=== PATIENT | female | born 1950 | race Caucasian/White ===

== ENCOUNTER → 2016-11-26 | Outpatient (CLI) | payer MEDICAID ==
[~2016-11-26] MED LIST: AC325T PO; ACHD5005 PO; ALAVERT PO; ALBU17AE3 IH; ALBU8.5H2 IH; ALBU8.5H4 IH; ALBUTEROL; ALPR.5T PO; ALPR1T PO; ASP325TEC PO; ASP81CT PO; ASP81TEC PO; ASPI-587 PO; ASPI-875 PO; ASPI325T32 PO; ATEN-155 PO; ATEN25TA PO; ATOR40TA70 PO; ATOR80TA PO; ATOR80TA75 PO; CETI10CA PO; CETI10TA17 PO; CIPR500T78 PO; CITA10TA PO; CITA10TA70 PO; CITA20TA4 PO; CITA40TA19 PO; CPR500T PO; CTLP20T PO; CYCL10TA9 PO; CYCL7.5T27 PO; DCS100C PO; DEXL60CA PO; DEXT1DRO7 OP; DOXY100C2 PO; FESO4TAB PO; FESO8TAB PO; FLUT1DIS26 IH; FLUT1DIS27 IH; FLUTICASONE; HYDR-2890 PO; HYDR-3714 PO; HYDR-3720 PO; HYDROCODONE PO; IPRA3AMP11 NEB; IPRA3AMP19 IH; IPRATROPIUM; ISM30TCR PO; LEVO125T66 PO; LEVO175T2 PO; LEVO175T3 PO; LEVO200T6 PO; LEVO500T69 PO; LORA10TA7 PO; LOSA50TA6 PO; LRT10T PO; LVT.15T PO; MECL25TA56 PO; METO25TA2 PO; MIRA50TA PO; MNTL10T PO; MTF500T PO; NAPR500T PO; NF-ROPIN4T PO; NITR100C3 PO; OMEP-10 PO; ONDAN4ODT PO; OXB5T PO; OXYC-12 PO; OXYC1TAB87 PO; PHEN100T17 PO; PHEN200T27 PO; PIRO-9 PO; PIRO20CA2 PO; PRCD5U PO; PRD10T PO; PRD20T PO; RANI-10 PO; RANI75TA30 PO; RLX60T PO; RNT150T PO; ROPI2TAB3 PO; ROPI2TAB4 PO; ROPI4TAB21 PO; ROPI4TAB3 PO; ROSU40TA PO; RT-COMBINH IH; SALMETEROL; SCOP1PAT TD; SIMV40TA2 PO; SULF1TAB35 PO; TELM40T PO; TELM80TA3 PO; TOLTA4 PO; TR1C15 TOP; TRAM50TA2 PO; TRIA16.5 NS; TRM50T PO; [UNRECOGNIZED DRUG - CODE] PO; [UNRECOGNIZED DRUG - CODE] PO; [UNRECOGNIZED DRUG - OTHER] VG; singular
--- OUTSIDE RECORDS SUMMARY | 2016-11-26 13:09 | XMS REPORT | Continuity of Care Document ---
Author Author [facility] Organization [facility] Address Unknown Phone Unavailable Care Team Providers Care Client Application Support Specialist Name Role Phone Dp, [facility] PCP [phone] Source Comments Some departments are not documenting in the electronic medical record. If you do not see the information that you expected, contact Release of Information in the Health Information Management department at [phone] for further assistance in locating additional records.[facility] Active Allergies and Adverse Reactions Allergen Noted Date Severity Reactions Comments Pcn 03/07/2015 High ANAPHYLAXIS Rocephin 03/07/2015 High ANAPHYLAXIS Current Medications Prescription Sig. Disp. Refills Start End Date Status Date HYDROCODONE BIT/HOMATROP Take by mouth. Active ME-BR (HYDROCODONE COMPOUND PO) rOPINIRole (REQUIP) 2 mg Take 2 mg by mouth at Active tablet bedtime daily. metFORMIN-XR(+) Take 500 mg by mouth Active (GLUCOPHAGE XR) 500 mg daily with dinner. tablet ranitidine (ZANTAC) 15 Take 75 mg by mouth twice Active mg/mL oral syrup daily. levothyroxine (SYNTHROID) Take 200 mcg by mouth Active 200 mcg tablet daily. citalopram (CELEXA) 10 mg Take 10 mg by mouth Active tablet daily. fluticasone-salmeterol Inhale 1 Puff by mouth Active (ADVAIR DISKUS) 500-50 every 12 hours. mcg inhalation disk fesoterodine ER(+) Take by mouth. Active (TOVIAZ) 8 mg tablet montelukast (SINGULAIR) Take 10 mg by mouth at Active 10 mg tablet bedtime daily. losartan (COZAAR) 50 mg Take 50 mg by mouth Active tablet daily. rosuvastatin (CRESTOR) 40 Take 40 mg by mouth Active mg tablet daily. Active Problems Problem Noted Date Incontinence 03/07/2015 Overview: 10y hx of JOSUE (UUI > ROSA) s/p: 02/2009 (Nory): Anterior repair with PVS - Miniarc 03/2013 (Nory): Macroplastique 02/2014 (Nory): PVS Still with UUI and irritative sxs refractory to mirabegron and multiple anticholinergics UDS (06/03/15): normal capacity, complete emptying; +DO with large leak; +LPP 06/11/15 100u botox-> significant improvement in urgency L ast Assessment & Plan: - patient to call when symptoms begin to appear and will reschedule, possibly at 150u Social History Tobacco Use Types Packs/Day Years Used Date Former Smoker Cigarettes 1 47 Smokeless Tobacco: Never Used Alcohol Use Drinks/Week oz/Week Comments Yes quitt a gr 21 Last Filed Vital Signs Vital Sign Reading Time Taken Blood Pressure 155/79 06/11/2015 9:30 AM CDT Pulse 78 06/11/2015 9:30 AM CDT Temperature 36.4 C (97.5 F) 06/11/2015 9:14 AM CDT Respiratory Rate - - Height 1.626 m (5' 4.02") 06/11/2015 6:40 AM CDT Weight 94.6 kg (208 lb 8.9 oz) 06/11/2015 6:40 AM CDT Body Mass Index 35.78 06/11/2015 6:40 AM CDT Oxygen Saturation 94% 06/11/2015 9:30 AM CDT Plan of Care Health Maintenance Due Date Last Done Comments Physical (Comprehensive) 1955 Exam Pertussis Vaccine 1959 Tetanus Vaccine 1965 Breast Cancer Screening 1988 Colorectal Cancer 1998 Screening Shingles Vaccine 2008 Osteoporosis Screening 2013 Prevnar/Pneumovax (#1) 2013 Influenza Vaccine 07/23/2016 Results from Last 3 Months Not on file
--- NOTE | 2016-11-29 16:29 | ECHOCARDIOGRAPHY REPORT ---
PROCEDURE PHYSICIAN: LELIA PINEDA DATE OF PROCEDURE: 11/26/2016 TWO DIMENSIONAL ECHOCARDIOGRAM REPORT PRIMARY PHYSICIAN: OTHER PHYSICIAN: REFERRING PHYSICIAN: Dr. Daniel Roberson ORDERING PHYSICIAN: INDICATION FOR THE PROCEDURE: 1. Coronary artery disease. 2. Hypertension. MEASUREMENTS DERIVED VALUES LV DIAMETER (LAX) NORMALS NORMALS Diastolic 4.9 (3.6-5.2) Eject. Fract. 45% (60%+/-6%) Systolic (2.3-3.9) Diastolic Vol. % Shortening (0.22-0.42) Systolic Vol. Aortic Root IVS THICKNESS Diastolic 1.1 (0.6-1.1) LVPW THICKNESS Diastolic 1 (0.6-1.1) LA DIAMETER Systolic 3.7 (2.1-3.7) FINDINGS: 1. Technical quality is good. 2. The left ventricle is normal in size with mild left ventricular hypertrophy noted diffusely. 3. Moderate hypokinesia was noted involving the mid to apical anterior wall and anterior septum. Systolic function is reduced. Estimated ejection fraction 45%. 4. The left atrium is normal in size. No clot or thrombus were seen within the left atrium. 5. The right atrium and right ventricle are normal in size. No clot or thrombus were seen within the right side. 6. Mitral valve is normal in morphology with mild mitral regurgitation noted by color Doppler flow. No mitral valve prolapse. No mitral valve stenosis. 7. Aortic valve is trileaflet with normal opening and closing pattern. No significant aortic valve stenosis was noted. Moderate aortic regurgitation noted by color Doppler flow. 8. Tricuspid valve is normal in morphology with mild tricuspid regurgitation noted by color Doppler flow. Doppler across tricuspid valve estimated pulmonary artery pressure of 23+ right atrial pressure. 9. Pulmonic valve is functioning normally. 10. No pericardial effusion. IN CONCLUSION: 1. Mild left ventricular hypertrophy noted diffusely. Moderate hypokinesia involving the mid to apical anterior wall and anterior septum. Systolic function is reduced. Estimated ejection fraction 45%. Some improvement compared to the study of 2013. 2. Moderate aortic regurgitation. 3. Mild mitral regurgitation, mild tricuspid regurgitation. 4. Estimated pulmonary artery pressure of 30 mmHg. Job ID: [id number] Dictated Date: 11/28/2016 08:58:36 Senior Quality Assurance Specialist Date: 11/29/2016 16:26:04 / mirtha
== END ==
LOC: CARD 13:05
PROVIDERS: ATTEND Internal Medicine Cardiovascular Disease
DX: I25.10 Atherosclerotic heart disease of native coronary artery without angina pectoris (principal); R07.9 Chest pain, unspecified; I10 Essential (primary) hypertension; E78.2 Mixed hyperlipidemia; K27.9 Peptic ulcer, site unspecified, unspecified as acute or chronic, without hemorrhage or perforation
CPT/HCPCS: 93306

== ENCOUNTER → 2016-11-30 | Outpatient (CLI) | payer MEDICAID ==
[~2016-11-30] VITALS: Ht 162.6 cm; Wt 93.0 kg
[~2016-11-30] MED LIST changes: +CATHETER FLUSH 10 ML SYR IV PRN; +REGADENOSON 0.4 MG/5 ML SYR (LEXISCAN) IV ONE
--- OUTSIDE RECORDS SUMMARY | 2016-11-30 07:54 | XMS REPORT | Continuity of Care Document ---
Author Author [facility] Organization [facility] Address Unknown Phone Unavailable Care Team Providers Care Automatic Brine Mixer Operator Name Role Phone Dp, [facility] PCP [phone] Source Comments Some departments are not documenting in the electronic medical record. If you do not see the information that you expected, contact Release of Information in the Health Information Management department at [phone] for further assistance in locating additional records.[facility] Active Allergies and Adverse Reactions Allergen Noted [...]
[2016-11-30 09:45] VITALS: BP 127/71
[2016-11-30 09:47] VITALS: BP 112/72
[2016-11-30 09:49] VITALS: BP 116/75
--- NOTE | 2016-12-02 07:19 | STRESS TEST ---
PROCEDURE PHYSICIAN: LELIA PINEDA LEXISCAN MYOVIEW STRESS TEST REPORT DATE OF PROCEDURE: 11/30/2016 REFERRING PHYSICIAN: Dr. Roberson, [facility] INDICATION: Coronary artery disease. Baseline heart rate is 59, baseline blood pressure: 119/70. Baseline EKG: Sinus rhythm with no ischemic changes. SUMMARY: The patient was injected with 10.99 mCi of technetium 99 Myoview and the resting images were obtained. Then the patient received 0.4 mg of Lexiscan followed by 32 mCi of technetium 99 Myoview. Throughout the test, there were no EKG changes. The resting and stress images were reviewed and compared in the short axis, horizontal long axis, and vertical long axis views. Review of the images showed breast attenuation affecting the quality of the study. There is mild decreased uptake at the mid to apical anterior wall, with mild reversibility. SSS is 2, SDS 2, probably secondary to the breast attenuation. On the gated images, the left ventricle appeared to be normal size with normal contractility. Calculated ejection fraction 60%. CONCLUSION: 1. The patient tolerated Lexiscan well. 2. Breast attenuation with decreased uptake at the mid to apical anterior wall, with subtle reversibility, probably secondary to breast attenuation, typical female pattern. No significant ischemia or infarction was noted. 3. Normal left ventricular size with normal contractility. Calculated ejection fraction 60%. Job ID: [id number] Dictated Date: 12/01/2016 08:36:25 Upholstery Auto Trimmer Date: 12/01/2016 10:56:02 / carlos
== END ==
LOC: CARD 07:51
PROVIDERS: ATTEND Internal Medicine Cardiovascular Disease
DX: I25.10 Atherosclerotic heart disease of native coronary artery without angina pectoris (principal); R07.9 Chest pain, unspecified; I10 Essential (primary) hypertension; E78.2 Mixed hyperlipidemia; K27.9 Peptic ulcer, site unspecified, unspecified as acute or chronic, without hemorrhage or perforation
CPT/HCPCS: 78452; 93017

== ENCOUNTER 2017-04-05 15:49 | Emergency (ER) | payer MEDICAID ==
[~2017-04-05] VITALS: Ht 162.6 cm; Wt 95.7 kg
[~2017-04-05 15:49] MED LIST changes: -CATHETER FLUSH 10 ML SYR IV PRN; -REGADENOSON 0.4 MG/5 ML SYR (LEXISCAN) IV ONE
[2017-04-05 16:11] VITALS: BP 134/76
--- NOTE | 2017-04-05 16:16 | ED Back Pain ---
General Chief Complaint: Back Problems Stated Complaint: L HIP/THIGH PAIN Source of Information: Patient Exam Limitations: No Limitations History of Present Illness Time Seen by Provider: 16:15 Initial Comments To ER with left flank pain that radiates to the left hip. This is been going on for about the past 3 days. She denies any known injury and she's never had this before. She denies any dysuria or changes in bowel habits. Timing/Duration: 1-2 Days Severity: Moderate Associated Symptoms: denies symptoms Allergies and Home Medications Allergies Coded Allergies: Penicillins (Unverified Allergy, Unknown, ANAPHALYTIC SHOCK, 03/20/14) ceftriaxone (Unverified Allergy, Unknown, 02/03/13) ceftriaxone sodium (Verified Allergy, Unknown, 03/20/14) Home Medications Albuterol 8.5 Gm Hfa.aer.ad, 1-2 PUFF IH Q4H PRN for SHORTNESS OF BREATH, ( Reported) Albuterol/Ipratropium 3 Ml Nebu, 3 ML NEB Q4H PRN for SHORTNESS OF BREATH, ( Reported) Aspirin 81 Mg Tablet.dr, 81 MG PO DAILY, (Reported) Cetirizine Hcl 10 Mg Capsule, 10 MG PO DAILY, (Reported) Ciprofloxacin 500 Mg Tab, 500 MG PO BID, #14 Ref 0 Prescribed by: LELIA PINEDA on 05/16/15 0730 Citalopram Hydrobromide 10 Mg Tablet, 10 MG PO DAILY, (Reported) Fesoterodine Fumarate 8 Mg Tab.sr.24h, 8 MG PO DAILY, (Reported) Fluticasone/Salmeterol 1 Disk Inhp, 1 PUFF IH BID, (Reported) 1 PUFF Hydrocodone Bit/Acetaminophen 1 Each Tablet, 1 TAB PO EVERY 4-6 HOURS PRN for PAIN, #90 (Reported) Levothyroxine Sodium 200 Mcg Tablet, 200 MCG PO DAILY, (Reported) Losartan Potassium 50 Mg Tablet, 50 MG PO DAILY, (Reported) Mirabegron 50 Mg Tab.er.24h, 50 MG PO DAILY, (Reported) Montelukast Sodium 10 Mg Tablet, 10 MG PO HS, (Reported) Naproxen 500 Mg Tablet, 500 MG PO BID, #20 Ref 0 Prescribed by: PANCHO CRUZ on 04/05/163 Ranitidine Hcl 150 Mg Tablet, 150 MG PO BID, (Reported) Ropinirole Hcl 4 Mg Tablet, 4 MG PO DAILY, (Reported) Rosuvastatin Calcium 40 Mg Tablet, 40 MG PO DAILY, (Reported) Sulfamethoxazole/Trimethoprim 1 Each Tablet, 1 EACH PO BID, #10 Ref 0 Prescribed by: PANCHO CRUZ on 04/05/16 2223 Sulfamethoxazole/Trimethoprim 1 Each Tablet, 1 EACH PO BID, #10 Prescribed by: DEEJAY FELIPE on 04/05/17 1759 Triamcinolone Acet 15 Gm Cr, 0 TOP BID, (Reported) APPLY SPRARINGLY TO AFFECTED AREA(S) Constitutional: see HPI EENTM: see HPI Respiratory: no symptoms reported Cardiovascular: no symptoms reported Genitourinary: no symptoms reported Musculoskeletal: see HPI Skin: no symptoms reported Psychiatric/Neurological: No Symptoms Reported Past Uyfxhfy-Jqzewi-Byhzzc Hx Patient Social History Alcohol Use: Denies Use Recreational Drug Use: No Smoking Status: Never a Smoker Former Smoker/When Quit: Aug 23, 1970 2nd Hand Smoke Exposure: No Recent Foreign Travel: No Contact w/Someone Who Travel: No Recent Hopitalizations: Yes (HYST,ANTONIA,CABG,APPY,BIAT.TKR,BREAST BX,FOOT SURG. 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 Genitourinary Hx Genitourinary Disorders: No Gastrointestinal Hx Gastrointestinal Disorders: Yes Gastrointestinal Disorders: Ulcer Musculoskeletal Hx Musculoskeletal Disorders: Yes (BILAT KNEE REPLACEMENT, BONE SPUR RIGHT HEEL ) Musculoskeletal Disorders: Osteoporosis, Arthritis, Chronic Back Pain Endocrine Hx Endocrine Disorders: Yes Endocrine Disorders: Hypothyroidsim, Diabetes, Non-Insulin dep HEENT HX ENT Disorders: Yes HEENT Disorders: Cataract, Eye Injury Loss of Vision: Left Cancer Hx Cancer: No Psychosocial Hx Psychiatric Problems: Yes Behavioral Health Disorders: Anxiety, Depression Integumentary HX Skin/Integumentary Disorder: No Blood Transfusions Hx Blood Disorders: No Family Medical History Significant Family History: No Pertinent Family Hx Family Medial History: Cancer G8 SISTER Cataract 19 MOTHER Family history: Arthritis 19 MOTHER G8 SISTER Family history: Diabetes mellitus 19 FATHER 19 MOTHER G8 BROTHER G8 SISTER Family history: Hypertension 19 FATHER 19 MOTHER Family history: Thyroid disorder 19 MOTHER Hearing loss G8 BROTHER Myocardial infarction 19 FATHER 19 MOTHER Parkinson's disease 19 MOTHER No Family History of: Abdominal aortic aneurysm Alcoholism Family history: Alzheimer's disease Family history: Asthma Family history: Gastrointestinal disease Hereditary disease History of - anemia History of - respiratory disease Kidney disease Prostate cancer Psychotic disorder Seizure disorder Stroke Physical Exam Vital Signs Vital Sign - Last 12Hours 04/05/17 16:11 Temp 98.1 Pulse 73 Resp 16 B/P (MAP) 134/76 Pulse Ox 98 O2 Delivery Room Air Capillary Refill : General Appearance: No Apparent Distress, WD/WN HEENT: PERRL/EOMI, TMs Normal Neck: Full Range of Motion, Normal Inspection Respiratory: No Accessory Muscle Use, No Respiratory Distress Gastrointestinal: Non Tender, Soft, Tenderness (left lower quadrant) Neurologic/Psychiatric: Alert, Oriented x3, No Motor/Sensory Deficits Skin: Normal Color, Warm/Dry Progress/Results/Core Measures Results/Orders Lab Results Laboratory Tests Test 04/05/17 16:29 04/05/17 17:14 Range/Units White Blood Count 7.0 4.3-11.0 10^3/uL Red Blood Count 5.10 4.35-5.85 10^6/uL Hemoglobin 14.4 11.5-16.0 G/DL Hematocrit 45 35-52 % Mean Corpuscular Volume 88 80-99 FL Mean Corpuscular Hemoglobin 28 25-34 PG Mean Corpuscular Hemoglobin Concent 32 32-36 G/DL Red Cell Distribution Width 15.1 H 10.0-14.5 % Platelet Count 254 130-400 10^3/uL Mean Platelet Volume 8.8 7.4-10.4 FL Neutrophils (%) (Auto) 57 42-75 % Lymphocytes (%) (Auto) 33 12-44 % Monocytes (%) (Auto) 7 0-12 % Eosinophils (%) (Auto) 2 0-10 % Basophils (%) (Auto) 0 0-10 % Neutrophils # (Auto) 4.0 1.8-7.8 X 10^3 Lymphocytes # (Auto) 2.3 1.0-4.0 X 10^3 Monocytes # (Auto) 0.5 0.0-1.0 X 10^3 Eosinophils # (Auto) 0.2 0.0-0.3 10^3/uL Basophils # (Auto) 0.0 0.0-0.1 10^3/uL Sodium Level 143 135-145 MMOL/L Potassium Level 4.2 3.6-5.0 MMOL/L Chloride Level 108 H 98-107 MMOL/L Carbon Dioxide Level 30 21-32 MMOL/L Anion Gap 5 5-14 MMOL/L Blood Urea Nitrogen 13 7-18 MG/DL Creatinine 1.02 0.60-1.30 MG/DL Estimat Glomerular Filtration Rate 54 BUN/Creatinine Ratio 13 Glucose Level 101 70-105 MG/DL Calcium Level 9.2 8.5-10.1 MG/DL Total Bilirubin 0.6 0.1-1.0 MG/DL Aspartate Amino Transf (AST/SGOT) 23 5-34 U/L Alanine Aminotransferase (ALT/SGPT) 25 0-55 U/L Alkaline Phosphatase 77 40-136 U/L Total Protein 7.3 6.4-8.2 G/DL Albumin 4.3 3.2-4.5 G/DL Urine Color YELLOW Urine Clarity SLIGHTLY CLOUDY Urine pH 5 5-9 Urine Specific [place] 1.020 1.016-1.022 Urine Protein 1+ H NEGATIVE Urine Glucose (UA) NEGATIVE NEGATIVE Urine Ketones NEGATIVE NEGATIVE Urine Nitrite POSITIVE H NEGATIVE Urine Bilirubin NEGATIVE NEGATIVE Urine Urobilinogen NORMAL NORMAL MG/DL Urine Leukocyte Esterase 3+ H NEGATIVE Urine RBC (Auto) 2+ H NEGATIVE Urine RBC NONE /HPF Urine WBC >100 H /HPF Urine Squamous Epithelial Cells 10-25 H /HPF Urine Crystals NONE /LPF Urine Bacteria MODERATE H /HPF Urine Casts NONE /LPF Urine Mucus NEGATIVE /LPF Urine Culture Indicated YES My Orders Orders - DEEJAY FELIPE THEATER TEACHER Cbc With Automated Diff (04/05/17 16:13) Comprehensive Metabolic Panel (04/05/17 16:13) Ua Culture If Indicated (04/05/17 16:13) Saline Lock/Iv-Start (04/05/17 16:13) Ct Abd/Pelvis Wo(Kidney Stone) (04/05/17 16:13) Ketorolac Injection (Toradol Injection) (04/05/17 17:15) Orphenadrine Injection (Norflex Injectio (04/05/17 17:15) Urine Culture (04/05/17 17:14) Levofloxacin Tablet (Levaquin Tablet) (04/05/17 18:00) Medications Given in ED Current Medications Medications Dose Ordered Sig/Rigo Route Start Time Stop Time Status Last Admin Dose Admin Ketorolac Tromethamine 30 mg ONCE ONCE IVP 04/05/17 17:15 04/05/17 17:16 DC 04/05/17 17:24 30 MG Orphenadrine Citrate 30 mg ONCE ONCE IVP 04/05/17 17:15 04/05/17 17:16 DC 04/05/17 17:24 30 MG Vital Signs/I&O Vital Sign - Last 12Hours 04/05/17 16:11 Temp 98.1 Pulse 73 Resp 16 B/P (MAP) 134/76 Pulse Ox 98 O2 Delivery Room Air Departure Impression Impression: Primary Impression: Urinary tract infectious disease Disposition: HOME, SELF-CARE Condition: Stable Departure-Patient Inst. Decision time for Depature: 17:58 Referrals: BUFFY PALOMINO MD (PCP) Primary Care Physician NALINI GOMEZ (Family) Primary Care Physician Patient Instructions: Urinary Tract Infection, Adult (DC) Add. Discharge Instructions: 1. Antibiotics as directed 2. Follow-up with your doctor later this week 3. Return to ER for any worsening All discharge instructions reviewed with patient and/or family. Voiced understanding. Scripts Sulfamethoxazole/Trimethoprim (Bactrim Ds Tablet) 1 Each Tablet 1 EACH PO BID, #14 TAB Prov: DEEJAY FELIPE APRN 04/05/17 DEEJAY FELIPE APRN April 05, 2017 16:16
[2017-04-05 16:34] LABS: BASOPHILS % (AUTO) 0 % (0-10); EOSINOPHILS # (AUTO) 0.2 10^3/uL (0.0-0.3); EOSINOPHILS % (AUTO) 2 % (0-10); LYMPHOCYTES # (AUTO) 2.3 X 10^3 (1.0-4.0); LYMPHOCYTES % (AUTO) 33 % (12-44); MEAN CORPUSCULAR HEMOGLOBIN 28 PG (25-34); MEAN CORPUSCULAR HGB CONC 32 G/DL (32-36); MEAN CORPUSCULAR VOLUME 88 FL (80-99); MEAN PLATELET VOLUME 8.8 FL (7.4-10.4); MONOCYTES # (AUTO) 0.5 X 10^3 (0.0-1.0); MONOCYTES % (AUTO) 7 % (0-12); NEUTROPHILS % (AUTO) 57 % (42-75); PLATELET COUNT 254 10^3/uL (130-400); RED CELL DISTRIBUTION WIDTH 15.1 % (10.0-14.5)
--- NOTE | 2017-04-05 16:51 | Diagnostic Imaging Report ---
PROCEDURE: CT urinary tract, rule out kidney stone. TECHNIQUE: Multiple contiguous axial images were obtained through the abdomen and pelvis without the use of intravenous contrast. INDICATION: Left flank pain. FINDINGS: Lung bases are clear. Liver appears normal. Gallbladder is surgically absent. Spleen is not enlarged. Pancreas appears normal. Adrenals are normal. There is a 5 cm cyst in the upper pole of the right kidney. There is a 13 mm cyst in the inferomedial aspect of the left kidney. There are no calculi. There is no hydronephrosis. There are no solid masses. Small bowel is not dilated. Colon is unremarkable. There is no intraperitoneal free air or free fluid. Uterus is surgically absent. IMPRESSION: Negative CT abdomen and pelvis. Dictated by: Dictated on workstation # [id number]
[2017-04-05 16:52] LABS: ALBUMIN 4.3 G/DL (3.2-4.5); BILIRUBIN,TOTAL 0.6 MG/DL (0.1-1.0); CALCIUM 9.2 MG/DL (8.5-10.1); CREATININE SERUM 1.02 MG/DL (0.60-1.30); POTASSIUM 4.2 MMOL/L (3.6-5.0); TOTAL PROTEIN 7.3 G/DL (6.4-8.2)
[2017-04-05] MEDS ORDERED: ORPHENADRINE 60 MG/2 ML (NORFLEX) AMP IVP ONE (17:15)
[2017-04-05] MEDS ORDERED: KETOROLAC 30 MG/ML VIAL IVP ONE (17:15)
[2017-04-05 17:38] LABS: BILIRUBIN,URINE NEGATIVE (NEGATIVE); KETONES,URINE NEGATIVE (NEGATIVE); LEUKOCYTE ESTERASE ,URINE 3+ (NEGATIVE); NITRITE,URINE POSITIVE (NEGATIVE); PH,URINE 5 (5-9); PROTEIN,URINE 1+ (NEGATIVE); UROBILINOGEN,URINE NORMAL (NORMAL)
[2017-04-05 17:53] LABS: WBC,URINE >100 /HPF
[2017-04-05] MEDS ORDERED: SULF1TAB35 PO ×2 (17:59→18:01)
[2017-04-05] MEDS ORDERED: LEVOFLOXACIN 500 MG TAB (LEVAQUIN) PO ONE (18:00)
== END 2017-04-05 18:24 | disposition home or self-care (01) ==
LOC: EDUNIT# 15:49 → ER 15:51
DX: N39.0 Urinary tract infection, site not specified (principal); Z79.82 Long term (current) use of aspirin; Z79.899 Other long term (current) drug therapy
CPT/HCPCS: 36415; 74176; 80053; 81000; 85025; 87077; 87088; 96374; 96375

== ENCOUNTER 2017-05-05 15:56 | Emergency (ER) | payer MEDICAID ==
[~2017-05-05] VITALS: Ht 162.6 cm; Wt 97.5 kg
[2017-05-05 16:40] LABS: BILIRUBIN,URINE NEGATIVE (NEGATIVE); KETONES,URINE NEGATIVE (NEGATIVE); LEUKOCYTE ESTERASE ,URINE 1+ (NEGATIVE); NITRITE,URINE NEGATIVE (NEGATIVE); PH,URINE 7 (5-9); PROTEIN,URINE NEGATIVE (NEGATIVE); UROBILINOGEN,URINE 1 MG/DL (NORMAL)
--- NOTE | 2017-05-05 17:04 | ED Back Pain ---
General Chief Complaint: Back Problems Stated Complaint: BACK PAIN Nursing Triage Note: AMB TO ED P C/O LOW BACK PAIN THAT HYDROCODONE NOT HELPING. Nursing Sepsis Screen: No Definite Risk Source of Information: Patient History of Present Illness Time Seen by Provider: 16:10 Initial Comments PT ARRIVES VIA POV-DROVE SELF HERE C/O CHRONIC LOWER BACK PAIN STATES IS WORSE THE LAST 2-3 DAYS--YET CLAIMS SHE HAS NOT TAKEN HER HYDROCODONE FOR 2-3 DAYS, "BECAUSE SHE IS JUST ABOUT OUT OF THEM"--"ONLY HAVE A COUPLE OF PILLS LEFT" "DIDN'T WANT TO USE THEM ALL UP" PT GOT RX FOR HYDROCODONE #112 FILLED ON 04/29/17--STATES SHE CANNOT REFILL UNTIL MAY 29 NO RADIATION OF PAIN NO PARESTHESIAS OR MOTOR DEFICITS NO BOWEL OR BLADDER FUNCTION PROBLEMS NO URINARY SYMPTOMS NO INJURY PT HAS AN APPOINTMENT TOMORROW WITH JAVIER GOMEZ AT [facility] FOR THIS PROBLEM Allergies and Home Medications Allergies Coded Allergies: Penicillins (Unverified Allergy, Unknown, ANAPHALYTIC SHOCK, 03/20/14) ceftriaxone (Unverified Allergy, Unknown, 02/03/13) ceftriaxone sodium (Verified Allergy, Unknown, 03/20/14) Home Medications Albuterol 8.5 Gm Hfa.aer.ad, 1-2 PUFF IH Q4H PRN for SHORTNESS OF BREATH, ( Reported) Albuterol/Ipratropium 3 Ml Nebu, 3 ML NEB Q4H PRN for SHORTNESS OF BREATH, ( Reported) Aspirin 81 Mg Tablet.dr, 81 MG PO DAILY, (Reported) Cetirizine Hcl 10 Mg Capsule, 10 MG PO DAILY, (Reported) Ciprofloxacin 500 Mg Tab, 500 MG PO BID, #14 Ref 0 Prescribed by: LELIA PINEDA on 05/16/15 0730 Citalopram Hydrobromide 10 Mg Tablet, 10 MG PO DAILY, (Reported) Fesoterodine Fumarate 8 Mg Tab.sr.24h, 8 MG PO DAILY, (Reported) Fluticasone/Salmeterol 1 Disk Inhp, 1 PUFF IH BID, (Reported) 1 PUFF Hydrocodone Bit/Acetaminophen 1 Each Tablet, 1 TAB PO EVERY 4-6 HOURS PRN for PAIN, #90 (Reported) Levothyroxine Sodium 200 Mcg Tablet, 200 MCG PO DAILY, (Reported) Losartan Potassium 50 Mg Tablet, 50 MG PO DAILY, (Reported) Mirabegron 50 Mg Tab.er.24h, 50 MG PO DAILY, (Reported) Montelukast Sodium 10 Mg Tablet, 10 MG PO HS, (Reported) Naproxen 500 Mg Tablet, 500 MG PO BID, #20 Ref 0 Prescribed by: PANCHO CRUZ on 04/05/162222 Ranitidine Hcl 150 Mg Tablet, 150 MG PO BID, (Reported) Ropinirole Hcl 4 Mg Tablet, 4 MG PO DAILY, (Reported) Rosuvastatin Calcium 40 Mg Tablet, 40 MG PO DAILY, (Reported) Sulfamethoxazole/Trimethoprim 1 Each Tablet, 1 EACH PO BID, #10 Ref 0 Prescribed by: PANCHO CRUZ on 04/05/162222 Sulfamethoxazole/Trimethoprim 1 Each Tablet, 1 EACH PO BID, #14 Prescribed by: DEEJAY FELIPE on 04/05/17 180 Triamcinolone Acet 15 Gm Cr, 0 TOP BID, (Reported) APPLY SPRARINGLY TO AFFECTED AREA(S) Constitutional: see HPI Respiratory: no symptoms reported Cardiovascular: no symptoms reported Gastrointestinal: no symptoms reported Genitourinary: no symptoms reported Musculoskeletal: see HPI, back pain Skin: no symptoms reported Psychiatric/Neurological: No Symptoms Reported Past Uwofgxo-Xxnpqj-Lsoyot Hx Patient Social History Alcohol Use: Denies Use Recreational Drug Use: No Smoking Status: Former Smoker Former Smoker/When Quit: Aug 23, 1970 2nd Hand Smoke Exposure: No Recent Foreign Travel: No Contact w/Someone Who Travel: No Recent Infectious Disease Expo: No Recent Hopitalizations: Yes (HYST,ANTONIA,CABG,APPY,BIAT.TKR,BREAST BX,FOOT SURG. 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 Genitourinary Hx Genitourinary Disorders: No Gastrointestinal Hx Gastrointestinal Disorders: Yes Gastrointestinal Disorders: Ulcer Musculoskeletal Hx Musculoskeletal Disorders: Yes (BILAT KNEE REPLACEMENT, BONE SPUR RIGHT HEEL ) Musculoskeletal Disorders: Osteoporosis, Arthritis, Chronic Back Pain Endocrine Hx Endocrine Disorders: Yes Endocrine Disorders: Hypothyroidsim, Diabetes, Non-Insulin dep HEENT HX ENT Disorders: Yes HEENT Disorders: Cataract, Eye Injury Loss of Vision: Left Cancer Hx Cancer: No Psychosocial Hx Psychiatric Problems: Yes Behavioral Health Disorders: Anxiety, Depression Integumentary HX Skin/Integumentary Disorder: No Blood Transfusions Hx Blood Disorders: No Family Medical History Family Medial History: Cancer G8 SISTER Cataract 19 MOTHER Family history: Arthritis 19 MOTHER G8 SISTER Family history: Diabetes mellitus 19 FATHER 19 MOTHER G8 BROTHER G8 SISTER Family history: Hypertension 19 FATHER 19 MOTHER Family history: Thyroid disorder 19 MOTHER Hearing loss G8 BROTHER Myocardial infarction 19 FATHER 19 MOTHER Parkinson's disease 19 MOTHER No Family History of: Abdominal aortic aneurysm Alcoholism Family history: Alzheimer's disease Family history: Asthma Family history: Gastrointestinal disease Hereditary disease History of - anemia History of - respiratory disease Kidney disease Prostate cancer Psychotic disorder Seizure disorder Stroke Physical Exam Vital Signs Vital Sign - Last 12Hours 05/05/17 16:06 Temp 98.4 Pulse 111 Resp 18 B/P (MAP) 100/56 Pulse Ox 95 O2 Delivery Room Air Capillary Refill : Less Than 3 Seconds General Appearance: No Apparent Distress, WD/WN, Other (DIRTY, MALODOROUS, CONSTANT MOUTH MOVEMENTS; WALKS UPRIGHT AND MOVES QUICKLY WITHOUT DIFFICULTY. ) Cardiovascular: Regular Rate, Rhythm, No Edema, No Murmur Respiratory: Normal Breath Sounds Gastrointestinal: Non Tender, Soft Back: Decreased Range of Motion, Other (MILD DIFFUSE LOWER BACK TENDERNESS. ) Extremity: Normal Range of Motion, No Pedal Edema, Other (DISTAL MOTOR/SENSORY/ VASCULAR INTACT) Neurologic/Psychiatric: Alert, Oriented x3, No Motor/Sensory Deficits, Normal Mood/Affect, drive away driver II-XII Norm as Tested, Other Skin: Normal Color, Warm/Dry Progress/Results/Core Measures Results/Orders Lab Results Laboratory Tests Test 05/05/17 16:25 Range/Units Urine Color YELLOW Urine pH 7 5-9 Urine Specific [place] 1.010 L 1.016-1.022 Urine Protein NEGATIVE NEGATIVE Urine Glucose (UA) NEGATIVE NEGATIVE Urine Ketones NEGATIVE NEGATIVE Urine Nitrite NEGATIVE NEGATIVE Urine Bilirubin NEGATIVE NEGATIVE Urine Urobilinogen 1 NORMAL MG/DL Urine Leukocyte Esterase 1+ H NEGATIVE Urine RBC (Auto) NEGATIVE NEGATIVE Urine RBC NONE /HPF Urine WBC 0-2 /HPF Urine Squamous Epithelial Cells 2-5 /HPF Urine Crystals NONE /LPF Urine Bacteria NONE /HPF Urine Casts NONE /LPF Urine Mucus NEGATIVE /LPF Urine Culture Indicated NO Urine Opiates Screen NEGATIVE NEGATIVE Urine Oxycodone Screen NEGATIVE NEGATIVE Urine Methadone Screen NEGATIVE NEGATIVE Urine Propoxyphene Screen NEGATIVE NEGATIVE Urine Barbiturates Screen NEGATIVE NEGATIVE Ur Tricyclic Antidepressants Screen NEGATIVE NEGATIVE Urine Phencyclidine Screen NEGATIVE NEGATIVE Urine Amphetamines Screen NEGATIVE NEGATIVE Urine Methamphetamines Screen NEGATIVE NEGATIVE Urine Benzodiazepines Screen NEGATIVE NEGATIVE Urine Cocaine Screen NEGATIVE NEGATIVE Urine Cannabinoids Screen NEGATIVE NEGATIVE My Orders Orders - VU CASTELLON DO Drug Screen Stat (Urine) (05/05/17 16:23) Ua Culture If Indicated (05/05/17 16:23) Ketorolac Injection (Toradol Injection) (05/05/17 17:30) Vital Signs/I&O Vital Sign - Last 12Hours 05/05/17 16:06 Temp 98.4 Pulse 111 Resp 18 B/P (MAP) 100/56 Pulse Ox 95 O2 Delivery Room Air Blood Pressure Mean: 71 Departure Impression Impression: Primary Impression: Chronic back pain Disposition: 01 HOME, SELF-CARE Condition: Stable Departure-Patient Inst. Referrals: BUFFY PALOMINO MD (PCP) Primary Care Physician NALINI GOMEZ (Family) Primary Care Physician Patient Instructions: MANAGING YOUR CHRONIC PAIN, Low Back Pain (DC) Add. Discharge Instructions: MOIST HEAT TO AREA AT 20 MINUTE INTERVALS FOLLOW UP WITH CHC TOMORROW SCHEDULED TAKE YOUR HOME MEDICATIONS PRESCRIBED All discharge instructions reviewed with patient and/or family. Voiced understanding. VU CASTELLON DO May 05, 2017 17:04
[2017-05-05 17:17] LABS: WBC,URINE 0-2 /HPF
[2017-05-05] MEDS ORDERED: KETOROLAC 60 MG/2 ML VIAL IM ONE (17:30)
[2017-05-05 17:51] VITALS: BP 100/56
== END 2017-05-05 17:51 | disposition home or self-care (01) ==
LOC: EDUNIT# 15:56 → ER 15:57
DX: G89.29 Other chronic pain (principal); M54.5 Low back pain; E11.9 Type 2 diabetes mellitus without complications; M17.0 Bilateral primary osteoarthritis of knee; I25.10 Atherosclerotic heart disease of native coronary artery without angina pectoris; Z96.653 Presence of artificial knee joint, bilateral; Z87.891 Personal history of nicotine dependence; Z79.82 Long term (current) use of aspirin; Z95.1 Presence of aortocoronary bypass graft
CPT/HCPCS: 80306; 81000; 96372; 99282

== ENCOUNTER → 2017-07-29 | Outpatient (CLI) | payer MEDICAID ==
[2017-07-29 14:03] LABS: ALBUMIN 4.2 GM/DL (3.2-4.5); BILIRUBIN,TOTAL 0.9 MG/DL (0.1-1.0); CALCIUM 9.6 MG/DL (8.5-10.1); CREATININE SERUM 0.97 MG/DL (0.60-1.30); POTASSIUM 4.5 MMOL/L (3.6-5.0); TOTAL PROTEIN 7.4 GM/DL (6.4-8.2)
== END ==
LOC: LAB 13:24
PROVIDERS: ATTEND Internal Medicine Cardiovascular Disease
DX: I25.10 Atherosclerotic heart disease of native coronary artery without angina pectoris (principal); I50.9 Heart failure, unspecified; R07.89 Other chest pain; I10 Essential (primary) hypertension; E78.2 Mixed hyperlipidemia; E11.9 Type 2 diabetes mellitus without complications
CPT/HCPCS: 36415; 80053; 80061

== ENCOUNTER 2017-08-10 15:27 | Emergency (ER) | payer MEDICAID ==
[~2017-08-10] VITALS: Ht 162.6 cm; Wt 97.5 kg
--- OUTSIDE RECORDS SUMMARY | 2017-08-10 15:33 | XMS REPORT | Clinical Summary ---
Author Author [facility] Organization [facility] Address Unknown Phone Unavailable Care Team Providers Care Fire Equipment Inspector Name Role Phone PCP Unavailable Source Comments Some departments are not documenting in the electronic medical record. If you do not see the information that you expected, contact Release of Information in the Health Information Management department at [phone] for further assistance in locating additional records.[facility] Allergies Active Allergy Reactions Severity Noted Date Comments Penicillins ANAPHYLAXIS High 03/07/2015 Ceftriaxone ANAPHYLAXIS High 03/07/2015 Current Medications Prescription Sig. Disp. Refills Start [...] appear and will reschedule, possibly at 150u Family History Medical History Relation Name Comments Heart Disease Father Diabetes Mother Hypertension Mother Kidney Disease Mother Relation Name Status Comments Father Mother Social History Tobacco Use Types Packs/Day Years Used Date Former Smoker Cigarettes 1 47 Smokeless Tobacco: Never Used Alcohol Use Drinks/Week oz/Week Comments Yes quitt a gr 19 Sex Assigned at Date Recorded Not on file Last Filed Vital Signs Vital Sign Reading Time Taken Blood Pressure 155/79 06/11/2015 9:30 AM CDT Pulse 78 06/11/2015 9:30 AM CDT Temperature 36.4 C (97.5 F) 06/11/2015 9:14 AM CDT Respiratory Rate - - Oxygen Saturation 94% 06/11/2015 9:30 AM CDT Inhaled Oxygen - - Concentration Weight 94.6 kg (208 lb 8.9 oz) 06/11/2015 6:40 AM CDT Height 162.6 cm (5' 4.02") 06/11/2015 6:40 AM CDT Body Mass Index 35.78 06/11/2015 6:40 AM CDT Plan of Treatment Health Maintenance Due Date Last Done Comments HEPATITIS C SCREENING 1948 PHYSICAL (COMPREHENSIVE) 1955 EXAM PERTUSSIS VACCINE 1959 TETANUS VACCINE 1965 BREAST CANCER SCREENING 1988 COLORECTAL CANCER 1998 SCREENING SHINGLES VACCINE 2008 OSTEOPOROSIS SCREENING 2013 PREVNAR/PNEUMOVAX (#1) 2013 INFLUENZA VACCINE 08/22/2017 Results Not on filefrom Last 3 Months
--- OUTSIDE RECORDS SUMMARY | 2017-08-10 15:37 | XMS REPORT ---
Author Author NALINI GOMEZ [facility] Address [address] [place] [address] Care Team Providers Care Bottom Stop Attacher Name Role Phone NALINI GOMEZ Unavailable PROBLEMS Type Condition ICD9-CM Code [id number] Code Onset Dates Condition Status SNOMED Code Problem Hypothyroidism, unspecified E03.9 Active 16201974 Problem Other chronic pain G89.29 Active 32389340 Problem Hypercholesterolemia 272.0 Active 98193998 Problem Controlled type 2 diabetes mellitus without complication, without long -term current use of insulin E11.9 Active 974490923 Problem Type 2 diabetes mellitus without complications E11.9 Active [id number] ALLERGIES Unknown Allergies SOCIAL HISTORY No smoking Hx information available PLAN OF CARE VITAL SIGNS MEDICATIONS Medication Instructions Dosage Frequency Start Date End Date Duration Status OneTouch Ultra Test TEST BLOOD SUGAR 12h 30 days Active RESULTS No Results PROCEDURES No Known procedures IMMUNIZATIONS No Known Immunizations
--- OUTSIDE RECORDS SUMMARY | 2017-08-10 15:38 | XMS REPORT ---
Author Author NALINI GOMEZ [facility] Address [address] [place] [address] Care Team Providers Care Mutual Fund Analyst Name Role Phone NALINI GOMEZ Unavailable PROBLEMS Type Condition ICD9-CM Code EPD33-LS Code Onset Dates Condition Status SNOMED Code Problem Hypothyroidism, unspecified E03.9 Active 66740138 Problem Other chronic pain G89.29 Active 15319648 Problem Hypercholesterolemia 272.0 Active 96662054 Problem Controlled type 2 diabetes mellitus without complication, without long -term current use of insulin E11.9 Active 109804485 Problem Type 2 diabetes mellitus without complications E11.9 Active 875526172 ALLERGIES Unknown Allergies SOCIAL HISTORY No smoking Hx information available PLAN OF CARE VITAL SIGNS MEDICATIONS Medication Instructions Dosage Frequency Start Date End Date Duration Status [place] 10-325 MG Orally 3 times a day 1 tablet as needed 8h Nov, 28 days Active RESULTS No Results PROCEDURES No Known procedures IMMUNIZATIONS No Known Immunizations
--- OUTSIDE RECORDS SUMMARY | 2017-08-10 15:39 | XMS REPORT ---
Author Author NALINI GOMEZ Organization [facility] Address [address] [place] [address] Care Team Providers Care Hospital Attendant Name Role Phone NALINI GOMEZ Unavailable PROBLEMS Type Condition ICD9-CM Code [id number] Code Onset Dates Condition Status SNOMED Code Problem Hypothyroidism, unspecified E03.9 Active 40276514 Problem Other chronic pain G89.29 Active 05965190 Problem Hypercholesterolemia 272.0 Active 57996526 Problem Controlled type 2 diabetes mellitus without complication, without long -term current use of insulin E11.9 Active 717662908 Problem Type 2 diabetes mellitus without complications E11.9 Active 241432945 ALLERGIES No Known Allergies SOCIAL HISTORY No smoking Hx information available PLAN OF CARE VITAL SIGNS MEDICATIONS Medication Instructions Dosage Frequency Start Date End Date Duration Status [place] 10-325 MG Orally 3 times a day 1 tablet as needed 8h Dec, 28 days Active RESULTS No Results PROCEDURES No Known procedures IMMUNIZATIONS No Known Immunizations
--- NOTE | 2017-08-10 16:44 | ED Lower Extremity ---
General Chief Complaint: Trauma-Non Activation Stated Complaint: LEFT FOOT INJ;FALL Nursing Triage Note: Patient reports falling last night, patient reports L ankle and foot pain. denies hitting head or LOC Nursing Sepsis Screen: No Definite Risk Source: patient Exam Limitations: no limitations History of Present Illness Time seen by provider: 16:41 Initial Comments To ER with left lateral foot pain and swelling after a fall that occurred last night. She states that she was in the bathroom when she was standing there and suddenly became dizzy. She grabbed onto the wall trying to hold herself but she was still dizzy which caused her to fall. She does have some intermittent shortness of breath. No palpitations. None currently. She does report a mild headache. Onset: just prior to arrival Severity: moderate Pain/Injury Location: left foot, left ankle Method of Injury: fell Modifying Factors: Worse With Movement Allergies and Home Medications Allergies Coded Allergies: Penicillins (Unverified Allergy, Unknown, ANAPHALYTIC SHOCK, 03/20/14) ceftriaxone (Unverified Allergy, Unknown, 02/03/13) ceftriaxone sodium (Verified Allergy, Unknown, 03/20/14) Home Medications Albuterol 8.5 Gm Hfa.aer.ad, 1-2 PUFF IH Q4H PRN for SHORTNESS OF BREATH, ( Reported) Albuterol/Ipratropium 3 Ml Nebu, 3 ML NEB Q4H PRN for SHORTNESS OF BREATH, ( Reported) Aspirin 81 Mg Tablet.dr, 81 MG PO DAILY, (Reported) Cetirizine Hcl 10 Mg Capsule, 10 MG PO DAILY, (Reported) Citalopram Hydrobromide 10 Mg Tablet, 10 MG PO DAILY, (Reported) Fesoterodine Fumarate 8 Mg Tab.sr.24h, 8 MG PO DAILY, (Reported) Fluticasone/Salmeterol 1 Disk Inhp, 1 PUFF IH BID, (Reported) 1 PUFF Hydrocodone Bit/Acetaminophen 1 Each Tablet, 1 TAB PO EVERY 4-6 HOURS PRN for PAIN, #90 (Reported) Levothyroxine Sodium 200 Mcg Tablet, 200 MCG PO DAILY, (Reported) Losartan Potassium 50 Mg Tablet, 50 MG PO DAILY, (Reported) Meclizine HCl 25 Mg Tablet, 25 MG PO TID PRN for DIZZINESS, #10 Prescribed by: DEEJAY FELIPE on 08/10/17 2035 Mirabegron 50 Mg Tab.er.24h, 50 MG PO DAILY, (Reported) Montelukast Sodium 10 Mg Tablet, 10 MG PO HS, (Reported) Ranitidine Hcl 150 Mg Tablet, 150 MG PO BID, (Reported) Ropinirole Hcl 4 Mg Tablet, 4 MG PO DAILY, (Reported) Rosuvastatin Calcium 40 Mg Tablet, 40 MG PO DAILY, (Reported) Triamcinolone Acet 15 Gm Cr, 0 TOP BID, (Reported) APPLY SPRARINGLY TO AFFECTED AREA(S) Constitutional: see HPI EENTM: see HPI Respiratory: no symptoms reported Cardiovascular: no symptoms reported Genitourinary: no symptoms reported Musculoskeletal: see HPI Skin: no symptoms reported Psychiatric/Neurological: See HPI, Headache Past Txmsnmm-Ueoarz-Bctemt Hx Patient Social History Alcohol Use: Denies Use Recreational Drug Use: No Smoking Status: Never a Smoker Type Used: Cigarettes 2nd Hand Smoke Exposure: No Recent Foreign Travel: No Contact w/Someone Who Travel: No Recent Infectious Disease Expo: No Recent Hopitalizations: Yes (HYST,ANTONAI,CABG,APPY,BIAT.TKR,BREAST BX,FOOT SURG. 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 Genitourinary History of Genitourinary Disor: No Gastrointestinal History of Gastrointestinal Di: Yes Gastrointestinal Disorders: Ulcer Musculoskeletal History of Musculoskeletal Dis: Yes (BILAT KNEE REPLACEMENT, BONE SPUR RIGHT HEEL) Musculoskeletal Disorders: Osteoporosis, Arthritis, Chronic Back Pain Endocrine History of Endocrine Disorders: Yes Endocrine Disorders: Hypothyroidsim, Diabetes, Non-Insulin dep HEENT HEENT Disorders: Cataract, Eye Injury Loss of Vision: Left Cancer History of Cancer: No Psychosocial History of Psychiatric Problem: Yes Behavioral Health Disorders: Anxiety, Depression Suicide Risk Score: 0 Integumentary History of Skin or Integumenta: No Blood Transfusions History of Blood Disorders: No Family Medical History Family Medial History: Cancer G8 SISTER Cataract 19 MOTHER Family history: Arthritis 19 MOTHER G8 SISTER Family history: Diabetes mellitus 19 FATHER 19 MOTHER G8 BROTHER G8 SISTER Family history: Hypertension 19 FATHER 19 MOTHER Family history: Thyroid disorder 19 MOTHER Hearing loss G8 BROTHER Myocardial infarction 19 FATHER 19 MOTHER Parkinson's disease 19 MOTHER No Family History of: Abdominal aortic aneurysm Alcoholism Family history: Alzheimer's disease Family history: Asthma Family history: Gastrointestinal disease Hereditary disease History of - anemia History of - respiratory disease Kidney disease Prostate cancer Psychotic disorder Seizure disorder Stroke Physical Exam Vital Signs Vital Sign - Last 12Hours 08/10/17 16:00 Temp 98.7 Pulse 93 Resp 18 B/P (MAP) 100/60 Pulse Ox 94 Capillary Refill : Less Than 3 Seconds General Appearance: WD/WN, no apparent distress HEENT: PERRL/EOMI, normal ENT inspection Neck: non-tender, full range of motion (10) Respiratory: no respiratory distress, no accessory muscle use Gastrointestinal: normal bowel sounds, non tender, soft Hips: bilateral hip non-tender, bilateral hip normal inspection, bilateral hip normal range of motion Legs: bilateral leg non-tender, bilateral leg normal inspection, bilateral leg normal range of motion Knees: bilateral knee non-tender, bilateral knee normal inspection, bilateral knee normal range of motion Ankles: bilateral ankle non-tender, bilateral ankle normal inspection, bilateral ankle normal range of motion Feet: left foot ecchymosis, left foot pain, left foot soft tissue tenderness, left foot swelling Neurologic/Psychiatric: alert, normal mood/affect, oriented x 3 Skin: normal color, warm/dry Progress/Results/Core Measures Results/Orders Lab Results Laboratory Tests Test 08/10/17 17:10 Range/Units White Blood Count 6.2 4.3-11.0 10^3/uL Red Blood Count 4.80 4.35-5.85 10^6/uL Hemoglobin 13.5 11.5-16.0 G/DL Hematocrit 42 35-52 % Mean Corpuscular Volume 88 80-99 FL Mean Corpuscular Hemoglobin 28 25-34 PG Mean Corpuscular Hemoglobin Concent 32 32-36 G/DL Red Cell Distribution Width 14.5 10.0-14.5 % Platelet Count 301 130-400 10^3/uL Mean Platelet Volume 8.7 7.4-10.4 FL Neutrophils (%) (Auto) 61 42-75 % Lymphocytes (%) (Auto) 29 12-44 % Monocytes (%) (Auto) 8 0-12 % Eosinophils (%) (Auto) 2 0-10 % Basophils (%) (Auto) 0 0-10 % Neutrophils # (Auto) 3.7 1.8-7.8 X 10^3 Lymphocytes # (Auto) 1.8 1.0-4.0 X 10^3 Monocytes # (Auto) 0.5 0.0-1.0 X 10^3 Eosinophils # (Auto) 0.1 0.0-0.3 10^3/uL Basophils # (Auto) 0.0 0.0-0.1 10^3/uL Sodium Level 142 135-145 MMOL/L Potassium Level 4.6 3.6-5.0 MMOL/L Chloride Level 105 98-107 MMOL/L Carbon Dioxide Level 25 21-32 MMOL/L Anion Gap 12 5-14 MMOL/L Blood Urea Nitrogen 21 H 7-18 MG/DL Creatinine 1.87 H 0.60-1.30 MG/DL Estimat Glomerular Filtration Rate 27 BUN/Creatinine Ratio 11 Glucose Level 93 70-105 MG/DL Calcium Level 9.4 8.5-10.1 MG/DL Total Bilirubin 0.8 0.1-1.0 MG/DL Aspartate Amino Transf (AST/SGOT) 25 5-34 U/L Alanine Aminotransferase (ALT/SGPT) 24 0-55 U/L Alkaline Phosphatase 74 40-136 U/L Total Protein 7.8 6.4-8.2 GM/DL Albumin 4.2 3.2-4.5 GM/DL My Orders Orders - DEEJAY FELIPE APRN Cbc With Automated Diff (08/10/17 16:40) Comprehensive Metabolic Panel (08/10/17 16:40) Ct Head Wo (08/10/17 16:40) Foot, Left, 3 Views (08/10/17 16:40) Ankle, Left, 3 Views (08/10/17 16:40) Saline Lock/Iv-Start (08/10/17 17:37) Normal Saline Bolus 1,000ml (08/10/17 17:45) Vital Signs/I&O Vital Sign - Last 12Hours 08/10/17 16:00 Temp 98.7 Pulse 93 Resp 18 B/P (MAP) 100/60 Pulse Ox 94 Blood Pressure Mean: 73 Departure Impression Impression: Primary Impression: Foot sprain Additional Impression: Acute renal insufficiency Disposition: HOME, SELF-CARE Condition: Stable Departure-Patient Inst. Decision time for Depature: 17:24 Referrals: [facility] (PCP) Primary Care Physician NALINI GOMEZ (Family) Primary Care Physician Patient Instructions: NO INSTRUCTIONS GIVEN Add. Discharge Instructions: 1. Follow-up with your regular doctor later this week 2. Return to ER for any concerns. Scripts Meclizine HCl (Meclizine HCl) 25 Mg Tablet 25 MG PO TID Y for DIZZINESS, #10 TAB Prov: DEEJAY FELIPE APRN 08/10/17 DEEJAY FELIPE APRN Aug 10, 2017 16:43
--- NOTE | 2017-08-10 17:13 | Diagnostic Imaging Report ---
EXAM: CT head. TECHNIQUE: Noncontrast axial images of the brain were obtained. INDICATION: Fall. A comparison 09/04/15 FINDINGS: There is no intracranial hemorrhage, edema or mass effect. The brain parenchyma appears unremarkable. No hydrocephalus. The visualized portions of the orbits and paranasal sinuses appear unremarkable. IMPRESSION: Unremarkable study. Dictated by: Dictated on workstation # [id number]
[2017-08-10 17:17] LABS: BASOPHILS % (AUTO) 0 % (0-10); EOSINOPHILS # (AUTO) 0.1 10^3/uL (0.0-0.3); EOSINOPHILS % (AUTO) 2 % (0-10); LYMPHOCYTES # (AUTO) 1.8 X 10^3 (1.0-4.0); LYMPHOCYTES % (AUTO) 29 % (12-44); MEAN CORPUSCULAR HEMOGLOBIN 28 PG (25-34); MEAN CORPUSCULAR HGB CONC 32 G/DL (32-36); MEAN CORPUSCULAR VOLUME 88 FL (80-99); MEAN PLATELET VOLUME 8.7 FL (7.4-10.4); MONOCYTES # (AUTO) 0.5 X 10^3 (0.0-1.0); MONOCYTES % (AUTO) 8 % (0-12); NEUTROPHILS # (AUTO) 3.7 X 10^3 (1.8-7.8); NEUTROPHILS % (AUTO) 61 % (42-75); PLATELET COUNT 301 10^3/uL (130-400); RED CELL DISTRIBUTION WIDTH 14.5 % (10.0-14.5); WHITE BLOOD COUNT 6.2 10^3/uL (4.3-11.0)
--- NOTE | 2017-08-10 17:17 | Diagnostic Imaging Report ---
Three views of the left ankle. INDICATION: Fall. FINDINGS: No fracture, dislocation or radiopaque foreign body. The ankle mortise is normal in configuration. There are prominent calcaneal spurs seen. IMPRESSION: No acute process. Dictated by: Dictated on workstation # [id number]
--- NOTE | 2017-08-10 17:18 | Diagnostic Imaging Report ---
Three views of the left foot. INDICATION: Fall. FINDINGS: No fracture, dislocation or radiopaque foreign body is seen. There is hallux valgus deformity and degenerative change about the first metatarsophalangeal joint. Prominent calcaneal spurs seen. IMPRESSION: Hallux valgus. Degenerative changes. Dictated by: Dictated on workstation # [id number]
[2017-08-10] MEDS ORDERED: MECL-106 PO (17:25)
[2017-08-10 17:35] LABS: ALBUMIN 4.2 GM/DL (3.2-4.5); BILIRUBIN,TOTAL 0.8 MG/DL (0.1-1.0); CALCIUM 9.4 MG/DL (8.5-10.1); CREATININE SERUM 1.87 MG/DL (0.60-1.30); POTASSIUM 4.6 MMOL/L (3.6-5.0); TOTAL PROTEIN 7.8 GM/DL (6.4-8.2)
[2017-08-10] MEDS ORDERED: NS IV 1000 ML 1,000 ML IV SCH (17:45)
[2017-08-10 18:48] VITALS: BP 112/62
== END 2017-08-10 18:48 | disposition home or self-care (01) ==
LOC: EDUNIT# 15:27 → ER 15:29
DX: S93.602A Unspecified sprain of left foot, initial encounter (principal); N28.9 Disorder of kidney and ureter, unspecified; J45.909 Unspecified asthma, uncomplicated; M81.0 Age-related osteoporosis without current pathological fracture; M19.90 Unspecified osteoarthritis, unspecified site; E03.9 Hypothyroidism, unspecified; E11.9 Type 2 diabetes mellitus without complications; F41.9 Anxiety disorder, unspecified; F32.9 Major depressive disorder, single episode, unspecified; Z96.653 Presence of artificial knee joint, bilateral; Z79.82 Long term (current) use of aspirin; Z82.49 Family history of ischemic heart disease and other diseases of the circulatory system; Z90.710 Acquired absence of both cervix and uterus; Z90.49 Acquired absence of other specified parts of digestive tract; Z95.1 Presence of aortocoronary bypass graft; W18.39XA Other fall on same level, initial encounter; Y92.002 Bathroom of unspecified non-institutional (private) residence as the place of occurrence of the external cause
CPT/HCPCS: 36415; 70450; 73610; 73630; 80053; 85025

== ENCOUNTER → 2017-12-23 | Outpatient (CLI) | payer MEDICARE, MEDICAID ==
[~2017-12-23] MED LIST changes: +MECL-106 PO; +NAPR-1071 PO; -NAPR500T PO
== END ==
LOC: CARD 12:32
PROVIDERS: ATTEND Internal Medicine Cardiovascular Disease
DX: I25.10 Atherosclerotic heart disease of native coronary artery without angina pectoris (principal); I11.0 Hypertensive heart disease with heart failure; I50.9 Heart failure, unspecified; R07.89 Other chest pain; E78.2 Mixed hyperlipidemia; E11.9 Type 2 diabetes mellitus without complications
CPT/HCPCS: 93306

== ENCOUNTER 2019-01-07 21:34 | Inpatient (IN) | payer MEDICARE, MEDICAID ==
[~2019-01-07] VITALS: Ht 162.6 cm; Wt 102.2 kg
[2019-01-07 22:02] LABS: BASOPHILS % (AUTO) 0 % (0-10); EOSINOPHILS % (AUTO) 0 % (0-10); HEMATOCRIT 44 % (35-52); HEMOGLOBIN 14.9 G/DL (11.5-16.0); LYMPHOCYTES # (AUTO) 0.5 X 10^3 (1.0-4.0); LYMPHOCYTES % (AUTO) 6 % (12-44); MEAN CORPUSCULAR HEMOGLOBIN 30 PG (25-34); MEAN CORPUSCULAR HGB CONC 34 G/DL (32-36); MEAN CORPUSCULAR VOLUME 88 FL (80-99); MEAN PLATELET VOLUME 9.5 FL (7.4-10.4); MONOCYTES # (AUTO) 0.4 X 10^3 (0.0-1.0); MONOCYTES % (AUTO) 5 % (0-12); NEUTROPHILS # (AUTO) 7.5 X 10^3 (1.8-7.8); NEUTROPHILS % (AUTO) 89 % (42-75); PLATELET COUNT 239 10^3/uL (130-400); RED CELL DISTRIBUTION WIDTH 14.2 % (10.0-14.5); WHITE BLOOD COUNT 8.4 10^3/uL (4.3-11.0)
[2019-01-07 22:23] LABS: ALBUMIN 4.3 GM/DL (3.2-4.5); BILIRUBIN,TOTAL 0.6 MG/DL (0.1-1.0); CALCIUM 9.4 MG/DL (8.5-10.1); CREATININE SERUM 1.23 MG/DL (0.60-1.30); POTASSIUM 4.8 MMOL/L (3.6-5.0); TOTAL PROTEIN 7.3 GM/DL (6.4-8.2)
[2019-01-07 22:24] LABS: BAND NEUTROPHILS 1 %; BASOPHILS % (MANUAL) 2 %; EOSINOPHILS % (MANUAL) 2 %; LYMPHOCYTES % (MANUAL) 3 %; METAMYELOCYTES % 1 %; MONOCYTES % (MANUAL) 1 %; NEUTROPHILS % (MANUAL) 88 %; REACTIVE LYMPHOCYTES 2 %
[2019-01-07 22:25] LABS: RBC MORPH NORMAL
[2019-01-07] MEDS ORDERED: NS IV 1000 ML 1,000 ML IV ONE (22:33)
[2019-01-07 22:43] LABS: BILIRUBIN,URINE NEGATIVE (NEGATIVE); CLARITY,URINE VERY CLOUDY; COLOR,URINE YELLOW; GLUCOSE, URINE (UA) 4+ (NEGATIVE); KETONES,URINE NEGATIVE (NEGATIVE); LEUKOCYTE ESTERASE ,URINE 1+ (NEGATIVE); NITRITE,URINE NEGATIVE (NEGATIVE); PH,URINE 5 (5-9); PROTEIN,URINE 2+ (NEGATIVE); UROBILINOGEN,URINE NORMAL (NORMAL)
[2019-01-07] MEDS ORDERED: inSUlin (REGULAR) HUMAN 1 UNIT/0.01 ML (CHARGE PER UNIT) IV ONE (22:45)
[2019-01-07] MEDS ORDERED: DEXAMETHASONE 4 MG/ML SDV (DECADRON) IH ONE (22:45)
[2019-01-07] MEDS ORDERED: ONDANSETRON 4 MG/2 ML (SDV) Z0FRAN IVP ONE (22:45)
[2019-01-07] MEDS ORDERED: RT-ALBUTEROL/IPRATROPIUM 3 ML (DUONEB) VIAL INH ONE (22:45)
[2019-01-07 22:54] LABS: BACTERIA,URINE LARGE /HPF; CALCIUM OXALATE CRYSTALS,UR RARE /LPF; SQUAMOUS EPITHELIAL CELL,UR 0-2 /HPF; WBC,URINE 0-2 /HPF; YEAST,URINE FEW /HPF
[2019-01-07] MEDS ORDERED: LEVOFLOXACIN 500 MG/100 ML IV 100 ML IV ONE (23:00)
[2019-01-07] MEDS ORDERED: NS IV 1000 ML 1,000 ML ONE (23:07)
[2019-01-07] MEDS ORDERED: inSUlin (REGULAR) HUMAN 1 UNIT/0.01 ML (CHARGE PER UNIT) ONE (23:12)
--- NOTE | 2019-01-07 23:17 | NUR ---
Report given to Luan DILL.
[2019-01-07] MEDS ORDERED: LEVOFLOXACIN 750 MG/150 ML IV 150 ML IV ONE (23:30)
--- OUTSIDE RECORDS SUMMARY | 2019-01-07 23:44 | XMS REPORT | Clinical Summary ---
Author Author [facility] Organization [facility] Address Unknown Phone Unavailable Care Team Providers Care Vending Supervisor Name Role Phone Gely Landin MD Unavailable Mary Maynard RN Unavailable Unavailable Latha, [facility] PCP Source Comments Some departments are not documenting in the electronic medical record. If you do not see the information that you expected, contact Release of Information in the Health Information Management department at [phone] for further assistance in locating additional records.[facility] Allergies Comments Active Allergy Reactions Severity Noted Date Penicillins ANAPHYLAXIS High 03/07/2015 Ceftriaxone ANAPHYLAXIS High 03/07/2015 Medications End Date Status Medication Sig Dispensed Refills Start Date Active HYDROCODONE BIT/HOMATROP Take by 0 ME-BR (HYDROCODONE mouth. COMPOUND PO) Active rOPINIRole (REQUIP) 2 mg Take 2 mg by 0 tablet mouth at bedtime daily. Active metFORMIN-XR(+) Take 500 mg 0 (GLUCOPHAGE XR) 500 mg by mouth tablet daily with dinner. Active ranitidine (ZANTAC) 15 Take 75 mg by 0 mg/mL oral syrup mouth twice daily. Active levothyroxine (SYNTHROID) Take 200 mcg 0 200 mcg tablet by mouth daily. Active citalopram (CELEXA) 10 mg Take 10 mg by 0 tablet mouth daily. Active fluticasone-salmeterol Inhale 1 Puff 0 (ADVAIR DISKUS) 500-50 by mouth mcg inhalation disk every 12 hours. Active fesoterodine ER(+) Take by 0 (TOVIAZ) 8 mg tablet mouth. Active montelukast (SINGULAIR) Take 10 mg by 0 10 mg tablet mouth at bedtime daily. Active losartan (COZAAR) 50 mg Take 50 mg by 0 tablet mouth daily. Active rosuvastatin (CRESTOR) 40 Take 40 mg by 0 mg tablet mouth daily. Active Problems Problem Noted Date Incontinence [...] Name Status Comments Father Mother Social History Date Tobacco Use Types Packs/Day Years Used Former Smoker Cigarettes 1 47 Smokeless Tobacco: Never Used Alcohol Use Drinks/Week oz/Week Comments Yes quitt a gr 19 Sex Assigned at Date Recorded Not on file Industry Job Start Date Occupation Not on file Not on file Not on file Travel End Travel History Travel Start No recent travel history available. Last Filed Vital Signs Time Taken Vital Sign Reading 06/11/2015 9:30 AM CDT Blood Pressure 155/79 06/11/2015 9:30 AM CDT Pulse 78 06/11/2015 9:14 AM CDT Temperature 36.4 C (97.5 F) - Respiratory Rate - 06/11/2015 9:30 AM CDT Oxygen Saturation 94% - Inhaled Oxygen - Concentration 06/11/2015 6:40 AM CDT Weight 94.6 kg (208 lb 8.9 oz) 06/11/2015 6:40 AM CDT Height 162.6 cm (5' 4.02") 06/11/2015 6:40 AM CDT Body Mass Index 35.78 Plan of Treatment Health Maintenance Due Date Last Done Comments HEPATITIS C SCREENING 1948 PHYSICAL (COMPREHENSIVE) 1955 EXAM DTAP/TDAP VACCINES (1 - 1966 Tdap) BREAST CANCER SCREENING 1988 COLORECTAL CANCER 1998 SCREENING SHINGLES RECOMBINANT 1998 VACCINE (1 of 2) OSTEOPOROSIS 2013 SCREENING/MONITORING PNEUMONIA (PCV13/PPSV23) 2013 VACCINES (1 of 2 - PCV13) INFLUENZA VACCINE 06/22/2018 Results Not on filefrom Last 3 Months Insurance Payer Benefit Subscriber ID Type Phone Address Plan / Group [employer] [place]ICAID [place] U[employer] xxxxxxxxxxx Medicaid [employer] [place] Advance Directives Patient has advance care planning documents on file. For more information, please contact: [facility] [address] [place] [address]
--- OUTSIDE RECORDS SUMMARY | 2019-01-07 23:45 | XMS REPORT ---
Author Author CAROLE ROJAS [facility] Address [address] [place] [address] Care Team Providers Care Reducing Salon Attendant Name Role Phone CAROLE ROJAS Unavailable PROBLEMS Type Condition ICD9-CM Code CUC01-FH Code Onset Dates Condition Status SNOMED Code Problem Hypothyroidism, unspecified E03.9 Active 04970328 Problem Hypothyroidism (acquired) E03.9 Active 06832341 Problem Acquired hypothyroidism E03.9 Active 081869233 Problem Other chronic pain G89.29 Active 03452196 Problem Hypertension, benign I10 Active 72180938 Problem Episode of recurrent major depressive disorder, unspecified depression episode severity F33.9 Active 287895892 Problem Mixed hyperlipidemia E78.2 Active 917855687 Problem Stress incontinence of urine N39.3 Active 42298175 Problem Urinary, incontinence, stress female N39.3 Active 65210397 Problem Hypercholesterolemia 272.0 Active 22476340 Problem Type 2 diabetes mellitus without complications E11.9 Active 869233736 Problem Other chronic pain G89.29 Active 24503390 Problem Panlobular emphysema J43.1 Active 6435472 Problem Controlled type 2 diabetes mellitus without complication, without long -term current use of insulin E11.9 Active 107495406 ALLERGIES Substance Reaction Event Type Date Status Rocephin Unknown Drug Allergy Oct, Active Penicillin V Potassium Unknown Drug Allergy Oct, Active Nsaids (non-steroidal Anti-inflammatory Drug) renal insuffiency Non Drug Allergy Oct, Active ENCOUNTERS Encounter Location Date Diagnosis [facility] [address], [place] [address] Oct, Stress incontinence of urine N39.3 [facility] [id number], [place] [address] Oct, Acute nasopharyngitis J00 [facility] [id number] [place] [address] 45396- 4990 Sep, Stress incontinence of urine N39.3 [facility] [address] [address]- 7699 Aug, Stress incontinence of urine N39.3 [place] [address] 26062- 1506 Jul, Stress incontinence of urine N39.3 [place] [address] 82557- 8489 Jun, [place] [address] 60713- 1605 Jun, Other chronic pain G89.29 [place] [address] 59819- 3740 Jun, Other chronic pain G89.29 [place] [address] 99057- 4226 Jun, Stress incontinence of urine N39.3 ; Controlled type 2 diabetes mellitus without complication, without long-term current use of insulin E11.9 and Hypertension, benign I10 [place] [address] [address]- 7913 Jun, [place] [address] 12783- 8392 Jun, [place] [address] 30120- 1771 May, [place] [address] 44915- 8968 May, Viral gastroenteritis A08.4 [place] [address] 52379- 5569 May, Acute diffuse otitis externa of left ear H60.312 and Acquired hypothyroidism E03.9 [place] [address] 21802- 0187 May, Episode of recurrent major depressive disorder, unspecified depression episode severity F33.9 ; Urinary, incontinence, stress female N39.3 ; Mixed hyperlipidemia E78.2 and Hypothyroidism (acquired) E03.9 [place] [address] 01447- 4882 May, [place] [address] 42915- 4861 May, Viral gastroenteritis A08.4 [place] [address] 84685- 2885 Apr, Acute diffuse otitis externa of left ear H60.312 and Hypothyroidism (acquired) E03.9 [place] [address] 80865- 5869 Apr, Viral gastroenteritis A08.4 and Acquired hypothyroidism E03.9 [place] [address] 63484- 8959 Apr, Type 2 diabetes mellitus without complications E11.9 and Panlobular emphysema J43.1 [place] [address] 52901- 5222 Apr, Viral gastroenteritis A08.4 [place] [id number] [place] [address] 33371- 3476 March, [place] [address] 42377- 5780 March, Viral gastroenteritis A08.4 [place] [address] 9[address] 2540 Feb, Panlobular emphysema J43.1 [place] [address] 65685- 2546 Feb, Panlobular emphysema J43.1 [place] [address] 73247- 9776 Feb, [place] [address] [place] [address]- 1221 Feb, [facility] [id number] [place] [address] 47651- 1556 Feb, Viral gastroenteritis A08.4 [place] [id number] [place] [address] 14221- 9097 Feb, Head lice B85.0 [place] [address] 92942- 9313 Feb, Medicare annual wellness visit, initial Z00.00 ; Head lice B85.0 ; Tinea corporis B35.4 and Enlarged lymph node R59.9 [place] [id number] [place] [address] 50792- 0302 Jan, Viral gastroenteritis A08.4 [place] [id number] [place] [address] 99079- 9215 Jan, [place] [id number] [place] [address] 52983- 6110 Dec, Controlled type 2 diabetes mellitus without complication, without long-term current use of insulin E11.9 [place] [id number] [place] [address] 59851- 4657 Dec, [place] [id number] [place] [address] 41264- 0050 Dec, Viral gastroenteritis A08.4 [place] [id number] [place] [address] 01920- 9048 Nov, Viral gastroenteritis A08.4 [place] [id number] [place] [address] 26437- 9878 Oct, Acute upper respiratory infection, unspecified J06.9 and Other viral agents as the cause of diseases classified elsewhere B97.89 [place] [address] [place] [address] 61550- 3848 Oct, Viral gastroenteritis A08.4 [place] [id number] [place] [address] 71037- 4566 Oct, Controlled type 2 diabetes mellitus without complication, without long-term current use of insulin E11.9 ; Encounter for immunization Z23 and Acute pain of left foot M79.672 [facility] [id number] [place] [address] 73377- 1180 Sep, Viral gastroenteritis A08.4 [facility] [address] 78116- 7563 Aug, Viral gastroenteritis A08.4 [place] [address] 01808- 9837 Jul, Viral gastroenteritis A08.4 [facility] [id number] [place] [address] 31971 -2357 Jul, Acute nasopharyngitis (common cold) J00 [place] [address] 14774- 0767 Jun, Viral gastroenteritis A08.4 [place] [id number] [place] [address] 36481- 4303 Jun, [place] [address] 85036- 7694 Jun, Viral gastroenteritis A08.4 [place] [id number] [place] [address] 71946- 9089 May, Patellar tendinitis, left knee M76.52 [facility] [id number] [place] [address] 42534- 4898 May, Viral gastroenteritis A08.4 [place] [address] 27271- 1637 Apr, Viral gastroenteritis A08.4 and Hypothyroidism, unspecified E03.9 [place] [id number] [place] [address] 83733- 9192 Apr, Pain in left knee M25.562 ; Acute left-sided low back pain without sciatica M54.5 and Type 2 diabetes mellitus without complications E11.9 [facility] [address], [place] [address]- 5707 07 Apr, 2017 Viral gastroenteritis A08.4 [facility] [id number], [place] [address] 5007 March, Viral gastroenteritis A08.4 [facility] [id number] [place] [address] 23874 -9056 27 Feb, 2017 Acute pain of left knee M25.562 [facility] [id number] [place] [address] 37926- 1185 13 Feb, 2017 Viral gastroenteritis A08.4 [facility] [id number] [place] [address] 61306- 8022 16 Jan, 2017 Viral gastroenteritis A08.4 and Controlled type 2 diabetes mellitus without complication, without long-term current use of insulin E11.9 [place] [id number] [place] [address] 80977- 8713 14 Jan, 2017 [place] [id number] [place] [address] 60077- 9086 16 Dec, 2016 Other chronic pain G89.29 ; Pain in left knee M25.562 ; Controlled type 2 diabetes mellitus without complication, without long-term current use of insulin E11.9 and Acute cystitis with hematuria N30.01 [place] [id number], [place] [address]- 9835 Dec, [place] [id number] [place] [address] 88932- 1196 Nov, Type 2 diabetes mellitus without complications E11.9 [place] [id number] [place] [address] 88791- 3655 Nov, [place] [id number] [place] [address] 67594- 2877 Oct, [place] [id number] [place] [address] 31997- 4191 Sep, [facility] [id number] [place] [address] 77418- 0729 Aug, [facility] [id number] [place] [address] 97996- 9951 Aug, [facility] [id number] [place] [address] 89530- 8283 Jul, Controlled type 2 diabetes mellitus without complication, without long-term current use of insulin E11.9 ; Callus of foot L84 and URI, acute J06.9 [place] [id number] [place] [address] 11043- 3487 Jul, [place] [id number] [place] [address] 61491- 5853 Jun, Onychomycosis B35.1 and Nail ingrowing L60.0 [place] [id number] [place] [address] 79122- 7249 Jun, [facility] [id number] [place] [address] 03090- 9843 Jun, Lumbar back pain with radiculopathy affecting left lower extremity M54.17 [place] [id number] [place] [address] 64742- 9773 Jun, [facility] [id number] [place] [address] 05709- 9947 Jun, Other chronic pain G89.29 [facility] [id number] [place] [address] 49368- 6325 Jun, Other chronic pain G89.29 [facility] [id number] [place] [address] 78526- 7241 Jun, Type 2 diabetes mellitus without complications E11.9 [facility] [address] [place] [address] 87787- 8765 Jun, [facility] [address], [place] [address]- 0442 Jun, Onychomycosis B35.1 ; Callus L84 and Rash R21 [facility] [address], [place] [address]- 0531 May, [facility] [id number] [place] [address] 08509- 9172 May, [facility] [id number] [place] [address] 77121- 5843 May, Type 2 diabetes mellitus without complications E11.9 [facility] [id number] [place] [address] 59710- 8984 May, [facility] [id number] [place] [address] 91294- 3776 Apr, [facility] [id number] [place] [address] 57736- 4946 Apr, Type 2 diabetes mellitus without complications E11.9 ; Acquired hypothyroidism E03.9 ; Callus of foot L84 and Upper respiratory tract infection, unspecified type J06.9 [facility] [address] [place] [address] 18680- 8208 March, [facility] [address], [place] [address]- 4394 Feb, [facility] [address], [place] [address]- 1881 Jan, Diabetes mellitus without mention of complication, type II or unspecified type, not stated as uncontrolled 250.00 [facility] [address], [place] [address]- 8251 Jan, [facility] [id number] [place] [address] 46676- 1199 Jan, Diabetes E11.9 and Hypothyroidism E03.9 [facility] [address], [place] [address]- 8530 Dec, Diarrhea R19.7 [facility] [place] [facility] [address] [facility] [id number] [place] [address] 2546 15 Dec, 2015 [facility] [address] [place] [address] 2546 Dec, Hypothyroidism, unspecified E03.9 [facility] [address] [place] [address]- 3626 Dec, [facility] [id number] [place] [address] 71226- 0870 Dec, Hypothyroidism, unspecified E03.9 [facility] [id number] [place] [address], [place] [address]- 2269 Dec, Diarrhea R19.7 [facility] [address] [place] [address]- 8766 Dec, Diarrhea R19.7 [facility] [address], [place] [address]- 2960 Nov, [facility] [address], [place] [address]- 4572 Nov, [facility] [address], [place] [address]- 6233 Oct, [facility] [address], [place] [address]- 5975 Sep, Postnasal drip R09.82 [facility] [address], [place] [address]- 6268 Sep, [facility] [address], [place] [address]- 3634 Sep, [facility] [address], [place] [address]- 3184 14 Aug, 2015 [facility] [address], [place] [address]- 9263 08 Aug, 2015 [facility] [address], [place] [address]- 0559 Jul, Hypothyroidism 244.9 [facility] [id number] [place] [address] 83608- 1798 Jul, Diabetes mellitus without mention of complication, type II or unspecified type, not stated as uncontrolled 250.00 [facility] [id number] [address]- 6538 14 Jul, 2015 [facility] [id number] [place] [address] 31425- 9840 Jul, [facility] [id number] [place] [address] 33854- 5697 Jun, [facility] [id number] [place] [address] 39424- 0699 May, Other chronic pain 338.29 [facility] [id number] [place] [address] 09274- 5663 May, Other chronic pain 338.29 [facility] [id number] [place] [address] 55339- 2871 May, [facility] [id number] [place] [address] 18467- 8221 May, [facility] [address] [place] [address] 99956- 1777 Apr, Rash 782.1 ; Hypercholesterolemia 272.0 and Hypothyroidism 244.9 [facility] [address], [place] [address]- 4586 Apr, [facility] [id number] [place] [address] 16103- 9538 Apr, [facility] [address], [place] [address]- 3706 March, [facility] [address], [place] [address]- 0660 Feb, [facility] [id number] [place] [address]- 8308 13 Feb, 2015 [facility] [address] [id number] [place] [address]- 4156 Jan, [facility] [place] [facility] [address] [id number] [place] [address]- 1797 Jan, [facility] [place] [facility] [address] [id number] [place] [address]- 5455 Jan, [facility] [place] [facility] [address] [id number] [place] [address]- 8792 Jan, [facility] [place] [facility] [address] [id number] [place] [address]- 3874 Jan, [facility] [place] [facility] [address] [id number] [place] [address]- 5164 Jan, [facility] [place] [facility] [address] [id number] [place] [address]- 5979 Jan, [facility] [place] [facility] [address] [id number] [place] [address]- 6834 Dec, [facility] [place] [facility] [address] [id number] [place] [address]- 4002 Dec, [facility] [place] [facility] [address] [id number] [place] [address]- 2368 Nov, [facility] [place] [facility] [address] [id number] [place] [address]- 5805 Nov, [facility] [place] [facility] [address] [id number] [place] [address]- 3679 Nov, [facility] [place] [facility] [address] [id number] [place] [address]- 2473 Nov, [facility] [place] [facility] [address] [id number] [place] [address]- 0756 Nov, [facility] [place] [facility] [address] [id number] [place] [address]- 1158 Nov, [facility] [place] [facility] [address] [id number] [place] [address]- 8731 Oct, [facility] [place] [facility] [address] [id number] [place] [address]- 1842 Oct, [facility] [place] [facility] [address] [id number] [place] [address]- 2043 Sep, [facility] [place] [facility] [address] [id number] [place] [address]- 6104 Sep, [facility] [place] [facility] [address] [id number] [place] [address]- 7098 Sep, [facility] [place] [facility] [address] [id number] [place] [address]- 9464 Sep, [facility] [place] [facility] [address] [id number] [place] [address]- 9064 Aug, [facility] [place] [facility] [address] [id number] [place] [address]- 8344 Aug, [facility] [place] [facility] [address] [id number] [place] [address]- 0725 Jul, [facility] [place] [facility] [address] [id number] [place] [address]- 0368 Jul, [facility] [place] [facility] [address] [id number] [place] [address]- 4360 Jun, [facility] [place] [facility] [address] [id number], [place] [address]- 5886 Jun, [facility] [place] [facility] [address] [id number] [place] [address]- 8053 Jun, [facility] [place] [facility] [address] [id number] [place] [address]- 0238 Jun, [facility] [place] [facility] [address] [id number] [place] [address]- 1770 May, [facility] [place] [facility] [address] [id number] [place] [address]- 9131 May, [facility] [place] [facility] [address] [id number] [place] [address]- 6897 May, [facility] [place] [facility] [address] [id number] [place] 4925 May, [facility] [place] [facility] [address] [id number] [place] [address]- 8410 Apr, [facility] [place] [facility] [address] [id number] [place] [address]- 3917 Apr, [facility] [place] [facility] [address] [id number] [place] [address]- 8099 March, [facility] [place] [facility] [address] [id number] [place] [address]- 7638 March, [facility] [place] [facility] [address] [id number] [place] [address]- 3354 March, [facility] [place] [facility] [address] [id number] [place] [address]- 2027 March, [facility] [place] [facility] [address] [id number] [place] [address]- 7523 March, [facility] [place] [facility] [address] [id number] [place] [address]- 8418 March, [facility] [place] [facility] [address] [id number] [place] [address]- 0116 Feb, [facility] [place] [facility] [address] [id number] [place] [address]- 9555 Feb, [facility] [place] [facility] [address] [id number] [place] [address]- 0514 Feb, [facility] [place] [facility] [address] [id number] [place] [address]- 7249 Feb, [facility] [place] [facility] [address] [id number] [place] [address]- 4301 Feb, [facility] [place] [facility] [address] [id number] [place] [address]- 9468 Feb, [facility] [place] [facility] [address] [id number] [place] [address]- 1337 Feb, [facility] [place] [facility] [address] [id number] [place] [address] Feb, [facility] [place] [facility] [address] [id number] [place] [address] Jan, [facility] [place] [facility] [address] [id number] [place] [address] Jan, [facility] [place] [facility] [address] [id number] [place] [address] Jan, [facility] [place] [facility] [address] [id number] [place] [address] Jan, [facility] [place] [facility] [address] [id number] [place] [address] Jan, [facility] [place] [facility] [address] [id number] [place] [address] Jan, [facility] [place] [facility] [address] [id number] [place] [address] Jan, [facility] [place] [facility] [address] [id number] [place] [address] Jan, [facility] [place] [facility] [address] [id number] [place] [address] 31[address] Jan, [facility] [place] [facility] [address] [id number] [place] [address] Dec, [facility] [place] [facility] [address] [id number] [place] [address] Dec, [facility] [place] [facility] [address] [id number] [place] [address] Nov, [facility] [place] [facility] [address] [id number], [place] [address] Nov, [facility] [place] [facility] [address] [id number] [place] [address] Nov, [facility] [place] [facility] [address] [id number] [place] [address]- [address]147 Nov, [facility] [place] [facility] [address] [id number] [place] [address] Nov, [facility] [place] [facility] [address] [id number] [place] [address] Nov, [facility] [place] [facility] [address] [id number] [place] [address] Oct, [facility] [place] [facility] [address] [id number] [place] [address] Oct, [facility] [place] [facility] [address] [id number] [place] [address] Sep, [facility] [place] [facility] [address] [id number] [place] [address] Sep, [facility] [place] [facility] [address] [id number], [place] [address] Sep, [facility] [place] [facility] [address] [id number] [place] [address] Sep, [facility] [place] [facility] [address] [id number], [place] [address] Sep, [facility] [place] [facility] [address] [id number], [place] [address] Sep, [facility] [place] [facility] [address] [id number], [place] [address] Sep, [facility] [place] [facility] [address] [id number], [place] [address] Sep, [facility] [place] [facility] [address] [id number] [place] [address] Aug, [facility] [place] [facility] [address] [id number] [place] [address] Aug, [facility] [address] [id number] [place] [address]76 Aug, [facility] [place] [facility] [address] [id number] [place] [address] Jul, [facility] [address] [id number] [place] [address] Jul, [facility] [address] [id number] [place] [address] Jul, [facility] [address] [id number] [place] [address] Jun, [facility] [address] [id number] [place] [address] Jun, [facility] [address] [id number] [place] [address] Jun, [facility] [address] [id number] [place] [address] Jun, [facility] [address] [id number] [place] [address] Jun, [facility] [address] [id number] [place] [address] Jun, [facility] [place] [facility] [address] [id number] [place] [address] May, [facility] [address] [address] [id number] [place] [address] May, [facility] [place] [facility] [address] [id number] [place] [address] Apr, [facility] [place] [facility] [address] [id number] [place] [address] Apr, [facility] [place] [facility] [address] [id number] [place] [address] March, [facility] [address] [id number] [place] [address] Feb, [facility] [address] [id number] [place] [address] Feb, [facility] [address] [id number] [place] [address] 16 Feb, 2013 [facility] [address] [id number] [place] [address] Feb, [facility] [address] [id number] [place] [address] Jan, [facility] [address] [id number] [place] [address] Jan, [facility] [address] [id number] [place] [address] Jan, [facility] [address] [id number] [place] [address] Jan, [facility] [address] [id number] [place] [address] Jan, [facility] [address] [id number] [place] [address] Dec, [facility] [address] [id number] [place] [address] Nov, [facility] [place] [facility] [address] [id number] [place] [address] Nov, [facility] [place] [facility] [address] [id number] [place] [address] Oct, [facility] [place] [facility] [address] [id number] [place] [address] Oct, [facility] [place] [facility] [address] [id number] [place] [address] Oct, [facility] [place] [facility] [address] [id number] [place] [address] Oct, [facility] [place] [facility] [address] [id number] [place] [address] Oct, [facility] [place] [facility] [address] [id number] [place] [address] Oct, [facility] [place] [facility] [address] [id number] [place] [address] Oct, [facility] [place] [facility] [address] [id number] [place] [address] Oct, [facility] [place] [facility] [address] [id number] [place] [address] Aug, [facility] [place] [facility] [address] [id number] [place] [address] 30 Aug, 2012 [facility] [place] [facility] [address] [facility] [id number] [place] [address] Aug, [facility] [place] [facility] [address] [id number] [place] [address] Aug, [facility] [place] [facility] [address] [id number] [place] [address] Aug, [facility] [place] [facility] [address] [facility] [id number] [place] [address] 19 Aug, 2012 [facility] [place] [facility] [address] [facility] [id number] [place] [address] 15 Aug, 2012 [facility] [place] [facility] [address] [id number], [place] [address] 27 Jul, 2012 [facility] [place] [facility] [address] [id number] [place] [address] 27 Jul, 2012 [facility] [place] [facility] [address] [facility] [id number] [place] [address] 27 Jul, 2012 [facility] [place] [facility] [address] [facility] [id number], [place] [address] 27 Jul, 2012 [facility] [place] [facility] [address] [id number] [place] [address] 1680 Jul, [facility] [place] [facility] [address] [id number] [place] [address] Jun, [facility] [place] [facility] [address] [id number] [place] [address] Jun, [facility] [place] [facility] [address] [id number] [place] [address] Jun, [facility] [place] [facility] [address] [id number] [place] [address] May, [facility] [place] [facility] [address] [id number] [place] [address] May, [facility] [place] [facility] [address] [id number] [place] [address] May, [facility] [place] [facility] [address] [id number] [place] [address] May, [facility] [place] [facility] [address] [id number] [place] [address] May, [facility] [place] [facility] [address] [id number] [place] [address] May, [facility] [place] [facility] [address] [id number] [place] [address] May, [facility] [place] [facility] [address] [id number] [place] [address] 1496 Apr, [facility] [place] [facility] [address] [id number] [place] [address] Apr, [facility] [place] [facility] [address] [id number] [place] [address] March, [facility] [place] [facility] [address] [id number] [place] [address] Feb, [facility] [place] [facility] [address] [id number] [place] [address]- 6265 30 Jan, 2012 [facility] [place] [facility] [address] [id number] [place] [address]- [address] 28 Jan, 2012 [facility] [place] [facility] [address] [id number] [place] [address] 0326 28 Jan, 2012 [facility] [place] [facility] [address] [id number] [place] [address]- 5526 28 Jan, 2012 [facility] [place] [facility] [address] [id number] [place] [address] 9959 Jan, [facility] [place] [facility] [address] [id number] [place] [address] 69[address] Jan, [facility] [place] [facility] [address] [id number] [place] [address]- 8765 Jan, [facility] [place] [facility] [address] [id number] [place] [address] Jan, [facility] [place] [facility] [address] [id number] [place] [address]- 6581 Jan, [facility] [place] [facility] [address] [id number] [place] [address] 4318 Jan, [facility] [place] [facility] [address] [id number] [place] [address] 3414 Dec, [facility] [place] [facility] [address] [id number] [place] [address] 4855 Dec, [facility] [place] [facility] [address] [id number] [place] [address] Dec, [facility] [place] [facility] [address] [id number] [place] [address] 8358 Dec, [facility] [place] [facility] [address] [id number] [place] [address]- 7003 27 Dec, 2011 [facility] [place] [facility] [address] [facility] [id number] [place] [address]- 0[address] 17 Dec, 2011 [facility] [place] [facility] [address] [id number], [place] [address] Dec, [facility] [id number], [place] [address] Dec, [facility] [id number], [place] [address] 25[address] Nov, [facility] [id number] [place] [address] Nov, [facility] [id number], [place] [address] 25[address] Nov, [facility] [id number] [place] [address] Oct, [facility] [id number] [place] [address]- [address]99 Oct, [facility] [id number], [place] [address] Oct, [facility] [id number], [place] [address] 9[address] Oct, [facility] [address] [id number], [place] [address] Sep, IMMUNIZATIONS No Known Immunizations SOCIAL HISTORY Never Assessed REASON FOR VISIT Coughing x 1 week. Pt states her coughs are forceful enough to cause her chest to hurt. OTC cough medicine has not provided relief. No self-treatment as of today. [facility] PLAN OF CARE Activity Details Follow Up prn Reason: VITAL SIGNS Height 64 in 2018-11-02 Weight 220 lbs 2018-11-02 Temperature 97.6 degrees Fahrenheit 2018-11-02 Heart Rate 76 bpm 2018-11-02 Respiratory Rate 20 2018-11-02 BMI 37.76 kg/m2 2018-11-02 Blood pressure systolic 120 mmHg 2018-11-02 Blood pressure diastolic 80 mmHg 2018-11-02 MEDICATIONS Medication Instructions Dosage Frequency Start Date End Date Duration Status Blood Pressure Monitor 1 as directed Jun, Active Blood Glucose Test - In Vitro 2 times a day, one touch ultra test blood sugar Active Gabapentin 100 MG TAKE ONE CAPSULE BY MOUTH ONCE DAILY 90 Active OneTouch Delica Lancets 33G 33 test blood sugar 12h Active Cetirizine HCl 10 MG TAKE ONE TABLET BY MOUTH ONCE DAILY 30 Active Ventolin HFA 108 (90 Base) MCG/ACT Inhalation every 6 hrs 2 puffs as needed 6h 30 Feb, 2018 Active Triamcinolone Acetonide 0.1 % Externally Twice a day 1 application to affected area 12h Apr, Active Zofran 4 mg Orally 3 times a day 1 tablet 8h 10 Active Obgsdjtf-Gxegxbwrt-PD 1 % Otic Three times a day 4 drops into affected ear 8h Apr, Active Terbinafine HCl 1 % Externally Twice a day 1 application to affected area 12h Feb, Active Imipramine HCl 25 MG Orally Once a day 1 tablet at bedtime 24h May, 30 day(s) Active Tessalon Perles 100 MG Orally Three times a day 1 capsule as needed 8h Oct, 5 days Active Natroba 0.9 % Externally one time, may repeat if needed apply contents of bottle to cover scalp and hair Feb, Active Blood Glucose Monitor System w/Device subcutaneously 2 times a day test blood sugar 12h Active Advair Diskus 500-50 MCG/DOSE 1 puff 12h Active Metformin HCl 500 mg 2 tablets 12h Active Incontinence Brief Large - as directed 8h Jun, Active Ondansetron HCl 4 MG TAKE ONE TABLET BY MOUTH THREE TIMES DAILY FOR 10 DAYS 10 Active Atorvastatin Calcium 40 mg Orally Once a day 1 tablet 24h 30 Active Levothyroxine Sodium 175 MCG Orally Once a day 1 tablet on an empty stomach in the morning 24h Active Ropinirole HCl 4 MG TAKE ONE TABLET BY MOUTH ONCE DAILY 90 Active [place] 10-325 MG Orally every 6 hrs 1 tablet as needed 6h Sep, 28 days Active Citalopram Hydrobromide 10 MG TAKE ONE TABLET BY MOUTH ONCE DAILY 90 Active Cozaar 50 MG TAKE ONE TABLET BY MOUTH ONCE DAILY 30 Active Trospium Chloride 20 MG Orally Once a day 1 tablet at bedtime on an empty stomach 24h 30 Active Ranitidine HCl 150 MG TAKE ONE TABLET BY MOUTH TWICE DAILY NEEDED 90 Active Montelukast Sodium 10 MG TAKE ONE TABLET BY MOUTH ONCE DAILY 90 Active RESULTS No Results PROCEDURES Procedure Date Ordered Result Body Site [facility] VISIT ESTABLISHED PATIENT Nov 02, 2018 INSTRUCTIONS MEDICATIONS ADMINISTERED No Known Medications MEDICAL (GENERAL) HISTORY Type Description Date Medical History cardiovascular disorder-CAD s/p CABG x 2 (Sherri) Medical History hypertension Medical History hyperlipidemia Medical History thyroid disorder-hypothyroidism Medical History type II diabetes Medical History Arthritis Medical History chronic pain Medical History depression Medical History anxiety Medical History gastric ulcers Surgical History cholecystectomy 1997 Surgical History heart cath-patent grafts 04/2011 Surgical History angioplasty 08/2013 Surgical History orthopedic surgery-total knee replacement (left), also had right done, and right heel spur removed (Reveal) 2004, 2010, 2011 Surgical History thyroidectomy Surgical History hysterectomy Surgical History bladder surgery Surgical History intracapsular cataract extraction with insertion of intraocular lens prosthesis Hospitalization History admitted to [facility] for bronchitis then went into cardiac arrest and was resuscitated. She was in the hospital for 7 days. 2012 Hospitalization History surgeries
--- OUTSIDE RECORDS SUMMARY | 2019-01-07 23:45 | XMS REPORT ---
Author Author NALINI GOMEZ Organization [facility] Address [address] [place] [address] Care Team Providers Care Roguer Name Role Phone NALINI GOMEZ Unavailable PROBLEMS Type Condition ICD9-CM Code FBD46-BC Code Onset Dates Condition Status SNOMED Code Problem Hypothyroidism, unspecified E03.9 Active 81780406 Problem Hypothyroidism (acquired) E03.9 Active 42331615 Problem Acquired hypothyroidism E03.9 Active 720408589 Problem Other chronic pain G89.29 Active 97256899 Problem Hypertension, benign I10 Active 43161686 Problem Episode of recurrent major depressive disorder, unspecified depression episode severity F33.9 Active 979101658 Problem Mixed hyperlipidemia E78.2 Active 824500053 Problem Stress incontinence of urine N39.3 Active 06089486 Problem Urinary, incontinence, stress female N39.3 Active 57738970 Problem Hypercholesterolemia 272.0 Active 82517321 Problem Type 2 diabetes mellitus without complications E11.9 Active 711632610 Problem Other chronic pain G89.29 Active 66231234 Problem Panlobular emphysema J43.1 Active 1297141 Problem Controlled type 2 diabetes mellitus without complication, without long -term current use of insulin E11.9 Active 308547161 ALLERGIES No Information ENCOUNTERS Encounter Location Date Diagnosis [facility] [id number] [place] [address] 81533- 8515 Oct, Stress incontinence of urine N39.3 [facility] [id number] [place] [address] 69390 -9716 Oct, Acute nasopharyngitis J00 [facility] [id number] [place] [address] 27529- 8210 Sep, Stress incontinence of urine N39.3 [facility] [id number] [place] [address] 24850- 8037 Aug, Stress incontinence of urine N39.3 [place] [id number] [place] [address] 67316- 3327 Jul, Stress incontinence of urine N39.3 [place] [id number] [place] [address] 16437- 0132 Jun, [place] [address] 89610- 9418 Jun, Other chronic pain G89.29 [place] [address] 71666- 5113 Jun, Other chronic pain G89.29 [place] [address] 41267- 9612 Jun, Stress incontinence of urine N39.3 ; Controlled type 2 diabetes mellitus without complication, without long-term current use of insulin E11.9 and Hypertension, benign I10 [place] [address] 78285- 1216 Jun, [place] [address] 90571- 8124 Jun, [place] [address] 02744- 9380 May, [place] [address] 21158- 0311 May, Viral gastroenteritis A08.4 [place] [address] 28036- 4037 May, Acute diffuse otitis externa of left ear H60.312 and Acquired hypothyroidism E03.9 [place] [address] 04099- 0443 May, Episode of recurrent major depressive disorder, unspecified depression episode severity F33.9 ; Urinary, incontinence, stress female N39.3 ; Mixed hyperlipidemia E78.2 and Hypothyroidism (acquired) E03.9 [place] [address] 16527- 9869 May, [facility] [id number] [place] [address] 29524- 9937 May, Viral gastroenteritis A08.4 [facility] [id number] [place] [address] 81872- 0873 Apr, Acute diffuse otitis externa of left ear H60.312 and Hypothyroidism (acquired) E03.9 [facility] [id number] [place] [address] 60158- 6603 Apr, Viral gastroenteritis A08.4 and Acquired hypothyroidism E03.9 [facility] [id number] [place] [address] 38101- 9151 Apr, Type 2 diabetes mellitus without complications E11.9 and Panlobular emphysema J43.1 [facility] [id number] [place] [address] 14093- 0877 Apr, Viral gastroenteritis A08.4 [facility] [id number] [place] [address] 60724- 4838 March, [facility] [id number] [place] [address] 11258- 5212 March, Viral gastroenteritis A08.4 [facility] [id number] [place] [address] 77515- 1571 Feb, Panlobular emphysema J43.1 [facility] [id number] [place] [address] 09313- 0218 Feb, Panlobular emphysema J43.1 [facility] [id number] [place] [address] 04539- 1658 Feb, [facility] [id number] [place] [address] 75715- 9287 Feb, [facility] [id number] [place] [address] 13588- 7727 Feb, Viral gastroenteritis A08.4 [place] [id number] [place] [address] 83891- 8898 Feb, Head lice B85.0 [place] [id number] [place] [address] 08455- 6119 Feb, Medicare annual wellness visit, initial Z00.00 ; Head lice B85.0 ; Tinea corporis B35.4 and Enlarged lymph node R59.9 [place] [address] 43136- 0159 Jan, Viral gastroenteritis A08.4 [place] [id number] [place] [address] 51667- 0603 Jan, [place] [address] 87166- 4424 Dec, Controlled type 2 diabetes mellitus without complication, without long-term current use of insulin E11.9 [place] [id number] [place] [address] 97434- 1724 Dec, [place] [id number] [place] [address] 66154- 2743 Dec, Viral gastroenteritis A08.4 [place] [id number] [place] [address] 25113- 5041 Nov, Viral gastroenteritis A08.4 [place] [id number] [place] [address] 34537- 7158 Oct, Acute upper respiratory infection, unspecified J06.9 and Other viral agents as the cause of diseases classified elsewhere B97.89 [place] [id number] [place] [address] 51005- 6960 Oct, Viral gastroenteritis A08.4 [place] [id number] [place] [address] 78721- 2090 Oct, Controlled type 2 diabetes mellitus without complication, without long-term current use of insulin E11.9 ; Encounter for immunization Z23 and Acute pain of left foot M79.672 [place] [id number] [place] [address] 03446- 4449 Sep, Viral gastroenteritis A08.4 [facility] [id number] [place] [address] 00944- 2562 Aug, Viral gastroenteritis A08.4 [facility] [id number] [place] [address] 76056- 2452 Jul, Viral gastroenteritis A08.4 [facility] [id number] [place] [address] 61215 -3669 Jul, Acute nasopharyngitis (common cold) J00 [place] [id number] [place] [address] 31888- 6214 Jun, Viral gastroenteritis A08.4 [place] [id number] [place] [address] 88559- 7576 Jun, [place] [id number] [place] [address] 09427- 6098 Jun, Viral gastroenteritis A08.4 [facility] [id number] [place] [address] 29215- 4826 May, Patellar tendinitis, left knee M76.52 [place] [id number] [place] [address] 06815- 0734 May, Viral gastroenteritis A08.4 [place] [id number] [place] [address] 41457- 5581 Apr, Viral gastroenteritis A08.4 and Hypothyroidism, unspecified E03.9 [facility] [id number] [place] [address] 91835- 7042 15 Apr, 2017 Pain in left knee M25.562 ; Acute left-sided low back pain without sciatica M54.5 and Type 2 diabetes mellitus without complications E11.9 [place] [id number] [place] [address] 17081- 4571 Apr, Viral gastroenteritis A08.4 [place] [id number] [place] [address] 40589- 8321 March, Viral gastroenteritis A08.4 [facility] [id number] [place] [address] 30626 -2855 27 Feb, 2017 Acute pain of left knee M25.562 [facility] [id number] [place] [address] 62844- 1183 13 Feb, 2017 Viral gastroenteritis A08.4 [facility] [id number] [place] [address] 03956- 6871 16 Jan, 2017 Viral gastroenteritis A08.4 and Controlled type 2 diabetes mellitus without complication, without long-term current use of insulin E11.9 [place] [id number] [place] [address] 00829- 6784 14 Jan, 2017 [facility] [id number] [place] [address] 72679- 6022 16 Dec, 2016 Other chronic pain G89.29 ; Pain in left knee M25.562 ; Controlled type 2 diabetes mellitus without complication, without long-term current use of insulin E11.9 and Acute cystitis with hematuria N30.01 [place] [id number] [place] [address] 42232- 3737 01 Dec, 2016 [facility] [id number] [place] [address] 45694- 0133 Nov, Type 2 diabetes mellitus without complications E11.9 [facility] [id number] [place] [address] 80719- 3477 04 Nov, 2016 [place] [id number] [place] [address] 10815- 3743 Oct, [place] [id number] [place] [address] 90735- 8121 Sep, [facility] [id number] [place] [address] 68471- 0085 Aug, [facility] [address] 96859- 8841 10 Aug, 2016 [place] [address] 72874- 8059 Jul, Controlled type 2 diabetes mellitus without complication, without long-term current use of insulin E11.9 ; Callus of foot L84 and URI, acute J06.9 [place] [address] 59964- 2672 Jul, [place] [address] 27414- 1300 Jun, Onychomycosis B35.1 and Nail ingrowing L60.0 [place] [address] 22503- 0400 Jun, [place] [address] 82741- 5974 Jun, Lumbar back pain with radiculopathy affecting left lower extremity M54.17 [place] [address] 40201- 7715 Jun, [place] [address] 87296- 4899 Jun, Other chronic pain G89.29 [place] [address] 90840- 1886 Jun, Other chronic pain G89.29 [place] [address] 87186- 2732 Jun, Type 2 diabetes mellitus without complications E11.9 [place] [address] 91970- 2270 Jun, [place] [address] 94856- 4756 Jun, Onychomycosis B35.1 ; Callus L84 and Rash R21 [place] [address] 95078- 0663 May, [facility] [address] [address]- 1672 May, [facility] [id number] [place] [address] 28924- 1285 May, Type 2 diabetes mellitus without complications E11.9 [facility] [id number] [place] [address] 57014- 4188 May, [facility] [id number] [place] [address] 85878- 2774 Apr, [facility] [id number] [place] [address] 33593- 6607 Apr, Type 2 diabetes mellitus without complications E11.9 ; Acquired hypothyroidism E03.9 ; Callus of foot L84 and Upper respiratory tract infection, unspecified type J06.9 [facility] [id number] [place] [address] 35013- 3132 March, [facility] [id number] [place] [address] 37100- 3550 Feb, [facility] [id number] [place] [address] 44254- 1463 Jan, Diabetes mellitus without mention of complication, type II or unspecified type, not stated as uncontrolled 250.00 [facility] [address] [address]- 1053 Jan, [facility] [id number] [place] [address] 10997- 0863 Jan, Diabetes E11.9 and Hypothyroidism E03.9 [facility] [id number] [place] [address] 05195- 2171 Dec, Diarrhea R19.7 [facility] [address] [address]- 9220 Dec, [facility] [id number] [place] [address] 89198- 2280 Dec, Hypothyroidism, unspecified E03.9 [facility] [id number] [place] [address] 89373- 7169 Dec, [facility] [id number] [place] [address] 20357- 7926 Dec, Hypothyroidism, unspecified E03.9 [facility] [id number] [place] [address] 71285- 6207 04 Dec, 2015 Diarrhea R19.7 [facility] [id number] [place] [address] 610134- 5841 Dec, Diarrhea R19.7 [facility] [id number] [place] [address] 98192- 0778 Nov, [facility] [id number] [place] [address] 85556- 4664 Nov, [facility] [id number] [place] [address] 02188- 7304 Oct, [facility] [id number] [place] [address] 74110- 3773 Sep, Postnasal drip R09.82 [facility] [id number] [place] [address] 96296- 8210 Sep, [facility] [id number] [place] [address] 02292- 9028 Sep, [facility] [id number] [place] [address] 16388- 1682 Aug, [facility] [id number] [place] [address] 01174- 4154 Aug, [facility] [id number] [place] [address] 98148- 3466 Jul, Hypothyroidism 244.9 [facility] [id number] [place] [address] 55950- 2022 Jul, Diabetes mellitus without mention of complication, type II or unspecified type, not stated as uncontrolled 250.00 [facility] [address] [address]- 1442 14 Jul, 2015 [facility] [id number] [place] [address] 79840- 3239 14 Jul, 2015 [facility] [id number] [place] [address] 93261- 2720 Jun, [facility] [id number] [place] [address] 67389- 3539 May, Other chronic pain 338.29 [facility] [id number] [place] [address] 682136- 4760 10 May, 2015 Other chronic pain 338.29 [facility] [id number] [place] [address] 58188- 2773 09 May, 2015 [facility] [id number] [place] [address] 10878- 3494 May, [facility] [id number] [place] [address] 08765- 7330 Apr, Rash 782.1 ; Hypercholesterolemia 272.0 and Hypothyroidism 244.9 [facility] [id number] [address]- 6952 Apr, [facility] [id number] [place] [address] 57041- 5337 Apr, [facility] [id number] [address]- 5080 March, [facility] [id number] [place] [address] 34972- 2469 Feb, [facility] [id number] [place] [address] 70805- 8963 Feb, [facility] [address] [address]- 7017 Jan, [facility] [place] [facility] [address] [id number] [place] [address]- 5210 Jan, [facility] [place] [facility] [address] [id number] [place] [address]- 9065 Jan, [facility] [place] [facility] [address] [id number] [place] [address]- 1656 Jan, [facility] [place] [facility] [address] [id number] [place] [address]- 6779 Jan, [facility] [place] [facility] [address] [id number] [place] [address]- 5221 Jan, [facility] [place] [facility] [address] [id number] [place] [address]- 0340 Jan, [facility] [place] [facility] [address] [id number] [place] [address]- 6612 16 Dec, 2014 [facility] [place] [facility] [address] [id number] [place] [address]- 5536 Dec, [facility] [place] [facility] [address] [id number] [place] [address]- 9816 Nov, [facility] [place] [facility] [address] [id number] [place] [address]- 3670 Nov, [facility] [place] [facility] [address] [id number] [place] [address]- 5034 Nov, [facility] [place] [facility] [address] [id number] [place] [address]- 8217 Nov, [facility] [place] [facility] [address] [id number] [place] [address]- 7977 Nov, [facility] [place] [facility] [address] [id number] [place] [address]- 9247 Nov, [facility] [place] [facility] [address] [id number] [place] [address]- 4448 15 Oct, 2014 [facility] [place] [facility] [address] [id number] [place] [address]- 3208 Oct, [facility] [place] [facility] [address] [id number] [place] 6567 Sep, [facility] [place] [facility] [address] [id number] [place] [address]- 9348 Sep, [facility] [place] [facility] [address] [id number] [place] [address]- 2308 Sep, [facility] [place] [facility] [address] [id number] [place] [address]- 0822 Sep, [facility] [place] [facility] [address] [id number] [place] [address]- 1179 Aug, [facility] [place] [facility] [address] [id number] [place] [address]- 0309 Aug, [facility] [place] [facility] [address] [id number] [place] [address]- 9691 Jul, [facility] [place] [facility] [address] [id number] [place] [address]- 4349 Jul, [facility] [place] [facility] [address] [id number] [place] [address]- 9286 Jun, [facility] [place] [facility] [address] [id number] [place] [address]- 5724 Jun, [facility] [place] [facility] [address] [id number] [place] [address]- 5735 Jun, [facility] [place] [facility] [address] [id number] [address]- 4222 Jun, [facility] [place] [facility] [address] [id number] [place] [address]- 2915 May, [facility] [place] [facility] [address] [id number] [place] [address]- 5368 May, [facility] [place] [facility] [address] [id number] [place] [address]- 3978 May, [facility] [place] [facility] [address] [id number] [place] [address]- 0185 May, [facility] [place] [facility] [address] [id number] [place] [address]- 2093 Apr, [facility] [place] [facility] [address] [id number] [place] [address]- 5120 Apr, [facility] [place] [facility] [address] [id number] [place] [address]- 4843 March, [facility] [place] [facility] [address] [id number] [place] [address]- 5638 March, [facility] [place] [facility] [address] [id number] [place] [address]- 5621 March, [facility] [place] [facility] [address] [id number] [place] [address]- 0758 March, [facility] [place] [facility] [address] [id number] [place] [address]- 3860 March, [facility] [place] [facility] [address] [id number] [place] [address]- 5239 March, [facility] [place] [facility] [address] [id number] [place] [address]- 1012 Feb, [facility] [place] [facility] [address] [id number] [place] [address]- 5407 Feb, [facility] [place] [facility] [address] [id number] [place] [address]- 8849 Feb, [facility] [place] [facility] [address] [id number] [place] [address]- 3621 Feb, [facility] [place] [facility] [address] [id number] [place] [address]- 9093 Feb, [facility] [place] [facility] [address] [id number] [place] [address]- 2592 Feb, [facility] [place] [facility] [address] [id number] [place] [address]- 9307 Feb, [facility] [place] [facility] [address] [id number] [place] [address]- 0949 Feb, [facility] [place] [facility] [address] [id number] [place] [address]- 0433 Jan, [facility] [place] [facility] [address] [id number] [place] [address]- 2526 Jan, [facility] [place] [facility] [address] [id number] [place] [address]- 6162 Jan, [facility] [place] [facility] [address] [id number] [place] [address]- 1263 Jan, [facility] [place] [facility] [address] [id number] [place] [address] Jan, [facility] [place] [facility] [address] [id number] [place] [address] Jan, [facility] [place] [facility] [address] [id number] [place] [address] Jan, [facility] [place] [facility] [address] [id number] [place] [address] Jan, [facility] [place] [facility] [address] [id number] [place] [address] Jan, [facility] [place] [facility] [address] [id number] [place] [address] Dec, [facility] [place] [facility] [address] [id number] [place] [address] Dec, [facility] [place] [facility] [address] [id number] [place] [address] Nov, [facility] [place] [facility] [address] [id number] [place] [address] Nov, [facility] [place] [facility] [address] [id number] [place] [address] Nov, [facility] [place] [facility] [address] [id number] [address] Nov, [facility] [address] [id number] [place] [address] Nov, [facility] [place] [facility] [address] [id number] [place] [address] Nov, [facility] [place] [facility] [address] [facility] [id number] [place] [address] Oct, [facility] [place] [facility] [address] [id number] [place] [address] Oct, [facility] [place] [facility] [address] [id number] [place] [address] Sep, [facility] [place] [facility] [address] [id number] [place] [address] Sep, [facility] [place] [facility] [address] [facility] [id number], [place] [address] Sep, [facility] [place] [facility] [address] [id number] [place] [address] Sep, [facility] [place] [facility] [address] [facility] [id number], [place] [address] Sep, [facility] [place] [facility] [address] [facility] [id number], [place] [address] Sep, [facility] [place] [facility] [address] [facility] [id number], [place] [address] Sep, [facility] [place] [facility] [address] [id number], [place] [address] Sep, [facility] [place] [facility] [address] [id number], [place] [address] Aug, [facility] [place] [facility] [address] [id number] [place] [address] Aug, [facility] [place] [facility] [address] [facility] [id number], [place] [address] Aug, [facility] [place] [facility] [address] [id number] [place] [address] 17 Jul, 2013 [facility] [place] [facility] [address] [id number] [place] [address] Jul, [facility] [place] [facility] [address] [id number] [place] [address] Jul, [facility] [place] [facility] [address] [id number] [place] [address] Jun, [facility] [place] [facility] [address] [id number] [place] [address] Jun, [facility] [place] [facility] [address] [id number] [place] [address] Jun[facility] [place] [facility] [address] [id number] [place] [address] Jun, [facility] [place] [facility] [address] [id number] [place] [address] Jun, [facility] [place] [facility] [address] [id number] [place] [address] Jun, [facility] [place] [facility] [address] [id number] [place] [address] May, [facility] [place] [facility] [address] [id number] [place] [address] May, [facility] [place] [facility] [address] [id number] [place] [address] Apr, [facility] [place] [facility] [address] [id number] [place] [address] Apr, [facility] [place] [facility] [address] [id number] [place] [address] March, [facility] [place] [facility] [address] [id number] [place] [address] Feb, [facility] [place] [facility] [address] [id number] [place] [address] 17 Feb, 2013 [facility] [address] [id number] [place] [address] 16 Feb, 2013 [facility] [place] [facility] [address] [id number] [place] [address] Feb, [facility] [address] [id number] [place] [address] Jan, [facility] [place] [facility] [address] [id number] [place] [address] 1993 Jan, [facility] [address] [id number] [place] [address] Jan, [facility] [address] [id number] [place] [address] Jan, [facility] [address] [id number] [place] [address] Jan, [facility] [place] [facility] [address] [id number] [place] [address] Dec, [facility] [address] [id number] [place] [address] Nov, [facility] [address] [id number] [place] [address] Nov, [facility] [address] [id number] [place] [address] Oct, [facility] [place] [facility] [address] [id number] [place] [address] Oct, [facility] [place] [facility] [address] [id number] [place] [address] Oct, [facility] [place] [facility] [address] [id number] [place] [address] 1987 Oct, [facility] [place] [facility] [address] [id number] [place] [address] Oct, [facility] [place] [facility] [address] [id number] [place] [address]- 48[address] Oct, [facility] [place] [facility] [address] [id number] [place] [address] Oct, [facility] [place] [facility] [address] [id number] [place] [address] Oct, [facility] [place] [facility] [address] [id number] [place] [address] 30 Aug, 2012 [facility] [place] [facility] [address] [id number] [place] [address] 30 Aug, 2012 [facility] [place] [facility] [address] [id number] [place] [address] Aug, [facility] [place] [facility] [address] [id number] [place] [address]85 Aug, [facility] [place] [facility] [address] [facility] [id number] [place] [address] Aug, [facility] [place] [facility] [address] [id number] [place] [address] Aug, [facility] [place] [facility] [address] [id number] [place] [address]- [address] 15 Aug, 2012 [facility] [place] [facility] [address] [facility] [id number] [place] [address] 27 Jul, 2012 [facility] [place] [facility] [address] [id number] [place] [address]46 27 Jul, 2012 [facility] [place] [facility] [address] [id number] [place] [address]45 27 Jul, 2011 [facility] [place] [facility] [address] [id number] [place] [address]686 27 Jul, 2012 [facility] [place] [facility] [address] [facility] [id number] [place] [address] 03 Jul, 2011 [facility] [place] [facility] [address] [id number] [place] [address] 120[address] Jun, [facility] [place] [facility] [address] [id number] [place] [address]26 Jun, [facility] [place] [facility] [address] [id number] [place] [address] 37[address] Jun, [facility] [place] [facility] [address] [id number] [place] [address] 15[address] May, [facility] [place] [facility] [address] [id number] [place] [address]16 May, [facility] [address] [id number] [place] [address] May, [facility] [place] [facility] [address] [id number] [place] [address] May, [facility] [address] [id number] [place] [address]- 7063 May, [facility] [place] [facility] [address] [id number] [place] [address] 45[address] May, [facility] [place] [facility] [address] [id number] [place] [address] May, [facility] [place] [facility] [address] [id number] [place] [address]- 1027 Apr, [facility] [place] [facility] [address] [id number] [place] [address]99 Apr, [facility] [place] [facility] [address] [id number] [place] [address] March, [facility] [place] [facility] [address] [id number] [place] [address] 355[address] Feb, [facility] [place] [facility] [address] [id number] [place] [address] 8648 Jan, [facility] [place] [facility] [address] [id number] [place] [address]- 6676 Jan, [facility] [place] [facility] [address] [id number] [place] [address]- [address]36 28 Jan, 2012 [facility] [place] [facility] [address] [id number] [place] [address]- 6356 Jan, [facility] [place] [facility] [address] [id number] [place] [address]- 1006 Jan, [facility] [place] [facility] [address] [id number] [place] [address]- 5686 Jan, [facility] [place] [facility] [address] [id number] [place] [address]- 0224 Jan, [facility] [place] [facility] [address] [id number] [place] [address]- 2942 Jan, [facility] [place] [facility] [address] [id number] [place] [address] 6037 Jan, [facility] [place] [facility] [address] [facility] [id number] [place] [address]- 6565 Jan, [facility] [place] [facility] [address] [id number] [place] [address]- 5648 Dec, [facility] [place] [facility] [address] [id number] [place] [address]- 9706 Dec, [facility] [place] [facility] [address] [facility] [id number] [place] [address]- 8926 Dec, [facility] [place] [facility] [address] [id number] [place] [address]- 9796 Dec, [facility] [place] [facility] [address] [id number] [place] [address]- 2546 Dec, [facility] [place] [facility] [address] [id number] [place] [address]- 1506 17 Dec, 2011 [facility] [place] [facility] [address] [id number] [place] [address] Dec, [facility] [place] [facility] [address] [facility] [id number] [place] [address]- 3768 Dec, [facility] [address] [id number] [address] Nov, [facility] [id number] [address] Nov, [facility] [id number] [address] Nov, [facility] [id number] [place] [address]- [address]46 Oct, [facility] [id number] [place] [address]- [address] Oct, [facility] [id number] [place] [address]- 2546 Oct, [facility] [id number] [address] Oct, [facility] [id number] [address] Sep, IMMUNIZATIONS No Known Immunizations SOCIAL HISTORY Never Assessed REASON FOR VISIT Controlled Med Refill 11/03/18 PLAN OF CARE VITAL SIGNS MEDICATIONS Medication Instructions Dosage Frequency Start Date End Date Duration Status Hewitt 10-325 MG Orally every 6 hrs 1 tablet as needed 6h Oct, 28 days Active RESULTS No Results PROCEDURES No Known procedures INSTRUCTIONS MEDICATIONS ADMINISTERED No Known Medications MEDICAL [...] intraocular lens prosthesis Hospitalization History admitted to [facility] for bronchitis then went into cardiac arrest and was resuscitated. She was in the hospital for 7 days. 2012 Hospitalization History surgeries
--- OUTSIDE RECORDS SUMMARY | 2019-01-07 23:46 | XMS REPORT ---
Author Author NALINI GOMEZ Organization [facility] Address [address] [place] [address] Care Team Providers Care Park Aide Name Role Phone NALINI GOMEZ Unavailable PROBLEMS Type Condition ICD9-CM Code CFC46-JK Code Onset Dates Condition Status SNOMED Code Problem Hypothyroidism, unspecified E03.9 Active 95626011 Problem Hypothyroidism (acquired) E03.9 Active 72998551 Problem Acquired hypothyroidism E03.9 Active 424156845 Problem Other chronic pain G89.29 Active 50763977 Problem Hypertension, benign I10 Active 10462393 Problem Episode of recurrent major depressive disorder, unspecified depression episode severity F33.9 Active 019518536 Problem Mixed hyperlipidemia E78.2 Active 260294202 Problem Stress incontinence of urine N39.3 Active 75498218 Problem Urinary, incontinence, stress female N39.3 Active 55642201 Problem Hypercholesterolemia 272.0 Active 22100920 Problem Type 2 diabetes mellitus without complications E11.9 Active 490803174 Problem Other chronic pain G89.29 Active 45394522 Problem Panlobular emphysema J43.1 Active 4176494 Problem Controlled type 2 diabetes mellitus without complication, without long -term current use of insulin E11.9 Active 360441552 ALLERGIES No Information ENCOUNTERS Encounter Location Date Diagnosis [place] [id number] [address] Sep, Stress incontinence of urine N39.3 [facility] [id number] [address] 3573 Aug, Stress incontinence of urine N39.3 [facility] [id number] [place] [address] 84108- 1932 Jul, Stress incontinence of urine N39.3 [facility] [id number] [address] Jun, [place] [id number] [place] [address] 97299- 0913 Jun, Other chronic pain G89.29 [place] [address] 80249- 2188 Jun, Other chronic pain G89.29 [place] [address] 39277- 5336 Jun, Stress incontinence of urine N39.3 ; Controlled type 2 diabetes mellitus without complication, without long-term current use of insulin E11.9 and Hypertension, benign I10 [place] [address] 45544- 6311 Jun, [place] [address] 14679- 9227 Jun, [place] [address] 22210- 1261 May, [place] [address] 75827- 5572 May, Viral gastroenteritis A08.4 [place] [address] 62862- 8655 May, Acute diffuse otitis externa of left ear H60.312 and Acquired hypothyroidism E03.9 [place] [id number] [place] [address] 21780- 2032 May, Episode of recurrent major depressive disorder, unspecified depression episode severity F33.9 ; Urinary, incontinence, stress female N39.3 ; Mixed hyperlipidemia E78.2 and Hypothyroidism (acquired) E03.9 [place] [id number] [place] [address] 37112- 9705 May, [place] [address] 56393- 2512 May, Viral gastroenteritis A08.4 [place] [address] 63320- 8398 Apr, Acute diffuse otitis externa of left ear H60.312 and Hypothyroidism (acquired) E03.9 [facility] [address] 26605- 8432 11 Apr, 2018 Viral gastroenteritis A08.4 and Acquired hypothyroidism E03.9 [facility] [address] 92063- 3081 Apr, Type 2 diabetes mellitus without complications E11.9 and Panlobular emphysema J43.1 [facility] [address] 38997- 4314 Apr, Viral gastroenteritis A08.4 [place] [address] 95201- 1968 March, [facility] [address] 12519- 4350 March, Viral gastroenteritis A08.4 [facility] [address] 98017- 6066 Feb, Panlobular emphysema J43.1 [facility] [address] 83701- 1489 Feb, Panlobular emphysema J43.1 [facility] [address] 38276- 4900 Feb, [facility] [address] 69938- 0684 Feb, [facility] [id number] [place] [address] 14634- 4150 Feb, Viral gastroenteritis A08.4 [facility] [address] 54472- 3332 Feb, Head lice B85.0 [place] [address] 58524- 7877 Feb, Medicare annual wellness visit, initial Z00.00 ; Head lice B85.0 ; Tinea corporis B35.4 and Enlarged lymph node R59.9 [place] [id number] [place] [address] 89705- 5330 Jan, Viral gastroenteritis A08.4 [place] [id number] [place] [address] 56385- 4041 Jan, [place] [address] 76514- 7758 Dec, Controlled type 2 diabetes mellitus without complication, without long-term current use of insulin E11.9 [place] [address] 27021- 9221 Dec, [place] [address] 66021- 2326 Dec, Viral gastroenteritis A08.4 [place] [address] 16616- 7618 Nov, Viral gastroenteritis A08.4 [place] [id number] [place] [address] 15621- 5817 Oct, Acute upper respiratory infection, unspecified J06.9 and Other viral agents as the cause of diseases classified elsewhere B97.89 [place] [id number] [place] [address] 41392- 8991 Oct, Viral gastroenteritis A08.4 [place] [id number] [place] [address] 49948- 5652 Oct, Controlled type 2 diabetes mellitus without complication, without long-term current use of insulin E11.9 ; Encounter for immunization Z23 and Acute pain of left foot M79.672 [place] [address] 61796- 1022 Sep, Viral gastroenteritis A08.4 [place] [id number] [place] [address] 70693- 1745 Aug, Viral gastroenteritis A08.4 [place] [id number] [place] [address] 29901- 3892 Jul, Viral gastroenteritis A08.4 [facility] [id number] [place] [address] 97965 -6019 Jul, Acute nasopharyngitis (common cold) J00 [facility] [id number] [place] [address] 17061- 8532 Jun, Viral gastroenteritis A08.4 [facility] [id number] [place] [address] 12020- 3972 Jun, [place] [id number] [place] [address] 29610- 6794 Jun, Viral gastroenteritis A08.4 [place] [id number] [place] [address] 28349- 5007 May, Patellar tendinitis, left knee M76.52 [place] [id number] [place] [address] 22840- 0522 May, Viral gastroenteritis A08.4 [place] [id number] [place] [address] 61797- 5401 Apr, Viral gastroenteritis A08.4 and Hypothyroidism, unspecified E03.9 [place] [id number] [place] [address] 01652- 9710 15 Apr, 2017 Pain in left knee M25.562 ; Acute left-sided low back pain without sciatica M54.5 and Type 2 diabetes mellitus without complications E11.9 [facility] [id number] [place] [address] 73718- 0656 Apr, Viral gastroenteritis A08.4 [place] [id number] [place] [address] 30822- 9558 March, Viral gastroenteritis A08.4 [facility] [id number] [place] [address] 17066 -3361 Feb, Acute pain of left knee M25.562 [place] [id number] [place] [address] 28884- 4891 13 Feb, 2017 Viral gastroenteritis A08.4 [place] [address] 86423- 9366 16 Jan, 2017 Viral gastroenteritis A08.4 and Controlled type 2 diabetes mellitus without complication, without long-term current use of insulin E11.9 [place] [address] 36818- 8021 14 Jan, 2017 [place] [id number] [place] [address] 27830- 7961 16 Dec, 2016 Other chronic pain G89.29 ; Pain in left knee M25.562 ; Controlled type 2 diabetes mellitus without complication, without long-term current use of insulin E11.9 and Acute cystitis with hematuria N30.01 [place] [id number] [place] [address] 90076- 2816 01 Dec, 2016 [place] [id number] [place] [address] 73691- 5130 06 Nov, 2016 Type 2 diabetes mellitus without complications E11.9 [place] [id number] [place] [address] 48597- 3135 04 Nov, 2016 [place] [id number] [place] [address] 68599- 4727 07 Oct, 2016 [place] [id number] [place] [address] 05649- 0556 Sep, [place] [id number] [place] [address] 26663- 2540 11 Aug, 2016 [place] [address] 85335- 9592 Aug, [place] [id number] [place] [address] 48499- 8719 20 Jul, 2016 Controlled type 2 diabetes mellitus without complication, without long-term current use of insulin E11.9 ; Callus of foot L84 and URI, acute J06.9 [facility] [id number] [place] [address] 54951- 8715 Jul, [facility] [id number] [place] [address] 50317- 6025 Jun, Onychomycosis B35.1 and Nail ingrowing L60.0 [place] [address] 90349- 5736 Jun, [facility] [address] 39059 2549 Jun, Lumbar back pain with radiculopathy affecting left lower extremity M54.17 [place] [address] 64058- 0262 Jun, [place] [address] 78860- 1432 Jun, Other chronic pain G89.29 [place] [address] 71332 2549 Jun, Other chronic pain G89.29 [place] [id number] [place] [address] 31472- 8533 Jun, Type 2 diabetes mellitus without complications E11.9 [place] [id number] [place] [address] 05684 2546 Jun, [facility] [id number] [place] [address] 22596 2548 Jun, Onychomycosis B35.1 ; Callus L84 and Rash R21 [facility] [id number] [place] [address] 32204 2546 May, [facility] [id number] [place] [address] 04144 2542 May, [facility] [id number] [place] [address] 63172- 9947 May, Type 2 diabetes mellitus without complications E11.9 [facility] [address] [address]- 8410 14 May, 2016 [facility] [id number] [place] [address] 77940- 9413 Apr, [facility] [id number] [address]- 1439 Apr, Type 2 diabetes mellitus without complications E11.9 ; Acquired hypothyroidism E03.9 ; Callus of foot L84 and Upper respiratory tract infection, unspecified type J06.9 [facility] [id number] [place] [address] 13326- 2287 March, [facility] [id number] [place] [address] 94790- 6880 Feb, [facility] [id number] [place] [address] 35824- 4839 Jan, Diabetes mellitus without mention of complication, type II or unspecified type, not stated as uncontrolled 250.00 [facility] [id number] [place] [address] 66349- 9313 Jan, [facility] [id number] [place] [address] 14044- 2657 Jan, Diabetes E11.9 and Hypothyroidism E03.9 [facility] [address] [address]- 4238 Dec, Diarrhea R19.7 [facility] [address] [address]- 4108 Dec, [facility] [address] [address]- 5549 Dec, Hypothyroidism, unspecified E03.9 [facility] [address] [address]- 7147 Dec, [facility] [address] [place] [address] 63943- 0503 Dec, Hypothyroidism, unspecified E03.9 [facility] [id number] [place] [address] 33087- 4474 04 Dec, 2015 Diarrhea R19.7 [facility] [id number] [place] [address] 59091- 0676 Dec, Diarrhea R19.7 [facility] [id number] [place] [address] 54459- 2674 Nov, [facility] [id number] [place] [address] 37726- 0024 Nov, [facility] [address] 80958- 0657 Oct, [facility] [id number] [place] [address] 42171- 0927 Sep, Postnasal drip R09.82 [facility] [id number] [place] [address] 74482- 2436 Sep, [facility] [id number] [place] [address] 54249- 3771 Sep, [facility] [id number] [place] [address] 89187- 7921 Aug, [facility] [id number] [place] [address] 46687- 3185 Aug, [facility] [id number] [place] [address] 35985- 3472 Jul, Hypothyroidism 244.9 [facility] [id number] [place] [address] 27834- 6804 Jul, Diabetes mellitus without mention of complication, type II or unspecified type, not stated as uncontrolled 250.00 [facility] [id number] [place] [address] 69791- 5059 14 Jul, 2015 [facility] [id number] [place] [address] 33009- 5072 Jul, [facility] [address] [address]- 30[address] Jun, [facility] [id number] [place] [address] 68902- 0176 May, Other chronic pain 338.29 [facility] [id number] [place] [address] 81195- 5068 10 May, 2015 Other chronic pain 338.29 [facility] [id number] [place] [address] 27542- 6218 09 May, 2015 [facility] [id number] [place] [address] 84539- 3333 May, [facility] [id number] [place] [address] 08835- 0628 Apr, Rash 782.1 ; Hypercholesterolemia 272.0 and Hypothyroidism 244.9 [facility] [id number] [place] [address] 47815- 3379 Apr, [facility] [id number] [place] [address] 31220- 3039 Apr, [facility] [id number] [place] [address] 41483- 1802 March, [facility] [address] [place] [address] 77486- 7508 Feb, [facility] [address] [place] [address] 22124- 3502 Feb, [facility] [address] [address]- 0885 Jan, [facility] [id number] [place] [address] 29890- 3718 Jan, [facility] [address] [address]- 5319 Jan, [facility] [id number] [place] [address] 48005- 8826 13 Jan, 2015 [facility] [place] [facility] [address] [id number] [place] [address]- 6725 13 Jan, 2015 [facility] [place] [facility] [address] [id number] [place] [address]- 8365 11 Jan, 2015 [facility] [place] [facility] [address] [id number] [place] [address]- 2491 Jan, [facility] [place] [facility] [address] [id number] [place] [address]- 7618 Dec, [facility] [place] [facility] [address] [id number] [place] [address]- 9816 Dec, [facility] [place] [facility] [address] [id number] [place] [address]- 9479 Nov, [facility] [place] [facility] [address] [id number] [place] [address]- 2355 Nov, [facility] [place] [facility] [address] [id number] [place] [address]- 1652 Nov, [facility] [place] [facility] [address] [id number] [place] [address]- 3781 Nov, [facility] [place] [facility] [address] [id number] [place] [address]- 4488 Nov, [facility] [place] [facility] [address] [id number] [address]- 6319 Nov, [facility] [place] [facility] [address] [id number] [place] [address]- 8709 Oct, [facility] [place] [facility] [address] [id number] [place] [address]- 6538 Oct, [facility] [place] [facility] [address] [id number] [place] [address]- 6218 Sep, [facility] [place] [facility] [address] [id number] [place] [address]- 5455 Sep, [facility] [place] [facility] [address] [id number] [place] [address]- 4018 Sep, [facility] [place] [facility] [address] [id number] [place] [address]- 7484 Sep, [facility] [place] [facility] [address] [id number] [place] [address]- 1282 Aug, [facility] [place] [facility] [address] [id number] [place] [address]- 3811 Aug, [facility] [place] [facility] [address] [id number] [place] [address]- 5327 Jul, [facility] [place] [facility] [address] [id number] [place] 1739 Jul, [facility] [place] [facility] [address] [id number] [place] [address]- 3832 Jun, [facility] [place] [facility] [address] [id number] [place] [address]- 0265 Jun, [facility] [place] [facility] [address] [id number] [place] [address]- 5472 Jun, [facility] [place] [facility] [address] [id number] [place] [address]- 0277 Jun, [facility] [place] [facility] [address] [id number] [place] [address]- 1517 May, [facility] [place] [facility] [address] [id number] [place] [address]- 1662 May, [facility] [place] [facility] [address] [id number] [place] [address]- 5077 May, [facility] [place] [facility] [address] [id number] [place] [address]- 6467 May, [facility] [place] [facility] [address] [id number] [place] [address]- 7922 Apr, [facility] [place] [facility] [address] [id number] [place] 9046 Apr, [facility] [place] [facility] [address] [id number] [place] [address]- 9359 March, [facility] [place] [facility] [address] [id number] [place] [address]- 7422 March, [facility] [place] [facility] [address] [id number] [place] [address]- 5934 March, [facility] [place] [facility] [address] [id number] [place] [address]- 6056 March, [facility] [place] [facility] [address] [id number] [place] [address]- 2179 March, [facility] [place] [facility] [address] [id number] [place] [address]- 2327 March, [facility] [place] [facility] [address] [id number] [place] [address]- 3009 Feb, [facility] [place] [facility] [address] [id number] [place] [address]- 5455 Feb, [facility] [place] [facility] [address] [id number] [place] [address]- 6820 Feb, [facility] [place] [facility] [address] [id number] [place] [address]- 3414 Feb, [facility] [place] [facility] [address] [id number] [place] [address]- 5457 Feb, [facility] [place] [facility] [address] [id number] [place] [address]- 5279 Feb, [facility] [place] [facility] [address] [id number] [place] [address]- 8456 Feb, [facility] [place] [facility] [address] [id number] [place] [address]- 9963 Feb, [facility] [place] [facility] [address] [id number] [place] [address]- 8192 Jan, [facility] [place] [facility] [address] [id number] [place] [address]- 0386 Jan, [facility] [place] [facility] [address] [id number] [place] [address]- 7682 Jan, [facility] [place] [facility] [address] [id number] [place] [address]- 3555 Jan, [facility] [place] [facility] [address] [id number] [place] [address]- 6376 Jan, [facility] [place] [facility] [address] [id number] [place] [address]- 0235 Jan, [facility] [place] [facility] [address] [id number] [place] [address]- 3580 Jan, [facility] [place] [facility] [address] [id number] [place] [address]- 0914 Jan, [facility] [place] [facility] [address] [id number] [place] [address]- 8140 Jan, [facility] [place] [facility] [address] [id number] [place] [address]- 2553 Dec, [facility] [place] [facility] [address] [id number] [place] [address]- 9336 Dec, [facility] [place] [facility] [address] [id number] [place] [address]- 6015 Nov, [facility] [place] [facility] [address] [id number] [place] [address] Nov, [facility] [place] [facility] [address] [id number] [place] [address] Nov, [facility] [place] [facility] [address] [id number] [place] [address] Nov, [facility] [place] [facility] [address] [id number] [place] [address] Nov, [facility] [place] [facility] [address] [id number] [place] [address] Nov, [facility] [place] [facility] [address] [id number] [place] [address] Oct, [facility] [place] [facility] [address] [id number] [place] [address] Oct, [facility] [place] [facility] [address] [id number] [place] [address] Sep, [facility] [place] [facility] [address] [id number] [place] [address] Sep, [facility] [place] [facility] [address] [id number] [place] [address] Sep, [facility] [place] [facility] [address] [id number] [place] [address] Sep, [facility] [place] [facility] [address] [id number] [place] [address] Sep, [facility] [place] [facility] [address] [id number] [place] [address] Sep, [facility] [place] [facility] [address] [id number] [place] [address] Sep, [facility] [place] [facility] [address] [id number] [place] [address] Sep, [facility] [place] [facility] [address] [id number] [place] [address] Aug, [facility] [place] [facility] [address] [id number] [place] [address] Aug, [facility] [place] [facility] [address] [id number] [place] [address] Aug, [facility] [place] [facility] [address] [id number] [place] [address] Jul, [facility] [place] [facility] [address] [id number] [place] [address] Jul, [facility] [place] [facility] [address] [id number] [place] [address] Jul, [facility] [address] [id number] [place] [address] Jun, [facility] [place] [facility] [address] [id number] [place] [address] Jun, [facility] [place] [facility] [address] [id number] [place] [address] 1989 Jun, [facility] [place] [facility] [address] [id number] [place] [address] Jun, [facility] [place] [facility] [address] [id number] [place] [address] Jun, [facility] [place] [facility] [address] [id number] [place] [address] Jun, [facility] [place] [facility] [address] [id number] [place] [address] May, [facility] [place] [facility] [address] [id number] [place] [address] May, [facility] [place] [facility] [address] [id number] [place] [address] Apr, [facility] [place] [facility] [address] [id number] [place] [address] Apr, [facility] [place] [facility] [address] [id number] [place] [address] March, [facility] [place] [facility] [address] [id number] [place] [address] Feb, [facility] [place] [facility] [address] [id number] [place] [address] Feb, [facility] [place] [facility] [address] [id number] [place] [address] 16 Feb, 2013 [facility] [place] [facility] [address] [id number] [place] [address] Feb, [facility] [place] [facility] [address] [id number] [place] [address] 26 Jan, 2013 [facility] [address] [id number] [place] [address] 26 Jan, 2013 [facility] [address] [id number] [place] [address] 22 Jan, 2013 [facility] [address] [id number] [place] [address] 19 Jan, 2013 [facility] [address] [id number] [place] [address] 05 Jan, 2013 [facility] [address] [id number] [place] [address] 04 Dec, 2012 [facility] [address] [id number] [place] [address] Nov, [facility] [address] [id number] [place] [address] Nov, [facility] [address] [id number] [place] [address] Oct, [facility] [address] [id number] [place] [address] Oct, [facility] [address] [id number] [place] [address] Oct, [facility] [address] [id number] [place] [address] Oct, [facility] [address] [id number] [place] [address] Oct, [facility] [address] [id number] [place] [address] Oct, [facility] [address] [id number] [place] [address] Oct, [facility] [address] [id number] [place] [address] 74[address] Oct, [facility] [place] [facility] [address] [id number] [place] [address] 30 Aug, 2012 [facility] [place] [facility] [address] [id number] [place] [address] 30 Aug, 2012 [facility] [place] [facility] [address] [id number] [place] [address] Aug, [facility] [place] [facility] [address] [id number] [place] [address] Aug, [facility] [place] [facility] [address] [id number] [place] [address] 39[address] Aug, [facility] [place] [facility] [address] [id number] [place] [address] 3695 Aug, [facility] [place] [facility] [address] [id number] [place] [address]177 15 Aug, 2012 [facility] [place] [facility] [address] [id number] [address] 27 Jul, 2012 [facility] [place] [facility] [address] [id number] [place] [address] 287[address] 27 Jul, 2012 [facility] [place] [facility] [address] [id number] [address] 27 Jul, 2012 [facility] [place] [facility] [address] [id number] [place] [address] 27 Jul, 2012 [facility] [place] [facility] [address] [id number] [place] [address] 03 Jul, 2012 [facility] [place] [facility] [address] [id number] [place] [address] 28 Jun, 2012 [facility] [place] [facility] [address] [id number] [place] [address] Jun, [facility] [place] [facility] [address] [facility] [id number] [place] [address] 17 Jun, 2012 [facility] [place] [facility] [address] [id number] [place] [address] May, [facility] [place] [facility] [address] [id number] [place] [address] 17[address] May, [facility] [place] [facility] [address] [id number] [place] [address] 9066 May, [facility] [place] [facility] [address] [id number] [place] [address] 76[address] May, [facility] [place] [facility] [address] [id number] [place] [address] May, [facility] [place] [facility] [address] [id number] [place] [address] 4038 May, [facility] [place] [facility] [address] [id number] [place] [address] 7151 May, [facility] [address] [id number] [place] [address] Apr, [facility] [place] [facility] [address] [id number] [place] [address] 8893 Apr, [facility] [place] [facility] [address] [id number] [place] [address] March, [facility] [place] [facility] [address] [id number] [place] [address] 9[address] Feb, [facility] [place] [facility] [address] [id number] [place] [address] 5918 30 Jan, 2012 [facility] [place] [facility] [address] [id number] [place] [address] 4636 Jan, [facility] [place] [facility] [address] [id number] [place] [address] 3643 Jan, [facility] [place] [facility] [address] [id number] [place] [address] 0028 Jan, [facility] [place] [facility] [address] [id number] [place] [address]- 2560 Jan, [facility] [place] [facility] [address] [id number] [place] [address] 98[address] 28 Jan, 2012 [facility] [place] [facility] [address] [id number] [place] [address] 8366 Jan, [facility] [place] [facility] [address] [id number] [place] [address] 2546 Jan, [facility] [place] [facility] [address] [id number] [place] [address] 2546 Jan, [facility] [place] [facility] [address] [id number] [place] [address]- 9564 Jan, [facility] [place] [facility] [address] [id number] [place] [address] 6206 Dec, [facility] [place] [facility] [address] [id number] [place] [address] 8718 Dec, [facility] [place] [facility] [address] [id number] [place] [address] 1784 Dec, [facility] [place] [facility] [address] [id number] [place] [address]- 8304 Dec, [facility] [place] [facility] [address] [id number] [place] [address]- 1496 Dec, [facility] [place] [facility] [address] [id number] [place] [address] 17 Dec, 2011 [facility] [place] [facility] [address] [id number] [place] [address] 5260 Dec, [facility] [place] [facility] [address] [id number] [place] [address] 2540 Dec, [facility] [place] [facility] [address] [id number] [place] [address] 2546 Nov, [facility] [place] [facility] [address] [id number] [place] [address] 2543 Nov, [facility] [place] [facility] [address] [id number] [place] [address] Nov, [facility] [address] [facility] [id number] [place] [address]7 Oct, [facility] [address] [facility] [id number] [place] [address] Oct, [facility] [address] [facility] [id number] [place] [address] 2948 Oct, [facility] [address] [facility] [id number] [place] [address]347 Oct, [facility] [address] [facility] [id number] [place] [address] Sep, IMMUNIZATIONS No Known Immunizations SOCIAL HISTORY Never Assessed REASON FOR VISIT Controlled Med Refill PLAN OF CARE VITAL SIGNS MEDICATIONS Medication Instructions Dosage Frequency Start Date End Date Duration Status Hinkley 10-325 MG Orally every 6 hrs 1 tablet as needed 6h Sep, 28 days Active RESULTS No Results PROCEDURES No Known procedures INSTRUCTIONS MEDICATIONS ADMINISTERED No Known Medications MEDICAL (GENERAL) HISTORY Type Description Date Medical History cardiovascular disorder-CAD s/p CABG x 2 ([facility]) Medical History hypertension Medical History hyperlipidemia Medical History thyroid disorder-hypothyroidism Medical History type II diabetes Medical History Arthritis Medical History chronic pain Medical History depression Medical History anxiety Medical History gastric ulcers Surgical History cholecystectomy 1998 Surgical History heart cath-patent grafts 04/2011 Surgical History angioplasty 08/2013 Surgical History orthopedic surgery-total knee replacement (left), also had right done, and right heel spur removed (Reveal) 2004, 2010, 2011 Surgical History thyroidectomy Surgical History hysterectomy Surgical History bladder surgery Surgical History intracapsular cataract extraction with insertion of intraocular lens prosthesis Hospitalization History admitted to [facility] for bronchitis then went into cardiac arrest and was resuscitated. She was in the hospital for 7 days. 2012 Hospitalization History surgeries
--- OUTSIDE RECORDS SUMMARY | 2019-01-07 23:47 | XMS REPORT ---
Author Author NALINI GOMEZ Organization [facility] Address [address] [place] [address] Care Team Providers Care Power Nut Runner Operator Name Role Phone NALINI GOMEZ Unavailable PROBLEMS Type Condition ICD9-CM Code TQW66-ZS Code Onset Dates Condition Status SNOMED Code Problem Hypothyroidism, unspecified E03.9 Active 50681975 Problem Hypothyroidism (acquired) E03.9 Active 39216662 Problem Acquired hypothyroidism E03.9 Active 868517557 Problem Other chronic pain G89.29 Active 59611292 Problem Hypertension, benign I10 Active 07197791 Problem Episode of recurrent major depressive disorder, unspecified depression episode severity F33.9 Active 191194516 Problem Mixed hyperlipidemia E78.2 Active 772643027 Problem Stress incontinence of urine N39.3 Active 24223697 Problem Urinary, incontinence, stress female N39.3 Active 26793394 Problem Hypercholesterolemia 272.0 Active 53981856 Problem Type 2 diabetes mellitus without complications E11.9 Active 293897262 Problem Other chronic pain G89.29 Active 10052756 Problem Panlobular emphysema J43.1 Active 0682231 Problem Controlled type 2 diabetes mellitus without complication, without long -term current use of insulin E11.9 Active 884476074 ALLERGIES No Information ENCOUNTERS Encounter Location Date Diagnosis [facility] [id number] [place] [address] 04529- 2288 Jul, Stress incontinence of urine N39.3 [facility] [address] [address] Jun, [facility] [id number] [place] [address] 16060- 3866 Jun, Other chronic pain G89.29 [facility] [address] [address] 6962 Jun, Other chronic pain G89.29 [place] [id number] [place] [address] 59862- 7618 Jun, Stress incontinence of urine N39.3 ; Controlled type 2 diabetes mellitus without complication, without long-term current use of insulin E11.9 and Hypertension, benign I10 [place] [id number] [place] [address] 10195- 3286 Jun, [place] [address] 92466- 4797 Jun, [place] [address] 45157- 0338 May, [place] [address] 05873- 6741 May, Viral gastroenteritis A08.4 [place] [id number] [place] [address] 35847- 7196 May, Acute diffuse otitis externa of left ear H60.312 and Acquired hypothyroidism E03.9 [facility] [id number] [place] [address] 25392- 6148 May, Episode of recurrent major depressive disorder, unspecified depression episode severity F33.9 ; Urinary, incontinence, stress female N39.3 ; Mixed hyperlipidemia E78.2 and Hypothyroidism (acquired) E03.9 [place] [id number] [place] [address] 89579- 1691 May, [facility] [facility] [id number] [place] [address] 55368- 2948 May, Viral gastroenteritis A08.4 [place] [id number] [place] [address] 53863- 8219 Apr, Acute diffuse otitis externa of left ear H60.312 and Hypothyroidism (acquired) E03.9 [place] [id number] [place] [address] 19990- 6177 Apr, Viral gastroenteritis A08.4 and Acquired hypothyroidism E03.9 [place] [address] [id number] [place] [address] 32352- 0208 Apr, Type 2 diabetes mellitus without complications E11.9 and Panlobular emphysema J43.1 [place] [id number] [place] [address] 36710- 6609 Apr, Viral gastroenteritis A08.4 [place] [id number] [place] [address] 61934- 8549 March, [place] [address] 16348- 1288 March, Viral gastroenteritis A08.4 [place] [address] 65545- 0404 Feb, Panlobular emphysema J43.1 [place] [id number] [place] [address] 30988- 5223 Feb, Panlobular emphysema J43.1 [place] [id number] [place] [address] 86312- 8125 Feb, [place] [id number] [place] [address] 08525- 8918 Feb, [place] [id number] [place] [address] 62166- 9919 Feb, Viral gastroenteritis A08.4 [place] [id number] [place] [address] 45985- 7229 Feb, Head lice B85.0 [place] [id number] [place] [address] 14317- 0519 Feb, Medicare annual wellness visit, initial Z00.00 ; Head lice B85.0 ; Tinea corporis B35.4 and Enlarged lymph node R59.9 [place] [id number] [place] [address] 26061- 5601 Jan, Viral gastroenteritis A08.4 [place] [id number] [place] [address] 11413- 1415 Jan, [place] [id number] [place] [address] 73971- 3277 Dec, Controlled type 2 diabetes mellitus without complication, without long-term current use of insulin E11.9 [place] [id number] [place] [address] 70804- 9810 Dec, [place] [address] 25815- 2710 Dec, Viral gastroenteritis A08.4 [place] [address] 47616- 3570 Nov, Viral gastroenteritis A08.4 [place] [id number] [place] [address] 81811- 0797 Oct, Acute upper respiratory infection, unspecified J06.9 and Other viral agents as the cause of diseases classified elsewhere B97.89 [place] [id number] [place] [address] 96862- 5134 Oct, Viral gastroenteritis A08.4 [facility] [facility] [id number] [place] [address] 11107- 9088 Oct, Controlled type 2 diabetes mellitus without complication, without long-term current use of insulin E11.9 ; Encounter for immunization Z23 and Acute pain of left foot M79.672 [place] [id number] [place] [address] 71657- 7820 Sep, Viral gastroenteritis A08.4 [place] [id number] [place] [address] 81712- 5029 Aug, Viral gastroenteritis A08.4 [place] [address] 11206- 2581 Jul, Viral gastroenteritis A08.4 [facility] [id number] [place] [address] 29870 -3062 Jul, Acute nasopharyngitis (common cold) J00 [place] [id number] [place] [address] 55002- 6331 Jun, Viral gastroenteritis A08.4 [place] [id number] [place] [address] 74137- 4632 Jun, [place] [id number] [place] [address] 81935- 7700 Jun, Viral gastroenteritis A08.4 [place] [id number] [place] [address] 67666- 5329 May, Patellar tendinitis, left knee M76.52 [place] [id number] [place] [address] 09227- 2491 May, Viral gastroenteritis A08.4 [place] [id number] [place] [address] 22112- 2751 Apr, Viral gastroenteritis A08.4 and Hypothyroidism, unspecified E03.9 [place] [id number] [place] [address] 26162- 6743 Apr, Pain in left knee M25.562 ; Acute left-sided low back pain without sciatica M54.5 and Type 2 diabetes mellitus without complications E11.9 [place] [id number] [place] [address] 09869- 6435 Apr, Viral gastroenteritis A08.4 [place] [id number] [place] [address] 50565- 9416 March, Viral gastroenteritis A08.4 [facility] [address] [place] [address] 95689 -8593 Feb, Acute pain of left knee M25.562 [place] [id number] [place] [address] 89172- 1338 Feb, Viral gastroenteritis A08.4 [facility] [id number] [place] [address] 04306- 7847 Jan, Viral gastroenteritis A08.4 and Controlled type 2 diabetes mellitus without complication, without long-term current use of insulin E11.9 [place] [address] [address]- 6183 14 Jan, 2017 [place] [id number] [place] [address] 01951- 6906 16 Dec, 2016 Other chronic pain G89.29 ; Pain in left knee M25.562 ; Controlled type 2 diabetes mellitus without complication, without long-term current use of insulin E11.9 and Acute cystitis with hematuria N30.01 [place] [id number] [place] [address] 40907- 8984 Dec, [place] [address] 32484- 5428 Nov, Type 2 diabetes mellitus without complications E11.9 [place] [id number] [place] [address] 43375- 8106 Nov, [place] [id number] [place] [address] 24679- 7317 Oct, [place] [id number] [place] [address] 72380- 8399 Sep, [place] [id number] [place] [address] 54423- 3176 Aug, [place] [id number] [place] [address] 09739- 5130 Aug, [place] [id number] [place] [address] 72843- 7274 Jul, Controlled type 2 diabetes mellitus without complication, without long-term current use of insulin E11.9 ; Callus of foot L84 and URI, acute J06.9 [place] [id number] [place] [address] 81837- 6351 13 Jul, 2016 [place] [id number] [place] [address] 83766- 6995 Jun, Onychomycosis B35.1 and Nail ingrowing L60.0 [facility] [id number] [place] [address] 75723- 9898 Jun, [facility] [id number] [place] [address] 20330- 9497 Jun, Lumbar back pain with radiculopathy affecting left lower extremity M54.17 [facility] [id number] [place] [address] 63293- 2544 Jun, [facility] [id number] [place] [address] 47824- 3347 Jun, Other chronic pain G89.29 [facility] [address] 00878- 3017 Jun, Other chronic pain G89.29 [facility] [id number] [place] [address] 94851- 3136 Jun, Type 2 diabetes mellitus without complications E11.9 [facility] [id number] [place] [address] 06577- 2534 Jun, [facility] [id number] [place] [address] 17057- 9053 Jun, Onychomycosis B35.1 ; Callus L84 and Rash R21 [facility] [id number] [place] [address] 80237- 7719 May, [facility] [id number] [place] [address] 73586 2540 May, [facility] [id number] [place] [address] 37136- 8921 May, Type 2 diabetes mellitus without complications E11.9 [facility] [id number] [place] [address] 79707 2547 May, [facility] [id number] [place] [address] 88692- 1648 Apr, [facility] [address] [place] [address]- 1620 Apr, Type 2 diabetes mellitus without complications E11.9 ; Acquired hypothyroidism E03.9 ; Callus of foot L84 and Upper respiratory tract infection, unspecified type J06.9 [facility] [id number] [place] [address] 44720- 1256 March, [facility] [address] 85964- 0028 Feb, [facility] [address] 58168- 7268 Jan, Diabetes mellitus without mention of complication, type II or unspecified type, not stated as uncontrolled 250.00 [place] [id number] [place] [address] 36049- 4576 Jan, [place] [id number] [place] [address] 65026- 4260 Jan, Diabetes E11.9 and Hypothyroidism E03.9 [place] [id number] [place] [address] 42249- 3158 Dec, Diarrhea R19.7 [facility] [id number] [place] [address] 58931- 4048 Dec, [facility] [id number] [place] [address] 62396- 2372 Dec, Hypothyroidism, unspecified E03.9 [facility] [id number] [place] [address] 55018- 2394 Dec, [facility] [id number] [place] [address] 41865- 7196 Dec, Hypothyroidism, unspecified E03.9 [facility] [id number] [place] [address] 86049- 3798 Dec, Diarrhea R19.7 [facility] [id number] [place] [address] 36757- 2546 Dec, Diarrhea R19.7 [facility] [address] [address]- 2400 Nov, [facility] [address] [place] [address] 60141- 2614 Nov, [facility] [address] [address]- 4724 Oct, [facility] [id number] [place] [address] 74279- 7821 Sep, Postnasal drip R09.82 [facility] [id number] [place] [address] 98113- 6556 Sep, [facility] [id number] [place] [address] 03859- 0403 Sep, [facility] [id number] [place] [address] 96122- 3636 Aug, [facility] [id number] [address]- 4921 Aug, [facility] [id number] [place] [address] 67749- 4129 Jul, Hypothyroidism 244.9 [facility] [address] [address]- 0603 Jul, Diabetes mellitus without mention of complication, type II or unspecified type, not stated as uncontrolled 250.00 [facility] [address], [place] [address]- 4824 Jul, [facility] [address] [address]- 8265 Jul, [facility] [address] [place] [address] 95342- 9648 Jun, [facility] [address] [address]- 8125 May, Other chronic pain 338.29 [facility] [address] [address]- 8614 10 May, 2015 Other chronic pain 338.29 [facility] [id number] [place] [address], [place] [address]- 0722 09 May, 2015 [facility] [id number] [address]- 5011 08 May, 2015 [facility] [id number] [place] [address] 94138- 0818 Apr, Rash 782.1 ; Hypercholesterolemia 272.0 and Hypothyroidism 244.9 [facility] [id number] [place] [address] 29377- 1539 Apr, [facility] [id number] [place] [address] 97124- 4162 Apr, [facility] [id number] [place] [address] 73257- 1565 March, [facility] [id number] [place] [address] 64552- 5759 Feb, [facility] [id number] [place] [address] 64013- 9114 Feb, [facility] [id number] [address]- 1312 26 Jan, 2015 [facility] [address], [place] [address]- 6291 Jan, [facility] [address], [place] [address]- 9363 25 Jan, 2015 [facility] [id number] [place] [address] 27418- 2303 13 Jan, 2015 [facility] [id number] [address]- 9655 13 Jan, 2015 [facility] [address] [address]- 2772 11 Jan, 2015 [facility] [place] [facility] [address] [id number] [place] [address]- 7058 Jan, [facility] [place] [facility] [address] [id number] [place] [address]- 3341 Dec, [facility] [place] [facility] [address] [id number] [place] [address]- 1966 Dec, [facility] [place] [facility] [address] [id number] [place] [address]- 3548 Nov, [facility] [place] [facility] [address] [id number] [place] [address]- 4160 Nov, [facility] [place] [facility] [address] [id number] [place] [address]- 8701 Nov, [facility] [place] [facility] [address] [id number] [place] [address]- 6780 Nov, [facility] [place] [facility] [address] [id number] [place] [address]- 0690 Nov, [facility] [place] [facility] [address] [id number] [place] [address]- 9052 Nov, [facility] [place] [facility] [address] [id number] [place] [address]- 1122 Oct, [facility] [place] [facility] [address] [id number] [place] [address]- 6954 Oct, [facility] [place] [facility] [address] [id number] [place] [address]- 1426 Sep, [facility] [place] [facility] [address] [id number] [place] [address]- 1304 Sep, [facility] [place] [facility] [address] [id number] [place] [address]- 8886 Sep, [facility] [place] [facility] [address] [id number] [place] [address]- 0728 Sep, [facility] [place] [facility] [address] [id number] [place] [address]- 0107 Aug, [facility] [place] [facility] [address] [id number] [place]- 3572 Aug, [facility] [place] [facility] [address] [id number] [place] [address]- 3630 Jul, [facility] [place] [facility] [address] [id number] [place] [address]- 6222 Jul, [facility] [place] [facility] [address] [id number] [place] [address]- 4521 Jun, [facility] [place] [facility] [address] [id number] [place] [address]- 7580 Jun, [facility] [place] [facility] [address] [id number] [place] [address]- 6642 Jun, [facility] [place] [facility] [address] [id number] [place] [address]- 3963 Jun, [facility] [place] [facility] [address] [id number] [place] [address]- 7934 May, [facility] [place] [facility] [address] [id number] [place] [address]- 1521 May, [facility] [place] [facility] [address] [id number] [place] [address] May, [facility] [place] [facility] [address] [id number] [address] May, [facility] [place] [facility] [address] [id number], [place] [address] Apr, [facility] [place] [facility] [address] [id number] [place] [address] Apr, [facility] [place] [facility] [address] [id number] [place] [address] March, [facility] [place] [facility] [address] [id number] [place] [address] March, [facility] [place] [facility] [address] [id number] [place] [address] March, [facility] [place] [facility] [address] [id number] [place] [address] March, [facility] [place] [facility] [address] [id number] [place] [address] March, [facility] [place] [facility] [address] [id number] [place] [address] March, [facility] [place] [facility] [address] [id number] [place] [address] Feb, [facility] [place] [facility] [address] [id number] [place] [address] Feb, [facility] [place] [facility] [address] [id number] [place] [address] Feb, [facility] [place] [facility] [address] [id number] [place] [address] Feb, [facility] [place] [facility] [address] [id number] [place] [address] Feb, [facility] [place] [facility] [address] [id number] [place] [address] Feb, [facility] [place] [facility] [address] [id number] [place] [address] Feb, [facility] [place] [facility] [address] [id number] [place] [address] Feb, [facility] [place] [facility] [address] [id number] [place] [address] Jan, [facility] [place] [facility] [address] [id number] [place] [address] Jan, [facility] [place] [facility] [address] [id number] [place] [address] Jan, [facility] [place] [facility] [address] [id number] [place] [address] Jan, [facility] [place] [facility] [address] [id number] [place] [address] Jan, [facility] [place] [facility] [address] [id number] [place] [address] Jan, [facility] [place] [facility] [address] [id number] [place] [address] Jan, [facility] [place] [facility] [address] [id number] [place] [address] Jan, [facility] [place] [facility] [address] [id number] [place] [address] Jan, [facility] [place] [facility] [address] [id number] [place] [address] Dec, [facility] [place] [facility] [address] [id number] [place] [address] Dec, [facility] [place] [facility] [address] [id number] [place] [address] Nov, [facility] [place] [facility] [address] [id number] [place] [address] Nov, [facility] [place] [facility] [address] [id number] [place] [address] Nov, [facility] [place] [facility] [address] [id number] [place] [address] Nov, [facility] [place] [facility] [address] [id number] [place] [address] Nov, [facility] [place] [facility] [address] [id number] [place] [address] Nov, [facility] [place] [facility] [address] [id number] [place] [address] Oct, [facility] [place] [facility] [address] [id number] [place] [address] Oct, [facility] [place] [facility] [address] [id number], [place] [address] Sep, [facility] [place] [facility] [address] [id number] [place] [address] Sep, [facility] [place] [facility] [address] [id number] [place] [address] Sep, [facility] [place] [facility] [address] [id number] [place] [address] Sep, [facility] [place] [facility] [address] [id number] [place] [address] Sep, [facility] [place] [facility] [address] [id number] [place] [address] Sep, [facility] [place] [facility] [address] [id number] [place] [address] Sep, [facility] [place] [facility] [address] [facility] [id number] [place] [address] Sep, [facility] [place] [facility] [address] [id number] [place] [address] Aug, [facility] [place] [facility] [address] [id number] [place] [address] Aug, [facility] [place] [facility] [address] [facility] [id number] [place] [address] Aug, [facility] [place] [facility] [address] [id number] [address] Jul, [facility] [place] [facility] [address] [id number] [place] [address] Jul, [facility] [place] [facility] [address] [id number] [place] [address] Jul, [facility] [place] [facility] [address] [id number] [place] [address] Jun, [facility] [place] [facility] [address] [facility] [id number] [place] [address] Jun, [facility] [place] [facility] [address] [id number] [place] [address] Jun, [facility] [address] [id number] [place] [address] Jun, [facility] [place] [facility] [address] [id number] [place] [address] Jun, [facility] [place] [facility] [address] [id number] [place] [address] Jun, [facility] [place] [facility] [address] [id number] [place] [address] May, [facility] [place] [facility] [address] [id number] [place] [address]- [address] May, [facility] [place] [facility] [address] [id number] [place] [address] Apr, [facility] [place] [facility] [address] [id number] [place] [address] Apr, [facility] [address] [id number] [place] [address] March, [facility] [place] [facility] [address] [id number] [place] [address] Feb, [facility] [place] [facility] [address] [id number] [place] [address]- 9568 Feb, [facility] [place] [facility] [address] [id number] [place] [address]- [address] 16 Feb, 2013 [facility] [place] [facility] [address] [id number] [place] [address] Feb, [facility] [place] [facility] [address] [id number] [place] [address]- 9577 Jan, [facility] [place] [facility] [address] [id number] [place] [address] 56[address] Jan, [facility] [place] [facility] [address] [id number] [place] [address]- 1670 Jan, [facility] [place] [facility] [address] [id number] [place] [address]- 386[address] Jan, [facility] [place] [facility] [address] [id number] [place] [address]- 1548 Jan, [facility] [place] [facility] [address] [id number] [place] [address] Dec, [facility] [place] [facility] [address] [id number] [place] [address]798 Nov, [facility] [place] [facility] [address] [id number] [place] [address]- 67[address] Nov, [facility] [place] [facility] [address] [id number] [place] [address]- [address]16 Oct, [facility] [place] [facility] [address] [id number] [place] [address]- [address]281 Oct, [facility] [place] [facility] [address] [id number] [place] [address]- 1793 Oct, [facility] [place] [facility] [address] [id number] [place] [address]- 2443 Oct, [facility] [place] [facility] [address] [id number] [place] [address]- 1142 Oct, [facility] [place] [facility] [address] [id number], [place] [address] Oct, [facility] [place] [facility] [address] [id number], [place] [address] Oct, [facility] [place] [facility] [address] [id number] [place] [address] 5765 Oct, [facility] [place] [facility] [address] [id number] [place] [address]- 0735 Aug, [facility] [place] [facility] [address] [id number] [place] [address]- 4869 Aug, [facility] [place] [facility] [address] [id number] [place] [address]- [address] 26 Aug, 2012 [facility] [place] [facility] [address] [id number] [place] [address]- 7799 26 Aug, 2012 [facility] [place] [facility] [address] [id number] [place] [address]- 8446 19 Aug, 2012 [facility] [place] [facility] [address] [id number] [place] [address]- [address]106 19 Aug, 2012 [facility] [place] [facility] [address] [id number] [place] [address]- 7726 15 Aug, 2012 [facility] [place] [facility] [address] [id number] [place] [address]- 1396 27 Jul, 2012 [facility] [place] [facility] [address] [id number] [place] [address]- 2621 27 Jul, 2012 [facility] [place] [facility] [address] [id number] [place] [address]- [address] 27 Jul, 2012 [facility] [place] [facility] [address] [id number] [place] [address]- 2475 27 Jul, 2012 [facility] [place] [facility] [address] [id number] [place] [address]- 0186 03 Jul, 2012 [facility] [place] [facility] [address] [id number] [place] [address]- 2214 28 Jun, 2012 [facility] [place] [facility] [address] [id number] [place] [address]- 5936 Jun, [facility] [place] [facility] [address] [id number] [place] [address]- 2541 Jun, [facility] [place] [facility] [address] [id number] [place] [address]- 8060 May, [facility] [place] [facility] [address] [id number] [place] [address]- 3776 May, [facility] [place] [facility] [address] [id number] [place] [address]- 5229 May, [facility] [place] [facility] [address] [id number] [place] [address]- 1136 May, [facility] [place] [facility] [address] [id number] [place] [address]- 5006 May, [facility] [place] [facility] [address] [id number] [place] [address]- 0166 May, [facility] [place] [facility] [address] [id number] [place] [address]- 9753 May, [facility] [address] [id number] [place] [address] 4080 Apr, [facility] [place] [facility] [address] [id number] [place] [address]- [address] Apr, [facility] [place] [facility] [address] [id number] [place] [address]- 9986 March, [facility] [place] [facility] [address] [id number] [place] [address]- 4455 Feb, [facility] [place] [facility] [address] [id number] [place] [address]- 7761 Jan, [facility] [place] [facility] [address] [id number] [place] [address]- 6118 Jan, [facility] [place] [facility] [address] [id number] [place] [address]- 4[address] Jan, [facility] [place] [facility] [address] [id number] [place] [address]- 2320 Jan, [facility] [place] [facility] [address] [id number] [place] [address]- 235[address] Jan, [facility] [place] [facility] [address] [id number] [place] [address]- 6537 Jan, [facility] [place] [facility] [address] [id number] [place] [address]- 6302 Jan, [facility] [place] [facility] [address] [id number] [place] [address]- 7490 Jan, [facility] [place] [facility] [address] [id number] [place] [address]- 4416 Jan, [facility] [place] [facility] [address] [id number] [place] [address]- 9186 Jan, [facility] [place] [facility] [address] [id number] [place] [address]- 3006 Dec, [facility] [place] [facility] [address] [id number] [place] [address]- 6805 Dec, [facility] [place] [facility] [address] [id number] [place] [address]- 9489 Dec, [facility] [place] [facility] [address] [id number] [place] [address]- 2106 Dec, [facility] [address] [facility] [id number] [place] [address]- 6672 Dec, [facility] [place] [facility] [address] [id number] [place] [address]- 0530 Dec, [facility] [place] [facility] [address] [id number] [place] [address]- 5367 Dec, [facility] [place] [facility] [address] [facility] [id number] [place] [address]- 9891 Dec, [facility] [place] [facility] [address] [facility] [id number] [place] [address]- 7796 Nov, [facility] [place] [facility] [address] [id number] [place] [address] 2548 29 Nov, 2011 [facility] [place] [facility] [address] [id number] [place] [address]- 3236 Nov, [facility] [place] [facility] [address] [facility] [id number] [place] [address]- 3926 Oct, [facility] [place] [facility] [address] [facility] [id number] [place] [address] Oct, [facility] [address] [facility] [id number] [place] [address]- 8218 Oct, [facility] [address] [facility] [id number] [place] [address] Oct, [facility] [address] [facility] [id number] [place] [address]- [address] Sep, IMMUNIZATIONS No Known Immunizations SOCIAL HISTORY Never Assessed REASON FOR VISIT PDM PLAN OF CARE VITAL SIGNS MEDICATIONS Unknown Medications RESULTS No Results PROCEDURES No Known procedures INSTRUCTIONS MEDICATIONS ADMINISTERED No Known Medications MEDICAL (GENERAL) HISTORY Type Description Date Medical History cardiovascular disorder-CAD s/p CABG x 2 () Medical History hypertension Medical History hyperlipidemia Medical [...] intraocular lens prosthesis Hospitalization History admitted to [facility] for bronchitis then went into cardiac arrest and was resuscitated. She was in the hospital for 7 days. 2012 Hospitalization History surgeries
--- OUTSIDE RECORDS SUMMARY | 2019-01-07 23:47 | XMS REPORT ---
Author Author NALINI GOMEZ Organization [facility] Address [address] [place] [address] Care Team Providers Care Store Detective Name Role Phone NALINI GOMEZ Unavailable PROBLEMS Type Condition ICD9-CM Code [id number] Code Onset Dates Condition Status SNOMED Code Problem Hypothyroidism, unspecified E03.9 Active 09941869 Problem Hypothyroidism (acquired) E03.9 Active 91730710 Problem Acquired hypothyroidism E03.9 Active 431104718 Problem Other chronic pain G89.29 Active 49093221 Problem Hypertension, benign I10 Active 37991438 Problem Episode of recurrent major depressive disorder, unspecified depression episode severity F33.9 Active 149895328 Problem Mixed hyperlipidemia E78.2 Active 111469264 Problem Stress incontinence of urine N39.3 Active 17878336 Problem Urinary, incontinence, stress female N39.3 Active 52083837 Problem Hypercholesterolemia 272.0 Active 14006886 Problem Type 2 diabetes mellitus without complications E11.9 Active 826549387 Problem Other chronic pain G89.29 Active 99436115 Problem Panlobular emphysema J43.1 Active 8021966 Problem Controlled type 2 diabetes mellitus without complication, without long -term current use of insulin E11.9 Active [id number] ALLERGIES No Information ENCOUNTERS Encounter Location Date Diagnosis [facility] [id number] [place] [address] 97750- 8844 Jul, Stress incontinence of urine N39.3 [facility] [address], [place] [address] 5048 Jun, [facility] [id number] [place] [address] 05959- 1594 Jun, Other chronic pain G89.29 [facility] [address], [place] [address] 2108 Jun, Other chronic pain G89.29 [facility] [id number] [place] [address] 27326- 3303 Jun, Stress incontinence of urine N39.3 ; Controlled type 2 diabetes mellitus without complication, without long-term current use of insulin E11.9 and Hypertension, benign I10 [facility] [id number] [place] [address] 81657- 1084 Jun, [facility] [address] 09978- 8497 Jun, [facility] [address] 77211- 9497 May, [facility] [address] 88014- 7351 May, Viral gastroenteritis A08.4 [facility] [id number] [place] [address] 57337- 4877 May, Acute diffuse otitis externa of left ear H60.312 and Acquired hypothyroidism E03.9 [facility] [id number] [place] [address] 39447- 0857 May, Episode of recurrent major depressive disorder, unspecified depression episode severity F33.9 ; Urinary, incontinence, stress female N39.3 ; Mixed hyperlipidemia E78.2 and Hypothyroidism (acquired) E03.9 [facility] [id number] [place] [address] 85208- 3570 May, [facility] [id number] [place] [address] 50031- 3423 May, Viral gastroenteritis A08.4 [facility] [id number] [place] [address] 82860- 0887 Apr, Acute diffuse otitis externa of left ear H60.312 and Hypothyroidism (acquired) E03.9 [facility] [id number] [place] [address] 33689- 4070 Apr, Viral gastroenteritis A08.4 and Acquired hypothyroidism E03.9 [facility] [id number] [place] [address] 13081- 6649 Apr, Type 2 diabetes mellitus without complications E11.9 and Panlobular emphysema J43.1 [facility] [id number] [place] [address] 48497- 7254 Apr, Viral gastroenteritis A08.4 [facility] [id number] [place] [address] 31841- 5756 March, [facility] [address] 76656- 7251 March, Viral gastroenteritis A08.4 [facility] [address] 72802- 8400 Feb, Panlobular emphysema J43.1 [facility] [id number] [place] [address] 90062- 4063 Feb, Panlobular emphysema J43.1 [facility] [id number] [place] [address] 74182- 8542 Feb, [facility] [id number] [place] [address] 58544- 2388 Feb, [facility] [id number] [place] [address] 14504- 1990 Feb, Viral gastroenteritis A08.4 [facility] [id number] [place] [address] 86391- 2820 Feb, Head lice B85.0 [facility] [id number] [place] [address] 42123- 1104 Feb, Medicare annual wellness visit, initial Z00.00 ; Head lice B85.0 ; Tinea corporis B35.4 and Enlarged lymph node R59.9 [facility] [id number] [place] [address] 88639- 3248 Jan, Viral gastroenteritis A08.4 [facility] [id number] [place] [address] 50762- 3723 Jan, [facility] [id number] [place] [address] 88895- 7379 Dec, Controlled type 2 diabetes mellitus without complication, without long-term current use of insulin E11.9 [facility] [id number] [place] [address] 02345- 9376 Dec, [facility] [address] 59262- 2275 Dec, Viral gastroenteritis A08.4 [facility] [address] 32622- 4395 Nov, Viral gastroenteritis A08.4 [facility] [id number] [place] [address] 00238- 4288 Oct, Acute upper respiratory infection, unspecified J06.9 and Other viral agents as the cause of diseases classified elsewhere B97.89 [facility] [id number] [place] [address] 22553- 0190 Oct, Viral gastroenteritis A08.4 [facility] [id number] [place] [address] 95656- 3833 Oct, Controlled type 2 diabetes mellitus without complication, without long-term current use of insulin E11.9 ; Encounter for immunization Z23 and Acute pain of left foot M79.672 [facility] [id number] [place] [address] 99978- 5493 Sep, Viral gastroenteritis A08.4 [facility] [id number] [place] [address] 34340- 9143 Aug, Viral gastroenteritis A08.4 [facility] [address] 54755- 4611 Jul, Viral gastroenteritis A08.4 [facility] [id number] [place] [address] 62155 -1891 Jul, Acute nasopharyngitis (common cold) J00 [facility] [id number] [place] [address] 29633- 1491 Jun, Viral gastroenteritis A08.4 [facility] [id number] [place] [address] 26403- 8025 Jun, [facility] [id number] [place] [address] 40549- 5586 Jun, Viral gastroenteritis A08.4 [facility] [id number] [place] [address] 57232- 7583 May, Patellar tendinitis, left knee M76.52 [facility] [id number] [place] [address] 64607- 5246 May, Viral gastroenteritis A08.4 [facility] [id number] [place] [address] 95797- 2988 Apr, Viral gastroenteritis A08.4 and Hypothyroidism, unspecified E03.9 [facility] [id number] [place] [address] 92106- 6996 Apr, Pain in left knee M25.562 ; Acute left-sided low back pain without sciatica M54.5 and Type 2 diabetes mellitus without complications E11.9 [facility] [id number] [place] [address] 61713- 0116 Apr, Viral gastroenteritis A08.4 [facility] [id number] [place] [address] 38020- 6842 March, Viral gastroenteritis A08.4 [facility] [address] [place] [address] 63067 -9789 Feb, Acute pain of left knee M25.562 [facility] [id number] [place] [address] 64632- 3863 Feb, Viral gastroenteritis A08.4 [facility] [id number] [place] [address] 93900- 5560 Jan, Viral gastroenteritis A08.4 and Controlled type 2 diabetes mellitus without complication, without long-term current use of insulin E11.9 [facility] [address], [place] [address]- 8869 14 Jan, 2017 [facility] [id number] [place] [address] 22024- 2987 16 Dec, 2016 Other chronic pain G89.29 ; Pain in left knee M25.562 ; Controlled type 2 diabetes mellitus without complication, without long-term current use of insulin E11.9 and Acute cystitis with hematuria N30.01 [facility] [id number] [place] [address] 64469- 6516 Dec, [facility] [address] 69972- 5243 Nov, Type 2 diabetes mellitus without complications E11.9 [facility] [id number] [place] [address] 85698- 5782 Nov, [facility] [id number] [place] [address] 24966- 0250 Oct, [facility] [id number] [place] [address] 36436- 7075 Sep, [facility] [id number] [place] [address] 96615- 5003 Aug, [facility] [id number] [place] [address] 03606- 3529 Aug, [facility] [id number] [place] [address] 83681- 7441 Jul, Controlled type 2 diabetes mellitus without complication, without long-term current use of insulin E11.9 ; Callus of foot L84 and URI, acute J06.9 [facility] [id number] [place] [address] 62843- 1331 13 Jul, 2016 [facility] [id number] [place] [address] 65844- 6969 Jun, Onychomycosis B35.1 and Nail ingrowing L60.0 [facility] [id number] [place] [address] 16263- 9115 Jun, [facility] [id number] [place] [address] 66447- 2465 Jun, Lumbar back pain with radiculopathy affecting left lower extremity M54.17 [facility] [id number] [place] [address] 52742- 4124 Jun, [facility] [id number] [place] [address] 06603- 8797 Jun, Other chronic pain G89.29 [facility] [address] 05787- 4315 Jun, Other chronic pain G89.29 [facility] [id number] [place] [address] 40933- 8386 Jun, Type 2 diabetes mellitus without complications E11.9 [facility] [id number] [place] [address] 55672- 0608 Jun, [facility] [id number] [place] [address] 18949- 9294 Jun, Onychomycosis B35.1 ; Callus L84 and Rash R21 [facility] [id number] [place] [address] 28603- 8851 May, [facility] [id number] [place] [address] 11619 2549 May, [facility] [id number] [place] [address] 27444- 5887 May, Type 2 diabetes mellitus without complications E11.9 [facility] [id number] [place] [address] 22120 2542 May, [facility] [id number] [place] [address] 87218- 7972 Apr, [facility] [address] [place] [address]- 5430 Apr, Type 2 diabetes mellitus without complications E11.9 ; Acquired hypothyroidism E03.9 ; Callus of foot L84 and Upper respiratory tract infection, unspecified type J06.9 [facility] [id number] [place] [address] 56642- 7564 March, [facility] [address] 18672- 1979 Feb, [facility] [address] 12260- 3772 Jan, Diabetes mellitus without mention of complication, type II or unspecified type, not stated as uncontrolled 250.00 [facility] [id number] [place] [address] 49707- 3219 Jan, [facility] [id number] [place] [address] 81671- 3944 Jan, Diabetes E11.9 and Hypothyroidism E03.9 [facility] [id number] [place] [address] 15920- 7581 Dec, Diarrhea R19.7 [facility] [id number] [place] [address] 72295- 2226 Dec, [facility] [id number] [place] [address] 31127- 4612 Dec, Hypothyroidism, unspecified E03.9 [facility] [id number] [place] [address] 23143- 1059 Dec, [facility] [id number] [place] [address] 14987- 6195 Dec, Hypothyroidism, unspecified E03.9 [facility] [id number] [place] [address] 29027- 0190 Dec, Diarrhea R19.7 [facility] [id number] [place] [address] 80723- 2546 Dec, Diarrhea R19.7 [facility] [address], [place] [address]- 7431 Nov, [facility] [address] [place] [address] 31764- 5456 Nov, [facility] [address], [place] [address]- 8985 Oct, [facility] [id number] [place] [address] 76738- 4909 Sep, Postnasal drip R09.82 [facility] [id number] [place] [address] 78170- 8710 Sep, [facility] [id number] [place] [address] 48447- 6728 Sep, [facility] [id number] [place] [address] 09969- 1808 Aug, [facility] [address] [address]- 2409 Aug, [facility] [id number] [place] [address] 02901- 6444 Jul, Hypothyroidism 244.9 [facility] [address], [place] [address]- 8336 Jul, Diabetes mellitus without mention of complication, type II or unspecified type, not stated as uncontrolled 250.00 [facility] [address], [place] [address]- 1558 Jul, [facility] [address], [place] [address]- 1512 Jul, [facility] [address] [place] [address] 24985- 0431 Jun, [facility] [address], [place] [address]- 9866 May, Other chronic pain 338.29 [facility] [address], [place] [address]- 1321 10 May, 2015 Other chronic pain 338.29 [facility] [id number] [place] [address], [place] [address]- 3945 09 May, 2015 [facility] [address] [address]- 9249 08 May, 2015 [facility] [id number] [place] [address] 02371- 8001 Apr, Rash 782.1 ; Hypercholesterolemia 272.0 and Hypothyroidism 244.9 [facility] [id number] [place] [address] 55763- 7755 Apr, [facility] [id number] [place] [address] 81243- 6632 Apr, [facility] [id number] [place] [address] 09792- 4889 March, [facility] [id number] [place] [address] 58428- 0058 Feb, [facility] [id number] [place] [address] 84159- 9229 Feb, [facility] [address] [address]- 4116 26 Jan, 2015 [facility] [address], [place] [address]- 9647 Jan, [facility] [address], [place] [address]- 0694 25 Jan, 2015 [facility] [address] [place] [address] 49271- 3174 13 Jan, 2015 [facility] [address] [address]- 9243 13 Jan, 2015 [facility] [address], [place] [address]- 7598 11 Jan, 2015 [facility] [place] [facility] [address] [id number] [place] [address]- 0922 Jan, [facility] [place] [facility] [address] [id number] [place] [address]- 4510 Dec, [facility] [place] [facility] [address] [id number] [place] [address]- 7556 Dec, [facility] [place] [facility] [address] [id number] [place] [address]- 9738 Nov, [facility] [place] [facility] [address] [id number] [place] [address]- 3037 Nov, [facility] [place] [facility] [address] [id number] [place] [address]- 4455 Nov, [facility] [place] [facility] [address] [id number] [place] [address]- 9756 Nov, [facility] [place] [facility] [address] [id number] [place] [address]- 2958 Nov, [facility] [place] [facility] [address] [id number] [place] [address]- 1606 Nov, [facility] [place] [facility] [address] [id number] [place] [address]- 4786 Oct, [facility] [place] [facility] [address] [id number] [place] [address]- 0145 Oct, [facility] [place] [facility] [address] [id number] [place] [address]- 9075 Sep, [facility] [place] [facility] [address] [id number] [place] [address]- 7312 Sep, [facility] [place] [facility] [address] [id number] [place] [address]- 6307 Sep, [facility] [place] [facility] [address] [id number] [place] [address]- 8012 Sep, [facility] [place] [facility] [address] [id number] [place] [address]- 8086 Aug, [facility] [place] [facility] [address] [id number] [place] 2128 Aug, [facility] [place] [facility] [address] [id number] [place] [address]- 9747 Jul, [facility] [place] [facility] [address] [id number] [place] [address]- 0731 Jul, [facility] [place] [facility] [address] [id number] [place] [address]- 1649 Jun, [facility] [place] [facility] [address] [id number] [place] [address]- 3207 Jun, [facility] [place] [facility] [address] [id number] [place] [address]- 0218 Jun, [facility] [place] [facility] [address] [id number] [place] [address]- 4345 Jun, [facility] [place] [facility] [address] [id number] [place] [address]- 9704 May, [facility] [place] [facility] [address] [id number] [place] [address]- 9531 May, [facility] [place] [facility] [address] [id number] [place] [address]- 5689 May, [facility] [place] [facility] [address] [id number], [place] [address]- 9586 May, [facility] [place] [facility] [address] [id number], [place] [address]- 5001 Apr, [facility] [place] [facility] [address] [id number] [place] [address]- 7367 Apr, [facility] [place] [facility] [address] [id number] [place] [address]- 5086 March, [facility] [place] [facility] [address] [id number] [place] [address]- 7074 March, [facility] [place] [facility] [address] [id number] [place] [address]- 5015 March, [facility] [place] [facility] [address] [id number] [place] [address]- 1956 March, [facility] [place] [facility] [address] [id number] [place] [address]- 6398 March, [facility] [place] [facility] [address] [id number] [place] [address]- 7252 March, [facility] [place] [facility] [address] [id number] [place] [address]- 5797 Feb, [facility] [place] [facility] [address] [id number] [place] [address]- 7851 Feb, [facility] [place] [facility] [address] [id number] [place] [address]- 3437 Feb, [facility] [place] [facility] [address] [id number] [place] [address]- 4151 Feb, [facility] [place] [facility] [address] [id number] [place] [address]- 6068 Feb, [facility] [place] [facility] [address] [id number] [place] [address]- 8070 Feb, [facility] [place] [facility] [address] [id number] [place] [address]- 7959 Feb, [facility] [place] [facility] [address] [id number] [place] [address]- 0512 Feb, [facility] [place] [facility] [address] [id number] [place] [address]- 3181 Jan, [facility] [place] [facility] [address] [id number] [place] [address]- 3165 Jan, [facility] [place] [facility] [address] [id number] [place] [address]- 9081 Jan, [facility] [place] [facility] [address] [id number] [place] [address]- 5791 Jan, [facility] [place] [facility] [address] [id number] [place] [address] Jan, [facility] [place] [facility] [address] [id number] [place] [address] Jan, [facility] [place] [facility] [address] [id number] [place] [address] Jan, [facility] [place] [facility] [address] [id number] [place] [address] Jan, [facility] [place] [facility] [address] [id number] [place] [address] Jan, [facility] [place] [facility] [address] [id number] [place] [address] Dec, [facility] [place] [facility] [address] [id number] [place] [address] Dec, [facility] [place] [facility] [address] [id number] [place] [address] Nov, [facility] [place] [facility] [address] [id number] [place] [address] Nov, [facility] [place] [facility] [address] [id number] [place] [address] Nov, [facility] [place] [facility] [address] [id number] [place] [address] Nov, [facility] [place] [facility] [address] [id number] [place] [address] Nov, [facility] [place] [facility] [address] [id number] [place] [address] Nov, [facility] [place] [facility] [address] [id number] [place] [address] Oct, [facility] [place] [facility] [address] [id number] [place] [address] Oct, [facility] [place] [facility] [address] [id number], [place] [address] Sep, [facility] [place] [facility] [address] [id number] [place] [address] Sep, [facility] [place] [facility] [address] [id number] [place] [address] Sep, [facility] [place] [facility] [address] [id number] [place] [address] Sep, [facility] [place] [facility] [address] [id number] [place] [address] Sep, [facility] [place] [facility] [address] [id number] [place] [address] Sep, [facility] [place] [facility] [address] [id number] [place] [address] Sep, [facility] [place] [facility] [address] [facility] [id number] [place] [address] Sep, [facility] [place] [facility] [address] [id number] [place] [address] Aug, [facility] [place] [facility] [address] [id number] [place] [address] Aug, [facility] [place] [facility] [address] [facility] [id number] [place] [address] Aug, [facility] [place] [facility] [address] [id number], [place] [address] Jul, [facility] [place] [facility] [address] [id number] [place] [address] Jul, [facility] [place] [facility] [address] [id number] [place] [address] Jul, [facility] [place] [facility] [address] [id number] [place] [address] Jun, [facility] [place] [facility] [address] [facility] [id number] [place] [address] Jun, [facility] [place] [facility] [address] [id number] [place] [address] Jun, [facility] [address] [id number] [place] [address] Jun, [facility] [place] [facility] [address] [id number] [place] [address] Jun, [facility] [place] [facility] [address] [id number] [place] [address] Jun, [facility] [place] [facility] [address] [id number] [place] [address] May, [facility] [place] [facility] [address] [id number] [place] [address] May, [facility] [place] [facility] [address] [id number] [place] [address] Apr[facility] [place] [facility] [address] [id number] [place] [address] Apr, [facility] [address] [id number] [place] [address] March, [facility] [place] [facility] [address] [id number] [place] [address] Feb, [facility] [place] [facility] [address] [id number] [place] [address] Feb, [facility] [place] [facility] [address] [id number] [place] [address] 16 Feb, 2013 [facility] [place] [facility] [address] [id number] [place] [address] Feb, [facility] [place] [facility] [address] [id number] [place] [address] Jan, [facility] [place] [facility] [address] [id number] [place] [address] Jan, [facility] [place] [facility] [address] [id number] [place] [address] Jan, [facility] [place] [facility] [address] [id number] [place] [address] Jan, [facility] [place] [facility] [address] [id number] [place] [address]- 2356 Jan, [facility] [place] [facility] [address] [id number] [place] [address] Dec, [facility] [place] [facility] [address] [id number] [place] [address] Nov, [facility] [place] [facility] [address] [id number] [place] [address]- [address] Nov, [facility] [place] [facility] [address] [id number] [place] [address] Oct, [facility] [place] [facility] [address] [id number] [place] [address] Oct, [facility] [place] [facility] [address] [id number] [place] [address] 28[address] Oct, [facility] [place] [facility] [address] [id number] [place] [address]369 Oct, [facility] [place] [facility] [address] [id number] [place] [address] Oct, [facility] [place] [facility] [address] [id number], [place] [address] Oct, [facility] [place] [facility] [address] [id number], [place] [address] Oct, [facility] [place] [facility] [address] [id number] [place] [address] Oct, [facility] [place] [facility] [address] [id number] [place] [address]- 46[address] Aug, [facility] [place] [facility] [address] [id number] [place] [address] 27[address] Aug, [facility] [place] [facility] [address] [id number] [place] [address]- [address] 26 Aug, 2012 [facility] [place] [facility] [address] [id number] [place] [address] 26 Aug, 2012 [facility] [place] [facility] [address] [id number] [place] [address]- [address] 19 Aug, 2012 [facility] [place] [facility] [address] [id number] [place] [address]96 19 Aug, 2012 [facility] [place] [facility] [address] [id number] [place] [address] 15 Aug, 2012 [facility] [place] [facility] [address] [id number] [place] [address]- [address] 27 Jul, 2012 [facility] [place] [facility] [address] [id number] [place] [address] 27 Jul, 2012 [facility] [place] [facility] [address] [id number] [place] [address]- [address] 27 Jul, 2012 [facility] [place] [facility] [address] [id number] [place] [address]- 4445 27 Jul, 2012 [facility] [place] [facility] [address] [id number] [place] [address]- [address] 03 Jul, 2012 [facility] [place] [facility] [address] [id number] [place] [address]- 6312 28 Jun, 2012 [facility] [place] [facility] [address] [id number] [place] [address]- 8656 Jun, [facility] [place] [facility] [address] [id number] [place] [address]- 2548 Jun, [facility] [place] [facility] [address] [id number] [place] [address]- 1104 May, [facility] [place] [facility] [address] [id number] [place] [address]- [address] May, [facility] [place] [facility] [address] [id number] [place] [address]- [address]993 May, [facility] [place] [facility] [address] [id number] [place] [address]- [address]121 May, [facility] [place] [facility] [address] [id number] [place] [address]- 4936 May, [facility] [place] [facility] [address] [id number] [place] [address]- 8736 May, [facility] [place] [facility] [address] [id number] [place] [address]- 3433 May, [facility] [address] [id number] [place] [address] Apr, [facility] [place] [facility] [address] [id number] [place] [address]- 1559 Apr, [facility] [place] [facility] [address] [id number] [place] [address]- 1628 March, [facility] [place] [facility] [address] [id number] [place] [address]- 4861 Feb, [facility] [place] [facility] [address] [id number] [place] [address]- 8597 Jan, [facility] [place] [facility] [address] [id number] [place] [address]- 9543 Jan, [facility] [place] [facility] [address] [id number] [place] [address]- 9519 Jan, [facility] [place] [facility] [address] [id number] [place] [address]- 6705 Jan, [facility] [place] [facility] [address] [id number] [place] [address]- 1998 Jan, [facility] [place] [facility] [address] [id number] [place] [address]- 1189 Jan, [facility] [place] [facility] [address] [id number] [place] [address]- 4217 Jan, [facility] [place] [facility] [address] [id number] [place] [address]- 5537 Jan, [facility] [place] [facility] [address] [id number] [place] [address]- 0146 Jan, [facility] [place] [facility] [address] [id number] [place] [address]- 6356 Jan, [facility] [place] [facility] [address] [id number] [place] [address]- 6806 Dec, [facility] [place] [facility] [address] [id number] [place] [address]- 6396 Dec, [facility] [place] [facility] [address] [id number] [place] [address]- 4655 Dec, [facility] [place] [facility] [address] [id number] [place] [address]- 1476 Dec, [facility] [address] [facility] [id number] [place] [address]- 3521 Dec, [facility] [place] [facility] [address] [id number] [place] [address]- 0154 Dec, [facility] [place] [facility] [address] [id number] [place] [address]- 1508 Dec, [facility] [place] [facility] [address] [facility] [id number] [place] [address]- 8904 Dec, [facility] [place] [facility] [address] [facility] [id number] [place] [address]- 1807 Nov, [facility] [place] [facility] [address] [id number] [place] [address] 2545 29 Nov, 2011 [facility] [place] [facility] [address] [id number] [place] [address]- 5176 Nov, [facility] [place] [facility] [address] [facility] [id number] [place] [address]- 8386 Oct, [facility] [place] [facility] [address] [facility] [id number] [place] [address] 14 Oct, 2011 [facility] [address] [facility] [id number] [place] [address] [address] Oct, [facility] [address] [facility] [id number] [place] [address]- 5536 Oct, [facility] [address] [facility] [id number], [place] [address]- 1002 Sep, IMMUNIZATIONS No Known Immunizations SOCIAL HISTORY Never Assessed REASON FOR VISIT Controlled Med Refill PLAN OF CARE VITAL SIGNS MEDICATIONS Medication Instructions Dosage Frequency Start Date End Date Duration Status [place] 10-325 MG Orally every 6 hrs 1 tablet as needed 6h Jul, 28 days Active Atorvastatin Calcium 40 mg Orally Once a day 1 tablet 24h 30 Active Gabapentin 100 MG TAKE ONE CAPSULE BY MOUTH ONCE DAILY 90 Active Cetirizine HCl 10 MG TAKE ONE TABLET BY MOUTH ONCE DAILY 30 Active Citalopram Hydrobromide 10 MG TAKE ONE TABLET BY MOUTH ONCE DAILY 90 Active Zofran 4 mg Orally 3 times a day 1 tablet 8h 10 Active Montelukast Sodium 10 MG 1 tablet 24h 30 Active Ropinirole HCl 4 MG TAKE ONE TABLET BY MOUTH ONCE DAILY 90 Active RESULTS No Results PROCEDURES No Known [...] intraocular lens prosthesis Hospitalization History admitted to [facility] for bronchitis then went into cardiac arrest and was resuscitated. She was in the hospital for 7 days. 2012 Hospitalization History surgeries
--- OUTSIDE RECORDS SUMMARY | 2019-01-07 23:48 | XMS REPORT ---
Author Author NALINI GOMEZ Organization [facility] Address [address] [place] [address] Care Team Providers Care Reception Specialist Name Role Phone NALINI GOMEZ Unavailable PROBLEMS Type Condition ICD9-CM Code PHP18-VS Code Onset Dates Condition Status SNOMED Code Problem Hypothyroidism, unspecified E03.9 Active 74930439 Problem Hypothyroidism (acquired) E03.9 Active 77450137 Problem Acquired hypothyroidism E03.9 Active 782477594 Problem Other chronic pain G89.29 Active 38338384 Problem Hypertension, benign I10 Active 96652872 Problem Episode of recurrent major depressive disorder, unspecified depression episode severity F33.9 Active 829320954 Problem Mixed hyperlipidemia E78.2 Active 900464967 Problem Stress incontinence of urine N39.3 Active 35246320 Problem Urinary, incontinence, stress female N39.3 Active 38911311 Problem Hypercholesterolemia 272.0 Active 02142848 Problem Type 2 diabetes mellitus without complications E11.9 Active 415451118 Problem Other chronic pain G89.29 Active 27905724 Problem Panlobular emphysema J43.1 Active 6490283 Problem Controlled type 2 diabetes mellitus without complication, without long -term current use of insulin E11.9 Active 517277334 ALLERGIES No Information ENCOUNTERS Encounter Location Date Diagnosis [facility] [id number] [place] [address] 80752- 4600 Jul, Stress incontinence of urine N39.3 [facility] [address] [address] 3[address] Jun, [facility] [id number] [place] [address] 13617- 8875 Jun, Other chronic pain G89.29 [facility] [address] [address] 9708 Jun, Other chronic pain G89.29 [facility] [id number] [place] [address] 83151- 1557 Jun, Stress incontinence of urine N39.3 ; Controlled type 2 diabetes mellitus without complication, without long-term current use of insulin E11.9 and Hypertension, benign I10 [facility] [id number] [place] [address] 57232- 9421 Jun, [facility] [address] 45851- 5390 Jun, [facility] [address] 99629- 5268 May, [facility] [address] 05989- 2515 May, Viral gastroenteritis A08.4 [facility] [id number] [place] [address] 08611- 8567 May, Acute diffuse otitis externa of left ear H60.312 and Acquired hypothyroidism E03.9 [facility] [id number] [place] [address] 17749- 0280 May, Episode of recurrent major depressive disorder, unspecified depression episode severity F33.9 ; Urinary, incontinence, stress female N39.3 ; Mixed hyperlipidemia E78.2 and Hypothyroidism (acquired) E03.9 [facility] [id number] [place] [address] 79823- 3955 May, [facility] [id number] [place] [address] 02984- 0039 May, Viral gastroenteritis A08.4 [facility] [id number] [place] [address] 57266- 8045 Apr, Acute diffuse otitis externa of left ear H60.312 and Hypothyroidism (acquired) E03.9 [facility] [id number] [place] [address] 71477- 6951 Apr, Viral gastroenteritis A08.4 and Acquired hypothyroidism E03.9 [facility] [id number] [place] [address] 63132- 5464 Apr, Type 2 diabetes mellitus without complications E11.9 and Panlobular emphysema J43.1 [facility] [id number] [place] [address] 20243- 8532 Apr, Viral gastroenteritis A08.4 [facility] [id number] [place] [address] 98180- 5811 March, [facility] [address] 87314- 4267 March, Viral gastroenteritis A08.4 [facility] [address] 27442- 3387 Feb, Panlobular emphysema J43.1 [facility] [id number] [place] [address] 91291- 2504 Feb, Panlobular emphysema J43.1 [facility] [id number] [place] [address] 90090- 0861 Feb, [facility] [id number] [place] [address] 13510- 7371 Feb, [facility] [id number] [place] [address] 42913- 6185 Feb, Viral gastroenteritis A08.4 [facility] [id number] [place] [address] 67202- 4421 Feb, Head lice B85.0 [facility] [id number] [place] [address] 57752- 3902 Feb, Medicare annual wellness visit, initial Z00.00 ; Head lice B85.0 ; Tinea corporis B35.4 and Enlarged lymph node R59.9 [facility] [id number] [place] [address] 80667- 9487 Jan, Viral gastroenteritis A08.4 [facility] [id number] [place] [address] 43357- 7426 Jan, [facility] [id number] [place] [address] 33118- 1287 Dec, Controlled type 2 diabetes mellitus without complication, without long-term current use of insulin E11.9 [facility] [id number] [place] [address] 82774- 2117 Dec, [facility] [address] 83601- 3217 Dec, Viral gastroenteritis A08.4 [facility] [address] 86029- 3669 Nov, Viral gastroenteritis A08.4 [facility] [id number] [place] [address] 70645- 0123 Oct, Acute upper respiratory infection, unspecified J06.9 and Other viral agents as the cause of diseases classified elsewhere B97.89 [facility] [id number] [place] [address] 28051- 6020 Oct, Viral gastroenteritis A08.4 [facility] [id number] [place] [address] 70992- 0929 Oct, Controlled type 2 diabetes mellitus without complication, without long-term current use of insulin E11.9 ; Encounter for immunization Z23 and Acute pain of left foot M79.672 [facility] [id number] [place] [address] 43530- 2512 Sep, Viral gastroenteritis A08.4 [facility] [id number] [place] [address] 28415- 6196 Aug, Viral gastroenteritis A08.4 [facility] [address] 97524- 2082 Jul, Viral gastroenteritis A08.4 [facility] [id number] [place] [address] 00084 -4198 Jul, Acute nasopharyngitis (common cold) J00 [facility] [id number] [place] [address] 04046- 9570 Jun, Viral gastroenteritis A08.4 [facility] [id number] [place] [address] 51094- 8564 Jun, [facility] [id number] [place] [address] 74822- 2158 Jun, Viral gastroenteritis A08.4 [facility] [id number] [place] [address] 90314- 6881 May, Patellar tendinitis, left knee M76.52 [facility] [id number] [place] [address] 36159- 2201 May, Viral gastroenteritis A08.4 [facility] [id number] [place] [address] 05890- 2883 Apr, Viral gastroenteritis A08.4 and Hypothyroidism, unspecified E03.9 [facility] [id number] [place] [address] 76002- 3370 Apr, Pain in left knee M25.562 ; Acute left-sided low back pain without sciatica M54.5 and Type 2 diabetes mellitus without complications E11.9 [facility] [id number] [place] [address] 83746- 5158 Apr, Viral gastroenteritis A08.4 [facility] [id number] [place] [address] 25817- 5500 March, Viral gastroenteritis A08.4 [facility] [id number] [place] [address] 24533 -4190 Feb, Acute pain of left knee M25.562 [facility] [id number] [place] [address] 49222- 7317 Feb, Viral gastroenteritis A08.4 [facility] [id number] [place] [address] 77608- 9140 Jan, Viral gastroenteritis A08.4 and Controlled type 2 diabetes mellitus without complication, without long-term current use of insulin E11.9 [facility] [address], [place] [address]- 5771 14 Jan, 2017 [facility] [id number] [place] [address] 96825- 0684 16 Dec, 2016 Other chronic pain G89.29 ; Pain in left knee M25.562 ; Controlled type 2 diabetes mellitus without complication, without long-term current use of insulin E11.9 and Acute cystitis with hematuria N30.01 [facility] [id number] [place] [address] 81967- 0998 Dec, [facility] [address] 85266- 3555 Nov, Type 2 diabetes mellitus without complications E11.9 [facility] [id number] [place] [address] 35009- 8769 Nov, [facility] [id number] [place] [address] 30676- 4084 Oct, [facility] [id number] [place] [address] 66912- 5513 Sep, [facility] [id number] [place] [address] 04398- 3701 Aug, [facility] [id number] [place] [address] 65744- 9962 Aug, [facility] [id number] [place] [address] 88722- 5308 Jul, Controlled type 2 diabetes mellitus without complication, without long-term current use of insulin E11.9 ; Callus of foot L84 and URI, acute J06.9 [facility] [id number] [place] [address] 63269- 0987 13 Jul, 2016 [facility] [id number] [place] [address] 29038- 2994 Jun, Onychomycosis B35.1 and Nail ingrowing L60.0 [facility] [id number] [place] [address] 10844- 6661 Jun, [facility] [id number] [place] [address] 70691- 8954 Jun, Lumbar back pain with radiculopathy affecting left lower extremity M54.17 [facility] [id number] [place] [address] 34668- 6340 Jun, [facility] [id number] [place] [address] 99067- 2227 Jun, Other chronic pain G89.29 [facility] [address] 92961- 5970 Jun, Other chronic pain G89.29 [facility] [id number] [place] [address] 35101- 3487 Jun, Type 2 diabetes mellitus without complications E11.9 [facility] [id number] [place] [address] 97198- 7958 Jun, [facility] [id number] [place] [address] 15981- 4235 Jun, Onychomycosis B35.1 ; Callus L84 and Rash R21 [facility] [id number] [place] [address] 27467- 3733 May, [facility] [id number] [place] [address] 71337 2544 May, [facility] [id number] [place] [address] 57698- 2480 May, Type 2 diabetes mellitus without complications E11.9 [facility] [id number] [place] [address] 40188 2544 May, [facility] [id number] [place] [address] 70461- 3723 Apr, [facility] [address] [place] [address]- 4624 Apr, Type 2 diabetes mellitus without complications E11.9 ; Acquired hypothyroidism E03.9 ; Callus of foot L84 and Upper respiratory tract infection, unspecified type J06.9 [facility] [id number] [place] [address] 37107- 3188 March, [facility] [address] 66832- 3056 Feb, [facility] [address] 18329- 7604 Jan, Diabetes mellitus without mention of complication, type II or unspecified type, not stated as uncontrolled 250.00 [facility] [id number] [place] [address] 75566- 8901 Jan, [facility] [id number] [place] [address] 32962- 8062 Jan, Diabetes E11.9 and Hypothyroidism E03.9 [facility] [id number] [place] [address] 71461- 6926 Dec, Diarrhea R19.7 [facility] [id number] [place] [address] 36554- 4175 Dec, [facility] [id number] [place] [address] 28226- 0778 Dec, Hypothyroidism, unspecified E03.9 [facility] [id number] [place] [address] 13389- 2622 Dec, [facility] [id number] [place] [address] 66567- 1411 Dec, Hypothyroidism, unspecified E03.9 [facility] [id number] [place] [address] 92233- 9150 Dec, Diarrhea R19.7 [facility] [id number] [place] [address] 77997- 2546 Dec, Diarrhea R19.7 [facility] [address], [place] [address]- 4644 Nov, [facility] [address] [place] [address] 42737- 2870 Nov, [facility] [address], [place] [address]- 1060 Oct, [facility] [id number] [place] [address] 28578- 6285 Sep, Postnasal drip R09.82 [facility] [id number] [place] [address] 47885- 7538 Sep, [facility] [id number] [place] [address] 20404- 3807 Sep, [facility] [id number] [place] [address] 96906- 6388 Aug, [facility] [id number] [address]- 7869 Aug, [facility] [id number] [place] [address] 60333- 9982 Jul, Hypothyroidism 244.9 [facility] [address], [place] [address]- 1031 Jul, Diabetes mellitus without mention of complication, type II or unspecified type, not stated as uncontrolled 250.00 [facility] [address], [place] [address]- 0892 Jul, [facility] [address] [address]- 3127 Jul, [facility] [address] [place] [address] 50755- 2248 Jun, [facility] [address] [address]- 7992 May, Other chronic pain 338.29 [facility] [address] [address]- 1299 10 May, 2015 Other chronic pain 338.29 [facility] [id number] [place] [address], [place] [address]- 8611 09 May, 2015 [facility] [id number] [address]- 0991 08 May, 2015 [facility] [id number] [place] [address] 36088- 0651 Apr, Rash 782.1 ; Hypercholesterolemia 272.0 and Hypothyroidism 244.9 [facility] [id number] [place] [address] 54644- 3693 Apr, [facility] [id number] [place] [address] 11153- 2667 Apr, [facility] [id number] [place] [address] 98362- 7965 March, [facility] [id number] [place] [address] 69672- 6256 Feb, [facility] [id number] [place] [address] 83746- 8675 Feb, [facility] [id number] [address]- 4630 26 Jan, 2015 [facility] [address], [place] [address]- 4314 Jan, [facility] [address] [address]- 9240 25 Jan, 2015 [facility] [id number] [place] [address] 94497- 2381 13 Jan, 2015 [facility] [id number] [address]- 2080 13 Jan, 2015 [facility] [address], [place] [address]- 1549 11 Jan, 2015 [facility] [place] [facility] [address] [id number] [place] [address]- 4803 Jan, [facility] [place] [facility] [address] [id number] [place] [address]- 0819 Dec, [facility] [place] [facility] [address] [id number] [place] [address]- 4076 Dec, [facility] [place] [facility] [address] [id number] [place] [address]- 5070 Nov, [facility] [place] [facility] [address] [id number] [place] [address]- 5688 Nov, [facility] [place] [facility] [address] [id number] [place] [address]- 6666 Nov, [facility] [place] [facility] [address] [id number] [place] [address]- 9194 Nov, [facility] [place] [facility] [address] [id number] [place] [address]- 3758 Nov, [facility] [place] [facility] [address] [id number] [place] [address]- 2635 Nov, [facility] [place] [facility] [address] [id number] [place] [address]- 9645 Oct, [facility] [place] [facility] [address] [id number] [place] [address]- 0673 Oct, [facility] [place] [facility] [address] [id number] [place] [address]- 6752 Sep, [facility] [place] [facility] [address] [id number] [place] [address]- 9681 Sep, [facility] [place] [facility] [address] [id number] [place] [address]- 8676 Sep, [facility] [place] [facility] [address] [id number] [place] [address]- 6960 Sep, [facility] [place] [facility] [address] [id number] [place] [address]- 3953 Aug, [facility] [place] [facility] [address] [id number] [place] 9934 Aug, [facility] [place] [facility] [address] [id number] [place] [address]- 6856 Jul, [facility] [place] [facility] [address] [id number] [place] [address]- 2177 Jul, [facility] [place] [facility] [address] [id number] [place] [address]- 6685 Jun, [facility] [place] [facility] [address] [id number] [place] [address]- 3035 Jun, [facility] [place] [facility] [address] [id number] [place] [address]- 4468 Jun, [facility] [place] [facility] [address] [id number] [place] [address]- 5206 Jun, [facility] [place] [facility] [address] [id number] [place] [address]- 0862 May, [facility] [place] [facility] [address] [id number] [place] [address]- 6245 May, [facility] [place] [facility] [address] [id number] [place] [address]- 6061 May, [facility] [place] [facility] [address] [id number], [place] [address]- 7709 May, [facility] [place] [facility] [address] [id number], [place] [address]- 1646 Apr, [facility] [place] [facility] [address] [id number] [place] [address]- 5241 Apr, [facility] [place] [facility] [address] [id number] [place] [address]- 4435 March, [facility] [place] [facility] [address] [id number] [place] [address]- 6282 March, [facility] [place] [facility] [address] [id number] [place] [address]- 4708 March, [facility] [place] [facility] [address] [id number] [place] [address]- 3745 March, [facility] [place] [facility] [address] [id number] [place] [address]- 8443 March, [facility] [place] [facility] [address] [id number] [place] [address]- 8554 March, [facility] [place] [facility] [address] [id number] [place] [address]- 2725 Feb, [facility] [place] [facility] [address] [id number] [place] [address]- 1543 Feb, [facility] [place] [facility] [address] [id number] [place] [address]- 7945 Feb, [facility] [place] [facility] [address] [id number] [place] [address]- 5519 Feb, [facility] [place] [facility] [address] [id number] [place] [address]- 0202 Feb, [facility] [place] [facility] [address] [id number] [place] [address]- 8268 Feb, [facility] [place] [facility] [address] [id number] [place] [address]- 1204 Feb, [facility] [place] [facility] [address] [id number] [place] [address]- 3257 Feb, [facility] [place] [facility] [address] [id number] [place] [address]- 7750 Jan, [facility] [place] [facility] [address] [id number] [place] [address]- 5344 Jan, [facility] [place] [facility] [address] [id number] [place] [address]- 2937 Jan, [facility] [place] [facility] [address] [id number] [place] [address]- 8958 Jan, [facility] [place] [facility] [address] [id number] [place] [address]- 1507 Jan, [facility] [place] [facility] [address] [id number] [place] [address]- 2194 Jan, [facility] [place] [facility] [address] [id number] [place] [address] Jan, [facility] [place] [facility] [address] [id number] [place] [address] Jan, [facility] [place] [facility] [address] [id number] [place] [address] Jan, [facility] [place] [facility] [address] [id number] [place] [address] Dec, [facility] [place] [facility] [address] [id number] [place] [address] Dec, [facility] [place] [facility] [address] [id number] [place] [address] Nov, [facility] [place] [facility] [address] [id number] [place] [address] Nov, [facility] [place] [facility] [address] [id number] [place] [address] Nov, [facility] [place] [facility] [address] [id number] [place] [address] Nov, [facility] [place] [facility] [address] [id number] [place] [address] Nov, [facility] [place] [facility] [address] [id number] [place] [address] Nov, [facility] [place] [facility] [address] [id number] [place] [address] Oct, [facility] [place] [facility] [address] [id number] [place] [address] Oct, [facility] [place] [facility] [address] [id number], [place] [address] Sep, [facility] [place] [facility] [address] [id number] [place] [address] Sep, [facility] [place] [facility] [address] [id number] [place] [address] Sep, [facility] [place] [facility] [address] [id number] [place] [address] Sep, [facility] [place] [facility] [address] [id number] [place] [address] Sep, [facility] [place] [facility] [address] [id number] [place] [address] Sep, [facility] [place] [facility] [address] [id number] [place] [address] Sep, [facility] [place] [facility] [address] [facility] [id number] [place] [address] Sep, [facility] [place] [facility] [address] [id number] [place] [address] Aug, [facility] [place] [facility] [address] [id number] [place] [address] Aug, [facility] [place] [facility] [address] [facility] [id number] [place] [address] Aug, [facility] [place] [facility] [address] [id number], [place] [address] Jul, [facility] [place] [facility] [address] [id number] [place] [address] Jul, [facility] [place] [facility] [address] [id number] [place] [address] Jul, [facility] [place] [facility] [address] [id number] [place] [address] Jun, [facility] [place] [facility] [address] [facility] [id number] [place] [address] Jun, [facility] [place] [facility] [address] [id number] [place] [address] Jun, [facility] [address] [id number] [place] [address] Jun, [facility] [place] [facility] [address] [id number] [place] [address] Jun, [facility] [place] [facility] [address] [id number] [place] [address] Jun, [facility] [place] [facility] [address] [address] [id number] [place] [address] May, [facility] [place] [facility] [address] [id number] [place] [address] May, [facility] [place] [facility] [address] [id number] [place] [address] Apr, [facility] [place] [facility] [address] [id number] [place] [address] Apr, [facility] [address] [id number] [place] [address] March, [facility] [place] [facility] [address] [id number] [place] [address] Feb, [facility] [place] [facility] [address] [id number] [place] [address] Feb, [facility] [place] [facility] [address] [id number] [place] [address] 16 Feb, 2013 [facility] [place] [facility] [address] [id number] [place] [address] Feb, [facility] [place] [facility] [address] [id number] [place] [address] Jan, [facility] [place] [facility] [address] [id number] [place] [address] Jan, [facility] [place] [facility] [address] [id number] [place] [address] Jan, [facility] [place] [facility] [address] [id number] [place] [address] Jan, [facility] [place] [facility] [address] [id number] [place] [address] Jan, [facility] [place] [facility] [address] [id number] [place] [address] Dec, [facility] [place] [facility] [address] [id number] [place] [address] Nov, [facility] [place] [facility] [address] [id number] [place] [address] Nov, [facility] [place] [facility] [address] [id number] [place] [address] Oct, [facility] [place] [facility] [address] [id number] [place] [address] Oct, [facility] [place] [facility] [address] [id number] [place] [address] Oct, [facility] [place] [facility] [address] [id number] [place] [address] Oct, [facility] [place] [facility] [address] [id number] [place] [address] Oct, [facility] [place] [facility] [address] [id number], [place] [address] Oct, [facility] [place] [facility] [address] [id number], [place] [address] Oct, [facility] [place] [facility] [address] [id number] [place] [address] Oct, [facility] [place] [facility] [address] [id number] [place] [address] Aug, [facility] [place] [facility] [address] [id number] [place] [address] Aug, [facility] [place] [facility] [address] [id number] [place] [address] 26 Aug, 2012 [facility] [place] [facility] [address] [id number] [place] [address] 26 Aug, 2012 [facility] [place] [facility] [address] [id number] [place] [address]- 9766 19 Aug, 2012 [facility] [place] [facility] [address] [id number] [place] [address] 39[address] 19 Aug, 2012 [facility] [place] [facility] [address] [id number] [place] [address] 15 Aug, 2012 [facility] [place] [facility] [address] [id number] [place] [address] 27 Jul, 2012 [facility] [place] [facility] [address] [id number] [place] [address] 27 Jul, 2012 [facility] [place] [facility] [address] [id number] [place] [address] 27 Jul, 2012 [facility] [place] [facility] [address] [id number] [place] [address] 27 Jul, 2012 [facility] [place] [facility] [address] [id number] [place] [address] 03 Jul, 2012 [facility] [place] [facility] [address] [id number] [place] [address] 28 Jun, 2012 [facility] [place] [facility] [address] [id number] [place] [address] Jun, [facility] [place] [facility] [address] [id number] [place] [address] Jun, [facility] [place] [facility] [address] [id number] [place] [address] May, [facility] [place] [facility] [address] [id number] [place] [address] May, [facility] [place] [facility] [address] [id number] [place] [address] May, [facility] [place] [facility] [address] [id number] [place] [address] May, [facility] [place] [facility] [address] [id number] [place] [address]686 May, [facility] [place] [facility] [address] [id number] [place] [address] May, [facility] [place] [facility] [address] [id number] [place] [address] May, [facility] [address] [id number] [place] [address] Apr, [facility] [place] [facility] [address] [id number] [place] [address] 9034 Apr, [facility] [place] [facility] [address] [id number] [place] [address] March, [facility] [place] [facility] [address] [id number] [place] [address] 4[address] Feb, [facility] [place] [facility] [address] [id number] [place] [address] 49[address] Jan, [facility] [place] [facility] [address] [id number] [place] [address]- 4780 Jan, [facility] [place] [facility] [address] [id number] [place] [address]- 6695 Jan, [facility] [place] [facility] [address] [id number] [place] [address]- [address]35 Jan, [facility] [place] [facility] [address] [id number] [place] [address] 1769 Jan, [facility] [place] [facility] [address] [id number] [place] [address] Jan, [facility] [place] [facility] [address] [id number] [place] [address] 3468 Jan, [facility] [place] [facility] [address] [id number] [place] [address]- 386[address] Jan, [facility] [place] [facility] [address] [id number] [place] [address] Jan, [facility] [place] [facility] [address] [id number] [place] [address]6 Jan, [facility] [place] [facility] [address] [id number] [place] [address]- 68[address] Dec, [facility] [place] [facility] [address] [id number] [place] [address]- [address]383 Dec, [facility] [place] [facility] [address] [id number] [place] [address]- 7869 Dec, [facility] [place] [facility] [address] [id number] [place] [address]- 4986 Dec, [facility] [address] [facility] [id number] [place] [address]- 7835 Dec, [facility] [place] [facility] [address] [id number] [place] [address]- [address]393 Dec, [facility] [place] [facility] [address] [id number] [place] [address]- 4283 Dec, [facility] [place] [facility] [address] [facility] [id number] [place] [address]- 8718 Dec, [facility] [place] [facility] [address] [facility] [id number] [place] [address]- 4719 Nov, [facility] [place] [facility] [address] [id number] [place] [address] 2547 29 Nov, 2011 [facility] [place] [facility] [address] [id number] [place] [address]- 0456 Nov, [facility] [place] [facility] [address] [facility] [id number] [place] [address]- 6236 Oct, [facility] [place] [facility] [address] [facility] [id number] [place] [address] 14 Oct, 2011 [facility] [address] [facility] [id number] [place] [address] Oct, [facility] [address] [facility] [id number], [place] [address] Oct, [facility] [address] [facility] [id number][place] [address] Sep, IMMUNIZATIONS No Known Immunizations SOCIAL HISTORY Never Assessed REASON FOR VISIT Lab (walk-in) PLAN OF CARE VITAL SIGNS MEDICATIONS Unknown Medications RESULTS No Results PROCEDURES Procedure Date Ordered Result Body Site LAB NOT BILLED BY [facility] Jul 19, 2018 INSTRUCTIONS MEDICATIONS ADMINISTERED No Known Medications [...] intraocular lens prosthesis Hospitalization History [facility]itis then went into cardiac arrest and was resuscitated. She was in the hospital for 7 days. 2012 Hospitalization History surgeries
--- OUTSIDE RECORDS SUMMARY | 2019-01-07 23:48 | XMS REPORT ---
Author Author NALINI GOMEZ Organization [facility] Address [address] [place] [address] Care Team Providers Care Ball Holder Name Role Phone NALINI GOMEZ Unavailable PROBLEMS Type Condition ICD9-CM Code RTV87-ME Code Onset Dates Condition Status SNOMED Code Problem Hypothyroidism, unspecified E03.9 Active 64324215 Problem Hypothyroidism (acquired) E03.9 Active 08057179 Problem Acquired hypothyroidism E03.9 Active 204342885 Problem Other chronic pain G89.29 Active 18750208 Problem Hypertension, benign I10 Active 60014646 Problem Episode of recurrent major depressive disorder, unspecified depression episode severity F33.9 Active 323789345 Problem Mixed hyperlipidemia E78.2 Active 088383428 Problem Stress incontinence of urine N39.3 Active 35393502 Problem Urinary, incontinence, stress female N39.3 Active 65518944 Problem Hypercholesterolemia 272.0 Active 46500247 Problem Type 2 diabetes mellitus without complications E11.9 Active 404697211 Problem Other chronic pain G89.29 Active 76280644 Problem Panlobular emphysema J43.1 Active 8730922 Problem Controlled type 2 diabetes mellitus without complication, without long -term current use of insulin E11.9 Active 132830642 ALLERGIES No Information ENCOUNTERS Encounter Location Date Diagnosis [facility] [id number] [place] [address] 79421- 5840 Jul, Stress incontinence of urine N39.3 [facility] [address], [place] [address] 7275 Jun, [facility] [id number] [place] [address] 28405- 1914 Jun, Other chronic pain G89.29 [facility] [address] [address] 4614 Jun, Other chronic pain G89.29 [facility] [id number] [place] [address] 39876- 1450 Jun, Stress incontinence of urine N39.3 ; Controlled type 2 diabetes mellitus without complication, without long-term current use of insulin E11.9 and Hypertension, benign I10 [facility] [id number] [place] [address] 87194- 4068 Jun, [facility] [address] 29998- 4333 Jun, [facility] [address] 05326- 7803 May, [facility] [address] 29915- 7192 May, Viral gastroenteritis A08.4 [facility] [id number] [place] [address] 80619- 8818 May, Acute diffuse otitis externa of left ear H60.312 and Acquired hypothyroidism E03.9 [facility] [id number] [place] [address] 22208- 0673 May, Episode of recurrent major depressive disorder, unspecified depression episode severity F33.9 ; Urinary, incontinence, stress female N39.3 ; Mixed hyperlipidemia E78.2 and Hypothyroidism (acquired) E03.9 [facility] [id number] [place] [address] 25030- 9621 May, [facility] [id number] [place] [address] 27105- 7750 May, Viral gastroenteritis A08.4 [facility] [id number] [place] [address] 27370- 6306 Apr, Acute diffuse otitis externa of left ear H60.312 and Hypothyroidism (acquired) E03.9 [facility] [id number] [place] [address] 22508- 9158 Apr, Viral gastroenteritis A08.4 and Acquired hypothyroidism E03.9 [facility] [id number] [place] [address] 52358- 9811 Apr, Type 2 diabetes mellitus without complications E11.9 and Panlobular emphysema J43.1 [facility] [id number] [place] [address] 45617- 2397 Apr, Viral gastroenteritis A08.4 [facility] [id number] [place] [address] 41169- 1337 March, [facility] [address] 85202- 2374 March, Viral gastroenteritis A08.4 [facility] [address] 28250- 1218 Feb, Panlobular emphysema J43.1 [facility] [id number] [place] [address] 18288- 9478 Feb, Panlobular emphysema J43.1 [facility] [id number] [place] [address] 34436- 2833 Feb, [facility] [id number] [place] [address] 94671- 0508 Feb, [facility] [id number] [place] [address] 46068- 3403 Feb, Viral gastroenteritis A08.4 [facility] [id number] [place] [address] 74806- 3165 Feb, Head lice B85.0 [facility] [id number] [place] [address] 94447- 6700 Feb, Medicare annual wellness visit, initial Z00.00 ; Head lice B85.0 ; Tinea corporis B35.4 and Enlarged lymph node R59.9 [facility] [address] [place] [address] 24945- 6337 Jan, Viral gastroenteritis A08.4 [facility] [id number] [place] [address] 64396- 9907 Jan, [facility] [id number] [place] [address] 26440- 5336 Dec, Controlled type 2 diabetes mellitus without complication, without long-term current use of insulin E11.9 [facility] [id number] [place] [address] 61163- 8009 Dec, [facility] [address] 62850- 9928 Dec, Viral gastroenteritis A08.4 [facility] [address] 47870- 3409 Nov, Viral gastroenteritis A08.4 [facility] [id number] [place] [address] 97989- 3483 Oct, Acute upper respiratory infection, unspecified J06.9 and Other viral agents as the cause of diseases classified elsewhere B97.89 [facility] [id number] [place] [address] 45965- 1994 Oct, Viral gastroenteritis A08.4 [facility] [id number] [place] [address] 87707- 6141 Oct, Controlled type 2 diabetes mellitus without complication, without long-term current use of insulin E11.9 ; Encounter for immunization Z23 and Acute pain of left foot M79.672 [facility] [id number] [place] [address] 93330- 6047 Sep, Viral gastroenteritis A08.4 [facility] [id number] [place] [address] 11695- 3528 Aug, Viral gastroenteritis A08.4 [facility] [address] 67961- 2939 Jul, Viral gastroenteritis A08.4 [facility] [id number] [place] [address] 18257 -2083 Jul, Acute nasopharyngitis (common cold) J00 [facility] [id number] [place] [address] 88620- 1094 Jun, Viral gastroenteritis A08.4 [facility] [id number] [place] [address] 20582- 0169 Jun, [facility] [id number] [place] [address] 58501- 6889 Jun, Viral gastroenteritis A08.4 [facility] [id number] [place] [address] 34323- 8429 May, Patellar tendinitis, left knee M76.52 [facility] [id number] [place] [address] 80324- 4965 May, Viral gastroenteritis A08.4 [facility] [id number] [place] [address] 88553- 9484 Apr, Viral gastroenteritis A08.4 and Hypothyroidism, unspecified E03.9 [facility] [id number] [place] [address] 02300- 9497 Apr, Pain in left knee M25.562 ; Acute left-sided low back pain without sciatica M54.5 and Type 2 diabetes mellitus without complications E11.9 [facility] [id number] [place] [address] 02776- 2769 Apr, Viral gastroenteritis A08.4 [facility] [id number] [place] [address] 98649- 6245 March, Viral gastroenteritis A08.4 [facility] [address] [place] [address] 21290 -6813 Feb, Acute pain of left knee M25.562 [facility] [id number] [place] [address] 00184- 6416 Feb, Viral gastroenteritis A08.4 [facility] [id number] [place] [address] 97313- 9242 Jan, Viral gastroenteritis A08.4 and Controlled type 2 diabetes mellitus without complication, without long-term current use of insulin E11.9 [facility] [address], [place] [address]- 0601 14 Jan, 2017 [facility] [id number] [place] [address] 43572- 8616 16 Dec, 2016 Other chronic pain G89.29 ; Pain in left knee M25.562 ; Controlled type 2 diabetes mellitus without complication, without long-term current use of insulin E11.9 and Acute cystitis with hematuria N30.01 [facility] [id number] [place] [address] 59997- 8535 Dec, [facility] [address] 06130- 2819 Nov, Type 2 diabetes mellitus without complications E11.9 [facility] [id number] [place] [address] 70180- 9662 Nov, [facility] [id number] [place] [address] 65303- 7529 Oct, [facility] [id number] [place] [address] 64912- 5133 Sep, [facility] [id number] [place] [address] 99677- 5696 Aug, [facility] [id number] [place] [address] 52804- 6820 Aug, [facility] [id number] [place] [address] 91894- 6536 Jul, Controlled type 2 diabetes mellitus without complication, without long-term current use of insulin E11.9 ; Callus of foot L84 and URI, acute J06.9 [facility] [id number] [place] [address] 94646- 6401 13 Jul, 2016 [facility] [id number] [place] [address] 09253- 4885 Jun, Onychomycosis B35.1 and Nail ingrowing L60.0 [facility] [id number] [place] [address] 35070- 5428 Jun, [facility] [id number] [place] [address] 59498- 3593 Jun, Lumbar back pain with radiculopathy affecting left lower extremity M54.17 [facility] [id number] [place] [address] 74773- 9967 Jun, [facility] [id number] [place] [address] 44429- 9005 Jun, Other chronic pain G89.29 [facility] [address] 87328- 1481 Jun, Other chronic pain G89.29 [facility] [id number] [place] [address] 41039- 0499 Jun, Type 2 diabetes mellitus without complications E11.9 [facility] [id number] [place] [address] 12214- 2451 Jun, [facility] [id number] [place] [address] 92786- 7814 Jun, Onychomycosis B35.1 ; Callus L84 and Rash R21 [facility] [id number] [place] [address] 95751- 0940 May, [facility] [id number] [place] [address] 19357 2549 May, [facility] [id number] [place] [address] 28163- 8777 May, Type 2 diabetes mellitus without complications E11.9 [facility] [id number] [place] [address] 96078 2543 May, [facility] [id number] [place] [address] 20057- 5043 Apr, [facility] [address] [place] [address]- 1589 Apr, Type 2 diabetes mellitus without complications E11.9 ; Acquired hypothyroidism E03.9 ; Callus of foot L84 and Upper respiratory tract infection, unspecified type J06.9 [facility] [id number] [place] [address] 16618- 9654 March, [facility] [address] 49614- 9242 Feb, [facility] [address] 70815- 6899 Jan, Diabetes mellitus without mention of complication, type II or unspecified type, not stated as uncontrolled 250.00 [facility] [id number] [place] [address] 43670- 8259 Jan, [facility] [id number] [place] [address] 49713- 4343 Jan, Diabetes E11.9 and Hypothyroidism E03.9 [facility] [id number] [place] [address] 37668- 8305 Dec, Diarrhea R19.7 [facility] [id number] [place] [address] 26856- 9970 Dec, [facility] [id number] [place] [address] 93802- 5353 Dec, Hypothyroidism, unspecified E03.9 [facility] [id number] [place] [address] 61755- 7729 Dec, [facility] [id number] [place] [address] 22101- 5513 Dec, Hypothyroidism, unspecified E03.9 [facility] [id number] [place] [address] 08693- 9849 Dec, Diarrhea R19.7 [facility] [id number] [place] [address] 81009- 2546 Dec, Diarrhea R19.7 [facility] [address], [place] [address]- 9630 Nov, [facility] [address] [place] [address] 02069- 5638 Nov, [facility] [address], [place] [address]- 4502 Oct, [facility] [id number] [place] [address] 81288- 9682 Sep, Postnasal drip R09.82 [facility] [id number] [place] [address] 34085- 5938 Sep, [facility] [id number] [place] [address] 41257- 7583 Sep, [facility] [id number] [place] [address] 50013- 9196 Aug, [facility] [address] [address]- 9594 Aug, [facility] [id number] [place] [address] 54072- 4254 Jul, Hypothyroidism 244.9 [facility] [address], [place] [address]- 4785 Jul, Diabetes mellitus without mention of complication, type II or unspecified type, not stated as uncontrolled 250.00 [facility] [address], [place] [address]- 2718 Jul, [facility] [address], [place] [address]- 1420 Jul, [facility] [address] [place] [address] 63183- 9138 Jun, [facility] [address], [place] [address]- 5521 May, Other chronic pain 338.29 [facility] [address], [place] [address]- 2683 10 May, 2015 Other chronic pain 338.29 [facility] [id number] [place] [address], [place] [address]- 7152 09 May, 2015 [facility] [address] [address]- 1091 08 May, 2015 [facility] [id number] [place] [address] 53288- 1195 Apr, Rash 782.1 ; Hypercholesterolemia 272.0 and Hypothyroidism 244.9 [facility] [id number] [place] [address] 04433- 8139 Apr, [facility] [id number] [place] [address] 23124- 6161 Apr, [facility] [id number] [place] [address] 14089- 7443 March, [facility] [id number] [place] [address] 58266- 9022 Feb, [facility] [id number] [place] [address] 55624- 9070 Feb, [facility] [address] [address]- 7830 26 Jan, 2015 [facility] [address], [place] [address]- 6061 Jan, [facility] [address], [place] [address]- 5587 25 Jan, 2015 [facility] [address] [place] [address] 01012- 4289 13 Jan, 2015 [facility] [address] [address]- 0357 13 Jan, 2015 [facility] [address], [place] [address]- 2648 11 Jan, 2015 [facility] [place] [facility] [address] [id number] [place] [address]- 9227 Jan, [facility] [place] [facility] [address] [id number] [place] [address]- 3612 Dec, [facility] [place] [facility] [address] [id number] [place] [address]- 2826 Dec, [facility] [place] [facility] [address] [id number] [place] [address]- 2928 Nov, [facility] [place] [facility] [address] [id number] [place] [address]- 5879 Nov, [facility] [place] [facility] [address] [id number] [place] [address]- 6941 Nov, [facility] [place] [facility] [address] [id number] [place] [address]- 9003 Nov, [facility] [place] [facility] [address] [id number] [place] [address]- 7020 Nov, [facility] [place] [facility] [address] [id number] [place] [address]- 2148 Nov, [facility] [place] [facility] [address] [id number] [place] [address]- 6086 Oct, [facility] [place] [facility] [address] [id number] [place] [address]- 1553 Oct, [facility] [place] [facility] [address] [id number] [place] [address]- 9607 Sep, [facility] [place] [facility] [address] [id number] [place] [address]- 9480 Sep, [facility] [place] [facility] [address] [id number] [place] [address]- 8047 Sep, [facility] [place] [facility] [address] [id number] [place] [address]- 4251 Sep, [facility] [place] [facility] [address] [id number] [place] [address]- 8811 Aug, [facility] [place] [facility] [address] [id number] [place] 9206 Aug, [facility] [place] [facility] [address] [id number] [place] [address]- 1543 Jul, [facility] [place] [facility] [address] [id number] [place] [address]- 6432 Jul, [facility] [place] [facility] [address] [id number] [place] [address]- 5541 Jun, [facility] [place] [facility] [address] [id number] [place] [address]- 1444 Jun, [facility] [place] [facility] [address] [id number] [place] [address]- 6414 Jun, [facility] [place] [facility] [address] [id number] [place] [address]- 5310 Jun, [facility] [place] [facility] [address] [id number] [place] [address]- 9883 May, [facility] [place] [facility] [address] [id number] [place] [address]- 4344 May, [facility] [place] [facility] [address] [id number] [place] [address]- 8640 May, [facility] [place] [facility] [address] [id number] [address]- 7304 May, [facility] [place] [facility] [address] [id number], [place] [address]- 4642 Apr, [facility] [place] [facility] [address] [id number] [place] [address]- 1073 Apr, [facility] [place] [facility] [address] [id number] [place] [address]- 3019 March, [facility] [place] [facility] [address] [id number] [place] [address] March, [facility] [place] [facility] [address] [id number] [place] [address]- 8385 March, [facility] [place] [facility] [address] [id number] [place] [address]- 2364 March, [facility] [place] [facility] [address] [id number] [place] [address]- 2088 March, [facility] [place] [facility] [address] [id number] [place] [address]- 0134 March, [facility] [place] [facility] [address] [id number] [place] [address]- 0005 Feb, [facility] [place] [facility] [address] [id number] [place] [address]- 3163 Feb, [facility] [place] [facility] [address] [id number] [place] [address]- 2385 Feb, [facility] [place] [facility] [address] [id number] [place] [address]- 3447 Feb, [facility] [place] [facility] [address] [id number] [place] [address]- 8202 Feb, [facility] [place] [facility] [address] [id number] [place] [address]- 2038 Feb, [facility] [place] [facility] [address] [id number] [place] [address]- 3948 Feb, [facility] [place] [facility] [address] [id number] [place] [address]- 5337 Feb, [facility] [place] [facility] [address] [id number] [place] [address]- 0101 Jan, [facility] [place] [facility] [address] [id number] [place] [address]- 6547 Jan, [facility] [place] [facility] [address] [id number] [place] [address] Jan, [facility] [place] [facility] [address] [id number] [place] [address] Jan, [facility] [place] [facility] [address] [id number] [place] [address] Jan, [facility] [place] [facility] [address] [id number] [place] [address] Jan, [facility] [place] [facility] [address] [id number] [place] [address] Jan, [facility] [place] [facility] [address] [id number] [place] [address] Jan, [facility] [place] [facility] [address] [id number] [place] [address] Jan, [facility] [place] [facility] [address] [id number] [place] [address] Dec, [facility] [place] [facility] [address] [id number] [place] [address] Dec, [facility] [place] [facility] [address] [id number] [place] [address] Nov, [facility] [place] [facility] [address] [id number] [place] [address] Nov, [facility] [place] [facility] [address] [id number] [place] [address] Nov, [facility] [place] [facility] [address] [id number] [place] [address] Nov, [facility] [place] [facility] [address] [id number] [place] [address] Nov, [facility] [place] [facility] [address] [id number] [place] [address] Nov, [facility] [place] [facility] [address] [id number] [place] [address] Oct, [facility] [place] [facility] [address] [id number] [place] [address] Oct, [facility] [place] [facility] [address] [id number], [place] [address] Sep, [facility] [place] [facility] [address] [id number] [place] [address] Sep, [facility] [place] [facility] [address] [id number] [place] [address] Sep, [facility] [place] [facility] [address] [id number] [place] [address] Sep, [facility] [place] [facility] [address] [id number] [place] [address] Sep, [facility] [place] [facility] [address] [id number] [place] [address] Sep, [facility] [place] [facility] [address] [id number] [place] [address] Sep, [facility] [place] [facility] [address] [facility] [id number] [place] [address] Sep, [facility] [place] [facility] [address] [id number] [place] [address] Aug, [facility] [place] [facility] [address] [id number] [place] [address] Aug, [facility] [place] [facility] [address] [facility] [id number] [place] [address] Aug, [facility] [place] [facility] [address] [id number], [place] [address] Jul, [facility] [place] [facility] [address] [id number] [place] [address] Jul, [facility] [place] [facility] [address] [id number] [place] [address] Jul, [facility] [place] [facility] [address] [id number] [place] [address] Jun, [facility] [place] [facility] [address] [facility] [id number] [place] [address] Jun, [facility] [place] [facility] [address] [id number] [place] [address] Jun, [facility] [address] [id number] [place] [address] Jun, [facility] [place] [facility] [address] [id number] [place] [address] Jun, [facility] [place] [facility] [address] [id number] [place] [address] Jun, [facility] [place] [facility] [address] [id number] [place] [address] May, [facility] [place] [facility] [address] [id number] [place] [address] 2010 May[facility] [place] [facility] [address] [address] [id number] [place] [address] Apr, [facility] [place] [facility] [address] [id number] [place] [address] Apr, [facility] [address] [id number] [place] [address] March, [facility] [place] [facility] [address] [id number] [place] [address] Feb, [facility] [place] [facility] [address] [id number] [place] [address] Feb, [facility] [place] [facility] [address] [id number] [place] [address] 16 Feb, 2013 [facility] [place] [facility] [address] [id number] [place] [address] Feb, [facility] [place] [facility] [address] [id number] [place] [address] Jan, [facility] [place] [facility] [address] [id number] [place] [address] Jan, [facility] [place] [facility] [address] [id number] [place] [address] Jan, [facility] [place] [facility] [address] [id number] [place] [address] Jan, [facility] [place] [facility] [address] [id number] [place] [address] Jan, [facility] [place] [facility] [address] [id number] [place] [address] Dec, [facility] [place] [facility] [address] [id number] [place] [address] Nov, [facility] [place] [facility] [address] [id number] [place] [address] Nov, [facility] [place] [facility] [address] [id number] [place] [address] Oct, [facility] [place] [facility] [address] [id number] [place] [address] Oct, [facility] [place] [facility] [address] [id number] [place] [address] Oct, [facility] [place] [facility] [address] [id number] [place] [address]24 Oct, [facility] [place] [facility] [address] [id number] [place] [address] Oct, [facility] [place] [facility] [address] [id number], [place] [address] Oct, [facility] [place] [facility] [address] [id number], [place] [address] Oct, [facility] [place] [facility] [address] [id number] [place] [address] Oct, [facility] [place] [facility] [address] [id number] [place] [address] Aug, [facility] [place] [facility] [address] [id number] [place] [address] Aug, [facility] [place] [facility] [address] [id number] [place] [address] 26 Aug, 2012 [facility] [place] [facility] [address] [id number] [place] [address] 26 Aug, 2012 [facility] [place] [facility] [address] [id number] [place] [address] 19 Aug, 2012 [facility] [place] [facility] [address] [id number] [place] [address] 19 Aug, 2012 [facility] [place] [facility] [address] [id number] [place] [address]- [address] 15 Aug, 2012 [facility] [place] [facility] [address] [id number] [place] [address] 27 Jul, 2012 [facility] [place] [facility] [address] [id number] [place] [address] 27 Jul, 2012 [facility] [place] [facility] [address] [id number] [place] [address] 27 Jul, 2012 [facility] [place] [facility] [address] [id number] [place] [address]758 27 Jul, 2012 [facility] [place] [facility] [address] [id number] [place] [address] 03 Jul, 2012 [facility] [place] [facility] [address] [id number] [place] [address]37 28 Jun, 2012 [facility] [place] [facility] [address] [id number] [place] [address] Jun, [facility] [place] [facility] [address] [id number] [place] [address] Jun, [facility] [place] [facility] [address] [id number] [place] [address] May, [facility] [place] [facility] [address] [id number] [place] [address] 28[address] May, [facility] [place] [facility] [address] [id number] [place] [address]39 May, [facility] [place] [facility] [address] [id number] [place] [address] May, [facility] [place] [facility] [address] [id number] [place] [address]- 87[address] May, [facility] [place] [facility] [address] [id number] [place] [address] May, [facility] [place] [facility] [address] [id number] [place] [address]- [address] May, [facility] [address] [id number] [place] [address]68 Apr, [facility] [place] [facility] [address] [id number] [place] [address] Apr, [facility] [place] [facility] [address] [id number] [place] [address]160 March, [facility] [place] [facility] [address] [id number] [place] [address] 48[address] Feb, [facility] [place] [facility] [address] [id number] [place] [address] Jan, [facility] [place] [facility] [address] [id number] [place] [address]- 77[address] Jan, [facility] [place] [facility] [address] [id number] [place] [address] Jan, [facility] [place] [facility] [address] [id number] [place] [address]- [address] Jan, [facility] [place] [facility] [address] [id number] [place] [address]- 2860 Jan, [facility] [place] [facility] [address] [id number] [place] [address]39 Jan, [facility] [place] [facility] [address] [id number] [place] [address]- [address]706 Jan, [facility] [place] [facility] [address] [id number] [place] [address]- [address]144 Jan, [facility] [place] [facility] [address] [id number] [place] [address]- [address] Jan, [facility] [place] [facility] [address] [id number] [place] [address]- [address]706 Jan, [facility] [place] [facility] [address] [id number] [place] [address]- 0266 Dec, [facility] [place] [facility] [address] [id number] [place] [address]- 3464 Dec, [facility] [place] [facility] [address] [id number] [place] [address]- 3721 Dec, [facility] [place] [facility] [address] [id number] [place] [address]- [address]606 Dec, [facility] [address] [facility] [id number] [place] [address]- [address] Dec, [facility] [place] [facility] [address] [id number] [place] [address]- 9746 Dec, [facility] [place] [facility] [address] [id number] [place] [address]- 0383 Dec, [facility] [place] [facility] [address] [facility] [id number] [place] [address]- 7697 Dec, [facility] [place] [facility] [address] [facility] [id number] [place] [address]- 3964 Nov, [facility] [place] [facility] [address] [id number] [place] [address] 2543 29 Nov, 2011 [facility] [place] [facility] [address] [id number] [place] [address]- 4726 Nov, [facility] [place] [facility] [address] [facility] [id number] [place] [address]- 8886 Oct, [facility] [place] [facility] [address] [facility] [id number] [place] Oct, [facility] [address] [facility] [id number] [place] [address] 2763 Oct, [facility] [address] [facility] [id number] [place] [address] Oct, [facility] [address] [facility] [id number] [place] [address] Sep, IMMUNIZATIONS No Known Immunizations SOCIAL HISTORY Never Assessed REASON FOR VISIT Requests return call PLAN OF CARE VITAL SIGNS MEDICATIONS Unknown [...] intraocular lens prosthesis Hospitalization History admitted to [facility] for bronchitis then went into cardiac arrest and was resuscitated. She was in the hospital for 7 days. 2012 Hospitalization History surgeries
--- OUTSIDE RECORDS SUMMARY | 2019-01-07 23:49 | XMS REPORT ---
Author Author NALINI GOMEZ Organization [facility] Address [address] [place] [address] Care Team Providers Care Transportation Inspector Name Role Phone NALINI GOMEZ Unavailable PROBLEMS Type Condition ICD9-CM Code RJP31-LQ Code Onset Dates Condition Status SNOMED Code Problem Hypothyroidism, unspecified E03.9 Active 23944312 Problem Hypothyroidism (acquired) E03.9 Active 65546170 Problem Acquired hypothyroidism E03.9 Active 375248435 Problem Other chronic pain G89.29 Active 47364192 Problem Hypertension, benign I10 Active 11870225 Problem Episode of recurrent major depressive disorder, unspecified depression episode severity F33.9 Active 408090391 Problem Mixed hyperlipidemia E78.2 Active 614870669 Problem Stress incontinence of urine N39.3 Active 40740887 Problem Urinary, incontinence, stress female N39.3 Active 23721856 Problem Hypercholesterolemia 272.0 Active 17735205 Problem Type 2 diabetes mellitus without complications E11.9 Active 542380023 Problem Other chronic pain G89.29 Active 82914161 Problem Panlobular emphysema J43.1 Active 2567307 Problem Controlled type 2 diabetes mellitus without complication, without long -term current use of insulin E11.9 Active 903988209 ALLERGIES No Information ENCOUNTERS Encounter Location Date Diagnosis [facility] [id number] [address] Jun, [facility] [address], [place] [address] Jun, Other chronic pain G89.29 [facility] [id number] [place] [address] 09603- 8641 Jun, Other chronic pain G89.29 [facility] [id number] [address] Jun, Stress incontinence of urine N39.3 ; Controlled type 2 diabetes mellitus without complication, without long-term current use of insulin E11.9 and Hypertension, benign I10 [place] [id number] [place] [address] 43835- 4380 Jun, [place] [address] 89689- 0264 Jun, [place] [address] 49326- 0201 May, [place] [address] 09090- 2918 May, Viral gastroenteritis A08.4 [place] [address] 71428- 1362 May, Acute diffuse otitis externa of left ear H60.312 and Acquired hypothyroidism E03.9 [place] [place] [address] 11819- 0191 May, Episode of recurrent major depressive disorder, unspecified depression episode severity F33.9 ; Urinary, incontinence, stress female N39.3 ; Mixed hyperlipidemia E78.2 and Hypothyroidism (acquired) E03.9 [place] [id number] [place] [address] 69052- 5216 May, [place] [address] 85508- 0735 May, Viral gastroenteritis A08.4 [place] [address] 90425- 7273 Apr, Acute diffuse otitis externa of left ear H60.312 and Hypothyroidism (acquired) E03.9 [place] [address] 77210- 3215 Apr, Viral gastroenteritis A08.4 and Acquired hypothyroidism E03.9 [facility] [place] [id number] [place] [address] 54282- 0933 Apr, Type 2 diabetes mellitus without complications E11.9 and Panlobular emphysema J43.1 [facility] [id number] [place] [address] 61872- 9104 Apr, Viral gastroenteritis A08.4 [facility] [address] 59391- 1338 March, [facility] [address] 26182- 8244 March, Viral gastroenteritis A08.4 [facility] [address] 29226- 2368 Feb, Panlobular emphysema J43.1 [facility] [address] 31602- 0343 Feb, Panlobular emphysema J43.1 [place] [address] 48507- 9377 Feb, [facility] [address] 08156- 0488 Feb, [facility] [id number] [place] [address] 46110- 0536 Feb, Viral gastroenteritis A08.4 [place] [id number] [place] [address] 38041- 9922 Feb, Head lice B85.0 [place] [id number] [place] [address] 33598- 5467 Feb, Medicare annual wellness visit, initial Z00.00 ; Head lice B85.0 ; Tinea corporis B35.4 and Enlarged lymph node R59.9 [place] [id number] [place] [address] 36864- 5587 Jan, Viral gastroenteritis A08.4 [facility] [id number] [place] [address] 30369- 1208 Jan, [facility] [address] 53406- 3719 Dec, Controlled type 2 diabetes mellitus without complication, without long-term current use of insulin E11.9 [place] [address] 82359- 9235 Dec, [place] [address] 34641- 4605 Dec, Viral gastroenteritis A08.4 [place] [address] 23434- 0080 Nov, Viral gastroenteritis A08.4 [place] [address] 26577- 7397 Oct, Acute upper respiratory infection, unspecified J06.9 and Other viral agents as the cause of diseases classified elsewhere B97.89 [place] [address] 04561- 3456 Oct, Viral gastroenteritis A08.4 [place] [address] 36241- 9272 Oct, Controlled type 2 diabetes mellitus without complication, without long-term current use of insulin E11.9 ; Encounter for immunization Z23 and Acute pain of left foot M79.672 [place] [address] 63999- 9526 Sep, Viral gastroenteritis A08.4 [place] [address] 65480- 4842 Aug, Viral gastroenteritis A08.4 [place] [id number] [place] [address] 77137- 1349 Jul, Viral gastroenteritis A08.4 [facility] [address] 86165 -2442 Jul, Acute nasopharyngitis (common cold) J00 [place] [address] 03907- 9191 Jun, Viral gastroenteritis A08.4 [place] [address], [place] [address]- 4205 Jun, [place] [id number] [place] [address] 01132- 5220 Jun, Viral gastroenteritis A08.4 [place] [id number] [place] [address] 08697- 8661 May, Patellar tendinitis, left knee M76.52 [place] [id number] [place] [address] 39911- 6119 May, Viral gastroenteritis A08.4 [place] [id number] [place] [address] 02423- 1680 Apr, Viral gastroenteritis A08.4 and Hypothyroidism, unspecified E03.9 [place] [id number] [place] [address] 51640- 4708 15 Apr, 2017 Pain in left knee M25.562 ; Acute left-sided low back pain without sciatica M54.5 and Type 2 diabetes mellitus without complications E11.9 [place] [id number] [place] [address] 87810- 3539 Apr, Viral gastroenteritis A08.4 [place] [id number] [place] [address] 21059- 8832 March, Viral gastroenteritis A08.4 [facility] [id number] [place] [address] 44248 -3382 Feb, Acute pain of left knee M25.562 [place] [id number] [place] [address] 51401- 8723 Feb, Viral gastroenteritis A08.4 [place] [id number] [place] [address] 11753- 4764 16 Jan, 2017 Viral gastroenteritis A08.4 and Controlled type 2 diabetes mellitus without complication, without long-term current use of insulin E11.9 [place] [id number] [place] [address] 93825- 3711 Jan, [facility] [address], [place] [address]- 3949 16 Dec, 2016 Other chronic pain G89.29 ; Pain in left knee M25.562 ; Controlled type 2 diabetes mellitus without complication, without long-term current use of insulin E11.9 and Acute cystitis with hematuria N30.01 [facility] [id number] [place] [address] 21998- 0566 Dec, [facility] [id number] [place] [address] 00513- 9514 Nov, Type 2 diabetes mellitus without complications E11.9 [facility] [id number] [place] [address] 60846- 7017 Nov, [facility] [id number] [place] [address] 82466- 9108 Oct, [facility] [id number] [place] [address] 54153- 4509 Sep, [facility] [id number] [place] [address] 95104- 4294 Aug, [facility] [id number] [place] [address] 20959- 1339 Aug, [facility] [id number] [place] [address] 05075- 8961 Jul, Controlled type 2 diabetes mellitus without complication, without long-term current use of insulin E11.9 ; Callus of foot L84 and URI, acute J06.9 [facility] [id number] [place] [address] 46898- 9392 Jul, [facility] [id number] [place] [address] 27539- 7076 Jun, Onychomycosis B35.1 and Nail ingrowing L60.0 [place] [id number] [place] [address] 79882- 8278 Jun, [place] [address], [place] [address]- 5263 Jun, Lumbar back pain with radiculopathy affecting left lower extremity M54.17 [facility] [id number] [place] [address] 84484- 5448 Jun, [facility] [id number] [place] [address] 14962- 2107 Jun, Other chronic pain G89.29 [facility] [id number] [place] [address] 44510- 3407 Jun, Other chronic pain G89.29 [facility] [id number] [place] [address] 61550- 4862 Jun, Type 2 diabetes mellitus without complications E11.9 [place] [id number] [place] [address] 90050- 3920 Jun, [facility] [id number] [place] [address] 69452- 0117 Jun, Onychomycosis B35.1 ; Callus L84 and Rash R21 [place] [id number] [place] [address] 57286- 9849 May, [facility] [id number] [place] [address] 33563- 6086 May, [facility] [id number] [place] [address] 20068- 8110 May, Type 2 diabetes mellitus without complications E11.9 [facility] [address], [place] [address]- 9757 May, [facility] [id number] [place] [address] 92341- 8532 Apr, [place] [id number] [place] [address] 31028- 9371 Apr, Type 2 diabetes mellitus without complications E11.9 ; Acquired hypothyroidism E03.9 ; Callus of foot L84 and Upper respiratory tract infection, unspecified type J06.9 [facility] [address], [place] [address]- 4209 March, [facility] [id number] [place] [address] 21725- 5064 Feb, [facility] [id number] [address]- 1875 Jan, Diabetes mellitus without mention of complication, type II or unspecified type, not stated as uncontrolled 250.00 [facility] [address], [place] [address]- 2794 28 Jan, 2016 [facility] [id number] [place] [address] 17036- 1868 16 Jan, 2016 Diabetes E11.9 and Hypothyroidism E03.9 [facility] [id number] [place] [address] 33232- 2807 Dec, Diarrhea R19.7 [facility] [id number], [place] [address]- 1044 Dec, [facility] [id number] [place] [address] 90394- 0162 Dec, Hypothyroidism, unspecified E03.9 [facility] [address], [place] [address]- 6622 Dec, [facility] [address], [place] [address]- 1539 Dec, Hypothyroidism, unspecified E03.9 [facility] [address], [place] [address]- 1132 04 Dec, 2015 Diarrhea R19.7 [facility] [address], [place] [address]- 3832 Dec, Diarrhea R19.7 [facility] [address], [place] [address]- 6914 Nov, [facility] [address], [place] [address]- 0655 Nov, [facility] [address], [place] [address]- 5250 Oct, [facility] [id number] 3347 Sep, Postnasal drip R09.82 [facility] [id number] [place] [address] 98129- 7260 Sep, [facility] [id number] [place] [address] 47064- 4648 Sep, [facility] [id number] [place] [address] 34624- 2130 Aug, [facility] [id number] [place] [address] 40129- 5692 Aug, [facility] [id number] [place] [address] 80630- 7523 Jul, Hypothyroidism 244.9 [facility] [id number] [place] [address] 40834- 9519 Jul, Diabetes mellitus without mention of complication, type II or unspecified type, not stated as uncontrolled 250.00 [facility] [address], [place] [address]- 2840 Jul, [facility] [id number], [place] [address]- 3785 Jul, [facility] [address], [place] [address]- 4616 Jun, [facility] [id number] [place] [address] 21833- 6846 May, Other chronic pain 338.29 [facility] [address], [place] [address]- 1958 May, Other chronic pain 338.29 [facility] [address], [place] [address]- 2528 May, [facility] [address], [place] [address]- 8717 May, [facility] [id number], [place] [address]- 1319 Apr, Rash 782.1 ; Hypercholesterolemia 272.0 and Hypothyroidism 244.9 [facility] [id number] [place] [address] 34794- 9298 Apr, [facility] [id number] [place] [address], [place] [address]- 1549 Apr, [facility] [id number] [place] [address] 71754- 7024 March, [facility] [id number], [place] [address]- 0711 Feb, [facility] [address], [place] [address]- 3653 Feb, [facility] [address], [place] [address]- 5766 Jan, [facility] [address], [place] [address]- 3419 Jan, [facility] [address], [place] [address]- 1515 Jan, [facility] [address], [place] [address]- 9092 Jan, [facility] [id number], [place] [address]- 6551 Jan, [facility] [address], [place] [address]- 9299 Jan, [facility] [place] [facility] [address], [place] [address]- 7703 Jan, [facility] [id number] [place] [address]- 5738 16 Dec, 2014 [facility] [place] [facility] [address] [id number] [place] 0822 Dec, [facility] [place] [facility] [address] [id number] [place] [address]- 5805 Nov, [facility] [place] [facility] [address] [id number] [place] [address]- 6220 Nov, [facility] [place] [facility] [address] [id number] [place] [address]- 3219 Nov, [facility] [place] [facility] [address] [id number] [place] [address]- 5807 Nov, [facility] [place] [facility] [address] [id number] [place] [address]- 8469 Nov, [facility] [place] [facility] [address] [id number] [place] [address]- 5441 Nov, [facility] [place] [facility] [address] [id number] [place] [address]- 1115 Oct, [facility] [place] [facility] [address] [id number] [place] [address]- 7056 Oct, [facility] [place] [facility] [address] [id number] [place] [address]- 1768 Sep, [facility] [place] [facility] [address] [id number] [place] [address]- 5005 Sep, [facility] [place] [facility] [address] [id number] [place] [address]- 1397 Sep, [facility] [place] [facility] [address] [id number] [place]- 2807 Sep, [facility] [place] [facility] [address] [id number] [place] [address]- 7065 Aug, [facility] [place] [facility] [address] [id number] [place] [address]- 9534 Aug, [facility] [place] [facility] [address] [id number] [place] [address]- 1585 Jul, [facility] [place] [facility] [address] [id number] [place] [address]- 8706 Jul, [facility] [place] [facility] [address] [id number] [place] [address]- 9418 Jun, [facility] [place] [facility] [address] [id number] [place] [address]- 6525 Jun, [facility] [place] [facility] [address] [id number] [place] [address]- 8262 Jun, [facility] [place] [facility] [address] [id number] [place] [address]- 7608 Jun, [facility] [place] [facility] [address] [id number] [place] [address]- 7181 May, [facility] [place] [facility] [address] [id number] [place] [address]- 8317 May, [facility] [place] [facility] [address] [id number] [place] [address]- 3654 May, [facility] [place] [facility] [address] [id number] [place] [address]- 0089 May, [facility] [place] [facility] [address] [id number] [place] [address]- 2182 Apr, [facility] [place] [facility] [address] [id number] [place] [address]- 2023 Apr, [facility] [place] [facility] [address] [id number] [place] [address]- 9379 March, [facility] [place] [facility] [address] [id number] [place] [address]- 7637 March, [facility] [place] [facility] [address] [id number] [place] [address]- 3587 March, [facility] [place] [facility] [address] [id number] [place] [address]- 0736 March, [facility] [place] [facility] [address] [id number] [place] [address]- 1432 March, [facility] [place] [facility] [address] [id number] [place] 3920 March, [facility] [place] [facility] [address] [id number] [place] [address]- 3177 Feb, [facility] [place] [facility] [address] [id number] [place] [address]- 2211 Feb, [facility] [place] [facility] [address] [id number] [place] [address]- 9789 Feb, [facility] [place] [facility] [address] [id number] [place] [address]- 6941 Feb, [facility] [place] [facility] [address] [id number] [place] [address]- 9886 Feb, [facility] [place] [facility] [address] [id number] [place] [address]- 4513 Feb, [facility] [place] [facility] [address] [id number] [place] [address]- 8549 Feb, [facility] [place] [facility] [address] [id number] [place] [address]- 6792 Feb, [facility] [place] [facility] [address] [id number] [place] [address]- 7824 Jan, [facility] [place] [facility] [address] [id number] [place] [address]- 8960 Jan, [facility] [place] [facility] [address] [id number] [place] [address]- 8538 Jan, [facility] [place] [facility] [address] [id number] [place] [address]- 6627 Jan, [facility] [place] [facility] [address] [id number] [place] [address]- 1745 Jan, [facility] [place] [facility] [address] [id number] [place] [address]- 5864 13 Jan, 2014 [facility] [place] [facility] [address] [id number] [place] [address]- 1743 Jan, [facility] [place] [facility] [address] [id number] [place] [address]- 1722 Jan, [facility] [place] [facility] [address] [id number] [place] [address] Jan, [facility] [place] [facility] [address] [id number] [place] [address] Dec, [facility] [place] [facility] [address] [id number] [place] [address] Dec, [facility] [place] [facility] [address] [id number] [place] [address] Nov, [facility] [place] [facility] [address] [id number] [place] [address] Nov, [facility] [place] [facility] [address] [id number] [place] [address] Nov, [facility] [place] [facility] [address] [id number] [place] [address] Nov, [facility] [place] [facility] [address] [id number] [place] [address] Nov, [facility] [place] [facility] [address] [id number] [place] [address] Nov, [facility] [place] [facility] [address] [id number] [place] [address] Oct, [facility] [place] [facility] [address] [id number] [place] [address] Oct, [facility] [place] [facility] [address] [id number] [place] [address] Sep, [facility] [place] [facility] [address] [id number] [place] [address] Sep, [facility] [place] [facility] [address] [id number] [place] [address] Sep, [facility] [place] [facility] [address] [id number] [place] [address] Sep, [facility] [place] [facility] [address] [id number] [place] [address] Sep, [facility] [place] [facility] [address] [id number] [place] [address] Sep, [facility] [place] [facility] [address] [id number] [place] [address] Sep, [facility] [place] [facility] [address] [id number] [place] [address] Sep, [facility] [place] [facility] [address] [id number] [place] [address] Aug, [facility] [place] [facility] [address] [id number] [place] [address] Aug, [facility] [place] [facility] [address] [id number] [place] [address] Aug, [facility] [place] [facility] [address] [id number], [place] [address] Jul, [facility] [place] [facility] [address] [id number], [place] [address] Jul, [facility] [place] [facility] [address] [id number], [place] [address] Jul, [facility] [place] [facility] [address] [id number] [place] [address] Jun, [facility] [place] [facility] [address] [id number] [place] [address] Jun, [facility] [place] [facility] [address] [id number] [place] [address] Jun, [facility] [place] [facility] [address] [id number] [place] [address] Jun, [facility] [address] [id number] [place] [address] Jun, [facility] [address] [id number] [place] [address] Jun, [facility] [address] [id number] [place] [address] May, [facility] [address] [id number] [place] [address] May, [facility] [address] [id number] [place] [address] Apr, [facility] [address] [id number] [place] [address] Apr, [facility] [address] [id number] [place] [address] March, [facility] [address] [id number] [place] [address] Feb, [facility] [address] [id number] [place] [address] Feb, [facility] [address] [id number] [place] [address] Feb, [facility] [address] [id number] [place] [address] Feb, [facility] [address] [id number] [place] [address] Jan, [facility] [place] [facility] [address] [id number] [place] [address] Jan, [facility] [place] [facility] [address] [id number] [place] [address] Jan, [facility] [address] [id number] [place] [address] Jan, [facility] [address] [id number] [place] [address] Jan, [facility] [place] [facility] [address] [id number] [place] [address] Dec, [facility] [place] [facility] [address] [id number] [place] [address] Nov, [facility] [place] [facility] [address] [id number] [place] [address] Nov, [facility] [place] [facility] [address] [id number] [place] [address] Oct, [facility] [place] [facility] [address] [id number] [place] [address] Oct, [facility] [address] [id number] [place] [address] Oct, [facility] [place] [facility] [address] [id number] [place] [address] Oct, [facility] [place] [facility] [address] [id number] [place] [address] Oct, [facility] [place] [facility] [address] [id number] [place] [address] Oct, [facility] [place] [facility] [address] [id number] [place] [address] Oct, [facility] [place] [facility] [address] [id number] [place] [address] Oct, [facility] [place] [facility] [address] [id number] [place] [address] Aug, [facility] [place] [facility] [address] [id number] [place] [address] Aug, [facility] [place] [facility] [address] [id number] [place] [address] Aug, [facility] [place] [facility] [address] [id number] [place] [address]- [address] Aug, [facility] [place] [facility] [address] [id number] [place] [address]- 7316 Aug, [facility] [place] [facility] [address] [id number] [place] [address] 19 Aug, 2012 [facility] [place] [facility] [address] [id number] [place] [address]- [address] 15 Aug, 2012 [facility] [place] [facility] [address] [id number] [place] [address] 27 Jul, 2012 [facility] [place] [facility] [address] [id number] [place] [address]- [address]66 27 Jul, 2012 [facility] [place] [facility] [address] [id number] [place] [address]697 27 Jul, 2012 [facility] [place] [facility] [address] [id number] [place] [address]- [address]181 27 Jul, 2012 [facility] [place] [facility] [address] [id number] [place] [address] 03 Jul, 2012 [facility] [place] [facility] [address] [id number] [place] [address] 79[address] Jun, [facility] [place] [facility] [address] [id number] [place] [address] Jun, [facility] [place] [facility] [address] [id number] [place] [address] Jun, [facility] [place] [facility] [address] [id number] [place] [address] May, [facility] [place] [facility] [address] [id number] [place] [address]40 May, [facility] [place] [facility] [address] [id number] [place] [address] May, [facility] [place] [facility] [address] [id number] [place] [address] May, [facility] [place] [facility] [address] [id number] [place] [address]- [address] 23 May, 2012 [facility] [address] [id number] [place] [address] 17 May, 2012 [facility] [place] [facility] [address] [id number] [place] [address]- [address] May, [facility] [address] [id number] [place] [address] Apr, [facility] [place] [facility] [address] [id number] [place] [address] 1992 Apr, [facility] [address] [id number] [place] [address] March, [facility] [address] [id number] [place] [address]- 2406 Feb, [facility] [address] [id number] [place] [address] 30 Jan, 2012 [facility] [address] [id number] [place] [address] Jan, [facility] [place] [facility] [address] [id number] [place] [address] Jan, [facility] [address] [id number] [place] [address] Jan, [facility] [place] [facility] [address] [id number] [place] [address] Jan, [facility] [place] [facility] [address] [id number] [place] [address] 2546 Jan, [facility] [place] [facility] [address] [id number] [place] [address]- [address] Jan, [facility] [place] [facility] [address] [id number] [place] [address]- 1366 Jan, [facility] [place] [facility] [address] [id number] [place] [address]- [address] Jan, [facility] [address] [id number] [place] [address]- 76[address] Jan, [facility] [place] [facility] [address] [id number] [place] [address]- 8866 Dec, [facility] [place] [facility] [address] [id number] [place] [address]- 1770 Dec, [facility] [place] [facility] [address] [id number] [place] [address]- 9136 Dec, [facility] [place] [facility] [address] [id number] [place] [address] Dec, [facility] [place] [facility] [address] [id number] [place] [address]- 4448 Dec, [facility] [place] [facility] [address] [id number] [place] [address]- 7161 Dec, [facility] [place] [facility] [address] [id number] [place] [address]- [address] Dec, [facility] [place] [facility] [address] [id number] [place] [address] Dec, [facility] [place] [facility] [address] [id number] [place] [address]- 6255 Nov, [facility] [place] [facility] [address] [id number] [place] [address]- 0893 Nov, [facility] [place] [facility] [address] [id number] [place] [address]- 2999 Nov, [facility] [place] [facility] [address] [id number] [place] [address] Oct, [facility] [place] [facility] [address] [id number] [place] [address] Oct, [facility] [place] [facility] [address] [id number] [place] [address]- 7[address] Oct, [facility] [place] [facility] [address] [facility] [id number] [place] [address] Oct, [facility] [address] [facility] [id number] [place] [address] Sep, IMMUNIZATIONS No Known Immunizations SOCIAL HISTORY Never Assessed REASON FOR VISIT DME PLAN OF CARE VITAL SIGNS MEDICATIONS Unknown [...] intraocular lens prosthesis Hospitalization History admitted to [facility] for bronchitis then went into cardiac arrest and was resuscitated. She was in the hospital for 7 days. 2012 Hospitalization History surgeries
--- OUTSIDE RECORDS SUMMARY | 2019-01-07 23:49 | XMS REPORT ---
Author Author NALINI GOMEZ Organization [facility] Address [address] [place] [address] Care Team Providers [facility] [employer] Name Role Phone NALINI GOMEZ Unavailable PROBLEMS Type Condition ICD9-CM Code NVG59-DE Code Onset Dates Condition Status SNOMED Code Problem Hypothyroidism, unspecified E03.9 Active 27308215 Problem Hypothyroidism (acquired) E03.9 Active 67866357 Problem Acquired hypothyroidism E03.9 Active 981375467 Problem Other chronic pain G89.29 Active 22277332 Problem Hypertension, benign I10 Active 95936660 Problem Episode of recurrent major depressive disorder, unspecified depression episode severity F33.9 Active 884198605 Problem Mixed hyperlipidemia E78.2 Active 428919344 Problem Stress incontinence of urine N39.3 Active 71722282 Problem Urinary, incontinence, stress female N39.3 Active 18705020 Problem Hypercholesterolemia 272.0 Active 80050658 Problem Type 2 diabetes mellitus without complications E11.9 Active 653689529 Problem Other chronic pain G89.29 Active 68521066 Problem Panlobular emphysema J43.1 Active 6737630 Problem Controlled type 2 diabetes mellitus without complication, without long -term current use of insulin E11.9 Active 154657626 ALLERGIES Substance Reaction Event Type Date Status Rocephin Unknown Drug Allergy Jun, Active Penicillin V Potassium Unknown Drug Allergy Jun, Active Nsaids (non-steroidal Anti-inflammatory Drug) renal insuffiency Non Drug Allergy Jun, Active ENCOUNTERS Encounter Location Date Diagnosis [facility] [address] [facility] [id number] [address] Jul, Stress incontinence of urine N39.3 [facility] [address] [facility] [id number], [place] [address] Jun, [facility] [address] [facility] [id number], [place] [address] Jun, Other chronic pain G89.29 [facility] [id number] [place] [address] 05737- 3136 Jun, Other chronic pain G89.29 [place] [id number] [place] [address] 28093- 6247 Jun, Stress incontinence of urine N39.3 ; Controlled type 2 diabetes mellitus without complication, without long-term current use of insulin E11.9 and Hypertension, benign I10 [place] [address] 88912- 4675 Jun, [place] [address] 28326- 9815 Jun, [place] [address] 64043- 5297 May, [place] [address] 75061- 1196 May, Viral gastroenteritis A08.4 [place] [id number] [place] [address] 50513- 1060 May, Acute diffuse otitis externa of left ear H60.312 and Acquired hypothyroidism E03.9 [place] [id number] [place] [address] 43959- 7551 May, Episode of recurrent major depressive disorder, unspecified depression episode severity F33.9 ; Urinary, incontinence, stress female N39.3 ; Mixed hyperlipidemia E78.2 and Hypothyroidism (acquired) E03.9 [place] [id number] [place] [address] 43844- 5700 May, [place] [address] 63451- 8480 May, Viral gastroenteritis A08.4 [place] [id number] [place] [address] 62933- 2919 Apr, Acute diffuse otitis externa of left ear H60.312 and Hypothyroidism (acquired) E03.9 [place] [id number] [place] [address] 25042- 0259 Apr, Viral gastroenteritis A08.4 and Acquired hypothyroidism E03.9 [place] [id number] [place] [address] 44896- 8993 Apr, Type 2 diabetes mellitus without complications E11.9 and Panlobular emphysema J43.1 [place] [id number] [place] [address] 20349- 8051 Apr, Viral gastroenteritis A08.4 [place] [id number] [place] [address] 79331- 3314 March, [place] [id number] [place] [address] 93205- 7946 March, Viral gastroenteritis A08.4 [place] [id number] [place] [address] 27672- 0470 Feb, Panlobular emphysema J43.1 [place] [id number] [place] [address] 12749- 6124 Feb, Panlobular emphysema J43.1 [place] [id number] [place] [address] 58977- 3720 Feb, [place] [id number] [place] [address] 14281- 5423 Feb, [place] [id number] [place] [address] 76795- 0449 Feb, Viral gastroenteritis A08.4 [place] [id number] [place] [address] 59827- 4556 Feb, Head lice B85.0 [place] [id number] [place] [address] 36041- 5434 Feb, Medicare annual wellness visit, initial Z00.00 ; Head lice B85.0 ; Tinea corporis B35.4 and Enlarged lymph node R59.9 [place] [id number] [place] [address] 80873- 5811 Jan, Viral gastroenteritis A08.4 [place] [address] 75129- 6150 Jan, [place] [id number] [place] [address] 01340- 8157 Dec, Controlled type 2 diabetes mellitus without complication, without long-term current use of insulin E11.9 [place] [id number] [place] [address] 60362- 0934 Dec, [place] [address] 17220- 0053 Dec, Viral gastroenteritis A08.4 [place] [id number] [place] [address] 05420- 5228 Nov, Viral gastroenteritis A08.4 [place] [id number] [place] [address] 07111- 2291 Oct, Acute upper respiratory infection, unspecified J06.9 and Other viral agents as the cause of diseases classified elsewhere B97.89 [place] [id number] [place] [address] 21535- 3096 Oct, Viral gastroenteritis A08.4 [place] [id number] [place] [address] 27952- 1896 Oct, Controlled type 2 diabetes mellitus without complication, without long-term current use of insulin E11.9 ; Encounter for immunization Z23 and Acute pain of left foot M79.672 [place] [id number] [place] [address] 83915- 5442 Sep, Viral gastroenteritis A08.4 [place] [address] 04387- 5332 Aug, Viral gastroenteritis A08.4 [place] [id number] [place] [address] 83187- 3777 Jul, Viral gastroenteritis A08.4 [facility] [id number] [place] [address] 62767 -8595 Jul, Acute nasopharyngitis (common cold) J00 [place] [id number] [place] [address] 10508- 9947 Jun, Viral gastroenteritis A08.4 [place] [id number] [place] [address] 34251- 0726 Jun, [place] [id number] [place] [address] 94399- 2581 Jun, Viral gastroenteritis A08.4 [place] [address] 97387- 7176 May, Patellar tendinitis, left knee M76.52 [place] [address] 19867- 9701 May, Viral gastroenteritis A08.4 [place] [id number] [place] [address] 54970- 4078 Apr, Viral gastroenteritis A08.4 and Hypothyroidism, unspecified E03.9 [place] [id number] [place] [address] 06013- 9210 Apr, Pain in left knee M25.562 ; Acute left-sided low back pain without sciatica M54.5 and Type 2 diabetes mellitus without complications E11.9 [place] [id number] [place] [address] 49600- 2764 Apr, Viral gastroenteritis A08.4 [place] [id number] [place] [address] 64388- 9086 March, Viral gastroenteritis A08.4 [facility] [id number] [place] [address] 53282 -9531 Feb, Acute pain of left knee M25.562 [place] [id number] [place] [address] 93610- 9404 Feb, Viral gastroenteritis A08.4 [place] [id number] [place] [address] 77668- 2210 16 Jan, 2017 Viral gastroenteritis A08.4 and Controlled type 2 diabetes mellitus without complication, without long-term current use of insulin E11.9 [place] [id number] [place] [address] 49930- 0434 14 Jan, 2017 [place] [address] 73665- 6934 16 Dec, 2016 Other chronic pain G89.29 ; Pain in left knee M25.562 ; Controlled type 2 diabetes mellitus without complication, without long-term current use of insulin E11.9 and Acute cystitis with hematuria N30.01 [place] [id number] [place] [address] 96105- 1679 01 Dec, 2016 [place] [address] 68641- 6594 06 Nov, 2016 Type 2 diabetes mellitus without complications E11.9 [place] [id number] [place] [address] 51058- 3378 04 Nov, 2016 [place] [address] 97160- 9364 Oct, [place] [id number] [place] [address] 22774- 8844 Sep, [place] [id number] [place] [address] 42488 2546 Aug, [place] [id number] [place] [address] 61223- 2549 Aug, [place] [address] 06373- 0711 20 Jul, 2016 Controlled type 2 diabetes mellitus without complication, without long-term current use of insulin E11.9 ; Callus of foot L84 and URI, acute J06.9 [place] [address] 52369- 1966 Jul, [facility] [address] [place] [address] 96239- 3553 Jun, Onychomycosis B35.1 and Nail ingrowing L60.0 [facility] [id number] [place] [address] 56511- 8486 Jun, [facility] [id number] [place] [address] 96420- 4774 Jun, Lumbar back pain with radiculopathy affecting left lower extremity M54.17 [facility] [id number] [place] [address] 56762- 7407 Jun, [facility] [id number] [place] [address] 47682- 5552 Jun, Other chronic pain G89.29 [facility] [id number] [place] [address] 52795- 3401 Jun, Other chronic pain G89.29 [facility] [id number] [place] [address] 65930- 7580 Jun, Type 2 diabetes mellitus without complications E11.9 [place] [id number] [place] [address] 52164- 9911 Jun, [facility] [id number] [place] [address] 14528- 5547 Jun, Onychomycosis B35.1 ; Callus L84 and Rash R21 [facility] [address] [place] [address] 88207 2548 May, [facility] [id number] [place] [address] 40311- 9408 May, [facility] [id number] [place] [address] 02749- 8464 May, Type 2 diabetes mellitus without complications E11.9 [facility] [id number] [place] [address] 91568- 7532 May, [facility] [address] [place] [address] 83989- 1681 Apr, [facility] [id number] [place] [address] 33351- 6869 Apr, Type 2 diabetes mellitus without complications E11.9 ; Acquired hypothyroidism E03.9 ; Callus of foot L84 and Upper respiratory tract infection, unspecified type J06.9 [facility] [id number] [place] [address] 46271- 9355 March, [facility] [id number] [place] [address] 27043- 0089 Feb, [facility] [id number] [place] [address] 60131- 5987 Jan, Diabetes mellitus without mention of complication, type II or unspecified type, not stated as uncontrolled 250.00 [facility] [id number] [place] [address] 76533- 0255 Jan, [facility] [id number] [place] [address] 71147- 1119 Jan, Diabetes E11.9 and Hypothyroidism E03.9 [facility] [id number] [place] [address] 28976- 5104 Dec, Diarrhea R19.7 [facility] [id number] [place] [address] 66735- 3536 Dec, [facility] [id number] [place] [address] 28049- 2149 Dec, Hypothyroidism, unspecified E03.9 [facility] [id number] [place] [address] 16225- 7924 Dec, [facility] [id number] [place] [address] 17681- 4501 Dec, Hypothyroidism, unspecified E03.9 [facility] [id number] [place] [address] 16335- 2760 04 Dec, 2015 Diarrhea R19.7 [facility] [address] [place] [address] 51269- 1626 Dec, Diarrhea R19.7 [facility] [id number] [place] [address] 37869- 3086 Nov, [facility] [id number] [place] [address] 11208- 4066 Nov, [facility] [id number] [place] [address] 49235- 2111 Oct, [facility] [id number] [place] [address] 95486- 5692 Sep, Postnasal drip R09.82 [facility] [id number] [place] [address] 602767- 4817 Sep, [facility] [id number] [place] [address] 26857- 3213 Sep, [facility] [address] [place] [address] 64341- 3961 Aug, [facility] [id number] [place] [address] 750712- 6666 Aug, [facility] [address] [place] [address] 20125- 5009 Jul, Hypothyroidism 244.9 [facility] [address] [place] [address] 029527- 5873 Jul, Diabetes mellitus without mention of complication, type II or unspecified type, not stated as uncontrolled 250.00 [facility] [id number] [place] [address] 835482- 1401 Jul, [facility] [address] 1725 Jul, [facility] [address] [place] [address] 561178- 3330 Jun, [facility] [address] [address]- 0991 May, Other chronic pain 338.29 [facility] [address] [address]- 1082 10 May, 2015 Other chronic pain 338.29 [facility] [address] [address]- 9600 09 May, 2015 [facility] [id number] [place] [address] 80744- 5168 08 May, 2015 [facility] [id number] [place] [address] 23176- 9268 Apr, Rash 782.1 ; Hypercholesterolemia 272.0 and Hypothyroidism 244.9 [facility] [id number] [place] [address] 91191- 6553 Apr, [facility] [id number] [place] [address] 03273- 0548 Apr, [facility] [address] [address]- 1560 March, [facility] [id number] [place] [address] 28511- 3340 Feb, [facility] [address] [address]- 6548 Feb, [facility] [address] [address]- 0052 Jan, [facility] [address] [address]- 2001 Jan, [facility] [id number] [place] [address] 107175- 4886 Jan, [facility] [address] [address]- 9539 Jan, [facility] [id number] [place] [address] 30777- 2990 Jan, [facility] [place] [facility] [address] [id number] [place] [address]- 7681 Jan, [facility] [place] [facility] [address] [id number] [place] [address]- 2124 Jan, [facility] [place] [facility] [address] [id number] [place] [address]- 4469 Dec, [facility] [place] [facility] [address] [id number] [place] [address]- 5200 Dec, [facility] [place] [facility] [address] [id number] [place] [address]- 5078 Nov, [facility] [place] [facility] [address] [id number] [place] [address]- 1665 Nov, [facility] [place] [facility] [address] [id number] [place] [address]- 0130 Nov, [facility] [place] [facility] [address] [id number] [place] [address]- 1540 Nov, [facility] [place] [facility] [address] [id number] [place] [address]- 7443 Nov, [facility] [place] [facility] [address] [facility] [id number] [place] [address]- 8854 Nov, [facility] [place] [facility] [address] [id number] [address]- 5458 Oct, [facility] [place] [facility] [address] [id number] [place] [address]- 7776 Oct, [facility] [place] [facility] [address] [id number] [place] [address]- 0708 Sep, [facility] [place] [facility] [address] [id number] [place] [address]- 9988 Sep, [facility] [place] [facility] [address] [facility] [id number] [place] [address]- 9916 Sep, [facility] [place] [facility] [address] [id number] [place] [address]- 8731 Sep, [facility] [place] [facility] [address] [id number] [place] [address]- 0780 Aug, [facility] [place] [facility] [address] [id number] [place] [address]- 3513 Aug, [facility] [place] [facility] [address] [id number] [place] [address]- 3465 Jul, [facility] [place] [facility] [address] [id number] [place] [address]- 6027 Jul, [facility] [place] [facility] [address] [id number] [place] [address]- 0671 Jun, [facility] [place] [facility] [address] [id number] [place] [address]- 5883 Jun, [facility] [place] [facility] [address] [id number] [place] [address]- 5369 Jun, [facility] [place] [facility] [address] [id number] [place] [address]- 4328 Jun, [facility] [place] [facility] [address] [id number] [place] [address]- 7033 May, [facility] [place] [facility] [address] [id number] [place] 5779 May, [facility] [place] [facility] [address] [id number] [place] [address]- 7515 May, [facility] [place] [facility] [address] [id number] [place] [address]- 9029 May, [facility] [place] [facility] [address] [id number] [place] [address]- 4688 Apr, [facility] [place] [facility] [address] [id number] [place] [address]- 7166 Apr, [facility] [place] [facility] [address] [id number] [place] [address]- 2499 March, [facility] [place] [facility] [address] [id number] [place] [address]- 1266 March, [facility] [place] [facility] [address] [id number] [place] [address]- 0280 March, [facility] [place] [facility] [address] [id number] [place] [address]- 9772 March, [facility] [place] [facility] [address] [id number] [place] [address]- 4169 March, [facility] [place] [facility] [address] [id number] [place] [address]- 5786 March, [facility] [place] [facility] [address] [id number] [place] [address]- 9035 Feb, [facility] [place] [facility] [address] [id number] [place] [address]- 1844 Feb, [facility] [place] [facility] [address] [id number] [place] [address]- 5393 Feb, [facility] [place] [facility] [address] [id number] [place] [address]- 0125 Feb, [facility] [place] [facility] [address] [id number] [place] [address] Feb, [facility] [place] [facility] [address] [id number] [place] [address] Feb, [facility] [place] [facility] [address] [id number] [place] [address] Feb, [facility] [place] [facility] [address] [id number] [place] [address] Feb, [facility] [place] [facility] [address] [id number] [place] [address] Jan, [facility] [place] [facility] [address] [id number] [place] [address] Jan, [facility] [place] [facility] [address] [id number] [place] [address] Jan, [facility] [place] [facility] [address] [id number] [place] [address] Jan, [facility] [place] [facility] [address] [id number] [place] [address] Jan, [facility] [place] [facility] [address] [id number] [place] [address] Jan, [facility] [place] [facility] [address] [id number] [place] [address] Jan, [facility] [place] [facility] [address] [id number] [place] [address] Jan, [facility] [place] [facility] [address] [id number] [place] [address] Jan, [facility] [place] [facility] [address] [id number] [place] [address] Dec, [facility] [place] [facility] [address] [id number] [place] [address] Dec, [facility] [place] [facility] [address] [id number] [place] [address] Nov, [facility] [place] [facility] [address] [id number] [place] [address] Nov, [facility] [place] [facility] [address] [id number] [place] [address] Nov, [facility] [place] [facility] [address] [id number] [place] [address] Nov, [facility] [place] [facility] [address] [id number] [place] [address] Nov, [facility] [place] [facility] [address] [id number] [place] [address] Nov, [facility] [place] [facility] [address] [id number] [place] [address] Oct, [facility] [place] [facility] [address] [id number] [place] [address] Oct, [facility] [place] [facility] [address] [id number] [place] [address] Sep, [facility] [place] [facility] [address] [id number] [place] [address] Sep, [facility] [place] [facility] [address] [id number] [place] [address] Sep, [facility] [address] [id number] [place] [address] Sep, [facility] [place] [facility] [address] [id number] [place] [address] Sep, [facility] [address] [id number] [place] [address] Sep, [facility] [address] [id number] [place] [address] Sep, [facility] [place] [facility] [address] [id number] [place] [address] Sep, [facility] [place] [facility] [address] [id number] [place] [address] Aug, [facility] [place] [facility] [address] [id number] [place] [address] Aug, [facility] [place] [facility] [address] [id number], [place] [address] Aug, [facility] [place] [facility] [address] [id number] [place] [address] Jul, [facility] [place] [facility] [address] [id number] [place] [address] Jul, [facility] [place] [facility] [address] [id number] [place] [address] Jul, [facility] [place] [facility] [address] [id number], [place] [address] Jun, [facility] [address] [id number] [place] [address] Jun, [facility] [place] [facility] [address] [id number] [place] [address] Jun, [facility] [place] [facility] [address] [id number] [place] [address] Jun, [facility] [place] [facility] [address] [id number] [place] [address] Jun, [facility] [place] [facility] [address] [id number] [place] [address] Jun, [facility] [place] [facility] [address] [id number] [place] [address] May, [facility] [place] [facility] [address] [id number] [place] [address] May, [facility] [place] [facility] [address] [id number] [place] [address] Apr, [facility] [place] [facility] [address] [id number] [place] [address] 93[address] Apr, [facility] [place] [facility] [address] [id number] [place] [address] March, [facility] [place] [facility] [address] [id number] [place] [address] Feb, [facility] [place] [facility] [address] [id number] [place] [address] 9[address] Feb, [facility] [place] [facility] [address] [id number] [place] [address] 16 Feb, 2013 [facility] [place] [facility] [address] [id number] [place] [address] 3560 Feb, [facility] [place] [facility] [address] [id number] [place] [address] Jan, [facility] [place] [facility] [address] [id number] [place] [address] 2546 26 Jan, 2013 [facility] [address] [id number] [place] [address] 22 Jan, 2013 [facility] [address] [id number] [place] [address] 2546 19 Jan, 2013 [facility] [address] [id number] [place] [address] 05 Jan, 2013 [facility] [address] [id number] [place] [address] Dec, [facility] [address] [id number] [place] [address] Nov, [facility] [address] [id number] [place] [address] Nov, [facility] [address] [id number] [place] [address] Oct, [facility] [address] [id number] [place] [address] 64[address] Oct, [facility] [address] [id number] [place] [address] 12[address] Oct, [facility] [address] [id number] [place] [address] Oct, [facility] [address] [id number] [place] [address] Oct, [facility] [address] [id number] [place] [address] 1331 Oct, [facility] [place] [facility] [address] [id number] [place] [address]676 Oct, [facility] [address] [id number] [place] [address] 2546 Oct, [facility] [address] [id number] [place] [address] 1196 Aug, [facility] [place] [facility] [address] [id number] [place] [address] 8435 30 Aug, 2012 [facility] [place] [facility] [address] [id number] [place] [address] 1148 Aug, [facility] [place] [facility] [address] [id number] [place] [address] 4769 Aug, [facility] [place] [facility] [address] [id number] [place] [address]67 Aug, [facility] [place] [facility] [address] [id number] [place] [address]- [address]874 19 Aug, 2012 [facility] [place] [facility] [address] [id number] [place] [address] 15 Aug, 2012 [facility] [place] [facility] [address] [id number] [place] [address]- 9942 27 Jul, 2012 [facility] [place] [facility] [address] [id number] [place] [address] 1759 27 Jul, 2012 [facility] [place] [facility] [address] [id number] [place] [address] 27 Jul, 2012 [facility] [place] [facility] [address] [id number] [place] [address]- 2632 27 Jul, 2012 [facility] [place] [facility] [address] [id number], [place] [address] 03 Jul, 2012 [facility] [place] [facility] [address] [id number], [place] [address] 28 Jun, 2012 [facility] [place] [facility] [address] [id number] [place] [address]- 2912 Jun, [facility] [place] [facility] [address] [id number], [place] [address]- [address] 17 Jun, 2012 [facility] [place] [facility] [address] [id number] [place] [address] 5859 May, [facility] [place] [facility] [address] [id number] [place] [address]- 5525 May, [facility] [place] [facility] [address] [id number] [place] [address]- 5076 May, [facility] [place] [facility] [address] [id number] [place] [address]- 2026 May, [facility] [place] [facility] [address] [id number] [place] [address] 1376 May, [facility] [place] [facility] [address] [id number] [place] [address] 3316 May, [facility] [place] [facility] [address] [id number] [place] [address]- 8620 May, [facility] [place] [facility] [address] [id number] [place] [address] 7716 Apr, [facility] [place] [facility] [address] [id number] [place] [address] 9701 Apr, [facility] [place] [facility] [address] [id number] [place] [address] 9[address] March, [facility] [place] [facility] [address] [id number] [place] [address] 54[address] Feb, [facility] [place] [facility] [address] [id number] [place] [address]- 3124 Jan, [facility] [place] [facility] [address] [id number] [place] [address]- 0677 Jan, [facility] [place] [facility] [address] [id number] [place] [address] 254 Jan, [facility] [place] [facility] [address] [id number] [place] [address]- 3841 Jan, [facility] [place] [facility] [address] [id number] [place] [address] Jan, [facility] [place] [facility] [address] [id number] [place] [address]- 0565 Jan, [facility] [place] [facility] [address] [id number] [place] [address]- 4174 Jan, [facility] [place] [facility] [address] [id number] [place] [address] 2546 Jan, [facility] [place] [facility] [address] [id number] [place] [address]- 8126 Jan, [facility] [place] [facility] [address] [id number] [place] [address]- 9856 Jan, [facility] [place] [facility] [address] [id number] [place] [address]- 1383 Dec, [facility] [place] [facility] [address] [id number] [place] [address] 1876 Dec, [facility] [place] [facility] [address] [id number] [place] [address]- 1240 Dec, [facility] [place] [facility] [address] [id number] [place] [address]- 3672 Dec, [facility] [place] [facility] [address] [id number] [place] [address]- 9781 Dec, [facility] [place] [facility] [address] [id number] [place] [address]- 4308 Dec, [facility] [place] [facility] [address] [id number] [place] [address]- 5418 Dec, [facility] [place] [facility] [address] [id number] [place] [address]- 7690 Dec, [facility] [place] [facility] [address] [id number] [place] [address]- 7424 Nov, [facility] [place] [facility] [address] [id number] [place] [address] 2546 Nov, [facility] [place] [facility] [address] [id number] [place] [address]- 3006 Nov, [facility] [place] [facility] [address] [facility] [id number] [place] [address] Oct, [facility] [address] [facility] [id number], [place] [address]- [address] Oct, [facility] [address] [facility] [id number], [place] [address] Oct, [facility] [address] [facility] [id number], [place] [address]- [address] Oct, [facility] [address] [facility] [id number], [place] [address]- [address] Sep, IMMUNIZATIONS No Known Immunizations SOCIAL HISTORY Never Assessed REASON FOR VISIT DM f/u, -Bandar BURGOS , PT reports she has still been experincing her bladder issues, and the medication has not fully been helping. PT is interested in pull ups -Bandar Bernard A PLAN OF CARE Activity Details Follow Up 4 Months Reason:dm2 3 mo. kup VITAL SIGNS Height 64 in 2018-07-14 Weight 217.1 lbs 2018-07-14 Temperature 97.9 degrees Fahrenheit 2018-07-14 Heart Rate 74 bpm 2018-07-14 Respiratory Rate 20 2018-07-14 Oximetry 97 % 2018-07-14 BMI 37.26 kg/m2 2018-07-14 Blood pressure systolic 118 mmHg 2018-07-14 Blood pressure diastolic 72 mmHg 2018-07-14 MEDICATIONS Medication Instructions Dosage Frequency Start Date End Date Duration Status Fish Oil 1000 MG Orally Twice a day 2 capsules 12h May, Nov, 30 day(s) Not-Taking Blood Glucose Test - In Vitro 2 times a day, one touch ultra test blood sugar Active Ropinirole HCl 4 MG TAKE ONE TABLET BY MOUTH ONCE DAILY 90 Active Terbinafine HCl 1 % Externally Twice a day 1 application to affected area 12h Feb, Active Blood Glucose Monitor System w/Device subcutaneously 2 times a day test blood sugar 12h Active Incontinence Brief Large - as directed 8h Jun, Active [place] 10-325 MG Orally every 6 hrs 1 tablet as needed 6h Jun, 28 days Active Levothyroxine Sodium 175 MCG Orally Once a day 1 tablet on an empty stomach in the morning 24h Active Ranitidine HCl 150 MG TAKE ONE TABLET BY MOUTH TWICE DAILY NEEDED 90 Active Trospium Chloride 20 MG Orally Once a day 1 tablet at bedtime on an empty stomach 24h Jun, Jul, 30 day(s) Active Ondansetron HCl 4 MG TAKE ONE TABLET BY MOUTH THREE TIMES DAILY FOR 10 DAYS 10 Active Natroba 0.9 % Externally one time, may repeat if needed apply contents of bottle to cover scalp and hair Feb, Active Montelukast Sodium 10 MG 1 tablet 24h 30 Active Metformin HCl 500 mg 2 tablets 12h Active Triamcinolone Acetonide 0.1 % Externally Twice a day 1 application to affected area 12h Apr, Active Blood Pressure Monitor 1 as directed Jun, Active Cozaar 50 MG TAKE ONE TABLET BY MOUTH ONCE DAILY 30 Active OneTouch Delica Lancets 33G 33 test blood sugar 12h Active Ventolin HFA 108 (90 Base) MCG/ACT Inhalation every 6 hrs 2 puffs as needed 6h Feb, Active Imipramine HCl 25 MG Orally Once a day 1 tablet at bedtime 24h May, 30 day(s) Active Zofran 4 MG Orally 3 times a day 1 tablet 8h 10 Active Atorvastatin Calcium 40 mg Orally Once a day 1 tablet 24h 30 Active Gabapentin 100 MG TAKE ONE CAPSULE BY MOUTH ONCE DAILY 90 Active Wfgzbnsr-Gjtkxykeo-FO 1 % Otic Three times a day 4 drops into affected ear 8h Apr, Active Citalopram Hydrobromide 10 MG TAKE ONE TABLET BY MOUTH ONCE DAILY 90 Active Advair Diskus 500-50 MCG/DOSE 1 puff 12h Active Fish Oil 1000 MG Orally Twice a day 2 capsules 12h Apr, Not- Taking Cetirizine HCl 10 MG TAKE ONE TABLET BY MOUTH ONCE DAILY 30 Active RESULTS No Results PROCEDURES Procedure Date Ordered Result Body Site [facility] VISIT ESTABLISHED PATIENT Jul 14, 2018 INSTRUCTIONS MEDICATIONS ADMINISTERED No Known Medications [...] lens prosthesis Hospitalization History admitted to [facility]itis then went into cardiac arrest and was resuscitated. She was in the hospital for 7 days. 2012 Hospitalization History surgeries
--- OUTSIDE RECORDS SUMMARY | 2019-01-07 23:50 | XMS REPORT ---
Author Author NALINI GOMEZ Organization [facility] Address [address] [place] [address] Care Team Providers Care Machine Adjuster Leader Case Trim Name Role Phone NALINI GOMEZ Unavailable PROBLEMS Type Condition ICD9-CM Code BLX72-LM Code Onset Dates Condition Status SNOMED Code Problem Hypothyroidism, unspecified E03.9 Active 72932429 Problem Hypothyroidism (acquired) E03.9 Active 80990355 Problem Acquired hypothyroidism E03.9 Active 872837761 Problem Other chronic pain G89.29 Active 87814611 Problem Hypertension, benign I10 Active 73110763 Problem Episode of recurrent major depressive disorder, unspecified depression episode severity F33.9 Active 750000125 Problem Mixed hyperlipidemia E78.2 Active 936244502 Problem Stress incontinence of urine N39.3 Active 36745702 Problem Urinary, incontinence, stress female N39.3 Active 50718605 Problem Hypercholesterolemia 272.0 Active 50746796 Problem Type 2 diabetes mellitus without complications E11.9 Active 268637833 Problem Other chronic pain G89.29 Active 84557599 Problem Panlobular emphysema J43.1 Active 4456681 Problem Controlled type 2 diabetes mellitus without complication, without long -term current use of insulin E11.9 Active 281052861 ALLERGIES No Information ENCOUNTERS Encounter Location Date Diagnosis [facility] [id number], [place] [address] Jun, [facility] [address], [place] [address] Jun, Other chronic pain G89.29 [facility] [id number] [place] [address] 78484- 5161 Jun, Other chronic pain G89.29 [facility] [id number] [address] Jun, Stress incontinence of urine N39.3 ; Controlled type 2 diabetes mellitus without complication, without long-term current use of insulin E11.9 and Hypertension, benign I10 [place] [id number] [place] [address] 28904- 4201 Jun, [place] [address] 23749- 5591 Jun, [place] [address] 49761- 3782 May, [place] [address] 47811- 0504 May, Viral gastroenteritis A08.4 [place] [address] 38368- 6205 May, Acute diffuse otitis externa of left ear H60.312 and Acquired hypothyroidism E03.9 [place] [address] 99590- 4761 May, Episode of recurrent major depressive disorder, unspecified depression episode severity F33.9 ; Urinary, incontinence, stress female N39.3 ; Mixed hyperlipidemia E78.2 and Hypothyroidism (acquired) E03.9 [place] [id number] [place] [address] 65814- 5380 May, [place] [address] 94825- 6642 May, Viral gastroenteritis A08.4 [place] [address] 95819- 3208 Apr, Acute diffuse otitis externa of left ear H60.312 and Hypothyroidism (acquired) E03.9 [place] [address] 24910- 8670 Apr, Viral gastroenteritis A08.4 and Acquired hypothyroidism E03.9 [place] [id number] [place] [address] 79314- 8908 Apr, Type 2 diabetes mellitus without complications E11.9 and Panlobular emphysema J43.1 [facility] [id number] [place] [address] 70699- 2363 Apr, Viral gastroenteritis A08.4 [facility] [address] 89333- 7315 March, [facility] [address] 43460- 8645 March, Viral gastroenteritis A08.4 [facility] [address] 68061- 0544 Feb, Panlobular emphysema J43.1 [facility] [address] 29815- 3492 Feb, Panlobular emphysema J43.1 [place] [address] 95791- 8263 Feb, [facility] [address] 21224- 2085 Feb, [facility] [id number] [place] [address] 03847- 8252 Feb, Viral gastroenteritis A08.4 [place] [id number] [place] [address] 17612- 1535 Feb, Head lice B85.0 [place] [id number] [place] [address] 16419- 7277 Feb, Medicare annual wellness visit, initial Z00.00 ; Head lice B85.0 ; Tinea corporis B35.4 and Enlarged lymph node R59.9 [place] [id number] [place] [address] 32266- 5836 Jan, Viral gastroenteritis A08.4 [facility] [id number] [place] [address] 24504- 9000 Jan, [facility] [address] 23046- 7623 Dec, Controlled type 2 diabetes mellitus without complication, without long-term current use of insulin E11.9 [place] [address] 82392- 7006 Dec, [place] [address] 57822- 3249 Dec, Viral gastroenteritis A08.4 [place] [address] 24398- 0462 Nov, Viral gastroenteritis A08.4 [place] [address] 63965- 4410 Oct, Acute upper respiratory infection, unspecified J06.9 and Other viral agents as the cause of diseases classified elsewhere B97.89 [place] [address] 08683- 2113 Oct, Viral gastroenteritis A08.4 [place] [address] 64121- 6615 Oct, Controlled type 2 diabetes mellitus without complication, without long-term current use of insulin E11.9 ; Encounter for immunization Z23 and Acute pain of left foot M79.672 [place] [address] 75560- 3299 Sep, Viral gastroenteritis A08.4 [place] [address] 46690- 7472 Aug, Viral gastroenteritis A08.4 [place] [id number] [place] [address] 98395- 9314 Jul, Viral gastroenteritis A08.4 [facility] [address] 01592 -6096 Jul, Acute nasopharyngitis (common cold) J00 [place] [address] 09235- 8833 Jun, Viral gastroenteritis A08.4 [place] [address], [place] [address] 0592 Jun, [place] [id number] [place] [address] 75470- 0475 Jun, Viral gastroenteritis A08.4 [place] [id number] [place] [address] 94181- 7418 May, Patellar tendinitis, left knee M76.52 [place] [id number] [place] [address] 90859- 9820 May, Viral gastroenteritis A08.4 [place] [id number] [place] [address] 23787- 3112 Apr, Viral gastroenteritis A08.4 and Hypothyroidism, unspecified E03.9 [place] [id number] [place] [address] 79429- 5597 15 Apr, 2017 Pain in left knee M25.562 ; Acute left-sided low back pain without sciatica M54.5 and Type 2 diabetes mellitus without complications E11.9 [place] [id number] [place] [address] 66739- 8156 Apr, Viral gastroenteritis A08.4 [place] [id number] [place] [address] 27423- 7015 March, Viral gastroenteritis A08.4 [facility] [id number] [place] [address] 66821 -5502 Feb, Acute pain of left knee M25.562 [place] [address] [place] [address] 21992- 9372 Feb, Viral gastroenteritis A08.4 [place] [id number] [place] [address] 95120- 6109 16 Jan, 2017 Viral gastroenteritis A08.4 and Controlled type 2 diabetes mellitus without complication, without long-term current use of insulin E11.9 [place] [id number] [place] [address] 25607- 2599 Jan, [facility] [address], [place] [address]- 5945 16 Dec, 2016 Other chronic pain G89.29 ; Pain in left knee M25.562 ; Controlled type 2 diabetes mellitus without complication, without long-term current use of insulin E11.9 and Acute cystitis with hematuria N30.01 [facility] [id number] [place] [address] 83309- 2615 Dec, [facility] [id number] [place] [address] 15587- 0351 Nov, Type 2 diabetes mellitus without complications E11.9 [facility] [id number] [place] [address] 17060- 7613 Nov, [facility] [id number] [place] [address] 84070- 8590 Oct, [facility] [id number] [place] [address] 67851- 8380 Sep, [facility] [id number] [place] [address] 60930- 8443 Aug, [facility] [id number] [place] [address] 06722- 3120 Aug, [facility] [id number] [place] [address] 28925- 8437 Jul, Controlled type 2 diabetes mellitus without complication, without long-term current use of insulin E11.9 ; Callus of foot L84 and URI, acute J06.9 [facility] [address] [place] [address] 08191- 7994 Jul, [facility] [id number] [place] [address] 55260- 3084 Jun, Onychomycosis B35.1 and Nail ingrowing L60.0 [place] [id number] [place] [address] 81124- 0331 Jun, [place] [address], [place] [address]- 3776 Jun, Lumbar back pain with radiculopathy affecting left lower extremity M54.17 [facility] [address] [place] [address] 31707- 5813 Jun, [facility] [id number] [place] [address] 32452- 4785 Jun, Other chronic pain G89.29 [facility] [id number] [place] [address] 93743- 0251 Jun, Other chronic pain G89.29 [facility] [id number] [place] [address] 52530- 1936 Jun, Type 2 diabetes mellitus without complications E11.9 [place] [id number] [place] [address] 02606- 5941 Jun, [facility] [id number] [place] [address] 65291- 0504 Jun, Onychomycosis B35.1 ; Callus L84 and Rash R21 [place] [id number] [place] [address] 95310- 1244 May, [facility] [address] [place] [address] 05411- 6140 May, [facility] [address] [place] [address] 30001- 8008 May, Type 2 diabetes mellitus without complications E11.9 [facility] [address], [place] [address]- 1432 May, [facility] [id number] [place] [address] 90765- 4657 Apr, [place] [address] [place] [address] 79978- 6800 Apr, Type 2 diabetes mellitus without complications E11.9 ; Acquired hypothyroidism E03.9 ; Callus of foot L84 and Upper respiratory tract infection, unspecified type J06.9 [facility] [address], [place] [address]- 0226 March, [facility] [address] [place] [address] 71153- 1758 Feb, [facility] [id number], [place] [address]- 4693 Jan, Diabetes mellitus without mention of complication, type II or unspecified type, not stated as uncontrolled 250.00 [facility] [address], [place] [address]- 6588 28 Jan, 2016 [facility] [id number] [place] [address] 10062- 0698 16 Jan, 2016 Diabetes E11.9 and Hypothyroidism E03.9 [facility] [id number] [place] [address] 39778- 9925 Dec, Diarrhea R19.7 [facility] [address], [place] [address]- 8046 Dec, [facility] [address] [place] [address] 25110- 9658 Dec, Hypothyroidism, unspecified E03.9 [facility] [address], [place] [address]- 3602 Dec, [facility] [address], [place] [address]- 7388 Dec, Hypothyroidism, unspecified E03.9 [facility] [address], [place] [address]- 9573 04 Dec, 2015 Diarrhea R19.7 [facility] [address], [place] [address]- 9843 Dec, Diarrhea R19.7 [facility] [address], [place] [address]- 9972 Nov, [facility] [address], [place] [address]- 5995 Nov, [facility] [address], [place] [address]- 6829 Oct, [facility] [address] 8126 Sep, Postnasal drip R09.82 [facility] [id number] [place] [address] 36918- 0082 Sep, [facility] [address] [place] [address] 37197- 4061 Sep, [facility] [id number] [place] [address] 19354- 7445 Aug, [facility] [address] [place] [address] 96747- 8854 Aug, [facility] [id number] [place] [address] 15222- 0446 Jul, Hypothyroidism 244.9 [facility] [address] [place] [address] 49328- 3407 Jul, Diabetes mellitus without mention of complication, type II or unspecified type, not stated as uncontrolled 250.00 [facility] [address], [place] [address]- 3954 Jul, [facility] [address], [place] [address]- 5671 Jul, [facility] [address], [place] [address]- 2818 Jun, [facility] [id number] [place] [address] 35358- 8694 May, Other chronic pain 338.29 [facility] [address], [place] [address]- 6596 May, Other chronic pain 338.29 [facility] [address], [place] [address]- 3101 May, [facility] [address], [place] [address]- 7712 May, [facility] [id number], [place] [address]- 3365 Apr, Rash 782.1 ; Hypercholesterolemia 272.0 and Hypothyroidism 244.9 [facility] [id number] [place] [address] 03072- 6703 Apr, [facility] [address] [place] [address], [place] [address]- 0639 Apr, [facility] [id number] [place] [address] 57920- 7930 March, [facility] [id number] [address]- 0307 Feb, [facility] [address], [place] [address]- 5051 Feb, [facility] [address], [place] [address]- 1669 Jan, [facility] [address], [place] [address]- 7252 Jan, [facility] [address], [place] [address]- 3031 Jan, [facility] [address], [place] [address]- 1910 Jan, [facility] [id number], [place] [address]- 0373 Jan, [facility] [address], [place] [address]- 3505 Jan, [facility] [place] [facility] [address], [place] [address]- 2847 Jan, [facility] [id number] [place] [address]- 4853 16 Dec, 2014 [facility] [place] [facility] [address] [id number] [place] 8981 Dec, [facility] [place] [facility] [address] [id number] [place] [address]- 7305 Nov, [facility] [place] [facility] [address] [id number] [place] [address]- 3208 Nov, [facility] [place] [facility] [address] [id number] [place] [address]- 2087 Nov, [facility] [place] [facility] [address] [id number] [place] [address]- 9557 Nov, [facility] [place] [facility] [address] [id number] [place] [address]- 6693 Nov, [facility] [place] [facility] [address] [id number] [place] [address]- 0267 Nov, [facility] [place] [facility] [address] [id number] [place] [address]- 8722 Oct, [facility] [place] [facility] [address] [id number] [place] [address]- 5500 Oct, [facility] [place] [facility] [address] [id number] [place] [address]- 5443 Sep, [facility] [place] [facility] [address] [id number] [place] [address]- 1253 Sep, [facility] [place] [facility] [address] [id number] [place] [address]- 9928 Sep, [facility] [place] [facility] [address] [id number] [place]- 2138 Sep, [facility] [place] [facility] [address] [id number] [place] [address]- 4904 Aug, [facility] [place] [facility] [address] [id number] [place] [address]- 1816 Aug, [facility] [place] [facility] [address] [id number] [place] [address]- 0373 Jul, [facility] [place] [facility] [address] [id number] [place] [address]- 0155 Jul, [facility] [place] [facility] [address] [id number] [place] [address]- 5861 Jun, [facility] [place] [facility] [address] [id number] [place] [address]- 1345 Jun, [facility] [place] [facility] [address] [id number] [place] [address]- 7867 Jun, [facility] [place] [facility] [address] [id number] [place] [address]- 2535 Jun, [facility] [place] [facility] [address] [id number] [place] [address]- 9669 May, [facility] [place] [facility] [address] [id number] [place] [address]- 9458 May, [facility] [place] [facility] [address] [id number] [place] [address]- 2364 May, [facility] [place] [facility] [address] [id number] [place] [address]- 2138 May, [facility] [place] [facility] [address] [id number] [place] [address]- 2063 Apr, [facility] [place] [facility] [address] [id number] [place] [address]- 8529 Apr, [facility] [place] [facility] [address] [id number] [place] [address]- 9397 March, [facility] [place] [facility] [address] [id number] [place] [address]- 3197 March, [facility] [place] [facility] [address] [id number] [place] [address]- 9568 March, [facility] [place] [facility] [address] [id number] [place] [address]- 4870 March, [facility] [place] [facility] [address] [id number] [place] [address]- 6550 March, [facility] [place] [facility] [address] [id number] [place] 2709 March, [facility] [place] [facility] [address] [id number] [place] [address]- 6195 Feb, [facility] [place] [facility] [address] [id number] [place] [address]- 5435 Feb, [facility] [place] [facility] [address] [id number] [place] [address]- 9498 Feb, [facility] [place] [facility] [address] [id number] [place] [address]- 6076 Feb, [facility] [place] [facility] [address] [id number] [place] [address]- 2529 Feb, [facility] [place] [facility] [address] [id number] [place] [address]- 4475 Feb, [facility] [place] [facility] [address] [id number] [place] [address]- 2377 Feb, [facility] [place] [facility] [address] [id number] [place] [address]- 4834 Feb, [facility] [place] [facility] [address] [id number] [place] [address]- 1023 Jan, [facility] [place] [facility] [address] [id number] [place] [address]- 5671 Jan, [facility] [place] [facility] [address] [id number] [place] [address]- 0235 Jan, [facility] [place] [facility] [address] [id number] [place] [address]- 6672 Jan, [facility] [place] [facility] [address] [id number] [place] [address]- 1771 Jan, [facility] [place] [facility] [address] [id number] [place] [address]- 2200 13 Jan, 2014 [facility] [place] [facility] [address] [id number] [place] [address]- 1344 Jan, [facility] [place] [facility] [address] [id number] [place] [address]- 5668 Jan, [facility] [place] [facility] [address] [id number] [place] [address]- 2130 Jan, [facility] [place] [facility] [address] [id number] [place] [address]- 7038 Dec, [facility] [place] [facility] [address] [id number] [place] [address]- 3934 Dec, [facility] [place] [facility] [address] [id number] [place] [address]- 5602 Nov, [facility] [place] [facility] [address] [id number] [place] [address]- 0693 Nov, [facility] [place] [facility] [address] [id number] [place] [address]- 7388 Nov, [facility] [place] [facility] [address] [id number] [place] [address]- [address] Nov, [facility] [place] [facility] [address] [id number] [place] [address] Nov, [facility] [place] [facility] [address] [id number] [place] [address] Nov, [facility] [place] [facility] [address] [id number] [place] [address] Oct, [facility] [place] [facility] [address] [id number] [place] [address] Oct, [facility] [place] [facility] [address] [id number] [place] [address] Sep, [facility] [place] [facility] [address] [id number] [place] [address] Sep, [facility] [place] [facility] [address] [id number] [place] [address] Sep, [facility] [place] [facility] [address] [id number] [place] [address] Sep, [facility] [place] [facility] [address] [id number] [place] [address] Sep, [facility] [place] [facility] [address] [id number] [place] [address] Sep, [facility] [place] [facility] [address] [id number] [place] [address] Sep, [facility] [place] [facility] [address] [id number] [place] [address] Sep, [facility] [place] [facility] [address] [id number] [place] [address] Aug, [facility] [place] [facility] [address] [id number] [place] [address] Aug, [facility] [place] [facility] [address] [id number] [place] [address] Aug, [facility] [place] [facility] [address] [id number], [place] [address] Jul, [facility] [place] [facility] [address] [id number], [place] [address] Jul, [facility] [place] [facility] [address] [id number], [place] [address] Jul, [facility] [place] [facility] [address] [id number] [place] [address] Jun, [facility] [place] [facility] [address] [id number] [place] [address] Jun, [facility] [place] [facility] [address] [id number] [place] [address] Jun, [facility] [place] [facility] [address] [id number] [place] [address] Jun, [facility] [address] [id number] [place] [address] Jun, [facility] [address] [id number] [place] [address] Jun, [facility] [address] [id number] [place] [address] May, [facility] [address] [id number] [place] [address] May, [facility] [address] [id number] [place] [address] Apr, [facility] [address] [id number] [place] [address] Apr, [facility] [address] [id number] [place] [address] March, [facility] [address] [id number] [place] [address] Feb, [facility] [address] [id number] [place] [address] Feb, [facility] [address] [id number] [place] [address] Feb, [facility] [address] [id number] [place] [address] Feb, [facility] [facility] [address] [id number] [place] [address] Jan, [facility] [place] [facility] [address] [id number] [place] [address] Jan, [facility] [place] [facility] [address] [id number] [place] [address] Jan, [facility] [address] [id number] [place] [address] Jan, [facility] [address] [id number] [place] [address] Jan, [facility] [place] [facility] [address] [id number] [place] [address] Dec, [facility] [place] [facility] [address] [id number] [place] [address] Nov, [facility] [place] [facility] [address] [id number] [place] [address] Nov, [facility] [place] [facility] [address] [id number] [place] [address] Oct, [facility] [place] [facility] [address] [id number] [place] [address] Oct, [facility] [address] [id number] [place] [address] Oct, [facility] [place] [facility] [address] [id number] [place] [address] Oct, [facility] [place] [facility] [address] [id number] [place] [address] Oct, [facility] [place] [facility] [address] [id number] [place] [address] Oct, [facility] [place] [facility] [address] [id number] [place] [address] Oct, [facility] [place] [facility] [address] [id number] [place] [address] Oct, [facility] [place] [facility] [address] [id number] [place] [address] Aug, [facility] [place] [facility] [address] [id number] [place] [address] Aug, [facility] [place] [facility] [address] [id number] [place] [address] Aug, [facility] [place] [facility] [address] [id number] [place] [address] Aug, [facility] [place] [facility] [address] [id number] [place] [address] Aug, [facility] [place] [facility] [address] [id number] [place] [address]- [address] 19 Aug, 2012 [facility] [place] [facility] [address] [id number] [place] [address]- [address] 15 Aug, 2012 [facility] [place] [facility] [address] [id number] [place] [address]- [address] 27 Jul, 2012 [facility] [place] [facility] [address] [id number] [place] [address]- [address]26 27 Jul, 2012 [facility] [place] [facility] [address] [id number] [place] [address]- [address]66 27 Jul, 2012 [facility] [place] [facility] [address] [id number] [place] [address]- [address] 27 Jul, 2012 [facility] [place] [facility] [address] [id number] [place] [address] 03 Jul, 2012 [facility] [place] [facility] [address] [id number] [place] [address]- [address] Jun, [facility] [place] [facility] [address] [id number] [place] [address] Jun, [facility] [place] [facility] [address] [id number] [place] [address] Jun, [facility] [place] [facility] [address] [id number] [place] [address] May, [facility] [place] [facility] [address] [id number] [place] [address] May, [facility] [place] [facility] [address] [id number] [place] [address] May, [facility] [place] [facility] [address] [id number] [place] [address] 9429 May, [facility] [place] [facility] [address] [id number] [place] [address]- [address] 23 May, 2012 [facility] [address] [id number] [place] [address] 17 May, 2012 [facility] [place] [facility] [address] [id number] [place] [address] May, [facility] [address] [id number] [place] [address] Apr, [facility] [place] [facility] [address] [id number] [place] [address]- [address] Apr, [facility] [address] [id number] [place] [address] March, [facility] [address] [id number] [place] [address]- [address] Feb, [facility] [address] [id number] [place] [address] 30 Jan, 2012 [facility] [address] [id number] [place] [address] Jan, [facility] [place] [facility] [address] [id number] [place] [address] 133[address] Jan, [facility] [address] [id number] [place] [address]- 1410 Jan, [facility] [place] [facility] [address] [id number] [place] [address] 2546 Jan, [facility] [place] [facility] [address] [id number] [place] [address] 25[address] Jan, [facility] [place] [facility] [address] [id number] [place] [address]- [address] Jan, [facility] [place] [facility] [address] [id number] [place] [address]- [address] Jan, [facility] [place] [facility] [address] [id number] [place] [address]- [address]99 Jan, [facility] [address] [id number] [place] [address]- 89[address] Jan, [facility] [place] [facility] [address] [id number] [place] [address]- 2636 Dec, [facility] [place] [facility] [address] [id number] [place] [address]- [address]842 Dec, [facility] [place] [facility] [address] [id number] [place] [address]- [address] Dec, [facility] [place] [facility] [address] [id number] [place] [address]- 1145 Dec, [facility] [place] [facility] [address] [id number] [place] [address] 1933 Dec, [facility] [place] [facility] [address] [id number] [place] [address] Dec, [facility] [place] [facility] [address] [id number] [place] [address] Dec, [facility] [place] [facility] [address] [id number] [place] [address] Dec, [facility] [place] [facility] [address] [id number] [place] [address]- 8023 Nov, [facility] [place] [facility] [address] [id number] [place] [address]- 6450 Nov, [facility] [place] [facility] [address] [id number] [place] [address]- 4078 Nov, [facility] [place] [facility] [address] [id number] [place] [address] Oct, [facility] [place] [facility] [address] [id number] [place] [address] Oct, [facility] [place] [facility] [address] [id number] [place] [address]- 4290 Oct, [facility] [place] [facility] [address] [facility] [id number] [place] [address] Oct, [facility] [address] [facility] [id number] [place] [address] Sep, IMMUNIZATIONS No Known Immunizations SOCIAL HISTORY Never Assessed REASON FOR VISIT Controlled Med Refill 06/21/18 PLAN OF CARE VITAL SIGNS MEDICATIONS Medication Instructions Dosage Frequency Start Date End Date Duration Status [place] 10-325 MG Orally every 6 hrs 1 tablet as needed 6h May, 28 days Active RESULTS No Results PROCEDURES [...]
--- OUTSIDE RECORDS SUMMARY | 2019-01-07 23:50 | XMS REPORT ---
Author Author NALINI GOMEZ Organization [facility] Address [address] [place] [address] Care Team Providers Care J2Ee Engineer Name Role Phone NALINI GOMEZ Unavailable PROBLEMS Type Condition ICD9-CM Code CCC59-HZ Code Onset Dates Condition Status SNOMED Code Problem Hypothyroidism, unspecified E03.9 Active 75823182 Problem Hypothyroidism (acquired) E03.9 Active 51847750 Problem Acquired hypothyroidism E03.9 Active 201369903 Problem Other chronic pain G89.29 Active 85334366 Problem Hypertension, benign I10 Active 27518317 Problem Episode of recurrent major depressive disorder, unspecified depression episode severity F33.9 Active 579528142 Problem Mixed hyperlipidemia E78.2 Active 126194461 Problem Stress incontinence of urine N39.3 Active 17235930 Problem Urinary, incontinence, stress female N39.3 Active 63994558 Problem Hypercholesterolemia 272.0 Active 62851586 Problem Type 2 diabetes mellitus without complications E11.9 Active 821961986 Problem Other chronic pain G89.29 Active 76582216 Problem Panlobular emphysema J43.1 Active 3658832 Problem Controlled type 2 diabetes mellitus without complication, without long -term current use of insulin E11.9 Active 521370919 ALLERGIES No Information ENCOUNTERS Encounter Location Date Diagnosis [facility] [address] [address] Jun, [facility] [address] [address] 9276 Jun, Other chronic pain G89.29 [facility] [id number] [place] [address] 92143- 4432 Jun, Other chronic pain G89.29 [facility] [id number] [address]69 Jun, Stress incontinence of urine N39.3 ; Controlled type 2 diabetes mellitus without complication, without long-term current use of insulin E11.9 and Hypertension, benign I10 [place] [id number] [place] [address] 11293- 8664 Jun, [place] [address] 45709- 3447 Jun, [place] [address] 01291- 3132 May, [place] [address] 76973- 6884 May, Viral gastroenteritis A08.4 [place] [address] 48001- 8091 May, Acute diffuse otitis externa of left ear H60.312 and Acquired hypothyroidism E03.9 [place] [address] 64999- 5423 May, Episode of recurrent major depressive disorder, unspecified depression episode severity F33.9 ; Urinary, incontinence, stress female N39.3 ; Mixed hyperlipidemia E78.2 and Hypothyroidism (acquired) E03.9 [place] [id number] [place] [address] 24982- 8936 May, [place] [address] 33673- 9995 May, Viral gastroenteritis A08.4 [place] [address] 82451- 0561 Apr, Acute diffuse otitis externa of left ear H60.312 and Hypothyroidism (acquired) E03.9 [place] [address] 30310- 4032 Apr, Viral gastroenteritis A08.4 and Acquired hypothyroidism E03.9 [place] [id number] [place] [address] 98034- 2525 Apr, Type 2 diabetes mellitus without complications E11.9 and Panlobular emphysema J43.1 [facility] [id number] [place] [address] 77151- 1890 Apr, Viral gastroenteritis A08.4 [facility] [address] 48340- 6168 March, [facility] [address] 82249- 5659 March, Viral gastroenteritis A08.4 [facility] [address] 01026- 5967 Feb, Panlobular emphysema J43.1 [facility] [address] 28956- 0534 Feb, Panlobular emphysema J43.1 [place] [address] 35730- 2074 Feb, [facility] [address] 47946- 2342 Feb, [facility] [id number] [place] [address] 93600- 9070 Feb, Viral gastroenteritis A08.4 [place] [id number] [place] [address] 65081- 4841 Feb, Head lice B85.0 [place] [id number] [place] [address] 59160- 9102 Feb, Medicare annual wellness visit, initial Z00.00 ; Head lice B85.0 ; Tinea corporis B35.4 and Enlarged lymph node R59.9 [place] [id number] [place] [address] 52902- 3807 Jan, Viral gastroenteritis A08.4 [facility] [id number] [place] [address] 81322- 6815 Jan, [facility] [address] 47997- 4974 Dec, Controlled type 2 diabetes mellitus without complication, without long-term current use of insulin E11.9 [place] [address] 84839- 6589 Dec, [place] [address] 68812- 3377 Dec, Viral gastroenteritis A08.4 [place] [address] 31428- 8557 Nov, Viral gastroenteritis A08.4 [place] [address] 62494- 9456 Oct, Acute upper respiratory infection, unspecified J06.9 and Other viral agents as the cause of diseases classified elsewhere B97.89 [place] [address] 33342- 8415 Oct, Viral gastroenteritis A08.4 [place] [address] 09858- 5595 Oct, Controlled type 2 diabetes mellitus without complication, without long-term current use of insulin E11.9 ; Encounter for immunization Z23 and Acute pain of left foot M79.672 [place] [address] 90207- 5184 Sep, Viral gastroenteritis A08.4 [place] [address] 68743- 0863 Aug, Viral gastroenteritis A08.4 [place] [id number] [place] [address] 84908- 4839 Jul, Viral gastroenteritis A08.4 [facility] [address] 07575 -7204 Jul, Acute nasopharyngitis (common cold) J00 [place] [address] 69959- 7578 Jun, Viral gastroenteritis A08.4 [place] [address] [address]- 1313 Jun, [place] [id number] [place] [address] 31004- 2916 Jun, Viral gastroenteritis A08.4 [place] [id number] [place] [address] 79248- 6295 May, Patellar tendinitis, left knee M76.52 [place] [id number] [place] [address] 15832- 3831 May, Viral gastroenteritis A08.4 [place] [id number] [place] [address] 57409- 7501 Apr, Viral gastroenteritis A08.4 and Hypothyroidism, unspecified E03.9 [place] [id number] [place] [address] 34167- 0202 15 Apr, 2017 Pain in left knee M25.562 ; Acute left-sided low back pain without sciatica M54.5 and Type 2 diabetes mellitus without complications E11.9 [place] [id number] [place] [address] 38236- 5091 Apr, Viral gastroenteritis A08.4 [place] [id number] [place] [address] 93717- 6959 March, Viral gastroenteritis A08.4 [facility] [address] [place] [address] 51107 -4631 Feb, Acute pain of left knee M25.562 [place] [id number] [place] [address] 19098- 3801 Feb, Viral gastroenteritis A08.4 [place] [id number] [place] [address] 16646- 4852 16 Jan, 2017 Viral gastroenteritis A08.4 and Controlled type 2 diabetes mellitus without complication, without long-term current use of insulin E11.9 [place] [id number] [place] [address] 75891- 4083 Jan, [facility] [address] [address]- 3502 16 Dec, 2016 Other chronic pain G89.29 ; Pain in left knee M25.562 ; Controlled type 2 diabetes mellitus without complication, without long-term current use of insulin E11.9 and Acute cystitis with hematuria N30.01 [facility] [id number] [place] [address] 22643- 7678 Dec, [facility] [id number] [place] [address] 27458- 9288 Nov, Type 2 diabetes mellitus without complications E11.9 [facility] [id number] [place] [address] 63431- 7421 Nov, [facility] [id number] [place] [address] 11673- 2482 Oct, [facility] [id number] [place] [address] 15089- 7771 Sep, [facility] [id number] [place] [address] 53741- 2923 Aug, [facility] [id number] [place] [address] 59077- 2548 Aug, [facility] [id number] [place] [address] 58732- 6981 Jul, Controlled type 2 diabetes mellitus without complication, without long-term current use of insulin E11.9 ; Callus of foot L84 and URI, acute J06.9 [facility] [address] [place] [address] 03418- 5314 Jul, [facility] [id number] [place] [address] 79339- 9652 Jun, Onychomycosis B35.1 and Nail ingrowing L60.0 [place] [id number] [place] [address] 40337- 2672 Jun, [place] [address] [address]- 4961 Jun, Lumbar back pain with radiculopathy affecting left lower extremity M54.17 [facility] [address] [place] [address] 73928- 1031 Jun, [facility] [id number] [place] [address] 11127- 9870 Jun, Other chronic pain G89.29 [facility] [id number] [place] [address] 04995- 7714 Jun, Other chronic pain G89.29 [facility] [id number] [place] [address] 94120- 1789 Jun, Type 2 diabetes mellitus without complications E11.9 [place] [id number] [place] [address] 65333- 2752 Jun, [facility] [id number] [place] [address] 22755- 2378 Jun, Onychomycosis B35.1 ; Callus L84 and Rash R21 [place] [id number] [place] [address] 96459- 4109 May, [facility] [address] [place] [address] 16187- 6807 May, [facility] [id number] [place] [address] 66191- 9573 May, Type 2 diabetes mellitus without complications E11.9 [facility] [address] [address]- 0735 May, [facility] [id number] [place] [address] 86798- 1205 Apr, [place] [address] [place] [address] 72690- 7112 Apr, Type 2 diabetes mellitus without complications E11.9 ; Acquired hypothyroidism E03.9 ; Callus of foot L84 and Upper respiratory tract infection, unspecified type J06.9 [facility] [address] [address]- 4293 March, [facility] [id number] [place] [address] 06687- 2064 Feb, [facility] [id number] [address]- 3797 Jan, Diabetes mellitus without mention of complication, type II or unspecified type, not stated as uncontrolled 250.00 [facility] [address] [address]- 0298 28 Jan, 2016 [facility] [id number] [place] [address] 24367- 1447 16 Jan, 2016 Diabetes E11.9 and Hypothyroidism E03.9 [facility] [id number] [place] [address] 85446- 9417 Dec, Diarrhea R19.7 [facility] [address] [address]- 4087 Dec, [facility] [id number] [place] [address] 20865- 6862 Dec, Hypothyroidism, unspecified E03.9 [facility] [address] [address]- 8816 Dec, [facility] [address] [address]- 2675 Dec, Hypothyroidism, unspecified E03.9 [facility] [address] [address]- 0996 04 Dec, 2015 Diarrhea R19.7 [facility] [address] [address]- 3853 Dec, Diarrhea R19.7 [facility] [address] [address]- 3932 Nov, [facility] [address] [address]- 2946 Nov, [facility] [address] [address]- 7432 Oct, [facility] [address] 9946 Sep, Postnasal drip R09.82 [facility] [id number] [place] [address] 14298- 6706 Sep, [facility] [address] [place] [address] 53598- 5150 Sep, [facility] [id number] [place] [address] 39778- 4871 Aug, [facility] [address] [place] [address] 57650- 1473 Aug, [facility] [id number] [place] [address] 30509- 1319 Jul, Hypothyroidism 244.9 [facility] [address] [place] [address] 13962- 5924 Jul, Diabetes mellitus without mention of complication, type II or unspecified type, not stated as uncontrolled 250.00 [facility] [address] [address]- 4108 Jul, [facility] [address] [address]- 9513 Jul, [facility] [address] [address]- 7876 Jun, [facility] [id number] [place] [address] 17888- 7567 May, Other chronic pain 338.29 [facility] [address] [address]- 4799 May, Other chronic pain 338.29 [facility] [address] [address]- 6459 May, [facility] [address] [address]- 5666 May, [facility] [id number] [address]- 6904 Apr, Rash 782.1 ; Hypercholesterolemia 272.0 and Hypothyroidism 244.9 [facility] [id number] [place] [address] 27103- 7535 Apr, [facility] [id number] [place] [address], [place] [address]- 6269 Apr, [facility] [id number] [place] [address] 25264- 3734 March, [facility] [id number] [address]- 2736 Feb, [facility] [address] [address]- 9738 Feb, [facility] [address] [address]- 5564 Jan, [facility] [address] [address]- 8829 Jan, [facility] [address] [address]- 7253 Jan, [facility] [address] [address]- 7926 Jan, [facility] [id number] [address]- 3241 Jan, [facility] [address] [address]- 9838 Jan, [facility] [place] [facility] [address] [address]- 8701 Jan, [facility] [id number] [address]- 8814 16 Dec, 2014 [facility] [place] [facility] [address] [id number] [place] 2983 Dec, [facility] [place] [facility] [address] [id number] [place] [address]- 2234 Nov, [facility] [place] [facility] [address] [id number] [place] [address]- 1079 Nov, [facility] [place] [facility] [address] [id number] [place] [address]- 7311 Nov, [facility] [place] [facility] [address] [id number] [place] [address]- 3967 Nov, [facility] [place] [facility] [address] [id number] [place] [address]- 0265 Nov, [facility] [place] [facility] [address] [id number] [place] [address]- 9344 Nov, [facility] [place] [facility] [address] [id number] [place] [address]- 7259 Oct, [facility] [place] [facility] [address] [id number] [place] [address]- 2280 Oct, [facility] [place] [facility] [address] [id number] [place] [address]- 8324 Sep, [facility] [place] [facility] [address] [id number] [place] [address]- 9076 Sep, [facility] [place] [facility] [address] [id number] [place] [address]- 3259 Sep, [facility] [place] [facility] [address] [id number] [place] 0047 Sep, [facility] [place] [facility] [address] [id number] [place] [address]- 0834 Aug, [facility] [place] [facility] [address] [id number] [place] [address]- 3722 Aug, [facility] [place] [facility] [address] [id number] [place] [address]- 7079 Jul, [facility] [place] [facility] [address] [id number] [place] [address]- 8168 Jul, [facility] [place] [facility] [address] [id number] [place] [address]- 0006 Jun, [facility] [place] [facility] [address] [id number] [place] [address]- 2683 Jun, [facility] [place] [facility] [address] [id number] [place] [address]- 7097 Jun, [facility] [place] [facility] [address] [id number] [place] [address]- 6842 Jun, [facility] [place] [facility] [address] [id number] [place] [address]- 0174 May, [facility] [place] [facility] [address] [id number] [place] [address]- 3018 May, [facility] [place] [facility] [address] [id number] [place] [address]- 6261 May, [facility] [place] [facility] [address] [id number] [place] [address]- 7976 May, [facility] [place] [facility] [address] [id number] [place] [address]- 3434 Apr, [facility] [place] [facility] [address] [id number] [place] [address]- 6058 Apr, [facility] [place] [facility] [address] [id number] [place] [address]- 6137 March, [facility] [place] [facility] [address] [id number] [place] [address]- 3281 March, [facility] [place] [facility] [address] [id number] [place] [address]- 5196 March, [facility] [place] [facility] [address] [id number] [place] [address]- 1633 March, [facility] [place] [facility] [address] [id number] [place] [address]- 1496 March, [facility] [place] [facility] [address] [id number] [place] 1337 March, [facility] [place] [facility] [address] [id number] [place] [address]- 7568 Feb, [facility] [place] [facility] [address] [id number] [place] [address]- 6005 Feb, [facility] [place] [facility] [address] [id number] [place] [address]- 4333 Feb, [facility] [place] [facility] [address] [id number] [place] [address]- 0150 Feb, [facility] [place] [facility] [address] [id number] [place] [address]- 2446 Feb, [facility] [place] [facility] [address] [id number] [place] [address]- 2627 Feb, [facility] [place] [facility] [address] [id number] [place] [address]- 4613 Feb, [facility] [place] [facility] [address] [id number] [place] [address]- 4218 Feb, [facility] [place] [facility] [address] [id number] [place] [address]- 9416 Jan, [facility] [place] [facility] [address] [id number] [place] [address]- 3045 Jan, [facility] [place] [facility] [address] [id number] [place] [address]- 5827 Jan, [facility] [place] [facility] [address] [id number] [place] [address]- 5131 Jan, [facility] [place] [facility] [address] [id number] [place] [address]- 6607 Jan, [facility] [place] [facility] [address] [id number] [place] [address]- 6885 13 Jan, 2014 [facility] [place] [facility] [address] [id number] [place] [address]- 8686 Jan, [facility] [place] [facility] [address] [id number] [place] [address]- 7627 Jan, [facility] [place] [facility] [address] [id number] [place] [address]- 4784 Jan, [facility] [place] [facility] [address] [id number] [place] [address]- 0591 Dec, [facility] [place] [facility] [address] [id number] [place] [address]- 3813 Dec, [facility] [place] [facility] [address] [id number] [place] [address]- 1733 Nov, [facility] [place] [facility] [address] [id number] [place] [address]- 8132 Nov, [facility] [place] [facility] [address] [id number] [place] [address] Nov, [facility] [place] [facility] [address] [id number] [place] [address] Nov, [facility] [place] [facility] [address] [id number] [place] [address] Nov, [facility] [facility] [address] [id number] [place] [address] Nov, [facility] [facility] [address] [id number] [place] [address] Oct, [facility] [place] [facility] [address] [id number] [place] [address] Oct, [facility] [place] [facility] [address] [id number] [place] [address] Sep, [facility] [place] [facility] [address] [id number] [place] [address] Sep, [facility] [place] [facility] [address] [id number] [place] [address] Sep, [facility] [place] [facility] [address] [id number] [place] [address] Sep, [facility] [place] [facility] [address] [id number] [place] [address] Sep, [facility] [place] [facility] [address] [id number] [place] [address] Sep, [facility] [place] [facility] [address] [id number] [place] [address] Sep, [facility] [place] [facility] [address] [id number] [place] [address] Sep, [facility] [place] [facility] [address] [id number] [place] [address] Aug, [facility] [place] [facility] [address] [id number] [place] [address] Aug, [facility] [place] [facility] [address] [id number] [place] [address] Aug, [facility] [place] [facility] [address] [id number] [address] Jul, [facility] [place] [facility] [address] [id number] [address] Jul, [facility] [place] [facility] [address] [id number] [address] Jul, [facility] [place] [facility] [address] [id number] [place] [address] Jun, [facility] [place] [facility] [address] [id number] [place] [address] Jun, [facility] [place] [facility] [address] [id number] [place] [address] Jun, [facility] [place] [facility] [address] [id number] [place] [address] Jun, [facility] [address] [id number] [place] [address] Jun, [facility] [address] [id number] [place] [address] Jun, [facility] [address] [id number] [place] [address] May, [facility] [address] [id number] [place] [address] May, [facility] [address] [id number] [place] [address] Apr, [facility] [address] [id number] [place] [address] Apr, [facility] [address] [id number] [place] [address] March, [facility] [address] [id number] [place] [address] Feb, [facility] [address] [id number] [place] [address] Feb, [facility] [address] [id number] [place] [address] Feb, [facility] [address] [id number] [place] [address] Feb, [facility] [address] [id number] [place] [address] Jan, [facility] [place] [facility] [address] [id number] [place] [address] Jan, [facility] [place] [facility] [address] [id number] [place] [address] Jan, [facility] [address] [id number] [place] [address] Jan, [facility] [address] [id number] [place] [address] Jan, [facility] [place] [facility] [address] [id number] [place] [address] Dec, [facility] [place] [facility] [address] [id number] [place] [address] Nov, [facility] [place] [facility] [address] [id number] [place] [address] Nov, [facility] [place] [facility] [address] [id number] [place] [address] Oct, [facility] [place] [facility] [address] [id number] [place] [address] Oct, [facility] [address] [id number] [place] [address] Oct, [facility] [place] [facility] [address] [id number] [place] [address] Oct, [facility] [place] [facility] [address] [id number] [place] [address] 1993 Oct, [facility] [place] [facility] [address] [id number] [place] [address] Oct, [facility] [place] [facility] [address] [id number] [place] [address] Oct, [facility] [place] [facility] [address] [id number] [place] [address] Oct, [facility] [place] [facility] [address] [id number] [place] [address] Aug, [facility] [place] [facility] [address] [id number] [place] [address] Aug, [facility] [place] [facility] [address] [id number] [place] [address] Aug, [facility] [place] [facility] [address] [id number] [place] [address] Aug, [facility] [place] [facility] [address] [id number] [place] [address] Aug, [facility] [place] [facility] [address] [id number] [place] [address] 19 Aug, 2012 [facility] [place] [facility] [address] [id number] [place] [address] 15 Aug, 2012 [facility] [place] [facility] [address] [id number] [place] [address]66 27 Jul, 2012 [facility] [place] [facility] [address] [id number] [place] [address] 27 Jul, 2012 [facility] [place] [facility] [address] [id number] [place] [address] 27 Jul, 2012 [facility] [place] [facility] [address] [id number] [place] [address] 27 Jul, 2012 [facility] [place] [facility] [address] [id number] [place] [address] 03 Jul, 2012 [facility] [place] [facility] [address] [id number] [place] [address] Jun, [facility] [place] [facility] [address] [id number] [place] [address] 49[address] Jun, [facility] [place] [facility] [address] [id number] [place] [address] Jun, [facility] [place] [facility] [address] [id number] [place] [address] May, [facility] [place] [facility] [address] [id number] [place] [address] May, [facility] [place] [facility] [address] [id number] [place] [address] 74[address] May, [facility] [place] [facility] [address] [id number] [place] [address] May, [facility] [place] [facility] [address] [id number] [place] [address] 23 May, 2012 [facility] [address] [id number] [place] [address] 17 May, 2012 [facility] [place] [facility] [address] [id number] [place] [address] May, [facility] [address] [id number] [place] [address] Apr, [facility] [place] [facility] [address] [id number] [place] [address] Apr, [facility] [address] [id number] [place] [address] March, [facility] [address] [id number] [place] [address] Feb, [facility] [address] [id number] [place] [address] 30 Jan, 2012 [facility] [address] [id number] [place] [address] Jan, [facility] [place] [facility] [address] [id number] [place] [address] Jan, [facility] [address] [id number] [place] [address] Jan, [facility] [place] [facility] [address] [id number] [place] [address] 25[address] Jan, [facility] [place] [facility] [address] [id number] [place] [address] 25[address] Jan, [facility] [place] [facility] [address] [id number] [place] [address] 33[address] Jan, [facility] [place] [facility] [address] [id number] [place] [address] Jan, [facility] [place] [facility] [address] [id number] [place] [address] Jan, [facility] [address] [id number] [place] [address]- [address] Jan, [facility] [place] [facility] [address] [id number] [place] [address] Dec, [facility] [place] [facility] [address] [id number] [place] [address] Dec, [facility] [place] [facility] [address] [id number] [place] [address] Dec, [facility] [place] [facility] [address] [id number] [place] [address] 359[address] Dec, [facility] [place] [facility] [address] [id number] [place] [address] 0068 Dec, [facility] [place] [facility] [address] [id number] [place] [address] Dec, [facility] [place] [facility] [address] [id number] [place] [address] Dec, [facility] [place] [facility] [address] [id number] [place] [address] Dec, [facility] [place] [facility] [address] [id number] [place] [address] 8805 Nov, [facility] [place] [facility] [address] [id number] [place] [address]- 1088 Nov, [facility] [place] [facility] [address] [id number] [place] [address]- [address] Nov, [facility] [place] [facility] [address] [id number] [place] [address] Oct, [facility] [place] [facility] [address] [id number] [place] [address] Oct, [facility] [place] [facility] [address] [id number] [place] [address] 75[address] Oct, [facility] [place] [facility] [address] [facility] [id number] [place] [address] Oct, [facility] [address] [facility] [id number] [place] [address] [address] Sep, IMMUNIZATIONS No Known Immunizations SOCIAL HISTORY Never Assessed REASON FOR VISIT PLAN OF CARE VITAL SIGNS MEDICATIONS Medication Instructions Dosage Frequency Start Date End Date Duration Status Incontinence Brief Large - as directed 8h Jun, Active RESULTS No Results PROCEDURES No Known [...]
--- OUTSIDE RECORDS SUMMARY | 2019-01-07 23:51 | XMS REPORT ---
Author Author NALINI GOMEZ Organization [facility] Address [address] [place] [address] Care Team Providers Care It Technical Support Specialist Name Role Phone NALINI GOMEZ Unavailable PROBLEMS Type Condition ICD9-CM Code HNB65-SA Code Onset Dates Condition Status SNOMED Code Problem Hypothyroidism, unspecified E03.9 Active 98421227 Problem Hypothyroidism (acquired) E03.9 Active 37699171 Problem Acquired hypothyroidism E03.9 Active 361870951 Problem Other chronic pain G89.29 Active 55010279 Problem Hypertension, benign I10 Active 41251238 Problem Episode of recurrent major depressive disorder, unspecified depression episode severity F33.9 Active 339909766 Problem Mixed hyperlipidemia E78.2 Active 651520845 Problem Stress incontinence of urine N39.3 Active 37466852 Problem Urinary, incontinence, stress female N39.3 Active 53758505 Problem Hypercholesterolemia 272.0 Active 25265393 Problem Type 2 diabetes mellitus without complications E11.9 Active 110667090 Problem Other chronic pain G89.29 Active 95266871 Problem Panlobular emphysema J43.1 Active 5161229 Problem Controlled type 2 diabetes mellitus without complication, without long -term current use of insulin E11.9 Active 176201332 ALLERGIES No Information ENCOUNTERS Encounter Location Date Diagnosis [facility] [address] [address] Jun, [facility] [address] [address] 4[address] Jun, Other chronic pain G89.29 [facility] [address] [place] [address] 84912- 5479 Jun, Other chronic pain G89.29 [facility] [id number] [address] Jun, Stress incontinence of urine N39.3 ; Controlled type 2 diabetes mellitus without complication, without long-term current use of insulin E11.9 and Hypertension, benign I10 [place] [id number] [place] [address] 43209- 4856 Jun, [place] [address] 51652- 4055 Jun, [place] [address] 99273- 5336 May, [place] [address] 98234- 6816 May, Viral gastroenteritis A08.4 [place] [address] 51732- 2556 May, Acute diffuse otitis externa of left ear H60.312 and Acquired hypothyroidism E03.9 [place] [address] 33885- 4195 May, Episode of recurrent major depressive disorder, unspecified depression episode severity F33.9 ; Urinary, incontinence, stress female N39.3 ; Mixed hyperlipidemia E78.2 and Hypothyroidism (acquired) E03.9 [place] [id number] [place] [address] 11994- 8736 May, [place] [address] 55211- 7262 May, Viral gastroenteritis A08.4 [place] [address] 21310- 5069 Apr, Acute diffuse otitis externa of left ear H60.312 and Hypothyroidism (acquired) E03.9 [place] [address] 33159- 3328 Apr, Viral gastroenteritis A08.4 and Acquired hypothyroidism E03.9 [place] [id number] [place] [address] 61188- 4833 Apr, Type 2 diabetes mellitus without complications E11.9 and Panlobular emphysema J43.1 [facility] [id number] [place] [address] 35955- 3505 Apr, Viral gastroenteritis A08.4 [facility] [address] 03014- 9778 March, [facility] [address] 98987- 5962 March, Viral gastroenteritis A08.4 [facility] [address] 27932- 5885 Feb, Panlobular emphysema J43.1 [facility] [address] 35064- 3671 Feb, Panlobular emphysema J43.1 [place] [address] 30308- 8694 Feb, [facility] [address] 41386- 5456 Feb, [facility] [id number] [place] [address] 02257- 7961 Feb, Viral gastroenteritis A08.4 [place] [id number] [place] [address] 38712- 2336 Feb, Head lice B85.0 [place] [id number] [place] [address] 32939- 5342 Feb, Medicare annual wellness visit, initial Z00.00 ; Head lice B85.0 ; Tinea corporis B35.4 and Enlarged lymph node R59.9 [place] [id number] [place] [address] 77839- 4377 Jan, Viral gastroenteritis A08.4 [facility] [id number] [place] [address] 84632- 8067 Jan, [facility] [address] 18358- 1278 Dec, Controlled type 2 diabetes mellitus without complication, without long-term current use of insulin E11.9 [place] [address] 97869- 0964 Dec, [place] [address] 77855- 2176 Dec, Viral gastroenteritis A08.4 [place] [address] 22924- 5093 Nov, Viral gastroenteritis A08.4 [place] [address] 24749- 3260 Oct, Acute upper respiratory infection, unspecified J06.9 and Other viral agents as the cause of diseases classified elsewhere B97.89 [place] [address] 94797- 7586 Oct, Viral gastroenteritis A08.4 [place] [address] 05261- 9692 Oct, Controlled type 2 diabetes mellitus without complication, without long-term current use of insulin E11.9 ; Encounter for immunization Z23 and Acute pain of left foot M79.672 [place] [address] 71134- 2648 Sep, Viral gastroenteritis A08.4 [place] [address] 34992- 3992 Aug, Viral gastroenteritis A08.4 [place] [id number] [place] [address] 59328- 8588 Jul, Viral gastroenteritis A08.4 [facility] [address] 00058 -0417 Jul, Acute nasopharyngitis (common cold) J00 [place] [address] 50364- 2832 Jun, Viral gastroenteritis A08.4 [place] [address] [address]- 1671 Jun, [place] [id number] [place] [address] 74038- 4121 Jun, Viral gastroenteritis A08.4 [place] [id number] [place] [address] 01988- 1175 May, Patellar tendinitis, left knee M76.52 [place] [id number] [place] [address] 43005- 8430 May, Viral gastroenteritis A08.4 [place] [id number] [place] [address] 24578- 2340 Apr, Viral gastroenteritis A08.4 and Hypothyroidism, unspecified E03.9 [place] [id number] [place] [address] 96304- 6989 15 Apr, 2017 Pain in left knee M25.562 ; Acute left-sided low back pain without sciatica M54.5 and Type 2 diabetes mellitus without complications E11.9 [place] [id number] [place] [address] 23495- 4078 Apr, Viral gastroenteritis A08.4 [place] [id number] [place] [address] 54155- 3173 March, Viral gastroenteritis A08.4 [facility] [address] [place] [address] 50485 -5877 Feb, Acute pain of left knee M25.562 [place] [address] [place] [address] 29206- 1935 Feb, Viral gastroenteritis A08.4 [place] [id number] [place] [address] 56962- 2581 16 Jan, 2017 Viral gastroenteritis A08.4 and Controlled type 2 diabetes mellitus without complication, without long-term current use of insulin E11.9 [place] [id number] [place] [address] 10235- 2161 Jan, [facility] [address] [address]- 3692 16 Dec, 2016 Other chronic pain G89.29 ; Pain in left knee M25.562 ; Controlled type 2 diabetes mellitus without complication, without long-term current use of insulin E11.9 and Acute cystitis with hematuria N30.01 [facility] [id number] [place] [address] 84163- 6156 Dec, [facility] [id number] [place] [address] 66595- 7893 Nov, Type 2 diabetes mellitus without complications E11.9 [facility] [id number] [place] [address] 45707- 6348 Nov, [facility] [id number] [place] [address] 77628- 9384 Oct, [facility] [id number] [place] [address] 76865- 5987 Sep, [facility] [id number] [place] [address] 09413- 8854 Aug, [facility] [id number] [place] [address] 03028- 8577 Aug, [facility] [id number] [place] [address] 09341- 7078 Jul, Controlled type 2 diabetes mellitus without complication, without long-term current use of insulin E11.9 ; Callus of foot L84 and URI, acute J06.9 [facility] [address] [place] [address] 51661- 3350 Jul, [facility] [id number] [place] [address] 89146- 4422 Jun, Onychomycosis B35.1 and Nail ingrowing L60.0 [place] [address] [place] [address] 61876- 1747 Jun, [place] [address] [address]- 0764 Jun, Lumbar back pain with radiculopathy affecting left lower extremity M54.17 [facility] [address] [place] [address] 21132- 2022 Jun, [facility] [id number] [place] [address] 54325- 7790 Jun, Other chronic pain G89.29 [facility] [id number] [place] [address] 21602- 9549 Jun, Other chronic pain G89.29 [facility] [id number] [place] [address] 34251- 7138 Jun, Type 2 diabetes mellitus without complications E11.9 [place] [id number] [place] [address] 91234- 3709 Jun, [facility] [id number] [place] [address] 47467- 9323 Jun, Onychomycosis B35.1 ; Callus L84 and Rash R21 [place] [id number] [place] [address] 03024- 6304 May, [facility] [address] [place] [address] 17253- 4420 May, [facility] [address] [place] [address] 42464- 4509 May, Type 2 diabetes mellitus without complications E11.9 [facility] [address] [address]- 0010 May, [facility] [id number] [place] [address] 72223- 3715 Apr, [place] [address] [place] [address] 31333- 7124 Apr, Type 2 diabetes mellitus without complications E11.9 ; Acquired hypothyroidism E03.9 ; Callus of foot L84 and Upper respiratory tract infection, unspecified type J06.9 [facility] [address] [address]- 5313 March, [facility] [address] [place] [address] 11800- 0081 Feb, [facility] [address] [address]- 6192 Jan, Diabetes mellitus without mention of complication, type II or unspecified type, not stated as uncontrolled 250.00 [facility] [address] [address]- 8527 28 Jan, 2016 [facility] [id number] [place] [address] 99953- 1198 16 Jan, 2016 Diabetes E11.9 and Hypothyroidism E03.9 [facility] [id number] [place] [address] 32377- 3943 Dec, Diarrhea R19.7 [facility] [address] [address]- 7431 Dec, [facility] [id number] [place] [address] 64527- 2765 Dec, Hypothyroidism, unspecified E03.9 [facility] [address] [address]- 6334 Dec, [facility] [address] [address]- 9567 Dec, Hypothyroidism, unspecified E03.9 [facility] [address] [address]- 9368 04 Dec, 2015 Diarrhea R19.7 [facility] [address] [address]- 0454 Dec, Diarrhea R19.7 [facility] [address] [address]- 7416 Nov, [facility] [address] [address]- 3653 Nov, [facility] [address] [address]- 9886 Oct, [facility] [address]- 3984 Sep, Postnasal drip R09.82 [facility] [id number] [place] [address] 65589- 5076 Sep, [facility] [address] [place] [address] 70751- 8452 Sep, [facility] [id number] [place] [address] 89916- 8897 Aug, [facility] [address] [place] [address] 62982- 0018 Aug, [facility] [id number] [place] [address] 57723- 4059 Jul, Hypothyroidism 244.9 [facility] [address] [place] [address] 19380- 5613 Jul, Diabetes mellitus without mention of complication, type II or unspecified type, not stated as uncontrolled 250.00 [facility] [address] [address]- 1341 Jul, [facility] [address] [address]- 7399 Jul, [facility] [address] [address]- 7621 Jun, [facility] [id number] [place] [address] 33110- 4020 May, Other chronic pain 338.29 [facility] [address] [address]- 6521 May, Other chronic pain 338.29 [facility] [address] [address]- 1552 May, [facility] [address] [address]- 1091 May, [facility] [id number] [address]- 7297 Apr, Rash 782.1 ; Hypercholesterolemia 272.0 and Hypothyroidism 244.9 [facility] [id number] [place] [address] 99083- 6844 Apr, [facility] [address] [place] [address], [place] [address]- 4605 Apr, [facility] [id number] [place] [address] 13006- 2753 March, [facility] [address] [address]- 3234 Feb, [facility] [address] [address]- 2028 Feb, [facility] [address] [address]- 8742 Jan, [facility] [address] [address]- 7673 Jan, [facility] [address] [address]- 3061 Jan, [facility] [address] [address]- 4886 Jan, [facility] [id number] [address]- 0144 Jan, [facility] [address] [address]- 0987 Jan, [facility] [place] [facility] [address] [address]- 3839 Jan, [facility] [id number] [place] [address]- 2941 16 Dec, 2014 [facility] [place] [facility] [address] [id number] [place] 1631 Dec, [facility] [place] [facility] [address] [id number] [place] [address]- 8298 Nov, [facility] [place] [facility] [address] [id number] [place] [address]- 6633 Nov, [facility] [place] [facility] [address] [id number] [place] [address]- 8293 Nov, [facility] [place] [facility] [address] [id number] [place] [address]- 9877 Nov, [facility] [place] [facility] [address] [id number] [place] [address]- 6114 Nov, [facility] [place] [facility] [address] [id number] [place] [address]- 0957 Nov, [facility] [place] [facility] [address] [id number] [place] [address]- 0520 Oct, [facility] [place] [facility] [address] [id number] [place] [address]- 7661 Oct, [facility] [place] [facility] [address] [id number] [place] [address]- 7263 Sep, [facility] [place] [facility] [address] [id number] [place] [address]- 1584 Sep, [facility] [place] [facility] [address] [id number] [place] [address]- 2387 Sep, [facility] [place] [facility] [address] [id number] [place] 0304 Sep, [facility] [place] [facility] [address] [id number] [place] [address]- 6057 Aug, [facility] [place] [facility] [address] [id number] [place] [address]- 2458 Aug, [facility] [place] [facility] [address] [id number] [place] [address]- 8811 Jul, [facility] [place] [facility] [address] [id number] [place] [address]- 8188 Jul, [facility] [place] [facility] [address] [id number] [place] [address]- 8267 Jun, [facility] [place] [facility] [address] [id number] [place] [address]- 6428 Jun, [facility] [place] [facility] [address] [id number] [place] [address]- 2709 Jun, [facility] [place] [facility] [address] [id number] [place] [address]- 1121 Jun, [facility] [place] [facility] [address] [id number] [place] [address]- 6111 May, [facility] [place] [facility] [address] [id number] [place] [address]- 0064 May, [facility] [place] [facility] [address] [id number] [place] [address]- 7139 May, [facility] [place] [facility] [address] [id number] [place] [address]- 6334 May, [facility] [place] [facility] [address] [id number] [place] [address]- 9648 Apr, [facility] [place] [facility] [address] [id number] [place] [address]- 3447 Apr, [facility] [place] [facility] [address] [id number] [place] [address]- 0066 March, [facility] [place] [facility] [address] [id number] [place] [address]- 3567 March, [facility] [place] [facility] [address] [id number] [place] [address]- 7811 March, [facility] [place] [facility] [address] [id number] [place] [address]- 4407 March, [facility] [place] [facility] [address] [id number] [place] [address]- 0242 March, [facility] [place] [facility] [address] [id number] [place] 7074 March, [facility] [place] [facility] [address] [id number] [place] [address]- 5686 Feb, [facility] [place] [facility] [address] [id number] [place] [address]- 9372 Feb, [facility] [place] [facility] [address] [id number] [place] [address]- 8653 Feb, [facility] [place] [facility] [address] [id number] [place] [address]- 0779 Feb, [facility] [place] [facility] [address] [id number] [place] [address]- 3700 Feb, [facility] [place] [facility] [address] [id number] [place] [address]- 2310 Feb, [facility] [place] [facility] [address] [id number] [place] [address]- 4777 Feb, [facility] [place] [facility] [address] [id number] [place] [address]- 0584 Feb, [facility] [place] [facility] [address] [id number] [place] [address]- 7775 Jan, [facility] [place] [facility] [address] [id number] [place] [address]- 5978 Jan, [facility] [place] [facility] [address] [id number] [place] [address]- 0998 Jan, [facility] [place] [facility] [address] [id number] [place] [address]- 5113 Jan, [facility] [place] [facility] [address] [id number] [place] [address]- 9278 Jan, [facility] [place] [facility] [address] [id number] [place] [address]- 9706 13 Jan, 2014 [facility] [place] [facility] [address] [id number] [place] [address]- 4676 Jan, [facility] [place] [facility] [address] [id number] [place] [address]- 4623 Jan, [facility] [place] [facility] [address] [id number] [place] [address]- 2170 Jan, [facility] [place] [facility] [address] [id number] [place] [address]- 8715 Dec, [facility] [place] [facility] [address] [id number] [place] [address]- 2198 Dec, [facility] [place] [facility] [address] [id number] [place] [address]- 5813 Nov, [facility] [place] [facility] [address] [id number] [place] [address]- 5393 Nov, [facility] [place] [facility] [address] [id number] [place] [address] Nov, [facility] [place] [facility] [address] [id number] [place] [address] Nov, [facility] [place] [facility] [address] [id number] [place] [address] Nov, [facility] [place] [facility] [address] [id number] [place] [address] Nov, [facility] [place] [facility] [address] [id number] [place] [address] Oct, [facility] [place] [facility] [address] [id number] [place] [address] Oct, [facility] [place] [facility] [address] [id number] [place] [address] Sep, [facility] [place] [facility] [address] [id number] [place] [address] Sep, [facility] [place] [facility] [address] [id number] [place] [address] Sep, [facility] [place] [facility] [address] [id number] [place] [address] Sep, [facility] [place] [facility] [address] [id number] [place] [address] Sep, [facility] [place] [facility] [address] [id number] [place] [address] Sep, [facility] [place] [facility] [address] [id number] [place] [address] Sep, [facility] [place] [facility] [address] [id number] [place] [address] Sep, [facility] [place] [facility] [address] [id number] [place] [address] Aug, [facility] [place] [facility] [address] [id number] [place] [address] Aug, [facility] [place] [facility] [address] [id number] [place] [address] Aug, [facility] [place] [facility] [address] [id number] [address] Jul, [facility] [place] [facility] [address] [id number] [address] Jul, [facility] [place] [facility] [address] [id number] [address] Jul, [facility] [place] [facility] [address] [id number] [place] [address] Jun, [facility] [place] [facility] [address] [id number] [place] [address] Jun, [facility] [place] [facility] [address] [id number] [place] [address] Jun, [facility] [place] [facility] [address] [id number] [place] [address] Jun, [facility] [address] [id number] [place] [address] Jun, [facility] [address] [id number] [place] [address] Jun, [facility] [address] [id number] [place] [address] May, [facility] [address] [id number] [place] [address] May, [facility] [address] [id number] [place] [address] Apr, [facility] [address] [id number] [place] [address] Apr, [facility] [address] [id number] [place] [address] March, [facility] [address] [id number] [place] [place] [address] Feb, [facility] [address] [id number] [place] [address] Feb, [facility] [address] [id number] [place] [address] Feb, [facility] [address] [id number] [place] [address] Feb, [facility] [address] [id number] [place] [address] Jan, [facility] [place] [facility] [address] [id number] [place] [address] Jan, [facility] [place] [facility] [address] [id number] [place] [address] Jan, [facility] [address] [id number] [place] [address] Jan, [facility] [address] [id number] [place] [address] Jan, [facility] [place] [facility] [address] [id number] [place] [address] Dec, [facility] [place] [facility] [address] [id number] [place] [address] Nov, [facility] [place] [facility] [address] [id number] [place] [address] Nov, [facility] [place] [facility] [address] [id number] [place] [address] Oct, [facility] [place] [facility] [address] [id number] [place] [address] Oct, [facility] [address] [id number] [place] [address] Oct, [facility] [place] [facility] [address] [id number] [place] [address] Oct, [facility] [place] [facility] [address] [id number] [place] [address] Oct, [facility] [place] [facility] [address] [id number] [place] [address]- [address] Oct, [facility] [place] [facility] [address] [id number] [place] [address]- [address] Oct, [facility] [place] [facility] [address] [id number] [place] [address] Oct, [facility] [place] [facility] [address] [id number] [place] [address]697 Aug, [facility] [place] [facility] [address] [id number] [place] [address] Aug, [facility] [place] [facility] [address] [id number] [place] [address] Aug, [facility] [place] [facility] [address] [id number] [place] [address] 9337 Aug, [facility] [place] [facility] [address] [id number] [place] [address] Aug, [facility] [place] [facility] [address] [id number] [place] [address] 19 Aug, 2012 [facility] [place] [facility] [address] [id number] [place] [address] 15 Aug, 2012 [facility] [place] [facility] [address] [id number] [place] [address] 27 Jul, 2012 [facility] [place] [facility] [address] [id number] [place] [address]796 27 Jul, 2012 [facility] [place] [facility] [address] [id number] [place] [address]- [address] 27 Jul, 2012 [facility] [place] [facility] [address] [id number] [place] [address] 1396 27 Jul, 2012 [facility] [place] [facility] [address] [id number] [place] [address] 03 Jul, 2012 [facility] [place] [facility] [address] [id number] [place] [address] Jun, [facility] [place] [facility] [address] [id number] [place] [address] 280[address] Jun, [facility] [place] [facility] [address] [id number] [place] [address] 305[address] Jun, [facility] [place] [facility] [address] [id number] [place] [address] May, [facility] [place] [facility] [address] [id number] [place] [address] May, [facility] [place] [facility] [address] [id number] [place] [address]- 24[address] May, [facility] [place] [facility] [address] [id number] [place] [address] May, [facility] [place] [facility] [address] [id number] [place] [address] 23 May, 2012 [facility] [address] [id number] [place] [address] 17 May, 2012 [facility] [place] [facility] [address] [id number] [place] [address] May, [facility] [address] [id number] [place] [address] Apr, [facility] [place] [facility] [address] [id number] [place] [address]- 82[address] Apr, [facility] [address] [id number] [place] [address] March, [facility] [address] [id number] [place] [address] Feb, [facility] [address] [id number] [place] [address]68 30 Jan, 2012 [facility] [address] [id number] [place] [address]27 Jan, [facility] [place] [facility] [address] [id number] [place] [address]7 Jan, [facility] [address] [id number] [place] [address] 77[address] Jan, [facility] [place] [facility] [address] [id number] [place] [address] 2546 Jan, [facility] [place] [facility] [address] [id number] [place] [address] 2546 Jan, [facility] [place] [facility] [address] [id number] [place] [address] Jan, [facility] [place] [facility] [address] [id number] [place] [address]- 8066 Jan, [facility] [place] [facility] [address] [id number] [place] [address]- 1231 Jan, [facility] [address] [id number] [place] [address]- 8324 Jan, [facility] [place] [facility] [address] [id number] [place] [address]- 2316 Dec, [facility] [place] [facility] [address] [id number] [place] [address]- 2575 Dec, [facility] [place] [facility] [address] [id number] [place] [address]- 2082 Dec, [facility] [place] [facility] [address] [id number] [place] [address]- 1575 Dec, [facility] [place] [facility] [address] [id number] [place] [address]- 8313 Dec, [facility] [place] [facility] [address] [id number] [place] [address]- 7324 Dec, [facility] [place] [facility] [address] [id number] [place] [address]- 1787 Dec, [facility] [place] [facility] [address] [id number] [place] [address] Dec, [facility] [place] [facility] [address] [id number] [place] [address]- 6942 Nov, [facility] [place] [facility] [address] [id number] [place] [address]- 2688 Nov, [facility] [place] [facility] [address] [id number] [place] [address] 3043 Nov, [facility] [place] [facility] [address] [id number] [place] [address] Oct, [facility] [place] [facility] [address] [id number] [place] [address] Oct, [facility] [place] [facility] [address] [id number] [place] [address]- 5189 Oct, [facility] [place] [facility] [address] [facility] [id number] [place] [address] Oct, [facility] [address] [facility] [id number] [place] [address]- [address] Sep, IMMUNIZATIONS No Known Immunizations SOCIAL HISTORY Never Assessed REASON FOR VISIT Lab results PLAN OF CARE VITAL SIGNS MEDICATIONS Medication Instructions Dosage Frequency Start Date End Date Duration Status Levothyroxine Sodium 175 MCG Orally Once a day 1 tablet on an empty stomach in the morning 24h Active RESULTS No Results PROCEDURES No Known [...]
--- OUTSIDE RECORDS SUMMARY | 2019-01-07 23:51 | XMS REPORT ---
Author Author NALINI GOMEZ Organization [facility] Address [address] [place] [address] Care Team Providers Care Deputy Prosecuting Attorney Name Role Phone NALINI GOMEZ Unavailable PROBLEMS Type Condition ICD9-CM Code HYT97-UR Code Onset Dates Condition Status SNOMED Code Problem Hypothyroidism, unspecified E03.9 Active 35305369 Problem Hypothyroidism (acquired) E03.9 Active 62555019 Problem Acquired hypothyroidism E03.9 Active 288980627 Problem Other chronic pain G89.29 Active 90831872 Problem Hypertension, benign I10 Active 02313277 Problem Episode of recurrent major depressive disorder, unspecified depression episode severity F33.9 Active 062788240 Problem Mixed hyperlipidemia E78.2 Active 326698047 Problem Stress incontinence of urine N39.3 Active 95271009 Problem Urinary, incontinence, stress female N39.3 Active 03711792 Problem Hypercholesterolemia 272.0 Active 59254906 Problem Type 2 diabetes mellitus without complications E11.9 Active 113238187 Problem Other chronic pain G89.29 Active 90980020 Problem Panlobular emphysema J43.1 Active 3017440 Problem Controlled type 2 diabetes mellitus without complication, without long -term current use of insulin E11.9 Active 188360817 ALLERGIES Substance Reaction Event Type Date Status Rocephin Unknown Drug Allergy May, Active Penicillin V Potassium Unknown Drug Allergy May, Active Nsaids (non-steroidal Anti-inflammatory Drug) renal insuffiency Non Drug Allergy May, Active ENCOUNTERS Encounter Location Date Diagnosis [facility] [address] [facility] [id number] [address] Jun, [facility] [address] [id number] [address] Jun, Other chronic pain G89.29 [facility] [address] [facility] [id number] [place] [address] 2[address] Jun, Other chronic pain G89.29 [facility] [id number] [place] [address] 60569- 6392 Jun, Stress incontinence of urine N39.3 ; Controlled type 2 diabetes mellitus without complication, without long-term current use of insulin E11.9 and Hypertension, benign I10 [place] [address] [address]- [address]37 Jun, [place] [address] [address]116- 6835 Jun, [place] [address] 16989- 8649 May, [place] [address] 02039- 3278 May, Viral gastroenteritis A08.4 [place] [address] 66854- 0427 May, Acute diffuse otitis externa of left ear H60.312 and Acquired hypothyroidism E03.9 [place] [address] 29696- 4024 May, Episode of recurrent major depressive disorder, unspecified depression episode severity F33.9 ; Urinary, incontinence, stress female N39.3 ; Mixed hyperlipidemia E78.2 and Hypothyroidism (acquired) E03.9 [place] [id number] [place] [address] 89175- 2782 May, [place] [address] 67127- 8710 May, Viral gastroenteritis A08.4 [facility] [id number] [place] [address] 60849- 2423 Apr, Acute diffuse otitis externa of left ear H60.312 and Hypothyroidism (acquired) E03.9 [facility] [place] [id number] [place] [address] 23788- 9767 Apr, Viral gastroenteritis A08.4 and Acquired hypothyroidism E03.9 [place] [id number] [place] [address] 78694- 9079 Apr, Type 2 diabetes mellitus without complications E11.9 and Panlobular emphysema J43.1 [facility] [id number] [place] [address] 02528- 3372 Apr, Viral gastroenteritis A08.4 [facility] [id number] [place] [address] 37961- 9731 March, [facility] [id number] [place] [address] 92039- 0156 March, Viral gastroenteritis A08.4 [facility] [id number] [place] [address] 51037- 4106 Feb, Panlobular emphysema J43.1 [facility] [place] [id number] [place] [address] 83496- 9979 Feb, Panlobular emphysema J43.1 [facility] [place] [id number] [place] [address] 20362- 6580 Feb, [facility] [place] [id number] [place] [address] 10817- 4084 Feb, [place] [id number] [place] [address] 60611- 8498 Feb, Viral gastroenteritis A08.4 [facility] [id number] [place] [address] 30226- 3082 Feb, Head lice B85.0 [place] [id number] [place] [address] 16849- 4388 Feb, Medicare annual wellness visit, initial Z00.00 ; Head lice B85.0 ; Tinea corporis B35.4 and Enlarged lymph node R59.9 [place] [id number] [place] [address] 30166- 1593 Jan, Viral gastroenteritis A08.4 [facility] [id number] [place] [address] 26921- 3911 Jan, [place] [id number] [place] [address] 05330- 9277 Dec, Controlled type 2 diabetes mellitus without complication, without long-term current use of insulin E11.9 [facility] [place] [id number] [place] [address] 97156- 5465 Dec, [place] [id number] [place] [address] 15744- 8141 Dec, Viral gastroenteritis A08.4 [facility] [place] [id number] [place] [address] 80184- 7776 Nov, Viral gastroenteritis A08.4 [facility] [place] [id number] [place] [address] 51968- 5296 Oct, Acute upper respiratory infection, unspecified J06.9 and Other viral agents as the cause of diseases classified elsewhere B97.89 [facility] [place] [id number] [place] [address] 63107- 3288 Oct, Viral gastroenteritis A08.4 [facility] [place] [id number] [place] [address] 60508- 5633 Oct, Controlled type 2 diabetes mellitus without complication, without long-term current use of insulin E11.9 ; Encounter for immunization Z23 and Acute pain of left foot M79.672 [facility] [place] [id number] [place] [address] 01453- 1314 Sep, Viral gastroenteritis A08.4 [facility] [place] [id number] [place] [address] 37095- 8968 Aug, Viral gastroenteritis A08.4 [facility] [place] [id number] [place] [address] 19714- 0520 Jul, Viral gastroenteritis A08.4 [facility] [address] [place] [address] 58213 -3547 Jul, Acute nasopharyngitis (common cold) J00 [place] [address] [place] [address] 05370- 8287 Jun, Viral gastroenteritis A08.4 [place] [id number] [place] [address] 81657- 1733 Jun, [place] [id number] [place] [address] 99957- 1170 Jun, Viral gastroenteritis A08.4 [place] [id number] [place] [address] 92002- 0441 May, Patellar tendinitis, left knee M76.52 [place] [address] 59744- 7906 May, Viral gastroenteritis A08.4 [place] [id number] [place] [address] 35703- 4332 16 Apr, 2017 Viral gastroenteritis A08.4 and Hypothyroidism, unspecified E03.9 [place] [id number] [place] [address] 50890- 4010 15 Apr, 2017 Pain in left knee M25.562 ; Acute left-sided low back pain without sciatica M54.5 and Type 2 diabetes mellitus without complications E11.9 [place] [id number] [place] [address] 83142- 3084 07 Apr, 2017 Viral gastroenteritis A08.4 [place] [id number] [place] [address] 89612- 1757 March, Viral gastroenteritis A08.4 [facility] [address] [place] [address] 29378 -8940 Feb, Acute pain of left knee M25.562 [place] [id number] [place] [address] 55547- 8930 Feb, Viral gastroenteritis A08.4 [place] [id number] [place] [address] 66998- 2138 16 Mar, 2017 Viral gastroenteritis A08.4 and Controlled type 2 diabetes mellitus without complication, without long-term current use of insulin E11.9 [place] [id number] [place] [address] 04417- 1143 14 Jan, 2017 [place] [id number] [place] [address] 78365- 1637 16 Dec, 2016 Other chronic pain G89.29 ; Pain in left knee M25.562 ; Controlled type 2 diabetes mellitus without complication, without long-term current use of insulin E11.9 and Acute cystitis with hematuria N30.01 [place] [id number] [place] [address] 89382- 4309 Dec, [place] [id number] [place] [address] 45651- 4232 06 Nov, 2016 Type 2 diabetes mellitus without complications E11.9 [place] [id number] [place] [address] 95707- 9393 Nov, [place] [id number] [place] [address] 34373- 1786 Oct, [place] [id number] [place] [address] 42978- 5892 Sep, [place] [id number] [place] [address] 82871- 4699 Aug, [place] [id number] [place] [address] 34163- 7931 Aug, [place] [id number] [place] [address] 21865- 5898 Jul, Controlled type 2 diabetes mellitus without complication, without long-term current use of insulin E11.9 ; Callus of foot L84 and URI, acute J06.9 [place] [id number] [place] [address] 37976- 9861 13 Jul, 2016 [place] [id number] [place] [address] 17092- 8694 Jun, Onychomycosis B35.1 and Nail ingrowing L60.0 [facility] [address] [place] [address] 95542- 8453 Jun, [facility] [id number] [place] [address] 56220- 6961 Jun, Lumbar back pain with radiculopathy affecting left lower extremity M54.17 [facility] [id number] [place] [address] 88840- 7531 Jun, [facility] [id number] [place] [address] 34778- 9862 Jun, Other chronic pain G89.29 [facility] [id number] [place] [address] 75178- 4648 Jun, Other chronic pain G89.29 [facility] [id number] [place] [address] 10708- 0788 Jun, Type 2 diabetes mellitus without complications E11.9 [facility] [id number] [place] [address] 51215- 4601 Jun, [facility] [id number] [place] [address] 22107- 4505 Jun, Onychomycosis B35.1 ; Callus L84 and Rash R21 [facility] [id number] [place] [address] 75216- 1695 May, [facility] [id number] [place] [address] 36681 2540 May, [facility] [address] [place] [address] 20886- 8035 May, Type 2 diabetes mellitus without complications E11.9 [facility] [id number] [place] [address] 63400- 254 May, [facility] [id number] [place] [address] 08042- 1678 Apr, [facility] [address] [address]- 5733 Apr, Type 2 diabetes mellitus without complications E11.9 ; Acquired hypothyroidism E03.9 ; Callus of foot L84 and Upper respiratory tract infection, unspecified type J06.9 [facility] [address] [place] [address]- 9829 March, [facility] [address] 55502- 3000 Feb, [facility] [id number] [place] [address] 73214- 5960 Jan, Diabetes mellitus without mention of complication, type II or unspecified type, not stated as uncontrolled 250.00 [facility] [id number] [place] [address] 97519- 5841 Jan, [place] [id number] [place] [address] 93491- 3304 Jan, Diabetes E11.9 and Hypothyroidism E03.9 [facility] [id number] [place] [address] 61889- 4042 Dec, Diarrhea R19.7 [facility] [id number] [place] [address] 51209- 3955 Dec, [facility] [address] [place] [address] 36920- 9978 Dec, Hypothyroidism, unspecified E03.9 [facility] [id number] [place] [address] 18315- 8861 Dec, [facility] [id number] [place] [address] 29153- 9947 Dec, Hypothyroidism, unspecified E03.9 [facility] [id number] [place] [address] 52091- 4401 Dec, Diarrhea R19.7 [facility] [id number] [place] [address] 09952- 2710 Dec, Diarrhea R19.7 [facility] [address] [place] [address] 64732- 2713 Nov, [facility] [id number] [place] [address] 043181- 7420 Nov, [facility] [id number] [place] [address] 46339- 6553 Oct, [facility] [id number] [place] [address] 61016- 7050 Sep, Postnasal drip R09.82 [facility] [id number] [place] [address] 071397- 7328 Sep, [facility] [id number] [place] [address] 21083- 0030 Sep, [facility] [id number] [place] [address] 17285- 1334 Aug, [facility] [address] [place] [address] 31092- 9810 Aug, [facility] [id number] [place] [address] 61749- 1372 Jul, Hypothyroidism 244.9 [facility] [address] [place] [address] 91527- 5399 Jul, Diabetes mellitus without mention of complication, type II or unspecified type, not stated as uncontrolled 250.00 [facility] [address] [address]- 9704 Jul, [facility] [address] [place] [address] 55732- 6174 Jul, [facility] [address] [place] [address] 02240- 2445 Jun, [facility] [address] [place] [address] 62577- 2992 May, Other chronic pain 338.29 [facility] [id number] [address]- 7854 10 May, 2015 Other chronic pain 338.29 [facility] [address] [address]- 9946 09 May, 2015 [facility] [address] [address]- 2477 May, [facility] [id number] [place] [address] 64127- 7249 Apr, Rash 782.1 ; Hypercholesterolemia 272.0 and Hypothyroidism 244.9 [facility] [id number] [place] [address] 56519- 6475 Apr, [facility] [id number] [place] [address] 10641- 2591 Apr, [facility] [id number] [place] [address] 93605- 9343 March, [facility] [address] [address]- 5007 Feb, [facility] [id number] [place] [address] 98444- 1881 Feb, [facility] [address] [address]- 6968 26 Jan, 2015 [facility] [address] [address]- 9800 Jan, [facility] [address] [address]- 7330 Jan, [facility] [address] [address]- 0042 Jan, [facility] [address] [address]- 1456 Jan, [facility] [address] [address]- 4907 Jan, [facility] [place] [facility] [address] [id number] [place] [address]- 4348 Jan, [facility] [place] [facility] [address] [id number] [place] [address]- 1593 Dec, [facility] [place] [facility] [address] [id number] [place] [address]- 4741 Dec, [facility] [place] [facility] [address] [id number] [place] [address]- 0587 Nov, [facility] [place] [facility] [address] [id number] [place] [address]- 2789 Nov, [facility] [place] [facility] [address] [id number] [place] [address]- 1184 Nov, [facility] [place] [facility] [address] [id number] [place] [address]- 3230 Nov, [facility] [place] [facility] [address] [id number] [place] [address]- 8031 Nov, [facility] [place] [facility] [address] [id number] [place] [address]- 4714 Nov, [facility] [place] [facility] [address] [id number] [place] [address]- 8405 Oct, [facility] [place] [facility] [address] [id number] [address]- 1999 Oct, [facility] [place] [facility] [address] [id number] [place] [address]- 5187 Sep, [facility] [place] [facility] [address] [id number] [place] [address]- 4002 Sep, [facility] [place] [facility] [address] [id number] [address]- 4683 Sep, [facility] [place] [facility] [address] [id number] [place] [address]- 1836 Sep, [facility] [place] [facility] [address] [id number] [place] [address]- 7860 Aug, [facility] [place] [facility] [address] [id number] [place] [address]- 2282 Aug, [facility] [place] [facility] [address] [id number] [place] [address]- 0100 Jul, [facility] [place] [facility] [address] [id number] [place] [address]- 8347 Jul, [facility] [place] [facility] [address] [id number] [place] [address]- 7523 Jun, [facility] [place] [facility] [address] [id number] [place] [address]- 9793 Jun, [facility] [place] [facility] [address] [id number] [place] [address]- 1900 Jun, [facility] [place] [facility] [address] [id number] [place] [address]- 9190 Jun, [facility] [place] [facility] [address] [id number] [place] [address]- 7224 May, [facility] [place] [facility] [address] [id number] [place] [address]- 3987 May, [facility] [place] [facility] [address] [id number] [place] [address]- 1044 May, [facility] [place] [facility] [address] [id number] [place] [address]- 7726 May, [facility] [place] [facility] [address] [id number] [place] [address]- 7047 Apr, [facility] [place] [facility] [address] [id number] [place] [address]- 3234 Apr, [facility] [place] [facility] [address] [id number] [place] [address]- 1082 March, [facility] [place] [facility] [address] [id number] [place] 3054 March, [facility] [place] [facility] [address] [id number] [place] [address]- 4392 March, [facility] [place] [facility] [address] [id number] [place] [address]- 9774 March, [facility] [place] [facility] [address] [id number] [place] [address]- 4406 March, [facility] [place] [facility] [address] [id number] [place] [address]- 1887 March, [facility] [place] [facility] [address] [id number] [place] [address]- 5240 Feb, [facility] [place] [facility] [address] [id number] [place] [address]- 7442 Feb, [facility] [place] [facility] [address] [id number] [place] [address]- 0222 Feb, [facility] [place] [facility] [address] [id number] [place] [address]- 1343 Feb, [facility] [place] [facility] [address] [id number] [place] [address]- 3458 Feb, [facility] [place] [facility] [address] [id number] [place] [address]- 7571 Feb, [facility] [place] [facility] [address] [id number] [place] [address]- 0245 Feb, [facility] [place] [facility] [address] [id number] [place] [address]- 0549 Feb, [facility] [place] [facility] [address] [id number] [place] [address]- 1138 Jan, [facility] [place] [facility] [address] [id number] [place] [address]- 7035 Jan, [facility] [place] [facility] [address] [id number] [place] [address]- 0189 Jan, [facility] [place] [facility] [address] [id number] [place] [address]- 7797 Jan, [facility] [place] [facility] [address] [id number] [place] [address]- 7089 Jan, [facility] [place] [facility] [address] [id number] [place] [address]- 8579 Jan, [facility] [place] [facility] [address] [id number] [place] [address] Jan, [facility] [place] [facility] [address] [id number] [place] [address] Jan, [facility] [place] [facility] [address] [id number] [place] [address] Jan, [facility] [place] [facility] [address] [id number] [place] [address] Dec, [facility] [place] [facility] [address] [id number] [place] [address] Dec, [facility] [place] [facility] [address] [id number] [place] [address] Nov, [facility] [place] [facility] [address] [id number] [place] [address] Nov, [facility] [place] [facility] [address] [id number] [place] [address] Nov, [facility] [place] [facility] [address] [id number] [place] [address] Nov, [facility] [place] [facility] [address] [id number] [place] [address] Nov, [facility] [place] [facility] [address] [id number] [place] [address] Nov, [facility] [place] [facility] [address] [id number] [place] [address] Oct, [facility] [place] [facility] [address] [id number] [place] [address] Oct, [facility] [place] [facility] [address] [id number] [place] [address] Sep, [facility] [address] [id number] [place] [address] Sep, [facility] [place] [facility] [address] [id number] [place] [address] Sep, [facility] [address] [id number] [place] [address] Sep, [facility] [place] [facility] [address] [id number] [place] [address] Sep, [facility] [address] [id number] [place] [address] Sep, [facility] [place] [facility] [address] [id number] [place] [address] Sep, [facility] [place] [facility] [address] [id number] [place] [address] Sep, [facility] [address] [id number] [place] [address] Aug, [facility] [place] [facility] [address] [id number] [place] [address] Aug, [facility] [address] [id number] [place] [address] Aug, [facility] [place] [facility] [address] [id number] [place] [address] Jul, [facility] [place] [facility] [address] [id number] [place] [address] Jul, [facility] [place] [facility] [address] [id number] [place] [address] Jul, [facility] [place] [facility] [address] [id number] [place] [address] Jun, [facility] [place] [facility] [address] [id number] [place] [address] Jun, [facility] [address] [id number] [place] [address] Jun, [facility] [place] [facility] [address] [id number] [place] [address] Jun, [facility] [place] [facility] [address] [id number] [place] [address] Jun, [facility] [place] [facility] [address] [id number] [place] [address] Jun, [facility] [place] [facility] [address] [id number] [place] [address] May, [facility] [place] [facility] [address] [id number] [place] [address] May, [facility] [place] [facility] [address] [id number] [place] [address] Apr, [facility] [place] [facility] [address] [id number] [place] [address] Apr, [facility] [place] [facility] [address] [id number] [place] [address] March, [facility] [place] [facility] [address] [id number] [place] [address] Feb, [facility] [place] [facility] [address] [id number] [place] [address] Feb, [facility] [place] [facility] [address] [id number] [place] [address] Feb, [facility] [place] [facility] [address] [id number] [place] [address] Feb, [facility] [place] [facility] [address] [id number] [place] [address] Jan, [facility] [place] [facility] [address] [id number] [place] [id number] [address] Jan, [facility] [place] [facility] [address] [id number] [place] [address] Jan, [facility] [address] [id number] [place] [address] Jan, [facility] [place] [facility] [address] [id number] [place] [address] Jan, [facility] [place] [facility] [address] [id number] [place] [address] Dec, [facility] [place] [facility] [address] [id number] [place] [address] Nov, [facility] [place] [facility] [address] [id number] [place] [address] Nov, [facility] [place] [facility] [address] [id number] [place] [address] Oct, [facility] [address] [id number] [place] [address] Oct, [facility] [place] [facility] [address] [id number] [place] [address] Oct, [facility] [place] [facility] [address] [id number] [place] [address] Oct, [facility] [place] [facility] [address] [id number] [place] [address] Oct, [facility] [place] [facility] [address] [id number] [place] [address] Oct, [facility] [place] [facility] [address] [id number] [place] [address] Oct, [facility] [place] [facility] [address] [id number] [place] [address] Oct, [facility] [place] [facility] [address] [id number] [place] [address] Aug, [facility] [place] [facility] [address] [id number] [place] [address] Aug, [facility] [place] [facility] [address] [id number] [place] [address] Aug, [facility] [place] [facility] [address] [id number] [place] [address] Aug, [facility] [place] [facility] [address] [id number] [place] [address] Aug, [facility] [place] [facility] [address] [id number] [place] [address] 19 Aug, 2012 [facility] [place] [facility] [address] [id number] [place] [address] 15 Aug, 2012 [facility] [place] [facility] [address] [id number] [place] [address] 27 Jul, 2012 [facility] [place] [facility] [address] [id number] [place] [address] 27 Jul, 2012 [facility] [place] [facility] [address] [id number] [place] [address] 27 Jul, 2012 [facility] [place] [facility] [address] [id number] [place] [address] 6937 27 Jul, 2012 [facility] [place] [facility] [address] [id number] [place] [address] 03 Jul, 2012 [facility] [place] [facility] [address] [id number] [place] [address] Jun, [facility] [place] [facility] [address] [id number] [place] [address] Jun, [facility] [place] [facility] [address] [id number] [place] [address] Jun, [facility] [place] [facility] [address] [id number] [place] [address] May, [facility] [place] [facility] [address] [id number] [place] [address] May, [facility] [place] [facility] [address] [id number] [place] [address] May, [facility] [place] [facility] [address] [id number] [place] [address] May, [facility] [place] [facility] [address] [id number] [place] [address] 4[address] May, [facility] [place] [facility] [address] [id number] [place] [address] 77[address] May, [facility] [place] [facility] [address] [id number] [place] [address] May, [facility] [place] [facility] [address] [id number] [place] [address] Apr, [facility] [place] [facility] [address] [id number] [place] [address] Apr, [facility] [place] [facility] [address] [id number] [place] [address] March, [facility] [place] [facility] [address] [id number] [place] [address] 45[address] Feb, [facility] [place] [facility] [address] [id number] [place] [address] 89[address] Jan, [facility] [place] [facility] [address] [id number] [place] [address] 9003 Jan, [facility] [place] [facility] [address] [id number] [place] [address]237 Jan, [facility] [place] [facility] [address] [id number] [place] [address] 8969 Jan, [facility] [place] [facility] [address] [id number] [place] [address] Jan, [facility] [place] [facility] [address] [id number] [place] [address] 9608 Jan, [facility] [place] [facility] [address] [id number] [place] [address] 33[address] Jan, [facility] [place] [facility] [address] [id number] [place] [address] 0[address] Jan, [facility] [place] [facility] [address] [id number] [place] [address] 8[address] Jan, [facility] [place] [facility] [address] [id number] [place] [address] 48[address] Jan, [facility] [place] [facility] [address] [id number] [place] [address]576 Dec, [facility] [place] [facility] [address] [id number] [place] [address] 3567 Dec, [facility] [place] [facility] [address] [id number] [place] [address]113 Dec, [facility] [place] [facility] [address] [id number] [place] [address] 2446 Dec, [facility] [place] [facility] [address] [id number] [place] [address]43 Dec, [facility] [place] [facility] [address] [id number] [place] [address] 4935 Dec, [facility] [place] [facility] [address] [id number] [place] [address] 4579 Dec, [facility] [place] [facility] [address] [id number] [place] [address] Dec, [facility] [place] [facility] [address] [id number] [place] [address] Nov, [facility] [place] [facility] [address] [id number] [place] [address] 59[address] Nov, [facility] [place] [facility] [address] [id number] [place] [address] 1566 Nov, [facility] [place] [facility] [address] [id number] [place] [address] 68[address] Oct, [facility] [place] [facility] [address] [id number] [place] [address] Oct, [facility] [address] [facility] [id number] [place] [address] Oct, [facility] [address] [facility] [id number] [place] [address] Oct, [facility] [address] [facility] [id number] [place] [address] Sep, IMMUNIZATIONS No Known Immunizations SOCIAL HISTORY Never Assessed REASON FOR VISIT Diabetes, reports Arvind told her he wanted to check her blood for something. , Wants to discuss 2 problems she is having, one she know what it is and the other she doesn't know. CBrumbackRN PLAN OF CARE Activity Details Follow Up 4 Weeks Reason:urinary incontinence VITAL SIGNS Height 64 in 2018-06-09 Weight 215.2 lbs 2018-06-09 Temperature 98.1 degrees Fahrenheit 2018-06-09 Heart Rate 80 bpm 2018-06-09 Respiratory Rate 20 2018-06-09 BMI 36.93 kg/m2 2018-06-09 Blood pressure systolic 122 mmHg 2018-06-09 Blood pressure diastolic 70 mmHg 2018-06-09 MEDICATIONS Medication Instructions Dosage Frequency Start Date End Date Duration Status Blood Glucose Test - In Vitro 2 times a day, one touch ultra test blood sugar Active Ropinirole HCl 4 MG TAKE ONE TABLET BY MOUTH ONCE DAILY 90 Active Ventolin HFA 108 (90 Base) MCG/ACT Inhalation every 6 hrs 2 puffs as needed 6h 30 Feb, 2018 Active Citalopram Hydrobromide 10 MG TAKE ONE TABLET BY MOUTH ONCE DAILY 90 Active Terbinafine HCl 1 % Externally Twice a day 1 application to affected area 12h Feb, Active Xsfbmosn-Tbtgyatue-TG 1 % Otic Three times a day 4 drops into affected ear 8h Apr, Active Atorvastatin Calcium 40 mg Orally Once a day 1 tablet 24h 18 Feb, 2018 30 day(s) Active Fish Oil 1000 MG Orally Twice a day 2 capsules 12h 11 Apr, 2018 Not- Taking Triamcinolone Acetonide 0.1 % Externally Twice a day 1 application to affected area 12h Apr, Active Gabapentin 100 MG TAKE ONE CAPSULE BY MOUTH ONCE DAILY 90 Active Montelukast Sodium 10 MG 1 tablet 24h 30 Active Metformin HCl 500 mg 2 tablets 12h Active Imipramine HCl 25 MG Orally Once a day 1 tablet at bedtime 24h May, 30 day(s) Active Levothyroxine Sodium 150 MCG Orally Once a day 1 tablet on an empty stomach in the morning 24h Active Toviaz 8 MG TAKE ONE TABLET BY MOUTH ONCE DAILY 90 Active Zofran 4 MG Orally 3 times a day 1 tablet 8h 10 Active OneTouch Delica Lancets 33G 33 test blood sugar 12h Active Advair Diskus 500-50 MCG/DOSE 1 puff 12h Active Natroba 0.9 % Externally one time, may repeat if needed apply contents of bottle to cover scalp and hair Feb, Active Cetirizine HCl 10 MG TAKE ONE TABLET BY MOUTH ONCE DAILY 30 Active Blood Glucose Monitor System w/Device subcutaneously 2 times a day test blood sugar 12h Active Fish Oil 1000 MG Orally Twice a day 2 capsules 12h May, Nov, 30 day(s) Active [place] 10-325 MG Orally every 6 hrs 1 tablet as needed 6h May, 28 days Active Myrbetriq 50 MG TAKE ONE TABLET BY MOUTH ONCE DAILY Apr, 30 Active Ranitidine HCl 150 MG TAKE ONE TABLET BY MOUTH TWICE DAILY NEEDED 90 Active RESULTS Name Result Date Reference Range TSH 2018-06-09 TSH 7.97 0.40-4.50 PROCEDURES Procedure Date Ordered Result Body Site [facility] VISIT ESTABLISHED PATIENT June 09, 2018 LAB NOT BILLED BY [facility] June 09, 2018 INSTRUCTIONS MEDICATIONS ADMINISTERED No Known Medications [...] intraocular lens prosthesis Hospitalization History admitted to [facility] for bronchitis then went into cardiac arrest and was resuscitated. She was in the hospital for 7 days. 2012 Hospitalization History surgeries
--- OUTSIDE RECORDS SUMMARY | 2019-01-07 23:52 | XMS REPORT ---
Author Author NALINI GOMEZ Organization [facility] Address [address] [place] [address] Care Team Providers Care Patient Monitor Name Role Phone NALINI GOMEZ Unavailable PROBLEMS Type Condition ICD9-CM Code EFD23-IN Code Onset Dates Condition Status SNOMED Code Problem Hypothyroidism, unspecified E03.9 Active 14969156 Problem Hypothyroidism (acquired) E03.9 Active 25853150 Problem Acquired hypothyroidism E03.9 Active 782319937 Problem Other chronic pain G89.29 Active 93742154 Problem Hypertension, benign I10 Active 93693736 Problem Episode of recurrent major depressive disorder, unspecified depression episode severity F33.9 Active 383544461 Problem Mixed hyperlipidemia E78.2 Active 752018891 Problem Stress incontinence of urine N39.3 Active 11022212 Problem Urinary, incontinence, stress female N39.3 Active 96956423 Problem Hypercholesterolemia 272.0 Active 01611830 Problem Type 2 diabetes mellitus without complications E11.9 Active 440368333 Problem Other chronic pain G89.29 Active 43005741 Problem Panlobular emphysema J43.1 Active 0951179 Problem Controlled type 2 diabetes mellitus without complication, without long -term current use of insulin E11.9 Active 847775442 ALLERGIES No Information ENCOUNTERS Encounter Location Date Diagnosis [facility] [address], [place] [address] Jun, [facility] [address], [place] [address] 4258 Jun, Other chronic pain G89.29 [facility] [id number] [place] [address] 89324- 2006 Jun, Other chronic pain G89.29 [facility] [id number] [address] Jun, Stress incontinence of urine N39.3 ; Controlled type 2 diabetes mellitus without complication, without long-term current use of insulin E11.9 and Hypertension, benign I10 [place] [id number] [place] [address] 23163- 3421 Jun, [place] [address] [address]30- 7060 Jun, [facility] [address] 69020- 9000 May, [facility] [facility] [address] 90874- 3544 May, Viral gastroenteritis A08.4 [facility] [facility] [address] 26468- 8030 May, Acute diffuse otitis externa of left ear H60.312 and Acquired hypothyroidism E03.9 [facility] [address] 91938- 8899 May, Episode of recurrent major depressive disorder, unspecified depression episode severity F33.9 ; Urinary, incontinence, stress female N39.3 ; Mixed hyperlipidemia E78.2 and Hypothyroidism (acquired) E03.9 [facility] [id number] [place] [address] 62827- 7855 May, [facility] [facility] [address] 49746- 0606 May, Viral gastroenteritis A08.4 [facility] [address] 33935- 7438 Apr, Acute diffuse otitis externa of left ear H60.312 and Hypothyroidism (acquired) E03.9 [facility] [address] 41044- 8419 Apr, Viral gastroenteritis A08.4 and Acquired hypothyroidism E03.9 [facility] [id number] [place] [address] 81224- 2512 Apr, Type 2 diabetes mellitus without complications E11.9 and Panlobular emphysema J43.1 [facility] [id number] [place] [address] 83300- 6657 Apr, Viral gastroenteritis A08.4 [facility] [address] 47891- 7620 March, [facility] [address] 51141- 8358 March, Viral gastroenteritis A08.4 [facility] [address] 73222- 8442 Feb, Panlobular emphysema J43.1 [facility] [address] 69722- 5079 Feb, Panlobular emphysema J43.1 [facility] [address] 25947- 4194 Feb, [facility] [address] 37169- 6401 Feb, [facility] [id number] [place] [address] 47171- 9387 Feb, Viral gastroenteritis A08.4 [facility] [facility] [id number] [place] [address] 45857- 3435 Feb, Head lice B85.0 [facility] [id number] [place] [address] 46379- 3579 Feb, Medicare annual wellness visit, initial Z00.00 ; Head lice B85.0 ; Tinea corporis B35.4 and Enlarged lymph node R59.9 [facility] [id number] [place] [address] 05591- 1084 Jan, Viral gastroenteritis A08.4 [facility] [id number] [place] [address] 48488- 5564 Jan, [facility] [address] 37738- 9701 Dec, Controlled type 2 diabetes mellitus without complication, without long-term current use of insulin E11.9 [facility] [address] 23088- 3768 Dec, [facility] [address] 60937- 0706 Dec, Viral gastroenteritis A08.4 [facility] [address] 57843- 9461 Nov, Viral gastroenteritis A08.4 [facility] [facility] [address] 74609- 9950 Oct, Acute upper respiratory infection, unspecified J06.9 and Other viral agents as the cause of diseases classified elsewhere B97.89 [facility] [address] 72697- 9939 Oct, Viral gastroenteritis A08.4 [facility] [address] 86940- 3051 Oct, Controlled type 2 diabetes mellitus without complication, without long-term current use of insulin E11.9 ; Encounter for immunization Z23 and Acute pain of left foot M79.672 [facility] [address] 93714- 3322 Sep, Viral gastroenteritis A08.4 [facility] [address] 58451- 5665 Aug, Viral gastroenteritis A08.4 [facility] [id number] [place] [address] 98451- 4096 Jul, Viral gastroenteritis A08.4 [facility] [address] 71913 -7029 Jul, Acute nasopharyngitis (common cold) J00 [facility] [address] 52712- 9174 Jun, Viral gastroenteritis A08.4 [facility] [address], [place] [address]- 0977 Jun, [facility] [id number] [place] [address] 11203- 2873 Jun, Viral gastroenteritis A08.4 [facility] [id number] [place] [address] 96183- 2634 May, Patellar tendinitis, left knee M76.52 [facility] [id number] [place] [address] 58801- 7855 May, Viral gastroenteritis A08.4 [facility] [id number] [place] [address] 10895- 6638 Apr, Viral gastroenteritis A08.4 and Hypothyroidism, unspecified E03.9 [facility] [id number] [place] [address] 97687- 1891 15 Apr, 2017 Pain in left knee M25.562 ; Acute left-sided low back pain without sciatica M54.5 and Type 2 diabetes mellitus without complications E11.9 [facility] [id number] [place] [address] 14518- 5352 Apr, Viral gastroenteritis A08.4 [facility] [id number] [place] [address] 87776- 3831 March, Viral gastroenteritis A08.4 [facility] [id number] [place] [address] 88747 -6254 Feb, Acute pain of left knee M25.562 [facility] [id number] [place] [address] 89750- 0749 Feb, Viral gastroenteritis A08.4 [facility] [facility] [id number] [place] [address] 84517- 1147 16 Jan, 2017 Viral gastroenteritis A08.4 and Controlled type 2 diabetes mellitus without complication, without long-term current use of insulin E11.9 [facility] [id number] [place] [address] 97144- 3674 Jan, [facility] [address], [place] [address]- 2988 16 Dec, 2016 Other chronic pain G89.29 ; Pain in left knee M25.562 ; Controlled type 2 diabetes mellitus without complication, without long-term current use of insulin E11.9 and Acute cystitis with hematuria N30.01 [facility] [id number] [place] [address] 20316- 5512 Dec, [facility] [id number] [place] [address] 40217- 3759 Nov, Type 2 diabetes mellitus without complications E11.9 [facility] [id number] [place] [address] 13618- 8609 Nov, [facility] [id number] [place] [address] 88417- 0088 Oct, [facility] [id number] [place] [address] 59735- 7399 Sep, [facility] [id number] [place] [address] 56392- 2729 Aug, [facility] [id number] [place] [address] 75888- 6515 Aug, [facility] [id number] [place] [address] 48647- 1294 Jul, Controlled type 2 diabetes mellitus without complication, without long-term current use of insulin E11.9 ; Callus of foot L84 and URI, acute J06.9 [facility] [id number] [place] [address] 99280- 7602 Jul, [facility] [id number] [place] [address] 93314- 3729 Jun, Onychomycosis B35.1 and Nail ingrowing L60.0 [place] [id number] [place] [address] 42260- 9878 Jun, [place] [address], [place] [address]- 2126 Jun, Lumbar back pain with radiculopathy affecting left lower extremity M54.17 [facility] [address] [place] [address] 79594- 2716 Jun, [facility] [id number] [place] [address] 55967- 6328 Jun, Other chronic pain G89.29 [facility] [id number] [place] [address] 35591- 2565 Jun, Other chronic pain G89.29 [facility] [id number] [place] [address] 67418- 4338 Jun, Type 2 diabetes mellitus without complications E11.9 [place] [id number] [place] [address] 18838- 8303 Jun, [facility] [id number] [place] [address] 41713- 1787 Jun, Onychomycosis B35.1 ; Callus L84 and Rash R21 [place] [id number] [place] [address] 63062- 5701 May, [facility] [id number] [place] [address] 14361- 3578 May, [facility] [id number] [place] [address] 33974- 6099 May, Type 2 diabetes mellitus without complications E11.9 [facility] [address], [place] [address]- 5762 May, [facility] [id number] [place] [address] 93209- 2882 Apr, [facility] [address] [place] [address] 50525- 8976 Apr, Type 2 diabetes mellitus without complications E11.9 ; Acquired hypothyroidism E03.9 ; Callus of foot L84 and Upper respiratory tract infection, unspecified type J06.9 [facility] [address], [place] [address]- 8613 March, [facility] [id number] [place] [address] 85179- 9035 Feb, [facility] [id number], [place] [address]- 0421 Jan, Diabetes mellitus without mention of complication, type II or unspecified type, not stated as uncontrolled 250.00 [facility] [address], [place] [address]- 2421 28 Jan, 2016 [facility] [id number] [place] [address] 59178- 9916 16 Jan, 2016 Diabetes E11.9 and Hypothyroidism E03.9 [facility] [id number] [place] [address] 51083- 8544 Dec, Diarrhea R19.7 [facility] [address], [place] [address]- 9391 Dec, [facility] [id number] [place] [address] 84100- 6528 Dec, Hypothyroidism, unspecified E03.9 [facility] [address], [place] [address]- 9999 Dec, [facility] [address], [place] [address]- 8264 Dec, Hypothyroidism, unspecified E03.9 [facility] [address], [place] [address]- 6157 04 Dec, 2015 Diarrhea R19.7 [facility] [address], [place] [address]- 2625 Dec, Diarrhea R19.7 [facility] [address], [place] [address]- 1480 Nov, [facility] [address], [place] [address]- 9871 Nov, [facility] [address], [place] [address]- 7682 Oct, [facility] [address] 8409 Sep, Postnasal drip R09.82 [facility] [id number] [place] [address] 07597- 1158 Sep, [facility] [address] [place] [address] 79680- 8311 Sep, [facility] [id number] [place] [address] 15836- 3175 Aug, [facility] [id number] [place] [address] 89576- 4634 Aug, [facility] [id number] [place] [address] 62223- 1705 Jul, Hypothyroidism 244.9 [facility] [address] [place] [address] 04472- 4852 Jul, Diabetes mellitus without mention of complication, type II or unspecified type, not stated as uncontrolled 250.00 [facility] [address], [place] [address]- 7855 Jul, [facility] [address], [place] [address]- 8487 Jul, [facility] [address], [place] [address]- 7083 Jun, [facility] [id number] [place] [address] 07527- 2766 May, Other chronic pain 338.29 [facility] [address], [place] [address]- 1373 May, Other chronic pain 338.29 [facility] [address], [place] [address]- 3308 May, [facility] [address], [place] [address]- 7698 May, [facility] [id number] [address]- 9467 Apr, Rash 782.1 ; Hypercholesterolemia 272.0 and Hypothyroidism 244.9 [facility] [id number] [place] [address] 05651- 7536 Apr, [facility] [address] [place] [address], [place] [address]- 1281 Apr, [facility] [id number] [place] [address] 05625- 7372 March, [facility] [id number] [address]- 8460 Feb, [facility] [address], [place] [address]- 7048 Feb, [facility] [address], [place] [address]- 9840 Jan, [facility] [address], [place] [address]- 5874 Jan, [facility] [address], [place] [address]- 1387 Jan, [facility] [address], [place] [address]- 7257 Jan, [facility] [id number], [place] [address]- 2512 Jan, [facility] [address], [place] [address]- 8773 Jan, [facility] [place] [facility] [address], [place] [address]- 0177 Jan, [facility] [id number] [place] [address]- 4344 16 Dec, 2014 [facility] [place] [facility] [address] [id number] [place] 8174 Dec, [facility] [place] [facility] [address] [id number] [place] [address]- 2944 Nov, [facility] [place] [facility] [address] [id number] [place] [address]- 8525 Nov, [facility] [place] [facility] [address] [id number] [place] [address]- 2125 Nov, [facility] [place] [facility] [address] [id number] [place] [address]- 9839 Nov, [facility] [place] [facility] [address] [id number] [place] [address]- 2665 Nov, [facility] [place] [facility] [address] [id number] [place] [address]- 2536 Nov, [facility] [place] [facility] [address] [id number] [place] [address]- 5835 Oct, [facility] [place] [facility] [address] [id number] [place] [address]- 8857 Oct, [facility] [place] [facility] [address] [id number] [place] [address]- 0014 Sep, [facility] [place] [facility] [address] [id number] [place] [address]- 6029 Sep, [facility] [place] [facility] [address] [id number] [place] [address]- 4435 Sep, [facility] [place] [facility] [address] [id number] [place] 6147 Sep, [facility] [place] [facility] [address] [id number] [place] [address]- 3414 Aug, [facility] [place] [facility] [address] [id number] [place] [address]- 8358 Aug, [facility] [place] [facility] [address] [id number] [place] [address]- 8130 Jul, [facility] [place] [facility] [address] [id number] [place] [address]- 1125 Jul, [facility] [place] [facility] [address] [id number] [place] [address]- 2097 Jun, [facility] [place] [facility] [address] [id number] [place] [address]- 1020 Jun, [facility] [place] [facility] [address] [id number] [place] [address]- 3251 Jun, [facility] [place] [facility] [address] [id number] [place] [address]- 0154 Jun, [facility] [place] [facility] [address] [id number] [place] [address]- 4288 May, [facility] [place] [facility] [address] [id number] [place] [address]- 1586 May, [facility] [place] [facility] [address] [id number] [place] [address]- 3938 May, [facility] [place] [facility] [address] [id number] [place] [address]- 7540 May, [facility] [place] [facility] [address] [id number] [place] [address]- 4355 Apr, [facility] [place] [facility] [address] [id number] [place] [address]- 9992 Apr, [facility] [place] [facility] [address] [id number] [place] [address]- 3307 March, [facility] [place] [facility] [address] [id number] [place] [address]- 0492 March, [facility] [place] [facility] [address] [id number] [place] [address]- 5125 March, [facility] [place] [facility] [address] [id number] [place] [address]- 9408 March, [facility] [place] [facility] [address] [id number] [place] [address]- 4824 March, [facility] [place] [facility] [address] [id number] [place] 4306 March, [facility] [place] [facility] [address] [id number] [place] [address]- 0705 Feb, [facility] [place] [facility] [address] [id number] [place] [address]- 8315 Feb, [facility] [place] [facility] [address] [id number] [place] [address]- 7899 Feb, [facility] [place] [facility] [address] [id number] [place] [address]- 9568 Feb, [facility] [place] [facility] [address] [id number] [place] [address]- 6813 Feb, [facility] [place] [facility] [address] [id number] [place] [address]- 5996 Feb, [facility] [place] [facility] [address] [id number] [place] [address]- 7978 Feb, [facility] [place] [facility] [address] [id number] [place] [address]- 2216 Feb, [facility] [place] [facility] [address] [id number] [place] [address]- 6250 Jan, [facility] [place] [facility] [address] [id number] [place] [address]- 1409 Jan, [facility] [place] [facility] [address] [id number] [place] [address]- 5165 Jan, [facility] [place] [facility] [address] [id number] [place] [address]- 8469 Jan, [facility] [place] [facility] [address] [id number] [place] [address]- 2012 Jan, [facility] [place] [facility] [address] [id number] [place] [address]- 0702 13 Jan, 2014 [facility] [place] [facility] [address] [id number] [place] [address]- 9621 Jan, [facility] [place] [facility] [address] [id number] [place] [address]- 6322 Jan, [facility] [place] [facility] [address] [id number] [place] [address]- 5950 Jan, [facility] [place] [facility] [address] [id number] [place] [address]- 7942 Dec, [facility] [place] [facility] [address] [id number] [place] [address]- 2237 Dec, [facility] [place] [facility] [address] [id number] [place] [address]- 5419 Nov, [facility] [place] [facility] [address] [id number] [place] [address]- 1577 Nov, [facility] [place] [facility] [address] [id number] [place] [address]- 4494 Nov, [facility] [place] [facility] [address] [id number] [place] [address]- 6557 Nov, [facility] [place] [facility] [address] [id number] [place] [address]- 1274 Nov, [facility] [place] [facility] [address] [id number] [place] [address]- 0402 Nov, [facility] [place] [facility] [address] [id number] [place] [address] Oct, [facility] [place] [facility] [address] [id number] [place] [address] Oct, [facility] [place] [facility] [address] [id number] [place] [address] Sep, [facility] [place] [facility] [address] [id number] [place] [address] Sep, [facility] [place] [facility] [address] [id number] [place] [address] Sep, [facility] [place] [facility] [address] [id number] [place] [address] Sep, [facility] [place] [facility] [address] [id number] [place] [address] Sep, [facility] [place] [facility] [address] [id number] [place] [address] Sep, [facility] [place] [facility] [address] [id number] [place] [address] Sep, [facility] [place] [facility] [address] [id number] [place] [address] Sep, [facility] [place] [facility] [address] [id number] [place] [address] Aug, [facility] [place] [facility] [address] [id number] [place] [address] Aug, [facility] [place] [facility] [address] [id number] [place] [address] Aug, [facility] [place] [facility] [address] [id number], [place] [address] Jul, [facility] [place] [facility] [address] [id number], [place] [address] Jul, [facility] [place] [facility] [address] [id number], [place] [address] Jul, [facility] [place] [facility] [address] [id number] [place] [address] Jun, [facility] [place] [facility] [address] [id number] [place] [address] Jun, [facility] [place] [facility] [address] [id number] [place] [address] Jun, [facility] [place] [facility] [address] [id number] [place] [address] Jun, [facility] [address] [id number] [place] [address] Jun, [facility] [address] [id number] [place] [address] Jun, [facility] [address] [id number] [place] [address] May, [facility] [address] [id number] [place] [address] May, [facility] [address] [id number] [place] [address] Apr, [facility] [address] [id number] [place] [address] Apr, [facility] [address] [id number] [place] [address] March, [facility] [address] [id number] [place] [address] Feb, [facility] [address] [id number] [place] [address] Feb, [facility] [address] [id number] [place] [address] Feb, [facility] [address] [id number] [place] [address] Feb, [facility] [address] [id number] [place] [address] Jan, [facility] [place] [facility] [address] [id number] [place] [address] Jan, [facility] [place] [facility] [address] [id number] [place] [address] Jan, [facility] [address] [id number] [place] [address] Jan, [facility] [address] [id number] [place] [address] Jan, [facility] [place] [facility] [address] [id number] [place] [address] Dec, [facility] [place] [facility] [address] [id number] [place] [address] Nov, [facility] [place] [facility] [address] [id number] [place] [address] Nov, [facility] [place] [facility] [address] [id number] [place] [address] Oct, [facility] [place] [facility] [address] [id number] [place] [address] Oct, [facility] [address] [id number] [place] [address] Oct, [facility] [place] [facility] [address] [id number] [place] [address] Oct, [facility] [place] [facility] [address] [id number] [place] [address] Oct, [facility] [place] [facility] [address] [id number] [place] [address] Oct, [facility] [place] [facility] [address] [id number] [place] [address] Oct, [facility] [place] [facility] [address] [id number] [place] [address] Oct, [facility] [place] [facility] [address] [id number] [place] [address] Aug, [facility] [place] [facility] [address] [id number] [place] [address] Aug, [facility] [place] [facility] [address] [id number] [place] [address] Aug, [facility] [place] [facility] [address] [id number] [place] [address] Aug, [facility] [place] [facility] [address] [id number] [place] [address] Aug, [facility] [place] [facility] [address] [id number] [place] [address] 19 Aug, 2012 [facility] [place] [facility] [address] [id number] [place] [address] 15 Aug, 2012 [facility] [place] [facility] [address] [id number] [place] [address] 27 Jul, 2012 [facility] [place] [facility] [address] [id number] [place] [address] 27 Jul, 2012 [facility] [place] [facility] [address] [id number] [place] [address] 27 Jul, 2012 [facility] [place] [facility] [address] [id number] [place] [address] 27 Jul, 2012 [facility] [place] [facility] [address] [id number] [place] [address] 03 Jul, 2012 [facility] [place] [facility] [address] [id number] [place] [address] Jun, [facility] [place] [facility] [address] [id number] [place] [address] Jun, [facility] [place] [facility] [address] [id number] [place] [address] Jun, [facility] [place] [facility] [address] [id number] [place] [address] May, [facility] [place] [facility] [address] [id number] [place] [address] May, [facility] [place] [facility] [address] [id number] [place] [address] May, [facility] [place] [facility] [address] [id number] [place] [address] May, [facility] [place] [facility] [address] [id number] [place] [address] 23 May, 2012 [facility] [address] [id number] [place] [address] 17 May, 2012 [facility] [place] [facility] [address] [id number] [place] [address] May, [facility] [address] [id number] [place] [address] Apr, [facility] [place] [facility] [address] [id number] [place] [address] Apr, [facility] [address] [id number] [place] [address] March, [facility] [address] [id number] [place] [address] Feb, [facility] [address] [id number] [place] [address] 30 Jan, 2012 [facility] [address] [id number] [place] [address] Jan, [facility] [place] [facility] [address] [id number] [place] [address] Jan, [facility] [address] [id number] [place] [address] Jan, [facility] [place] [facility] [address] [id number] [place] [address] Jan, [facility] [place] [facility] [address] [id number] [place] [address] Jan, [facility] [place] [facility] [address] [id number] [place] [address] Jan, [facility] [place] [facility] [address] [id number] [place] [address] Jan, [facility] [place] [facility] [address] [id number] [place] [address] Jan, [facility] [address] [id number] [place] [address] Jan, [facility] [place] [facility] [address] [id number] [place] [address] Dec, [facility] [place] [facility] [address] [id number] [place] [address] Dec, [facility] [place] [facility] [address] [id number] [place] [address] Dec, [facility] [place] [facility] [address] [id number] [place] [address] Dec, [facility] [place] [facility] [address] [id number] [place] [address] Dec, [facility] [place] [facility] [address] [id number] [place] [address] Dec, [facility] [place] [facility] [address] [id number] [place] [address] Dec, [facility] [place] [facility] [address] [id number] [place] [address] Dec, [facility] [place] [facility] [address] [id number] [place] [address] Nov, [facility] [place] [facility] [address] [id number] [place] [address] Nov, [facility] [place] [facility] [address] [id number] [place] [address] Nov, [facility] [place] [facility] [address] [id number] [place] [address] Oct, [facility] [place] [facility] [address] [id number] [place] [address] Oct, [facility] [place] [facility] [address] [id number] [place] [address] Oct, [facility] [place] [facility] [address] [facility] [id number] [place] [id number] Oct, [facility] [address] [facility] [id number] [place] [address] Sep, IMMUNIZATIONS No Known Immunizations SOCIAL HISTORY Never Assessed REASON FOR VISIT Referal for Back Brace PLAN OF CARE VITAL SIGNS MEDICATIONS Unknown [...] intraocular lens prosthesis Hospitalization History admitted to [facility] for bronchitis then went into cardiac arrest and was resuscitated. She was in the hospital for 7 days. 2012 Hospitalization History surgeries
--- OUTSIDE RECORDS SUMMARY | 2019-01-07 23:53 | XMS REPORT ---
Author Author NALINI GOMEZ Organization [facility] Address [address] [place] [address] Care Team Providers Care [employer] Examiner Name Role Phone NALINI GOMEZ Unavailable PROBLEMS Type Condition ICD9-CM Code ZOO31-JJ Code Onset Dates Condition Status SNOMED Code Problem Hypothyroidism, unspecified E03.9 Active 20950017 Problem Hypothyroidism (acquired) E03.9 Active 33836931 Problem Acquired hypothyroidism E03.9 Active 258216500 Problem Other chronic pain G89.29 Active 29608852 Problem Hypertension, benign I10 Active 16940261 Problem Episode of recurrent major depressive disorder, unspecified depression episode severity F33.9 Active 676923259 Problem Mixed hyperlipidemia E78.2 Active 523867936 Problem Stress incontinence of urine N39.3 Active 65252083 Problem Urinary, incontinence, stress female N39.3 Active 15985232 Problem Hypercholesterolemia 272.0 Active 55759133 Problem Type 2 diabetes mellitus without complications E11.9 Active 750212531 Problem Other chronic pain G89.29 Active 02991416 Problem Panlobular emphysema J43.1 Active 5670932 Problem Controlled type 2 diabetes mellitus without complication, without long -term current use of insulin E11.9 Active 802890608 ALLERGIES Substance Reaction Event Type Date Status Rocephin Unknown Drug Allergy Apr, Active Penicillin V Potassium Unknown Drug Allergy Apr, Active Nsaids (non-steroidal Anti-inflammatory Drug) renal insuffiency Non Drug Allergy Apr, Active ENCOUNTERS Encounter Location Date Diagnosis [facility] [address] [facility] [id number] [address] Jun, Other chronic pain G89.29 [facility] [address] [id number] [address] 92[address] Jun, Other chronic pain G89.29 [facility] [address] [facility] [id number] [address] Jun, Stress incontinence of urine N39.3 ; Controlled type 2 diabetes mellitus without complication, without long-term current use of insulin E11.9 and Hypertension, benign I10 [place] [address] [address]- [address] Jun, [place] [address] 99407- 6398 Jun, [place] [address] 90721- 5433 May, [place] [address] 14458- 9392 May, Viral gastroenteritis A08.4 [place] [address] 46048- 5985 May, Acute diffuse otitis externa of left ear H60.312 and Acquired hypothyroidism E03.9 [place] [address] 04751- 2030 May, Episode of recurrent major depressive disorder, unspecified depression episode severity F33.9 ; Urinary, incontinence, stress female N39.3 ; Mixed hyperlipidemia E78.2 and Hypothyroidism (acquired) E03.9 [place] [address] [address] [id number] [place] [address] 24455- 6798 May, [place] [id number] [place] [address] 46812- 9911 May, Viral gastroenteritis A08.4 [place] [address] 06374- 1298 Apr, Acute diffuse otitis externa of left ear H60.312 and Hypothyroidism (acquired) E03.9 [place] [address] 83444- 8923 Apr, Viral gastroenteritis A08.4 and Acquired hypothyroidism E03.9 [place] [address] 12536- 3406 Apr, Type 2 diabetes mellitus without complications E11.9 and Panlobular emphysema J43.1 [place] [id number] [place] [address] 18422- 1068 Apr, Viral gastroenteritis A08.4 [facility] [id number] [place] [address] 81798- 4057 March, [place] [id number] [place] [address] 41249- 1520 March, Viral gastroenteritis A08.4 [place] [address] [id number] [place] [address] 44048- 0132 Feb, Panlobular emphysema J43.1 [place] [id number] [place] [address] 96566- 5209 Feb, Panlobular emphysema J43.1 [place] [id number] [place] [address] 94737- 4116 Feb, [place] [id number] [place] [address] 46180- 3536 Feb, [place] [id number] [place] [address] 25516- 9056 Feb, Viral gastroenteritis A08.4 [place] [id number] [place] [address] 89906- 3954 Feb, Head lice B85.0 [place] [id number] [place] [address] 58045- 6632 Feb, Medicare annual wellness visit, initial Z00.00 ; Head lice B85.0 ; Tinea corporis B35.4 and Enlarged lymph node R59.9 [place] [id number] [place] [address] 68426- 5365 Jan, Viral gastroenteritis A08.4 [place] [id number] [place] [address] 97143- 6692 Jan, [place] [address] [place] [id number] [place] [address] 60007- 9055 Dec, Controlled type 2 diabetes mellitus without complication, without long-term current use of insulin E11.9 [place] [id number] [place] [address] 56716- 5062 Dec, [place] [id number] [place] [address] 40641- 8235 Dec, Viral gastroenteritis A08.4 [place] [id number] [place] [address] 74508- 2183 Nov, Viral gastroenteritis A08.4 [place] [address] 09025- 0604 Oct, Acute upper respiratory infection, unspecified J06.9 and Other viral agents as the cause of diseases classified elsewhere B97.89 [place] [address] 65613- 4629 Oct, Viral gastroenteritis A08.4 [place] [id number] [place] [address] 82221- 6994 Oct, Controlled type 2 diabetes mellitus without complication, without long-term current use of insulin E11.9 ; Encounter for immunization Z23 and Acute pain of left foot M79.672 [place] [id number] [place] [address] 12669- 4496 Sep, Viral gastroenteritis A08.4 [place] [id number] [place] [address] 29749- 3093 Aug, Viral gastroenteritis A08.4 [place] [id number] [place] [address] 39427- 0706 Jul, Viral gastroenteritis A08.4 [facility] [id number] [place] [address] 60343 -4025 Jul, Acute nasopharyngitis (common cold) J00 [place] [address] [id number] [place] [address] 79063- 3609 Jun, Viral gastroenteritis A08.4 [place] [address] [address]- 0776 Jun, [place] [address] [id number] [place] [address] 97807- 2625 Jun, Viral gastroenteritis A08.4 [place] [address] [id number] [place] [address] 66298- 8793 May, Patellar tendinitis, left knee M76.52 [place] [address] [id number] [place] [address] 05831- 7222 May, Viral gastroenteritis A08.4 [place] [address] [id number] [place] [address] 14147- 6870 Apr, Viral gastroenteritis A08.4 and Hypothyroidism, unspecified E03.9 [place] [address] [place] [address] [id number] [place] [address] 96681- 8669 Apr, Pain in left knee M25.562 ; Acute left-sided low back pain without sciatica M54.5 and Type 2 diabetes mellitus without complications E11.9 [place] [address] [address] [id number] [place] [address] 28943- 6737 Apr, Viral gastroenteritis A08.4 [place] [id number] [place] [address] 93920- 7562 March, Viral gastroenteritis A08.4 [facility] [id number] [place] [address] 21023 -7053 Feb, Acute pain of left knee M25.562 [place] [id number] [place] [address] 20891- 6436 Feb, Viral gastroenteritis A08.4 [place] [address] [address] [id number] [place] [address] 70885- 4951 Jan, Viral gastroenteritis A08.4 and Controlled type 2 diabetes mellitus without complication, without long-term current use of insulin E11.9 [place] [address] [id number] [place] [address] 34105- 3522 14 Jan, 2017 [place] [id number] [place] [address] 62487- 8854 16 Dec, 2016 Other chronic pain G89.29 ; Pain in left knee M25.562 ; Controlled type 2 diabetes mellitus without complication, without long-term current use of insulin E11.9 and Acute cystitis with hematuria N30.01 [place] [address] [id number] [place] [address] 98489- 5385 Dec, [place] [address] [id number] [place] [address] 89648- 1788 Nov, Type 2 diabetes mellitus without complications E11.9 [place] [address] [id number] [place] [address] 70350- 5005 Nov, [place] [address] [id number] [place] [address] 83736- 1565 Oct, [place] [address] [id number] [place] [address] 14141- 5914 Sep, [place] [address] [id number] [place] [address] 49941- 7262 Aug, [place] [address] [id number] [place] [address] 01271- 1439 Aug, [place] [address] [id number] [place] [address] 62899- 7959 Jul, Controlled type 2 diabetes mellitus without complication, without long-term current use of insulin E11.9 ; Callus of foot L84 and URI, acute J06.9 [place] [address] [address] [id number] [place] [address] 14498- 3907 13 Jul, 2016 [place] [address] [id number] [place] [address] 66535- 8123 Jun, Onychomycosis B35.1 and Nail ingrowing L60.0 [place] [address] [place] [address] [id number] [place] [address] 26532- 3127 Jun, [facility] [id number] [place] [address] 94658- 0843 Jun, Lumbar back pain with radiculopathy affecting left lower extremity M54.17 [facility] [address] [id number] [place] [address] 18349- 2278 Jun, [facility] [id number] [place] [address] 90243- 3757 Jun, Other chronic pain G89.29 [facility] [address] [id number] [place] [address] 41658- 3882 Jun, Other chronic pain G89.29 [facility] [id number] [place] [address] 80097- 5527 Jun, Type 2 diabetes mellitus without complications E11.9 [facility] [id number] [place] [address] 12911- 4626 Jun, [facility] [id number] [place] [address] 99573- 4995 Jun, Onychomycosis B35.1 ; Callus L84 and Rash R21 [facility] [id number] [place] [address] 90905- 3159 May, [facility] [id number] [place] [address] 01773- 8424 May, [facility] [id number] [place] [address] 36724 2541 May, Type 2 diabetes mellitus without complications E11.9 [facility] [id number] [place] [address] 71858- 4901 14 May, 2016 [facility] [id number] [place] [address] 15837- 2952 Apr, [facility] [id number] [place] [address] 42483- 8519 Apr, Type 2 diabetes mellitus without complications E11.9 ; Acquired hypothyroidism E03.9 ; Callus of foot L84 and Upper respiratory tract infection, unspecified type J06.9 [facility] [id number] [place] [address] 06353- 6620 March, [facility] [id number] [place] [address] 30438- 7451 Feb, [facility] [address] 96912- 8352 Jan, Diabetes mellitus without mention of complication, type II or unspecified type, not stated as uncontrolled 250.00 [facility] [id number] [place] [address] 25953- 1930 Jan, [facility] [id number] [place] [address] 49734- 6480 Jan, Diabetes E11.9 and Hypothyroidism E03.9 [facility] [id number] [place] [address] 66134- 1790 Dec, Diarrhea R19.7 [facility] [id number] [place] [address] 13823- 6925 Dec, [facility] [id number] [place] [address] 25839- 7645 Dec, Hypothyroidism, unspecified E03.9 [facility] [id number] [place] [address] 36243- 4291 Dec, [facility] [id number] [place] [address] 49501- 8978 Dec, Hypothyroidism, unspecified E03.9 [facility] [id number] [place] [address] 00520- 6508 Dec, Diarrhea R19.7 [facility] [id number] [place] [address] 68699- 7347 Dec, Diarrhea R19.7 [facility] [address] [id number] [place] [address] [place] [address]- 9544 Nov, [facility] [address] [address]- 1093 Nov, [facility] [address] [address]- 0575 Oct, [facility] [id number] [place] [address] 58165- 1450 Sep, Postnasal drip R09.82 [facility] [id number] [place] [address] 22525- 2201 Sep, [facility] [id number] [place] [address] 51076- 4048 Sep, [facility] [id number] [place] [address] 50969- 1268 Aug, [facility] [id number] [place] [address] 74120- 5989 Aug, [facility] [id number] [place] [address] 13770- 8227 Jul, Hypothyroidism 244.9 [facility] [id number] [place] [address] 91200- 4840 Jul, Diabetes mellitus without mention of complication, type II or unspecified type, not stated as uncontrolled 250.00 [facility] [address] [address]- 4741 Jul, [facility] [address] [address]- 7593 Jul, [facility] [id number] [place] [address] 63873- 4573 Jun, [facility] [address] 2388 May, Other chronic pain 338.29 [facility] [id number] [place] [address] 74673- 6335 May, Other chronic pain 338.29 [facility] [address] [facility] [id number] [place] [address]- 5521 09 May, 2015 [facility] [address] [facility] [id number] [place] [address]- 3156 08 May, 2015 [facility] [address] [place] [address]- 2298 Apr, Rash 782.1 ; Hypercholesterolemia 272.0 and Hypothyroidism 244.9 [facility] [address] [facility] [id number] [place] [address]- 7428 Apr, [facility] [id number] [place] [address], [place] [address]- 4039 Apr, [facility] [id number] [place] [address]- 3731 March, [facility] [id number] [place] [address], [place] [address]- 5005 Feb, [facility] [address] [address]- 0281 Feb, [facility] [address] [place] [address]- 2766 Jan, [facility] [address] [place] [address]- 0195 Jan, [facility] [address] [place] [address]- 4157 25 Jan, 2015 [facility] [id number] [address]- 1331 Jan, [facility] [id number] [place] [address]- 3277 Jan, [facility] [id number] [place] [address]- 4786 Jan, [facility] [id number] [address]- 1781 Jan, [facility] [place] [facility] [address] [id number] [place] [address]- 4015 Dec, [facility] [place] [facility] [address] [id number] [place] [address]- 7419 Dec, [facility] [place] [facility] [address] [id number] [place] [address]- 7522 Nov, [facility] [place] [facility] [address] [id number] [place] [address]- 7851 Nov, [facility] [place] [facility] [address] [id number] [place] [address]- 8100 Nov, [facility] [place] [facility] [address] [id number] [place] [address]- 8971 Nov, [facility] [place] [facility] [address] [id number] [place] [address]- 2462 Nov, [facility] [place] [facility] [address] [id number] [place] [address]- 4712 Nov, [facility] [place] [facility] [address] [id number] [place] [address]- 8080 Oct, [facility] [place] [facility] [address] [id number] [place] [address]- 3264 Oct, [facility] [place] [facility] [address] [id number] [place] [address]- 7435 Sep, [facility] [place] [facility] [address] [id number] [place] [address]- 0721 Sep, [facility] [place] [facility] [address] [id number] [place] [address]- 2748 Sep, [facility] [place] [facility] [address] [id number] [place] [address]- 9903 Sep, [facility] [place] [facility] [address] [id number] [place] [address]- 4356 Aug, [facility] [place] [facility] [address] [id number] [place] [address]- 2622 Aug, [facility] [place] [facility] [address] [id number] [place] [address]- 1342 Jul, [facility] [place] [facility] [address] [id number] [place] 4254 Jul, [facility] [place] [facility] [address] [id number] [place] [address]- 6549 Jun, [facility] [place] [facility] [address] [id number] [place] [address]- 5808 Jun, [facility] [place] [facility] [address] [id number] [place] [address]- 8394 Jun, [facility] [place] [facility] [address] [id number] [place] [address]- 1704 Jun, [facility] [place] [facility] [address] [id number] [place] [address]- 0491 May, [facility] [place] [facility] [address] [id number] [place] [address]- 2360 May, [facility] [place] [facility] [address] [id number] [place] [address]- 6691 May, [facility] [place] [facility] [address] [id number] [place] 4326 May, [facility] [place] [facility] [address] [id number] [place] [address]- 0098 Apr, [facility] [place] [facility] [address] [id number] [place] [address]- 9504 Apr, [facility] [place] [facility] [address] [id number] [place] [address]- 1936 March, [facility] [place] [facility] [address] [id number] [place] 0732 March, [facility] [place] [facility] [address] [id number] [place] [address]- 9187 March, [facility] [place] [facility] [address] [id number] [place] [address]- 4816 March, [facility] [place] [facility] [address] [id number] [place] [address]- 2894 March, [facility] [place] [facility] [address] [id number] [place] [address]- 0104 March, [facility] [place] [facility] [address] [id number] [place] [address]- 5557 Feb, [facility] [place] [facility] [address] [id number] [place] [address]- 1433 Feb, [facility] [place] [facility] [address] [id number] [place] [address]- 4124 Feb, [facility] [place] [facility] [address] [id number] [place] [address]- 3226 Feb, [facility] [place] [facility] [address] [id number] [place] [address]- 7329 Feb, [facility] [place] [facility] [address] [id number] [place] [address]- 9731 Feb, [facility] [place] [facility] [address] [id number] [place] [address]- 0725 Feb, [facility] [place] [facility] [address] [id number] [place] [address]- 0599 Feb, [facility] [place] [facility] [address] [id number] [place] [address]- 0897 Jan, [facility] [place] [facility] [address] [id number] [place] [address]- 0275 Jan, [facility] [place] [facility] [address] [id number] [place] [address]- 5931 Jan, [facility] [place] [facility] [address] [id number] [place] [address]- 3212 Jan, [facility] [place] [facility] [address] [id number] [place] [address]- 8547 13 Jan, 2014 [facility] [place] [facility] [address] [id number] [place] [address]- 7499 Jan, [facility] [place] [facility] [address] [id number] [place] [address]- 3574 Jan, [facility] [place] [facility] [address] [id number] [place] [address]- 5066 Jan, [facility] [place] [facility] [address] [id number] [place] [address]- 5770 Jan, [facility] [place] [facility] [address] [id number] [place] [address]- 3371 Dec, [facility] [place] [facility] [address] [id number] [place] [address] Dec, [facility] [place] [facility] [address] [id number] [place] [address] Nov, [facility] [place] [facility] [address] [id number] [place] [address] Nov, [facility] [place] [facility] [address] [id number] [place] [address] Nov, [facility] [place] [facility] [address] [id number] [place] [address] Nov, [facility] [place] [facility] [address] [id number] [place] [address] Nov, [facility] [place] [facility] [address] [id number] [place] [address] Nov, [facility] [place] [facility] [address] [id number] [place] [address] Oct, [facility] [place] [facility] [address] [id number] [place] [address] Oct, [facility] [place] [facility] [address] [id number] [place] [address] Sep, [facility] [place] [facility] [address] [id number] [place] [address] Sep, [facility] [address] [id number] [place] [address] Sep, [facility] [place] [facility] [address] [id number] [place] [address] Sep, [facility] [address] [id number] [place] [address] Sep, [facility] [place] [facility] [address] [id number] [place] [address] Sep, [facility] [address] [id number] [place] [address] Sep, [facility] [place] [facility] [address] [id number] [place] [address] Sep, [facility] [place] [facility] [address] [id number] [place] [address] Aug, [facility] [address] [id number] [place] [address] Aug, [facility] [place] [facility] [address] [id number] [place] [address] Aug, [facility] [address] [id number] [place] [address] Jul, [facility] [place] [facility] [address] [id number] [place] [address] Jul, [facility] [place] [facility] [address] [id number] [place] [address] Jul, [facility] [place] [facility] [address] [id number] [place] [address] Jun, [facility] [place] [facility] [address] [id number] [place] [address] Jun, [facility] [place] [facility] [address] [id number] [place] [address] Jun, [facility] [address] [id number] [place] [address] Jun, [facility] [place] [facility] [address] [id number] [place] [address] Jun, [facility] [place] [facility] [address] [id number] [place] [address] Jun, [facility] [place] [facility] [address] [id number] [place] [address] May, [facility] [place] [facility] [address] [id number] [place] [address] May, [facility] [place] [facility] [address] [id number] [place] [address] Apr, [facility] [place] [facility] [address] [id number] [place] [address] Apr, [facility] [place] [facility] [address] [id number] [place] [address] March, [facility] [place] [facility] [address] [id number] [place] [address] Feb, [facility] [place] [facility] [address] [id number] [place] [address] Feb, [facility] [place] [facility] [address] [id number] [place] [address] Feb, [facility] [place] [facility] [address] [id number] [place] [address] Feb, [facility] [place] [facility] [address] [id number] [place] [address] Jan, [facility] [place] [facility] [address] [id number] [place] [address] [address] Jan, [facility] [place] [facility] [address] [id number] [place] [address] Jan, [facility] [place] [facility] [address] [address] [id number] [place] [address] Jan, [facility] [address] [id number] [place] [address] Jan, [facility] [place] [facility] [address] [id number] [place] [address] Dec, [facility] [address] [id number] [place] [address] Nov, [facility] [place] [facility] [address] [id number] [place] [address] Nov, [facility] [address] [id number] [place] [address] Oct, [facility] [place] [facility] [address] [id number] [place] [address] Oct, [facility] [address] [id number] [place] [address] Oct, [facility] [place] [facility] [address] [id number] [place] [address] Oct, [facility] [place] [facility] [address] [id number] [place] [address] Oct, [facility] [place] [facility] [address] [facility] [id number] [place] [address] Oct, [facility] [place] [facility] [address] [id number] [place] [address] Oct, [facility] [place] [facility] [address] [id number] [place] [address] Oct, [facility] [place] [facility] [address] [id number] [place] [address] Aug, [facility] [place] [facility] [address] [id number] [place] [address] Aug, [facility] [place] [facility] [address] [id number] [place] [address] Aug, [facility] [place] [facility] [address] [id number] [place] [address] 26 Aug, 2012 [facility] [place] [facility] [address] [id number] [place] [address] Aug, [facility] [place] [facility] [address] [id number] [place] [address] 19 Aug, 2012 [facility] [place] [facility] [address] [id number] [place] [address] 15 Aug, 2012 [facility] [place] [facility] [address] [id number] [place] [address] 27 Jul, 2012 [facility] [place] [facility] [address] [id number] [place] [address] 27 Jul, 2012 [facility] [place] [facility] [address] [id number] [place] [address] 27 Jul, 2012 [facility] [place] [facility] [address] [id number] [place] [address] 27 Jul, 2012 [facility] [place] [facility] [address] [id number] [place] [address] 03 Jul, 2012 [facility] [place] [facility] [address] [id number] [place] [address] 28 Jun, 2012 [facility] [place] [facility] [address] [id number] [place] [address] Jun, [facility] [place] [facility] [address] [id number] [place] [address] Jun, [facility] [place] [facility] [address] [id number] [place] [address] May, [facility] [place] [facility] [address] [id number] [place] [address] May, [facility] [place] [facility] [address] [id number] [place] [address] May, [facility] [place] [facility] [address] [id number] [place] [address] May, [facility] [place] [facility] [address] [id number] [place] [address] May, [facility] [place] [facility] [address] [id number] [place] [address] May, [facility] [place] [facility] [address] [id number] [place] [address] May, [facility] [place] [facility] [address] [id number] [place] [address] Apr, [facility] [place] [facility] [address] [id number] [place] [address] Apr, [facility] [place] [facility] [address] [id number] [place] [address] March, [facility] [place] [facility] [address] [id number] [place] [address] Feb, [facility] [place] [facility] [address] [id number] [place] [address] 30 Jan, 2012 [facility] [place] [facility] [address] [id number] [place] [address] Jan, [facility] [place] [facility] [address] [id number] [place] [address] Jan, [facility] [place] [facility] [address] [id number] [place] [address] Jan, [facility] [place] [facility] [address] [id number] [place] [address] Jan, [facility] [place] [facility] [address] [id number] [place] [address] Jan, [facility] [place] [facility] [address] [id number] [place] [address] Jan, [facility] [place] [facility] [address] [id number] [place] [address] Jan, [facility] [place] [facility] [address] [id number] [place] [address] Jan, [facility] [place] [facility] [address] [id number] [place] [address] Jan, [facility] [place] [facility] [address] [id number] [place] [address] Dec, [facility] [place] [facility] [address] [id number] [place] [address] Dec, [facility] [place] [facility] [address] [id number] [place] [address] Dec, [facility] [place] [facility] [address] [id number] [place] [address] Dec, [facility] [place] [facility] [address] [id number] [place] [address] Dec, [facility] [place] [facility] [address] [id number] [place] [address] Dec, [facility] [place] [facility] [address] [id number] [place] [address] Dec, [facility] [place] [facility] [address] [id number] [place] [address] Dec, [facility] [place] [facility] [address] [id number] [place] [address] Nov, [facility] [place] [facility] [address] [id number] [place] [address] Nov, [facility] [place] [facility] [address] [id number] [place] [address] Nov, [facility] [place] [facility] [address] [id number] [place] [address] Oct, [facility] [place] [facility] [address] [id number] [place] [address] 14 Oct, 2011 [facility] [place] [facility] [address] [id number] [place] [address] Oct, [facility] [address] [facility] [id number] [place] [address] Oct, [facility] [address] [facility] [id number] [place] [address] Sep, IMMUNIZATIONS No Known Immunizations SOCIAL HISTORY Never Assessed REASON FOR VISIT Ear pain, PT reports her left ear has been causing her pain this last two days. PT notes a rash broke out behind her ear [facility] PLAN OF CARE VITAL SIGNS Height 64 in 2018-05-12 Weight 216.7 lbs 2018-05-12 Temperature 98.0 degrees Fahrenheit 2018-05-12 Heart Rate 77 bpm 2018-05-12 Respiratory Rate 20 2018-05-12 BMI 37.19 kg/m2 2018-05-12 Blood pressure systolic 128 mmHg 2018-05-12 Blood pressure diastolic 72 mmHg 2018-05-12 MEDICATIONS Medication Instructions Dosage Frequency Start Date End Date Duration Status Ondansetron HCl 4 MG TAKE ONE TABLET BY MOUTH THREE TIMES DAILY FOR 10 DAYS 10 Active Advair Diskus 500-50 MCG/DOSE 1 puff 12h Active Atorvastatin Calcium 40 mg Orally Once a day 1 tablet 24h Feb, 30 day(s) Active Blood Glucose Test - In Vitro 2 times a day, one touch ultra test blood sugar Active Citalopram Hydrobromide 10 MG TAKE ONE TABLET BY MOUTH ONCE DAILY 90 Active Triamcinolone Acetonide 0.1 % Externally Twice a day 1 application to affected area 12h Apr, Active Myrbetriq 50 MG TAKE ONE TABLET BY MOUTH ONCE DAILY Apr, 30 Active Kexnmanc-Srfpracfp-CZ 1 % Otic Three times a day 4 drops into affected ear 8h Apr, Active Natroba 0.9 % Externally one time, may repeat if needed apply contents of bottle to cover scalp and hair Feb, Active Metformin HCl 500 mg 2 tablets 12h Active [place] 10-325 MG Orally every 6 hrs 1 tablet as needed 6h Apr, 28 days Active Cetirizine HCl 10 MG TAKE ONE TABLET BY MOUTH ONCE DAILY 30 Active Ranitidine HCl 150 MG TAKE ONE TABLET BY MOUTH TWICE DAILY NEEDED 90 Active Zithromax Z-Live 250 MG Orally Once a day 2 tablets on the first day, then 1 tablet daily for 4 days 24h Apr, Apr, 5 day(s) Active Ropinirole HCl 4 MG TAKE ONE TABLET BY MOUTH ONCE DAILY 90 Active Terbinafine HCl 1 % Externally Twice a day 1 application to affected area 12h Feb, Active Fish Oil 1000 MG Orally Twice a day 2 capsules 12h 11 Apr, 2018 Active Toviaz 8 MG TAKE ONE TABLET BY MOUTH ONCE DAILY 90 Active OneTouch Delica Lancets 33G 33 test blood sugar 12h Active Blood Glucose Monitor System w/Device subcutaneously 2 times a day test blood sugar 12h Active Ventolin HFA 108 (90 Base) MCG/ACT Inhalation every 6 hrs 2 puffs as needed 6h 30 Feb, 2018 Active Gabapentin 100 MG TAKE ONE CAPSULE BY MOUTH ONCE DAILY 90 Active Zofran 4 MG Orally 3 times a day 1 tablet 8h 10 Active Levothyroxine Sodium 150 MCG Orally Once a day 1 tablet on an empty stomach in the morning 24h Active Montelukast Sodium 10 MG 1 tablet 24h 30 Active RESULTS No Results PROCEDURES Procedure Date Ordered Result Body Site [facility] V[facility] ESTABLISHED PATIENT May 12, 2018 INSTRUCTIONS MEDICATIONS ADMINISTERED No Known Medications [...] intraocular lens prosthesis Hospitalization History admitted to [facility] for bronchitis then went into cardiac arrest and was resuscitated. She was in the hospital for 7 days. 2012 Hospitalization History surgeries
--- OUTSIDE RECORDS SUMMARY | 2019-01-07 23:53 | XMS REPORT ---
Author Author NALINI GOMEZ Organization [facility] Address [address] [place] [address] Care Team Providers Care Continuous Improvement Coach Name Role Phone NALINI GOMEZ Unavailable PROBLEMS Type Condition ICD9-CM Code [id number]-XD Code Onset Dates Condition Status SNOMED Code Problem Hypothyroidism, unspecified E03.9 Active 48286974 Problem Hypothyroidism (acquired) E03.9 Active 10361497 Problem Acquired hypothyroidism E03.9 Active 779090964 Problem Other chronic pain G89.29 Active 83796649 Problem Hypertension, benign I10 Active 77822038 Problem Episode of recurrent major depressive disorder, unspecified depression episode severity F33.9 Active 704044919 Problem Mixed hyperlipidemia E78.2 Active 783713188 Problem Stress incontinence of urine N39.3 Active 58001614 Problem Urinary, incontinence, stress female N39.3 Active 35308305 Problem Hypercholesterolemia 272.0 Active 65066988 Problem Type 2 diabetes mellitus without complications E11.9 Active 489048185 Problem Other chronic pain G89.29 Active 84180085 Problem Panlobular emphysema J43.1 Active 7549721 Problem Controlled type 2 diabetes mellitus without complication, without long -term current use of insulin E11.9 Active 650124988 ALLERGIES No Information ENCOUNTERS Encounter Location Date Diagnosis [facility] [address] [address] Jun, [facility] [address] [address] Jun, Other chronic pain G89.29 [facility] [id number] [place] [address] 08400- 7176 Jun, Other chronic pain G89.29 [facility] [id number] [address] Jun, Stress incontinence of urine N39.3 ; Controlled type 2 diabetes mellitus without complication, without long-term current use of insulin E11.9 and Hypertension, benign I10 [place] [id number] [place] [address] 67707- 3356 Jun, [place] [address] 8[address]65- 5080 Jun, [place] [address] 73083- 1361 May, [place] [address] 47555- 5865 May, Viral gastroenteritis A08.4 [place] [address] 71929- 4209 May, Acute diffuse otitis externa of left ear H60.312 and Acquired hypothyroidism E03.9 [place] [address] 28506- 8968 May, Episode of recurrent major depressive disorder, unspecified depression episode severity F33.9 ; Urinary, incontinence, stress female N39.3 ; Mixed hyperlipidemia E78.2 and Hypothyroidism (acquired) E03.9 [place] [id number] [place] [address] 77260- 9965 May, [place] [address] 83067- 6728 May, Viral gastroenteritis A08.4 [place] [address] 80562- 5127 Apr, Acute diffuse otitis externa of left ear H60.312 and Hypothyroidism (acquired) E03.9 [place] [address] 26721- 6852 Apr, Viral gastroenteritis A08.4 and Acquired hypothyroidism E03.9 [place] [id number] [place] [address] 91645- 4186 Apr, Type 2 diabetes mellitus without complications E11.9 and Panlobular emphysema J43.1 [facility] [id number] [place] [address] 69469- 2487 Apr, Viral gastroenteritis A08.4 [facility] [address] 80577- 7434 March, [facility] [address] 49257- 2255 March, Viral gastroenteritis A08.4 [facility] [address] 56430- 1442 Feb, Panlobular emphysema J43.1 [facility] [address] 33974- 9481 Feb, Panlobular emphysema J43.1 [place] [address] 93519- 6437 Feb, [facility] [address] 42167- 3413 Feb, [facility] [id number] [place] [address] 19219- 4390 Feb, Viral gastroenteritis A08.4 [place] [id number] [place] [address] 38455- 9942 Feb, Head lice B85.0 [place] [id number] [place] [address] 33860- 5509 Feb, Medicare annual wellness visit, initial Z00.00 ; Head lice B85.0 ; Tinea corporis B35.4 and Enlarged lymph node R59.9 [place] [id number] [place] [address] 27764- 8448 Jan, Viral gastroenteritis A08.4 [facility] [id number] [place] [address] 77606- 1458 Jan, [facility] [address] 98554- 2257 Dec, Controlled type 2 diabetes mellitus without complication, without long-term current use of insulin E11.9 [place] [address] 02410- 6573 Dec, [place] [address] 39349- 0374 Dec, Viral gastroenteritis A08.4 [place] [address] 00410- 7924 Nov, Viral gastroenteritis A08.4 [place] [address] 12847- 7233 Oct, Acute upper respiratory infection, unspecified J06.9 and Other viral agents as the cause of diseases classified elsewhere B97.89 [place] [address] 96184- 8889 Oct, Viral gastroenteritis A08.4 [place] [address] 88062- 8689 Oct, Encounter for immunization Z23 ; Controlled type 2 diabetes mellitus without complication, without long-term current use of insulin E11.9 and Acute pain of left foot M79.672 [place] [address] 65009- 5748 Sep, Viral gastroenteritis A08.4 [place] [address] 02199- 3469 Aug, Viral gastroenteritis A08.4 [place] [id number] [place] [address] 42472- 3872 Jul, Viral gastroenteritis A08.4 [facility] [address] 13504 -2495 Jul, Acute nasopharyngitis (common cold) J00 [place] [address] 83950- 8210 Jun, Viral gastroenteritis A08.4 [place] [address] [address]- 4870 Jun, [place] [id number] [place] [address] 95496- 4517 Jun, Viral gastroenteritis A08.4 [place] [id number] [place] [address] 72850- 4444 May, Patellar tendinitis, left knee M76.52 [place] [id number] [place] [address] 82441- 0622 May, Viral gastroenteritis A08.4 [place] [id number] [place] [address] 89194- 4465 Apr, Viral gastroenteritis A08.4 and Hypothyroidism, unspecified E03.9 [place] [id number] [place] [address] 98070- 4787 15 Apr, 2017 Pain in left knee M25.562 ; Acute left-sided low back pain without sciatica M54.5 and Type 2 diabetes mellitus without complications E11.9 [place] [id number] [place] [address] 30154- 4630 Apr, Viral gastroenteritis A08.4 [place] [id number] [place] [address] 21146- 3056 March, Viral gastroenteritis A08.4 [facility] [address] [place] [address] 52329 -3325 Feb, Acute pain of left knee M25.562 [place] [address] [place] [address] 96206- 3697 Feb, Viral gastroenteritis A08.4 [place] [id number] [place] [address] 58778- 5819 16 Jan, 2017 Viral gastroenteritis A08.4 and Controlled type 2 diabetes mellitus without complication, without long-term current use of insulin E11.9 [place] [id number] [place] [address] 90104- 9606 Jan, [facility] [address] [address]- 8072 16 Dec, 2016 Other chronic pain G89.29 ; Pain in left knee M25.562 ; Controlled type 2 diabetes mellitus without complication, without long-term current use of insulin E11.9 and Acute cystitis with hematuria N30.01 [facility] [id number] [place] [address] 02951- 2165 Dec, [facility] [id number] [place] [address] 94529- 0344 Nov, Type 2 diabetes mellitus without complications E11.9 [facility] [id number] [place] [address] 13280- 9102 Nov, [facility] [id number] [place] [address] 67002- 9060 Oct, [facility] [id number] [place] [address] 19710- 2057 Sep, [facility] [id number] [place] [address] 89264- 7112 Aug, [facility] [id number] [place] [address] 05373- 2757 Aug, [facility] [id number] [place] [address] 78894- 7673 Jul, Controlled type 2 diabetes mellitus without complication, without long-term current use of insulin E11.9 ; Callus of foot L84 and URI, acute J06.9 [facility] [address] [place] [address] 58050- 3994 Jul, [facility] [id number] [place] [address] 56742- 6566 Jun, Onychomycosis B35.1 and Nail ingrowing L60.0 [place] [id number] [place] [address] 37404- 4887 Jun, [place] [address] [address]- 4690 Jun, Lumbar back pain with radiculopathy affecting left lower extremity M54.17 [facility] [address] [place] [address] 94710- 7613 Jun, [facility] [id number] [place] [address] 58865- 4669 Jun, Other chronic pain G89.29 [facility] [id number] [place] [address] 87591- 7479 Jun, Other chronic pain G89.29 [facility] [id number] [place] [address] 76826- 7389 Jun, Type 2 diabetes mellitus without complications E11.9 [place] [id number] [place] [address] 41143- 8857 Jun, [facility] [id number] [place] [address] 02397- 3513 Jun, Onychomycosis B35.1 ; Callus L84 and Rash R21 [place] [id number] [place] [address] 22779- 9596 May, [facility] [address] [place] [address] 80634- 5229 May, [facility] [address] [place] [address] 84120- 7347 May, Type 2 diabetes mellitus without complications E11.9 [facility] [address] [address]- 9053 May, [facility] [id number] [place] [address] 14453- 1339 Apr, [place] [address] [place] [address] 60390- 3857 Apr, Type 2 diabetes mellitus without complications E11.9 ; Acquired hypothyroidism E03.9 ; Callus of foot L84 and Upper respiratory tract infection, unspecified type J06.9 [facility] [address] [address]- 0175 March, [facility] [address] [place] [address] 66801- 5935 Feb, [facility] [id number] [address]- 8957 Jan, Diabetes mellitus without mention of complication, type II or unspecified type, not stated as uncontrolled 250.00 [facility] [address] [address]- 8745 28 Jan, 2016 [facility] [id number] [place] [address] 85556- 7917 16 Jan, 2016 Diabetes E11.9 and Hypothyroidism E03.9 [facility] [id number] [place] [address] 23805- 1054 Dec, Diarrhea R19.7 [facility] [address] [address]- 3920 Dec, [facility] [address] [place] [address] 14633- 1321 Dec, Hypothyroidism, unspecified E03.9 [facility] [address] [address]- 1646 Dec, [facility] [address] [address]- 2947 Dec, Hypothyroidism, unspecified E03.9 [facility] [address] [address]- 0864 04 Dec, 2015 Diarrhea R19.7 [facility] [address], [place] [address]- 2941 Dec, Diarrhea R19.7 [facility] [address] [address]- 7778 Nov, [facility] [address] [address]- 1414 Nov, [facility] [address] [address]- 4095 Oct, [facility] [address] 4892 Sep, Postnasal drip R09.82 [facility] [id number] [place] [address] 96582- 1818 Sep, [facility] [address] [place] [address] 46301- 4391 Sep, [facility] [id number] [place] [address] 50738- 6557 Aug, [facility] [address] [place] [address] 70436- 5843 Aug, [facility] [id number] [place] [address] 79246- 5577 Jul, Hypothyroidism 244.9 [facility] [address] [place] [address] 48073- 3738 Jul, Diabetes mellitus without mention of complication, type II or unspecified type, not stated as uncontrolled 250.00 [facility] [address] [address]- 4255 Jul, [facility] [address] [address]- 9305 Jul, [facility] [address] [address]- 8732 Jun, [facility] [id number] [place] [address] 71824- 3938 May, Other chronic pain 338.29 [facility] [address] [address]- 3678 May, Other chronic pain 338.29 [facility] [address] [address]- 0046 May, [facility] [address] [address]- 3221 May, [facility] [id number] [address]- 8531 Apr, Rash 782.1 ; Hypercholesterolemia 272.0 and Hypothyroidism 244.9 [facility] [id number] [place] [address] 79892- 1518 Apr, [facility] [id number] [place] [address], [place] [address]- 6720 Apr, [facility] [id number] [place] [address] 97076- 0692 March, [facility] [id number] [address]- 0725 Feb, [facility] [address] [address]- 2863 Feb, [facility] [address] [address]- 3514 Jan, [facility] [address] [address]- 3988 Jan, [facility] [address] [address]- 6084 Jan, [facility] [address] [address]- 5088 Jan, [facility] [id number] [address]- 1677 Jan, [facility] [address] [address]- 3737 Jan, [facility] [place] [facility] [address], [place] [address]- 9904 Jan, [facility] [id number] [address]- 4392 16 Dec, 2014 [facility] [place] [facility] [address] [id number] [place] [address] Dec, [facility] [place] [facility] [address] [id number] [place] [address]- 8298 Nov, [facility] [place] [facility] [address] [id number] [place] [address]- 0053 Nov, [facility] [place] [facility] [address] [id number] [place] [address]- 3466 Nov, [facility] [place] [facility] [address] [id number] [place] [address]- 9939 Nov, [facility] [place] [facility] [address] [id number] [place] [address]- 4388 Nov, [facility] [place] [facility] [address] [id number] [place] [address]- 1914 Nov, [facility] [place] [facility] [address] [id number] [place] [address]- 7525 Oct, [facility] [place] [facility] [address] [id number] [place] [address]- 9468 Oct, [facility] [place] [facility] [address] [id number] [place] [address]- 8292 Sep, [facility] [place] [facility] [address] [id number] [place] [address]- 3191 Sep, [facility] [place] [facility] [address] [id number] [place] [address]- 7118 Sep, [facility] [place] [facility] [address] [id number] [place] 5761 Sep, [facility] [place] [facility] [address] [id number] [place] [address]- 6561 Aug, [facility] [place] [facility] [address] [id number] [place] [address]- 7074 Aug, [facility] [place] [facility] [address] [id number] [place] [address]- 6421 Jul, [facility] [place] [facility] [address] [id number] [place] [address]- 7459 Jul, [facility] [place] [facility] [address] [id number] [place] [address]- 7585 Jun, [facility] [place] [facility] [address] [id number] [place] [address]- 2236 Jun, [facility] [place] [facility] [address] [id number] [place] [address]- 2168 Jun, [facility] [place] [facility] [address] [id number] [place] [address]- 3861 Jun, [facility] [place] [facility] [address] [id number] [place] [address]- 0136 May, [facility] [place] [facility] [address] [id number] [place] [address]- 4582 May, [facility] [place] [facility] [address] [id number] [place] [address]- 1159 May, [facility] [place] [facility] [address] [id number] [place] [address]- 2301 May, [facility] [place] [facility] [address] [id number] [place] [address]- 9281 Apr, [facility] [place] [facility] [address] [id number] [place] [address]- 6837 Apr, [facility] [place] [facility] [address] [id number] [place] [address]- 0056 March, [facility] [place] [facility] [address] [id number] [place] [address]- 3498 March, [facility] [place] [facility] [address] [id number] [place] [address]- 0155 March, [facility] [place] [facility] [address] [id number] [place] [address]- 1022 March, [facility] [place] [facility] [address] [id number] [place] [address]- 3884 March, [facility] [place] [facility] [address] [id number] [place] 6782 March, [facility] [place] [facility] [address] [id number] [place] [address]- 5432 Feb, [facility] [place] [facility] [address] [id number] [place] [address]- 3273 Feb, [facility] [place] [facility] [address] [id number] [place] [address]- 0270 Feb, [facility] [place] [facility] [address] [id number] [place] [address]- 4816 Feb, [facility] [place] [facility] [address] [id number] [place] [address]- 5838 Feb, [facility] [place] [facility] [address] [id number] [place] [address]- 4899 Feb, [facility] [place] [facility] [address] [id number] [place] [address]- 2767 Feb, [facility] [place] [facility] [address] [id number] [place] [address]- 1339 Feb, [facility] [place] [facility] [address] [id number] [place] [address]- 2446 Jan, [facility] [place] [facility] [address] [id number] [place] [address]- 9241 Jan, [facility] [place] [facility] [address] [id number] [place] [address]- 1562 Jan, [facility] [place] [facility] [address] [id number] [place] [address]- 8201 Jan, [facility] [place] [facility] [address] [id number] [place] [address]- 9595 Jan, [facility] [place] [facility] [address] [id number] [place] [address]- 6601 13 Jan, 2014 [facility] [place] [facility] [address] [id number] [place] [address]- 1632 Jan, [facility] [place] [facility] [address] [id number] [place] [address]- 2021 Jan, [facility] [place] [facility] [address] [id number] [place] [address]- 6217 Jan, [facility] [place] [facility] [address] [id number] [place] [address]- 4050 Dec, [facility] [place] [facility] [address] [id number] [place] [address]- 8678 Dec, [facility] [place] [facility] [address] [id number] [place] [address]- 0722 Nov, [facility] [place] [facility] [address] [id number] [place] [address]- 6024 Nov, [facility] [place] [facility] [address] [id number] [place] [address]- 9120 Nov, [facility] [place] [facility] [address] [id number] [place] [address]- 8804 Nov, [facility] [place] [facility] [address] [id number] [place] [address] Nov, [facility] [place] [facility] [address] [id number] [place] [address] Nov, [facility] [place] [facility] [address] [id number] [place] [address] Oct, [facility] [place] [facility] [address] [id number] [place] [address] Oct, [facility] [place] [facility] [address] [id number] [place] [address] Sep, [facility] [place] [facility] [address] [id number] [place] [address] Sep, [facility] [place] [facility] [address] [id number] [place] [address] Sep, [facility] [place] [facility] [address] [id number] [place] [address] Sep, [facility] [place] [facility] [address] [id number] [place] [address] Sep, [facility] [place] [facility] [address] [id number] [place] [address] Sep, [facility] [place] [facility] [address] [id number] [place] [address] Sep, [facility] [place] [facility] [address] [id number] [place] [address] Sep, [facility] [place] [facility] [address] [id number] [place] [address] Aug, [facility] [place] [facility] [address] [id number] [place] [address] Aug, [facility] [place] [facility] [address] [id number] [place] [address] Aug, [facility] [place] [facility] [address] [id number] [address] Jul, [facility] [place] [facility] [address] [id number], [place] [address] Jul, [facility] [place] [facility] [address] [id number], [place] [address] Jul, [facility] [place] [facility] [address] [id number] [place] [address] Jun, [facility] [place] [facility] [address] [id number] [place] [address] Jun, [facility] [place] [facility] [address] [id number] [place] [address] Jun, [facility] [place] [facility] [address] [id number] [place] [address] Jun, [facility] [address] [id number] [place] [address] Jun, [facility] [address] [id number] [place] [address] Jun, [facility] [address] [id number] [place] [address] May, [facility] [address] [id number] [place] [address] May, [facility] [address] [id number] [place] [address] Apr, [facility] [address] [id number] [place] [address] Apr, [facility] [address] [id number] [place] [address] March, [facility] [address] [id number] [place] [address] Feb, [facility] [address] [id number] [place] [address] Feb, [facility] [address] [address] [id number] [place] [address] Feb, [facility] [address] [id number] [place] [address] Feb, [facility] [address] [id number] [place] [address] Jan, [facility] [place] [facility] [address] [id number] [place] [address] Jan, [facility] [place] [facility] [address] [id number] [place] [address] Jan, [facility] [address] [id number] [place] [address] Jan, [facility] [address] [id number] [place] [address] Jan, [facility] [place] [facility] [address] [id number] [place] [address] Dec, [facility] [place] [facility] [address] [id number] [place] [address] Nov, [facility] [place] [facility] [address] [id number] [place] [address] Nov, [facility] [place] [facility] [address] [id number] [place] [address] Oct, [facility] [place] [facility] [address] [id number] [place] [address] Oct, [facility] [address] [id number] [place] [address] Oct, [facility] [place] [facility] [address] [id number] [place] [address] Oct, [facility] [place] [facility] [address] [id number] [place] [address] Oct, [facility] [place] [facility] [address] [id number] [place] [address] Oct, [facility] [place] [facility] [address] [id number] [place] [address] Oct, [facility] [place] [facility] [address] [id number] [place] [address] Oct, [facility] [place] [facility] [address] [id number] [place] [address] Aug, [facility] [place] [facility] [address] [id number] [place] [address] Aug, [facility] [place] [facility] [address] [id number] [place] [address] Aug, [facility] [place] [facility] [address] [id number] [place] [address] Aug, [facility] [place] [facility] [address] [id number] [place] [address] Aug, [facility] [place] [facility] [address] [id number] [place] [address] 19 Aug, 2012 [facility] [place] [facility] [address] [id number] [place] [address] 15 Aug, 2012 [facility] [place] [facility] [address] [id number] [place] [address]76 27 Jul, 2012 [facility] [place] [facility] [address] [id number] [place] [address] 27 Jul, 2012 [facility] [place] [facility] [address] [id number] [place] [address] 27 Jul, 2012 [facility] [place] [facility] [address] [id number] [place] [address] 27 Jul, 2012 [facility] [place] [facility] [address] [id number] [place] [address] 03 Jul, 2012 [facility] [place] [facility] [address] [id number] [place] [address] Jun, [facility] [place] [facility] [address] [id number] [place] [address] Jun, [facility] [place] [facility] [address] [id number] [place] [address] Jun, [facility] [place] [facility] [address] [id number] [place] [address] May, [facility] [place] [facility] [address] [id number] [place] [address] May, [facility] [place] [facility] [address] [id number] [place] [address] May, [facility] [place] [facility] [address] [id number] [place] [address] May, [facility] [place] [facility] [address] [id number] [place] [address] 23 May, 2012 [facility] [address] [id number] [place] [address] 17 May, 2012 [facility] [place] [facility] [address] [id number] [place] [address] May, [facility] [address] [id number] [place] [address] Apr, [facility] [place] [facility] [address] [id number] [place] [address] Apr, [facility] [address] [id number] [place] [address] March, [facility] [address] [id number] [place] [address] Feb, [facility] [address] [id number] [place] [address] 30 Jan, 2012 [facility] [address] [id number] [place] [address] Jan, [facility] [place] [facility] [address] [id number] [place] [address] Jan, [facility] [address] [id number] [place] [address] Jan, [facility] [place] [facility] [address] [id number] [place] [address] Jan, [facility] [place] [facility] [address] [id number] [place] [address] Jan, [facility] [place] [facility] [address] [id number] [place] [address] Jan, [facility] [place] [facility] [address] [id number] [place] [address]76 Jan, [facility] [place] [facility] [address] [id number] [place] [address] 70[address] Jan, [facility] [address] [id number] [place] [address] Jan, [facility] [place] [facility] [address] [id number] [place] [address]- [address]476 Dec, [facility] [place] [facility] [address] [id number] [place] [address]- 8738 Dec, [facility] [place] [facility] [address] [id number] [place] [address] Dec, [facility] [place] [facility] [address] [id number] [place] [address] Dec, [facility] [place] [facility] [address] [id number] [place] [address] 3725 Dec, [facility] [place] [facility] [address] [id number] [place] [address]- 6284 Dec, [facility] [place] [facility] [address] [id number] [place] [address]173 Dec, [facility] [place] [facility] [address] [id number] [place] [address] Dec, [facility] [place] [facility] [address] [id number] [place] [address]- 9971 Nov, [facility] [place] [facility] [address] [id number] [place] [address]- 4028 Nov, [facility] [place] [facility] [address] [id number] [place] [address] 6966 Nov, [facility] [place] [facility] [address] [id number] [place] [address] Oct, [facility] [place] [facility] [address] [id number] [place] [address] Oct, [facility] [place] [facility] [address] [id number] [place] [address]- 0896 Oct, [facility] [place] [facility] [address] [facility] [id number] [place] [address] Oct, [facility] [address] [facility] [id number] [place] [address] Sep, IMMUNIZATIONS No Known Immunizations SOCIAL HISTORY Never Assessed REASON FOR VISIT Controlled Med Refill 05/24/18 PLAN OF CARE VITAL SIGNS MEDICATIONS Medication Instructions Dosage Frequency Start Date End Date Duration Status Sanger 10-325 MG Orally every 6 hrs 1 [...]
--- OUTSIDE RECORDS SUMMARY | 2019-01-07 23:54 | XMS REPORT ---
Author Author NALINI GOMEZ Organization [facility] Address [address] [place] [address] Care Team Providers Care Cooler Servicer Name Role Phone NALINI GOMEZ Unavailable PROBLEMS Type Condition ICD9-CM Code KBO44-ZU Code Onset Dates Condition Status SNOMED Code Problem Other chronic pain G89.29 Active 97827215 Problem Acquired hypothyroidism E03.9 Active 540457088 Problem Hypothyroidism, unspecified E03.9 Active 75657000 Problem Panlobular emphysema J43.1 Active 9186814 Problem Hypercholesterolemia 272.0 Active 89299945 Problem Type 2 diabetes mellitus without complications E11.9 Active 754818678 Problem Controlled type 2 diabetes mellitus without complication, without long -term current use of insulin E11.9 Active 162262363 Problem Hypertension, benign I10 Active 90431694 Problem Stress incontinence of urine N39.3 Active 75134023 Problem Mixed hyperlipidemia E78.2 Active 548672664 Problem Hypothyroidism (acquired) E03.9 Active 71621783 Problem Urinary, incontinence, stress female N39.3 Active 66743079 Problem Episode of recurrent major depressive disorder, unspecified depression episode severity F33.9 Active 314779118 ALLERGIES No Information ENCOUNTERS Encounter Location Date Diagnosis [facility] [id number] [place] [address] 75443- 4243 Jun, Stress incontinence of urine N39.3 ; Controlled type 2 diabetes mellitus without complication, without long-term current use of insulin E11.9 and Hypertension, benign I10 [facility] [id number] [place] [address] 18244- 3777 Jun, [facility] [id number] [place] [address] 88721- 4499 Jun, [facility] [id number] [place] [address] 20763- 9189 May, [facility] [address] 28594- 1673 May, Viral gastroenteritis A08.4 [facility] [place] [address] 82191- 2414 May, Acute diffuse otitis externa of left ear H60.312 and Acquired hypothyroidism E03.9 [facility] [place] [address] 78908- 9169 May, Episode of recurrent major depressive disorder, unspecified depression episode severity F33.9 ; Urinary, incontinence, stress female N39.3 ; Mixed hyperlipidemia E78.2 and Hypothyroidism (acquired) E03.9 [facility] [place] [address] 93808- 1871 May, [facility] [place] [address] 52000- 3663 May, Viral gastroenteritis A08.4 [facility] [address] 82432- 2570 Apr, Acute diffuse otitis externa of left ear H60.312 and Hypothyroidism (acquired) E03.9 [facility] [place] [address] 73900- 6280 Apr, Viral gastroenteritis A08.4 and Acquired hypothyroidism E03.9 [facility] [place] [address] 73622- 2147 Apr, Type 2 diabetes mellitus without complications E11.9 and Panlobular emphysema J43.1 [facility] [place] [address] 69792- 7527 Apr, Viral gastroenteritis A08.4 [facility] [place] [address] 12885- 7315 March, [facility] [address] 73826- 9962 March, Viral gastroenteritis A08.4 [facility] [place] [address] [place] [address]- 0964 Feb, Panlobular emphysema J43.1 [facility] [place] [address] 76480- 1854 Feb, Panlobular emphysema J43.1 [facility] [place] [address] 93021- 3173 Feb, [facility] [address] 90952- 1151 Feb, [facility] [address] 03154- 7722 Feb, Viral gastroenteritis A08.4 [facility] [place] [address] 68966- 6753 Feb, Head lice B85.0 [facility] [place] [address] 05959- 3689 Feb, Medicare annual wellness visit, initial Z00.00 ; Head lice B85.0 ; Tinea corporis B35.4 and Enlarged lymph node R59.9 [facility] [place] [address] 33063- 9376 Jan, Viral gastroenteritis A08.4 [facility] [id number] [place] [address] 98443- 2326 Jan, [facility] [id number] [place] [address] 04140- 8481 Dec, Controlled type 2 diabetes mellitus without complication, without long-term current use of insulin E11.9 [facility] [address] 74869- 2990 Dec, [facility] [address] 77032- 3891 Dec, Viral gastroenteritis A08.4 [facility] [place] [address] 64599- 2103 Nov, Viral gastroenteritis A08.4 [facility] [id number] [place] [address] 03175- 5637 Oct, Acute upper respiratory infection, unspecified J06.9 and Other viral agents as the cause of diseases classified elsewhere B97.89 [facility] [place] [id number] [place] [address] 81641- 6113 Oct, Viral gastroenteritis A08.4 [facility] [place] [address] 37252- 1619 Oct, Encounter for immunization Z23 ; Controlled type 2 diabetes mellitus without complication, without long-term current use of insulin E11.9 and Acute pain of left foot M79.672 [facility] [place] [address] 00427- 1124 Sep, Viral gastroenteritis A08.4 [facility] [place] [address] 11112- 7787 Aug, Viral gastroenteritis A08.4 [facility] [place] [id number] [place] [address] 68090- 0769 Jul, Viral gastroenteritis A08.4 [facility] [id number] [place] [address] 04035 -7228 Jul, Acute nasopharyngitis (common cold) J00 [facility] [place] [id number] [place] [address] 36827- 4080 Jun, Viral gastroenteritis A08.4 [facility] [place] [id number] [place] [address] 68251- 4178 Jun, [facility] [address] 79089- 7275 Jun, Viral gastroenteritis A08.4 [facility] [place] [id number] [place] [address] 62013- 4198 May, Patellar tendinitis, left knee M76.52 [facility] [place] [address] 97236- 8343 05 May, 2017 Viral gastroenteritis A08.4 [facility] [place] [id number] [place] [address] 66432- 2311 16 Apr, 2017 Viral gastroenteritis A08.4 and Hypothyroidism, unspecified E03.9 [facility] [place] [id number] [place] [address] 66699- 4765 15 Apr, 2017 Pain in left knee M25.562 ; Acute left-sided low back pain without sciatica M54.5 and Type 2 diabetes mellitus without complications E11.9 [facility] [place] [id number] [place] [address] 09180- 8343 07 Apr, 2017 Viral gastroenteritis A08.4 [facility] [place] [id number] [place] [address] 97508- 4475 10 Mar, 2017 Viral gastroenteritis A08.4 [facility] [id number] [place] [address] 37086 -9154 27 Feb, 2017 Acute pain of left knee M25.562 [facility] [place] [id number] [place] [address] 12911- 2211 13 Feb, 2017 Viral gastroenteritis A08.4 [facility] [place] [id number] [place] [address] 36647- 4891 16 Jan, 2017 Viral gastroenteritis A08.4 and Controlled type 2 diabetes mellitus without complication, without long-term current use of insulin E11.9 [facility] [place] [id number] [place] [address] 02143- 1598 14 Jan, 2017 [facility] [place] [id number] [place] [address] 85795- 0447 16 Dec, 2016 Other chronic pain G89.29 ; Pain in left knee M25.562 ; Controlled type 2 diabetes mellitus without complication, without long-term current use of insulin E11.9 and Acute cystitis with hematuria N30.01 [facility] [id number] [place] [address] 15283- 7629 Dec, [facility] [place] [address] [address]- 6279 Nov, Type 2 diabetes mellitus without complications E11.9 [facility] [id number] [place] [address] 00699- 2914 Nov, [facility] [id number] [place] [address] 94451- 9059 Oct, [facility] [id number] [place] [address] 82604- 5068 Sep, [facility] [id number] [place] [address] 72103- 8288 Aug, [facility] [id number] [place] [address] 34616- 7734 Aug, [facility] [place] [id number] [place] [address] 92147- 4515 Jul, Controlled type 2 diabetes mellitus without complication, without long-term current use of insulin E11.9 ; Callus of foot L84 and URI, acute J06.9 [facility] [place] [id number] [place] [address] 38170- 4658 Jul, [facility] [place] [id number] [place] [address] 59910- 1270 Jun, Onychomycosis B35.1 and Nail ingrowing L60.0 [facility] [place] [id number] [place] [address] 05661- 0940 Jun, [facility] [address] [place] [address] 99886- 6866 Jun, Lumbar back pain with radiculopathy affecting left lower extremity M54.17 [facility] [place] [id number] [place] [address] 58188- 7750 Jun, [facility] [id number] [place] [address] 41466- 4913 Jun, Other chronic pain G89.29 [facility] [address] [address]- 9429 Jun, Other chronic pain G89.29 [facility] [id number] [place] [address] 53909- 4247 Jun, Type 2 diabetes mellitus without complications E11.9 [facility] [address] [place] [address] 97399- 2359 Jun, [facility] [id number] [place] [address] 08557- 0407 Jun, Onychomycosis B35.1 ; Callus L84 and Rash R21 [facility] [id number] [place] [address] 64372- 9477 May, [facility] [id number] [place] [address] 96782- 8189 May, [facility] [place] [id number] [place] [address] 28764- 0414 May, Type 2 diabetes mellitus without complications E11.9 [facility] [place] [address] [address]- 2420 May, [facility] [place] [address] [place] [address] 30567- 1804 Apr, [facility] [address] [address]- 8991 Apr, Type 2 diabetes mellitus without complications E11.9 ; Acquired hypothyroidism E03.9 ; Callus of foot L84 and Upper respiratory tract infection, unspecified type J06.9 [facility] [address] [address]- 7957 March, [facility] [address] [place] [address] 81733- 1969 Feb, [facility] [address] [address]- 7414 Jan, Diabetes mellitus without mention of complication, type II or unspecified type, not stated as uncontrolled 250.00 [facility] [address] [place] [address] 45196- 7648 Jan, [facility] [id number] [place] [address] 01413- 2641 Jan, Diabetes E11.9 and Hypothyroidism E03.9 [facility] [id number] [place] [address] 28236- 7576 Dec, Diarrhea R19.7 [facility] [id number] [place] [address] 01969- 2541 Dec, [facility] [id number] [place] [address] 51990- 1697 Dec, Hypothyroidism, unspecified E03.9 [facility] [id number] [place] [address] 72348- 5926 Dec, [facility] [id number] [place] [address] 01491- 1121 Dec, Hypothyroidism, unspecified E03.9 [facility] [id number] [place] [address] 52831- 3472 Dec, Diarrhea R19.7 [facility] [id number] [place] [address] 26313- 3668 Dec, Diarrhea R19.7 [facility] [address] [place] [address] 58513- 5463 Nov, [facility] [address] [place] [address] 53338- 5124 Nov, [facility] [id number] [place] [address] 29319- 9446 Oct, [facility] [address] [place] [address] 15496- 1970 Sep, Postnasal drip R09.82 [facility] [id number] [place] [address] 71633- 2546 Sep, [facility] [address] [place] [address] 33298- 5291 Sep, [facility] [id number] [place] [address] 80151- 5206 Aug, [facility] [id number] [place] [address] 65387- 2244 Aug, [facility] [id number] [place] [address] 54426- 3113 Jul, Hypothyroidism 244.9 [facility] [id number] [place] [address] 33367- 4496 Jul, Diabetes mellitus without mention of complication, type II or unspecified type, not stated as uncontrolled 250.00 [facility] [id number] [place] [address] 991831- 2825 Jul, [facility] [id number] [place] [address] 59807- 9460 Jul, [facility] [id number] [place] [address] 92868- 3157 Jun, [facility] [id number] [place] [address] 62239- 8401 May, Other chronic pain 338.29 [facility] [id number] [place] [address] 35403- 5552 May, Other chronic pain 338.29 [facility] [id number] [place] [address] 09191- 4880 May, [facility] [id number] [place] [address] 78373- 5769 May, [facility] [id number] [place] [address] 94592- 8665 Apr, Rash 782.1 ; Hypercholesterolemia 272.0 and Hypothyroidism 244.9 [facility] [id number] [place] [address] 47021- 7750 Apr, [facility] [place] [facility] [address] [id number] [place] [address]- 1435 Apr, [facility] [place] [facility] [address] [id number] [place] [address]- 9419 March, [facility] [place] [facility] [address] [id number] [place] [address]- 2853 Feb, [facility] [place] [facility] [address] [id number] [place] [address]- 9787 Feb, [facility] [place] [facility] [address] [id number] [place] [address]- 8233 Jan, [facility] [place] [facility] [address] [id number] [place] [address]- 8140 Jan, [facility] [place] [facility] [address] [id number] [place] [address]- 0009 Jan, [facility] [place] [facility] [address] [id number] [place] [address]- 2270 Jan, [facility] [place] [facility] [address] [id number] [place] [address]- 3155 Jan, [facility] [place] [facility] [address] [id number] [place] [address]- 0653 Jan, [facility] [place] [facility] [address] [id number] [place] [address]- 1305 Jan, [facility] [place] [facility] [address] [id number] [place] [address]- 6423 Dec, [facility] [place] [facility] [address] [id number] [place] [address]- 1422 Dec, [facility] [place] [facility] [address] [id number] [place] [address]- 1125 Nov, [facility] [place] [facility] [address] [id number] [place] 7824 Nov, [facility] [place] [facility] [address] [id number] [place] [address]- 5938 Nov, [facility] [place] [facility] [address] [id number] [place] [address]- 1082 Nov, [facility] [place] [facility] [address] [id number] [place] [address]- 7057 Nov, [facility] [place] [facility] [address] [id number] [place] [address]- 5134 Nov, [facility] [place] [facility] [address] [id number] [place] [address]- 6333 Oct, [facility] [place] [facility] [address] [id number] [place] [address]- 0595 Oct, [facility] [place] [facility] [address] [id number] [place] [address]- 1416 Sep, [facility] [place] [facility] [address] [id number] [place] [address]- 8275 Sep, [facility] [place] [facility] [address] [id number] [place] [address]- 5465 Sep, [facility] [place] [facility] [address] [id number] [place] [address]- 6154 Sep, [facility] [place] [facility] [address] [id number] [place] [address]- 4380 Aug, [facility] [place] [facility] [address] [id number] [place] [address]- 0738 Aug, [facility] [place] [facility] [address] [id number] [place] [address]- 6650 Jul, [facility] [place] [facility] [address] [id number] [place] [address]- 2565 Jul, [facility] [place] [facility] [address] [id number] [place] [address]- 8983 Jun, [facility] [place] [facility] [address] [id number] [place] [address]- 2126 Jun, [facility] [place] [facility] [address] [id number] [place] [address]- 8017 Jun, [facility] [place] [facility] [address] [id number] [place] [address]- 1565 Jun, [facility] [place] [facility] [address] [id number] [place] [address]- 6807 May, [facility] [place] [facility] [address] [id number] [place] [address]- 3302 May, [facility] [place] [facility] [address] [id number] [place] [address]- 4328 May, [facility] [place] [facility] [address] [id number] [place] [address]- 9887 May, [facility] [place] [facility] [address] [id number] [place] [address]- 3286 Apr, [facility] [place] [facility] [address] [id number] [place] [address]- 2528 Apr, [facility] [place] [facility] [address] [id number] [place] [address]- 3154 March, [facility] [place] [facility] [address] [id number] [place] [address]- 0467 March, [facility] [place] [facility] [address] [id number] [place] [address]- 5774 March, [facility] [place] [facility] [address] [id number] [place] [address]- 9386 March, [facility] [place] [facility] [address] [id number] [place] [address]- 5251 March, [facility] [place] [facility] [address] [id number] [place] 3416 March, [facility] [place] [facility] [address] [id number] [place] [address]- 1217 Feb, [facility] [place] [facility] [address] [id number] [place] [address]- 2960 Feb, [facility] [place] [facility] [address] [id number] [place] [address]- 3676 Feb, [facility] [place] [facility] [address] [id number] [place] [address]- 4273 Feb, [facility] [place] [facility] [address] [id number] [place] [address]- 5795 Feb, [facility] [place] [facility] [address] [id number] [place] [address]- 7741 Feb, [facility] [place] [facility] [address] [id number] [place] [address]- 0190 Feb, [facility] [place] [facility] [address] [id number] [place] [address]- 4402 Feb, [facility] [place] [facility] [address] [id number] [place] [address]- 5267 Jan, [facility] [place] [facility] [address] [id number] [place] [address]- 6536 Jan, [facility] [place] [facility] [address] [id number] [place] [address]- 5793 Jan, [facility] [place] [facility] [address] [id number] [place] [address]- 7937 Jan, [facility] [place] [facility] [address] [id number] [place] [address]- 9773 Jan, [facility] [place] [facility] [address] [id number] [place] [address]- 9005 Jan, [facility] [place] [facility] [address] [id number] [place] [address]- 6931 Jan, [facility] [place] [facility] [address] [id number] [place] [address]- 2614 10 Jan, 2014 [facility] [place] [facility] [address] [id number] [place] [address]- 6732 Jan, [facility] [place] [facility] [address] [id number] [place] [address]- 1507 Dec, [facility] [place] [facility] [address] [id number] [place] [address]- 7628 Dec, [facility] [place] [facility] [address] [id number] [place] [address]- 5695 Nov, [facility] [place] [facility] [address] [id number] [place] [address]- 6005 Nov, [facility] [place] [facility] [address] [id number] [place] [address]- 8254 Nov, [facility] [place] [facility] [address] [id number] [place] [address]- 1010 Nov, [facility] [place] [facility] [address] [id number] [place] [address]- 5758 Nov, [facility] [place] [facility] [address] [id number] [place] [address]- 0582 Nov, [facility] [place] [facility] [address] [id number] [place] [address]- 9720 Oct, [facility] [place] [facility] [address] [id number] [place] [address]- 6154 Oct, [facility] [place] [facility] [address] [id number] [place] [address]- 0503 Sep, [facility] [place] [facility] [address] [id number] [place] [address]- 3075 Sep, [facility] [place] [facility] [address] [id number] [place] [address]- 6708 Sep, [facility] [place] [facility] [address] [id number] [place] [address]- 1908 Sep, [facility] [place] [facility] [address] [id number] [place] [address]- 3651 Sep, [facility] [place] [facility] [address] [id number] [place] [address] Sep, [facility] [place] [facility] [address] [id number] [place] [address] Sep, [facility] [place] [facility] [address] [id number] [place] [address] Sep, [facility] [place] [facility] [address] [id number] [place] [address] Aug, [facility] [place] [facility] [address] [id number] [place] [address] Aug, [facility] [place] [facility] [address] [id number] [place] [address] Aug, [facility] [place] [facility] [address] [id number] [place] [address] Jul, [facility] [place] [facility] [address] [id number] [place] [address] Jul, [facility] [place] [facility] [address] [id number] [place] [address] Jul, [facility] [place] [facility] [address] [id number] [place] [address] Jun, [facility] [place] [facility] [address] [id number] [place] [address] Jun, [facility] [place] [facility] [address] [id number] [place] [address] Jun, [facility] [place] [facility] [address] [id number] [place] [address] Jun, [facility] [place] [facility] [address] [id number] [place] [address] Jun, [facility] [place] [facility] [address] [id number] [place] [address] Jun, [facility] [place] [facility] [address] [id number] [place] [address] May, [facility] [place] [facility] [address] [id number] [place] [address] May, [facility] [address] [id number] [place] [address] Apr, [facility] [address] [id number] [place] [address] Apr, [facility] [address] [id number] [place] [address] March, [facility] [address] [id number] [place] [address] Feb, [facility] [address] [id number] [place] [address] Feb, [facility] [address] [id number] [place] [address] Feb, [facility] [address] [id number] [place] [address] Feb, [facility] [address] [id number] [place] [address] Jan, [facility] [address] [id number] [place] [address] Jan, [facility] [address] [id number] [place] [address] Jan, [facility] [address] [id number] [place] [address] Jan, [facility] [address] [id number] [place] [address] Jan, [facility] [address] [id number] [place] [address] Dec, [facility] [address] [id number] [place] [address] Nov, [facility] [address] [id number] [place] [address] Nov, [facility] [place] [facility] [address] [id number] [place] [address] Oct, [facility] [place] [facility] [address] [id number] [place] [address] Oct, [facility] [place] [facility] [address] [id number] [place] [address] Oct, [facility] [place] [facility] [address] [id number] [place] [address] Oct, [facility] [place] [facility] [address] [id number] [place] [address] Oct, [facility] [place] [facility] [address] [id number] [place] [address] Oct, [facility] [place] [facility] [address] [id number] [place] [address] Oct, [facility] [place] [facility] [address] [id number] [place] [address] Oct, [facility] [place] [facility] [address] [id number] [place] [address] Aug, [facility] [place] [facility] [address] [id number], [place] [address] Aug, [facility] [place] [facility] [address] [id number], [place] [address] Aug, [facility] [place] [facility] [address] [id number], [place] [address] Aug, [facility] [place] [facility] [address] [id number] [place] [address] Aug, [facility] [place] [facility] [address] [id number] [place] [address] Aug, [facility] [place] [facility] [address] [id number], [place] [address] Aug, [facility] [place] [facility] [address] [id number] [place] [address] 27 Jul, 2012 [facility] [place] [facility] [address] [id number] [place] [address] 27 Jul, 2012 [facility] [place] [facility] [address] [id number] [place] [address] Jul, [facility] [place] [facility] [address] [id number] [place] [address] Jul, [facility] [place] [facility] [address] [id number] [place] [address] Jul, [facility] [place] [facility] [address] [id number] [place] [address] Jun, [facility] [place] [facility] [address] [id number] [place] [address] Jun, [facility] [place] [facility] [address] [id number] [place] [address]- [address] Jun, [facility] [place] [facility] [address] [id number] [place] [address] May, [facility] [place] [facility] [address] [id number] [place] [address] May, [facility] [place] [facility] [address] [id number] [place] [address]- [address] May, [facility] [place] [facility] [address] [id number] [place] [address]- [address] May, [facility] [place] [facility] [address] [id number] [place] [address]- [address] May, [facility] [place] [facility] [address] [id number] [place] [address]- [address] May, [facility] [place] [facility] [address] [id number] [place] [address]- [address] May, [facility] [place] [facility] [address] [id number] [place] [address] Apr, [facility] [place] [facility] [address] [id number] [place] [address] Apr, [facility] [place] [facility] [address] [id number] [place] [address] March, [facility] [place] [facility] [address] [id number] [place] [address] Feb, [facility] [place] [facility] [address] [id number] [place] [address] 30 Jan, 2012 [facility] [place] [facility] [address] [id number] [place] [address]- [address] Jan, [facility] [place] [facility] [address] [id number] [place] [address] Jan, [facility] [place] [facility] [address] [id number] [place] [address] Jan, [facility] [place] [facility] [address] [id number] [place] [address] Jan, [facility] [place] [facility] [address] [id number] [place] [address] Jan, [facility] [place] [facility] [address] [id number] [place] [address] Jan, [facility] [place] [facility] [address] [id number] [place] [address] Jan, [facility] [place] [facility] [address] [id number] [place] [address]- [address] Jan, [facility] [place] [facility] [address] [id number] [place] [address]- [address] Jan, [facility] [place] [facility] [address] [id number] [place] [address]- [address] Dec, [facility] [place] [facility] [address] [id number] [place] [address]- [address] Dec, [facility] [place] [facility] [address] [id number], [place] [address] Dec, [facility] [id number] [address] Dec, [facility] [id number], [place] [address] Dec, [facility] [id number], [place] [address] Dec, [facility] [id number], [place] [address] Dec, [facility] [id number] [place] [address] Dec, [facility] [id number], [place] [address] Nov, [facility] [id number] [place] [address] Nov, [facility] [id number], [place] [address] Nov, [facility] [id number] [address] Oct, [facility] [id number], [place] [address] Oct, [facility] [id number], [place] [address] Oct, [facility] [id number], [place] [address] Oct, [facility] [address] [id number], [place] [address] Sep, IMMUNIZATIONS No Known Immunizations SOCIAL HISTORY Never Assessed REASON FOR VISIT Lab results PLAN OF CARE VITAL SIGNS MEDICATIONS Medication Instructions Dosage Frequency Start Date End Date Duration Status Levothyroxine Sodium 150 MCG Orally Once a day 1 tablet on an empty stomach in the morning 24h Active Fish Oil 1000 MG Orally Twice a day 2 capsules 12h Apr, Active RESULTS No Results PROCEDURES No Known [...] lens prosthesis Hospitalization History admitted to [facility] for bronchitis then went into cardiac arrest and was resuscitated. She was in the hospital for 7 days. 2012 Hospitalization History surgeries
--- OUTSIDE RECORDS SUMMARY | 2019-01-07 23:54 | XMS REPORT ---
Author Author NALINI GOMEZ Organization [facility] Address [address] [place] [address] Care Team Providers Care Waredresser Name Role Phone NALINI GOMEZ Unavailable PROBLEMS Type Condition ICD9-CM Code AFT55-ZY Code Onset Dates Condition Status SNOMED Code Problem Other chronic pain G89.29 Active 88262960 Problem Acquired hypothyroidism E03.9 Active 786648607 Problem Hypothyroidism, unspecified E03.9 Active 98078332 Problem Panlobular emphysema J43.1 Active 7924106 Problem Hypercholesterolemia 272.0 Active 35563185 Problem Type 2 diabetes mellitus without complications E11.9 Active 129873574 Problem Controlled type 2 diabetes mellitus without complication, without long -term current use of insulin E11.9 Active 869048641 Problem Hypertension, benign I10 Active 70954267 Problem Stress incontinence of urine N39.3 Active 10625871 Problem Mixed hyperlipidemia E78.2 Active 803467581 Problem Hypothyroidism (acquired) E03.9 Active 19577795 Problem Urinary, incontinence, stress female N39.3 Active 33970668 Problem Episode of recurrent major depressive disorder, unspecified depression episode severity F33.9 Active 468008129 ALLERGIES Substance Reaction Event Type Date Status Rocephin Unknown Drug Allergy Apr, Active Penicillin V Potassium Unknown Drug Allergy Apr, Active Nsaids (non-steroidal Anti-inflammatory Drug) renal insuffiency Non Drug Allergy Apr, Active ENCOUNTERS Encounter Location Date Diagnosis [facility] [address] [facility] [id number] [address] Jun, Stress incontinence of urine N39.3 ; Controlled type 2 diabetes mellitus without complication, without long-term current use of insulin E11.9 and Hypertension, benign I10 [facility] [address] [facility] [id number] [address] Jun, [facility] [id number] [place] [address] 39109- 5774 Jun, [facility] [id number] [place] [address] 25306- 9336 May, [place] [id number] [place] [address] 52287- 0575 May, Viral gastroenteritis A08.4 [place] [id number] [place] [address] 60390- 4810 May, Acute diffuse otitis externa of left ear H60.312 and Acquired hypothyroidism E03.9 [place] [id number] [place] [address] 54313- 4379 May, Episode of recurrent major depressive disorder, unspecified depression episode severity F33.9 ; Urinary, incontinence, stress female N39.3 ; Mixed hyperlipidemia E78.2 and Hypothyroidism (acquired) E03.9 [place] [id number] [place] [address] 55200- 5485 May, [place] [id number] [place] [address] 33937- 2451 May, Viral gastroenteritis A08.4 [place] [id number] [place] [address] 67141- 2810 Apr, Acute diffuse otitis externa of left ear H60.312 and Hypothyroidism (acquired) E03.9 [place] [id number] [place] [address] 08892- 2190 Apr, Viral gastroenteritis A08.4 and Acquired hypothyroidism E03.9 [place] [id number] [place] [address] 84696- 1448 Apr, Type 2 diabetes mellitus without complications E11.9 and Panlobular emphysema J43.1 [place] [id number] [place] [address] 34170- 6903 Apr, Viral gastroenteritis A08.4 [place] [id number] [place] [address] 42989- 8363 March, [facility] [address] [address] 58[address] March, Viral gastroenteritis A08.4 [facility] [id number] [place] [address] 81540- 3608 Feb, Panlobular emphysema J43.1 [facility] [id number] [place] [address] 81865- 4632 Feb, Panlobular emphysema J43.1 [place] [id number] [place] [address] 58449- 5884 Feb, [place] [id number] [place] [address] 84659- 3691 Feb, [place] [id number] [place] [address] 94465- 3443 Feb, Viral gastroenteritis A08.4 [place] [id number] [place] [address] 33145- 7857 Feb, Head lice B85.0 [place] [id number] [place] [address] 61684- 3738 Feb, Medicare annual wellness visit, initial Z00.00 ; Head lice B85.0 ; Tinea corporis B35.4 and Enlarged lymph node R59.9 [place] [id number] [place] [address] 06307- 7672 Jan, Viral gastroenteritis A08.4 [place] [id number] [place] [address] 94656- 0030 Jan, [place] [id number] [place] [address] 08837- 1732 Dec, Controlled type 2 diabetes mellitus without complication, without long-term current use of insulin E11.9 [place] [id number] [place] [address] 09109- 6073 Dec, [place] [id number] [place] [address] 40152- 9574 Dec, Viral gastroenteritis A08.4 [place] [id number] [place] [address] 52395- 1755 Nov, Viral gastroenteritis A08.4 [place] [id number] [place] [address] 87642- 7774 Oct, Acute upper respiratory infection, unspecified J06.9 and Other viral agents as the cause of diseases classified elsewhere B97.89 [place] [id number] [place] [address] 01648- 0404 Oct, Viral gastroenteritis A08.4 [place] [id number] [place] [address] 62058- 1522 Oct, Controlled type 2 diabetes mellitus without complication, without long-term current use of insulin E11.9 ; Encounter for immunization Z23 and Acute pain of left foot M79.672 [place] [id number] [place] [address] 50400- 3073 Sep, Viral gastroenteritis A08.4 [place] [id number] [place] [address] 65215- 7253 Aug, Viral gastroenteritis A08.4 [place] [id number] [place] [address] 35915- 8481 Jul, Viral gastroenteritis A08.4 [facility] [id number] [place] [address] 50606 -8646 Jul, Acute nasopharyngitis (common cold) J00 [place] [id number] [place] [address] 77803- 4527 Jun, Viral gastroenteritis A08.4 [place] [id number] [place] [address] 73177- 2885 Jun, [place] [id number] [place] [address] 43732- 5080 Jun, Viral gastroenteritis A08.4 [place] [id number] [place] [address] 26272- 4042 May, Patellar tendinitis, left knee M76.52 [place] [address] 96516- 0597 05 May, 2017 Viral gastroenteritis A08.4 [place] [id number] [place] [address] 64736- 2803 16 Apr, 2017 Viral gastroenteritis A08.4 and Hypothyroidism, unspecified E03.9 [place] [id number] [place] [address] 95876- 1133 15 Apr, 2017 Pain in left knee M25.562 ; Acute left-sided low back pain without sciatica M54.5 and Type 2 diabetes mellitus without complications E11.9 [place] [id number] [place] [address] 24247- 1437 07 Apr, 2017 Viral gastroenteritis A08.4 [place] [id number] [place] [address] 38774- 7005 March, Viral gastroenteritis A08.4 [facility] [id number] [place] [address] 69196 -5887 Feb, Acute pain of left knee M25.562 [place] [id number] [place] [address] 08496- 5393 Feb, Viral gastroenteritis A08.4 [place] [id number] [place] [address] 50751- 4776 Jan, Viral gastroenteritis A08.4 and Controlled type 2 diabetes mellitus without complication, without long-term current use of insulin E11.9 [place] [id number] [place] [address] 28272- 8178 14 Jan, 2017 [place] [id number] [place] [address] 59959- 1427 16 Dec, 2016 Other chronic pain G89.29 ; Pain in left knee M25.562 ; Controlled type 2 diabetes mellitus without complication, without long-term current use of insulin E11.9 and Acute cystitis with hematuria N30.01 [place] [id number] [place] [address] 83091- 5050 Dec, [facility] [id number] [place] [address] 10744- 7816 Nov, Type 2 diabetes mellitus without complications E11.9 [place] [id number] [place] [address] 07651- 0551 Nov, [facility] [id number] [place] [address] 57879- 1388 Oct, [place] [address] 86824- 7023 Sep, [place] [id number] [place] [address] 72219- 6264 Aug, [place] [address] 88075- 1705 Aug, [place] [id number] [place] [address] 39324- 0950 Jul, Controlled type 2 diabetes mellitus without complication, without long-term current use of insulin E11.9 ; Callus of foot L84 and URI, acute J06.9 [place] [id number] [place] [address] 10373- 5565 Jul, [place] [id number] [place] [address] 90460- 1361 Jun, Onychomycosis B35.1 and Nail ingrowing L60.0 [place] [id number] [place] [address] 88724- 3486 Jun, [place] [id number] [place] [address] 61303- 6368 Jun, Lumbar back pain with radiculopathy affecting left lower extremity M54.17 [place] [id number] [place] [address] 19519- 1491 Jun, [facility] [address] [address]- 0789 Jun, Other chronic pain G89.29 [facility] [address] [address]- 1004 Jun, Other chronic pain G89.29 [facility] [address] [address]- 6584 Jun, Type 2 diabetes mellitus without complications E11.9 [facility] [address] [address]- 5276 Jun, [facility] [id number] [place] [address] 51064- 5476 Jun, Onychomycosis B35.1 ; Callus L84 and Rash R21 [facility] [address] [address]- 5266 May, [facility] [id number] [address]- 9942 May, [facility] [id number] [place] [address] 01773- 5638 May, Type 2 diabetes mellitus without complications E11.9 [facility] [address] [address]- 8155 May, [facility] [address] [address]- 9069 Apr, [facility] [address] [address]- 2740 Apr, Type 2 diabetes mellitus without complications E11.9 ; Acquired hypothyroidism E03.9 ; Callus of foot L84 and Upper respiratory tract infection, unspecified type J06.9 [facility] [address] [address]- 8406 March, [facility] [address] [address]- 9421 Feb, [facility] [address] [address]- 0680 Jan, Diabetes mellitus without mention of complication, type II or unspecified type, not stated as uncontrolled 250.00 [facility] [address] [address]- 6611 Jan, [facility] [id number] [place] [address] 16485- 6720 Jan, Diabetes E11.9 and Hypothyroidism E03.9 [facility] [id number] [place] [address] 72516- 4767 Dec, Diarrhea R19.7 [facility] [id number] [place] [address] 61305- 0037 Dec, [facility] [id number] [place] [address] 78454- 3366 Dec, Hypothyroidism, unspecified E03.9 [facility] [id number] [place] [address] 07007- 7060 Dec, [facility] [id number] [place] [address] 95885- 2611 Dec, Hypothyroidism, unspecified E03.9 [facility] [address] [address]- 5726 Dec, Diarrhea R19.7 [facility] [id number] [place] [address] 75940- 3716 Dec, Diarrhea R19.7 [facility] [id number] [address]- 1198 Nov, [facility] [id number] [place] [address] 732717- 3941 Nov, [facility] [address] [address]- 7607 Oct, [facility] [id number] [address]- 0300 Sep, Postnasal drip R09.82 [facility] [address] [address]- 4239 Sep, [facility] [address] [address]- 8086 Sep, [facility] [id number] [place] [address] 50646- 0804 Aug, [facility] [id number] [place] [address] 98110- 5691 Aug, [facility] [id number] [place] [address] 73209- 5143 Jul, Hypothyroidism 244.9 [facility] [id number] [place] [address] 17966- 2708 Jul, Diabetes mellitus without mention of complication, type II or unspecified type, not stated as uncontrolled 250.00 [facility] [address] [address]- 0055 Jul, [facility] [id number] [place] [address] 06104- 9003 Jul, [facility] [address] [address]- 1829 Jun, [facility] [id number] [place] [address] 96853- 6645 May, Other chronic pain 338.29 [facility] [id number] [place] [address] 34604- 1116 10 May, 2015 Other chronic pain 338.29 [facility] [address] 1256 09 May, 2015 [facility] [address] 7716 May, [facility] [id number] [place] [address] 68211- 1671 Apr, Rash 782.1 ; Hypercholesterolemia 272.0 and Hypothyroidism 244.9 [facility] [id number] [place] [address]- 3936 Apr, [facility] [id number] [address]- 8959 Apr, [facility] [id number] [place] [address] 12051- 6634 March, [facility] [id number] [address]- 1528 Feb, [facility] [id number] [place] [address], [place] [address]- 3945 Feb, [facility] [id number] [address]- 0833 Jan, [facility] [id number] [address]- 8226 Jan, [facility] [address] [address]- 6754 Jan, [facility] [address] [address]- 7177 Jan, [facility] [address] [address]- 8400 Jan, [facility] [address] [address]- 5926 Jan, [facility] [id number] [address]- 4437 Jan, [facility] [address] [address]- 0660 Dec, [facility] [address] [address]- 2237 Dec, [facility] [address] [address]- 4813 Nov, [facility] [place] [facility] [address] [id number] [place] [address]- 2641 Nov, [facility] [place] [facility] [address] [id number] [place] [address]- 1961 Nov, [facility] [place] [facility] [address] [id number] [place] [address]- 9445 Nov, [facility] [place] [facility] [address] [id number] [place] [address]- 4874 Nov, [facility] [place] [facility] [address] [id number] [place] [address]- 2885 Nov, [facility] [place] [facility] [address] [id number] [place] [address]- 2134 Oct, [facility] [place] [facility] [address] [id number] [place] [address]- 4313 Oct, [facility] [place] [facility] [address] [id number] [place] [address]- 8624 Sep, [facility] [place] [facility] [address] [id number] [place] [address]- 1974 Sep, [facility] [place] [facility] [address] [id number] [place] [address]- 1617 Sep, [facility] [place] [facility] [address] [id number] [address]- 5832 Sep, [facility] [place] [facility] [address] [id number] [place] [address]- 2561 Aug, [facility] [place] [facility] [address] [id number] [place] [address]- 4014 Aug, [facility] [place] [facility] [address] [id number] [place] [address]- 2644 Jul, [facility] [place] [facility] [address] [id number] [place] [address]- 0029 Jul, [facility] [place] [facility] [address] [id number] [place] [address]- 5892 Jun, [facility] [place] [facility] [address] [id number] [place] [address]- 1142 Jun, [facility] [place] [facility] [address] [id number] [place] [address]- 3899 Jun, [facility] [place] [facility] [address] [id number] [place] [address]- 6674 Jun, [facility] [place] [facility] [address] [id number] [place] [address]- 3130 May, [facility] [place] [facility] [address] [id number] [place] [address]- 7032 May, [facility] [place] [facility] [address] [id number] [place] [address]- 7902 May, [facility] [place] [facility] [address] [id number] [place] [address]- 8842 May, [facility] [place] [facility] [address] [id number] [place] [address]- 0144 Apr, [facility] [place] [facility] [address] [id number] [place] [address]- 4896 Apr, [facility] [place] [facility] [address] [id number] [place] [address]- 8500 March, [facility] [place] [facility] [address] [id number] [place] [address]- 3504 March, [facility] [place] [facility] [address] [id number] [place] [address]- 4497 March, [facility] [place] [facility] [address] [id number] [place] [address]- 4575 March, [facility] [place] [facility] [address] [id number] [place] [address]- 1476 March, [facility] [place] [facility] [address] [id number] [place] [address]22 March, [facility] [place] [facility] [address] [id number] [place] [address]- 6234 Feb, [facility] [place] [facility] [address] [id number] [place] [address]- 7513 Feb, [facility] [place] [facility] [address] [id number] [place] [address]- 9662 Feb, [facility] [place] [facility] [address] [id number] [place] [address]- 4327 Feb, [facility] [place] [facility] [address] [id number] [place] [address]- 2486 Feb, [facility] [place] [facility] [address] [id number] [place] [address]- 3224 Feb, [facility] [place] [facility] [address] [id number] [place] [address]- 6076 Feb, [facility] [place] [facility] [address] [id number] [place] [address]- 2971 Feb, [facility] [place] [facility] [address] [id number] [place] [address]- 8761 Jan, [facility] [place] [facility] [address] [id number] [place] [address]- 5876 Jan, [facility] [place] [facility] [address] [id number] [place] [address] Jan, [facility] [place] [facility] [address] [id number] [place] [address] Jan, [facility] [place] [facility] [address] [id number] [place] [address] Jan, [facility] [place] [facility] [address] [id number] [place] [address] Jan, [facility] [place] [facility] [address] [id number] [place] [address] Jan, [facility] [place] [facility] [address] [id number] [address] Jan, [facility] [address] [id number] [place] [address] Jan, [facility] [place] [facility] [address] [id number] [place] [address] Dec, [facility] [place] [facility] [address] [id number] [place] [address] Dec, [facility] [place] [facility] [address] [id number] [place] [address] Nov, [facility] [place] [facility] [address] [id number] [place] [address] Nov, [facility] [place] [facility] [address] [id number] [place] [address] Nov, [facility] [place] [facility] [address] [id number] [place] [address] Nov, [facility] [place] [facility] [address] [id number] [place] [address] Nov, [facility] [place] [facility] [address] [id number] [place] [address] Nov, [facility] [place] [facility] [address] [facility] [id number] [place] [address] Oct, [facility] [place] [facility] [address] [id number] [place] [address] Oct, [facility] [place] [facility] [address] [id number] [place] [address] Sep, [facility] [place] [facility] [address] [id number] [place] [address] Sep, [facility] [place] [facility] [address] [id number] [place] [address] Sep, [facility] [place] [facility] [address] [facility] [id number] [place] [address] Sep, [facility] [place] [facility] [address] [id number] [place] [address] Sep, [facility] [place] [facility] [address] [id number] [place] [address] Sep, [facility] [place] [facility] [address] [id number] [place] [address] Sep, [facility] [place] [facility] [address] [id number] [place] [address] Sep, [facility] [place] [facility] [address] [id number] [place] [address] Aug, [facility] [place] [facility] [address] [id number] [place] [address] Aug, [facility] [place] [facility] [address] [id number] [place] [address] Aug, [facility] [place] [facility] [address] [id number] [place] [address] Jul, [facility] [place] [facility] [address] [id number] [place] [address] Jul, [facility] [place] [facility] [address] [id number] [place] [address]- [address] Jul, [facility] [place] [facility] [address] [id number] [place] [address] Jun, [facility] [place] [facility] [address] [id number] [place] [address] Jun, [facility] [place] [facility] [address] [id number] [place] [address] Jun, [facility] [place] [facility] [address] [id number] [place] [address] Jun, [facility] [place] [facility] [address] [id number] [place] [address] Jun, [facility] [place] [facility] [address] [id number] [place] [address] Jun, [facility] [address] [id number] [place] [address] May, [facility] [place] [facility] [address] [id number] [place] [address] May, [facility] [address] [id number] [place] [address] Apr, [facility] [place] [facility] [address] [id number] [place] [address] 100[address] Apr, [facility] [address] [id number] [place] [address] March, [facility] [address] [id number] [place] [address] Feb, [facility] [place] [facility] [address] [id number] [place] [address] Feb, [facility] [place] [facility] [address] [id number] [place] [address] Feb, [facility] [address] [id number] [place] [address] Feb, [facility] [place] [facility] [address] [id number] [place] [address] Jan, [facility] [place] [facility] [address] [id number] [place] [address] 89[address] Jan, [facility] [place] [facility] [address] [id number] [place] [address]28 Jan, [facility] [place] [facility] [address] [id number] [place] [address] Jan, [facility] [place] [facility] [address] [id number] [place] [address] 92[address] Jan, [facility] [place] [facility] [address] [id number] [place] [address] 2545 Dec, [facility] [place] [facility] [address] [id number] [place] [address] 8968 Nov, [facility] [address] [id number] [place] [address] Nov, [facility] [address] [id number] [place] Oct, [facility] [address] [id number] [place] [address] Oct, [facility] [address] [id number] [place] [address] 2855 Oct, [facility] [address] [id number] [place] [address] 4636 Oct, [facility] [address] [id number] [place] [address] Oct, [facility] [address] [id number] [place] [address] Oct, [facility] [address] [id number] [place] [address] 47[address] Oct, [facility] [address] [id number] [place] [address] 64[address] Oct, [facility] [address] [facility] [id number] [place] [address] Aug, [facility] [place] [facility] [address] [id number] [place] [address] 1367 Aug, [facility] [address] [id number] [place] [address] 89[address] Aug, [facility] [place] [facility] [address] [id number] [place] [address] 6[address] Aug, [facility] [place] [facility] [address] [facility] [id number] [place] [address] 9[address] Aug, [facility] [address] [id number] [place] [address]85 Aug, [facility] [place] [facility] [address] [id number] [place] [address] 15 Aug, 2012 [facility] [place] [facility] [address] [id number] [place] [address]- [address] 27 Jul, 2012 [facility] [place] [facility] [address] [id number] [place] [address] 27 Jul, 2012 [facility] [place] [facility] [address] [id number] [place] [address] Jul, [facility] [place] [facility] [address] [id number] [place] [address] Jul, [facility] [place] [facility] [address] [id number] [place] [address] 35[address] Jul, [facility] [place] [facility] [address] [id number] [place] [address] 288[address] Jun, [facility] [place] [facility] [address] [id number] [place] [address] 5[address] Jun, [facility] [place] [facility] [address] [id number] [place] [address] 4316 Jun, [facility] [place] [facility] [address] [id number] [place] [address] 7512 May, [facility] [place] [facility] [address] [id number] [place] [address] 2813 May, [facility] [place] [facility] [address] [id number] [address] May, [facility] [place] [facility] [address] [id number] [place] [address] May, [facility] [place] [facility] [address] [id number] [place] [address]104 May, [facility] [place] [facility] [address] [id number] [place] [address] 1332 May, [facility] [place] [facility] [address] [id number] [address] 30[address] May, [facility] [place] [facility] [address] [id number] [place] [address] 3019 Apr, [facility] [place] [facility] [address] [id number] [place] [address] 4616 Apr, [facility] [place] [facility] [address] [id number] [place] [address] 2566 March, [facility] [place] [facility] [address] [id number] [place] [address] 07[address] Feb, [facility] [place] [facility] [address] [id number] [place] [address] 8872 30 Jan, 2012 [facility] [place] [facility] [address] [id number] [place] [address] 3740 Jan, [facility] [place] [facility] [address] [id number] [place] [address]- 0010 Jan, [facility] [place] [facility] [address] [id number] [place] [address]- 6462 Jan, [facility] [place] [facility] [address] [id number] [place] [address]- 4506 Jan, [facility] [place] [facility] [address] [id number] [place] [address]- 4121 Jan, [facility] [place] [facility] [address] [id number] [place] [address]- 2477 Jan, [facility] [place] [facility] [address] [id number] [place] [address]- 7574 Jan, [facility] [place] [facility] [address] [id number] [place] [address]- 1869 Jan, [facility] [place] [facility] [address] [id number] [place] [address] Jan, [facility] [place] [facility] [address] [id number] [place] [address]- 6658 Dec, [facility] [place] [facility] [address] [facility] [id number] [place] [address]- 2712 Dec, [facility] [address] [facility] [id number] [place] [address] Dec, [facility] [address] [facility] [id number] [place] [address]- 4766 Dec, [facility] [address] [id number] [place] [address] 224[address] Dec, [facility] [address] [facility] [id number] [place] [address] Dec, [facility] [address] [facility] [id number] [place] [address]- [address]286 Dec, [facility] [address] [id number] [place] [address] 0040 Dec, [facility] [address] [id number] [address] 32[address] Nov, [facility] [address] [id number] [place] [address]- 1842 Nov, [facility] [id number] [address] Nov, [facility] [address] [id number] [address]- 9568 Oct, [facility] [id number] [address] 4[address] Oct, [facility] [address] [facility] [id number] [place] [address]- 67[address] Oct, [facility] [id number] [address] 0476 Oct, [facility] [address] [id number] [address] 08 Sep, 2011 IMMUNIZATIONS No Known Immunizations SOCIAL HISTORY Never Assessed REASON FOR VISIT Diabetes -[facility] PLAN OF CARE VITAL SIGNS Height 64 in 2018-04-29 Weight 210 lbs 2018-04-29 Temperature 97.5 degrees Fahrenheit 2018-04-29 Heart Rate 75 bpm 2018-04-29 Respiratory Rate 20 2018-04-29 Oximetry on room air:95 % 2018-04-29 BMI 36.04 kg/m2 2018-04-29 Blood pressure systolic 130 mmHg 2018-04-29 Blood pressure diastolic 68 mmHg 2018-04-29 MEDICATIONS Medication Instructions Dosage Frequency Start Date End Date Duration Status Citalopram Hydrobromide 10 MG TAKE ONE TABLET BY MOUTH ONCE DAILY 90 Active Blood Glucose Monitor System w/Device subcutaneously 2 times a day test blood sugar 12h Active Toviaz 8 MG TAKE ONE TABLET BY MOUTH ONCE DAILY 90 Active Cetirizine HCl 10 MG TAKE ONE TABLET BY MOUTH ONCE DAILY 30 Active Blood Glucose Test - In Vitro 2 times a day, one touch ultra test blood sugar Active Natroba 0.9 % Externally one time, may repeat if needed apply contents of bottle to cover scalp and hair Feb, Active Atorvastatin Calcium 40 mg Orally Once a day 1 tablet 24h Feb, 30 day(s) Active Myrbetriq 50 MG TAKE ONE TABLET BY MOUTH ONCE DAILY Apr, 30 Active Ventolin HFA 108 (90 Base) MCG/ACT Inhalation every 6 hrs 2 puffs as needed 6h 30 Feb, 2018 Active Metformin HCl 500 mg 2 tablets 12h Active Gabapentin 100 MG TAKE ONE CAPSULE BY MOUTH ONCE DAILY 90 Active Ondansetron HCl 4 MG TAKE ONE TABLET BY MOUTH THREE TIMES DAILY FOR 10 DAYS 10 Active Rock View 10-325 MG Orally every 6 hrs 1 tablet as needed 6h Apr, 28 days Active Ropinirole HCl 4 MG TAKE ONE TABLET BY MOUTH ONCE DAILY 90 Active Terbinafine HCl 1 % Externally Twice a day 1 application to affected area 12h Feb, Active Ranitidine HCl 150 MG TAKE ONE TABLET BY MOUTH TWICE DAILY NEEDED 90 Active Zofran 4 MG Orally 3 times a day 1 tablet 8h 10 Active OneTouch Delica Lancets 33G 33 test blood sugar 12h Active Levothyroxine Sodium 125 mcg Orally Once a day 1 tablet on an empty stomach in the morning 24h Active Montelukast Sodium 10 MG 1 tablet 24h 30 Active Advair Diskus 500-50 MCG/DOSE 1 puff 12h Active RESULTS No Results PROCEDURES Procedure Date Ordered Result Body Site GLYCATED HEMOGLOBIN TEST April 29, 2018 [facility] VISIT ESTABLISHED PATIENT April 29, 2018 LAB [facility] April 29, 2018 INSTRUCTIONS MEDICATIONS ADMINISTERED No Known Medications [...]
--- OUTSIDE RECORDS SUMMARY | 2019-01-07 23:55 | XMS REPORT ---
Author Author NALINI GOMEZ Organization [facility] Address [address] [place] [address] Care Team Providers Care Senior Network Engineer Name Role Phone NALINI GOMEZ Unavailable PROBLEMS Type Condition ICD9-CM Code [id number] Code Onset Dates Condition Status SNOMED Code Problem Type 2 diabetes mellitus without complications E11.9 Active 602937849 Problem Other chronic pain G89.29 Active 78558563 Problem Controlled type 2 diabetes mellitus without complication, without long -term current use of insulin E11.9 Active 853545606 Problem Panlobular emphysema J43.1 Active 7908690 Problem Hypercholesterolemia 272.0 Active 65782450 Problem Mixed hyperlipidemia E78.2 Active 207728542 Problem Urinary, incontinence, stress female N39.3 Active 01487732 Problem Acquired hypothyroidism E03.9 Active 804765247 Problem Hypothyroidism, unspecified E03.9 Active 21015183 Problem Episode of recurrent major depressive disorder, unspecified depression episode severity F33.9 Active 438259160 Problem Hypothyroidism (acquired) E03.9 Active 61951913 ALLERGIES No Information ENCOUNTERS Encounter Location Date Diagnosis [facility] [id number] [place] [address] 15063- 9562 Jun, [facility] [id number] [place] [address] 62700- 6718 Jun, [facility] [id number] [place] [address] 98634- 4732 Jun, [facility] [id number] [place] [address] 23514- 4108 May, [facility] [id number] [place] [address] 83823- 8475 May, Viral gastroenteritis A08.4 [facility] [id number] [place] [address] 42792- 8550 May, Acute diffuse otitis externa of left ear H60.312 and Acquired hypothyroidism E03.9 [place] [address] 21580- 5631 May, Episode of recurrent major depressive disorder, unspecified depression episode severity F33.9 ; Urinary, incontinence, stress female N39.3 ; Mixed hyperlipidemia E78.2 and Hypothyroidism (acquired) E03.9 [place] [address] 91394- 5067 May, [place] [address] 07077- 9909 May, Viral gastroenteritis A08.4 [place] [address] 35379- 7566 Apr, Acute diffuse otitis externa of left ear H60.312 and Hypothyroidism (acquired) E03.9 [place] [address] 18509- 4081 Apr, Viral gastroenteritis A08.4 and Acquired hypothyroidism E03.9 [place] [address] 42517- 2636 Apr, Type 2 diabetes mellitus without complications E11.9 and Panlobular emphysema J43.1 [place] [address] 32350- 9966 Apr, Viral gastroenteritis A08.4 [place] [address] 75534- 9509 March, [place] [address] 41233- 8345 March, Viral gastroenteritis A08.4 [place] [address] 46266- 5607 Feb, Panlobular emphysema J43.1 [place] [address] 46942- 1300 Feb, Panlobular emphysema J43.1 [place] [id number] [place] [address] 09161- 7913 Feb, [place] [id number] [place] [address] 35918- 4415 Feb, [place] [id number] [place] [address] 15949- 1850 Feb, Viral gastroenteritis A08.4 [place] [id number] [place] [address] 07221- 8210 Feb, Head lice B85.0 [place] [id number] [place] [address] 29535- 3696 Feb, Medicare annual wellness visit, initial Z00.00 ; Head lice B85.0 ; Tinea corporis B35.4 and Enlarged lymph node R59.9 [place] [id number] [place] [address] 88342- 2110 Jan, Viral gastroenteritis A08.4 [place] [id number] [place] [address] 64048- 4665 Jan, [place] [id number] [place] [address] 85593- 3728 Dec, Controlled type 2 diabetes mellitus without complication, without long-term current use of insulin E11.9 [place] [id number] [place] [address] 81386- 3013 Dec, [place] [id number] [place] [address] 79325- 6306 Dec, Viral gastroenteritis A08.4 [place] [id number] [place] [address] 32377- 3012 Nov, Viral gastroenteritis A08.4 [place] [id number] [place] [address] 43096- 1820 Oct, Acute upper respiratory infection, unspecified J06.9 and Other viral agents as the cause of diseases classified elsewhere B97.89 [facility] [id number] [place] [address] 22828- 1594 Oct, Viral gastroenteritis A08.4 [place] [id number] [place] [address] 74119- 2641 Oct, Encounter for immunization Z23 ; Controlled type 2 diabetes mellitus without complication, without long-term current use of insulin E11.9 and Acute pain of left foot M79.672 [place] [address] 80031- 7089 Sep, Viral gastroenteritis A08.4 [place] [address] 86076- 6366 Aug, Viral gastroenteritis A08.4 [place] [id number] [place] [address] 99030- 0970 Jul, Viral gastroenteritis A08.4 [facility] [id number] [place] [address] 36401 -2190 Jul, Acute nasopharyngitis (common cold) J00 [place] [address] 36646- 7242 Jun, Viral gastroenteritis A08.4 [place] [address] 11068- 0436 Jun, [place] [id number] [place] [address] 54935- 2567 Jun, Viral gastroenteritis A08.4 [place] [id number] [place] [address] 60486- 4702 May, Patellar tendinitis, left knee M76.52 [place] [id number] [place] [address] 56725- 1423 May, Viral gastroenteritis A08.4 [place] [id number] [place] [address] 76585- 1638 16 Britton, 2017 Viral gastroenteritis A08.4 and Hypothyroidism, unspecified E03.9 [place] [id number] [place] [address] 02646- 5397 15 Apr, 2017 Pain in left knee M25.562 ; Acute left-sided low back pain without sciatica M54.5 and Type 2 diabetes mellitus without complications E11.9 [place] [id number] [place] [address] 60012- 0580 07 Apr, 2017 Viral gastroenteritis A08.4 [place] [id number] [place] [address] 08599- 6151 March, Viral gastroenteritis A08.4 [facility] [id number] [place] [address] 09926 -6735 Feb, Acute pain of left knee M25.562 [place] [id number] [place] [address] 77525- 9372 13 Feb, 2017 Viral gastroenteritis A08.4 [place] [id number] [place] [address] 57576- 1920 16 Jan, 2017 Viral gastroenteritis A08.4 and Controlled type 2 diabetes mellitus without complication, without long-term current use of insulin E11.9 [place] [id number] [place] [address] 22876- 0239 14 Jan, 2017 [place] [id number] [place] [address] 95423- 6001 16 Dec, 2016 Other chronic pain G89.29 ; Pain in left knee M25.562 ; Controlled type 2 diabetes mellitus without complication, without long-term current use of insulin E11.9 and Acute cystitis with hematuria N30.01 [place] [id number] [place] [address] 35586- 0924 Dec, [place] [id number] [place] [address] 63979- 2627 Nov, Type 2 diabetes mellitus without complications E11.9 [place] [id number] [place] [address] 78373- 4256 Nov, [facility] [id number] [place] [address] 29985- 1470 Oct, [facility] [id number] [place] [address] 83812- 7256 Sep, [facility] [id number] [place] [address] 27681- 0392 Aug, [place] [id number] [place] [address] 37842- 0106 Aug, [place] [id number] [place] [address] 96036- 4901 Jul, Controlled type 2 diabetes mellitus without complication, without long-term current use of insulin E11.9 ; Callus of foot L84 and URI, acute J06.9 [place] [id number] [place] [address] 94436- 3787 Jul, [place] [id number] [place] [address] 68884- 6219 Jun, Onychomycosis B35.1 and Nail ingrowing L60.0 [place] [id number] [place] [address] 60616- 6293 Jun, [place] [id number] [place] [address] 79966- 7933 Jun, Lumbar back pain with radiculopathy affecting left lower extremity M54.17 [place] [id number] [place] [address] 97034- 3715 Jun, [place] [id number] [place] [address] 94347- 4605 Jun, Other chronic pain G89.29 [place] [id number] [place] [address] 03764- 2982 08 Jun, 2016 Other chronic pain G89.29 [place] [id number] [place] [address] 07328- 7276 Jun, Type 2 diabetes mellitus without complications E11.9 [facility] [id number] [place] [address] 47625- 1128 Jun, [facility] [id number] [place] [address] 66684- 2381 Jun, Onychomycosis B35.1 ; Callus L84 and Rash R21 [facility] [id number] [place] [address] 23469- 6385 May, [facility] [id number] [place] [address] 02600- 2182 May, [facility] [id number] [place] [address] 34792- 2071 May, Type 2 diabetes mellitus without complications E11.9 [place] [id number] [place] [address] 53602- 9282 May, [facility] [id number] [place] [address] 79388- 4731 Apr, [facility] [id number] [place] [address] 71630- 4136 Apr, Type 2 diabetes mellitus without complications E11.9 ; Acquired hypothyroidism E03.9 ; Callus of foot L84 and Upper respiratory tract infection, unspecified type J06.9 [place] [address] [address]- 1000 March, [facility] [id number] [address]- 3534 Feb, [facility] [id number] [place] [address] 14517- 9120 Jan, Diabetes mellitus without mention of complication, type II or unspecified type, not stated as uncontrolled 250.00 [facility] [id number] [place] [address] 67531- 8870 Jan, [facility] [id number] [place] [address] 06789- 2395 Jan, Diabetes E11.9 and Hypothyroidism E03.9 [facility] [id number] [place] [address] 64291- 8666 Dec, Diarrhea R19.7 [facility] [id number] [place] [address] 51035- 9996 15 Dec, 2015 [facility] [id number] [place] [address] 15901- 1376 Dec, Hypothyroidism, unspecified E03.9 [facility] [id number] [place] [address] 61993- 1156 Dec, [facility] [id number] [place] [address] 79000- 1006 Dec, Hypothyroidism, unspecified E03.9 [facility] [id number] [place] [address] 11293- 6756 Dec, Diarrhea R19.7 [facility] [id number] [place] [address] 00182- 5230 Dec, Diarrhea R19.7 [facility] [id number] [place] [address] 80686- 6820 Nov, [facility] [id number] [place] [address] 37986- 6613 Nov, [facility] [id number] [place] [address] 85073- 5391 Oct, [facility] [id number] [place] [address] 24219- 4258 Sep, Postnasal drip R09.82 [facility] [id number] [place] [address] 06312- 5800 Sep, [facility] [id number] [place] [address] 03059- 3718 Sep, [facility] [id number] [place] [address] 21456- 5897 14 Aug, 2015 [facility] [id number] [place] [address] 19167- 9345 Aug, [facility] [id number] [place] [address] 54640- 9996 Jul, Hypothyroidism 244.9 [facility] [address] 37878- 6676 Jul, Diabetes mellitus without mention of complication, type II or unspecified type, not stated as uncontrolled 250.00 [facility] [id number] [place] [address] 88828- 3135 Jul, [facility] [id number] [place] [address] 21620- 4763 Jul, [facility] [id number] [place] [address] 21437- 6247 Jun, [facility] [address] 22028- 6652 May, Other chronic pain 338.29 [facility] [address] 15883- 8973 May, Other chronic pain 338.29 [facility] [id number] [place] [address] 99578- 7539 May, [facility] [id number] [place] [address] 44773- 5822 May, [facility] [id number] [place] [address] 55886- 7406 Apr, Rash 782.1 ; Hypercholesterolemia 272.0 and Hypothyroidism 244.9 [facility] [id number] [place] [address] 85099- 1773 Apr, [facility] [id number] [place] [address] 50795- 5584 Apr, [facility] [address] [place] [address]- 6011 March, [facility] [place] [facility] [address] [id number] [place] [address]- 6047 14 Feb, 2015 [facility] [place] [facility] [address] [id number] [place] [address]- 1853 13 Feb, 2015 [facility] [place] [facility] [address] [id number] [place] [address]- 2061 26 Jan, 2015 [facility] [place] [facility] [address] [id number] [place] [address]- 1117 Jan, [facility] [place] [facility] [address] [id number] [place] [address]- 6684 Jan, [facility] [place] [facility] [address] [id number] [place] [address]- 1056 Jan, [facility] [place] [facility] [address] [id number] [place] [address]- 5220 Jan, [facility] [place] [facility] [address] [id number] [place] [address]- 9106 Jan, [facility] [place] [facility] [address] [id number] [place] [address]- 1394 Jan, [facility] [place] [facility] [address] [id number] [place] [address]- 5410 Dec, [facility] [place] [facility] [address] [id number] [place] [address]- 9176 Dec, [facility] [place] [facility] [address] [id number] [place] [address]- 6281 Nov, [facility] [place] [facility] [address] [id number] [place] [address]- 1576 Nov, [facility] [place] [facility] [address] [id number] [place] [address]- 7015 Nov, [facility] [place] [facility] [address] [id number] [place] [address]- 0401 Nov, [facility] [place] [facility] [address] [id number] [place] [address]- 3787 Nov, [facility] [place] [facility] [address] [id number] [place] [address]- 6738 Nov, [facility] [place] [facility] [address] [id number] [place] [address]- 5290 Oct, [facility] [place] [facility] [address] [id number] [place] [address]- 3192 Oct, [facility] [place] [facility] [address] [id number] [place] [address]- 1886 Sep, [facility] [place] [facility] [address] [id number] [place] [address]- 1449 Sep, [facility] [place] [facility] [address] [id number] [place] [address]- 9642 Sep, [facility] [place] [facility] [address] [id number] [place] [address]- 4406 Sep, [facility] [place] [facility] [address] [id number] [place] [address]- 1663 Aug, [facility] [place] [facility] [address] [id number] [place] [address]- 9414 Aug, [facility] [place] [facility] [address] [id number] [place] [address]- 2044 Jul, [facility] [place] [facility] [address] [id number] [place] [address]- 1509 Jul, [facility] [place] [facility] [address] [id number] [place] [address]- 8899 Jun, [facility] [place] [facility] [address] [id number] [place] [address]- 8301 Jun, [facility] [place] [facility] [address] [id number] [place] [address]- 5488 Jun, [facility] [place] [facility] [address] [id number] [place] [address]- 2522 Jun, [facility] [place] [facility] [address] [id number] [place] [address]- 4409 May, [facility] [place] [facility] [address] [id number] [place] [address]- 2098 May, [facility] [place] [facility] [address] [id number] [place] [address]- 1911 May, [facility] [place] [facility] [address] [id number] [place] [address]- 9290 May, [facility] [place] [facility] [address] [id number] [place] [address]- 3823 Apr, [facility] [place] [facility] [address] [id number] [place] [address]- 3360 Apr, [facility] [place] [facility] [address] [id number] [place] [address]- 4020 March, [facility] [place] [facility] [address] [id number] [place] [address]- 0763 March, [facility] [place] [facility] [address] [id number] [place] [address]- 8074 March, [facility] [place] [facility] [address] [id number] [place] [address]- 0988 March, [facility] [place] [facility] [address] [id number] [place] [address]- 3673 March, [facility] [place] [facility] [address] [id number] [place] [address]- 0825 March, [facility] [place] [facility] [address] [id number] [place] [address]- 8902 Feb, [facility] [place] [facility] [address] [id number] [place] [address]- 4262 Feb, [facility] [place] [facility] [address] [id number] [place] [address]- 2303 Feb, [facility] [place] [facility] [address] [id number] [place] [address]- 6004 Feb, [facility] [place] [facility] [address] [id number] [place] [address]- 9996 Feb, [facility] [place] [facility] [address] [id number] [place] [address]- 6506 Feb, [facility] [place] [facility] [address] [id number] [place] [address]- 9503 Feb, [facility] [place] [facility] [address] [id number] [place] [address]- 7828 Feb, [facility] [place] [facility] [address] [id number] [place] [address]- 2909 Jan, [facility] [place] [facility] [address] [id number] [place] [address]- 8808 Jan, [facility] [place] [facility] [address] [id number] [place] [address]- 7122 Jan, [facility] [place] [facility] [address] [id number] [place] [address]- 4294 Jan, [facility] [place] [facility] [address] [id number] [place] [address]- 5325 Jan, [facility] [place] [facility] [address] [id number] [place] [address] Jan, [facility] [place] [facility] [address] [id number] [place] [address] Jan, [facility] [place] [facility] [address] [id number] [place] [address] Jan, [facility] [place] [facility] [address] [id number] [place] [address] Jan, [facility] [place] [facility] [address] [id number] [place] [address] Dec, [facility] [place] [facility] [address] [id number] [place] [address] Dec, [facility] [place] [facility] [address] [id number] [place] [address] Nov, [facility] [place] [facility] [address] [id number] [place] [address] Nov, [facility] [place] [facility] [address] [id number] [place] [address] Nov, [facility] [place] [facility] [address] [id number] [place] [address] Nov, [facility] [place] [facility] [address] [id number] [place] [address] Nov, [facility] [place] [facility] [address] [id number] [place] [address] Nov, [facility] [place] [facility] [address] [id number] [place] [address] Oct, [facility] [place] [facility] [address] [id number] [place] [address] Oct, [facility] [place] [facility] [address] [id number] [place] [address] Sep, [facility] [place] [facility] [address] [id number] [place] [address] Sep, [facility] [place] [facility] [address] [id number] [address] Sep, [facility] [place] [facility] [address] [id number] [address] Sep, [facility] [place] [facility] [address] [id number] [place] [address] Sep, [facility] [place] [facility] [address] [id number] [address] Sep, [facility] [place] [facility] [address] [id number] [place] [address] Sep, [facility] [place] [facility] [address] [id number] [place] [address] Sep, [facility] [address] [id number] [place] [address] Aug, [facility] [place] [facility] [address] [id number] [place] [address] Aug, [facility] [place] [facility] [address] [id number] [place] [address]- [address] Aug, [facility] [place] [facility] [address] [id number] [place] [address] Jul, [facility] [place] [facility] [address] [id number] [place] [address] Jul, [facility] [place] [facility] [address] [id number] [place] [address] Jul, [facility] [place] [facility] [address] [id number] [place] [address] Jun, [facility] [place] [facility] [address] [id number] [place] [address] Jun, [facility] [place] [facility] [address] [id number] [place] [address] Jun, [facility] [place] [facility] [address] [id number] [place] [address] Jun, [facility] [place] [facility] [address] [id number] [place] [address] Jun, [facility] [place] [facility] [address] [id number] [place] [address] Jun, [facility] [place] [facility] [address] [id number] [place] [address] May, [facility] [place] [facility] [address] [id number] [place] [address] May, [facility] [place] [facility] [address] [id number] [place] [address] Apr, [facility] [place] [facility] [address] [id number] [place] [address] Apr, [facility] [address] [id number] [place] [address] March, [facility] [address] [id number] [place] [address] Feb, [facility] [address] [id number] [place] [address] Feb, [facility] [address] [id number] [place] [address] 16 Feb, 2013 [facility] [address] [id number] [place] [address] Feb, [facility] [address] [id number] [place] [address] Jan, [facility] [address] [id number] [place] [address] Jan, [facility] [address] [id number] [place] [address] Jan, [facility] [address] [id number] [place] [address] Jan, [facility] [address] [id number] [place] [address] Jan, [facility] [address] [id number] [place] [address] Dec, [facility] [address] [id number] [place] [address] Nov, [facility] [place] [facility] [address] [id number] [place] [address] Nov, [facility] [address] [id number] [place] [address] Oct, [facility] [address] [id number] [place] [address] Oct, [facility] [place] [facility] [address] [id number] [place] [address] Oct, [facility] [place] [facility] [address] [id number] [place] [address] Oct, [facility] [place] [facility] [address] [id number] [place] [address]69 Oct, [facility] [place] [facility] [address] [id number] [place] [address] 69[address] Oct, [facility] [place] [facility] [address] [id number] [place] [address] Oct, [facility] [place] [facility] [address] [id number] [place] [address] Oct, [facility] [place] [facility] [address] [id number] [place] [address] Aug, [facility] [place] [facility] [address] [id number] [place] [address] 30 Aug, 2012 [facility] [place] [facility] [address] [id number] [place] [address] Aug, [facility] [place] [facility] [address] [id number] [place] [address] Aug, [facility] [place] [facility] [address] [id number] [address] Aug, [facility] [place] [facility] [address] [id number] [address] 19 Aug, 2012 [facility] [place] [facility] [address] [id number] [address] 15 Aug, 2012 [facility] [place] [facility] [address] [id number] [place] [address] 27 Jul, 2012 [facility] [place] [facility] [address] [id number] [place] [address] 27 Jul, 2012 [facility] [place] [facility] [address] [id number] [place] [address] Jul, [facility] [place] [facility] [address] [id number] [place] [address] Jul, [facility] [place] [facility] [address] [id number] [place] [address] Jul, [facility] [address] [id number] [place] [address] Jun, [facility] [place] [facility] [address] [id number] [place] [address] Jun, [facility] [address] [id number] [place] [address] Jun, [facility] [place] [facility] [address] [id number] [place] [address] May, [facility] [place] [facility] [address] [id number] [place] [address] May, [facility] [address] [id number] [place] [address]- 47[address] May, [facility] [place] [facility] [address] [id number] [place] [address] May, [facility] [address] [id number] [place] [address] May, [facility] [place] [facility] [address] [id number] [place] [address] May, [facility] [place] [facility] [address] [id number] [place] [address]28 May, [facility] [place] [facility] [address] [id number] [place] [address]- [address]5 Apr, [facility] [place] [facility] [address] [id number] [place] [address] Apr, [facility] [place] [facility] [address] [id number] [place] [address] March, [facility] [place] [facility] [address] [id number] [place] [address] Feb, [facility] [place] [facility] [address] [id number] [place] [address] 30 Jan, 2012 [facility] [place] [facility] [address] [id number] [place] [address] Jan, [facility] [place] [facility] [address] [id number] [place] [address] 6[address] Jan, [facility] [place] [facility] [address] [id number] [place] [address] 8[address] Jan, [facility] [place] [facility] [address] [id number] [place] [address] Jan, [facility] [place] [facility] [address] [id number] [place] [address]187 Jan, [facility] [place] [facility] [address] [id number] [place] [address] Jan, [facility] [place] [facility] [address] [id number] [place] [address]- 1060 Jan, [facility] [place] [facility] [address] [id number] [place] [address]- 7[address] Jan, [facility] [place] [facility] [address] [id number] [place] [address] Jan, [facility] [place] [facility] [address] [id number] [place] [address]- [address]181 Dec, [facility] [place] [facility] [address] [id number] [place] [address] Dec, [facility] [place] [facility] [address] [id number] [place] [address]- 3784 Dec, [facility] [place] [facility] [address] [id number] [place] [address] 6651 Dec, [facility] [place] [facility] [id number] [address] Dec, [facility] [id number] [address] Dec, [facility] [id number] [address] Dec, [facility] [id number] [address] Dec, [facility] [id number] [address] Nov, [facility] [id number] [place] [address]- [address] Nov, [facility] [id number] [address]- [address] Nov, [facility] [id number] [place] [address]- 89[address] Oct, [facility] [id number] [address]- [address] Oct, [facility] [id number] [address]- [address] Oct, [facility] [id number] [address]- [address] Oct, [facility] [address] [id number] [address] Sep, IMMUNIZATIONS No Known Immunizations SOCIAL HISTORY Never Assessed REASON FOR VISIT Controlled Med Refill 04/26/18 PLAN OF CARE VITAL SIGNS MEDICATIONS Medication Instructions Dosage Frequency Start Date End Date Duration Status [place] 10-325 MG Orally every 6 hrs 1 tablet as needed 6h Apr, 28 days Active RESULTS No Results PROCEDURES [...]
--- OUTSIDE RECORDS SUMMARY | 2019-01-07 23:55 | XMS REPORT ---
Author Author NALINI GOMEZ Organization [facility] [place] Address [address] [place] [address] Care Team Providers Care Network Specialist Name Role Phone NALINI GOMEZ Unavailable PROBLEMS Type Condition ICD9-CM Code MLD78-SZ Code Onset Dates Condition Status SNOMED Code Problem Type 2 diabetes mellitus without complications E11.9 Active 457837916 Problem Other chronic pain G89.29 Active 02112705 Problem Controlled type 2 diabetes mellitus without complication, without long -term current use of insulin E11.9 Active 687024135 Problem Panlobular emphysema J43.1 Active 6264702 Problem Hypercholesterolemia 272.0 Active 04999263 Problem Mixed hyperlipidemia E78.2 Active 381855132 Problem Urinary, incontinence, stress female N39.3 Active 98751433 Problem Acquired hypothyroidism E03.9 Active 300512751 Problem Hypothyroidism, unspecified E03.9 Active 75137562 Problem Episode of recurrent major depressive disorder, unspecified depression episode severity F33.9 Active 254108490 Problem Hypothyroidism (acquired) E03.9 Active 24691661 ALLERGIES No Information ENCOUNTERS Encounter Location Date Diagnosis [facility] [place] [id number] [place] [address] 20912- 4689 Jun, [facility] [place] [id number] [place] [address] 95764- 1125 Jun, [facility] [place] [id number] [place] [address] 17022- 5593 Jun, [facility] [place] [id number] [place] [address] 38616- 9396 May, [facility] [place] [id number] [place] [address] 93623- 5076 May, Viral gastroenteritis A08.4 [facility] [place] [id number] [place] [address] 92513- 3097 May, Acute diffuse otitis externa of left ear H60.312 and Acquired hypothyroidism E03.9 [place] [address] 48205- 2281 May, Episode of recurrent major depressive disorder, unspecified depression episode severity F33.9 ; Urinary, incontinence, stress female N39.3 ; Mixed hyperlipidemia E78.2 and Hypothyroidism (acquired) E03.9 [place] [address] 72079- 0350 May, [place] [address] 07165- 1701 May, Viral gastroenteritis A08.4 [place] [address] 99726- 6576 Apr, Acute diffuse otitis externa of left ear H60.312 and Hypothyroidism (acquired) E03.9 [place] [address] 32958- 4747 Apr, Viral gastroenteritis A08.4 and Acquired hypothyroidism E03.9 [place] [address] 03883- 8373 Apr, Type 2 diabetes mellitus without complications E11.9 and Panlobular emphysema J43.1 [place] [address] 82343- 0310 Apr, Viral gastroenteritis A08.4 [place] [address] 23441- 5123 March, [place] [address] 32467- 8580 March, Viral gastroenteritis A08.4 [place] [address] 20171- 5590 Feb, Panlobular emphysema J43.1 [place] [address] 23855- 9624 Feb, Panlobular emphysema J43.1 [place] [id number] [place] [address] 21986- 7813 Feb, [place] [id number] [place] [address] 62845- 0585 Feb, [place] [id number] [place] [address] 27205- 0199 Feb, Viral gastroenteritis A08.4 [place] [id number] [place] [address] 26290- 0812 Feb, Head lice B85.0 [place] [id number] [place] [address] 27992- 3996 Feb, Medicare annual wellness visit, initial Z00.00 ; Head lice B85.0 ; Tinea corporis B35.4 and Enlarged lymph node R59.9 [place] [id number] [place] [address] 67922- 8457 Jan, Viral gastroenteritis A08.4 [place] [id number] [place] [address] 04817- 2440 Jan, [place] [id number] [place] [address] 54683- 5802 Dec, Controlled type 2 diabetes mellitus without complication, without long-term current use of insulin E11.9 [place] [id number] [place] [address] 41896- 6818 Dec, [place] [address] [place] [address] 71632- 7893 Dec, Viral gastroenteritis A08.4 [place] [id number] [place] [address] 80663- 9664 Nov, Viral gastroenteritis A08.4 [place] [id number] [place] [address] 33224- 5297 Oct, Acute upper respiratory infection, unspecified J06.9 and Other viral agents as the cause of diseases classified elsewhere B97.89 [facility] [place] [id number] [place] [address] 64165- 1418 Oct, Viral gastroenteritis A08.4 [facility] [place] [id number] [place] [address] 54088- 3651 Oct, Controlled type 2 diabetes mellitus without complication, without long-term current use of insulin E11.9 ; Encounter for immunization Z23 and Acute pain of left foot M79.672 [place] [address] 29892- 4370 Sep, Viral gastroenteritis A08.4 [place] [address] 87970- 1212 Aug, Viral gastroenteritis A08.4 [place] [id number] [place] [address] 51472- 5379 Jul, Viral gastroenteritis A08.4 [facility] [id number] [place] [address] 50917 -5118 Jul, Acute nasopharyngitis (common cold) J00 [place] [address] 86405- 9323 Jun, Viral gastroenteritis A08.4 [place] [address] 86175- 9048 Jun, [place] [id number] [place] [address] 32801- 5696 Jun, Viral gastroenteritis A08.4 [place] [id number] [place] [address] 17493- 8981 May, Patellar tendinitis, left knee M76.52 [place] [id number] [place] [address] 92561- 7181 May, Viral gastroenteritis A08.4 [place] [id number] [place] [address] 23548- 5733 16 [place], 2017 Viral gastroenteritis A08.4 and Hypothyroidism, unspecified E03.9 [place] [id number] [place] [address] 91234- 4350 15 Apr, 2017 Pain in left knee M25.562 ; Acute left-sided low back pain without sciatica M54.5 and Type 2 diabetes mellitus without complications E11.9 [place] [id number] [place] [address] 57963- 5606 07 Apr, 2017 Viral gastroenteritis A08.4 [place] [id number] [place] [address] 05024- 0656 March, Viral gastroenteritis A08.4 [facility] [id number] [place] [address] 42675 -8616 Feb, Acute pain of left knee M25.562 [place] [id number] [place] [address] 38936- 6804 13 Feb, 2017 Viral gastroenteritis A08.4 [place] [id number] [place] [address] 16421- 9006 16 Jan, 2017 Viral gastroenteritis A08.4 and Controlled type 2 diabetes mellitus without complication, without long-term current use of insulin E11.9 [place] [id number] [place] [address] 49756- 2428 14 Jan, 2017 [place] [id number] [place] [address] 65630- 0068 16 Dec, 2016 Other chronic pain G89.29 ; Pain in left knee M25.562 ; Controlled type 2 diabetes mellitus without complication, without long-term current use of insulin E11.9 and Acute cystitis with hematuria N30.01 [place] [id number] [place] [address] 99851- 0274 Dec, [place] [id number] [place] [address] 03733- 3723 Nov, Type 2 diabetes mellitus without complications E11.9 [place] [id number] [place] [address] 93639- 8293 Nov, [facility] [place] [id number] [place] [address] 66200- 4082 Oct, [facility] [place] [id number] [place] [address] 76208- 9134 Sep, [facility] [place] [id number] [place] [address] 09056- 0027 Aug, [place] [id number] [place] [address] 92429- 1024 Aug, [place] [id number] [place] [address] 02935- 6005 Jul, Controlled type 2 diabetes mellitus without complication, without long-term current use of insulin E11.9 ; Callus of foot L84 and URI, acute J06.9 [place] [id number] [place] [address] 14580- 7308 Jul, [place] [id number] [place] [address] 29366- 8629 Jun, Onychomycosis B35.1 and Nail ingrowing L60.0 [place] [id number] [place] [address] 55984- 8374 Jun, [place] [id number] [place] [address] 08282- 4152 Jun, Lumbar back pain with radiculopathy affecting left lower extremity M54.17 [place] [id number] [place] [address] 82784- 3334 Jun, [place] [id number] [place] [address] 59365- 0599 Jun, Other chronic pain G89.29 [place] [id number] [place] [address] 60990- 7695 08 Jun, 2016 Other chronic pain G89.29 [place] [id number] [place] [address] 26666- 3311 Jun, Type 2 diabetes mellitus without complications E11.9 [facility] [place] [address] [place] [address] 83377- 2193 Jun, [facility] [place] [id number] [place] [address] 42685- 8368 Jun, Onychomycosis B35.1 ; Callus L84 and Rash R21 [facility] [place] [id number] [place] [address] 30168- 2866 May, [facility] [place] [id number] [place] [address] 76571- 7256 May, [facility] [place] [id number] [place] [address] 72885- 3973 May, Type 2 diabetes mellitus without complications E11.9 [place] [id number] [place] [address] 48680- 4776 May, [facility] [place] [id number] [place] [address] 76908- 2336 Apr, [facility] [place] [id number] [place] [address] 81150- 3836 Apr, Type 2 diabetes mellitus without complications E11.9 ; Acquired hypothyroidism E03.9 ; Callus of foot L84 and Upper respiratory tract infection, unspecified type J06.9 [place] [address] [address]- 3833 March, [facility] [place] [id number] [address]- 9649 Feb, [facility] [place] [id number] [place] [address] 41600- 5193 Jan, Diabetes mellitus without mention of complication, type II or unspecified type, not stated as uncontrolled 250.00 [facility] [place] [address] [place] [address] 74979- 1802 Jan, [facility] [place] [id number] [place] [address] 75800- 3740 Jan, Diabetes E11.9 and Hypothyroidism E03.9 [facility] [place] [id number] [place] [address] 22495- 0836 Dec, Diarrhea R19.7 [facility] [place] [id number] [place] [address] 82081- 6086 15 Dec, 2015 [facility] [place] [id number] [place] [address] 97146- 9826 Dec, Hypothyroidism, unspecified E03.9 [facility] [place] [id number] [place] [address] 32637- 1496 Dec, [facility] [place] [id number] [place] [address] 80940- 1458 Dec, Hypothyroidism, unspecified E03.9 [facility] [place] [id number] [place] [address] 59885- 6082 Dec, Diarrhea R19.7 [facility] [id number] [place] [address] 20236- 6116 Dec, Diarrhea R19.7 [facility] [place] [id number] [place] [address] 78483- 9878 Nov, [facility] [place] [id number] [place] [address] 81892- 3220 Nov, [facility] [place] [address] [place] [address] 24786- 1241 Oct, [facility] [place] [address] [place] [address] 94495- 0076 Sep, Postnasal drip R09.82 [facility] [place] [id number] [place] [address] 49615- 4059 Sep, [facility] [address] [place] [address] 60727- 7875 Sep, [facility] [place] [id number] [place] [address] 79526- 1399 14 Aug, 2015 [facility] [id number] [place] [address] 52909- 8208 Aug, [facility] [place] [id number] [place] [address] 89970- 0618 Jul, Hypothyroidism 244.9 [facility] [place] [address] 19977- 1097 Jul, Diabetes mellitus without mention of complication, type II or unspecified type, not stated as uncontrolled 250.00 [facility] [place] [id number] [place] [address] 34843- 7634 Jul, [facility] [place] [id number] [place] [address] 09622- 9234 Jul, [facility] [place] [id number] [place] [address] 37210- 8366 Jun, [facility] [place] [address] 61307- 9583 May, Other chronic pain 338.29 [facility] [place] [address] 87773- 9104 May, Other chronic pain 338.29 [facility] [place] [id number] [place] [address] 71216- 5736 May, [facility] [place] [id number] [place] [address] 02807- 6226 May, [facility] [place] [id number] [place] [address] 56495- 6676 Apr, Rash 782.1 ; Hypercholesterolemia 272.0 and Hypothyroidism 244.9 [facility] [place] [id number] [place] [address] 69290- 9372 Apr, [facility] [place] [id number] [place] [address] 43618- 4433 Apr, [facility] [address] [place] [address]- 9450 March, [facility] [place] [facility] [address] [id number] [place] [address]- 9170 14 Feb, 2015 [facility] [place] [facility] [address] [id number] [place] [address]- 9442 13 Feb, 2015 [facility] [place] [facility] [address] [id number] [place] [address]- 4090 26 Jan, 2015 [facility] [place] [facility] [address] [id number] [place] [address]- 0117 Jan, [facility] [place] [facility] [address] [id number] [place] [address]- 7885 Jan, [facility] [place] [facility] [address] [id number] [place] [address]- 0386 Jan, [facility] [place] [facility] [address] [id number] [place] [address]- 8276 Jan, [facility] [place] [facility] [address] [id number] [place] [address]- 4644 Jan, [facility] [place] [facility] [address] [id number] [place] [address]- 6687 Jan, [facility] [place] [facility] [address] [id number] [place] [address]- 6728 Dec, [facility] [place] [facility] [address] [id number] [place] [address]- 4914 Dec, [facility] [place] [facility] [address] [id number] [place] [address]- 3638 Nov, [facility] [place] [facility] [address] [id number] [place] [address]- 2268 Nov, [facility] [place] [facility] [address] [id number] [place] [address]- 6378 Nov, [facility] [place] [facility] [address] [id number] [place] [address]- 1513 Nov, [facility] [place] [facility] [address] [id number] [place] [address]- 8525 Nov, [facility] [place] [facility] [address] [id number] [place] [address]- 3491 Nov, [facility] [place] [facility] [address] [id number] [place] [address]- 4651 Oct, [facility] [place] [facility] [address] [id number] [place] [address]- 6140 Oct, [facility] [place] [facility] [address] [id number] [place] [address]- 4990 Sep, [facility] [place] [facility] [address] [id number] [place] [address]- 6893 Sep, [facility] [place] [facility] [address] [id number] [place] [address]- 1400 Sep, [facility] [place] [facility] [address] [id number] [place] [address]- 9749 Sep, [facility] [place] [facility] [address] [id number] [place] [address]- 6910 Aug, [facility] [place] [facility] [address] [id number] [place] [address]- 1167 Aug, [facility] [place] [facility] [address] [id number] [place] [address]- 8341 Jul, [facility] [place] [facility] [address] [id number] [place] [address]- 6413 Jul, [facility] [place] [facility] [address] [id number] [place] [address]- 2405 Jun, [facility] [place] [facility] [address] [id number] [place] [address]- 0741 Jun, [facility] [place] [facility] [address] [id number] [place] [address]- 3077 Jun, [facility] [place] [facility] [address] [id number] [place] [address]- 1105 Jun, [facility] [place] [facility] [address] [id number] [place] [address]- 5325 May, [facility] [place] [facility] [address] [id number] [place] [address]- 6971 May, [facility] [place] [facility] [address] [id number] [place] [address]- 3990 May, [facility] [place] [facility] [address] [id number] [place] [address]- 2032 May, [facility] [place] [facility] [address] [id number] [place] [address]- 0111 Apr, [facility] [place] [facility] [address] [id number] [place] [address]- 2756 Apr, [facility] [place] [facility] [address] [id number] [place] [address]- 6880 March, [facility] [place] [facility] [address] [id number] [place] [address]- 3379 March, [facility] [place] [facility] [address] [id number] [place] [address]- 9440 March, [facility] [place] [facility] [address] [id number] [place] [address]- 6270 March, [facility] [place] [facility] [address] [id number] [place] [address]- 3168 March, [facility] [place] [facility] [address] [id number] [place] [address]- 6706 March, [facility] [place] [facility] [address] [id number] [place] [address]- 6851 Feb, [facility] [place] [facility] [address] [id number] [place] [address]- 4780 Feb, [facility] [place] [facility] [address] [id number] [place] [address]- 7418 Feb, [facility] [place] [facility] [address] [id number] [place] [address]- 0723 Feb, [facility] [place] [facility] [address] [id number] [place] [address] Feb, [facility] [place] [facility] [address] [id number] [place] [address] Feb, [facility] [place] [facility] [address] [id number] [place] [address] Feb, [facility] [place] [facility] [address] [id number] [place] [address] Feb, [facility] [place] [facility] [address] [id number] [place] [address] Jan, [facility] [place] [facility] [address] [id number] [place] [address] Jan, [facility] [place] [facility] [address] [id number] [place] [address] Jan, [facility] [place] [facility] [address] [id number] [place] [address] Jan, [facility] [place] [facility] [address] [id number] [place] [address] Jan, [facility] [place] [facility] [address] [id number] [place] [address] Jan, [facility] [place] [facility] [address] [id number] [place] [address] Jan, [facility] [place] [facility] [address] [id number] [place] [address] Jan, [facility] [place] [facility] [address] [id number] [place] [address] Jan, [facility] [place] [facility] [address] [id number] [place] [address] Dec, [facility] [place] [facility] [address] [id number] [place] [address] Dec, [facility] [place] [facility] [address] [id number] [place] [address] Nov, [facility] [place] [facility] [address] [id number] [place] [address] Nov, [facility] [place] [facility] [address] [id number] [place] [address] Nov, [facility] [place] [facility] [address] [id number] [place] [address] Nov, [facility] [place] [facility] [address] [id number] [place] [address] Nov, [facility] [place] [facility] [address] [id number] [place] [address] Nov, [facility] [place] [facility] [address] [id number] [place] [address] Oct, [facility] [place] [facility] [address] [id number] [place] [address] Oct, [facility] [place] [facility] [address] [id number] [place] [address] Sep, [facility] [place] [facility] [address] [id number] [place] [address] Sep, [facility] [place] [facility] [address] [id number], [place] [address] Sep, [facility] [place] [facility] [address] [id number], [place] [address] Sep, [facility] [place] [facility] [address] [id number] [place] [address] Sep, [facility] [place] [facility] [address] [id number], [place] [address] Sep, [facility] [place] [facility] [address] [id number] [place] [address] Sep, [facility] [place] [facility] [address] [id number] [place] [address] Sep, [facility] [address] [id number] [place] [address] Aug, [facility] [place] [facility] [address] [id number] [place] [address] Aug, [facility] [place] [facility] [address] [id number] [place] [address] Aug, [facility] [place] [facility] [address] [id number] [place] [address] Jul, [facility] [place] [facility] [address] [id number] [place] [address] Jul, [facility] [place] [facility] [address] [id number] [place] [address] Jul, [facility] [place] [facility] [address] [id number] [place] [address] Jun, [facility] [place] [facility] [address] [id number] [place] [address] Jun, [facility] [place] [facility] [address] [id number] [place] [address] Jun, [facility] [place] [facility] [address] [id number] [place] [address] Jun, [facility] [place] [facility] [address] [id number] [place] [address] Jun, [facility] [place] [facility] [address] [id number] [place] [address] Jun, [facility] [place] [facility] [address] [id number] [place] [address] May, [facility] [place] [facility] [address] [id number] [place] [address] May, [facility] [place] [facility] [address] [id number] [place] [address] Apr, [facility] [place] [facility] [address] [id number] [place] [address] Apr, [facility] [address] [id number] [place] [address] March, [facility] [address] [id number] [place] [address] Feb, [facility] [address] [id number] [place] [address] Feb, [facility] [address] [id number] [place] [address] 16 Feb, 2013 [facility] [address] [id number] [place] [address] Feb, [facility] [address] [id number] [place] [address] Jan, [facility] [address] [id number] [place] [address] Jan, [facility] [address] [id number] [place] [address] Jan, [facility] [address] [id number] [place] [address]6 Jan, [facility] [address] [id number] [place] [address] 40[address] Jan, [facility] [address] [id number] [place] [address] Dec, [facility] [address] [id number] [place] [address] Nov, [facility] [place] [facility] [address] [id number] [place] [address]99 Nov, [facility] [address] [id number] [place] [address] Oct, [facility] [address] [id number] [place] [address] Oct, [facility] [place] [facility] [address] [id number] [place] [address] Oct, [facility] [place] [facility] [address] [id number] [place] [address] 4974 Oct, [facility] [place] [facility] [address] [id number] [place] [address] 3969 Oct, [facility] [place] [facility] [address] [id number] [place] [address]44 Oct, [facility] [place] [facility] [address] [id number] [place] [address] Oct, [facility] [place] [facility] [address] [id number] [place] [address] Oct, [facility] [place] [facility] [address] [id number] [place] [address] Aug, [facility] [place] [facility] [address] [id number] [place] [address]- [address]167 30 Aug, 2012 [facility] [place] [facility] [address] [id number] [place] [address] 4[address] Aug, [facility] [place] [facility] [address] [id number] [place] [address] 0474 Aug, [facility] [place] [facility] [address] [id number], [place] [address] Aug, [facility] [place] [facility] [address] [id number], [place] [address] 19 Aug, 2012 [facility] [place] [facility] [address] [id number], [place] [address] 15 Aug, 2012 [facility] [place] [facility] [address] [id number] [address] 27 Jul, 2012 [facility] [place] [facility] [address] [id number] [place] [address] 27 Jul, 2012 [facility] [place] [facility] [address] [id number] [place] [address] 40[address] Jul, [facility] [place] [facility] [address] [id number] [place] [address] 6398 Jul, [facility] [place] [facility] [address] [id number] [place] [address]- 6526 Jul, [facility] [address] [id number] [place] [address]- 0573 Jun, [facility] [place] [facility] [address] [id number] [place] [address] 3038 Jun, [facility] [address] [id number] [place] [address] 4[address] Jun, [facility] [place] [facility] [address] [id number] [place] [address] 2724 May, [facility] [place] [facility] [address] [id number] [place] [address]779 May, [facility] [address] [id number] [place] [address]- [address] May, [facility] [place] [facility] [address] [id number] [place] [address] 3060 May, [facility] [address] [id number] [place] [address]- 0794 May, [facility] [place] [facility] [address] [id number] [place] [address]- 1423 May, [facility] [place] [facility] [address] [id number] [place] [address]- 2691 May, [facility] [place] [facility] [address] [id number] [place] [address]- 3351 Apr, [facility] [place] [facility] [address] [id number] [place] [address]- 5639 Apr, [facility] [place] [facility] [address] [id number] [place] [address] March, [facility] [place] [facility] [address] [id number] [place] [address]- [address]157 Feb, [facility] [place] [facility] [address] [id number] [place] [address]- 2226 30 Jan, 2012 [facility] [place] [facility] [address] [id number] [place] [address]- 6462 Jan, [facility] [place] [facility] [address] [id number] [place] [address]- 7676 Jan, [facility] [place] [facility] [address] [id number] [place] [address]- 2887 Jan, [facility] [place] [facility] [address] [id number] [place] [address]- 0822 Jan, [facility] [place] [facility] [address] [id number] [place] [address]- 5885 Jan, [facility] [place] [facility] [address] [id number] [place] [address]- 7196 Jan, [facility] [place] [facility] [address] [id number] [place] [address]- 7328 Jan, [facility] [place] [facility] [address] [id number] [place] [address]- 2223 Jan, [facility] [place] [facility] [address] [id number] [place] [address]- 7806 Jan, [facility] [place] [facility] [address] [id number] [place] [address]- 6126 Dec, [facility] [place] [facility] [address] [id number] [place] [address]- 6396 Dec, [facility] [place] [facility] [address] [id number] [place] [address]- 3828 Dec, [facility] [place] [facility] [address] [id number] [place] [address]- 2989 Dec, [facility] [place] [facility] [id number] [place] [address]- [address] Dec, [facility] [id number], [place] [address]- [address] Dec, [facility] [id number], [place] [address] Dec, [facility] [id number] [place] [address]- [address]571 Dec, [facility] [id number] [place] [address]- 1640 Nov, [facility] [place] [id number] [place] [address]- 0670 Nov, [facility] [place] [id number] [place] [address]- 1629 Nov, [facility] [id number] [place] [address]- 2201 Oct, [facility] [place] [id number], [place] [address]- [address]4 Oct, [facility] [id number] [place] [address]- 1549 Oct, [facility] [id number], [place] [address]- [address]01 Oct, [facility] [id number], [place] [address]- 79[address] Sep, IMMUNIZATIONS No Known Immunizations SOCIAL HISTORY Never Assessed REASON FOR VISIT medication- pt here with concerns that her hydrocodone is not at pharmacy, told her it was just sent- [facility] PLAN OF CARE VITAL SIGNS MEDICATIONS Unknown [...] intraocular lens prosthesis Hospitalization History admitted to [facility] for bronchitis then went into cardiac arrest and was resuscitated. She was in the hospital for 7 days. 2012 Hospitalization History surgeries
--- OUTSIDE RECORDS SUMMARY | 2019-01-07 23:56 | XMS REPORT ---
Author Author NALINI GOMEZ Organization [facility] Address [address] [place] [address] Care Team Providers Care Hull Inspector Name Role Phone NALINI GOMEZ Unavailable PROBLEMS Type Condition ICD9-CM Code WIT80-PX Code Onset Dates Condition Status SNOMED Code Problem Type 2 diabetes mellitus without complications E11.9 Active 474269004 Problem Other chronic pain G89.29 Active 11872711 Problem Controlled type 2 diabetes mellitus without complication, without long -term current use of insulin E11.9 Active 360874987 Problem Panlobular emphysema J43.1 Active 6445262 Problem Hypercholesterolemia 272.0 Active 75865007 Problem Mixed hyperlipidemia E78.2 Active 042609089 Problem Urinary, incontinence, stress female N39.3 Active 69607939 Problem Acquired hypothyroidism E03.9 Active 722969665 Problem Hypothyroidism, unspecified E03.9 Active 32966769 Problem Episode of recurrent major depressive disorder, unspecified depression episode severity F33.9 Active 617407284 Problem Hypothyroidism (acquired) E03.9 Active [id number] ALLERGIES No Information ENCOUNTERS Encounter Location Date Diagnosis [facility] [id number] [place] [address] 29138- 3927 Jun, [facility] [id number] [place] [address] 53686- 7083 Jun, [facility] [id number] [place] [address] 52191- 6301 Jun, [facility] [id number] [place] [address] 76642- 8353 May, [facility] [id number] [place] [address] 14425- 4224 May, Viral gastroenteritis A08.4 [facility] [id number] [place] [address] 92715- 1646 May, Acute diffuse otitis externa of left ear H60.312 and Acquired hypothyroidism E03.9 [place] [address] 71801- 7081 May, Episode of recurrent major depressive disorder, unspecified depression episode severity F33.9 ; Urinary, incontinence, stress female N39.3 ; Mixed hyperlipidemia E78.2 and Hypothyroidism (acquired) E03.9 [place] [address] 52577- 7360 May, [place] [address] 53489- 2245 May, Viral gastroenteritis A08.4 [place] [address] 07020- 3892 Apr, Acute diffuse otitis externa of left ear H60.312 and Hypothyroidism (acquired) E03.9 [place] [address] 18669- 0935 Apr, Viral gastroenteritis A08.4 and Acquired hypothyroidism E03.9 [place] [address] 65128- 0481 Apr, Type 2 diabetes mellitus without complications E11.9 and Panlobular emphysema J43.1 [place] [address] 71427- 6948 Apr, Viral gastroenteritis A08.4 [place] [address] 01944- 8405 March, [place] [address] 69825- 5765 March, Viral gastroenteritis A08.4 [place] [address] 35718- 8875 Feb, Panlobular emphysema J43.1 [place] [address] 32643- 3483 Feb, Panlobular emphysema J43.1 [place] [id number] [place] [address] 05768- 3678 Feb, [place] [id number] [place] [address] 42575- 0636 Feb, [place] [id number] [place] [address] 18801- 0613 Feb, Viral gastroenteritis A08.4 [place] [id number] [place] [address] 19129- 9990 Feb, Head lice B85.0 [place] [id number] [place] [address] 92569- 3610 Feb, Medicare annual wellness visit, initial Z00.00 ; Head lice B85.0 ; Tinea corporis B35.4 and Enlarged lymph node R59.9 [place] [id number] [place] [address] 74311- 3878 Jan, Viral gastroenteritis A08.4 [place] [id number] [place] [address] 42754- 8704 Jan, [place] [id number] [place] [address] 93832- 0920 Dec, Controlled type 2 diabetes mellitus without complication, without long-term current use of insulin E11.9 [place] [id number] [place] [address] 91712- 7204 Dec, [place] [id number] [place] [address] 94612- 0145 Dec, Viral gastroenteritis A08.4 [place] [id number] [place] [address] 02402- 4408 Nov, Viral gastroenteritis A08.4 [place] [id number] [place] [address] 33755- 1163 Oct, Acute upper respiratory infection, unspecified J06.9 and Other viral agents as the cause of diseases classified elsewhere B97.89 [facility] [id number] [place] [address] 96159- 4797 Oct, Viral gastroenteritis A08.4 [facility] [id number] [place] [address] 41749- 6371 Oct, Controlled type 2 diabetes mellitus without complication, without long-term current use of insulin E11.9 ; Encounter for immunization Z23 and Acute pain of left foot M79.672 [place] [address] 89882- 6975 Sep, Viral gastroenteritis A08.4 [place] [address] 99069- 6595 Aug, Viral gastroenteritis A08.4 [place] [id number] [place] [address] 42490- 1625 Jul, Viral gastroenteritis A08.4 [facility] [id number] [place] [address] 94801 -8557 Jul, Acute nasopharyngitis (common cold) J00 [place] [address] 26515- 1106 Jun, Viral gastroenteritis A08.4 [place] [address] 97601- 7738 Jun, [place] [id number] [place] [address] 58479- 8220 Jun, Viral gastroenteritis A08.4 [place] [id number] [place] [address] 18089- 4064 May, Patellar tendinitis, left knee M76.52 [place] [id number] [place] [address] 25028- 8670 May, Viral gastroenteritis A08.4 [place] [id number] [place] [address] 91665- 2335 16 [place], 2017 Viral gastroenteritis A08.4 and Hypothyroidism, unspecified E03.9 [place] [id number] [place] [address] 75722- 6322 15 Apr, 2017 Pain in left knee M25.562 ; Acute left-sided low back pain without sciatica M54.5 and Type 2 diabetes mellitus without complications E11.9 [place] [id number] [place] [address] 75144- 1463 07 Apr, 2017 Viral gastroenteritis A08.4 [place] [id number] [place] [address] 79646- 0345 March, Viral gastroenteritis A08.4 [facility] [id number] [place] [address] 30526 -1944 Feb, Acute pain of left knee M25.562 [place] [id number] [place] [address] 79862- 6454 13 Feb, 2017 Viral gastroenteritis A08.4 [place] [id number] [place] [address] 52636- 8724 16 Jan, 2017 Viral gastroenteritis A08.4 and Controlled type 2 diabetes mellitus without complication, without long-term current use of insulin E11.9 [place] [id number] [place] [address] 80549- 9999 14 Jan, 2017 [place] [id number] [place] [address] 76554- 4020 16 Dec, 2016 Other chronic pain G89.29 ; Pain in left knee M25.562 ; Controlled type 2 diabetes mellitus without complication, without long-term current use of insulin E11.9 and Acute cystitis with hematuria N30.01 [place] [id number] [place] [address] 91494- 3122 Dec, [place] [id number] [place] [address] 74609- 5211 Nov, Type 2 diabetes mellitus without complications E11.9 [place] [id number] [place] [address] 05006- 9398 Nov, [facility] [id number] [place] [address] 56208- 8867 Oct, [facility] [id number] [place] [address] 93371- 9837 Sep, [facility] [id number] [place] [address] 77261- 3802 Aug, [place] [id number] [place] [address] 24599- 1703 Aug, [place] [id number] [place] [address] 60784- 9770 Jul, Controlled type 2 diabetes mellitus without complication, without long-term current use of insulin E11.9 ; Callus of foot L84 and URI, acute J06.9 [place] [id number] [place] [address] 27018- 5661 Jul, [place] [id number] [place] [address] 87077- 0812 Jun, Onychomycosis B35.1 and Nail ingrowing L60.0 [place] [id number] [place] [address] 93620- 8514 Jun, [place] [id number] [place] [address] 50609- 3455 Jun, Lumbar back pain with radiculopathy affecting left lower extremity M54.17 [place] [id number] [place] [address] 29672- 8762 Jun, [place] [id number] [place] [address] 83392- 1040 Jun, Other chronic pain G89.29 [place] [id number] [place] [address] 34282- 4669 08 Jun, 2016 Other chronic pain G89.29 [place] [id number] [place] [address] 79080- 8006 Jun, Type 2 diabetes mellitus without complications E11.9 [facility] [id number] [place] [address] 54916- 0892 Jun, [facility] [id number] [place] [address] 18020- 0656 Jun, Onychomycosis B35.1 ; Callus L84 and Rash R21 [facility] [id number] [place] [address] 33225- 3255 May, [facility] [id number] [place] [address] 78572- 8421 May, [facility] [id number] [place] [address] 75102- 1079 May, Type 2 diabetes mellitus without complications E11.9 [place] [id number] [place] [address] 40351- 9915 May, [facility] [id number] [place] [address] 62049- 7576 Apr, [facility] [id number] [place] [address] 63061- 3042 Apr, Type 2 diabetes mellitus without complications E11.9 ; Acquired hypothyroidism E03.9 ; Callus of foot L84 and Upper respiratory tract infection, unspecified type J06.9 [place] [address] [address]- 0146 March, [facility] [id number] [address]- 6546 Feb, [facility] [id number] [place] [address] 17868- 1928 Jan, Diabetes mellitus without mention of complication, type II or unspecified type, not stated as uncontrolled 250.00 [facility] [id number] [place] [address] 54413- 2627 Jan, [facility] [id number] [place] [address] 48086- 8937 Jan, Diabetes E11.9 and Hypothyroidism E03.9 [facility] [id number] [place] [address] 10499- 4356 Dec, Diarrhea R19.7 [facility] [id number] [place] [address] 10874- 8126 15 Dec, 2015 [facility] [id number] [place] [address] 13750- 4916 Dec, Hypothyroidism, unspecified E03.9 [facility] [id number] [place] [address] 22883- 4246 Dec, [facility] [id number] [place] [address] 22605- 8041 Dec, Hypothyroidism, unspecified E03.9 [facility] [id number] [place] [address] 66220- 8927 Dec, Diarrhea R19.7 [facility] [id number] [place] [address] 25786- 3397 Dec, Diarrhea R19.7 [facility] [id number] [place] [address] 59962- 0370 Nov, [facility] [id number] [place] [address] 71837- 9571 Nov, [facility] [id number] [place] [address] 93058- 5184 Oct, [facility] [id number] [place] [address] 35821- 1292 Sep, Postnasal drip R09.82 [facility] [id number] [place] [address] 93812- 7109 Sep, [facility] [id number] [place] [address] 12445- 0309 Sep, [facility] [id number] [place] [address] 21949- 3610 14 Aug, 2015 [facility] [id number] [place] [address] 08994- 0583 Aug, [facility] [id number] [place] [address] 68499- 3894 Jul, Hypothyroidism 244.9 [facility] [address] 93932- 4220 Jul, Diabetes mellitus without mention of complication, type II or unspecified type, not stated as uncontrolled 250.00 [facility] [id number] [place] [address] 52973- 3700 Jul, [facility] [id number] [place] [address] 04752- 4363 Jul, [facility] [id number] [place] [address] 68993- 7890 Jun, [facility] [address] 29410- 1739 May, Other chronic pain 338.29 [facility] [address] 49365- 0411 May, Other chronic pain 338.29 [facility] [id number] [place] [address] 10556- 3996 May, [facility] [id number] [place] [address] 38127- 4058 May, [facility] [id number] [place] [address] 87591- 2731 Apr, Rash 782.1 ; Hypercholesterolemia 272.0 and Hypothyroidism 244.9 [facility] [id number] [place] [address] 67389- 9481 Apr, [facility] [id number] [place] [address] 69641- 0803 Apr, [facility] [address] [place] [address]- 5065 March, [facility] [place] [facility] [address] [id number] [place] [address]- 6183 14 Feb, 2015 [facility] [place] [facility] [address] [id number] [place] [address]- 2171 13 Feb, 2015 [facility] [place] [facility] [address] [id number] [place] [address]- 2090 26 Jan, 2015 [facility] [place] [facility] [address] [id number] [place] [address]- 2660 Jan, [facility] [place] [facility] [address] [id number] [place] [address]- 0436 Jan, [facility] [place] [facility] [address] [id number] [place] [address]- 0284 Jan, [facility] [place] [facility] [address] [id number] [place] [address]- 9946 Jan, [facility] [place] [facility] [address] [id number] [place] [address]- 8177 Jan, [facility] [place] [facility] [address] [id number] [place] [address]- 1407 Jan, [facility] [place] [facility] [address] [id number] [place] [address]- 7346 Dec, [facility] [place] [facility] [address] [id number] [place] [address]- 4558 Dec, [facility] [place] [facility] [address] [id number] [place] [address]- 5553 Nov, [facility] [place] [facility] [address] [id number] [place] [address]- 6296 Nov, [facility] [place] [facility] [address] [id number] [place] [address]- 4301 Nov, [facility] [place] [facility] [address] [id number] [place] [address]- 0177 Nov, [facility] [place] [facility] [address] [id number] [place] [address]- 7176 Nov, [facility] [place] [facility] [address] [id number] [place] [address]- 9048 Nov, [facility] [place] [facility] [address] [id number] [place] [address]- 7251 Oct, [facility] [place] [facility] [address] [id number] [place] [address]- 9251 Oct, [facility] [place] [facility] [address] [id number] [place] [address]- 1488 Sep, [facility] [place] [facility] [address] [id number] [place] [address]- 4864 Sep, [facility] [place] [facility] [address] [id number] [place] [address]- 5428 Sep, [facility] [place] [facility] [address] [id number] [place] [address]- 3938 Sep, [facility] [place] [facility] [address] [id number] [place] [address]- 4661 Aug, [facility] [place] [facility] [address] [id number] [place] [address]- 0282 Aug, [facility] [place] [facility] [address] [id number] [place] [address]- 4937 Jul, [facility] [place] [facility] [address] [id number] [place] [address]- 4541 Jul, [facility] [place] [facility] [address] [id number] [place] [address]- 9725 Jun, [facility] [place] [facility] [address] [id number] [place] [address]- 7065 Jun, [facility] [place] [facility] [address] [id number] [place] [address]- 7225 Jun, [facility] [place] [facility] [address] [id number] [place] [address]- 1315 Jun, [facility] [place] [facility] [address] [id number] [place] [address]- 3443 May, [facility] [place] [facility] [address] [id number] [place] [address]- 3686 May, [facility] [place] [facility] [address] [id number] [place] [address]- 3363 May, [facility] [place] [facility] [address] [id number] [place] [address]- 5245 May, [facility] [place] [facility] [address] [id number] [place] [address]- 0130 Apr, [facility] [place] [facility] [address] [id number] [place] [address]- 0143 Apr, [facility] [place] [facility] [address] [id number] [place] [address]- 3854 March, [facility] [place] [facility] [address] [id number] [place] [address]- 0376 March, [facility] [place] [facility] [address] [id number] [place] [address]- 9436 March, [facility] [place] [facility] [address] [id number] [place] [address]- 7731 March, [facility] [place] [facility] [address] [id number] [place] [address]- 7493 March, [facility] [place] [facility] [address] [id number] [place] [address]- 1989 March, [facility] [place] [facility] [address] [id number] [place] [address]- 1841 Feb, [facility] [place] [facility] [address] [id number] [place] [address]- 6890 Feb, [facility] [place] [facility] [address] [id number] [place] [address]- 6728 Feb, [facility] [place] [facility] [address] [id number] [place] [address]- 3675 Feb, [facility] [place] [facility] [address] [id number] [place] [address]- 5376 Feb, [facility] [place] [facility] [address] [id number] [place] [address]- 6876 Feb, [facility] [place] [facility] [address] [id number] [place] [address]- 1459 Feb, [facility] [place] [facility] [address] [id number] [place] [address]- 5140 Feb, [facility] [place] [facility] [address] [id number] [place] [address]- 5273 Jan, [facility] [place] [facility] [address] [id number] [place] [address]- 4039 Jan, [facility] [place] [facility] [address] [id number] [place] [address]- 3665 Jan, [facility] [place] [facility] [address] [id number] [place] [address]- 3895 Jan, [facility] [place] [facility] [address] [id number] [place] [address]- 8438 Jan, [facility] [place] [facility] [address] [id number] [place] [address]- 2614 Jan, [facility] [place] [facility] [address] [id number] [place] [address]- 6167 Jan, [facility] [place] [facility] [address] [id number] [place] [address]- 8532 Jan, [facility] [place] [facility] [address] [id number] [place] 3647 Jan, [facility] [place] [facility] [address] [id number] [place] [address]- 1356 Dec, [facility] [place] [facility] [address] [id number] [place] [address]- 2312 Dec, [facility] [place] [facility] [address] [id number] [place] [address]- 7470 Nov, [facility] [place] [facility] [address] [id number] [place] [address]- 5167 Nov, [facility] [place] [facility] [address] [id number] [place] [address]- 7707 Nov, [facility] [place] [facility] [address] [id number] [place] [address]- 8818 Nov, [facility] [place] [facility] [address] [id number] [place] [address]- 5361 Nov, [facility] [place] [facility] [address] [id number] [place] [address]- 7635 Nov, [facility] [place] [facility] [address] [id number] [place] [address]- 9695 Oct, [facility] [place] [facility] [address] [id number] [place] [address]- 4516 Oct, [facility] [place] [facility] [address] [id number] [place] [address]- 7450 Sep, [facility] [place] [facility] [address] [id number] [place] [address]- 4704 Sep, [facility] [place] [facility] [address] [id number] [address]- 4000 Sep, [facility] [place] [facility] [address] [id number], [place] [address] Sep, [facility] [place] [facility] [address] [id number] [place] [address] Sep, [facility] [place] [facility] [address] [id number] [address] Sep, [facility] [place] [facility] [address] [id number] [place] [address] Sep, [facility] [place] [facility] [address] [id number] [place] [address] Sep, [facility] [address] [id number] [place] [address] Aug, [facility] [place] [facility] [address] [id number] [place] [address] Aug, [facility] [place] [facility] [address] [id number] [place] [address] Aug, [facility] [place] [facility] [address] [id number] [place] [address] Jul, [facility] [place] [facility] [address] [id number] [place] [address] Jul, [facility] [place] [facility] [address] [id number] [place] [address] Jul, [facility] [place] [facility] [address] [id number] [place] [address] Jun, [facility] [place] [facility] [address] [id number] [place] [address] Jun, [facility] [place] [facility] [address] [id number] [place] [address] Jun, [facility] [place] [facility] [address] [id number] [place] [address] Jun, [facility] [place] [facility] [address] [id number] [place] [address] Jun, [facility] [place] [facility] [address] [id number] [place] [address] Jun, [facility] [place] [facility] [address] [id number] [place] [address] May, [facility] [place] [facility] [address] [id number] [place] [address] May, [facility] [place] [facility] [address] [id number] [place] [address] Apr, [facility] [place] [facility] [address] [id number] [place] [address] Apr, [facility] [address] [id number] [place] [address] March, [facility] [address] [id number] [place] [address] Feb, [facility] [address] [id number] [place] [address] Feb, [facility] [address] [id number] [place] [address] 16 Feb, 2013 [facility] [address] [id number] [place] [address] Feb, [facility] [address] [id number] [place] [address] Jan, [facility] [address] [id number] [place] [address] Jan, [facility] [address] [id number] [place] [address] Jan, [facility] [address] [id number] [place] [address] Jan, [facility] [address] [address] [id number] [place] [address] Jan, [facility] [address] [id number] [place] [address] Dec, [facility] [address] [id number] [place] [address] Nov, [facility] [place] [facility] [address] [id number] [place] [address] Nov, [facility] [address] [id number] [place] [address] Oct, [facility] [address] [id number] [place] [address] Oct, [facility] [place] [facility] [address] [id number] [place] [address] Oct, [facility] [place] [facility] [address] [id number] [place] [address] Oct, [facility] [place] [facility] [address] [id number] [place] [address] Oct, [facility] [place] [facility] [address] [id number] [place] [address] Oct, [facility] [place] [facility] [address] [id number] [place] [address] Oct, [facility] [place] [facility] [address] [id number] [place] [address] Oct, [facility] [place] [facility] [address] [id number] [id number] [address] Aug, [facility] [place] [facility] [address] [id number] [place] [address] 30 Aug, 2012 [facility] [place] [facility] [address] [id number] [place] [address] Aug, [facility] [place] [facility] [address] [id number] [place] [address] Aug, [facility] [place] [facility] [address] [id number] [address] Aug, [facility] [place] [facility] [address] [id number], [place] [address] 19 Aug, 2012 [facility] [place] [facility] [address] [id number] [address] 15 Aug, 2012 [facility] [place] [facility] [address] [id number] [address] 27 Jul, 2012 [facility] [place] [facility] [address] [id number] [place] [address] 27 Jul, 2012 [facility] [place] [facility] [address] [id number] [place] [address] Jul, [facility] [place] [facility] [address] [id number] [place] [address] Jul, [facility] [place] [facility] [address] [id number] [place] [address] Jul, [facility] [address] [id number] [place] [address] Jun, [facility] [place] [facility] [address] [id number] [place] [address] Jun, [facility] [address] [id number] [place] [address]661 Jun, [facility] [place] [facility] [address] [id number] [place] [address] May, [facility] [place] [facility] [address] [id number] [place] [address] May, [facility] [address] [id number] [place] [address] May, [facility] [place] [facility] [address] [id number] [place] [address] May, [facility] [address] [id number] [place] [address] May, [facility] [place] [facility] [address] [id number] [place] [address] May, [facility] [place] [facility] [address] [id number] [place] [address] May, [facility] [place] [facility] [address] [id number] [place] [address] Apr, [facility] [place] [facility] [address] [id number] [place] [address] Apr, [facility] [place] [facility] [address] [id number] [place] [address] March, [facility] [place] [facility] [address] [id number] [place] [address] Feb, [facility] [place] [facility] [address] [id number] [place] [address] 30 Jan, 2012 [facility] [place] [facility] [address] [id number] [place] [address] Jan, [facility] [place] [facility] [address] [id number] [place] [address] Jan, [facility] [place] [facility] [address] [id number] [place] [address] Jan, [facility] [place] [facility] [address] [id number] [place] [address] Jan, [facility] [place] [facility] [address] [id number] [place] [address] Jan, [facility] [place] [facility] [address] [id number] [place] [address] Jan, [facility] [place] [facility] [address] [id number] [place] [address] Jan, [facility] [place] [facility] [address] [id number] [place] [address] Jan, [facility] [place] [facility] [address] [id number] [place] [address]- [address] Jan, [facility] [place] [facility] [address] [id number] [place] [address] Dec, [facility] [place] [facility] [address] [id number] [place] [address] Dec, [facility] [place] [facility] [address] [id number] [place] [address] 390[address] Dec, [facility] [place] [facility] [address] [id number] [place] [address]35 Dec, [facility] [place] [facility] [id number] [address] Dec, [facility] [id number] Dec, [facility] [id number] [address] Dec, [facility] [id number] [address] Dec, [facility] [id number] [address] Nov, [facility] [id number] [place] [address] Nov, [facility] [id number] [address] Nov, [facility] [id number] [place] [address] Oct, [facility] [id number], [place] [address] Oct, [facility] [id number], [place] [address] Oct, [facility] [id number], [place] [address] Oct, [facility] [id number] [id number] [address] Sep, IMMUNIZATIONS No Known Immunizations SOCIAL HISTORY Never Assessed REASON FOR VISIT Controlled Med Refill 03/29/18 PLAN OF CARE VITAL SIGNS MEDICATIONS Medication Instructions Dosage Frequency Start Date End Date Duration Status [place] 10-325 MG Orally every 6 hrs 1 tablet as needed 6h March, 28 days Active RESULTS No Results PROCEDURES [...] intraocular lens prosthesis Hospitalization History admitted to [facility] for bronchitis then went into cardiac arrest and was resuscitated. She was in the hospital for 7 days. 2012 Hospitalization History surgeries
--- OUTSIDE RECORDS SUMMARY | 2019-01-07 23:56 | XMS REPORT ---
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 Name Role Phone NALINI GOMEZ Unavailable PROBLEMS Type Condition ICD9-CM Code [id number]-OK Code Onset Dates Condition Status SNOMED Code Problem Type 2 diabetes mellitus without complications E11.9 Active 370115891 Problem Other chronic pain G89.29 Active 25993343 Problem Controlled type 2 diabetes mellitus without complication, without long -term current use of insulin E11.9 Active 739415467 Problem Panlobular emphysema J43.1 Active 8900004 Problem Hypercholesterolemia 272.0 Active 02720159 Problem Mixed hyperlipidemia E78.2 Active 451892881 Problem Urinary, incontinence, stress female N39.3 Active 17168470 Problem Acquired hypothyroidism E03.9 Active 077258514 Problem Hypothyroidism, unspecified E03.9 Active 90640316 Problem Episode of recurrent major depressive disorder, unspecified depression episode severity F33.9 Active 729970327 Problem Hypothyroidism (acquired) E03.9 Active 79982102 ALLERGIES No Information ENCOUNTERS Encounter Location Date Diagnosis [facility] [id number] [place] [address] 51585- 1085 Jun, [facility] [id number] [place] [address] 20317- 0747 Jun, [facility] [id number] [place] [address] 65359- 8738 Jun, [facility] [id number] [place] [address] 56239- 0610 May, [facility] [id number] [place] [address] 05126- 8368 May, Viral gastroenteritis A08.4 [facility] [id number] [place] [address] 08108- 0913 May, Acute diffuse otitis externa of left ear H60.312 and Acquired hypothyroidism E03.9 [facility] [address] 30304- 7641 May, Episode of recurrent major depressive disorder, unspecified depression episode severity F33.9 ; Urinary, incontinence, stress female N39.3 ; Mixed hyperlipidemia E78.2 and Hypothyroidism (acquired) E03.9 [facility] [address] 38465- 9200 May, [facility] [address] 30209- 8218 May, Viral gastroenteritis A08.4 [facility] [address] 20752- 6100 Apr, Acute diffuse otitis externa of left ear H60.312 and Hypothyroidism (acquired) E03.9 [facility] [address] 32890- 2983 Apr, Viral gastroenteritis A08.4 and Acquired hypothyroidism E03.9 [facility] [address] 58777- 2205 Apr, Type 2 diabetes mellitus without complications E11.9 and Panlobular emphysema J43.1 [facility] [address] 98882- 9099 Apr, Viral gastroenteritis A08.4 [facility] [address] 07699- 7235 March, [facility] [address] 38137- 2763 March, Viral gastroenteritis A08.4 [facility] [address] 84428- 9106 Feb, Panlobular emphysema J43.1 [facility] [address] 59061- 5828 Feb, Panlobular emphysema J43.1 [facility] [id number] [place] [address] 85108- 3432 Feb, [facility] [id number] [place] [address] 61571- 6136 Feb, [facility] [id number] [place] [address] 21265- 2934 Feb, Viral gastroenteritis A08.4 [facility] [id number] [place] [address] 70005- 2734 Feb, Head lice B85.0 [facility] [id number] [place] [address] 99269- 0680 Feb, Medicare annual wellness visit, initial Z00.00 ; Head lice B85.0 ; Tinea corporis B35.4 and Enlarged lymph node R59.9 [facility] [id number] [place] [address] 03950- 2955 Jan, Viral gastroenteritis A08.4 [facility] [id number] [place] [address] 76150- 3059 Jan, [facility] [id number] [place] [address] 49848- 1525 Dec, Controlled type 2 diabetes mellitus without complication, without long-term current use of insulin E11.9 [facility] [id number] [place] [address] 96564- 4293 Dec, [facility] [id number] [place] [address] 65527- 6713 Dec, Viral gastroenteritis A08.4 [facility] [id number] [place] [address] 34290- 8415 Nov, Viral gastroenteritis A08.4 [facility] [id number] [place] [address] 18448- 3989 Oct, Acute upper respiratory infection, unspecified J06.9 and Other viral agents as the cause of diseases classified elsewhere B97.89 [facility] [id number] [place] [address] 47114- 2146 Oct, Viral gastroenteritis A08.4 [facility] [id number] [place] [address] 21756- 2152 Oct, Controlled type 2 diabetes mellitus without complication, without long-term current use of insulin E11.9 ; Encounter for immunization Z23 and Acute pain of left foot M79.672 [facility] [address] 27661- 8111 Sep, Viral gastroenteritis A08.4 [facility] [address] 24761- 0739 Aug, Viral gastroenteritis A08.4 [facility] [id number] [place] [address] 02447- 0603 Jul, Viral gastroenteritis A08.4 [facility] [id number] [place] [address] 90303 -5439 Jul, Acute nasopharyngitis (common cold) J00 [facility] [address] 29097- 8297 Jun, Viral gastroenteritis A08.4 [facility] [address] 93134- 1543 Jun, [facility] [id number] [place] [address] 63802- 7938 Jun, Viral gastroenteritis A08.4 [facility] [id number] [place] [address] 25027- 0746 May, Patellar tendinitis, left knee M76.52 [facility] [id number] [place] [address] 61886- 5019 May, Viral gastroenteritis A08.4 [facility] [id number] [place] [address] 85139- 9938 16 [place], 2017 Viral gastroenteritis A08.4 and Hypothyroidism, unspecified E03.9 [facility] [id number] [place] [address] 55516- 1109 15 Apr, 2017 Pain in left knee M25.562 ; Acute left-sided low back pain without sciatica M54.5 and Type 2 diabetes mellitus without complications E11.9 [facility] [id number] [place] [address] 27863- 4599 07 Apr, 2017 Viral gastroenteritis A08.4 [facility] [id number] [place] [address] 16878- 7346 March, Viral gastroenteritis A08.4 [facility] [id number] [place] [address] 18065 -2368 Feb, Acute pain of left knee M25.562 [facility] [id number] [place] [address] 30821- 1087 13 Feb, 2017 Viral gastroenteritis A08.4 [facility] [id number] [place] [address] 09388- 7489 16 Jan, 2017 Viral gastroenteritis A08.4 and Controlled type 2 diabetes mellitus without complication, without long-term current use of insulin E11.9 [facility] [id number] [place] [address] 07835- 4183 14 Jan, 2017 [facility] [id number] [place] [address] 31320- 4853 16 Dec, 2016 Other chronic pain G89.29 ; Pain in left knee M25.562 ; Controlled type 2 diabetes mellitus without complication, without long-term current use of insulin E11.9 and Acute cystitis with hematuria N30.01 [facility] [id number] [place] [address] 71745- 1347 Dec, [facility] [id number] [place] [address] 70178- 3078 Nov, Type 2 diabetes mellitus without complications E11.9 [facility] [id number] [place] [address] 24702- 2057 Nov, [facility] [id number] [place] [address] 20461- 9123 Oct, [facility] [id number] [place] [address] 90336- 0764 Sep, [facility] [id number] [place] [address] 46083- 1615 Aug, [facility] [id number] [place] [address] 29609- 1595 Aug, [facility] [id number] [place] [address] 14148- 5055 Jul, Controlled type 2 diabetes mellitus without complication, without long-term current use of insulin E11.9 ; Callus of foot L84 and URI, acute J06.9 [facility] [place] [id number] [place] [address] 25763- 9108 Jul, [facility] [id number] [place] [address] 94281- 2844 Jun, Onychomycosis B35.1 and Nail ingrowing L60.0 [facility] [id number] [place] [address] 17395- 8594 Jun, [facility] [id number] [place] [address] 49307- 0291 Jun, Lumbar back pain with radiculopathy affecting left lower extremity M54.17 [facility] [id number] [place] [address] 21235- 6005 Jun, [facility] [id number] [place] [address] 75948- 7140 Jun, Other chronic pain G89.29 [facility] [id number] [place] [address] 21070- 9944 08 Jun, 2016 Other chronic pain G89.29 [facility] [place] [id number] [place] [address] 17709- 9082 Jun, Type 2 diabetes mellitus without complications E11.9 [facility] [address] [place] [address] 60547- 9599 Jun, [facility] [id number] [place] [address] 69826- 8896 Jun, Onychomycosis B35.1 ; Callus L84 and Rash R21 [facility] [id number] [place] [address] 73427- 9261 May, [facility] [id number] [place] [address] 62883- 6935 May, [facility] [id number] [place] [address] 48553- 8715 May, Type 2 diabetes mellitus without complications E11.9 [facility] [place] [id number] [place] [address] 57780- 5855 May, [facility] [id number] [place] [address] 03894- 6659 Apr, [facility] [id number] [place] [address] 08178- 4333 Apr, Type 2 diabetes mellitus without complications E11.9 ; Acquired hypothyroidism E03.9 ; Callus of foot L84 and Upper respiratory tract infection, unspecified type J06.9 [facility] [place] [address] [address]- 5784 March, [facility] [id number] [address]- 3619 Feb, [facility] [address] [place] [address] 32098- 8336 Jan, Diabetes mellitus without mention of complication, type II or unspecified type, not stated as uncontrolled 250.00 [facility] [address] [place] [address] 94288- 6881 Jan, [facility] [id number] [place] [address] 27758- 8915 Jan, Diabetes E11.9 and Hypothyroidism E03.9 [facility] [id number] [place] [address] 95786- 7256 Dec, Diarrhea R19.7 [facility] [id number] [place] [address] 17635- 5756 15 Dec, 2015 [facility] [id number] [place] [address] 18568- 0226 Dec, Hypothyroidism, unspecified E03.9 [facility] [id number] [place] [address] 22225- 2506 Dec, [facility] [id number] [place] [address] 42392- 1769 Dec, Hypothyroidism, unspecified E03.9 [facility] [id number] [place] [address] 56138- 5456 Dec, Diarrhea R19.7 [facility] [id number] [place] [address] 85037- 1846 Dec, Diarrhea R19.7 [facility] [id number] [place] [address] 20137- 5899 Nov, [facility] [id number] [place] [address] 91815- 5274 Nov, [facility] [address] [place] [address] 98789- 1825 Oct, [facility] [address] [place] [address] 13305- 5405 Sep, Postnasal drip R09.82 [facility] [id number] [place] [address] 80569- 4435 Sep, [facility] [address] [place] [address] 40209- 9293 Sep, [facility] [id number] [place] [address] 69710- 6918 14 Aug, 2015 [facility] [id number] [place] [address] 57832- 3683 Aug, [facility] [id number] [place] [address] 42103- 3503 Jul, Hypothyroidism 244.9 [facility] [address] 13164- 2322 Jul, Diabetes mellitus without mention of complication, type II or unspecified type, not stated as uncontrolled 250.00 [facility] [id number] [place] [address] 76089- 4931 Jul, [facility] [id number] [place] [address] 38731- 8593 Jul, [facility] [id number] [place] [address] 10126- 6720 Jun, [facility] [address] 52318- 2278 May, Other chronic pain 338.29 [facility] [address] 09384- 4329 May, Other chronic pain 338.29 [facility] [id number] [place] [address] 22899- 7947 May, [facility] [id number] [place] [address] 47937- 9130 May, [facility] [id number] [place] [address] 60283- 0386 Apr, Rash 782.1 ; Hypercholesterolemia 272.0 and Hypothyroidism 244.9 [facility] [id number] [place] [address] 42437- 2712 Apr, [facility] [id number] [place] [address] 66197- 5821 Apr, [facility] [address] [place] [address]- 9830 March, [facility] [place] [facility] [address] [id number] [place] [address]- 4999 14 Feb, 2015 [facility] [place] [facility] [address] [id number] [place] [address]- 9114 13 Feb, 2015 [facility] [place] [facility] [address] [id number] [place] [address]- 1255 26 Jan, 2015 [facility] [place] [facility] [address] [id number] [place] [address]- 2607 Jan, [facility] [place] [facility] [address] [id number] [place] [address]- 3485 Jan, [facility] [place] [facility] [address] [id number] [place] [address]- 6256 Jan, [facility] [place] [facility] [address] [id number] [place] [address]- 3569 Jan, [facility] [place] [facility] [address] [id number] [place] [address]- 2039 Jan, [facility] [place] [facility] [address] [id number] [place] [address]- 5152 Jan, [facility] [place] [facility] [address] [id number] [place] [address]- 4777 Dec, [facility] [place] [facility] [address] [id number] [place] [address]- 0300 Dec, [facility] [place] [facility] [address] [id number] [place] [address]- 6185 Nov, [facility] [place] [facility] [address] [id number] [place] [address]- 1515 Nov, [facility] [place] [facility] [address] [id number] [place] [address]- 4229 Nov, [facility] [place] [facility] [address] [id number] [place] [address]- 4373 Nov, [facility] [place] [facility] [address] [id number] [place] [address]- 9793 Nov, [facility] [place] [facility] [address] [id number] [place] [address]- 1055 Nov, [facility] [place] [facility] [address] [id number] [place] [address]- 6263 Oct, [facility] [place] [facility] [address] [id number] [place] [address]- 3308 Oct, [facility] [place] [facility] [address] [id number] [place] [address]- 5562 Sep, [facility] [place] [facility] [address] [id number] [place] [address]- 9479 Sep, [facility] [place] [facility] [address] [id number] [place] [address]- 7740 Sep, [facility] [place] [facility] [address] [id number] [place] [address]- 8027 Sep, [facility] [place] [facility] [address] [id number] [place] [address]- 4536 Aug, [facility] [place] [facility] [address] [id number] [place] [address]- 4920 Aug, [facility] [place] [facility] [address] [id number] [place] [address]- 3321 Jul, [facility] [place] [facility] [address] [id number] [place] [address]- 0550 Jul, [facility] [place] [facility] [address] [id number] [place] [address]- 6313 Jun, [facility] [place] [facility] [address] [id number] [place] [address]- 9492 Jun, [facility] [place] [facility] [address] [id number] [place] [address]- 8257 Jun, [facility] [place] [facility] [address] [id number] [place] [address]- 3022 Jun, [facility] [place] [facility] [address] [id number] [place] [address]- 7401 May, [facility] [place] [facility] [address] [id number] [place] [address]- 1699 May, [facility] [place] [facility] [address] [id number] [place] [address]- 7420 May, [facility] [place] [facility] [address] [id number] [place] [address]- 3315 May, [facility] [place] [facility] [address] [id number] [place] [address]- 0705 Apr, [facility] [place] [facility] [address] [id number] [place] [address]- 9915 Apr, [facility] [place] [facility] [address] [id number] [place] [address]- 4807 March, [facility] [place] [facility] [address] [id number] [place] [address]- 2129 March, [facility] [place] [facility] [address] [id number] [place] [address]- 5260 March, [facility] [place] [facility] [address] [id number] [place] [address]- 0060 March, [facility] [place] [facility] [address] [id number] [place] [address]- 8426 March, [facility] [place] [facility] [address] [id number] [place] [address]- 5463 March, [facility] [place] [facility] [address] [id number] [place] [address]- 5696 Feb, [facility] [place] [facility] [address] [id number] [place] [address]- 0370 Feb, [facility] [place] [facility] [address] [id number] [place] [address]- 3641 Feb, [facility] [place] [facility] [address] [id number] [place] [address]- 5228 Feb, [facility] [place] [facility] [address] [id number] [place] [address]- 4866 Feb, [facility] [place] [facility] [address] [id number] [place] [address]- 6816 Feb, [facility] [place] [facility] [address] [id number] [place] [address]- 9350 Feb, [facility] [place] [facility] [address] [id number] [place] [address]- 0070 Feb, [facility] [place] [facility] [address] [id number] [place] [address]- 9018 Jan, [facility] [place] [facility] [address] [id number] [place] [address]- 0877 Jan, [facility] [place] [facility] [address] [id number] [place] [address]- 7646 Jan, [facility] [place] [facility] [address] [id number] [place] [address]- 9185 Jan, [facility] [place] [facility] [address] [id number] [place] [address]- 5993 Jan, [facility] [place] [facility] [address] [id number] [place] [address]- 6772 Jan, [facility] [place] [facility] [address] [id number] [place] [address]- 7045 Jan, [facility] [place] [facility] [address] [id number] [place] [address]- 8126 Jan, [facility] [place] [facility] [address] [id number] [place] 1463 Jan, [facility] [place] [facility] [address] [id number] [place] [address] Dec, [facility] [place] [facility] [address] [id number] [place] [address] Dec, [facility] [place] [facility] [address] [id number] [place] [address] Nov, [facility] [place] [facility] [address] [id number] [place] [address] Nov, [facility] [place] [facility] [address] [id number] [place] [address] Nov, [facility] [place] [facility] [address] [id number] [place] [address] Nov, [facility] [place] [facility] [address] [id number] [place] [address] Nov, [facility] [place] [facility] [address] [id number] [place] [address] Nov, [facility] [place] [facility] [address] [id number] [place] [address] Oct, [facility] [place] [facility] [address] [id number] [place] [address] Oct, [facility] [place] [facility] [address] [id number] [place] [address] Sep, [facility] [place] [facility] [address] [id number] [place] [address] Sep, [facility] [place] [facility] [address] [id number], [place] [address] Sep, [facility] [place] [facility] [address] [id number], [place] [address] Sep, [facility] [place] [facility] [address] [id number] [place] [address] Sep, [facility] [place] [facility] [address] [id number], [place] [address] Sep, [facility] [place] [facility] [address] [id number] [place] [address] Sep, [facility] [place] [facility] [address] [id number] [place] [address] Sep, [facility] [address] [id number] [place] [address] Aug, [facility] [place] [facility] [address] [id number] [place] [address] Aug, [facility] [place] [facility] [address] [id number] [place] [address] Aug, [facility] [place] [facility] [address] [id number] [place] [address] Jul, [facility] [place] [facility] [address] [id number] [place] [address] Jul, [facility] [place] [facility] [address] [id number] [place] [address] Jul, [facility] [place] [facility] [address] [id number] [place] [address] Jun, [facility] [place] [facility] [address] [id number] [place] [address] Jun, [facility] [place] [facility] [address] [id number] [place] [address] Jun, [facility] [place] [facility] [address] [id number] [place] [address] Jun, [facility] [place] [facility] [address] [id number] [place] [address] Jun, [facility] [place] [facility] [address] [id number] [place] [address] Jun, [facility] [place] [facility] [address] [id number] [place] [address] May, [facility] [place] [facility] [address] [id number] [place] [address] May, [facility] [place] [facility] [address] [id number] [place] [address] Apr, [facility] [place] [facility] [address] [id number] [place] [address] Apr, [facility] [address] [id number] [place] [address] March, [facility] [address] [id number] [place] [address] Feb, [facility] [address] [id number] [place] [address] Feb, [facility] [address] [id number] [place] [address] 16 Feb, 2013 [facility] [address] [id number] [place] [address] Feb, [facility] [address] [id number] [place] [address] Jan, [facility] [address] [id number] [place] [address] Jan, [facility] [address] [id number] [place] [address] Jan, [facility] [address] [id number] [place] [address] Jan, [facility] [address] [id number] [place] [address] Jan, [facility] [address] [id number] [place] [address] Dec, [facility] [address] [id number] [place] [address] Nov, [facility] [place] [facility] [address] [id number] [place] [address] Nov, [facility] [address] [id number] [place] [address] Oct, [facility] [address] [id number] [place] [address] Oct, [facility] [place] [facility] [address] [id number] [place] [address] Oct, [facility] [place] [facility] [address] [id number] [place] [address] Oct, [facility] [place] [facility] [address] [id number] [place] [address] Oct, [facility] [place] [facility] [address] [id number] [place] [address] Oct, [facility] [place] [facility] [address] [id number] [place] [address] Oct, [facility] [place] [facility] [address] [id number] [place] [address] Oct, [facility] [place] [facility] [address] [id number] [place] [address] Aug, [facility] [place] [facility] [address] [id number] [place] [address] 30 Aug, 2012 [facility] [place] [facility] [address] [id number] [place] [address] Aug, [facility] [place] [facility] [address] [id number] [place] [address] Aug, [facility] [place] [facility] [address] [id number], [place] [address] Aug, [facility] [place] [facility] [address] [id number], [place] [address] 19 Aug, 2012 [facility] [place] [facility] [address] [id number], [place] [address] 15 Aug, 2012 [facility] [place] [facility] [address] [id number] [address] 27 Jul, 2012 [facility] [place] [facility] [address] [id number] [place] [address] 27 Jul, 2012 [facility] [place] [facility] [address] [id number] [place] [address] Jul, [facility] [place] [facility] [address] [id number] [place] [address]85 Jul, [facility] [place] [facility] [address] [id number] [place] [address] Jul, [facility] [address] [id number] [place] [address] Jun, [facility] [place] [facility] [address] [id number] [place] [address] Jun, [facility] [address] [id number] [place] [address] Jun, [facility] [place] [facility] [address] [id number] [place] [address] May, [facility] [place] [facility] [address] [id number] [place] [address] May, [facility] [address] [id number] [place] [address] May, [facility] [place] [facility] [address] [id number] [place] [address] May, [facility] [address] [id number] [place] [address] May, [facility] [place] [facility] [address] [id number] [place] [address] May, [facility] [place] [facility] [address] [id number] [place] [address] May, [facility] [place] [facility] [address] [id number] [place] [address] Apr, [facility] [place] [facility] [address] [id number] [place] [address] Apr, [facility] [place] [facility] [address] [id number] [place] [address] March, [facility] [place] [facility] [address] [id number] [place] [address] Feb, [facility] [place] [facility] [address] [id number] [place] [address] 30 Jan, 2012 [facility] [place] [facility] [address] [id number] [place] [address] 135[address] Jan, [facility] [place] [facility] [address] [id number] [place] [address] Jan, [facility] [place] [facility] [address] [id number] [place] [address]- [address] Jan, [facility] [place] [facility] [address] [id number] [place] [address] Jan, [facility] [place] [facility] [address] [id number] [place] [address] Jan, [facility] [place] [facility] [address] [id number] [place] [address] 09[address] Jan, [facility] [place] [facility] [address] [id number] [place] [address] Jan, [facility] [place] [facility] [address] [id number] [place] [address] 97[address] Jan, [facility] [place] [facility] [address] [id number] [place] [address] Jan, [facility] [place] [facility] [address] [id number] [place] [address] 2010 Dec, [facility] [place] [facility] [address] [id number] [place] [address] Dec, [facility] [place] [facility] [address] [id number] [place] [address] 9518 Dec, [facility] [place] [facility] [address] [id number] [place] [address] Dec, [facility] [place] [facility] [id number], [place] [address] Dec, [facility] [id number], [place] [address] Dec, [facility] [id number], [place] [address] Dec, [facility] [id number] [place] [address] Dec, [facility] [id number] [place] [address] Nov, [facility] [id number] [place] [address]- [address] Nov, [facility] [id number] [place] [address]- [address] Nov, [facility] [id number] [place] [address]- [address] Oct, [facility] [id number], [place] [address] Oct, [facility] [id number], [place] [address] Oct, [facility] [id number], [place] [address] Oct, [facility] [id number], [place] [address] Sep, IMMUNIZATIONS No Known Immunizations SOCIAL HISTORY Never Assessed REASON FOR VISIT proair note PLAN OF CARE VITAL SIGNS MEDICATIONS Medication Instructions Dosage Frequency Start Date End Date Duration Status Ventolin HFA 108 (90 Base) MCG/ACT Inhalation every 6 hrs 2 puffs as needed 6h Feb, 30 days Active RESULTS No Results PROCEDURES [...] intraocular lens prosthesis Hospitalization History admitted to [facility] for bronchitis then went into cardiac arrest and was resuscitated. She was in the hospital for 7 days. 2012 Hospitalization History surgeries
--- OUTSIDE RECORDS SUMMARY | 2019-01-07 23:57 | XMS REPORT ---
Author Author NALINI GOMEZ Organization [facility] Address [address] [place] [address] Care Team Providers Care Sand Blaster Name Role Phone NALINI GOMEZ Unavailable PROBLEMS Type Condition ICD9-CM Code YFW11-WH Code Onset Dates Condition Status SNOMED Code Problem Type 2 diabetes mellitus without complications E11.9 Active 607637109 Problem Other chronic pain G89.29 Active 68288746 Problem Controlled type 2 diabetes mellitus without complication, without long -term current use of insulin E11.9 Active 858927162 Problem Panlobular emphysema J43.1 Active 9212911 Problem Hypercholesterolemia 272.0 Active 10701141 Problem Mixed hyperlipidemia E78.2 Active 348391282 Problem Urinary, incontinence, stress female N39.3 Active 08491379 Problem Acquired hypothyroidism E03.9 Active 195922876 Problem Hypothyroidism, unspecified E03.9 Active 90952275 Problem Episode of recurrent major depressive disorder, unspecified depression episode severity F33.9 Active 041070364 Problem Hypothyroidism (acquired) E03.9 Active 63381167 ALLERGIES Substance Reaction Event Type Date Status Rocephin Unknown Drug Allergy Feb, Active Penicillin V Potassium Unknown Drug Allergy Feb, Active Nsaids (non-steroidal Anti-inflammatory Drug) renal insuffiency Non Drug Allergy Feb, Active ENCOUNTERS Encounter Location Date Diagnosis [facility] [address] [facility] [id number] [address] Jun, [facility] [id number] [address] 3060 Jun, [facility] [id number] [address] 0488 Jun, [facility] [id number] [address] 7257 May, [facility] [id number] [place] [address] 44161- 4876 May, Viral gastroenteritis A08.4 [place] [address] 52593- 0816 May, Acute diffuse otitis externa of left ear H60.312 and Acquired hypothyroidism E03.9 [place] [address] 17620- 2215 May, Episode of recurrent major depressive disorder, unspecified depression episode severity F33.9 ; Urinary, incontinence, stress female N39.3 ; Mixed hyperlipidemia E78.2 and Hypothyroidism (acquired) E03.9 [place] [address] 29094- 0195 May, [place] [address] 13996- 0998 May, Viral gastroenteritis A08.4 [place] [address] 50145- 3440 Apr, Acute diffuse otitis externa of left ear H60.312 and Hypothyroidism (acquired) E03.9 [place] [address] 18389- 8360 Apr, Viral gastroenteritis A08.4 and Acquired hypothyroidism E03.9 [place] [id number] [place] [address] 80650- 9964 Apr, Type 2 diabetes mellitus without complications E11.9 and Panlobular emphysema J43.1 [place] [id number] [place] [address] 61706- 4820 Apr, Viral gastroenteritis A08.4 [place] [address] 51814- 2627 March, [place] [id number] [place] [address] 63225- 0506 March, Viral gastroenteritis A08.4 [place] [address] 62319- 0684 Feb, Panlobular emphysema J43.1 [place] [id number] [place] [address] 23453- 9931 Feb, Panlobular emphysema J43.1 [facility] [id number] [place] [address] 71373- 3044 Feb, [place] [address] 43087- 6367 Feb, [place] [id number] [place] [address] 54376- 3899 Feb, Viral gastroenteritis A08.4 [place] [address] 76873- 0772 Feb, Head lice B85.0 [place] [address] 67185- 7558 Feb, Medicare annual wellness visit, initial Z00.00 ; Head lice B85.0 ; Tinea corporis B35.4 and Enlarged lymph node R59.9 [place] [id number] [place] [address] 82628- 4943 Jan, Viral gastroenteritis A08.4 [place] [id number] [place] [address] 52553- 5970 Jan, [place] [id number] [place] [address] 17409- 8497 Dec, Controlled type 2 diabetes mellitus without complication, without long-term current use of insulin E11.9 [place] [id number] [place] [address] 80314- 7378 Dec, [place] [id number] [place] [address] 55491- 9138 Dec, Viral gastroenteritis A08.4 [place] [id number] [place] [address] 95177- 9500 Nov, Viral gastroenteritis A08.4 [place] [id number] [place] [address] 83225- 0385 Oct, Acute upper respiratory infection, unspecified J06.9 and Other viral agents as the cause of diseases classified elsewhere B97.89 [place] [id number] [place] [address] 23415- 2708 Oct, Viral gastroenteritis A08.4 [place] [id number] [place] [address] 17303- 9617 Oct, Encounter for immunization Z23 ; Controlled type 2 diabetes mellitus without complication, without long-term current use of insulin E11.9 and Acute pain of left foot M79.672 [place] [id number] [place] [address] 66436- 4083 Sep, Viral gastroenteritis A08.4 [place] [id number] [place] [address] 43660- 4315 Aug, Viral gastroenteritis A08.4 [place] [id number] [place] [address] 45200- 2073 Jul, Viral gastroenteritis A08.4 [facility] [id number] [place] [address] 81863 -2662 Jul, Acute nasopharyngitis (common cold) J00 [place] [id number] [place] [address] 26859- 1616 Jun, Viral gastroenteritis A08.4 [place] [id number] [place] [address] 83811- 3154 Jun, [place] [id number] [place] [address] 48436- 7053 Jun, Viral gastroenteritis A08.4 [place] [id number] [place] [address] 51676- 5036 May, Patellar tendinitis, left knee M76.52 [place] [address] 84761- 6106 05 May, 2017 Viral gastroenteritis A08.4 [facility] [address] [address]- 5755 16 Apr, 2017 Viral gastroenteritis A08.4 and Hypothyroidism, unspecified E03.9 [place] [address] [place] [address] 04638- 0312 15 Apr, 2017 Pain in left knee M25.562 ; Acute left-sided low back pain without sciatica M54.5 and Type 2 diabetes mellitus without complications E11.9 [place] [id number] [place] [address] 68355- 0317 07 Apr, 2017 Viral gastroenteritis A08.4 [place] [id number] [place] [address] 37895- 2062 10 Mar, 2017 Viral gastroenteritis A08.4 [facility] [address] [place] [address] 69320 -8196 Feb, Acute pain of left knee M25.562 [place] [id number] [place] [address] 28070- 6619 13 Feb, 2017 Viral gastroenteritis A08.4 [place] [id number] [place] [address] 92589- 7051 16 Jan, 2017 Viral gastroenteritis A08.4 and Controlled type 2 diabetes mellitus without complication, without long-term current use of insulin E11.9 [place] [address] [place] [address] 77589- 6699 14 Jan, 2017 [place] [address] [place] [address] 12295- 8283 16 Dec, 2016 Other chronic pain G89.29 ; Pain in left knee M25.562 ; Controlled type 2 diabetes mellitus without complication, without long-term current use of insulin E11.9 and Acute cystitis with hematuria N30.01 [place] [address] [address]- 2040 01 Dec, 2016 [place] [id number] [place] [address] 10280- 1509 Nov, Type 2 diabetes mellitus without complications E11.9 [facility] [id number] [place] [address] 36834- 2022 Nov, [facility] [id number] [place] [address] 98848- 4689 Oct, [facility] [id number] [place] [address] 37414- 6491 Sep, [facility] [id number] [place] [address] 84317- 8668 Aug, [facility] [address] 65313- 1401 Aug, [facility] [id number] [place] [address] 70333- 5187 Jul, Controlled type 2 diabetes mellitus without complication, without long-term current use of insulin E11.9 ; Callus of foot L84 and URI, acute J06.9 [facility] [id number] [place] [address] 29074- 2860 Jul, [facility] [id number] [place] [address] 47053- 4879 Jun, Onychomycosis B35.1 and Nail ingrowing L60.0 [place] [id number] [place] [address] 88422- 7907 Jun, [facility] [id number] [place] [address] 62223- 6076 Jun, Lumbar back pain with radiculopathy affecting left lower extremity M54.17 [facility] [id number] [place] [address] 73025- 0830 Jun, [facility] [id number] [place] [address] 53655- 3259 Jun, Other chronic pain G89.29 [facility] [address] [place] [address]- 5578 Jun, Other chronic pain G89.29 [facility] [id number] [place] [address] 45709- 8222 Jun, Type 2 diabetes mellitus without complications E11.9 [facility] [id number] [place] [address] 01577- 8435 Jun, [facility] [id number] [place] [address] 25012- 8835 Jun, Onychomycosis B35.1 ; Callus L84 and Rash R21 [facility] [id number] [place] [address] 29321- 3602 May, [facility] [id number] [place] [address] 99825- 8738 May, [facility] [id number] [place] [address] 92310- 7409 May, Type 2 diabetes mellitus without complications E11.9 [facility] [address] [address]- 4315 May, [facility] [id number] [place] [address] 24827- 7823 Apr, [facility] [address] [place] [address] 83079- 5642 Apr, Type 2 diabetes mellitus without complications E11.9 ; Acquired hypothyroidism E03.9 ; Callus of foot L84 and Upper respiratory tract infection, unspecified type J06.9 [facility] [address] [address]- 1675 March, [facility] [id number] [place] [address] 75006- 4485 Feb, [facility] [address] [address]- 7305 Jan, Diabetes mellitus without mention of complication, type II or unspecified type, not stated as uncontrolled 250.00 [facility] [address] [address] 2543 Jan, [facility] [id number] [place] [address] 12467 2546 Jan, Diabetes E11.9 and Hypothyroidism E03.9 [facility] [id number] [place] [address] 97351 2546 Dec, Diarrhea R19.7 [facility] [id number] [place] [address] 52708 2546 Dec, [facility] [id number] [place] [address] 81405 2546 Dec, Hypothyroidism, unspecified E03.9 [facility] [id number] [place] [address] 16139 2546 Dec, [facility] [id number] [place] [address] 52204 2545 Dec, Hypothyroidism, unspecified E03.9 [facility] [address] [place] [address] 19560 2542 04 Dec, 2015 Diarrhea R19.7 [facility] [id number] [place] [address] 54886 2546 Dec, Diarrhea R19.7 [facility] [address] [place] [address] 01447 2546 Nov, [facility] [address] [address] 2546 Nov, [facility] [address] [place] [address] 92945- 4746 Oct, [facility] [id number] [place] [address] 49573- 8715 Sep, Postnasal drip R09.82 [facility] [address] [place] [address] 67003- 2544 Sep, [facility] [address] [address]- 0667 Sep, [facility] [id number] [place] [address] 88392- 0566 Aug, [facility] [id number] [place] [address] 11821- 1626 Aug, [facility] [id number] [place] [address] 49310- 6886 Jul, Hypothyroidism 244.9 [facility] [id number] [place] [address] 17709- 6984 Jul, Diabetes mellitus without mention of complication, type II or unspecified type, not stated as uncontrolled 250.00 [facility] [id number] [place] [address] 72937- 8186 Jul, [facility] [id number] [place] [address] 616693- 0627 Jul, [facility] [id number] [place] [address] 71511- 9451 Jun, [facility] [id number] [place] [address] 34694- 9895 May, Other chronic pain 338.29 [facility] [id number] [place] [address] 68938- 9966 May, Other chronic pain 338.29 [facility] [address] [place] [address] 11544- 7106 May, [facility] [id number] [place] [address] 34508- 5000 May, [facility] [id number] [place] [address] 49502- 1348 Apr, Rash 782.1 ; Hypercholesterolemia 272.0 and Hypothyroidism 244.9 [facility] [id number] [place] [address] 87600- 2460 Apr, [facility] [place] [facility] [address] [id number] [place] [address]- 4801 Apr, [facility] [place] [facility] [address] [id number] [place] [address]- 3640 March, [facility] [place] [facility] [address] [id number] [place] [address]- 1222 Feb, [facility] [place] [facility] [address] [id number] [place] [address]- 6189 Feb, [facility] [place] [facility] [address] [id number] [place] [address]- 5216 Jan, [facility] [place] [facility] [address] [id number] [place] [address]- 4861 Jan, [facility] [place] [facility] [address] [id number] [place] [address]- 8567 Jan, [facility] [place] [facility] [address] [id number] [place] [address]- 2296 Jan, [facility] [place] [facility] [address] [id number] [place] [address]- 7630 Jan, [facility] [place] [facility] [address] [id number] [place] [address]- 3412 Jan, [facility] [place] [facility] [address] [id number] [place] [address]- 9571 Jan, [facility] [place] [facility] [address] [id number] [place] [address]- 9949 Dec, [facility] [place] [facility] [address] [id number] [place] [address]- 5028 Dec, [facility] [place] [facility] [address] [id number] [place] [address]- 2666 Nov, [facility] [place] [facility] [address] [id number] [place] [address]- 0134 Nov, [facility] [place] [facility] [address] [id number] [place] [address]- 6231 Nov, [facility] [place] [facility] [address] [id number] [place] [address]- 6682 Nov, [facility] [place] [facility] [address] [id number] [place] [address]- 3097 Nov, [facility] [place] [facility] [address] [id number] [place] [address]- 1504 Nov, [facility] [place] [facility] [address] [id number] [place] [address]- 2483 Oct, [facility] [place] [facility] [address] [id number] [place] [address]- 7649 Oct, [facility] [place] [facility] [address] [id number] [place] [address]- 7509 Sep, [facility] [place] [facility] [address] [id number] [place] [address]- 6576 Sep, [facility] [place] [facility] [address] [id number] [place] [address]- 3808 Sep, [facility] [place] [facility] [address] [id number] [place] [address]- 0053 Sep, [facility] [place] [facility] [address] [id number] [place] [address]- 2258 Aug, [facility] [place] [facility] [address] [id number] [place] [address]- 7847 Aug, [facility] [place] [facility] [address] [id number] [place] [address]- 0280 Jul, [facility] [place] [facility] [address] [id number] [place] [address]- 1827 Jul, [facility] [place] [facility] [address] [id number] [place] [address]- 2288 Jun, [facility] [place] [facility] [address] [id number] [place] [address]- 3893 Jun, [facility] [place] [facility] [address] [id number] [place] [address]- 5236 Jun, [facility] [place] [facility] [address] [id number] [place] [address]- 3593 Jun, [facility] [place] [facility] [address] [id number] [place] [address]- 4506 May, [facility] [place] [facility] [address] [id number] [place] [address]- 8629 May, [facility] [place] [facility] [address] [id number] [place] [address]- 6099 May, [facility] [place] [facility] [address] [id number] [place] [address]- 7356 May, [facility] [place] [facility] [address] [id number] [place] [address]- 6197 Apr, [facility] [place] [facility] [address] [id number] [place] [address]- 4812 Apr, [facility] [place] [facility] [address] [id number] [place] [address]- 2220 March, [facility] [place] [facility] [address] [id number] [place] [address]- 8257 March, [facility] [place] [facility] [address] [id number] [place] [address]- 4030 March, [facility] [place] [facility] [address] [id number] [place] [address]- 5237 March, [facility] [place] [facility] [address] [id number] [place] [address]- 9156 March, [facility] [place] [facility] [address] [id number] [place] [address]- 2003 March, [facility] [place] [facility] [address] [id number] [place] [address]- 5470 Feb, [facility] [place] [facility] [address] [id number] [place] [address]- 5849 Feb, [facility] [place] [facility] [address] [id number] [place] [address]- 9343 Feb, [facility] [place] [facility] [address] [id number] [place] [address]- 8138 Feb, [facility] [place] [facility] [address] [id number] [place] [address]- 2825 Feb, [facility] [place] [facility] [address] [id number] [place] [address]- 1865 Feb, [facility] [place] [facility] [address] [id number] [place] [address]- 5332 Feb, [facility] [place] [facility] [address] [id number] [place] [address]- 2407 Feb, [facility] [place] [facility] [address] [id number] [place] [address]- 5677 Jan, [facility] [place] [facility] [address] [id number] [place] [address]- 9817 Jan, [facility] [place] [facility] [address] [id number] [place] [address]- 7707 Jan, [facility] [place] [facility] [address] [id number] [place] [address]- 9070 Jan, [facility] [place] [facility] [address] [id number] [place] [address]- 0865 Jan, [facility] [place] [facility] [address] [id number] [place] [address]- 5809 Jan, [facility] [place] [facility] [address] [id number] [place] [address]- 4688 Jan, [facility] [place] [facility] [address] [id number] [place] [address]- 9094 10 Jan, 2014 [facility] [place] [facility] [address] [id number] [place] [address]- 6590 10 Jan, 2014 [facility] [place] [facility] [address] [id number] [place] [address]- 7732 Dec, [facility] [address] [id number] [place] [address]- 7598 Dec, [facility] [address] [id number] [place] [address] Nov, [facility] [address] [id number] [place] [address] Nov, [facility] [address] [id number] [place] [address] Nov, [facility] [address] [id number] [place] [address] Nov, [facility] [address] [id number] [place] [address] Nov, [facility] [address] [id number] [place] [address] Nov, [facility] [address] [id number] [place] [address] Oct, [facility] [address] [id number] [place] [address] Oct, [facility] [address] [id number] [place] [address] Sep, [facility] [place] [facility] [address] [id number] [place] [address] Sep, [facility] [address] [id number] [place] [address] Sep, [facility] [place] [facility] [address] [id number] [place] [address] Sep, [facility] [place] [facility] [address] [id number] [place] [address] Sep, [facility] [place] [facility] [address] [id number] [place] [address] Sep, [facility] [place] [facility] [address] [id number] [place] [address] Sep, [facility] [place] [facility] [address] [id number] [place] [address] Sep, [facility] [place] [facility] [address] [id number] [place] [address] Aug, [facility] [place] [facility] [address] [id number] [place] [address] Aug, [facility] [place] [facility] [address] [id number] [place] [address] Aug, [facility] [place] [facility] [address] [id number] [place] [address] Jul, [facility] [place] [facility] [address] [id number] [place] [address] Jul, [facility] [place] [facility] [address] [id number] [place] [address] Jul, [facility] [place] [facility] [address] [id number] [place] [address] Jun, [facility] [place] [facility] [address] [id number] [place] [address] Jun, [facility] [place] [facility] [address] [id number] [place] [address] Jun, [facility] [place] [facility] [address] [id number] [place] [address] Jun, [facility] [place] [facility] [address] [id number] [place] [address] Jun, [facility] [place] [facility] [address] [id number] [place] [address] Jun, [facility] [place] [facility] [address] [id number] [place] [address] May, [facility] [place] [facility] [address] [id number] [place] [address] May, [facility] [address] [id number] [place] [address] Apr, [facility] [address] [id number] [place] [address] Apr, [facility] [address] [id number] [place] [address] March, [facility] [address] [id number] [place] [address] Feb, [facility] [address] [id number] [place] [address] Feb, [facility] [address] [id number] [place] [address] Feb, [facility] [address] [id number] [place] [address] Feb, [facility] [address] [id number] [place] [address] Jan, [facility] [address] [id number] [place] [address] Jan, [facility] [address] [id number] [place] [address] Jan, [facility] [address] [id number] [place] [address] Jan, [facility] [address] [id number] [place] [address] Jan, [facility] [address] [id number] [place] [address] Dec, [facility] [address] [id number] [place] [address] Nov, [facility] [address] [id number] [place] [address] Nov, [facility] [place] [facility] [address] [id number] [place] [address]228 Oct, [facility] [place] [facility] [address] [id number] [place] [address] Oct, [facility] [place] [facility] [address] [id number] [place] [address] Oct, [facility] [place] [facility] [address] [id number] [place] [address] Oct, [facility] [place] [facility] [address] [id number] [place] [address] Oct, [facility] [place] [facility] [address] [id number] [place] [address] Oct, [facility] [place] [facility] [address] [id number] [place] [address] 114[address] Oct, [facility] [place] [facility] [address] [id number] [place] [address] Oct, [facility] [place] [facility] [address] [id number] [place] [address] Aug, [facility] [place] [facility] [address] [id number] [place] [address] Aug, [facility] [place] [facility] [address] [id number] [place] [address] 4[address] Aug, [facility] [place] [facility] [address] [id number] [place] [address]- [address]646 Aug, [facility] [place] [facility] [address] [id number] [place] [address]- 1871 Aug, [facility] [place] [facility] [address] [id number] [place] [address] Aug, [facility] [place] [facility] [address] [id number] [place] [address] 15 Aug, 2012 [facility] [place] [facility] [address] [id number] [place] [address] Jul, [facility] [place] [facility] [address] [id number] [place] [address] Jul, [facility] [place] [facility] [address] [id number] [place] [address]66 Jul, [facility] [place] [facility] [address] [id number] [place] [address]226 Jul, [facility] [place] [facility] [address] [id number] [place] [address] Jul, [facility] [place] [facility] [address] [id number] [place] [address] 3435 Jun, [facility] [place] [facility] [address] [id number] [place] [address] 46[address] Jun, [facility] [place] [facility] [address] [id number] [place] [address] 8510 Jun, [facility] [place] [facility] [address] [id number] [place] [address] 9136 May, [facility] [place] [facility] [address] [id number] [place] [address]- 1071 May, [facility] [place] [facility] [address] [id number] [place] [address] May, [facility] [place] [facility] [address] [id number] [place] [address] 9963 May, [facility] [place] [facility] [address] [id number] [place] [address]- 2322 May, [facility] [place] [facility] [address] [id number] [place] [address]- 8256 May, [facility] [place] [facility] [address] [id number] [place] [address]- 9742 May, [facility] [place] [facility] [address] [id number] [place] [address] 8596 Apr, [facility] [place] [facility] [address] [id number] [place] [address]- 8613 Apr, [facility] [address] [id number] [place] [address] 3576 March, [facility] [place] [facility] [address] [id number] [place] [address] 4[address] Feb, [facility] [place] [facility] [address] [id number] [place] [address]- [address]26 30 Jan, 2012 [facility] [place] [facility] [address] [id number] [place] [address]- 5629 Jan, [facility] [place] [facility] [address] [id number] [place] [address] 7216 Jan, [facility] [place] [facility] [address] [id number] [place] [address]- [address]126 Jan, [facility] [place] [facility] [address] [id number] [place] [address]- 4431 Jan, [facility] [place] [facility] [address] [id number] [place] [address]- 5179 Jan, [facility] [place] [facility] [address] [id number] [place] [address]- 0116 Jan, [facility] [place] [facility] [address] [id number] [place] [address]- 9838 Jan, [facility] [place] [facility] [address] [id number] [place] [address]- 5976 Jan, [facility] [place] [facility] [address] [id number] [place] [address]- 8901 Jan, [facility] [place] [facility] [address] [id number] [place] [address]- 5906 Dec, [facility] [place] [facility] [address] [id number] [place] [address] 8706 Dec, [facility] [place] [facility] [address] [id number] [place] [address] Dec, [facility] [id number] [address] Dec, [facility] [id number] [address] Dec, [facility] [id number] [address] Dec, [facility] [id number] [place] [address]- [address]99 Dec, [facility] [id number] [place] [address]- [address]771 Dec, [facility] [id number] [place] [address]- 9092 Nov, [facility] [id number] [place] [address]- 9475 Nov, [facility] [id number] [place] [address]- 4753 Nov, [facility] [id number] [place] [address]- 1108 Oct, [facility] [id number] [address] 0919 Oct, [facility] [id number] [address] 7737 Oct, [facility] [id number] [address] Oct, [facility] [id number] [address] Sep, IMMUNIZATIONS No Known Immunizations SOCIAL HISTORY Never Assessed REASON FOR VISIT Refill request PLAN OF CARE VITAL SIGNS MEDICATIONS Medication Instructions Dosage Frequency Start Date End Date Duration Status ProAir HFA 108 (90 Base) MCG/ACT Inhalation every 6 hrs 2 puffs as needed Feb, Active RESULTS No Results PROCEDURES No Known [...]
--- OUTSIDE RECORDS SUMMARY | 2019-01-07 23:58 | XMS REPORT ---
Author Author NALINI GOMEZ Organization [facility] Address [address] [place] [address] Care Team Providers Care Grader Marker Name Role Phone NALINI GOMEZ Unavailable PROBLEMS Type Condition ICD9-CM Code RTD73-FP Code Onset Dates Condition Status SNOMED Code Problem Type 2 diabetes mellitus without complications E11.9 Active 686228659 Problem Other chronic pain G89.29 Active 16884076 Problem Controlled type 2 diabetes mellitus without complication, without long -term current use of insulin E11.9 Active 233153893 Problem Panlobular emphysema J43.1 Active 8931751 Problem Hypercholesterolemia 272.0 Active 81970879 Problem Mixed hyperlipidemia E78.2 Active 544229338 Problem Urinary, incontinence, stress female N39.3 Active 00030032 Problem Acquired hypothyroidism E03.9 Active 593821491 Problem Hypothyroidism, unspecified E03.9 Active 79370084 Problem Episode of recurrent major depressive disorder, unspecified depression episode severity F33.9 Active 105348077 Problem Hypothyroidism (acquired) E03.9 Active 28963136 ALLERGIES No Information ENCOUNTERS Encounter Location Date Diagnosis [place] [id number] [place] [address] 35582- 2076 Jun, [place] [address] [place] [id number] [place] [address] 97440- 0738 May, [place] [address] [place] [id number] [place] [address] 67102- 7426 May, Viral gastroenteritis A08.4 [place] [address] [place] [id number] [place] [address] 14834- 6898 May, Acute diffuse otitis externa of left ear H60.312 and Acquired hypothyroidism E03.9 [place] [id number] [place] [address] 41180- 1265 May, Episode of recurrent major depressive disorder, unspecified depression episode severity F33.9 ; Urinary, incontinence, stress female N39.3 ; Mixed hyperlipidemia E78.2 and Hypothyroidism (acquired) E03.9 [place] [address] 69420- 1103 May, [place] [address] 25951- 2064 May, Viral gastroenteritis A08.4 [place] [address] 25355- 1419 Apr, Acute diffuse otitis externa of left ear H60.312 and Hypothyroidism (acquired) E03.9 [place] [address] 15782- 8833 Apr, Viral gastroenteritis A08.4 and Acquired hypothyroidism E03.9 [place] [address] 41150- 5450 Apr, Type 2 diabetes mellitus without complications E11.9 and Panlobular emphysema J43.1 [place] [address] 43746- 0314 Apr, Viral gastroenteritis A08.4 [place] [address] 45138- 0817 March, [place] [address] 91319- 1795 March, Viral gastroenteritis A08.4 [place] [address] 76029- 8223 Feb, Panlobular emphysema J43.1 [place] [address] 11403- 0230 Feb, Panlobular emphysema J43.1 [place] [address] 52263- 6343 Feb, [place] [address] 19025- 1869 Feb, [place] [address] [place] [id number] [place] [address] 69275- 3766 Feb, Viral gastroenteritis A08.4 [place] [address] [place] [id number] [place] [address] 94090- 4885 Feb, Head lice B85.0 [place] [address] 37519- 1651 Feb, Medicare annual wellness visit, initial Z00.00 ; Head lice B85.0 ; Tinea corporis B35.4 and Enlarged lymph node R59.9 [place] [address] 14745- 2010 Jan, Viral gastroenteritis A08.4 [place] [address] [place] [id number] [place] [address] 47522- 7781 Jan, [place] [address] 37097- 2918 Dec, Controlled type 2 diabetes mellitus without complication, without long-term current use of insulin E11.9 [place] [address] [place] [id number] [place] [address] 69353- 5415 Dec, [place] [address] [place] [id number] [place] [address] 71370- 0609 Dec, Viral gastroenteritis A08.4 [place] [address] [place] [id number] [place] [address] 36766- 8243 Nov, Viral gastroenteritis A08.4 [place] [address] [place] [id number] [place] [address] 14229- 0729 Oct, Acute upper respiratory infection, unspecified J06.9 and Other viral agents as the cause of diseases classified elsewhere B97.89 [place] [address] [place] [id number] [place] [address] 68029- 7873 Oct, Viral gastroenteritis A08.4 [place] [address] 84463- 5572 Oct, Controlled type 2 diabetes mellitus without complication, without long-term current use of insulin E11.9 ; Encounter for immunization Z23 and Acute pain of left foot M79.672 [place] [address] 47734- 9205 Sep, Viral gastroenteritis A08.4 [place] [address] 57954- 7189 Aug, Viral gastroenteritis A08.4 [place] [address] 58792- 8882 Jul, Viral gastroenteritis A08.4 [facility] [address] 87923 -2130 Jul, Acute nasopharyngitis (common cold) J00 [place] [address] 99912- 9022 Jun, Viral gastroenteritis A08.4 [place] [address] 85304- 0736 Jun, [place] [address] 24465- 8471 Jun, Viral gastroenteritis A08.4 [place] [address] 27303- 4649 May, Patellar tendinitis, left knee M76.52 [place] [address] 57463- 6644 May, Viral gastroenteritis A08.4 [place] [address] 08208- 9042 Apr, Viral gastroenteritis A08.4 and Hypothyroidism, unspecified E03.9 [place] [address] 57334- 8883 15 Apr, 2017 Pain in left knee M25.562 ; Acute left-sided low back pain without sciatica M54.5 and Type 2 diabetes mellitus without complications E11.9 [facility] [address] [place] [id number] [place] [address] 21194- 5795 07 Apr, 2017 Viral gastroenteritis A08.4 [facility] [address] [place] [id number] [place] [address] 18963- 7634 10 Mar, 2017 Viral gastroenteritis A08.4 [facility] [address] [place] [id number] [place] [address] 85312 -1523 27 Feb, 2017 Acute pain of left knee M25.562 [facility] [address] [place] [id number] [place] [address] 81912- 5099 13 Feb, 2017 Viral gastroenteritis A08.4 [facility] [address] [place] [id number] [place] [address] 36999- 8376 16 Jan, 2017 Viral gastroenteritis A08.4 and Controlled type 2 diabetes mellitus without complication, without long-term current use of insulin E11.9 [place] [address] [place] [id number] [place] [address] 96945- 6678 14 Jan, 2017 [facility] [address] [place] [id number] [place] [address] 92550- 0429 16 Dec, 2016 Other chronic pain G89.29 ; Pain in left knee M25.562 ; Controlled type 2 diabetes mellitus without complication, without long-term current use of insulin E11.9 and Acute cystitis with hematuria N30.01 [place] [address] [place] [id number] [place] [address] 55456- 7620 01 Dec, 2016 [facility] [address] [place] [id number] [place] [address] 10705- 3312 Nov, Type 2 diabetes mellitus without complications E11.9 [place] [address] [place] [id number] [place] [address] 11243- 3394 Nov, [place] [address] [place] [id number] [place] [address] 20315- 3417 07 Oct, 2016 [place] [address] [place] [id number] [place] [address] 80404- 4817 Sep, [facility] [address] [place] [id number] [place] [address] 79005- 1543 Aug, [facility] [address] [place] [id number] [place] [address] 55286- 4284 Aug, [facility] [address] [place] [id number] [place] [address] 83887- 3386 Jul, Controlled type 2 diabetes mellitus without complication, without long-term current use of insulin E11.9 ; Callus of foot L84 and URI, acute J06.9 [facility] [address] [place] [id number] [place] [address] 10585- 6592 13 Jul, 2016 [facility] [address] [place] [id number] [place] [address] 82068- 6773 Jun, Onychomycosis B35.1 and Nail ingrowing L60.0 [facility] [address] [place] [id number] [place] [address] 23257- 2917 Jun, [facility] [address] [place] [id number] [place] [address] 62858- 7642 Jun, Lumbar back pain with radiculopathy affecting left lower extremity M54.17 [facility] [address] [place] [id number] [place] [address] 27862- 4779 Jun, [facility] [address] [place] [id number] [place] [address] 90327- 7394 Jun, Other chronic pain G89.29 [facility] [address] [place] [id number] [place] [address] 17639- 6120 Jun, Other chronic pain G89.29 [facility] [address] [place] [id number] [place] [address] 13640- 8210 Jun, Type 2 diabetes mellitus without complications E11.9 [facility] [address] [place] [id number] [place] [address] 32158- 3522 Jun, [facility] [address] [place] [address]- 4339 Jun, Onychomycosis B35.1 ; Callus L84 and Rash R21 [facility] [address] [place] [id number] [place] [address] 93728- 7045 May, [facility] [address] [place] [id number] [place] [address] 99938- 1804 May, [facility] [address] [place] [id number] [place] [address] 59882- 0720 May, Type 2 diabetes mellitus without complications E11.9 [facility] [address] [place] [id number] [place] [address] 68081- 0046 May, [facility] [address] [place] [id number] [place] [address] 85789- 8339 Apr, [facility] [address] [place] [id number] [place] [address] 48053- 3870 Apr, Type 2 diabetes mellitus without complications E11.9 ; Acquired hypothyroidism E03.9 ; Callus of foot L84 and Upper respiratory tract infection, unspecified type J06.9 [facility] [address] [address]- 1642 March, [facility] [id number] [place] [address] 89883- 4149 Feb, [facility] [address] [address]- 2031 Jan, Diabetes mellitus without mention of complication, type II or unspecified type, not stated as uncontrolled 250.00 [facility] [address] [address]- 0819 Jan, [facility] [address] [place] [id number] [place] [address] 36071- 0512 Jan, Diabetes E11.9 and Hypothyroidism E03.9 [facility] [address] [address]- 4616 Dec, Diarrhea R19.7 [facility] [address] [facility] [id number] [address] 2546 15 Dec, 2015 [facility] [address] [facility] [id number] [place] [address], [place] [address] 2546 Dec, Hypothyroidism, unspecified E03.9 [facility] [address] [place] [address] 2546 Dec, [facility] [address] [facility] [id number] [place] [address], [place] [address] 2546 Dec, Hypothyroidism, unspecified E03.9 [facility] [address] [facility] [id number] [place] [address], [place] [address] 2546 04 Dec, 2015 Diarrhea R19.7 [facility] [address] [place] [address] 2546 Dec, Diarrhea R19.7 [facility] [id number] [place] [address] 35037- 4456 Nov, [facility] [address] [address]- 6746 Nov, [facility] [address] [address]- 1361 Oct, [facility] [address] [address]- 4353 Sep, Postnasal drip R09.82 [facility] [address] [address] 2546 Sep, [facility] [address] [place] [id number] [address]- 9666 Sep, [facility] [address] [address] 2546 14 Aug, 2015 [facility] [address] [address]- 9256 08 Aug, 2015 [facility] [address] [place] [id number] [place] [address] 23909- 5091 Jul, Hypothyroidism 244.9 [facility] [address] [place] [id number] [place] [address] 11454- 6726 Jul, Diabetes mellitus without mention of complication, type II or unspecified type, not stated as uncontrolled 250.00 [facility] [address] [place] [id number] [place] [address] 81854- 5861 14 Jul, 2015 [facility] [address] [place] [id number] [place] [address] 57094- 4607 Jul, [facility] [address] [place] [id number] [place] [address] 38904- 7224 Jun, [facility] [address] [place] [id number] [place] [address] 28175- 1652 May, Other chronic pain 338.29 [facility] [address] [place] [id number] [place] [address] 99993- 1034 May, Other chronic pain 338.29 [facility] [address] [place] [id number] [place] [address] 17898- 4823 May, [facility] [address] [place] [id number] [place] [address] 82878- 1487 May, [facility] [address] [place] [id number] [place] [address] 46356- 6934 Apr, Rash 782.1 ; Hypercholesterolemia 272.0 and Hypothyroidism 244.9 [facility] [address] [place] [id number] [place] [address] 00511- 3893 Apr, [facility] [address] [place] [id number] [place] [address] 88631- 5046 Apr, [facility] [address] [place] [id number] [place] [address] 92175- 2923 March, [facility] [address] [place] [id number] [place] [address] 21765- 3541 Feb, [facility] [address] [place] [id number] [place] [address]- 5062 13 Feb, 2015 [facility] [place] [facility] [address] [id number] [place] [address]- 9108 Jan, [facility] [place] [facility] [address] [id number] [place] [address]- 8576 Jan, [facility] [place] [facility] [address] [id number] [place] [address]- 6873 Jan, [facility] [place] [facility] [address] [id number] [place] [address]- 1568 Jan, [facility] [place] [facility] [address] [id number] [place] [address]- 7719 Jan, [facility] [place] [facility] [address] [id number] [place] [address]- 7493 Jan, [facility] [place] [facility] [address] [id number] [place] [address]- 6302 Jan, [facility] [place] [facility] [address] [id number] [place] [address]- 1376 16 Dec, 2014 [facility] [place] [facility] [address] [id number] [place] [address]- 3481 Dec, [facility] [place] [facility] [address] [id number] [place] [address]- 4379 Nov, [facility] [place] [facility] [address] [id number] [place] [address]- 9286 Nov, [facility] [place] [facility] [address] [id number] [place] [address]- 6261 Nov, [facility] [place] [facility] [address] [id number] [place] [address]- 7788 Nov, [facility] [place] [facility] [address] [id number] [place] [address]- 5221 Nov, [facility] [place] [facility] [address] [id number] [place] [address]- 3104 Nov, [facility] [place] [facility] [address] [id number] [place] [address]- 7521 Oct, [facility] [place] [facility] [address] [id number] [place] [address]- 8430 Oct, [facility] [place] [facility] [address] [id number] [place] [address]- 3670 Sep, [facility] [place] [facility] [address] [id number] [place] [address]- 1561 Sep, [facility] [place] [facility] [address] [id number] [place] [address]- 3866 Sep, [facility] [place] [facility] [address] [id number] [place] [address]- 0615 Sep, [facility] [place] [facility] [address] [id number] [place] [address]- 1185 Aug, [facility] [place] [facility] [address] [id number] [place] [address]- 3539 Aug, [facility] [place] [facility] [address] [id number] [place] [address]- 5944 Jul, [facility] [place] [facility] [address] [id number] [place] [address]- 4497 Jul, [facility] [place] [facility] [address] [id number] [place] [address]- 3455 Jun, [facility] [place] [facility] [address] [id number] [place] [address]- 1151 Jun, [facility] [place] [facility] [address] [id number] [place] [address]- 4926 Jun, [facility] [place] [facility] [address] [id number] [place] [address]- 6418 Jun, [facility] [place] [facility] [address] [id number] [place] [address]- 5359 May, [facility] [place] [facility] [address] [id number] [place] [address]- 3262 May, [facility] [place] [facility] [address] [id number] [place] [address]- 2381 May, [facility] [place] [facility] [address] [id number] [place] 0398 May, [facility] [place] [facility] [address] [id number] [place] [address]- 4405 Apr, [facility] [place] [facility] [address] [id number] [place] [address]- 8135 Apr, [facility] [place] [facility] [address] [id number] [place] [address]- 7562 March, [facility] [place] [facility] [address] [id number] [place] [address]- 1017 March, [facility] [place] [facility] [address] [id number] [place] [address]- 0349 March, [facility] [place] [facility] [address] [id number] [place] [address]- 7308 March, [facility] [place] [facility] [address] [id number] [place] [address]- 5221 March, [facility] [place] [facility] [address] [id number] [place] [address]- 7971 March, [facility] [place] [facility] [address] [id number] [place] [address]- 4660 Feb, [facility] [place] [facility] [address] [id number] [place] [address]- 8802 Feb, [facility] [place] [facility] [address] [id number] [place] [address]- 7060 Feb, [facility] [place] [facility] [address] [id number] [place] [address]- 9880 Feb, [facility] [place] [facility] [address] [id number] [place] [address]- 4418 Feb, [facility] [place] [facility] [address] [id number] [place] [address]- 8435 Feb, [facility] [place] [facility] [address] [id number] [place] [address]- 3486 Feb, [facility] [place] [facility] [address] [id number] [place] [address]- 1686 Feb, [facility] [place] [facility] [address] [id number] [place] [address]- 7068 Jan, [facility] [place] [facility] [address] [id number] [place] [address]- 0380 Jan, [facility] [place] [facility] [address] [id number] [place] 3139 Jan, [facility] [place] [facility] [address] [id number] [place] [address]- 3177 Jan, [facility] [place] [facility] [address] [id number] [place] [address]- 4699 Jan, [facility] [place] [facility] [address] [id number] [place] [address]- 5812 Jan, [facility] [place] [facility] [address] [id number] [place] [address]- 4253 Jan, [facility] [place] [facility] [address] [id number] [place] [address]- 0501 Jan, [facility] [place] [facility] [address] [id number] [place] [address]- 5224 Jan, [facility] [place] [facility] [address] [id number] [place] [address]- 3786 Dec, [facility] [place] [facility] [address] [id number] [place] [address]- 4542 Dec, [facility] [place] [facility] [address] [id number] [place] [address]- 8056 Nov, [facility] [place] [facility] [address] [id number] [place] [address]- 0666 Nov, [facility] [place] [facility] [address] [id number] [place] [address]- 5686 Nov, [facility] [place] [facility] [address] [id number] [place] [address]- 3196 Nov, [facility] [place] [facility] [address] [id number] [place] [address]- 4199 Nov, [facility] [place] [facility] [address] [id number] [place] [address] Nov, [facility] [place] [facility] [address] [id number] [place] [address] Oct, [facility] [place] [facility] [address] [id number] [place] [address] Oct, [facility] [place] [facility] [address] [id number] [place] [address] Sep, [facility] [place] [facility] [address] [id number], [place] [address] Sep, [facility] [place] [facility] [address] [id number] [place] [address] Sep, [facility] [place] [facility] [address] [id number], [place] [address] Sep, [facility] [place] [facility] [address] [id number], [place] [address] Sep, [facility] [place] [facility] [address] [id number], [place] [address] Sep, [facility] [place] [facility] [address] [id number] [place] [address] Sep, [facility] [place] [facility] [address] [id number], [place] [address] Sep, [facility] [place] [facility] [address] [id number] [place] [address] Aug, [facility] [place] [facility] [address] [id number] [place] [address] Aug, [facility] [address] [id number] [place] [address] Aug, [facility] [place] [facility] [address] [id number] [place] [address] Jul, [facility] [place] [facility] [address] [id number] [place] [address] Jul, [facility] [place] [facility] [address] [id number] [place] [address] Jul, [facility] [address] [id number] [place] [address] Jun, [facility] [place] [facility] [address] [id number] [place] [address] Jun, [facility] [address] [id number] [place] [address] Jun, [facility] [place] [facility] [address] [id number] [place] [address] Jun, [facility] [place] [facility] [address] [id number] [place] [address] Jun, [facility] [place] [facility] [address] [id number] [place] [address] Jun, [facility] [place] [facility] [address] [id number] [place] [address] May, [facility] [place] [facility] [address] [id number] [place] [address] May, [facility] [place] [facility] [address] [id number] [place] [address]- [address] Apr, [facility] [place] [facility] [address] [id number] [place] [address] Apr, [facility] [place] [facility] [address] [id number] [place] [address] March, [facility] [place] [facility] [address] [id number] [place] [address] 23 Feb, 2013 [facility] [address] [id number] [place] [address] 17 Feb, 2013 [facility] [address] [id number] [place] [address] 16 Feb, 2013 [facility] [address] [id number] [place] [address] Feb, [facility] [address] [id number] [place] [address] Jan, [facility] [address] [id number] [place] [address] Jan, [facility] [address] [id number] [place] [address] Jan, [facility] [address] [id number] [place] [address] Jan, [facility] [address] [id number] [place] [address] Jan, [facility] [address] [id number] [place] [address] Dec, [facility] [address] [id number] [place] [address] Nov, [facility] [address] [id number] [place] [address] Nov, [facility] [address] [address] [id number] [place] [address] Oct, [facility] [address] [id number] [place] [address] Oct, [facility] [address] [id number] [place] [address] Oct, [facility] [address] [id number] [place] [address] Oct, [facility] [place] [facility] [address] [id number] [place] [address] Oct, [facility] [place] [facility] [address] [id number] [place] [address] Oct, [facility] [place] [facility] [address] [id number] [place] [address] Oct, [facility] [place] [facility] [address] [id number] [place] [address] Oct, [facility] [place] [facility] [address] [id number] [place] [address] Aug, [facility] [place] [facility] [address] [id number] [place] [address] 30 Aug, 2012 [facility] [place] [facility] [address] [id number] [place] [address] Aug, [facility] [place] [facility] [address] [id number] [place] [address] Aug, [facility] [place] [facility] [address] [id number] [place] [address] Aug, [facility] [place] [facility] [address] [id number] [place] [address] Aug, [facility] [place] [facility] [address] [id number], [place] [address] 15 Aug, 2012 [facility] [place] [facility] [address] [id number], [place] [address] 27 Jul, 2012 [facility] [place] [facility] [address] [id number] [place] [address] 27 Jul, 2012 [facility] [place] [facility] [address] [id number] [place] [address] 27 Jul, 2012 [facility] [place] [facility] [address] [id number] [place] [address] 27 Jul, 2012 [facility] [place] [facility] [address] [id number] [place] [address] Jul, [facility] [address] [id number] [place] [address] Jun, [facility] [place] [facility] [address] [id number] [place] [address] Jun, [facility] [address] [id number] [place] [address] Jun, [facility] [address] [id number] [place] [address] May, [facility] [address] [id number] [place] [address] May, [facility] [address] [id number] [place] [address] May, [facility] [address] [id number] [place] [address] May, [facility] [address] [id number] [place] [address] May, [facility] [address] [id number] [place] [address] May, [facility] [address] [id number] [place] [address] May, [facility] [place] [facility] [address] [id number] [place] [address] Apr, [facility] [address] [id number] [place] [address] Apr, [facility] [place] [facility] [address] [id number] [place] [address] March, [facility] [place] [facility] [address] [id number] [place] [address] Feb, [facility] [place] [facility] [address] [id number] [place] [address] Jan, [facility] [place] [facility] [address] [id number] [place] [address] 28 Jan, 2012 [facility] [place] [facility] [address] [id number] [place] [address] Jan, [facility] [place] [facility] [address] [id number] [place] [address]336 Jan, [facility] [place] [facility] [address] [id number] [place] [address] 2906 Jan, [facility] [place] [facility] [address] [id number] [place] [address] Jan, [facility] [place] [facility] [address] [id number] [place] [address]- [address] Jan, [facility] [place] [facility] [address] [id number] [place] [address]- [address] Jan, [facility] [place] [facility] [address] [id number] [place] [address] Jan, [facility] [place] [facility] [address] [id number] [place] [address] Jan, [facility] [place] [facility] [address] [id number] [place] [address]- [address] Dec, [facility] [place] [facility] [address] [id number] [place] [address] Dec, [facility] [place] [facility] [address] [id number] [place] [address]- [address] Dec, [facility] [place] [facility] [address] [id number] [place] [address]- [address] Dec, [facility] [place] [facility] [address] [id number] [place] [address]- [address] 27 Dec, 2011 [facility] [place] [facility] [address] [id number] [place] [address]- [address]26 17 Dec, 2011 [facility] [place] [facility] [id number] [address] Dec, [facility] [id number] [address] Dec, [facility] [id number] [address] Nov, [facility] [id number] [place] [address] Nov, [facility] [address] [id number] [address] Nov, [facility] [id number] [place] [address] Oct, [facility] [id number] [place] [address]- [address] Oct, [facility] [id number] [place] [address]- [address] Oct, [facility] [id number] [place] [address] Oct, [facility] [id number] [place] [address] Sep, IMMUNIZATIONS No Known Immunizations SOCIAL HISTORY Never Assessed REASON FOR VISIT rosuvastatin note PLAN OF CARE VITAL SIGNS MEDICATIONS Medication Instructions Dosage Frequency Start Date End Date Duration Status Atorvastatin Calcium 40 mg Orally Once a day 1 tablet 24h Feb, 30 day(s) Active RESULTS No Results PROCEDURES No Known [...] lens prosthesis Hospitalization History admitted to [facility] for bronchitis then went into cardiac arrest and was resuscitated. She was in the hospital for 7 days. 2012 Hospitalization History surgeries
--- OUTSIDE RECORDS SUMMARY | 2019-01-07 23:58 | XMS REPORT ---
Author Author NALINI GOMEZ Organization [facility] Address [address] [place] [address] Care Team Providers Care Stitcher Hand Name Role Phone NALINI GOMEZ Unavailable PROBLEMS Type Condition ICD9-CM Code LIL95-TV Code Onset Dates Condition Status SNOMED Code Problem Type 2 diabetes mellitus without complications E11.9 Active 932135945 Problem Other chronic pain G89.29 Active 39566408 Problem Controlled type 2 diabetes mellitus without complication, without long -term current use of insulin E11.9 Active 347509950 Problem Panlobular emphysema J43.1 Active 2937700 Problem Hypercholesterolemia 272.0 Active 80584647 Problem Mixed hyperlipidemia E78.2 Active 295268957 Problem Urinary, incontinence, stress female N39.3 Active 08549497 Problem Acquired hypothyroidism E03.9 Active 104104055 Problem Hypothyroidism, unspecified E03.9 Active 99612355 Problem Episode of recurrent major depressive disorder, unspecified depression episode severity F33.9 Active 892439743 Problem Hypothyroidism (acquired) E03.9 Active 56149711 ALLERGIES No Information ENCOUNTERS Encounter Location Date Diagnosis [facility] [id number] [place] [address] 17163- 1060 Jun, [facility] [id number] [place] [address] 43997- 3711 May, Acute diffuse otitis externa of left ear H60.312 and Acquired hypothyroidism E03.9 [facility] [id number] [place] [address] 02752- 4954 May, Episode of recurrent major depressive disorder, unspecified depression episode severity F33.9 ; Urinary, incontinence, stress female N39.3 ; Mixed hyperlipidemia E78.2 and Hypothyroidism (acquired) E03.9 [facility] [id number] [place] [address] 71538- 2308 May, [facility] [id number] [place] [address] 42469- 3088 May, Viral gastroenteritis A08.4 [facility] [id number] [place] [address] 77110- 6106 Apr, Acute diffuse otitis externa of left ear H60.312 and Hypothyroidism (acquired) E03.9 [facility] [address] 82966- 8334 Apr, Viral gastroenteritis A08.4 and Acquired hypothyroidism E03.9 [facility] [id number] [place] [address] 80186- 4327 Apr, Type 2 diabetes mellitus without complications E11.9 and Panlobular emphysema J43.1 [facility] [id number] [place] [address] 84267- 2308 Apr, Viral gastroenteritis A08.4 [facility] [id number] [place] [address] 95661- 5601 March, [facility] [id number] [place] [address] 78476- 5934 March, Viral gastroenteritis A08.4 [facility] [id number] [place] [address] 31845- 6472 Feb, Panlobular emphysema J43.1 [facility] [id number] [place] [address] 22586- 7859 Feb, Panlobular emphysema J43.1 [facility] [id number] [place] [address] 37118- 8090 Feb, [facility] [address] 70691- 8582 Feb, [facility] [id number] [place] [address] 36208- 6856 Feb, Viral gastroenteritis A08.4 [facility] [id number] [place] [address] 97718- 9628 Feb, Head lice B85.0 [facility] [id number] [place] [address] 95306- 8022 Feb, Medicare annual wellness visit, initial Z00.00 ; Head lice B85.0 ; Tinea corporis B35.4 and Enlarged lymph node R59.9 [facility] [address] 91375- 0411 Jan, Viral gastroenteritis A08.4 [facility] [address] 89179- 7162 Jan, [facility] [address] 16900- 2604 Dec, Controlled type 2 diabetes mellitus without complication, without long-term current use of insulin E11.9 [facility] [address] 65993- 3188 Dec, [facility] [id number] [place] [address] 45413- 4669 Dec, Viral gastroenteritis A08.4 [facility] [id number] [place] [address] 43638- 8025 Nov, Viral gastroenteritis A08.4 [facility] [id number] [place] [address] 51898- 5395 Oct, Acute upper respiratory infection, unspecified J06.9 and Other viral agents as the cause of diseases classified elsewhere B97.89 [facility] [id number] [place] [address] 78793- 2625 Oct, Viral gastroenteritis A08.4 [facility] [id number] [place] [address] 38648- 0114 Oct, Controlled type 2 diabetes mellitus without complication, without long-term current use of insulin E11.9 ; Encounter for immunization Z23 and Acute pain of left foot M79.672 [facility] [id number] [place] [address] 25443- 9547 Sep, Viral gastroenteritis A08.4 [facility] [id number] [place] [address] 66335- 3189 Aug, Viral gastroenteritis A08.4 [facility] [id number] [place] [address] 09190- 4056 Jul, Viral gastroenteritis A08.4 [facility] [id number] [place] [address] 16891 -0817 Jul, Acute nasopharyngitis (common cold) J00 [facility] [id number] [place] [address] 49159- 9720 Jun, Viral gastroenteritis A08.4 [facility] [id number] [place] [address] 87880- 4597 Jun, [facility] [id number] [place] [address] 89472- 9166 Jun, Viral gastroenteritis A08.4 [facility] [id number] [place] [address] 79234- 1929 May, Patellar tendinitis, left knee M76.52 [facility] [id number] [place] [address] 50308- 3996 May, Viral gastroenteritis A08.4 [facility] [id number] [place] [address] 43448- 0958 Apr, Viral gastroenteritis A08.4 and Hypothyroidism, unspecified E03.9 [facility] [id number] [place] [address] 92300- 8827 15 Apr, 2017 Pain in left knee M25.562 ; Acute left-sided low back pain without sciatica M54.5 and Type 2 diabetes mellitus without complications E11.9 [facility] [address] [place] [address] 73487- 5015 07 Apr, 2017 Viral gastroenteritis A08.4 [facility] [id number] [place] [address] 12935- 0017 March, Viral gastroenteritis A08.4 [facility] [address] [address]79 Feb, Acute pain of left knee M25.562 [facility] [address] [place] [address] 49902- 6610 13 Feb, 2017 Viral gastroenteritis A08.4 [facility] [id number] [place] [address] 20203- 9100 16 Jan, 2017 Viral gastroenteritis A08.4 and Controlled type 2 diabetes mellitus without complication, without long-term current use of insulin E11.9 [facility] [id number] [place] [address] 76232- 2890 14 Jan, 2017 [facility] [id number] [place] [address] 68529- 8104 16 Dec, 2016 Other chronic pain G89.29 ; Pain in left knee M25.562 ; Controlled type 2 diabetes mellitus without complication, without long-term current use of insulin E11.9 and Acute cystitis with hematuria N30.01 [facility] [address] [place] [address] 39116- 7460 Dec, [facility] [address] [place] [address] 40511- 4952 Nov, Type 2 diabetes mellitus without complications E11.9 [facility] [id number] [place] [address] 32228- 5902 Nov, [facility] [id number] [place] [address] 44189- 8383 Oct, [facility] [id number] [place] [address] 38235- 2143 Sep, [facility] [id number] [place] [address] 51996- 2387 Aug, [facility] [id number] [place] [address] 33274- 5285 Aug, [facility] [id number] [place] [address] 40016- 9074 Jul, Controlled type 2 diabetes mellitus without complication, without long-term current use of insulin E11.9 ; Callus of foot L84 and URI, acute J06.9 [place] [address] 59665- 1020 Jul, [facility] [address] 49918- 4887 Jun, Onychomycosis B35.1 and Nail ingrowing L60.0 [facility] [facility] [address] 46918- 5306 Jun, [facility] [address] 76081- 8653 Jun, Lumbar back pain with radiculopathy affecting left lower extremity M54.17 [facility] [address] 01749- 3678 Jun, [facility] [address] 87907- 8647 Jun, Other chronic pain G89.29 [facility] [address] 40569- 2232 Jun, Other chronic pain G89.29 [facility] [id number] [place] [address] 43242- 4299 Jun, Type 2 diabetes mellitus without complications E11.9 [facility] [id number] [place] [address] 67187- 9965 Jun, [facility] [address] 00738- 1178 Jun, Onychomycosis B35.1 ; Callus L84 and Rash R21 [facility] [id number] [place] [address] 51599- 0605 May, [facility] [address] [address]- 6071 May, [facility] [id number] [place] [address] 64270- 5398 May, Type 2 diabetes mellitus without complications E11.9 [facility] [address] [address]- 3985 May, [facility] [id number] [place] [address] 94810- 9853 Apr, [facility] [address] [place] [address] 60897- 7527 Apr, Type 2 diabetes mellitus without complications E11.9 ; Acquired hypothyroidism E03.9 ; Callus of foot L84 and Upper respiratory tract infection, unspecified type J06.9 [facility] [address] [address]- 4924 March, [facility] [address] [address]- 1994 Feb, [facility] [address] [place] [address] 74299- 2977 Jan, Diabetes mellitus without mention of complication, type II or unspecified type, not stated as uncontrolled 250.00 [facility] [address] [address]- 2922 Jan, [facility] [address] [address]- 5474 Jan, Diabetes E11.9 and Hypothyroidism E03.9 [facility] [address] [address]- 9748 Dec, Diarrhea R19.7 [facility] [address] [address]- 7112 Dec, [facility] [address] [address]- 5984 Dec, Hypothyroidism, unspecified E03.9 [facility] [address] [address] 2546 12 Dec, 2015 [facility] [address] [place] [address] 63003 2546 Dec, Hypothyroidism, unspecified E03.9 [facility] [address] [address] 2546 04 Dec, 2015 Diarrhea R19.7 [facility] [address] [place] [address] 30634- 2546 Dec, Diarrhea R19.7 [facility] [id number] [place] [address] 84839 2546 Nov, [facility] [address] [place] [address] 36100 2546 Nov, [facility] [address] [place] [address] 36964 2546 Oct, [facility] [address] [place] [address] 73937- 5625 Sep, Postnasal drip R09.82 [facility] [address] [place] [address] 29665- 5915 Sep, [facility] [address] [address]- 4493 Sep, [facility] [address] [place] [address] 12233- 6805 Aug, [facility] [address] [address] 2546 Aug, [facility] [id number] [place] [address] 17012- 9026 Jul, Hypothyroidism 244.9 [facility] [id number] 5348 Jul, Diabetes mellitus without mention of complication, type II or unspecified type, not stated as uncontrolled 250.00 [facility] [address] [address]- 2209 14 Jul, 2015 [facility] [id number] [place] [address] 99070- 2020 14 Jul, 2015 [facility] [address] [address]- 3909 Jun, [facility] [id number] [place] [address] 74482- 6052 May, Other chronic pain 338.29 [facility] [id number] [place] [address] 326330- 9649 10 May, 2015 Other chronic pain 338.29 [facility] [id number] [place] [address] 14066- 2441 09 May, 2015 [facility] [id number] [place] [address] 63516- 0588 May, [facility] [id number] [place] [address] 07963- 5409 Apr, Rash 782.1 ; Hypercholesterolemia 272.0 and Hypothyroidism 244.9 [facility] [address] [address]- 6309 Apr, [facility] [address] [address]- 5940 Apr, [facility] [address] [address]- 8356 March, [facility] [address] [address]- 1299 Feb, [facility] [id number] [place] [address] 33684- 6791 Feb, [facility] [address] 7180 Jan, [facility] [id number] [place] [address] 84428- 0194 Jan, [facility] [place] [facility] [address] [id number] [place] [address]- 9554 Jan, [facility] [place] [facility] [address] [id number] [place] [address]- 0146 Jan, [facility] [place] [facility] [address] [id number] [place] [address]- 5732 Jan, [facility] [place] [facility] [address] [id number] [place] [address]- 5999 Jan, [facility] [place] [facility] [address] [id number] [place] [address]- 4924 Jan, [facility] [place] [facility] [address] [id number] [place] [address]- 4566 Dec, [facility] [place] [facility] [address] [id number] [place] [address]- 7621 Dec, [facility] [place] [facility] [address] [id number] [place] [address]- 7913 Nov, [facility] [place] [facility] [address] [id number] [place] [address]- 1236 Nov, [facility] [place] [facility] [address] [id number] [place] [address]- 4644 Nov, [facility] [place] [facility] [address] [id number] [address]- 8226 Nov, [facility] [place] [facility] [address] [id number] [place] [address]- 8819 Nov, [facility] [place] [facility] [address] [id number] [place] [address]- 7262 Nov, [facility] [place] [facility] [address] [id number] [place] [address]- 5298 Oct, [facility] [place] [facility] [address] [id number] [place] [address]- 3555 Oct, [facility] [place] [facility] [address] [id number] [place] [address]- 9606 Sep, [facility] [place] [facility] [address] [id number] [place] [address]- 2482 Sep, [facility] [place] [facility] [address] [id number] [place] [address]- 6567 Sep, [facility] [place] [facility] [address] [id number] [place] [address]- 7077 Sep, [facility] [place] [facility] [address] [id number] [place] [address]- 3156 Aug, [facility] [place] [facility] [address] [id number] [place] [address]- 5353 Aug, [facility] [place] [facility] [address] [id number] [place] [address]- 8296 Jul, [facility] [place] [facility] [address] [id number] [place] [address]- 6977 Jul, [facility] [place] [facility] [address] [id number] [place] [address]- 1479 Jun, [facility] [place] [facility] [address] [id number] [place] [address]- 8298 Jun, [facility] [place] [facility] [address] [id number] [place] [address]- 6428 Jun, [facility] [place] [facility] [address] [id number] [place] [address]- 8344 Jun, [facility] [place] [facility] [address] [id number] [place] [address]- 9685 May, [facility] [place] [facility] [address] [id number] [place] [address]- 1380 May, [facility] [place] [facility] [address] [id number] [place] [address]- 8162 May, [facility] [place] [facility] [address] [id number] [place] [address]- 2383 May, [facility] [place] [facility] [address] [id number] [place] [address]- 5875 Apr, [facility] [place] [facility] [address] [id number] [place] [address]- 2348 Apr, [facility] [place] [facility] [address] [id number] [place] [address]- 6622 March, [facility] [place] [facility] [address] [id number] [place] [address]- 3546 March, [facility] [place] [facility] [address] [id number] [place] [address]- 0378 March, [facility] [place] [facility] [address] [id number] [place] [address]- 6496 March, [facility] [place] [facility] [address] [id number] [place] [address]- 3378 March, [facility] [place] [facility] [address] [id number] [place] [address]- 1906 March, [facility] [place] [facility] [address] [id number] [place] [address]- 8949 Feb, [facility] [place] [facility] [address] [id number] [place] [address]- 4955 Feb, [facility] [place] [facility] [address] [id number] [place] [address]- 4244 Feb, [facility] [place] [facility] [address] [id number] [place] [address]- 1004 Feb, [facility] [place] [facility] [address] [id number] [place] [address]- 2922 Feb, [facility] [place] [facility] [address] [id number] [place] [address]- 0876 Feb, [facility] [place] [facility] [address] [id number] [place] [address]- 9911 Feb, [facility] [place] [facility] [address] [id number] [place] [address]- 5375 Feb, [facility] [place] [facility] [address] [id number] [place] [address]- 8938 Jan, [facility] [place] [facility] [address] [id number] [place] [address]- 9536 Jan, [facility] [place] [facility] [address] [id number] [place] [address]- 6221 Jan, [facility] [place] [facility] [address] [id number] [place] [address]- 7673 Jan, [facility] [place] [facility] [address] [id number] [place] [address]- 0455 Jan, [facility] [place] [facility] [address] [id number] [place] [address]- 9414 Jan, [facility] [place] [facility] [address] [id number] [place] [address]- 6083 Jan, [facility] [place] [facility] [address] [id number] [place] [address]- 4114 Jan, [facility] [place] [facility] [address] [id number] [place] [address]- 1154 Jan, [facility] [place] [facility] [address] [id number] [place] [address]- 2940 Dec, [facility] [place] [facility] [address] [id number] [place] [address]- 5072 Dec, [facility] [place] [facility] [address] [id number] [place] [address]- 3480 Nov, [facility] [place] [facility] [address] [id number] [place] [address]- 1475 Nov, [facility] [place] [facility] [address] [id number] [place] [address]- 2635 Nov, [facility] [place] [facility] [address] [id number] [place] [address]- 9899 Nov, [facility] [place] [facility] [address] [id number] [place] [address] Nov, [facility] [place] [facility] [address] [id number] [place] [address] Nov, [facility] [place] [facility] [address] [id number] [place] [address] Oct, [facility] [place] [facility] [address] [id number] [place] [address] Oct, [facility] [address] [id number] [place] [address] Sep, [facility] [place] [facility] [address] [id number] [place] [address] Sep, [facility] [address] [id number] [place] [address] Sep, [facility] [place] [facility] [address] [id number] [place] [address] Sep, [facility] [place] [facility] [address] [id number] [place] [address] Sep, [facility] [place] [facility] [address] [id number] [place] [address] Sep, [facility] [place] [facility] [address] [id number] [place] [address] Sep, [facility] [place] [facility] [address] [id number] [address] Sep, [facility] [place] [facility] [address] [id number] [place] [address] Aug, [facility] [place] [facility] [address] [id number] [place] [address] Aug, [facility] [place] [facility] [address] [id number], [place] [address] Aug, [facility] [place] [facility] [address] [id number], [place] [address] Jul, [facility] [address] [id number] [place] [address] Jul, [facility] [place] [facility] [address] [id number] [place] [address] Jul, [facility] [place] [facility] [address] [id number] [place] [address] Jun, [facility] [place] [facility] [address] [id number] [place] [address] Jun, [facility] [place] [facility] [address] [id number] [place] [address] Jun, [facility] [place] [facility] [address] [id number] [place] [address] Jun, [facility] [place] [facility] [address] [id number] [place] [address] Jun, [facility] [place] [facility] [address] [id number] [place] [address] Jun, [facility] [place] [facility] [address] [id number] [place] [address] May, [facility] [place] [facility] [address] [id number] [place] [address] May, [facility] [place] [facility] [address] [id number] [place] [address] Apr, [facility] [place] [facility] [address] [id number] [place] [address] Apr, [facility] [place] [facility] [address] [id number] [place] [address] March, [facility] [place] [facility] [address] [id number] [place] [address] Feb, [facility] [place] [facility] [address] [id number] [place] [address] Feb, [facility] [place] [facility] [address] [id number] [place] [address] 16 Feb, 2013 [facility] [address] [id number] [place] [address] 11 Feb, 2013 [facility] [address] [id number] [place] [address] Jan, [facility] [address] [id number] [place] [address] Jan, [facility] [address] [id number] [place] [address] Jan, [facility] [address] [id number] [place] [address] Jan, [facility] [address] [id number] [place] [address]- [address] 05 Jan, 2013 [facility] [address] [id number] [place] [address] Dec, [facility] [address] [id number] [place] [address] Nov, [facility] [address] [address] [id number] [place] [address] Nov, [facility] [address] [id number] [place] [address] Oct, [facility] [address] [id number] [place] [address] Oct, [facility] [address] [id number] [place] [address] Oct, [facility] [address] [id number] [place] [address] Oct, [facility] [address] [id number] [place] [address] Oct, [facility] [address] [id number] [place] [address] Oct, [facility] [place] [facility] [address] [id number] [place] [address] Oct, [facility] [place] [facility] [address] [id number] [place] [address] Oct, [facility] [place] [facility] [address] [id number] [place] [address] Aug, [facility] [place] [facility] [address] [id number] [place] [address] 30 Aug, 2012 [facility] [place] [facility] [address] [id number] [place] [address] Aug, [facility] [place] [facility] [address] [id number] [place] [address] Aug, [facility] [place] [facility] [address] [id number] [place] [address] Aug, [facility] [place] [facility] [address] [id number], [place] [address] Aug, [facility] [place] [facility] [address] [id number] [place] [address] 15 Aug, 2012 [facility] [place] [facility] [address] [id number] [address] 27 Jul, 2012 [facility] [place] [facility] [address] [id number], [place] [address] 27 Jul, 2012 [facility] [place] [facility] [address] [id number], [place] [address] 27 Jul, 2012 [facility] [place] [facility] [address] [id number] [place] [address] 27 Jul, 2012 [facility] [place] [facility] [address] [id number], [place] [address] 03 Jul, 2012 [facility] [place] [facility] [address] [id number] [place] [address] 28 Jun, 2012 [facility] [place] [facility] [address] [id number] [place] [address] Jun, [facility] [place] [facility] [address] [id number] [place] [address] Jun, [facility] [place] [facility] [address] [id number] [place] [address] May, [facility] [place] [facility] [address] [id number] [place] [address] May, [facility] [place] [facility] [address] [id number] [place] [address] May, [facility] [place] [facility] [address] [id number] [place] [address] May, [facility] [place] [facility] [address] [id number] [place] [address] May, [facility] [place] [facility] [address] [id number] [place] [address] May, [facility] [place] [facility] [address] [id number] [place] [address] May, [facility] [place] [facility] [address] [id number] [place] [address] Apr, [facility] [place] [facility] [address] [id number] [place] [address] Apr, [facility] [place] [facility] [address] [id number] [place] [address] March, [facility] [place] [facility] [address] [id number] [place] [address] Feb, [facility] [place] [facility] [address] [id number] [place] [address] 30 Jan, 2012 [facility] [place] [facility] [address] [id number] [place] [address] Jan, [facility] [place] [facility] [address] [id number] [place] [address] Jan, [facility] [place] [facility] [address] [id number] [place] [address] 30[address] 28 Jan, 2012 [facility] [place] [facility] [address] [id number] [place] [address] Jan, [facility] [place] [facility] [address] [id number] [place] [address] Jan, [facility] [place] [facility] [address] [id number] [place] [address] 25[address] Jan, [facility] [place] [facility] [address] [id number] [place] [address] Jan, [facility] [place] [facility] [address] [id number] [place] [address] Jan, [facility] [place] [facility] [address] [id number] [place] [address] Jan, [facility] [place] [facility] [address] [id number] [place] [address] Dec, [facility] [place] [facility] [address] [id number] [place] [address] Dec, [facility] [place] [facility] [address] [id number] [place] [address] Dec, [facility] [place] [facility] [address] [id number] [place] [address] Dec, [facility] [place] [facility] [address] [id number] [place] [address] Dec, [facility] [place] [facility] [address] [id number] [place] [address]- [address] Dec, [facility] [place] [facility] [address] [id number] [place] [address]- [address] Dec, [facility] [place] [facility] [address] [id number] [place] [address] 25[address] Dec, [facility] [place] [facility] [address] [id number] [address] 31 Nov, 2011 [facility] [id number], [place] [address] 29 Nov, 2011 [facility] [address] [id number], [place] [address] Nov, [facility] [id number], [place] [address] Oct, [facility] [id number] [place] [address] Oct, [facility] [id number] [place] [address] Oct, [facility] [id number] [place] [address] Oct, [facility] [id number], [place] [address] Sep, IMMUNIZATIONS No Known Immunizations SOCIAL HISTORY Never Assessed REASON FOR VISIT MTM (Medication Therapy Management) PLAN OF CARE VITAL SIGNS MEDICATIONS Unknown [...] intraocular lens prosthesis Hospitalization History admitted to [facility] for bronchitis then went into cardiac arrest and was resuscitated. She was in the hospital for 7 days. 2012 Hospitalization History surgeries
--- OUTSIDE RECORDS SUMMARY | 2019-01-07 23:59 | XMS REPORT ---
Author Author NALINI GOMEZ Organization [facility] Address [address] [place] [address] Care Team Providers Care Energy Conservation Director Name Role Phone NALINI GOMEZ Unavailable PROBLEMS Type Condition ICD9-CM Code [id number] Code Onset Dates Condition Status SNOMED Code Problem Type 2 diabetes mellitus without complications E11.9 Active 824143186 Problem Other chronic pain G89.29 Active 05217072 Problem Controlled type 2 diabetes mellitus without complication, without long -term current use of insulin E11.9 Active 306541768 Problem Panlobular emphysema J43.1 Active 0458067 Problem Hypercholesterolemia 272.0 Active 21438821 Problem Mixed hyperlipidemia E78.2 Active 309442350 Problem Urinary, incontinence, stress female N39.3 Active 39924242 Problem Acquired hypothyroidism E03.9 Active 581439987 Problem Hypothyroidism, unspecified E03.9 Active 53331841 Problem Episode of recurrent major depressive disorder, unspecified depression episode severity F33.9 Active 008345246 Problem Hypothyroidism (acquired) E03.9 Active 35987982 ALLERGIES No Information ENCOUNTERS Encounter Location Date Diagnosis [facility] [id number] [place] [address] 06407- 8398 Jun, [facility] [id number] [place] [address] 88836- 7763 May, Acute diffuse otitis externa of left ear H60.312 and Acquired hypothyroidism E03.9 [facility] [id number] [place] [address] 25594- 8679 May, Episode of recurrent major depressive disorder, unspecified depression episode severity F33.9 ; Urinary, incontinence, stress female N39.3 ; Mixed hyperlipidemia E78.2 and Hypothyroidism (acquired) E03.9 [facility] [id number] [place] [address] 50314- 9624 May, [facility] [id number] [place] [address] 88131- 7380 May, Viral gastroenteritis A08.4 [facility] [id number] [place] [address] 27846- 6716 Apr, Acute diffuse otitis externa of left ear H60.312 and Hypothyroidism (acquired) E03.9 [facility] [address] 45619- 6272 Apr, Viral gastroenteritis A08.4 and Acquired hypothyroidism E03.9 [facility] [id number] [place] [address] 68080- 9742 Apr, Type 2 diabetes mellitus without complications E11.9 and Panlobular emphysema J43.1 [facility] [id number] [place] [address] 98226- 2632 Apr, Viral gastroenteritis A08.4 [facility] [id number] [place] [address] 23901- 5599 March, [facility] [id number] [place] [address] 44712- 0432 March, Viral gastroenteritis A08.4 [facility] [id number] [place] [address] 27412- 6031 Feb, Panlobular emphysema J43.1 [facility] [id number] [place] [address] 52947- 0526 Feb, Panlobular emphysema J43.1 [facility] [id number] [place] [address] 72723- 2134 Feb, [facility] [address] 27715- 1217 Feb, [facility] [id number] [place] [address] 29073- 6529 Feb, Viral gastroenteritis A08.4 [facility] [id number] [place] [address] 97341- 4711 Feb, Head lice B85.0 [facility] [id number] [place] [address] 30172- 3244 Feb, Medicare annual wellness visit, initial Z00.00 ; Head lice B85.0 ; Tinea corporis B35.4 and Enlarged lymph node R59.9 [facility] [address] 24641- 1214 Jan, Viral gastroenteritis A08.4 [facility] [address] 75486- 8892 Jan, [facility] [address] 55354- 9081 Dec, Controlled type 2 diabetes mellitus without complication, without long-term current use of insulin E11.9 [facility] [address] 20431- 5791 Dec, [facility] [id number] [place] [address] 31181- 4979 Dec, Viral gastroenteritis A08.4 [facility] [id number] [place] [address] 72129- 2444 Nov, Viral gastroenteritis A08.4 [facility] [id number] [place] [address] 43694- 1184 Oct, Acute upper respiratory infection, unspecified J06.9 and Other viral agents as the cause of diseases classified elsewhere B97.89 [facility] [id number] [place] [address] 56766- 1939 Oct, Viral gastroenteritis A08.4 [facility] [id number] [place] [address] 58011- 1309 Oct, Controlled type 2 diabetes mellitus without complication, without long-term current use of insulin E11.9 ; Encounter for immunization Z23 and Acute pain of left foot M79.672 [facility] [id number] [place] [address] 23742- 3070 Sep, Viral gastroenteritis A08.4 [facility] [id number] [place] [address] 57828- 7882 Aug, Viral gastroenteritis A08.4 [facility] [id number] [place] [address] 24871- 2391 Jul, Viral gastroenteritis A08.4 [facility] [id number] [place] [address] 75911 -5246 Jul, Acute nasopharyngitis (common cold) J00 [facility] [id number] [place] [address] 22765- 7853 Jun, Viral gastroenteritis A08.4 [facility] [id number] [place] [address] 27801- 9304 Jun, [facility] [id number] [place] [address] 58388- 7538 Jun, Viral gastroenteritis A08.4 [facility] [id number] [place] [address] 31678- 9991 May, Patellar tendinitis, left knee M76.52 [facility] [id number] [place] [address] 79740- 4119 May, Viral gastroenteritis A08.4 [facility] [id number] [place] [address] 19732- 3737 Apr, Viral gastroenteritis A08.4 and Hypothyroidism, unspecified E03.9 [facility] [id number] [place] [address] 44875- 4981 15 Apr, 2017 Pain in left knee M25.562 ; Acute left-sided low back pain without sciatica M54.5 and Type 2 diabetes mellitus without complications E11.9 [facility] [address] [place] [address] 06012- 2174 07 Apr, 2017 Viral gastroenteritis A08.4 [facility] [id number] [place] [address] 68178- 1645 March, Viral gastroenteritis A08.4 [facility] [address] [address] Feb, Acute pain of left knee M25.562 [facility] [id number] [place] [address] 29823- 5969 13 Feb, 2017 Viral gastroenteritis A08.4 [facility] [id number] [place] [address] 53638- 4167 16 Jan, 2017 Viral gastroenteritis A08.4 and Controlled type 2 diabetes mellitus without complication, without long-term current use of insulin E11.9 [facility] [id number] [place] [address] 39460- 2835 14 Jan, 2017 [facility] [id number] [place] [address] 81825- 8077 16 Dec, 2016 Other chronic pain G89.29 ; Pain in left knee M25.562 ; Controlled type 2 diabetes mellitus without complication, without long-term current use of insulin E11.9 and Acute cystitis with hematuria N30.01 [facility] [id number] [place] [address] 04857- 6669 Dec, [facility] [id number] [place] [address] 36388- 8473 Nov, Type 2 diabetes mellitus without complications E11.9 [facility] [id number] [place] [address] 20912- 5921 Nov, [facility] [id number] [place] [address] 95264- 6437 Oct, [facility] [id number] [place] [address] 86349- 5300 Sep, [facility] [id number] [place] [address] 28950- 3531 Aug, [facility] [id number] [place] [address] 05778- 7203 Aug, [facility] [id number] [place] [address] 97613- 5282 Jul, Controlled type 2 diabetes mellitus without complication, without long-term current use of insulin E11.9 ; Callus of foot L84 and URI, acute J06.9 [facility] [address] 40002- 2753 Jul, [facility] [address] 29094- 4716 Jun, Onychomycosis B35.1 and Nail ingrowing L60.0 [facility] [address] 13095- 0285 Jun, [facility] [address] 87548- 6874 Jun, Lumbar back pain with radiculopathy affecting left lower extremity M54.17 [facility] [address] 13924- 1695 Jun, [facility] [address] 57479- 6998 Jun, Other chronic pain G89.29 [facility] [address] 29620- 1643 Jun, Other chronic pain G89.29 [facility] [id number] [place] [address] 22251- 8289 Jun, Type 2 diabetes mellitus without complications E11.9 [facility] [id number] [place] [address] 12401- 1777 Jun, [facility] [address] 39063- 7534 Jun, Onychomycosis B35.1 ; Callus L84 and Rash R21 [facility] [id number] [place] [address] 44585- 3837 May, [facility] [address] [address]- 3758 May, [facility] [id number] [place] [address] 97210- 7283 May, Type 2 diabetes mellitus without complications E11.9 [facility] [address] [address]- 3048 May, [facility] [id number] [place] [address] 26583- 0347 Apr, [facility] [id number] [place] [address] 66719- 2801 Apr, Type 2 diabetes mellitus without complications E11.9 ; Acquired hypothyroidism E03.9 ; Callus of foot L84 and Upper respiratory tract infection, unspecified type J06.9 [facility] [address] [address]- 5713 March, [facility] [address] [address]- 3847 Feb, [facility] [id number] [place] [address] 73064- 7791 Jan, Diabetes mellitus without mention of complication, type II or unspecified type, not stated as uncontrolled 250.00 [facility] [address] [address]- 7542 Jan, [facility] [address] [address]- 4791 Jan, Diabetes E11.9 and Hypothyroidism E03.9 [facility] [address] [address]- 5713 Dec, Diarrhea R19.7 [facility] [address] [address]- 5288 Dec, [facility] [address] [address]- 7887 Dec, Hypothyroidism, unspecified E03.9 [facility] [address] [address] 2546 12 Dec, 2015 [facility] [id number] [place] [address] 87246 2546 Dec, Hypothyroidism, unspecified E03.9 [facility] [address] [address] 2546 04 Dec, 2015 Diarrhea R19.7 [facility] [id number] [place] [address] 74536- 2546 Dec, Diarrhea R19.7 [facility] [id number] [place] [address] 85485 2546 Nov, [facility] [id number] [place] [address] 78149 2546 Nov, [facility] [id number] [place] [address] 32136 2546 Oct, [facility] [id number] [place] [address] 36978- 6764 Sep, Postnasal drip R09.82 [facility] [id number] [place] [address] 21147- 4371 Sep, [facility] [address] [address]- 9640 Sep, [facility] [id number] [place] [address] 54743- 0236 Aug, [facility] [address] [address] 2546 Aug, [facility] [id number] [place] [address] 05901- 9946 Jul, Hypothyroidism 244.9 [facility] [id number] 8129 Jul, Diabetes mellitus without mention of complication, type II or unspecified type, not stated as uncontrolled 250.00 [facility] [address] [address]- 7938 14 Jul, 2015 [facility] [id number] [place] [address] 44551- 1474 14 Jul, 2015 [facility] [address] [address]- 3236 Jun, [facility] [id number] [place] [address] 91233- 1971 May, Other chronic pain 338.29 [facility] [id number] [place] [address] 563125- 5223 10 May, 2015 Other chronic pain 338.29 [facility] [id number] [place] [address] 65797- 2197 09 May, 2015 [facility] [id number] [place] [address] 28291- 9512 May, [facility] [id number] [place] [address] 89504- 6024 Apr, Rash 782.1 ; Hypercholesterolemia 272.0 and Hypothyroidism 244.9 [facility] [address], [place] [address]- 9954 Apr, [facility] [address], [place] [address]- 7421 Apr, [facility] [address] [address]- 7550 March, [facility] [address], [place] [address]- 2515 Feb, [facility] [id number] [place] [address] 33579- 1450 Feb, [facility] [address] 0850 Jan, [facility] [id number] [place] [address] 65715- 9888 Jan, [facility] [place] [facility] [address] [id number] [place] [address]- 6203 Jan, [facility] [place] [facility] [address] [id number] [place] [address]- 1749 Jan, [facility] [place] [facility] [address] [id number] [place] [address]- 1187 Jan, [facility] [place] [facility] [address] [id number] [place] [address]- 9549 Jan, [facility] [place] [facility] [address] [id number] [place] [address]- 1709 Jan, [facility] [place] [facility] [address] [id number] [place] [address]- 0809 Dec, [facility] [place] [facility] [address] [id number] [place] [address]- 9454 Dec, [facility] [place] [facility] [address] [id number] [place] [address]- 0603 Nov, [facility] [place] [facility] [address] [id number] [place] [address]- 5931 Nov, [facility] [place] [facility] [address] [id number] [place] [address]- 8960 Nov, [facility] [place] [facility] [address] [id number] [address]- 0760 Nov, [facility] [place] [facility] [address] [id number] [place] [address]- 4566 Nov, [facility] [place] [facility] [address] [id number] [place] [address]- 6010 Nov, [facility] [place] [facility] [address] [id number] [place] [address]- 5517 Oct, [facility] [place] [facility] [address] [id number] [place] [address]- 1749 Oct, [facility] [place] [facility] [address] [id number] [place] [address]- 2439 Sep, [facility] [place] [facility] [address] [id number] [place] [address]- 7458 Sep, [facility] [place] [facility] [address] [id number] [place] [address]- 8042 Sep, [facility] [place] [facility] [address] [id number] [place] [address]- 9515 Sep, [facility] [place] [facility] [address] [id number] [place] [address]- 0865 Aug, [facility] [place] [facility] [address] [id number] [place] [address]- 9908 Aug, [facility] [place] [facility] [address] [id number] [place] [address]- 6992 Jul, [facility] [place] [facility] [address] [id number] [place] [address]- 2097 Jul, [facility] [place] [facility] [address] [id number] [place] [address]- 7417 Jun, [facility] [place] [facility] [address] [id number] [place] [address]- 9880 Jun, [facility] [place] [facility] [address] [id number] [place] [address]- 8181 Jun, [facility] [place] [facility] [address] [id number] [place] [address]- 3062 Jun, [facility] [place] [facility] [address] [id number] [place] [address]- 7611 May, [facility] [place] [facility] [address] [id number] [place] [address]- 2844 May, [facility] [place] [facility] [address] [id number] [place] [address]- 5707 May, [facility] [place] [facility] [address] [id number] [place] [address]- 3383 May, [facility] [place] [facility] [address] [id number] [place] [address]- 8601 Apr, [facility] [place] [facility] [address] [id number] [place] [address]- 9952 Apr, [facility] [place] [facility] [address] [id number] [place] [address]- 7236 March, [facility] [place] [facility] [address] [id number] [place] [address]- 3471 March, [facility] [place] [facility] [address] [id number] [place] [address]- 7300 March, [facility] [place] [facility] [address] [id number] [place] [address]- 6388 March, [facility] [place] [facility] [address] [id number] [place] [address]- 3044 March, [facility] [place] [facility] [address] [id number] [place] [address]- 7303 March, [facility] [place] [facility] [address] [id number] [place] [address]- 7482 Feb, [facility] [place] [facility] [address] [id number] [place] [address]- 4441 Feb, [facility] [place] [facility] [address] [id number] [place] [address]- 1645 Feb, [facility] [place] [facility] [address] [id number] [place] [address]- 1534 Feb, [facility] [place] [facility] [address] [id number] [place] [address]- 7577 Feb, [facility] [place] [facility] [address] [id number] [place] [address]- 4093 Feb, [facility] [place] [facility] [address] [id number] [place] [address]- 4083 Feb, [facility] [place] [facility] [address] [id number] [place] [address]- 5138 Feb, [facility] [place] [facility] [address] [id number] [place] [address]- 4125 Jan, [facility] [place] [facility] [address] [id number] [place] [address]- 4597 Jan, [facility] [place] [facility] [address] [id number] [place] [address]- 5633 Jan, [facility] [place] [facility] [address] [id number] [place] [address]- 0050 Jan, [facility] [place] [facility] [address] [id number] [place] [address]- 9616 Jan, [facility] [place] [facility] [address] [id number] [place] [address]- 8650 Jan, [facility] [place] [facility] [address] [id number] [place] [address]- 7921 Jan, [facility] [place] [facility] [address] [id number] [place] [address]- 0558 Jan, [facility] [place] [facility] [address] [id number] [place] [address]- 7271 Jan, [facility] [place] [facility] [address] [id number] [place] [address]- 8709 Dec, [facility] [place] [facility] [address] [id number] [place] [address]- 7450 Dec, [facility] [place] [facility] [address] [id number] [place] [address]- 4516 Nov, [facility] [place] [facility] [address] [id number] [place] [address] Nov, [facility] [place] [facility] [address] [id number] [place] [address] Nov, [facility] [place] [facility] [address] [id number] [place] [address] Nov, [facility] [place] [facility] [address] [id number] [place] [address] Nov, [facility] [place] [facility] [address] [id number] [place] [address] Nov, [facility] [place] [facility] [address] [id number] [place] [address] Oct, [facility] [place] [facility] [address] [id number] [place] [address] Oct, [facility] [address] [id number] [place] [address] Sep, [facility] [place] [facility] [address] [id number] [place] [address] Sep, [facility] [address] [id number] [place] [address] Sep, [facility] [place] [facility] [address] [id number] [place] [address] Sep, [facility] [place] [facility] [address] [id number] [place] [address] Sep, [facility] [place] [facility] [address] [id number] [place] [address] Sep, [facility] [place] [facility] [address] [id number] [place] [address] Sep, [facility] [place] [facility] [address] [id number] [address] Sep, [facility] [place] [facility] [address] [id number] [place] [address] Aug, [facility] [place] [facility] [address] [id number] [place] [address] Aug, [facility] [place] [facility] [address] [id number], [place] [address] Aug, [facility] [place] [facility] [address] [id number], [place] [address] Jul, [facility] [address] [id number] [place] [address] Jul, [facility] [place] [facility] [address] [id number] [place] [address] Jul, [facility] [place] [facility] [address] [id number] [place] [address] Jun, [facility] [place] [facility] [address] [id number] [place] [address] Jun, [facility] [place] [facility] [address] [id number] [place] [address] Jun, [facility] [place] [facility] [address] [id number] [place] [address] Jun, [facility] [place] [facility] [address] [id number] [place] [address] Jun, [facility] [place] [facility] [address] [id number] [place] [address] Jun, [facility] [place] [facility] [address] [id number] [place] [address] May, [facility] [place] [facility] [address] [id number] [place] [address] May, [facility] [place] [facility] [address] [id number] [place] [address] Apr, [facility] [place] [facility] [address] [id number] [place] [address] Apr, [facility] [place] [facility] [address] [id number] [place] [address] March, [facility] [place] [facility] [address] [id number] [place] [address] Feb, [facility] [place] [facility] [address] [id number] [place] [address] Feb, [facility] [place] [facility] [address] [id number] [place] [address] 16 Feb, 2013 [facility] [address] [id number] [place] [address] 11 Feb, 2013 [facility] [address] [id number] [place] [address] Jan, [facility] [address] [id number] [place] [address] Jan, [facility] [address] [id number] [place] [address] Jan, [facility] [address] [id number] [place] [address] Jan, [facility] [address] [id number] [place] [address] 05 Jan, 2013 [facility] [address] [id number] [place] [address] Dec, [facility] [address] [id number] [place] [address] Nov, [facility] [address] [id number] [place] [address] Nov, [facility] [address] [id number] [place] [address] Oct, [facility] [address] [id number] [place] [address] Oct, [facility] [address] [id number] [place] [address] Oct, [facility] [address] [id number] [place] [address] Oct, [facility] [address] [id number] [place] [address] Oct, [facility] [address] [id number] [place] [address] Oct, [facility] [place] [facility] [address] [id number] [place] [address] Oct, [facility] [place] [facility] [address] [id number] [place] [address] Oct, [facility] [place] [facility] [address] [id number] [place] [address] Aug, [facility] [place] [facility] [address] [id number] [place] [address] 30 Aug, 2012 [facility] [place] [facility] [address] [id number] [place] [address] Aug, [facility] [place] [facility] [address] [id number] [place] [address] Aug, [facility] [place] [facility] [address] [id number] [place] [address] Aug, [facility] [place] [facility] [address] [id number] [address] Aug, [facility] [place] [facility] [address] [id number] [place] [address]73 15 Aug, 2012 [facility] [place] [facility] [address] [id number], [place] [address] 27 Jul, 2012 [facility] [place] [facility] [address] [id number][place] [address] 27 Jul, 2012 [facility] [place] [facility] [address] [id number] [address] 27 Jul, 2012 [facility] [place] [facility] [address] [id number] [place] [address]- 365[address] 27 Jul, 2012 [facility] [place] [facility] [address] [id number][place] [address] 03 Jul, 2012 [facility] [place] [facility] [address] [id number] [place] [address]- [address]65 28 Jun, 2012 [facility] [place] [facility] [address] [id number] [place] [address] Jun, [facility] [place] [facility] [address] [id number] [place] [address] Jun, [facility] [place] [facility] [address] [id number] [place] [address] May, [facility] [place] [facility] [address] [id number] [place] [address] May, [facility] [place] [facility] [address] [id number] [place] [address] May, [facility] [place] [facility] [address] [id number] [place] [address] 97[address] May, [facility] [place] [facility] [address] [id number] [place] [address] May, [facility] [place] [facility] [address] [id number] [place] [address]683 May, [facility] [place] [facility] [address] [id number] [place] [address]248 May, [facility] [place] [facility] [address] [id number] [place] [address] Apr, [facility] [place] [facility] [address] [id number] [place] [address]168 Apr, [facility] [place] [facility] [address] [id number] [place] [address] March, [facility] [place] [facility] [address] [id number] [place] [address] Feb, [facility] [place] [facility] [address] [id number] [place] [address] 30 Jan, 2012 [facility] [place] [facility] [address] [id number] [place] [address] Jan, [facility] [place] [facility] [address] [id number] [place] [address]- [address] Jan, [facility] [place] [facility] [address] [id number] [place] [address]- [address]37 28 Jan, 2012 [facility] [place] [facility] [address] [id number] [place] [address] 2546 Jan, [facility] [place] [facility] [address] [id number] [place] [address] 2546 Jan, [facility] [place] [facility] [address] [id number] [place] [address] 25[address] Jan, [facility] [place] [facility] [address] [id number] [place] [address] 25[address] Jan, [facility] [place] [facility] [address] [id number] [place] [address] Jan, [facility] [place] [facility] [address] [id number] [place] [address] Jan, [facility] [place] [facility] [address] [id number] [place] [address] Dec, [facility] [place] [facility] [address] [id number] [place] [address]- [address]297 Dec, [facility] [place] [facility] [address] [id number] [place] [address] 1693 Dec, [facility] [place] [facility] [address] [id number] [place] [address] 4718 Dec, [facility] [place] [facility] [address] [id number] [place] [address]- 2544 Dec, [facility] [place] [facility] [address] [id number] [place] [address]- 2546 Dec, [facility] [place] [facility] [address] [id number] [place] [address]- 2546 Dec, [facility] [place] [facility] [address] [id number] [place] [address] 2546 Dec, [facility] [place] [facility] [address] [id number] [address] 31 Nov, 2011 [facility] [id number] [address] 29 Nov, 2011 [facility] [address] [id number] [address] Nov, [facility] [id number] [address] Oct, [facility] [id number] [place] [address] Oct, [facility] [id number] [place] [address]- [address] Oct, [facility] [id number] [place] [address] 2546 Oct, [facility] [id number] [address] Sep, IMMUNIZATIONS No Known Immunizations SOCIAL HISTORY Never Assessed REASON FOR VISIT Controlled Med Refill 03/01 PLAN OF CARE VITAL SIGNS MEDICATIONS Medication Instructions Dosage Frequency Start Date End Date Duration Status [place] 10-325 MG Orally every 6 hrs 1 tablet as needed 6h Feb, 28 days Active RESULTS No Results PROCEDURES [...] intraocular lens prosthesis Hospitalization History admitted to [facility] for bronchitis then went into cardiac arrest and was resuscitated. She was in the hospital for 7 days. 2012 Hospitalization History surgeries
--- OUTSIDE RECORDS SUMMARY | 2019-01-07 23:59 | XMS REPORT ---
Author Author NALINI GOMEZ Organization [facility] Address [address] [place] [address] Care Team Providers Care Journey Lineman Name Role Phone NALINI GOMEZ Unavailable PROBLEMS Type Condition ICD9-CM Code [id number] Code Onset Dates Condition Status SNOMED Code Problem Type 2 diabetes mellitus without complications E11.9 Active 096089907 Problem Other chronic pain G89.29 Active 85015287 Problem Controlled type 2 diabetes mellitus without complication, without long -term current use of insulin E11.9 Active 973672063 Problem Panlobular emphysema J43.1 Active 0704020 Problem Hypercholesterolemia 272.0 Active 50083705 Problem Mixed hyperlipidemia E78.2 Active 616242772 Problem Urinary, incontinence, stress female N39.3 Active 91312310 Problem Acquired hypothyroidism E03.9 Active 344755537 Problem Hypothyroidism, unspecified E03.9 Active 52337827 Problem Episode of recurrent major depressive disorder, unspecified depression episode severity F33.9 Active 994090052 Problem Hypothyroidism (acquired) E03.9 Active 41592886 ALLERGIES Substance Reaction Event Type Date Status Rocephin Unknown Drug Allergy Feb, Active Penicillin V Potassium Unknown Drug Allergy Feb, Active Nsaids (non-steroidal Anti-inflammatory Drug) renal insuffiency Non Drug Allergy Feb, Active ENCOUNTERS Encounter Location Date Diagnosis [facility] [address] [id number], [place] [address] Jun, [facility] [address] [facility] [id number], [place] [address] May, Acute diffuse otitis externa of left ear H60.312 and Acquired hypothyroidism E03.9 [facility] [address] [facility] [id number], [place] [address] May, Episode of recurrent major depressive disorder, unspecified depression episode severity F33.9 ; Urinary, incontinence, stress female N39.3 ; Mixed hyperlipidemia E78.2 and Hypothyroidism (acquired) E03.9 [facility] [address] [address] May, [facility] [address] [address]- [address] May, Viral gastroenteritis A08.4 [facility] [address] [address]- [address] Apr, Acute diffuse otitis externa of left ear H60.312 and Hypothyroidism (acquired) E03.9 [facility] [address] [address]- [address] Apr, Viral gastroenteritis A08.4 and Acquired hypothyroidism E03.9 [facility] [address] [address]- [address] Apr, Type 2 diabetes mellitus without complications E11.9 and Panlobular emphysema J43.1 [facility] [address] [address]- [address] Apr, Viral gastroenteritis A08.4 [facility] [address] [address]- [address] March, [facility] [address] [address]- [address] March, Viral gastroenteritis A08.4 [facility] [address] [address]- [address]90 Feb, Panlobular emphysema J43.1 [facility] [id number] [place] [address] 90998- 6543 Feb, Panlobular emphysema J43.1 [facility] [address] [address]- 164[address] Feb, [facility] [address] [address]- 51[address] Feb, [facility] [address], [place] [address] Feb, Viral gastroenteritis A08.4 [facility] [id number] [place] [address] 41956- 4991 Feb, Head lice B85.0 [facility] [id number] [place] [address] 63892- 9953 Feb, Medicare annual wellness visit, initial Z00.00 ; Head lice B85.0 ; Tinea corporis B35.4 and Enlarged lymph node R59.9 [facility] [id number] [place] [address] 59047- 3633 Jan, Viral gastroenteritis A08.4 [facility] [id number] [place] [address] 42439- 7636 Jan, [facility] [id number] [place] [address] 78590- 5227 Dec, Controlled type 2 diabetes mellitus without complication, without long-term current use of insulin E11.9 [facility] [id number] [place] [address] 24481- 2800 Dec, [facility] [id number] [place] [address] 71804- 9665 Dec, Viral gastroenteritis A08.4 [facility] [id number] [place] [address] 59412- 5492 Nov, Viral gastroenteritis A08.4 [facility] [id number] [place] [address] 65813- 0109 Oct, Acute upper respiratory infection, unspecified J06.9 and Other viral agents as the cause of diseases classified elsewhere B97.89 [facility] [id number] [place] [address] 51178- 7667 Oct, Viral gastroenteritis A08.4 [facility] [id number] [place] [address] 03326- 3732 01 Dec, 2017 Controlled type 2 diabetes mellitus without complication, without long-term current use of insulin E11.9 ; Encounter for immunization Z23 and Acute pain of left foot M79.672 [facility] [facility] [address] 14791- 9111 Sep, Viral gastroenteritis A08.4 [address] [address] 77665- 4326 Aug, Viral gastroenteritis A08.4 [address] [address] 64000- 7072 Jul, Viral gastroenteritis A08.4 [facility] [address] [address] -2604 Jul, Acute nasopharyngitis (common cold) J00 [address] [address] 79146- 9279 Jun, Viral gastroenteritis A08.4 [address] [address] 84676- 1669 Jun, [facility] [address] 35797- 3173 Jun, Viral gastroenteritis A08.4 [facility] [id number] [place] [address] 37596- 5668 May, Patellar tendinitis, left knee M76.52 [facility] [facility] [address] 55782- 0947 May, Viral gastroenteritis A08.4 [address] [place] 23022- 7366 Apr, Viral gastroenteritis A08.4 and Hypothyroidism, unspecified E03.9 [facility] [id number] [place] [address] 87277- 3477 Apr, Pain in left knee M25.562 ; Acute left-sided low back pain without sciatica M54.5 and Type 2 diabetes mellitus without complications E11.9 [facility] [facility] [address], [place] [address]- 7158 07 Apr, 2017 Viral gastroenteritis A08.4 [facility] [id number] [place] [address] 38929- 2530 March, Viral gastroenteritis A08.4 [facility] [address], [place] [address] 27 Feb, 2017 Acute pain of left knee M25.562 [facility] [id number] [place] [address] 52801- 8456 13 Feb, 2017 Viral gastroenteritis A08.4 [facility] [id number] [place] [address] 87741- 6024 16 Jan, 2017 Viral gastroenteritis A08.4 and Controlled type 2 diabetes mellitus without complication, without long-term current use of insulin E11.9 [address] [place] [id number] [place] [address] 22413- 6079 14 Jan, 2017 [facility] [id number] [place] [address] 50676- 0746 16 Dec, 2016 Other chronic pain G89.29 ; Pain in left knee M25.562 ; Controlled type 2 diabetes mellitus without complication, without long-term current use of insulin E11.9 and Acute cystitis with hematuria N30.01 [place] [address], [place] [address]- 9239 Dec, [place] [id number] [place] [address] 03528- 5072 Nov, Type 2 diabetes mellitus without complications E11.9 [facility] [address], [place] [address]- 3947 Nov, [facility] [id number] [place] [address] 39756- 5578 Oct, [facility] [address], [place] [address]- 6380 Sep, [facility] [id number] [place] [address] 31695- 0406 Aug, [facility] [id number] [place] [address] 40652- 9546 Aug, [facility] [id number] [place] [address] 96244- 9435 20 Jul, 2016 Controlled type 2 diabetes mellitus without complication, without long-term current use of insulin E11.9 ; Callus of foot L84 and URI, acute J06.9 [facility] [id number] [place] [address] 60289- 8782 13 Jul, 2016 [place] [address] 09464- 0053 Jun, Onychomycosis B35.1 and Nail ingrowing L60.0 [place] [id number] [place] [address] 87452- 0296 Jun, [facility] [id number] [place] [address] 98154- 6385 Jun, Lumbar back pain with radiculopathy affecting left lower extremity M54.17 [facility] [id number] [place] [address] 37072- 3410 Jun, [facility] [id number] [place] [address] 14409- 0100 Jun, Other chronic pain G89.29 [facility] [id number] [place] [address] 97733- 4582 Jun, Other chronic pain G89.29 [facility] [id number] [place] [address] 00536- 9847 Jun, Type 2 diabetes mellitus without complications E11.9 [facility] [place] [id number] [place] [address] 67071- 4109 Jun, [facility] [id number] [place] [address] 33806- 9428 02 Aug, 2016 Onychomycosis B35.1 ; Callus L84 and Rash R21 [facility] [address], [place] [address]- 7661 May, [facility] [address], [place] [address]- 8466 May, [facility] [address] [id number], [place] [address]- 1163 May, Type 2 diabetes mellitus without complications E11.9 [facility] [address], [place] [address]- 2991 May, [facility] [id number] [place] [address] 57959- 6607 Apr, [facility] [id number] [place] [address] 78661- 4897 Apr, Type 2 diabetes mellitus without complications E11.9 ; Acquired hypothyroidism E03.9 ; Callus of foot L84 and Upper respiratory tract infection, unspecified type J06.9 [facility] [address], [place] [address]- 8820 March, [facility] [id number], [place] [address]- 5219 Feb, [facility] [address], [place] [address]- 4520 Jan, Diabetes mellitus without mention of complication, type II or unspecified type, not stated as uncontrolled 250.00 [facility] [address], [place] [address]- 9101 Jan, [facility] [id number] [place] [address] 43148- 6201 Jan, Diabetes E11.9 and Hypothyroidism E03.9 [facility] [address], [place] [address]- 0703 Dec, Diarrhea R19.7 [facility] [id number] [place] [address] 60826- 0048 15 Dec, 2015 [facility] [address], [place] [address]- 8250 Dec, Hypothyroidism, unspecified E03.9 [facility] [address] [facility] [id number] [place] [address] 58931 2546 Dec, [facility] [id number] [place] [address] 61213- 6965 Dec, Hypothyroidism, unspecified E03.9 [facility] [address] [facility] [id number] [place] [address] 64811- 3259 04 Dec, 2015 Diarrhea R19.7 [facility] [id number] [place] [address] 56398- 9847 Dec, Diarrhea R19.7 [facility] [id number] [place] [address] 56533- 4036 Nov, [facility] [id number] [place] [address] 21842- 0573 Nov, [facility] [id number] [place] [address] 13076- 6034 Oct, [facility] [id number] [place] [address] 52915- 3436 Sep, Postnasal drip R09.82 [facility] [id number] [place] [address] 90502- 4140 Sep, [facility] [address], [place] [address]- 2369 Sep, [facility] [id number] [place] [address] 26739- 3531 14 Aug, 2015 [facility] [id number] [place] [address] 78421- 0819 08 Aug, 2015 [facility] [id number] [place] [address] 81304- 4247 Jul, Hypothyroidism 244.9 [facility] [place] [facility] [address], [place] [address]- 1014 23 Jul, 2015 Diabetes mellitus without mention of complication, type II or unspecified type, not stated as uncontrolled 250.00 [facility] [address], [place] [address]- 6435 14 Jul, 2015 [facility] [id number] [place] [address] 65300- 0354 14 Jul, 2015 [facility] [id number] [place] [address] 34733- 4703 Jun, [facility] [id number] [place] [address] 29037- 2698 May, Other chronic pain 338.29 [facility] [id number] [place] [address] 39021- 3122 May, Other chronic pain 338.29 [facility] [id number] [place] [address] 43054- 1946 May, [facility] [id number] [place] [address] 89864- 0387 May, [facility] [id number] [place] [address] 93988- 6783 Apr, Rash 782.1 ; Hypercholesterolemia 272.0 and Hypothyroidism 244.9 [facility] [id number] [place] [address] 31659- 8973 Apr, [facility] [id number] [place] [address] 72608- 4740 Apr, [facility] [id number] [place] [address] 80673- 1562 March, [facility] [id number] [place] [address] 66920- 9226 Feb, [facility] [id number] [place] [address] 41556- 4121 Feb, [facility] [place] [facility] [address] [id number] [place] [address]- 7626 Jan, [facility] [place] [facility] [address] [id number] [place] [address]- 7829 Jan, [facility] [place] [facility] [address] [id number] [place] [address]- 7614 Jan, [facility] [place] [facility] [address] [id number] [place] [address]- 4556 Jan, [facility] [place] [facility] [address] [id number] [place] [address]- 1229 Jan, [facility] [place] [facility] [address] [id number] [place] [address]- 8135 Jan, [facility] [place] [facility] [address] [id number] [place] [address]- 6637 Jan, [facility] [place] [facility] [address] [id number] [place] [address]- 8730 Dec, [facility] [place] [facility] [address] [id number] [place] [address]- 9698 Dec, [facility] [place] [facility] [address] [id number] [place] [address]- 7141 Nov, [facility] [place] [facility] [address] [id number] [place] [address]- 3150 Nov, [facility] [place] [facility] [address] [id number] [place] [address]- 2580 Nov, [facility] [place] [facility] [address] [id number] [place] [address]- 4379 Nov, [facility] [place] [facility] [address] [id number] [place] [address]- 6584 Nov, [facility] [place] [facility] [address] [id number] [place] [address]- 7442 Nov, [facility] [place] [facility] [address] [id number] [place] [address]- 3987 Oct, [facility] [place] [facility] [address] [id number] [place] [address]- 6436 Oct, [facility] [place] [facility] [address] [id number] [place] [address]- 5192 Sep, [facility] [place] [facility] [address] [id number] [place] [address]- 6185 Sep, [facility] [place] [facility] [address] [id number] [place] [address]- 0701 Sep, [facility] [place] [facility] [address] [id number] [place] [address]- 8111 Sep, [facility] [place] [facility] [address] [id number] [place] [address]- 2463 Aug, [facility] [place] [facility] [address] [id number] [place] [address]- 7710 Aug, [facility] [place] [facility] [address] [id number] [place] [address]- 9635 Jul, [facility] [place] [facility] [address] [id number] [place] [address]- 6239 Jul, [facility] [place] [facility] [address] [id number] [place] [address]- 9355 Jun, [facility] [place] [facility] [address] [id number] [place] [address]- 1340 Jun, [facility] [place] [facility] [address] [id number] [place] [address]- 8356 Jun, [facility] [place] [facility] [address] [id number] [place] [address]- 2636 Jun, [facility] [place] [facility] [address] [id number] [place] [address]- 1698 May, [facility] [place] [facility] [address] [id number] [place] [address]- 3841 May, [facility] [place] [facility] [address] [id number] [place] [address]- 5662 May, [facility] [address] [id number] [place] [address]- 4444 May, [facility] [place] [facility] [address] [id number] [place] [address]- 2348 Apr, [facility] [address] [id number] [place] [address]- 1857 Apr, [facility] [place] [facility] [address] [id number] [place] [address]- 4335 March, [facility] [address] [id number] [place] [address]- 7916 March, [facility] [place] [facility] [address] [id number] [place] [address]- 2497 March, [facility] [address] [id number] [place] [address]- 0341 March, [facility] [address] [id number] [place] [address]- 6543 March, [facility] [place] [facility] [address] [id number] [place] [address]- 2856 March, [facility] [address] [id number] [place] [address]- 3171 Feb, [facility] [place] [facility] [address] [id number] [place] [address]- 7639 Feb, [facility] [place] [facility] [address] [id number] [place] [address]- 7270 Feb, [facility] [place] [facility] [address] [id number] [place] [address]- 6253 Feb, [facility] [place] [facility] [address] [id number] [place] [address]- 3794 Feb, [facility] [place] [facility] [address] [id number] [place] [address]- 4592 Feb, [facility] [place] [facility] [address] [id number] [place] [address]- 4754 Feb, [facility] [place] [facility] [address] [id number] [place] [address]- 4841 Feb, [facility] [place] [facility] [address] [id number] [place] [address]- 7924 Jan, [facility] [place] [facility] [address] [id number] [place] [address]- 1170 Jan, [facility] [place] [facility] [address] [id number] [place] [address]- 0316 Jan, [facility] [place] [facility] [address] [id number] [place] [address]- 3950 Jan, [facility] [place] [facility] [address] [id number] [place] [address]- 1396 Jan, [facility] [place] [facility] [address] [id number] [place] [address]- 5457 Jan, [facility] [place] [facility] [address] [id number] [place] [address]- 3869 Jan, [facility] [place] [facility] [address] [id number] [place] [address]- 0815 Jan, [facility] [place] [facility] [address] [id number] [place] [address]- 2806 Jan, [facility] [place] [facility] [address] [id number] [place] [address]- 3391 Dec, [facility] [place] [facility] [address] [id number] [place] [address]- 7519 Dec, [facility] [place] [facility] [address] [id number] [place] [address]- 8447 Nov, [facility] [place] [facility] [address] [id number] [place] [address] Nov, [facility] [place] [facility] [address] [id number] [place] [address] Nov, [facility] [address] [id number] [place] [address] Nov, [facility] [place] [facility] [address] [id number] [place] [address] Nov, [facility] [place] [facility] [address] [id number] [place] [address] Nov, [facility] [place] [facility] [address] [id number] [place] [address] Oct, [facility] [place] [facility] [address] [id number] [place] [address] Oct, [facility] [place] [facility] [address] [id number] [place] [address] Sep, [facility] [place] [facility] [address] [id number] [place] [address] Sep, [facility] [place] [facility] [address] [id number] [place] [address] Sep, [facility] [place] [facility] [address] [id number] [place] [address] Sep, [facility] [place] [facility] [address] [id number] [place] [address] Sep, [facility] [place] [facility] [address] [id number] [place] [address] Sep, [facility] [place] [facility] [address] [id number] [place] [address] Sep, [facility] [place] [facility] [address] [id number] [place] [address] Sep, [facility] [place] [facility] [address] [id number] [place] [address] Aug, [facility] [place] [facility] [address] [id number] [place] [address] Aug, [facility] [place] [facility] [address] [id number] [place] [address] Aug, [facility] [place] [facility] [address] [id number] [place] [address] Jul, [facility] [place] [facility] [address] [id number] [place] [address] Jul, [facility] [place] [facility] [address] [id number] [place] [address] Jul, [facility] [place] [facility] [address] [id number] [place] [address] Jun, [facility] [place] [facility] [address] [id number] [place] [address] Jun, [facility] [place] [facility] [address] [id number] [place] [address] Jun, [facility] [place] [facility] [address] [id number] [place] [address] Jun, [facility] [place] [facility] [address] [id number] [place] [address] Jun, [facility] [place] [facility] [address] [id number] [place] [address] Jun, [facility] [place] [facility] [address] [id number] [place] [address] May, [facility] [place] [facility] [address] [id number] [place] [address] May, [facility] [place] [facility] [address] [id number] [place] [address] Apr, [facility] [place] [facility] [address] [id number] [place] [address] Apr, [facility] [place] [facility] [address] [id number] [place] [address] March, [facility] [place] [facility] [address] [id number] [place] [address] 23 Feb, 2013 [facility] [address] [id number] [place] [address] 17 Feb, 2013 [facility] [place] [facility] [address] [id number] [place] [address] 16 Feb, 2013 [facility] [place] [facility] [address] [id number] [place] [address] Feb, [facility] [place] [facility] [address] [id number] [place] [address] Jan, [facility] [place] [facility] [address] [id number] [place] [address] Jan, [facility] [place] [facility] [address] [id number] [place] [address] Jan, [facility] [place] [facility] [address] [id number] [place] [address] Jan, [facility] [place] [facility] [address] [id number] [place] [address] 05 Jan, 2013 [facility] [address] [id number] [place] [address] Dec, [facility] [place] [facility] [address] [id number] [place] [address] Nov, [facility] [address] [id number] [place] [address] Nov, [facility] [place] [facility] [address] [id number] [place] [address] Oct, [facility] [place] [facility] [address] [id number] [place] [address] Oct, [facility] [place] [facility] [address] [id number] [place] [address] Oct, [facility] [place] [facility] [address] [id number] [place] [address] Oct, [facility] [place] [facility] [address] [id number] [place] [address] Oct, [facility] [place] [facility] [address] [id number] [place] [address] Oct, [facility] [place] [facility] [address] [id number] [place] [address] 1467 Oct, [facility] [address] [id number] [place] [address] Oct, [facility] [place] [facility] [address] [id number] [place] [address] Aug, [facility] [place] [facility] [address] [id number] [place] [address], [place] [address]- [address]342 30 Aug, 2012 [facility] [place] [facility] [address] [id number] [place] [address]18 Aug, [facility] [place] [facility] [address] [id number] [place] [address] 96[address] Aug, [facility] [place] [facility] [address] [id number] [place] [address] Aug, [facility] [place] [facility] [address] [id number] [place] [address] 19 Aug, 2012 [facility] [address] [facility] [id number] [place] [address]661 15 Aug, 2012 [facility] [place] [facility] [address] [id number] [place] [address]- [address] 27 Jul, 2011 [facility] [place] [facility] [address] [id number] [place] [address] 4330 27 Jul, 2012 [facility] [place] [facility] [address] [id number] [place] [address] 97[address] 27 Jul, 2011 [facility] [place] [facility] [address] [id number] [place] [address] 4008 27 Jul, 2011 [facility] [place] [facility] [address] [id number] [place] [address]- [address] Jul, [facility] [place] [facility] [address] [id number] [place] [address] 39[address] Jun, [facility] [place] [facility] [address] [id number] [place] [address] 28[address] Jun, [facility] [place] [facility] [address] [id number] [place] [address] 6865 Jun, [facility] [place] [facility] [address] [id number] [place] [address] 120[address] May, [facility] [place] [facility] [address] [id number] [place] [address] 59[address] May, [facility] [place] [facility] [address] [id number] [place] [address] 0[address] May, [facility] [place] [facility] [address] [id number] [place] [address] 75[address] May, [facility] [place] [facility] [address] [id number] [place] [address] 2542 May, [facility] [place] [facility] [address] [id number] [place] [address]- 7847 May, [facility] [place] [facility] [address] [id number] [place] [address] 1777 May, [facility] [place] [facility] [address] [id number] [place] [address] 8727 Apr, [facility] [place] [facility] [address] [id number] [place] [address] 60[address] Apr, [facility] [place] [facility] [address] [id number] [place] [address] March, [facility] [place] [facility] [address] [id number] [place] [address] 8416 Feb, [facility] [place] [facility] [address] [id number] [place] [address] Jan, [facility] [place] [facility] [address] [id number] [place] [address] 28 Jan, 2012 [facility] [place] [facility] [address] [id number] [place] [address] 28 Jan, 2012 [facility] [place] [facility] [address] [id number] [place] [address]- 7366 28 Jan, 2012 [facility] [place] [facility] [address] [id number] [place] [address]- 4846 Jan, [facility] [place] [facility] [address] [id number] [place] [address]707 28 Jan, 2012 [facility] [place] [facility] [address] [id number] [place] [address]- 7485 Jan, [facility] [place] [facility] [address] [id number] [place] [address]- 6079 Jan, [facility] [place] [facility] [address] [id number] [place] [address] 4[address] Jan, [facility] [place] [facility] [address] [id number] [place] [address]- 2820 28 Jan, 2012 [facility] [place] [facility] [address] [id number] [place] [address] 4087 Dec, [facility] [place] [facility] [address] [facility] [id number] [place] [address]- 4[address] Dec, [facility] [place] [facility] [id number] [address] 27 Dec, 2011 [facility] [place] [facility] [address] [facility] [id number] [place] [address] 2546 27 Dec, 2011 [facility] [place] [facility] [address] [id number] [place] [address]- 0976 27 Dec, 2011 [facility] [place] [facility] [address] [facility] [id number] [place] [address]- 7086 17 Dec, 2011 [facility] [place] [facility] [address] [facility] [id number] [place] [address]- 5208 10 Dec, 2011 [facility] [address] [facility] [id number], [place] [address] Dec, [facility] [address] [id number], [place] [address] Nov, [facility] [address] [id number], [place] [address] Nov, [facility] [id number], [place] [address] Nov, [facility] [address] [id number], [place] [address] Oct, [facility] [id number], [place] [address] Oct, [facility] [address] [id number], [place] [address] Oct, [facility] [address] [id number], [place] [address] Oct, [facility] [address] [facility] [id number], [place] [address] Sep, IMMUNIZATIONS No Known Immunizations SOCIAL HISTORY Never Assessed REASON FOR VISIT Medicare AWV - Initial Visit----Alexandrea PLAN OF CARE Activity Details Follow Up 1 Year Reason: VITAL SIGNS Height 64 in 2018-02-25 Weight 208 lbs 2018-02-25 Temperature 97.6 degrees Fahrenheit 2018-02-25 Heart Rate 80 bpm 2018-02-25 Respiratory Rate 20 2018-02-25 BMI 35.70 kg/m2 2018-02-25 Blood pressure systolic 124 mmHg 2018-02-25 Blood pressure diastolic 80 mmHg 2018-02-25 MEDICATIONS Medication Instructions Dosage Frequency Start Date End Date Duration Status Promethazine-Codeine 6.25-10 MG/5ML Orally every 6 hrs PRN cough 5 ml Active Blood Glucose Test - In Vitro 2 times a day test blood sugar 12h Active Levothyroxine Sodium 125 mcg Orally Once a day 1 tablet on an empty stomach in the morning 24h Active Clindamycin HCl 300 MG Orally 4 times a day 1 capsule 6h Feb, 16 Feb, 2018 10 days Active Ranitidine HCl 150 MG Orally Twice a day 1 tablet 12h Active Myrbetriq 50 MG TAKE ONE TABLET BY MOUTH ONCE DAILY Apr, 30 Active Cetirizine HCl 10 MG TAKE ONE TABLET BY MOUTH ONCE DAILY 30 Active Montelukast Sodium 10 MG 1 tablet 24h 30 Active Ropinirole HCl 4 MG TAKE ONE TABLET BY MOUTH ONCE DAILY 90 Active Blood Glucose Monitor System w/Device subcutaneously 2 times a day test blood sugar 12h Active Metformin HCl 500 MG TAKE TWO TABLETS BY MOUTH TWICE DAILY 90 Active Crestor 40 MG Orally Once a day 1 tablet 24h 30 Active Sklice 0.5 % Externally Once a day Apply 2 grams to affected area 24h Feb, 1 dose Active Zofran 4 MG Orally 3 times a day 1 tablet 8h 10 Active Terbinafine HCl 1 % Externally Twice a day 1 application to affected area 12h Feb, Active [place] 10-325 MG Orally every 6 hrs 1 tablet as needed 6h Jan, 28 days Active RESULTS No Results PROCEDURES Procedure Date Ordered Result Body Site [facility] VISIT IPPE/AWV February 25, 2018 ANNUAL LUCIANO VST; WAGNER PPS INIT February 25, 2018 PT TOBACCO SCREEN RCVD TLK February 25, 2018 FALL RISK ASSESSMENT DOCD February 25, 2018 [facility] VISIT ESTABLISHED PATIENT February 25, 2018 INSTRUCTIONS MEDICATIONS ADMINISTERED No Known Medications [...] intraocular lens prosthesis Hospitalization History admitted to [facility] for bronchitis then went into cardiac arrest and was resuscitated. She was in the hospital for 7 days. 2012 Hospitalization History surgeries
[2019-01-08] VITALS (26 sets, daily range): BP systolic 99–140; BP diastolic 46–79
--- OUTSIDE RECORDS SUMMARY | 2019-01-08 | XMS REPORT ---
Author Author NALINI GOMEZ Organization [facility] Address [address] [place] [address] Care Team Providers Care Odd Jobs Day Worker Name Role Phone NALINI GOMEZ Unavailable PROBLEMS Type Condition ICD9-CM Code NGO71-DL Code Onset Dates Condition Status SNOMED Code Problem Type 2 diabetes mellitus without complications E11.9 Active 170622889 Problem Other chronic pain G89.29 Active 90581405 Problem Controlled type 2 diabetes mellitus without complication, without long -term current use of insulin E11.9 Active 443793690 Problem Panlobular emphysema J43.1 Active 1321851 Problem Hypercholesterolemia 272.0 Active 94707151 Problem Mixed hyperlipidemia E78.2 Active 828259742 Problem Urinary, incontinence, stress female N39.3 Active 83061229 Problem Acquired hypothyroidism E03.9 Active 661860562 Problem Hypothyroidism, unspecified E03.9 Active 75168897 Problem Episode of recurrent major depressive disorder, unspecified depression episode severity F33.9 Active 184228810 Problem Hypothyroidism (acquired) E03.9 Active 45123949 ALLERGIES No Information ENCOUNTERS Encounter Location Date Diagnosis [facility] [id number] [place] [address] 21399- 2300 Jun, [facility] [id number] [place] [address] 18564- 4138 May, Acute diffuse otitis externa of left ear H60.312 and Acquired hypothyroidism E03.9 [facility] [id number] [place] [address] 53882- 0910 May, Episode of recurrent major depressive disorder, unspecified depression episode severity F33.9 ; Urinary, incontinence, stress female N39.3 ; Mixed hyperlipidemia E78.2 and Hypothyroidism (acquired) E03.9 [facility] [id number] [place] [address] 44480- 6687 May, [facility] [id number] [place] [address] 75134- 2390 May, Viral gastroenteritis A08.4 [facility] [id number] [place] [address] 74951- 3096 Apr, Acute diffuse otitis externa of left ear H60.312 and Hypothyroidism (acquired) E03.9 [facility] [address] 48131- 3810 Apr, Viral gastroenteritis A08.4 and Acquired hypothyroidism E03.9 [facility] [id number] [place] [address] 16982- 3208 Apr, Type 2 diabetes mellitus without complications E11.9 and Panlobular emphysema J43.1 [facility] [id number] [place] [address] 85472- 9264 Apr, Viral gastroenteritis A08.4 [facility] [id number] [place] [address] 66985- 3010 March, [facility] [id number] [place] [address] 75523- 9913 March, Viral gastroenteritis A08.4 [facility] [id number] [place] [address] 63425- 0089 Feb, Panlobular emphysema J43.1 [facility] [id number] [place] [address] 00354- 0160 Feb, Panlobular emphysema J43.1 [facility] [id number] [place] [address] 46767- 7654 Feb, [facility] [address] 44955- 0246 Feb, [facility] [id number] [place] [address] 65478- 0165 Feb, Viral gastroenteritis A08.4 [facility] [id number] [place] [address] 68608- 1276 Feb, Head lice B85.0 [facility] [id number] [place] [address] 65665- 3275 Feb, Medicare annual wellness visit, initial Z00.00 ; Head lice B85.0 ; Tinea corporis B35.4 and Enlarged lymph node R59.9 [facility] [address] 78400- 4581 Jan, Viral gastroenteritis A08.4 [facility] [address] 84644- 8718 Jan, [facility] [address] 47738- 5788 Dec, Controlled type 2 diabetes mellitus without complication, without long-term current use of insulin E11.9 [facility] [address] 80507- 0339 Dec, [facility] [id number] [place] [address] 33398- 2318 Dec, Viral gastroenteritis A08.4 [facility] [id number] [place] [address] 18102- 1870 Nov, Viral gastroenteritis A08.4 [facility] [id number] [place] [address] 62493- 6386 Oct, Acute upper respiratory infection, unspecified J06.9 and Other viral agents as the cause of diseases classified elsewhere B97.89 [facility] [id number] [place] [address] 37074- 9234 Oct, Viral gastroenteritis A08.4 [facility] [id number] [place] [address] 51953- 2442 Oct, Controlled type 2 diabetes mellitus without complication, without long-term current use of insulin E11.9 ; Encounter for immunization Z23 and Acute pain of left foot M79.672 [facility] [id number] [place] [address] 85967- 7355 Sep, Viral gastroenteritis A08.4 [facility] [id number] [place] [address] 38761- 9177 Aug, Viral gastroenteritis A08.4 [facility] [id number] [place] [address] 88693- 7365 Jul, Viral gastroenteritis A08.4 [facility] [id number] [place] [address] 89803 -4279 Jul, Acute nasopharyngitis (common cold) J00 [facility] [id number] [place] [address] 78216- 3994 Jun, Viral gastroenteritis A08.4 [facility] [id number] [place] [address] 96330- 4162 Jun, [facility] [id number] [place] [address] 45561- 3002 Jun, Viral gastroenteritis A08.4 [facility] [id number] [place] [address] 46015- 3803 May, Patellar tendinitis, left knee M76.52 [facility] [id number] [place] [address] 73956- 8153 May, Viral gastroenteritis A08.4 [facility] [id number] [place] [address] 77920- 6534 Apr, Viral gastroenteritis A08.4 and Hypothyroidism, unspecified E03.9 [facility] [id number] [place] [address] 73455- 5190 15 Apr, 2017 Pain in left knee M25.562 ; Acute left-sided low back pain without sciatica M54.5 and Type 2 diabetes mellitus without complications E11.9 [facility] [address] [place] [address] 88890- 8937 07 Apr, 2017 Viral gastroenteritis A08.4 [facility] [id number] [place] [address] 32167- 3803 March, Viral gastroenteritis A08.4 [facility] [address] [address]1698 Feb, Acute pain of left knee M25.562 [facility] [id number] [place] [address] 01399- 1676 13 Feb, 2017 Viral gastroenteritis A08.4 [facility] [id number] [place] [address] 69800- 7098 16 Jan, 2017 Viral gastroenteritis A08.4 and Controlled type 2 diabetes mellitus without complication, without long-term current use of insulin E11.9 [facility] [id number] [place] [address] 96894- 1494 14 Jan, 2017 [facility] [id number] [place] [address] 95126- 2531 16 Dec, 2016 Other chronic pain G89.29 ; Pain in left knee M25.562 ; Controlled type 2 diabetes mellitus without complication, without long-term current use of insulin E11.9 and Acute cystitis with hematuria N30.01 [facility] [address] [place] [address] 84310- 5335 Dec, [facility] [address] [place] [address] 80635- 9677 Nov, Type 2 diabetes mellitus without complications E11.9 [facility] [id number] [place] [address] 99330- 5008 Nov, [facility] [id number] [place] [address] 43803- 7380 Oct, [facility] [id number] [place] [address] 19751- 9863 Sep, [facility] [id number] [place] [address] 24157- 1099 Aug, [facility] [id number] [place] [address] 72712- 4760 Aug, [facility] [id number] [place] [address] 14401- 3212 Jul, Controlled type 2 diabetes mellitus without complication, without long-term current use of insulin E11.9 ; Callus of foot L84 and URI, acute J06.9 [facility] [address] 83194- 5515 Jul, [facility] [address] 42027- 2267 Jun, Onychomycosis B35.1 and Nail ingrowing L60.0 [facility] [address] 43001- 9184 Jun, [facility] [address] 49175- 9487 Jun, Lumbar back pain with radiculopathy affecting left lower extremity M54.17 [facility] [address] 41245- 8190 Jun, [facility] [address] 51725- 7504 Jun, Other chronic pain G89.29 [facility] [address] 45275- 2304 Jun, Other chronic pain G89.29 [facility] [id number] [place] [address] 40502- 3000 Jun, Type 2 diabetes mellitus without complications E11.9 [facility] [id number] [place] [address] 17790- 8429 Jun, [facility] [address] 93907- 7549 Jun, Onychomycosis B35.1 ; Callus L84 and Rash R21 [facility] [id number] [place] [address] 83270- 7157 May, [facility] [address] [address]- 6280 May, [facility] [id number] [place] [address] 37115- 1506 May, Type 2 diabetes mellitus without complications E11.9 [facility] [address] [address]- 3009 May, [facility] [id number] [place] [address] 08773- 5149 Apr, [facility] [address] [place] [address] 03704- 9390 Apr, Type 2 diabetes mellitus without complications E11.9 ; Acquired hypothyroidism E03.9 ; Callus of foot L84 and Upper respiratory tract infection, unspecified type J06.9 [facility] [address] [address]- 8516 March, [facility] [address] [address]- 1420 Feb, [facility] [id number] [place] [address] 81733- 4714 Jan, Diabetes mellitus without mention of complication, type II or unspecified type, not stated as uncontrolled 250.00 [facility] [address] [address]- 8084 Jan, [facility] [address] [address]- 1944 Jan, Diabetes E11.9 and Hypothyroidism E03.9 [facility] [address] [address]- 0810 Dec, Diarrhea R19.7 [facility] [address] [address]- 0231 Dec, [facility] [address] [address]- 8688 Dec, Hypothyroidism, unspecified E03.9 [facility] [address] [address] 2546 12 Dec, 2015 [facility] [id number] [place] [address] 42029 2546 Dec, Hypothyroidism, unspecified E03.9 [facility] [address] [address] 2546 04 Dec, 2015 Diarrhea R19.7 [facility] [id number] [place] [address] 67866- 2546 Dec, Diarrhea R19.7 [facility] [id number] [place] [address] 02366 2546 Nov, [facility] [id number] [place] [address] 02679 2546 Nov, [facility] [id number] [place] [address] 70150 2546 Oct, [facility] [id number] [place] [address] 90692- 6111 Sep, Postnasal drip R09.82 [facility] [id number] [place] [address] 52354- 4749 Sep, [facility] [address] [address]- 4660 Sep, [facility] [id number] [place] [address] 29689- 0414 Aug, [facility] [address] [address] 2546 Aug, [facility] [id number] [place] [address] 29093- 6336 Jul, Hypothyroidism 244.9 [facility] [id number] 9290 Jul, Diabetes mellitus without mention of complication, type II or unspecified type, not stated as uncontrolled 250.00 [facility] [address] [address]- 6586 14 Jul, 2015 [facility] [id number] [place] [address] 20786- 2998 14 Jul, 2015 [facility] [address] [address]- 4020 Jun, [facility] [id number] [place] [address] 37207- 1653 May, Other chronic pain 338.29 [facility] [id number] [place] [address] 526078- 0299 10 May, 2015 Other chronic pain 338.29 [facility] [id number] [place] [address] 09159- 8657 09 May, 2015 [facility] [id number] [place] [address] 86003- 5248 May, [facility] [id number] [place] [address] 04048- 7226 Apr, Rash 782.1 ; Hypercholesterolemia 272.0 and Hypothyroidism 244.9 [facility] [address] [address]- 3738 Apr, [facility] [address] [address]- 2201 Apr, [facility] [address] [address]- 3422 March, [facility] [address] [address]- 1824 Feb, [facility] [id number] [place] [address] 68080- 9798 Feb, [facility] [address] 9275 Jan, [facility] [id number] [place] [address] 97891- 0745 Jan, [facility] [place] [facility] [address] [id number] [place] [address]- 4533 Jan, [facility] [place] [facility] [address] [id number] [place] [address]- 0173 Jan, [facility] [place] [facility] [address] [id number] [place] [address]- 5229 Jan, [facility] [place] [facility] [address] [id number] [place] [address]- 4458 Jan, [facility] [place] [facility] [address] [id number] [place] [address]- 2899 Jan, [facility] [place] [facility] [address] [id number] [place] [address]- 9909 Dec, [facility] [place] [facility] [address] [id number] [place] [address]- 3384 Dec, [facility] [place] [facility] [address] [id number] [place] [address]- 3243 Nov, [facility] [place] [facility] [address] [id number] [place] [address]- 8233 Nov, [facility] [place] [facility] [address] [id number] [place] [address]- 2335 Nov, [facility] [place] [facility] [address] [id number] [address]- 5706 Nov, [facility] [place] [facility] [address] [id number] [place] [address]- 8064 Nov, [facility] [place] [facility] [address] [id number] [place] [address]- 7501 Nov, [facility] [place] [facility] [address] [id number] [place] [address]- 5334 Oct, [facility] [place] [facility] [address] [id number] [place] [address]- 0782 Oct, [facility] [place] [facility] [address] [id number] [place] [address]- 3834 Sep, [facility] [place] [facility] [address] [id number] [place] [address]- 8767 Sep, [facility] [place] [facility] [address] [id number] [place] [address]- 4738 Sep, [facility] [place] [facility] [address] [id number] [place] [address]- 8823 Sep, [facility] [place] [facility] [address] [id number] [place] [address]- 2472 Aug, [facility] [place] [facility] [address] [id number] [place] [address]- 5429 Aug, [facility] [place] [facility] [address] [id number] [place] [address]- 6220 Jul, [facility] [place] [facility] [address] [id number] [place] [address]- 2975 Jul, [facility] [place] [facility] [address] [id number] [place] [address]- 4420 Jun, [facility] [place] [facility] [address] [id number] [place] [address]- 5991 Jun, [facility] [place] [facility] [address] [id number] [place] [address]- 4442 Jun, [facility] [place] [facility] [address] [id number] [place] [address]- 2930 Jun, [facility] [place] [facility] [address] [id number] [place] [address]- 6913 May, [facility] [place] [facility] [address] [id number] [place] [address]- 3201 May, [facility] [place] [facility] [address] [id number] [place] [address]- 7536 May, [facility] [place] [facility] [address] [id number] [place] [address]- 8507 May, [facility] [place] [facility] [address] [id number] [place] [address]- 4033 Apr, [facility] [place] [facility] [address] [id number] [place] [address]- 7689 Apr, [facility] [place] [facility] [address] [id number] [place] [address]- 8502 March, [facility] [place] [facility] [address] [id number] [place] [address]- 4501 March, [facility] [place] [facility] [address] [id number] [place] [address]- 3604 March, [facility] [place] [facility] [address] [id number] [place] [address]- 5858 March, [facility] [place] [facility] [address] [id number] [place] [address]- 4615 March, [facility] [place] [facility] [address] [id number] [place] [address]- 4175 March, [facility] [place] [facility] [address] [id number] [place] [address]- 1851 Feb, [facility] [place] [facility] [address] [id number] [place] [address]- 0472 Feb, [facility] [place] [facility] [address] [id number] [place] [address]- 4441 Feb, [facility] [place] [facility] [address] [id number] [place] [address]- 5210 Feb, [facility] [place] [facility] [address] [id number] [place] [address]- 0015 Feb, [facility] [place] [facility] [address] [id number] [place] [address]- 9778 Feb, [facility] [place] [facility] [address] [id number] [place] [address]- 5385 Feb, [facility] [place] [facility] [address] [id number] [place] [address]- 3163 Feb, [facility] [place] [facility] [address] [id number] [place] [address]- 1875 Jan, [facility] [place] [facility] [address] [id number] [place] [address]- 6808 Jan, [facility] [place] [facility] [address] [id number] [place] [address]- 7067 Jan, [facility] [place] [facility] [address] [id number] [place] [address]- 7572 Jan, [facility] [place] [facility] [address] [id number] [place] [address]- 2335 Jan, [facility] [place] [facility] [address] [id number] [place] [address]- 6572 Jan, [facility] [place] [facility] [address] [id number] [place] [address]- 7637 Jan, [facility] [place] [facility] [address] [id number] [place] [address]- 5156 Jan, [facility] [place] [facility] [address] [id number] [place] [address]- 3821 Jan, [facility] [place] [facility] [address] [id number] [place] [address]- 8766 Dec, [facility] [place] [facility] [address] [id number] [place] [address]- 2111 Dec, [facility] [place] [facility] [address] [id number] [place] [address]- 4925 Nov, [facility] [place] [facility] [address] [id number] [place] [address]- 6085 Nov, [facility] [place] [facility] [address] [id number] [place] [address]- 1170 Nov, [facility] [place] [facility] [address] [id number] [place] [address]- 7187 Nov, [facility] [place] [facility] [address] [id number] [place] [address]- 4875 Nov, [facility] [place] [facility] [address] [id number] [place] [address]- 2270 Nov, [facility] [place] [facility] [address] [id number] [place] [address]- 9360 Oct, [facility] [place] [facility] [address] [id number] [place] [address]- 7968 Oct, [facility] [address] [id number] [place] [address] Sep, [facility] [place] [facility] [address] [id number] [place] [address] Sep, [facility] [address] [id number] [place] [address] Sep, [facility] [place] [facility] [address] [id number] [place] [address] Sep, [facility] [place] [facility] [address] [id number] [place] [address] Sep, [facility] [place] [facility] [address] [id number] [place] [address] Sep, [facility] [place] [facility] [address] [id number] [place] [address] Sep, [facility] [place] [facility] [address] [id number] [address] Sep, [facility] [place] [facility] [address] [id number] [place] [address] Aug, [facility] [place] [facility] [address] [id number] [place] [address] Aug, [facility] [place] [facility] [address] [id number] [place] [address] Aug, [facility] [place] [facility] [address] [id number] [address] Jul, [facility] [address] [id number] [place] [address] Jul, [facility] [place] [facility] [address] [id number] [place] [address] Jul, [facility] [place] [facility] [address] [id number] [place] [address] Jun, [facility] [place] [facility] [address] [id number] [place] [address] Jun, [facility] [place] [facility] [address] [id number] [place] [address] Jun, [facility] [place] [facility] [address] [id number] [place] [address] Jun, [facility] [place] [facility] [address] [id number] [place] [address] Jun, [facility] [place] [facility] [address] [id number] [place] [address] Jun, [facility] [place] [facility] [address] [id number] [place] [address] May, [facility] [place] [facility] [address] [id number] [place] [address] May, [facility] [place] [facility] [address] [id number] [place] [address] Apr, [facility] [place] [facility] [address] [id number] [place] [address] Apr, [facility] [place] [facility] [address] [id number] [place] [address] March, [facility] [place] [facility] [address] [id number] [place] [address] Feb, [facility] [place] [facility] [address] [id number] [place] [address] Feb, [facility] [place] [facility] [address] [id number] [place] [address] 16 Feb, 2013 [facility] [address] [id number] [place] [address] 11 Feb, 2013 [facility] [address] [id number] [place] [address] Jan, [facility] [address] [address] [id number] [place] [address] Jan, [facility] [address] [id number] [place] [address] Jan, [facility] [address] [id number] [place] [address] Jan, [facility] [address] [id number] [place] [address] 05 Jan, 2013 [facility] [address] [id number] [place] [address] Dec, [facility] [address] [id number] [place] [address] Nov, [facility] [address] [id number] [place] [address] Nov, [facility] [address] [id number] [place] [address] Oct, [facility] [address] [id number] [place] [address] Oct, [facility] [address] [id number] [place] [address] Oct, [facility] [address] [id number] [place] [address] Oct, [facility] [address] [id number] [place] [address] Oct, [facility] [address] [id number] [place] [address] Oct, [facility] [place] [facility] [address] [id number] [place] [address] Oct, [facility] [place] [facility] [address] [id number] [place] [address] Oct, [facility] [place] [facility] [address] [id number] [place] [address] Aug, [facility] [place] [facility] [address] [id number] [place] [address] 30 Aug, 2012 [facility] [place] [facility] [address] [id number] [place] [address] Aug, [facility] [place] [facility] [address] [id number] [place] [address] Aug, [facility] [place] [facility] [address] [id number] [place] [address] Aug, [facility] [place] [facility] [address] [id number] [place] [address] Aug, [facility] [place] [facility] [address] [id number] [place] [address] 15 Aug, 2012 [facility] [place] [facility] [address] [id number] [place] [address] 27 Jul, 2012 [facility] [place] [facility] [address] [id number] [place] [address] 27 Jul, 2012 [facility] [place] [facility] [address] [id number] [place] [address] 27 Jul, 2012 [facility] [place] [facility] [address] [id number] [place] [address]- [address]14 27 Jul, 2012 [facility] [place] [facility] [address] [id number] [place] [address] 03 Jul, 2012 [facility] [place] [facility] [address] [id number] [place] [address] 28 Jun, 2012 [facility] [place] [facility] [address] [id number] [place] [address] Jun, [facility] [place] [facility] [address] [id number] [place] [address] Jun, [facility] [place] [facility] [address] [id number] [place] [address] May, [facility] [place] [facility] [address] [id number] [place] [address] May, [facility] [place] [facility] [address] [id number] [place] [address] May, [facility] [place] [facility] [address] [id number] [place] [address] May, [facility] [place] [facility] [address] [id number] [place] [address] May, [facility] [place] [facility] [address] [id number] [place] [address] 130[address] May, [facility] [place] [facility] [address] [id number] [place] [address] May, [facility] [place] [facility] [address] [id number] [place] [address] Apr, [facility] [place] [facility] [address] [id number] [place] [address] Apr, [facility] [place] [facility] [address] [id number] [place] [address] 1986 March, [facility] [place] [facility] [address] [id number] [place] [address] Feb, [facility] [place] [facility] [address] [id number] [place] [address] 30 Jan, 2012 [facility] [place] [facility] [address] [id number] [place] [address] Jan, [facility] [place] [facility] [address] [id number] [place] [address] Jan, [facility] [place] [facility] [address] [id number] [place] [address] 4451 28 Jan, 2012 [facility] [place] [facility] [address] [id number] [place] [address] 2546 Jan, [facility] [place] [facility] [address] [id number] [place] [address] 2546 Jan, [facility] [place] [facility] [address] [id number] [place] [address] 25[address] Jan, [facility] [place] [facility] [address] [id number] [place] [address] 25[address] Jan, [facility] [place] [facility] [address] [id number] [place] [address]- [address] Jan, [facility] [place] [facility] [address] [id number] [place] [address]- 75[address] Jan, [facility] [place] [facility] [address] [id number] [place] [address]60 Dec, [facility] [place] [facility] [address] [id number] [place] [address] 2638 Dec, [facility] [place] [facility] [address] [id number] [place] [address]- [address]695 Dec, [facility] [place] [facility] [address] [id number] [place] [address]- [address] Dec, [facility] [place] [facility] [address] [id number] [place] [address]- [address] Dec, [facility] [place] [facility] [address] [id number] [place] [address]- 2546 Dec, [facility] [place] [facility] [address] [id number] [place] [address]- 2546 Dec, [facility] [place] [facility] [address] [id number] [place] [address] 2546 Dec, [facility] [place] [facility] [address] [id number] [address] 31 Nov, 2011 [facility] [id number] [address] 29 Nov, 2011 [facility] [id number] [address] Nov, [facility] [id number] [address] Oct, [facility] [id number] [place] [address] Oct, [facility] [id number] [place] [address] Oct, [facility] [id number] [place] [address] 2546 Oct, [facility] [id number] [place] [address]- [address] Sep, IMMUNIZATIONS No Known Immunizations SOCIAL HISTORY Never Assessed REASON FOR VISIT Prior Authorization Request PLAN OF CARE VITAL SIGNS MEDICATIONS Medication Instructions Dosage Frequency Start Date End Date Duration Status Natroba 0.9 % Externally one time, may repeat if needed apply contents of bottle to cover scalp and hair Feb, Active RESULTS No Results PROCEDURES No [...] intraocular lens prosthesis Hospitalization History admitted to [facility] for bronchitis then went into cardiac arrest and was resuscitated. She was in the hospital for 7 days. 2012 Hospitalization History surgeries
--- OUTSIDE RECORDS SUMMARY | 2019-01-08 00:01 | XMS REPORT ---
Author Author NALINI GOMEZ Organization [facility] Address [address] [place] [address] Care Team Providers Care Range Aid Name Role Phone NALINI GOMEZ Unavailable PROBLEMS Type Condition ICD9-CM Code [id number] Code Onset Dates Condition Status SNOMED Code Problem Hypercholesterolemia 272.0 Active 22865599 Problem Panlobular emphysema J43.1 Active 2271354 Problem Hypothyroidism (acquired) E03.9 Active 78143313 Problem Acquired hypothyroidism E03.9 Active 913581218 Problem Controlled type 2 diabetes mellitus without complication, without long -term current use of insulin E11.9 Active 063852764 Problem Type 2 diabetes mellitus without complications E11.9 Active 268483332 Problem Hypothyroidism, unspecified E03.9 Active 60992522 Problem Other chronic pain G89.29 Active 90084252 ALLERGIES No Information ENCOUNTERS Encounter Location Date Diagnosis [place] [address] [address]- [address]11 May, [place] [address] 87476- 1392 May, [place] [address] 73515- 9387 May, Viral gastroenteritis A08.4 [place] [address] 53183- 3298 Apr, Acute diffuse otitis externa of left ear H60.312 and Hypothyroidism (acquired) E03.9 [place] [address] 43[address]- 6345 Apr, Viral gastroenteritis A08.4 and Acquired hypothyroidism E03.9 [place] [address] 34961- 2312 Apr, Type 2 diabetes mellitus without complications E11.9 and Panlobular emphysema J43.1 [facility] [address] [place] [id number] [place] [address] 61425- 1680 Apr, Viral gastroenteritis A08.4 [facility] [address] [place] [id number] [place] [address] 16378- 4679 March, [facility] [address] [place] [id number] [place] [address] 67148- 7312 March, Viral gastroenteritis A08.4 [facility] [address] [place] [id number] [place] [address] 47261- 3012 Feb, Panlobular emphysema J43.1 [place] [address] [place] [id number] [place] [address] 48204- 3035 Feb, Panlobular emphysema J43.1 [place] [address] [place] [id number] [place] [address] 13079- 0648 Feb, [facility] [address] [place] [id number] [place] [address] 65724- 4627 Feb, [place] [address] [place] [id number] [place] [address] 22709- 6007 Feb, Viral gastroenteritis A08.4 [place] [address] [place] [id number] [place] [address] 11017- 9796 Feb, Head lice B85.0 [place] [address] [place] [id number] [place] [address] 08517- 9370 Feb, Medicare annual wellness visit, initial Z00.00 ; Head lice B85.0 ; Tinea corporis B35.4 and Enlarged lymph node R59.9 [place] [address] [place] [id number] [place] [address] 71683- 4533 Jan, Viral gastroenteritis A08.4 [place] [address] [place] [id number] [place] [address] 91217- 9244 Jan, [facility] [address] [place] [id number] [place] [address] 28429- 5733 Dec, Controlled type 2 diabetes mellitus without complication, without long-term current use of insulin E11.9 [place] [address] [place] [id number] [place] [address] 88123- 2408 Dec, [place] [address] [place] [id number] [place] [address] 63471- 1099 Dec, Viral gastroenteritis A08.4 [place] [address] [place] [id number] [place] [address] 49973- 9063 Nov, Viral gastroenteritis A08.4 [place] [address] [place] [id number] [place] [address] 77255- 8185 Oct, Acute upper respiratory infection, unspecified J06.9 and Other viral agents as the cause of diseases classified elsewhere B97.89 [place] [address] [place] [id number] [place] [address] 09090- 0346 Oct, Viral gastroenteritis A08.4 [place] [address] [place] [id number] [place] [address] 43686- 4584 Oct, Controlled type 2 diabetes mellitus without complication, without long-term current use of insulin E11.9 ; Encounter for immunization Z23 and Acute pain of left foot M79.672 [place] [address] [place] [id number] [place] [address] 09824- 6930 Sep, Viral gastroenteritis A08.4 [place] [address] [place] [id number] [place] [address] 24477- 6302 Aug, Viral gastroenteritis A08.4 [place] [address] [place] [id number] [place] [address] 56958- 2611 Jul, Viral gastroenteritis A08.4 [facility] [address] [place] [id number] [place] [address] 46092 -2754 Jul, Acute nasopharyngitis (common cold) J00 [place] [address] [place] [id number] [place] [address] 02447- 2167 Jun, Viral gastroenteritis A08.4 [place] [address] [address]- 4190 Jun, [place] [address] [place] [id number] [place] [address] 98996- 6841 Jun, Viral gastroenteritis A08.4 [place] [address] [place] [id number] [place] [address] 46487- 9104 May, Patellar tendinitis, left knee M76.52 [place] [address] [place] [id number] [place] [address] 26810- 6712 May, Viral gastroenteritis A08.4 [place] [address] [place] [id number] [place] [address] 45839- 0342 Apr, Viral gastroenteritis A08.4 and Hypothyroidism, unspecified E03.9 [place] [address] [place] [id number] [place] [address] 68829- 1720 Apr, Pain in left knee M25.562 ; Acute left-sided low back pain without sciatica M54.5 and Type 2 diabetes mellitus without complications E11.9 [place] [address] [place] [id number] [place] [address] 19599- 8772 Apr, Viral gastroenteritis A08.4 [place] [address] [place] [id number] [place] [address] 79200- 1770 March, Viral gastroenteritis A08.4 [facility] WALK IN [facility] [id number] [place] [address] 54346 -8379 Feb, Acute pain of left knee M25.562 [place] [id number] [place] [address] 76394- 2714 Feb, Viral gastroenteritis A08.4 [place] [address] [place] [id number] [place] [address] 05907- 9542 Jan, Viral gastroenteritis A08.4 and Controlled type 2 diabetes mellitus without complication, without long-term current use of insulin E11.9 [place] [address] [place] [id number] [place] [address] 71409- 7086 14 Jan, 2017 [place] [id number] [place] [address] 19422- 9438 16 Dec, 2016 Other chronic pain G89.29 ; Pain in left knee M25.562 ; Controlled type 2 diabetes mellitus without complication, without long-term current use of insulin E11.9 and Acute cystitis with hematuria N30.01 [place] [address] [place] [id number] [place] [address] 06747- 7475 Dec, [place] [address] [place] [id number] [place] [address] 77761- 4840 Nov, Type 2 diabetes mellitus without complications E11.9 [place] [address] [place] [id number] [place] [address] 47091- 8640 Nov, [place] [address] [place] [id number] [place] [address] 04033- 0133 Oct, [place] [address] [place] [id number] [place] [address] 90904- 5930 Sep, [place] [address] [place] [id number] [place] [address] 04084- 8445 Aug, [place] [address] [place] [id number] [place] [address] 00749- 7410 Aug, [place] [address] [place] [id number] [place] [address] 53424- 8078 Jul, Controlled type 2 diabetes mellitus without complication, without long-term current use of insulin E11.9 ; Callus of foot L84 and URI, acute J06.9 [place] [address] [place] [address] 39328- 4134 13 Jul, 2016 [place] [address] [place] [id number] [place] [address] 05350- 8810 Jun, Onychomycosis B35.1 and Nail ingrowing L60.0 [place] [address] [place] [id number] [place] [address] 92197- 2391 Jun, [facility] [id number] [place] [address] 24724- 6549 Jun, Lumbar back pain with radiculopathy affecting left lower extremity M54.17 [facility] [address] [place] [id number] [place] [address] 27808- 7861 Jun, [facility] [address] [place] [id number] [place] [address] 64287- 2144 Jun, Other chronic pain G89.29 [facility] [address] [place] [id number] [place] [address] 82366- 2802 Jun, Other chronic pain G89.29 [facility] [address] [place] [id number] [place] [address] 89992- 2050 Jun, Type 2 diabetes mellitus without complications E11.9 [facility] [address] [place] [id number] [place] [address] 42936- 0127 Jun, [facility] [address] [place] [id number] [place] [address] 52541- 5724 Jun, Onychomycosis B35.1 ; Callus L84 and Rash R21 [facility] [address] [place] [id number] [place] [address] 60209- 6669 May, [facility] [address] [place] [id number] [place] [address] 71433- 3380 May, [facility] [address] [place] [id number] [place] [address] 30709- 8022 May, Type 2 diabetes mellitus without complications E11.9 [facility] [address] [place] [id number] [place] [address] 88990- 9232 May, [facility] [address] [place] [id number] [place] [address] 28799- 5740 Apr, [facility] [address] [place] [id number] [place] [address] 92942- 0067 Apr, Type 2 diabetes mellitus without complications E11.9 ; Acquired hypothyroidism E03.9 ; Callus of foot L84 and Upper respiratory tract infection, unspecified type J06.9 [facility] [address] [place] [id number] [place] [address] 40552- 6308 March, [facility] [address] [place] [id number] [place] [address] 68821- 7639 Feb, [facility] [address] [place] [id number] [place] [address] 39305- 4017 Jan, Diabetes mellitus without mention of complication, type II or unspecified type, not stated as uncontrolled 250.00 [facility] [address] [place] [id number] [place] [address] 39174- 4026 Jan, [facility] [address] 81582- 6392 Jan, Diabetes E11.9 and Hypothyroidism E03.9 [facility] [address] [place] [id number] [place] [address] 43023- 6172 Dec, Diarrhea R19.7 [facility] [address] [place] [id number] [place] [address] 34788- 3955 Dec, [facility] [address] [place] [id number] [place] [address] 47784- 1478 Dec, Hypothyroidism, unspecified E03.9 [facility] [address] [place] [id number] [place] [address] 31162- 9639 Dec, [facility] [address] [place] [id number] [place] [address] 60174- 2748 Dec, Hypothyroidism, unspecified E03.9 [facility] [address] [place] [id number] [place] [address] 78023- 5139 04 Dec, 2015 Diarrhea R19.7 [facility] [address] [place] [id number] [place] [address] 95139- 2027 01 Dec, 2015 Diarrhea R19.7 [facility] [address] [place] [id number] [place] [address] 41110- 5996 Nov, [facility] [address] [place] [id number] [address]- 9694 Nov, [facility] [address] [place] [address] 95685- 2956 Oct, [facility] [address], [place] [address]- 0017 Sep, Postnasal drip R09.82 [facility] [address] [place] [id number] [place] [address] 45278- 7434 Sep, [facility] [address] [place] [id number] [place] [address] 38018- 9514 Sep, [facility] [address] [place] [id number] [place] [address] 87507- 5732 Aug, [facility] [id number] [place] [address] 594253- 3089 Aug, [facility] [address], [place] [address]- 2517 Jul, Hypothyroidism 244.9 [facility] [address] [place] [id number] [place] [address] 46135- 3026 Jul, Diabetes mellitus without mention of complication, type II or unspecified type, not stated as uncontrolled 250.00 [facility] [address] [address]- 4375 Jul, [facility] [address] [address]- 6418 Jul, [facility] [address], [place] [address]- 3569 Jun, [facility] [address] [place] [id number] [place] [address] 78277- 0527 May, Other chronic pain 338.29 [facility] [address] 8635 May, Other chronic pain 338.29 [facility] [address] [facility] [id number] [address]- 4519 May, [facility] [address] [place] [id number] [place] [address] 22316- 4267 May, [facility] [address], [place] [address]- 0014 Apr, Rash 782.1 ; Hypercholesterolemia 272.0 and Hypothyroidism 244.9 [facility] [address] [facility] [id number] [address]- 2669 Apr, [facility] [address] [place] [id number] [place] [address] 25272- 8602 Apr, [facility] [address] [place] [id number] [address]- 0440 March, [facility] [address] [place] [id number] [place] [address] 44212- 1416 Feb, [facility] [address], [place] [address]- 4483 Feb, [facility] [address], [place] [address]- 7538 Jan, [facility] [address], [place] [address]- 2359 Jan, [facility] [address], [place] [address]- 1160 Jan, [facility] [address], [place] [address]- 7932 Jan, [facility] [address] [place] [id number] [address]- 5923 Jan, [facility] [address], [place] [address]- 3675 Jan, [facility] [address] [place] [id number] [address]- 3668 Jan, [facility] [place] [facility] [address] [id number] [place] [address]- 8610 16 Dec, 2014 [facility] [place] [facility] [address] [id number] [place] [address]- 9716 Dec, [facility] [place] [facility] [address] [id number] [place] [address]- 4545 Nov, [facility] [place] [facility] [address] [id number] [place] [address]- 7811 Nov, [facility] [place] [facility] [address] [id number] [place] [address]- 4690 Nov, [facility] [place] [facility] [address] [id number] [place] [address]- 7322 Nov, [facility] [place] [facility] [address] [id number] [place] [address]- 1423 Nov, [facility] [place] [facility] [address] [id number] [place] [address]- 0115 Nov, [facility] [place] [facility] [address] [id number] [place] [address]- 6800 Oct, [facility] [place] [facility] [address] [id number] [place] [address]- 2797 Oct, [facility] [place] [facility] [address] [id number] [place] [address]- 7481 Sep, [facility] [place] [facility] [address] [id number] [place] [address]- 4307 Sep, [facility] [place] [facility] [address] [id number] [place] [address]- 0293 Sep, [facility] [place] [facility] [address] [id number] [place] [address]- 7726 Sep, [facility] [place] [facility] [address] [id number] [place] [address]- 0107 Aug, [facility] [place] [facility] [address] [id number] [place] [address]- 2526 Aug, [facility] [place] [facility] [address] [id number] [place] 6413 Jul, [facility] [place] [facility] [address] [id number] [place] [address]- 6713 Jul, [facility] [place] [facility] [address] [id number] [place] 1062 Jun, [facility] [place] [facility] [address] [id number] [place] [address]- 0635 Jun, [facility] [place] [facility] [address] [id number] [place] [address]- 5792 Jun, [facility] [place] [facility] [address] [id number] [place] [address]- 0589 Jun, [facility] [place] [facility] [address] [id number] [place] [address]- 4894 May, [facility] [place] [facility] [address] [id number] [place] [address]- 1115 May, [facility] [place] [facility] [address] [id number] [place] [address]- 5549 May, [facility] [place] [facility] [address] [id number] [place] [address]- 9475 May, [facility] [place] [facility] [address] [id number] [place] [address]- 0056 Apr, [facility] [place] [facility] [address] [id number] [place] [address]- 9275 Apr, [facility] [place] [facility] [address] [id number] [place] [address]- 4642 March, [facility] [place] [facility] [address] [id number] [place] [address]- 8934 March, [facility] [place] [facility] [address] [id number] [place] [address]- 8115 March, [facility] [place] [facility] [address] [id number] [place] [address]- 3370 March, [facility] [address] [id number] [place] [address]- 2924 March, [facility] [place] [facility] [address] [id number] [place] [address]- 6396 March, [facility] [address] [id number] [place] [address]- 6887 Feb, [facility] [place] [facility] [address] [id number] [place] [address]- 9042 Feb, [facility] [address] [id number] [place] [address]- 5434 Feb, [facility] [address] [id number] [place] [address]- 1632 Feb, [facility] [place] [facility] [address] [id number] [place] [address]- 2380 Feb, [facility] [address] [id number] [place] [address]- 9900 Feb, [facility] [place] [facility] [address] [id number] [place] [address]- 0496 Feb, [facility] [address] [id number] [place] [address]- 2201 Feb, [facility] [place] [facility] [address] [id number] [place] [address]- 8521 Jan, [facility] [place] [facility] [address] [id number] [place] [address]- 9767 Jan, [facility] [place] [facility] [address] [id number] [place] [address]- 7097 Jan, [facility] [place] [facility] [address] [id number] [place] [address]- 7372 Jan, [facility] [place] [facility] [address] [id number] [place] [address]- 5649 Jan, [facility] [place] [facility] [address] [id number] [place] [address]- 9969 13 Jan, 2014 [facility] [place] [facility] [address] [id number] [place] [address]- 5682 Jan, [facility] [place] [facility] [address] [id number] [place] [address]- 1360 Jan, [facility] [place] [facility] [address] [id number] [place] [address]- 7031 Jan, [facility] [place] [facility] [address] [id number] [place] [address]- 6979 Dec, [facility] [place] [facility] [address] [id number] [place] [address]- 4861 Dec, [facility] [place] [facility] [address] [id number] [place] [address] Nov, [facility] [place] [facility] [address] [id number] [place] [address] Nov, [facility] [place] [facility] [address] [id number] [place] [address] Nov, [facility] [place] [facility] [address] [id number] [place] [address] Nov, [facility] [place] [facility] [address] [id number] [place] [address] Nov, [facility] [place] [facility] [address] [id number] [place] [address] Nov, [facility] [place] [facility] [address] [id number] [place] [address] Oct, [facility] [place] [facility] [address] [id number] [place] [address] Oct, [facility] [place] [facility] [address] [id number] [place] [address] Sep, [facility] [place] [facility] [address] [id number] [place] [address] Sep, [facility] [place] [facility] [address] [id number] [place] [address] Sep, [facility] [place] [facility] [address] [id number] [place] [address] Sep, [facility] [place] [facility] [address] [id number] [place] [address] Sep, [facility] [place] [facility] [address] [id number] [place] [address] Sep, [facility] [place] [facility] [address] [id number] [place] [address] Sep, [facility] [place] [facility] [address] [id number] [place] [address] Sep, [facility] [place] [facility] [address] [id number] [place] [address]- [address] Aug, [facility] [place] [facility] [address] [id number] [place] [address] Aug, [facility] [place] [facility] [address] [id number] [place] [address] Aug, [facility] [place] [facility] [address] [id number] [place] [address] Jul, [facility] [place] [facility] [address] [id number] [place] [address]- [address] Jul, [facility] [place] [facility] [address] [id number], [place] [address] Jul, [facility] [place] [facility] [address] [id number] [place] [address] Jun, [facility] [place] [facility] [address] [id number] [place] [address] Jun, [facility] [place] [facility] [address] [id number], [place] [address] Jun, [facility] [place] [facility] [address] [id number] [place] [address] Jun, [facility] [place] [facility] [address] [id number] [place] [address] Jun, [facility] [place] [facility] [address] [id number] [place] [address]- [address] Jun, [facility] [place] [facility] [address] [id number] [place] [address] May, [facility] [place] [facility] [address] [id number] [place] [address] May, [facility] [place] [facility] [address] [id number] [place] [address] Apr, [facility] [place] [facility] [address] [id number] [place] [address] Apr, [facility] [place] [facility] [address] [id number] [place] [address] March, [facility] [address] [id number] [place] [address] Feb, [facility] [place] [facility] [address] [id number] [place] [address] Feb, [facility] [place] [facility] [address] [id number] [place] [address] Feb, [facility] [place] [facility] [address] [id number] [place] [address] Feb, [facility] [place] [facility] [address] [id number] [place] [address] Jan, [facility] [place] [facility] [address] [id number] [place] [address] Jan, [facility] [place] [facility] [address] [id number] [place] [address] Jan, [facility] [place] [facility] [address] [id number] [place] [address] Jan, [facility] [place] [facility] [address] [id number] [place] [address] Jan, [facility] [place] [facility] [address] [id number] [place] [address] Dec, [facility] [place] [facility] [address] [id number] [place] [address] Nov, [facility] [place] [facility] [address] [id number] [place] [address] Nov, [facility] [place] [facility] [address] [id number] [place] [address] Oct, [facility] [place] [facility] [address] [id number] [place] [address] Oct, [facility] [place] [facility] [address] [id number] [place] [address] 7917 Oct, [facility] [place] [facility] [address] [id number], [place] [address] Oct, [facility] [place] [facility] [address] [id number] [place] [address] Oct, [facility] [place] [facility] [address] [id number] [place] [address] 8860 Oct, [facility] [place] [facility] [address] [id number], [place] [address] Oct, [facility] [place] [facility] [address] [id number], [place] [address] Oct, [facility] [place] [facility] [address] [id number] [place] [address] Aug, [facility] [place] [facility] [address] [id number], [place] [address] Aug, [facility] [place] [facility] [address] [id number], [place] [address] Aug, [facility] [place] [facility] [address] [id number] [place] [address] 26 Aug, 2012 [facility] [address] [id number] [place] [address] 19 Aug, 2012 [facility] [place] [facility] [address] [id number] [place] [address]686 19 Aug, 2012 [facility] [address] [id number] [place] [address] 15 Aug, 2012 [facility] [place] [facility] [address] [id number] [place] [address] 27 Jul, 2012 [facility] [place] [facility] [address] [id number] [place] [address] 27 Jul, 2012 [facility] [place] [facility] [address] [id number] [place] [address] 27 Jul, 2012 [facility] [place] [facility] [address] [id number] [place] [address] 1434 27 Jul, 2012 [facility] [address] [id number] [place] [address]- [address] 03 Jul, 2012 [facility] [place] [facility] [address] [id number] [place] [address]- [address] 28 Jun, 2012 [facility] [place] [facility] [address] [id number] [place] [address] Jun, [facility] [place] [facility] [address] [id number] [place] [address] 25[address] Jun, [facility] [place] [facility] [address] [id number] [place] [address] 45[address] May, [facility] [place] [facility] [address] [id number] [place] [address]159 May, [facility] [place] [facility] [address] [id number] [place] [address] 4834 May, [facility] [place] [facility] [address] [id number] [place] [address]- 6279 May, [facility] [place] [facility] [address] [id number] [place] [address]- [address] 23 May, 2012 [facility] [place] [facility] [address] [id number] [place] [address] 4[address] May, [facility] [place] [facility] [address] [id number] [place] [address] 8866 May, [facility] [place] [facility] [address] [id number] [place] [address] 9218 Apr, [facility] [place] [facility] [address] [id number] [place] [address] Apr, [facility] [place] [facility] [address] [id number] [place] [address] March, [facility] [place] [facility] [address] [id number] [place] [address] Feb, [facility] [place] [facility] [address] [id number] [place] [address] 30 Jan, 2012 [facility] [place] [facility] [address] [id number] [place] [address]- [address]193 Jan, [facility] [place] [facility] [address] [id number] [place] [address] 268[address] Jan, [facility] [place] [facility] [address] [id number] [place] [address] Jan, [facility] [place] [facility] [address] [id number] [place] [address] 62[address] Jan, [facility] [place] [facility] [address] [id number] [place] [address] 6000 Jan, [facility] [place] [facility] [address] [id number] [place] [address]- 5846 Jan, [facility] [place] [facility] [address] [id number] [place] [address]- 7385 Jan, [facility] [place] [facility] [address] [id number] [place] [address]- [address]394 Jan, [facility] [address] [id number] [place] [address]- 117[address] Jan, [facility] [place] [facility] [address] [id number] [place] [address]- 4006 Dec, [facility] [place] [facility] [address] [id number] [place] [address]- 8476 Dec, [facility] [place] [facility] [address] [id number] [place] [address]- 8946 Dec, [facility] [place] [facility] [address] [id number] [place] [address]- 8922 Dec, [facility] [place] [facility] [address] [id number] [place] [address]- 4256 Dec, [facility] [address] [id number] [place] [address]- 8258 Dec, [facility] [address] [id number] [place] [address]- 6080 Dec, [facility] [address] [id number] [place] [address]- [address]365 Dec, [facility] [address] [id number] [place] [address]- 5775 Nov, [facility] [place] [facility] [address] [id number] [place] [address] 2546 Nov, [facility] [place] [facility] [address] [id number] [place] [address]- [address]124 Nov, [facility] [place] [facility] [address] [id number] [place] [address]- 7867 Oct, [facility] [place] [facility] [address] [id number] [place] [address]- 2766 Oct, [facility] [place] [facility] [address] [id number] [place] [address]- 8593 Oct, [facility] [address] [id number] [place] [address]- [address] Oct, [facility] [address] [id number] [place] [address]- [address] Sep, IMMUNIZATIONS No Known Immunizations SOCIAL [...]
--- OUTSIDE RECORDS SUMMARY | 2019-01-08 00:01 | XMS REPORT ---
Author Author NALINI GOMEZ Organization [facility] Address [address] [place] [address] Care Team Providers Care Bridge Toll Collector Name Role Phone NALINI GOMEZ Unavailable PROBLEMS Type Condition ICD9-CM Code [id number] Code Onset Dates Condition Status SNOMED Code Problem Hypercholesterolemia 272.0 Active 31147818 Problem Panlobular emphysema J43.1 Active 0179172 Problem Hypothyroidism (acquired) E03.9 Active 26494231 Problem Acquired hypothyroidism E03.9 Active 343896321 Problem Controlled type 2 diabetes mellitus without complication, without long -term current use of insulin E11.9 Active 932586362 Problem Type 2 diabetes mellitus without complications E11.9 Active 611840800 Problem Hypothyroidism, unspecified E03.9 Active 40332113 Problem Other chronic pain G89.29 Active 82614552 ALLERGIES No Information ENCOUNTERS Encounter Location Date Diagnosis [place] [address] 58156- 4155 May, [place] [address] 42189- 7196 May, [place] [address] 59588- 2507 May, Viral gastroenteritis A08.4 [place] [address] 02680- 6915 Apr, Acute diffuse otitis externa of left ear H60.312 and Hypothyroidism (acquired) E03.9 [place] [address] 03238- 3351 Apr, Viral gastroenteritis A08.4 and Acquired hypothyroidism E03.9 [place] [address] 16026- 9674 Apr, Type 2 diabetes mellitus without complications E11.9 and Panlobular emphysema J43.1 [facility] [address] [place] [id number] [place] [address] 51189- 8081 Apr, Viral gastroenteritis A08.4 [facility] [address] [place] [id number] [place] [address] 95264- 8115 March, [facility] [address] [place] [id number] [place] [address] 93708- 2575 March, Viral gastroenteritis A08.4 [facility] [address] [place] [id number] [place] [address] 34423- 8425 Feb, Panlobular emphysema J43.1 [place] [address] [place] [id number] [place] [address] 33269- 7284 Feb, Panlobular emphysema J43.1 [place] [address] [place] [id number] [place] [address] 87598- 1780 Feb, [facility] [address] [place] [id number] [place] [address] 28337- 9708 Feb, [place] [address] [place] [id number] [place] [address] 59586- 4311 Feb, Viral gastroenteritis A08.4 [place] [address] [place] [id number] [place] [address] 84687- 0457 Feb, Head lice B85.0 [place] [address] [place] [id number] [place] [address] 58933- 0097 Feb, Medicare annual wellness visit, initial Z00.00 ; Head lice B85.0 ; Tinea corporis B35.4 and Enlarged lymph node R59.9 [place] [address] [place] [id number] [place] [address] 27982- 4618 Jan, Viral gastroenteritis A08.4 [place] [address] [place] [id number] [place] [address] 23561- 9802 Jan, [facility] [address] [place] [id number] [place] [address] 58377- 2898 Dec, Controlled type 2 diabetes mellitus without complication, without long-term current use of insulin E11.9 [place] [address] [place] [id number] [place] [address] 68642- 6499 Dec, [place] [address] [place] [id number] [place] [address] 18298- 4076 Dec, Viral gastroenteritis A08.4 [place] [address] [place] [id number] [place] [address] 01830- 8691 Nov, Viral gastroenteritis A08.4 [place] [address] [place] [id number] [place] [address] 65897- 8986 Oct, Acute upper respiratory infection, unspecified J06.9 and Other viral agents as the cause of diseases classified elsewhere B97.89 [place] [address] [place] [id number] [place] [address] 45027- 6489 Oct, Viral gastroenteritis A08.4 [place] [address] [place] [id number] [place] [address] 80970- 2193 Oct, Controlled type 2 diabetes mellitus without complication, without long-term current use of insulin E11.9 ; Encounter for immunization Z23 and Acute pain of left foot M79.672 [place] [address] [place] [id number] [place] [address] 10557- 0394 Sep, Viral gastroenteritis A08.4 [place] [address] [place] [id number] [place] [address] 69287- 4221 Aug, Viral gastroenteritis A08.4 [place] [address] [place] [id number] [place] [address] 07830- 9948 Jul, Viral gastroenteritis A08.4 [facility] [address] [place] [id number] [place] [address] 89867 -7912 Jul, Acute nasopharyngitis (common cold) J00 [place] [address] [place] [id number] [place] [address] 54887- 9627 Jun, Viral gastroenteritis A08.4 [place] [address] [address]- 2513 Jun, [place] [address] [place] [id number] [place] [address] 98916- 9874 Jun, Viral gastroenteritis A08.4 [place] [address] [place] [id number] [place] [address] 94844- 0926 May, Patellar tendinitis, left knee M76.52 [place] [address] [place] [id number] [place] [address] 92756- 3656 May, Viral gastroenteritis A08.4 [place] [address] [place] [id number] [place] [address] 15591- 4811 Apr, Viral gastroenteritis A08.4 and Hypothyroidism, unspecified E03.9 [place] [address] [place] [address] [place] [address] 96860- 4602 Apr, Pain in left knee M25.562 ; Acute left-sided low back pain without sciatica M54.5 and Type 2 diabetes mellitus without complications E11.9 [place] [address] [place] [id number] [place] [address] 68624- 9418 Apr, Viral gastroenteritis A08.4 [place] [address] [place] [id number] [place] [address] 30544- 5408 March, Viral gastroenteritis A08.4 [facility]ALK IN [facility] [address] [place] [address] 31638 -7918 Feb, Acute pain of left knee M25.562 [place] [address] [place] [address] 11063- 3261 Feb, Viral gastroenteritis A08.4 [place] [address] [place] [id number] [place] [address] 55774- 7199 Jan, Viral gastroenteritis A08.4 and Controlled type 2 diabetes mellitus without complication, without long-term current use of insulin E11.9 [place] [address] [place] [id number] [place] [address] 18357- 5001 14 Jan, 2017 [place] [address] [place] [address] 82017- 3823 16 Dec, 2016 Other chronic pain G89.29 ; Pain in left knee M25.562 ; Controlled type 2 diabetes mellitus without complication, without long-term current use of insulin E11.9 and Acute cystitis with hematuria N30.01 [place] [address] [place] [id number] [place] [address] 21299- 7443 Dec, [place] [address] [place] [id number] [place] [address] 88075- 6842 Nov, Type 2 diabetes mellitus without complications E11.9 [place] [address] [place] [id number] [place] [address] 76861- 2194 Nov, [place] [address] [place] [id number] [place] [address] 06328- 0096 Oct, [place] [address] [place] [id number] [place] [address] 15600- 6388 Sep, [place] [address] [place] [id number] [place] [address] 58036- 5191 Aug, [place] [address] [place] [id number] [place] [address] 49629- 5240 Aug, [place] [address] [place] [address] [place] [address] 07542- 3505 Jul, Controlled type 2 diabetes mellitus without complication, without long-term current use of insulin E11.9 ; Callus of foot L84 and URI, acute J06.9 [place] [address] [place] [address] 98321- 9460 13 Jul, 2016 [place] [address] [place] [id number] [place] [address] 96227- 8823 Jun, Onychomycosis B35.1 and Nail ingrowing L60.0 [place] [address] [place] [id number] [place] [address] 63623- 5064 Jun, [facility] [address] [place] [address] 23784- 0339 Jun, Lumbar back pain with radiculopathy affecting left lower extremity M54.17 [facility] [address] [place] [id number] [place] [address] 59259- 5800 Jun, [facility] [address] [place] [id number] [place] [address] 59516- 5412 Jun, Other chronic pain G89.29 [facility] [address] [place] [id number] [place] [address] 41982- 3361 Jun, Other chronic pain G89.29 [facility] [address] [place] [id number] [place] [address] 66073- 7225 Jun, Type 2 diabetes mellitus without complications E11.9 [facility] [address] [place] [id number] [place] [address] 60996- 8801 Jun, [facility] [address] [place] [id number] [place] [address] 02928- 2352 Jun, Onychomycosis B35.1 ; Callus L84 and Rash R21 [facility] [address] [place] [id number] [place] [address] 57175- 7620 May, [facility] [address] [place] [id number] [place] [address] 64051- 4039 May, [facility] [address] [place] [id number] [place] [address] 09756- 9276 May, Type 2 diabetes mellitus without complications E11.9 [facility] [address] [place] [id number] [place] [address] 62684- 4989 May, [facility] [address] [place] [id number] [place] [address] 74544- 5037 Apr, [facility] [address] [place] [id number] [place] [address] 45418- 7566 Apr, Type 2 diabetes mellitus without complications E11.9 ; Acquired hypothyroidism E03.9 ; Callus of foot L84 and Upper respiratory tract infection, unspecified type J06.9 [facility] [address] [place] [id number] [place] [address] 30173- 4172 March, [facility] [address] [place] [id number] [place] [address] 44230- 2101 Feb, [facility] [address] [place] [id number] [place] [address] 88736- 2037 Jan, Diabetes mellitus without mention of complication, type II or unspecified type, not stated as uncontrolled 250.00 [facility] [address] [place] [id number] [place] [address] 58367- 9577 Jan, [facility] [address] 30855- 6565 Jan, Diabetes E11.9 and Hypothyroidism E03.9 [facility] [address] [place] [id number] [place] [address] 06666- 9022 Dec, Diarrhea R19.7 [facility] [address] [place] [id number] [place] [address] 73736- 3823 Dec, [facility] [address] [place] [id number] [place] [address] 02082- 3851 Dec, Hypothyroidism, unspecified E03.9 [facility] [address] [place] [id number] [place] [address] 85831- 0232 Dec, [facility] [address] [place] [id number] [place] [address] 15315- 1485 Dec, Hypothyroidism, unspecified E03.9 [facility] [address] [place] [id number] [place] [address] 41113- 3966 04 Dec, 2015 Diarrhea R19.7 [facility] [address] [place] [id number] [place] [address] 92791- 4403 01 Dec, 2015 Diarrhea R19.7 [facility] [address] [place] [id number] [place] [address] 49275- 6956 Nov, [facility] [address] [place] [id number] [address]- 4351 Nov, [facility] [address] [place] [address] 11286- 0916 Oct, [facility] [address] [address]- 0272 Sep, Postnasal drip R09.82 [facility] [address] [place] [id number] [place] [address] 78688- 7998 Sep, [facility] [address] [place] [id number] [place] [address] 01166- 3792 Sep, [facility] [address] [place] [id number] [place] [address] 13138- 6624 Aug, [facility] [address] [place] [address] 490179- 5261 Aug, [facility] [address], [place] [address]- 6978 Jul, Hypothyroidism 244.9 [facility] [address] [place] [id number] [place] [address] 73688- 7130 Jul, Diabetes mellitus without mention of complication, type II or unspecified type, not stated as uncontrolled 250.00 [facility] [address] [address]- 0395 Jul, [facility] [address] [address]- 1214 Jul, [facility] [address], [place] [address]- 1128 Jun, [facility] [address] [place] [id number] [place] [address] 52397- 9325 May, Other chronic pain 338.29 [facility] [address] 3948 May, Other chronic pain 338.29 [facility] [address] [facility] [id number] [address]- 8033 May, [facility] [address] [place] [id number] [place] [address] 04590- 3687 May, [facility] [address], [place] [address]- 0493 Apr, Rash 782.1 ; Hypercholesterolemia 272.0 and Hypothyroidism 244.9 [facility] [address] [facility] [id number] [address]- 7534 Apr, [facility] [address] [place] [id number] [place] [address] 62357- 7167 Apr, [facility] [address] [place] [id number] [address]- 3235 March, [facility] [address] [place] [id number] [place] [address] 95773- 5114 Feb, [facility] [address], [place] [address]- 6196 Feb, [facility] [address], [place] [address]- 8551 Jan, [facility] [address], [place] [address]- 9470 Jan, [facility] [address], [place] [address]- 0487 Jan, [facility] [address], [place] [address]- 6804 Jan, [facility] [address] [place] [id number] [address]- 4889 Jan, [facility] [address], [place] [address]- 5058 Jan, [facility] [address] [place] [id number] [address]- 6323 Jan, [facility] [place] [facility] [address] [id number] [place] [address]- 0089 16 Dec, 2014 [facility] [place] [facility] [address] [id number] [place] [address]- 8649 Dec, [facility] [place] [facility] [address] [id number] [place] [address]- 3733 Nov, [facility] [place] [facility] [address] [id number] [place] [address]- 1010 Nov, [facility] [place] [facility] [address] [id number] [place] [address]- 8231 Nov, [facility] [place] [facility] [address] [id number] [place] [address]- 5864 Nov, [facility] [place] [facility] [address] [id number] [place] [address]- 7010 Nov, [facility] [place] [facility] [address] [id number] [place] [address]- 4483 Nov, [facility] [place] [facility] [address] [id number] [place] [address]- 9030 Oct, [facility] [place] [facility] [address] [id number] [place] [address]- 9071 Oct, [facility] [place] [facility] [address] [id number] [place] [address]- 6642 Sep, [facility] [place] [facility] [address] [id number] [place] [address]- 0131 Sep, [facility] [place] [facility] [address] [id number] [place] [address]- 7346 Sep, [facility] [place] [facility] [address] [id number] [place] [address]- 6836 Sep, [facility] [place] [facility] [address] [id number] [place] [address]- 1274 Aug, [facility] [place] [facility] [address] [id number] [place] [address]- 6956 Aug, [facility] [place] [facility] [address] [id number] [place] 4844 Jul, [facility] [place] [facility] [address] [id number] [place] [address]- 8343 Jul, [facility] [place] [facility] [address] [id number] [place] 5801 Jun, [facility] [place] [facility] [address] [id number] [place] [address]- 2158 Jun, [facility] [place] [facility] [address] [id number] [place] [address]- 7121 Jun, [facility] [place] [facility] [address] [id number] [place] [address]- 9892 Jun, [facility] [place] [facility] [address] [id number] [place] [address]- 7560 May, [facility] [place] [facility] [address] [id number] [place] [address]- 7331 May, [facility] [place] [facility] [address] [id number] [place] [address]- 5436 May, [facility] [place] [facility] [address] [id number] [place] [address]- 6789 May, [facility] [place] [facility] [address] [id number] [place] [address]- 5814 Apr, [facility] [place] [facility] [address] [id number] [place] [address]- 0349 Apr, [facility] [place] [facility] [address] [id number] [place] [address]- 7170 March, [facility] [place] [facility] [address] [id number] [place] [address]- 4148 March, [facility] [place] [facility] [address] [id number] [place] [address]- 3060 March, [facility] [place] [facility] [address] [id number] [place] [address]- 6647 March, [facility] [address] [id number] [place] [address]- 3609 March, [facility] [place] [facility] [address] [id number] [place] [address]- 7126 March, [facility] [address] [id number] [place] [address]- 2651 Feb, [facility] [place] [facility] [address] [id number] [place] [address]- 6591 Feb, [facility] [address] [id number] [place] [address]- 3486 Feb, [facility] [address] [id number] [place] [address]- 5169 Feb, [facility] [place] [facility] [address] [id number] [place] [address]- 4392 Feb, [facility] [address] [id number] [place] [address]- 6733 Feb, [facility] [place] [facility] [address] [id number] [place] [address]- 2487 Feb, [facility] [address] [id number] [place] [address]- 9850 Feb, [facility] [place] [facility] [address] [id number] [place] [address]- 1944 Jan, [facility] [place] [facility] [address] [id number] [place] [address]- 6670 Jan, [facility] [place] [facility] [address] [id number] [place] [address]- 8576 Jan, [facility] [place] [facility] [address] [id number] [place] [address]- 8760 Jan, [facility] [place] [facility] [address] [id number] [place] [address]- 4542 Jan, [facility] [place] [facility] [address] [id number] [place] [address]- 2860 13 Jan, 2014 [facility] [place] [facility] [address] [id number] [place] [address]- 4192 Jan, [facility] [place] [facility] [address] [id number] [place] [address]- 9276 Jan, [facility] [place] [facility] [address] [id number] [place] [address]- 8817 Jan, [facility] [place] [facility] [address] [id number] [place] [address]- 1140 Dec, [facility] [place] [facility] [address] [id number] [place] [address]- 8940 Dec, [facility] [place] [facility] [address] [id number] [place] [address]- 3956 Nov, [facility] [place] [facility] [address] [id number] [place] [address]- 0245 Nov, [facility] [place] [facility] [address] [id number] [place] [address] Nov, [facility] [place] [facility] [address] [id number] [place] [address] Nov, [facility] [place] [facility] [address] [id number] [place] [address] Nov, [facility] [place] [facility] [address] [id number] [place] [address] Nov, [facility] [place] [facility] [address] [id number] [place] [address] Oct, [facility] [place] [facility] [address] [id number] [place] [address] Oct, [facility] [place] [facility] [address] [id number] [place] [address] Sep, [facility] [place] [facility] [address] [id number] [place] [address] Sep, [facility] [place] [facility] [address] [id number] [place] [address] Sep, [facility] [place] [facility] [address] [id number] [place] [address] Sep, [facility] [place] [facility] [address] [id number] [place] [address] Sep, [facility] [place] [facility] [address] [id number] [place] [address] Sep, [facility] [place] [facility] [address] [id number] [place] [address] Sep, [facility] [place] [facility] [address] [id number] [place] [address] Sep, [facility] [place] [facility] [address] [id number] [place] [address] Aug, [facility] [place] [facility] [address] [id number] [place] [address] Aug, [facility] [place] [facility] [address] [id number] [place] [address] Aug, [facility] [place] [facility] [address] [id number] [place] [address] Jul, [facility] [place] [facility] [address] [id number] [place] [address] Jul, [facility] [place] [facility] [address] [id number], [place] [address] Jul, [facility] [place] [facility] [address] [id number] [place] [address] Jun, [facility] [place] [facility] [address] [id number] [place] [address] Jun, [facility] [place] [facility] [address] [id number], [place] [address] Jun, [facility] [place] [facility] [address] [id number] [place] [address] Jun, [facility] [place] [facility] [address] [id number] [place] [address] Jun, [facility] [place] [facility] [address] [id number] [place] [address] Jun, [facility] [place] [facility] [address] [id number] [place] [address] May, [facility] [place] [facility] [address] [id number] [place] [address] May, [facility] [place] [facility] [address] [id number] [place] [address] Apr, [facility] [place] [facility] [address] [id number] [place] [address] Apr, [facility] [place] [facility] [address] [id number] [place] [address] March, [facility] [address] [id number] [place] [address] Feb, [facility] [place] [facility] [address] [id number] [place] [address] Feb, [facility] [place] [facility] [address] [id number] [place] [address] Feb, [facility] [place] [facility] [address] [id number] [place] [address] Feb, [facility] [place] [facility] [address] [id number] [place] [address] Jan, [facility] [place] [facility] [address] [id number] [place] [address] Jan, [facility] [place] [facility] [address] [id number] [place] [address] Jan, [facility] [place] [facility] [address] [id number] [place] [address] Jan, [facility] [place] [facility] [address] [address] [id number] [place] [address] Jan, [facility] [place] [facility] [address] [id number] [place] [address] Dec, [facility] [place] [facility] [address] [facility] [id number] [place] [address] Nov, [facility] [place] [facility] [address] [id number] [place] [address] Nov, [facility] [place] [facility] [address] [id number] [place] [address] Oct, [facility] [place] [facility] [address] [id number] [place] [address] Oct, [facility] [place] [facility] [address] [facility] [id number] [place] [address] Oct, [facility] [place] [facility] [address] [id number], [place] [address] Oct, [facility] [place] [facility] [address] [id number] [place] [address] Oct, [facility] [place] [facility] [address] [facility] [id number] [place] [address] Oct, [facility] [place] [facility] [address] [id number], [place] [address] Oct, [facility] [place] [facility] [address] [id number], [place] [address] Oct, [facility] [place] [facility] [address] [id number] [place] [address] Aug, [facility] [place] [facility] [address] [facility] [id number], [place] [address] Aug, [facility] [place] [facility] [address] [facility] [id number], [place] [address] Aug, [facility] [place] [facility] [address] [id number] [place] [address] 26 Aug, 2012 [facility] [address] [id number] [place] [address] 19 Aug, 2012 [facility] [place] [facility] [address] [id number] [place] [address] 19 Aug, 2012 [facility] [address] [id number] [place] [address] 15 Aug, 2012 [facility] [place] [facility] [address] [id number] [place] [address] 27 Jul, 2012 [facility] [place] [facility] [address] [id number] [place] [address] 27 Jul, 2012 [facility] [place] [facility] [address] [id number] [place] [address] 27 Jul, 2012 [facility] [place] [facility] [address] [id number] [place] [address] 27 Jul, 2012 [facility] [address] [id number] [place] [address] 03 Jul, 2012 [facility] [place] [facility] [address] [id number] [place] [address] 28 Jun, 2012 [facility] [place] [facility] [address] [id number] [place] [address] Jun, [facility] [place] [facility] [address] [id number] [place] [address] Jun, [facility] [place] [facility] [address] [id number] [place] [address] May, [facility] [place] [facility] [address] [id number] [place] [address] May, [facility] [place] [facility] [address] [id number] [place] [address] May, [facility] [place] [facility] [address] [id number] [place] [address] May, [facility] [place] [facility] [address] [id number] [place] [address] 23 May, 2012 [facility] [place] [facility] [address] [id number] [place] [address] May, [facility] [place] [facility] [address] [id number] [place] [address] May, [facility] [place] [facility] [address] [id number] [place] [address] Apr, [facility] [place] [facility] [address] [id number] [place] [address] Apr, [facility] [place] [facility] [address] [id number] [place] [address] March, [facility] [place] [facility] [address] [id number] [place] [address] Feb, [facility] [place] [facility] [address] [id number] [place] [address] 30 Jan, 2012 [facility] [place] [facility] [address] [id number] [place] [address] Jan, [facility] [place] [facility] [address] [id number] [place] [address] Jan, [facility] [place] [facility] [address] [id number] [place] [address] Jan, [facility] [place] [facility] [address] [id number] [place] [address] Jan, [facility] [place] [facility] [address] [id number] [place] [address] Jan, [facility] [place] [facility] [address] [id number] [place] [address]- [address] Jan, [facility] [place] [facility] [address] [id number] [place] [address] Jan, [facility] [place] [facility] [address] [id number] [place] [address]- [address] Jan, [facility] [address] [id number] [place] [address] Jan, [facility] [place] [facility] [address] [id number] [place] [address] Dec, [facility] [place] [facility] [address] [id number] [place] [address]- [address] Dec, [facility] [place] [facility] [address] [id number] [place] [address] Dec, [facility] [place] [facility] [address] [id number] [place] [address] Dec, [facility] [place] [facility] [address] [id number] [place] [address]- [address] Dec, [facility] [address] [id number] [place] [address] Dec, [facility] [address] [id number] [place] [address]- [address] Dec, [facility] [address] [id number] [place] [address]- [address] Dec, [facility] [address] [id number] [place] [address] Nov, [facility] [place] [facility] [address] [id number] [place] [address] Nov, [facility] [place] [facility] [address] [id number] [place] [address] Nov, [facility] [place] [facility] [address] [id number] [place] [address] Oct, [facility] [place] [facility] [address] [id number] [place] [address]446 Oct, [facility] [place] [facility] [address] [id number] [place] [address]- [address] Oct, [facility] [address] [facility] [id number] [place] [address] Oct, [facility] [address] [facility] [id number] [place] [address] Sep, IMMUNIZATIONS No Known Immunizations SOCIAL HISTORY Never Assessed REASON FOR VISIT Controlled Med Refill 02/01 PLAN OF CARE VITAL SIGNS MEDICATIONS Medication Instructions Dosage Frequency Start Date End Date Duration Status Lapine 10-325 MG Orally every 6 hrs 1 [...] intraocular lens prosthesis Hospitalization History admitted to [facility] for bronchitis then went into cardiac arrest and was resuscitated. She was in the hospital for 7 days. 2012 Hospitalization History surgeries
[2019-01-08] MEDS ORDERED: RT-ALBUTEROL/IPRATROPIUM 3 ML (DUONEB) VIAL ONE (00:02)
--- OUTSIDE RECORDS SUMMARY | 2019-01-08 00:02 | XMS REPORT ---
Author Author NALINI GOMEZ Organization [facility] Address [address] [place] [address] Care Team Providers Care Automatic Typewriter Inspector Name Role Phone NALINI GOMEZ Unavailable PROBLEMS Type Condition ICD9-CM Code BHT87-JS Code Onset Dates Condition Status SNOMED Code Problem Hypercholesterolemia 272.0 Active 45094338 Problem Panlobular emphysema J43.1 Active 0304017 Problem Hypothyroidism (acquired) E03.9 Active 83225353 Problem Acquired hypothyroidism E03.9 Active 049817432 Problem Controlled type 2 diabetes mellitus without complication, without long -term current use of insulin E11.9 Active 676013233 Problem Type 2 diabetes mellitus without complications E11.9 Active 852097867 Problem Hypothyroidism, unspecified E03.9 Active 90273062 Problem Other chronic pain G89.29 Active 30622943 ALLERGIES No Information ENCOUNTERS Encounter Location Date Diagnosis [place] [address] [address]- [address] May, [place] [address] 33180- 4716 May, [place] [address] 59506- 9837 May, Viral gastroenteritis A08.4 [place] [address] 06397- 9124 Apr, Acute diffuse otitis externa of left ear H60.312 and Hypothyroidism (acquired) E03.9 [place] [address] 30390- 9786 Apr, Viral gastroenteritis A08.4 and Acquired hypothyroidism E03.9 [place] [address] 65847- 8097 Apr, Type 2 diabetes mellitus without complications E11.9 and Panlobular emphysema J43.1 [facility] [address] [place] [id number] [place] [address] 43469- 5532 Apr, Viral gastroenteritis A08.4 [facility] [address] [place] [id number] [place] [address] 63164- 0550 March, [facility] [address] [place] [id number] [place] [address] 48250- 7803 March, Viral gastroenteritis A08.4 [facility] [address] [place] [id number] [place] [address] 74255- 2116 Feb, Panlobular emphysema J43.1 [place] [address] [place] [id number] [place] [address] 15138- 4553 Feb, Panlobular emphysema J43.1 [place] [address] [place] [id number] [place] [address] 01264- 6627 Feb, [facility] [address] [place] [id number] [place] [address] 30500- 5591 Feb, [place] [address] [place] [id number] [place] [address] 92649- 8670 Feb, Viral gastroenteritis A08.4 [place] [address] [place] [id number] [place] [address] 85893- 7422 Feb, Head lice B85.0 [place] [address] [place] [id number] [place] [address] 97541- 0122 Feb, Medicare annual wellness visit, initial Z00.00 ; Head lice B85.0 ; Tinea corporis B35.4 and Enlarged lymph node R59.9 [place] [address] [place] [id number] [place] [address] 22922- 1625 Jan, Viral gastroenteritis A08.4 [place] [address] [place] [id number] [place] [address] 32088- 3979 Jan, [facility] [address] [place] [id number] [place] [address] 21242- 1001 Dec, Controlled type 2 diabetes mellitus without complication, without long-term current use of insulin E11.9 [place] [address] [place] [id number] [place] [address] 44970- 3226 Dec, [place] [address] [place] [id number] [place] [address] 33209- 1790 Dec, Viral gastroenteritis A08.4 [place] [address] [place] [id number] [place] [address] 73398- 0062 Nov, Viral gastroenteritis A08.4 [place] [address] [place] [id number] [place] [address] 68038- 2947 Oct, Acute upper respiratory infection, unspecified J06.9 and Other viral agents as the cause of diseases classified elsewhere B97.89 [place] [address] [place] [id number] [place] [address] 48183- 5784 Oct, Viral gastroenteritis A08.4 [place] [address] [place] [id number] [place] [address] 12924- 0377 Oct, Controlled type 2 diabetes mellitus without complication, without long-term current use of insulin E11.9 ; Encounter for immunization Z23 and Acute pain of left foot M79.672 [place] [address] [place] [id number] [place] [address] 97823- 5191 Sep, Viral gastroenteritis A08.4 [place] [address] [place] [id number] [place] [address] 28342- 6744 Aug, Viral gastroenteritis A08.4 [place] [address] [place] [id number] [place] [address] 05109- 2456 Jul, Viral gastroenteritis A08.4 [facility] [address] [place] [id number] [place] [address] 46674 -5673 Jul, Acute nasopharyngitis (common cold) J00 [place] [address] [place] [id number] [place] [address] 50522- 7483 Jun, Viral gastroenteritis A08.4 [place] [address], [place] [address]- 7233 Jun, [place] [address] [place] [id number] [place] [address] 12157- 7422 Jun, Viral gastroenteritis A08.4 [place] [address] [place] [id number] [place] [address] 47030- 3125 May, Patellar tendinitis, left knee M76.52 [place] [address] [place] [id number] [place] [address] 42669- 8213 May, Viral gastroenteritis A08.4 [place] [address] [place] [id number] [place] [address] 39238- 8113 Apr, Viral gastroenteritis A08.4 and Hypothyroidism, unspecified E03.9 [place] [address] [place] [id number] [place] [address] 17875- 3277 Apr, Pain in left knee M25.562 ; Acute left-sided low back pain without sciatica M54.5 and Type 2 diabetes mellitus without complications E11.9 [place] [address] [place] [id number] [place] [address] 91391- 6274 Apr, Viral gastroenteritis A08.4 [place] [address] [place] [id number] [place] [address] 34352- 0952 March, Viral gastroenteritis A08.4 [facility] [address] [place] [address] 02117 -0535 Feb, Acute pain of left knee M25.562 [place] [address] [place] [address] 40412- 2340 Feb, Viral gastroenteritis A08.4 [place] [address] [place] [id number] [place] [address] 60461- 5653 Jan, Viral gastroenteritis A08.4 and Controlled type 2 diabetes mellitus without complication, without long-term current use of insulin E11.9 [place] [address] [place] [id number] [place] [address] 35784- 5797 14 Jan, 2017 [place] [address] [place] [address] 63858- 6952 16 Dec, 2016 Other chronic pain G89.29 ; Pain in left knee M25.562 ; Controlled type 2 diabetes mellitus without complication, without long-term current use of insulin E11.9 and Acute cystitis with hematuria N30.01 [place] [address] [place] [id number] [place] [address] 52844- 4182 Dec, [place] [address] [place] [id number] [place] [address] 22579- 9455 Nov, Type 2 diabetes mellitus without complications E11.9 [place] [address] [place] [id number] [place] [address] 12385- 8344 Nov, [place] [address] [place] [id number] [place] [address] 51712- 6424 Oct, [place] [address] [place] [id number] [place] [address] 15111- 7193 Sep, [place] [address] [place] [id number] [place] [address] 73327- 4393 Aug, [place] [address] [place] [id number] [place] [address] 61603- 7208 Aug, [place] [address] [place] [id number] [place] [address] 38648- 2581 Jul, Controlled type 2 diabetes mellitus without complication, without long-term current use of insulin E11.9 ; Callus of foot L84 and URI, acute J06.9 [place] [address] [place] [address] 19908- 9173 13 Jul, 2016 [place] [address] [place] [id number] [place] [address] 24838- 3064 Jun, Onychomycosis B35.1 and Nail ingrowing L60.0 [place] [address] [place] [id number] [place] [address] 50941- 3455 Jun, [facility] [address] [place] [address] 11545- 6206 Jun, Lumbar back pain with radiculopathy affecting left lower extremity M54.17 [facility] [address] [place] [id number] [place] [address] 52909- 3757 Jun, [facility] [address] [place] [id number] [place] [address] 62451- 3763 Jun, Other chronic pain G89.29 [facility] [address] [place] [id number] [place] [address] 24292- 0083 Jun, Other chronic pain G89.29 [facility] [address] [place] [id number] [place] [address] 27946- 2135 Jun, Type 2 diabetes mellitus without complications E11.9 [facility] [address] [place] [id number] [place] [address] 39231- 6735 Jun, [facility] [address] [place] [id number] [place] [address] 41512- 5930 Jun, Onychomycosis B35.1 ; Callus L84 and Rash R21 [facility] [address] [place] [id number] [place] [address] 97405- 9220 May, [facility] [address] [place] [id number] [place] [address] 21233- 4139 May, [facility] [address] [place] [id number] [place] [address] 17231- 9142 May, Type 2 diabetes mellitus without complications E11.9 [facility] [address] [place] [id number] [place] [address] 05619- 1306 May, [facility] [address] [place] [id number] [place] [address] 47811- 6853 Apr, [facility] [address] [place] [id number] [place] [address] 82996- 8566 Apr, Type 2 diabetes mellitus without complications E11.9 ; Acquired hypothyroidism E03.9 ; Callus of foot L84 and Upper respiratory tract infection, unspecified type J06.9 [facility] [address] [place] [id number] [place] [address] 72977- 0471 March, [facility] [address] [place] [id number] [place] [address] 57380- 6808 Feb, [facility] [address] [place] [id number] [place] [address] 98283- 0874 Jan, Diabetes mellitus without mention of complication, type II or unspecified type, not stated as uncontrolled 250.00 [facility] [address] [place] [id number] [place] [address] 46149- 3043 Jan, [facility] [address] 91605- 6475 Jan, Diabetes E11.9 and Hypothyroidism E03.9 [facility] [address] [place] [id number] [place] [address] 39153- 5579 Dec, Diarrhea R19.7 [facility] [address] [place] [id number] [place] [address] 25618- 2506 Dec, [facility] [address] [place] [id number] [place] [address] 56036- 2719 Dec, Hypothyroidism, unspecified E03.9 [facility] [address] [place] [id number] [place] [address] 24486- 5807 Dec, [facility] [address] [place] [id number] [place] [address] 57081- 3112 Dec, Hypothyroidism, unspecified E03.9 [facility] [address] [place] [id number] [place] [address] 16531- 9348 04 Dec, 2015 Diarrhea R19.7 [facility] [address] [place] [id number] [place] [address] 11614- 3441 01 Dec, 2015 Diarrhea R19.7 [facility] [address] [place] [id number] [place] [address] 70047- 5442 Nov, [facility] [address] [place] [id number] [address]- 5607 Nov, [facility] [address] [place] [address] 06033- 8626 Oct, [facility] [address] [address]- 3963 Sep, Postnasal drip R09.82 [facility] [address] [place] [id number] [place] [address] 58726- 0729 Sep, [facility] [address] [place] [id number] [place] [address] 55000- 2471 Sep, [facility] [address] [place] [id number] [place] [address] 48486- 0893 Aug, [facility] [address] [place] [address] 991019- 8561 Aug, [facility] [address], [place] [address]- 6431 Jul, Hypothyroidism 244.9 [facility] [address] [place] [id number] [place] [address] 45701- 5859 Jul, Diabetes mellitus without mention of complication, type II or unspecified type, not stated as uncontrolled 250.00 [facility] [address], [place] [address]- 4629 Jul, [facility] [address], [place] [address]- 4263 Jul, [facility] [address] [place] [address]- 1059 Jun, [facility] [address] [place] [id number] [place] [address] 85773- 0588 May, Other chronic pain 338.29 [facility] [address] 8714 May, Other chronic pain 338.29 [facility] [address] [facility] [id number] [address]- 5107 May, [facility] [address] [place] [id number] [place] [address] 90668- 8271 May, [facility] [address], [place] [address]- 7319 Apr, Rash 782.1 ; Hypercholesterolemia 272.0 and Hypothyroidism 244.9 [facility] [address] [facility] [id number] [address]- 3437 Apr, [facility] [address] [place] [id number] [place] [address] 80064- 9136 Apr, [facility] [address] [place] [id number] [address]- 8151 March, [facility] [address] [place] [id number] [place] [address] 63605- 0857 Feb, [facility] [address], [place] [address]- 9724 Feb, [facility] [address], [place] [address]- 6012 Jan, [facility] [address], [place] [address]- 3913 Jan, [facility] [address], [place] [address]- 4832 Jan, [facility] [address], [place] [address]- 3334 Jan, [facility] [address] [place] [id number] [address]- 1673 Jan, [facility] [address], [place] [address]- 9669 Jan, [facility] [address] [place] [id number] [address]- 0918 Jan, [facility] [place] [facility] [address] [id number] [place] [address]- 2109 16 Dec, 2014 [facility] [place] [facility] [address] [id number] [place] [address]- 1132 Dec, [facility] [place] [facility] [address] [id number] [place] [address]- 6968 Nov, [facility] [place] [facility] [address] [id number] [place] [address]- 8244 Nov, [facility] [place] [facility] [address] [id number] [place] [address]- 7619 Nov, [facility] [place] [facility] [address] [id number] [place] [address]- 1892 Nov, [facility] [place] [facility] [address] [id number] [place] [address]- 7394 Nov, [facility] [place] [facility] [address] [id number] [place] [address]- 0574 Nov, [facility] [place] [facility] [address] [id number] [place] [address]- 7961 Oct, [facility] [place] [facility] [address] [id number] [place] [address]- 9176 Oct, [facility] [place] [facility] [address] [id number] [place] [address]- 5459 Sep, [facility] [place] [facility] [address] [id number] [place] [address]- 1298 Sep, [facility] [place] [facility] [address] [id number] [place] [address]- 2013 Sep, [facility] [place] [facility] [address] [id number] [place] [address]- 7533 Sep, [facility] [place] [facility] [address] [id number] [place] [address]- 5923 Aug, [facility] [place] [facility] [address] [id number] [place] [address]- 3286 Aug, [facility] [place] [facility] [address] [id number] [place] 2782 Jul, [facility] [place] [facility] [address] [id number] [place] [address]- 1442 Jul, [facility] [place] [facility] [address] [id number] [place] 9331 Jun, [facility] [place] [facility] [address] [id number] [place] [address]- 8623 Jun, [facility] [place] [facility] [address] [id number] [place] [address]- 8849 Jun, [facility] [place] [facility] [address] [id number] [place] [address]- 8980 Jun, [facility] [place] [facility] [address] [id number] [place] [address]- 2286 May, [facility] [place] [facility] [address] [id number] [place] [address]- 4011 May, [facility] [place] [facility] [address] [id number] [place] [address]- 5917 May, [facility] [place] [facility] [address] [id number] [place] [address]- 2166 May, [facility] [place] [facility] [address] [id number] [place] [address]- 8141 Apr, [facility] [place] [facility] [address] [id number] [place] [address]- 5769 Apr, [facility] [place] [facility] [address] [id number] [place] [address]- 9402 March, [facility] [place] [facility] [address] [id number] [place] [address]- 8319 March, [facility] [place] [facility] [address] [id number] [place] [address]- 4459 March, [facility] [place] [facility] [address] [id number] [place] [address]- 0949 March, [facility] [address] [id number] [place] [address]- 2740 March, [facility] [place] [facility] [address] [id number] [place] [address]- 7136 March, [facility] [address] [id number] [place] [address]- 5425 Feb, [facility] [place] [facility] [address] [id number] [place] [address]- 1653 Feb, [facility] [address] [id number] [place] [address]- 1970 Feb, [facility] [address] [id number] [place] [address]- 0518 Feb, [facility] [place] [facility] [address] [id number] [place] [address]- 7873 Feb, [facility] [address] [id number] [place] [address]- 1617 Feb, [facility] [place] [facility] [address] [id number] [place] [address]- 3032 Feb, [facility] [address] [id number] [place] [address]- 3221 Feb, [facility] [place] [facility] [address] [id number] [place] [address]- 4543 Jan, [facility] [place] [facility] [address] [id number] [place] [address]- 0540 Jan, [facility] [place] [facility] [address] [id number] [place] [address]- 1360 Jan, [facility] [place] [facility] [address] [id number] [place] [address]- 1241 Jan, [facility] [place] [facility] [address] [id number] [place] [address]- 2286 Jan, [facility] [place] [facility] [address] [id number] [place] [address]- 2234 13 Jan, 2014 [facility] [place] [facility] [address] [id number] [place] [address]- 5260 Jan, [facility] [place] [facility] [address] [id number] [place] [address]- 7476 Jan, [facility] [place] [facility] [address] [id number] [place] [address]- 0091 Jan, [facility] [place] [facility] [address] [id number] [place] [address]- 7653 Dec, [facility] [place] [facility] [address] [id number] [place] [address]- 9917 Dec, [facility] [place] [facility] [address] [id number] [place] [address]- 5658 Nov, [facility] [place] [facility] [address] [id number] [place] [address]- 3396 Nov, [facility] [place] [facility] [address] [id number] [place] [address]- 5289 Nov, [facility] [place] [facility] [address] [id number] [place] [address]- 4564 Nov, [facility] [place] [facility] [address] [id number] [place] [address]- 9200 Nov, [facility] [place] [facility] [address] [id number] [place] [address]- 9033 Nov, [facility] [place] [facility] [address] [id number] [place] [address]- 3803 Oct, [facility] [place] [facility] [address] [id number] [place] [address]- 5796 Oct, [facility] [place] [facility] [address] [id number] [place] [address] Sep, [facility] [place] [facility] [address] [id number] [place] [address] Sep, [facility] [place] [facility] [address] [id number] [place] [address] Sep, [facility] [place] [facility] [address] [id number] [place] [address] Sep, [facility] [place] [facility] [address] [id number] [place] [address] Sep, [facility] [place] [facility] [address] [id number] [place] [address] Sep, [facility] [place] [facility] [address] [id number] [place] [address] Sep, [facility] [place] [facility] [address] [id number] [place] [address] Sep, [facility] [place] [facility] [address] [id number] [place] [address] Aug, [facility] [place] [facility] [address] [id number] [place] [address] Aug, [facility] [place] [facility] [address] [id number] [place] [address] Aug, [facility] [place] [facility] [address] [id number] [place] [address]- [address] Jul, [facility] [place] [facility] [address] [id number] [place] [address] Jul, [facility] [place] [facility] [address] [id number], [place] [address] Jul, [facility] [place] [facility] [address] [id number] [place] [address] Jun, [facility] [place] [facility] [address] [id number] [place] [address] Jun, [facility] [place] [facility] [address] [id number], [place] [address] Jun, [facility] [place] [facility] [address] [id number] [place] [address] Jun, [facility] [place] [facility] [address] [id number] [place] [address]- [address] Jun, [facility] [place] [facility] [address] [id number] [place] [address]- [address] Jun, [facility] [place] [facility] [address] [id number] [place] [address] May, [facility] [place] [facility] [address] [id number] [place] [address] May, [facility] [place] [facility] [address] [id number] [place] [address] Apr, [facility] [place] [facility] [address] [id number] [place] [address] Apr, [facility] [place] [facility] [address] [id number] [place] [address] March, [facility] [address] [id number] [place] [address] Feb, [facility] [place] [facility] [address] [id number] [place] [address] Feb, [facility] [place] [facility] [address] [id number] [place] [address] Feb, [facility] [place] [facility] [address] [id number] [place] [address] Feb, [facility] [place] [facility] [address] [id number] [place] [address] Jan, [facility] [place] [facility] [address] [id number] [place] [address] Jan, [facility] [place] [facility] [address] [id number] [place] [address] Jan, [facility] [place] [facility] [address] [id number] [place] [address] Jan, [facility] [place] [facility] [address] [id number] [place] [address] Jan, [facility] [place] [facility] [address] [id number] [place] [address] Dec, [facility] [place] [facility] [address] [facility] [id number] [place] [address]- [address] Nov, [facility] [place] [facility] [address] [id number] [place] [address] Nov, [facility] [place] [facility] [address] [id number] [place] [address]- [address] Oct, [facility] [place] [facility] [address] [id number] [place] [address] 240[address] Oct, [facility] [place] [facility] [address] [facility] [id number] [place] [address] Oct, [facility] [place] [facility] [address] [id number] [address] Oct, [facility] [place] [facility] [address] [id number] [place] [address] Oct, [facility] [place] [facility] [address] [facility] [id number] [place] [address] Oct, [facility] [place] [facility] [address] [id number], [place] [address] Oct, [facility] [place] [facility] [address] [id number], [place] [address] Oct, [facility] [place] [facility] [address] [id number] [place] [address] Aug, [facility] [place] [facility] [address] [facility] [id number], [place] [address] Aug, [facility] [place] [facility] [address] [facility] [id number], [place] [address] Aug, [facility] [place] [facility] [address] [id number] [place] [address] 26 Aug, 2012 [facility] [address] [id number] [place] [address] 19 Aug, 2012 [facility] [place] [facility] [address] [id number] [place] [address] 19 Aug, 2012 [facility] [address] [id number] [place] [address] 15 Aug, 2012 [facility] [place] [facility] [address] [id number] [place] [address] 27 Jul, 2012 [facility] [place] [facility] [address] [id number] [place] [address] 27 Jul, 2012 [facility] [place] [facility] [address] [id number] [place] [address] 27 Jul, 2012 [facility] [place] [facility] [address] [id number] [place] [address]45 27 Jul, 2012 [facility] [address] [id number] [place] [address]- [address] 03 Jul, 2012 [facility] [place] [facility] [address] [id number] [place] [address] 28 Jun, 2012 [facility] [place] [facility] [address] [id number] [place] [address] Jun, [facility] [place] [facility] [address] [id number] [place] [address] Jun, [facility] [place] [facility] [address] [id number] [place] [address] May, [facility] [place] [facility] [address] [id number] [place] [address]- [address]184 May, [facility] [place] [facility] [address] [id number] [place] [address]- 59[address] May, [facility] [place] [facility] [address] [id number] [place] [address]- [address] May, [facility] [place] [facility] [address] [id number] [place] [address]- [address] 23 May, 2012 [facility] [place] [facility] [address] [id number] [place] [address]- [address] May, [facility] [place] [facility] [address] [id number] [place] [address]- 89[address] May, [facility] [place] [facility] [address] [id number] [place] [address]- 74[address] Apr, [facility] [place] [facility] [address] [id number] [place] [address] Apr, [facility] [place] [facility] [address] [id number] [place] [address] March, [facility] [place] [facility] [address] [id number] [place] [address] Feb, [facility] [place] [facility] [address] [id number] [place] [address]- [address]18 30 Jan, 2012 [facility] [place] [facility] [address] [id number] [place] [address]- [address] Jan, [facility] [place] [facility] [address] [id number] [place] [address]- [address] Jan, [facility] [place] [facility] [address] [id number] [place] [address]- 6967 Jan, [facility] [place] [facility] [address] [id number] [place] [address]- 7846 Jan, [facility] [place] [facility] [address] [id number] [place] [address] Jan, [facility] [place] [facility] [address] [id number] [place] [address]- 7866 Jan, [facility] [place] [facility] [address] [id number] [place] [address] Jan, [facility] [place] [facility] [address] [id number] [place] [address]- 9410 Jan, [facility] [address] [id number] [place] [address]- 89[address] Jan, [facility] [place] [facility] [address] [id number] [place] [address]- 2446 Dec, [facility] [place] [facility] [address] [id number] [place] [address]- 58[address] Dec, [facility] [place] [facility] [address] [id number] [place] [address]- [address] Dec, [facility] [place] [facility] [address] [id number] [place] [address]- [address] Dec, [facility] [place] [facility] [address] [id number] [place] [address]- 2824 Dec, [facility] [address] [id number] [place] [address]- 1770 Dec, [facility] [address] [id number] [place] [address]- 130[address] Dec, [facility] [address] [id number] [place] [address]- [address] Dec, [facility] [address] [id number] [place] [address]- [address] Nov, [facility] [place] [facility] [address] [id number] [place] [address] 2546 Nov, [facility] [place] [facility] [address] [id number] [place] [address]- 35[address] Nov, [facility] [place] [facility] [address] [id number] [place] [address]- 8362 Oct, [facility] [place] [facility] [address] [id number] [place] [address]- 6546 Oct, [facility] [place] [facility] [address] [id number] [place] [address]- [address] Oct, [facility] [address] [facility] [id number] [place] [address] Oct, [facility] [address] [facility] [id number] [place] [address]- [address] Sep, IMMUNIZATIONS No Known Immunizations SOCIAL [...]
--- OUTSIDE RECORDS SUMMARY | 2019-01-08 00:03 | XMS REPORT ---
Author Author LEELA Dickinson Organization [facility] Address [address] [place] [address] Care Team Providers Care Industrial Relations Specialist Name Role Phone LEELA Dickinson Unavailable PROBLEMS Type Condition ICD9-CM Code PFA10-SF Code Onset Dates Condition Status SNOMED Code Problem Panlobular emphysema J43.1 Active 8838153 Problem Acquired hypothyroidism E03.9 Active 595449704 Problem Hypothyroidism, unspecified E03.9 Active 78478486 Problem Type 2 diabetes mellitus without complications E11.9 Active 126614691 Problem Hypercholesterolemia 272.0 Active 58962419 Problem Other chronic pain G89.29 Active 32799292 Problem Controlled type 2 diabetes mellitus without complication, without long -term current use of insulin E11.9 Active [id number] ALLERGIES Substance Reaction Event Type Date Status Rocephin Unknown Drug Allergy Oct, Active Penicillin V Potassium Unknown Drug Allergy Oct, Active Nsaids (non-steroidal Anti-inflammatory Drug) renal insuffiency Non Drug Allergy Oct, Active ENCOUNTERS Encounter Location Date Diagnosis [place] [id number] [place] [address] 57255- 7354 Apr, Viral gastroenteritis A08.4 and Acquired hypothyroidism E03.9 [place] [address] [place] [id number] [place] [address] 49423- 0538 Apr, Type 2 diabetes mellitus without complications E11.9 and Panlobular emphysema J43.1 [facility] [address] [place] [id number] [place] [address] 09574- 2567 Apr, Viral gastroenteritis A08.4 [facility] [address] [place] [id number] [place] [address] 93534- 4796 March, [facility] [address] [place] [id number] [place] [address] 02105- 9750 March, Viral gastroenteritis A08.4 [place] [id number] [place] [address] 93426- 2117 Feb, Panlobular emphysema J43.1 [place] [address] [place] [id number] [place] [address] 29180- 5341 Feb, Panlobular emphysema J43.1 [place] [address] [place] [id number] [place] [address] 22771- 4740 Feb, [place] [address] [place] [id number] [place] [address] 43768- 1932 Feb, [place] [address] [place] [id number] [place] [address] 64973- 0588 Feb, Viral gastroenteritis A08.4 [place] [address] [place] [id number] [place] [address] 95190- 5313 Feb, Head lice B85.0 [place] [address] [place] [id number] [place] [address] 17007- 2735 Feb, Medicare annual wellness visit, initial Z00.00 ; Head lice B85.0 ; Tinea corporis B35.4 and Enlarged lymph node R59.9 [place] [id number] [place] [address] 73564- 5167 Jan, Viral gastroenteritis A08.4 [place] [address] [place] [id number] [place] [address] 03506- 6391 Jan, [place] [address] [place] [id number] [place] [address] 53124- 8926 Dec, Controlled type 2 diabetes mellitus without complication, without long-term current use of insulin E11.9 [place] [id number] [place] [address] 50465- 9752 Dec, [place] [address] [place] [id number] [place] [address] 68854- 8422 Dec, Viral gastroenteritis A08.4 [place] [address] [place] [id number] [place] [address] 70636- 2252 Nov, Viral gastroenteritis A08.4 [place] [address] [place] [id number] [place] [address] 61214- 6329 Oct, Acute upper respiratory infection, unspecified J06.9 and Other viral agents as the cause of diseases classified elsewhere B97.89 [place] [address] 42067- 3922 Oct, Viral gastroenteritis A08.4 [place] [address] [place] [id number] [place] [address] 17088- 7202 Oct, Controlled type 2 diabetes mellitus without complication, without long-term current use of insulin E11.9 ; Encounter for immunization Z23 and Acute pain of left foot M79.672 [place] [address] 95152- 0931 Sep, Viral gastroenteritis A08.4 [place] [address] [place] [id number] [place] [address] 78509- 3025 Aug, Viral gastroenteritis A08.4 [place] [address] 99746- 9974 Jul, Viral gastroenteritis A08.4 [facility] [address] [place] [id number] [place] [address] 63251 -7778 Jul, Acute nasopharyngitis (common cold) J00 [place] [address] [place] [id number] [place] [address] 29370- 1220 Jun, Viral gastroenteritis A08.4 [place] [address] [place] [id number] [place] [address] 68322- 2782 Jun, [place] [address] 74812- 9834 Jun, Viral gastroenteritis A08.4 [place] [address] [place] [id number] [place] [address] 63518- 1728 May, Patellar tendinitis, left knee M76.52 [place] [address] [place] [id number] [place] [address] 91263- 9424 May, Viral gastroenteritis A08.4 [facility] [address] [place] [id number] [place] [address] 28259- 4198 16 Apr, 2017 Viral gastroenteritis A08.4 and Hypothyroidism, unspecified E03.9 [place] [address] [place] [id number] [place] [address] 43817- 3432 15 Apr, 2017 Pain in left knee M25.562 ; Acute left-sided low back pain without sciatica M54.5 and Type 2 diabetes mellitus without complications E11.9 [place] [address] [place] [id number] [place] [address] 35318- 4858 07 Apr, 2017 Viral gastroenteritis A08.4 [place] [address] [place] [id number] [place] [address] 23169- 2473 March, Viral gastroenteritis A08.4 [facility] [address] [place] [id number] [place] [address] 14633 -4376 Feb, Acute pain of left knee M25.562 [place] [address] [place] [id number] [place] [address] 17539- 1810 13 Feb, 2017 Viral gastroenteritis A08.4 [place] [address] [place] [id number] [place] [address] 22086- 8668 16 Jan, 2017 Viral gastroenteritis A08.4 and Controlled type 2 diabetes mellitus without complication, without long-term current use of insulin E11.9 [place] [address] [place] [address] 22948- 0053 14 Jan, 2017 [facility] [address] [place] [id number] [place] [address] 91954- 2028 16 Dec, 2016 Other chronic pain G89.29 ; Pain in left knee M25.562 ; Controlled type 2 diabetes mellitus without complication, without long-term current use of insulin E11.9 and Acute cystitis with hematuria N30.01 [place] [address] [place] [id number] [place] [address] 59028- 5165 Dec, [facility] [address] [place] [id number] [place] [address] 91259- 7024 Nov, Type 2 diabetes mellitus without complications E11.9 [facility] [address] [place] [id number] [place] [address] 89424- 7116 Nov, [facility] [address] 19354- 4907 Oct, [facility] [address] [place] [id number] [place] [address] 76776- 3634 Sep, [place] [address] 96438- 8372 Aug, [place] [address] [place] [id number] [place] [address] 32335- 8926 Aug, [facility] [address] [place] [id number] [place] [address] 33031- 2232 Jul, Controlled type 2 diabetes mellitus without complication, without long-term current use of insulin E11.9 ; Callus of foot L84 and URI, acute J06.9 [place] [address] [place] [id number] [place] [address] 44309- 1646 Jul, [place] [address] [place] [id number] [place] [address] 23701- 5650 Jun, Onychomycosis B35.1 and Nail ingrowing L60.0 [place] [address] [place] [id number] [place] [address] 09202- 5558 Jun, [place] [address] [place] [id number] [place] [address] 56691- 0308 Jun, Lumbar back pain with radiculopathy affecting left lower extremity M54.17 [place] [address] [place] [id number] [place] [address] 11025- 9486 Jun, [facility] [address] [place] [id number] [place] [address] 40216- 1315 Jun, Other chronic pain G89.29 [facility] [address] [place] [address] 59798- 7713 Jun, Other chronic pain G89.29 [facility] [address] [place] [address]- 2151 Jun, Type 2 diabetes mellitus without complications E11.9 [facility] [address] [place] [id number] [place] [address] 33148- 7899 Jun, [facility] [address] [place] [id number] [place] [address] 57764- 0750 Jun, Onychomycosis B35.1 ; Callus L84 and Rash R21 [facility] [address] [place] [id number] [place] [address] 95783- 2133 May, [facility] [address] [place] [id number] [place] [address] 67796- 2053 May, [facility] [address] [place] [id number] [place] [address] 46007- 0133 May, Type 2 diabetes mellitus without complications E11.9 [facility] [address] [place] [address] 35375- 9476 May, [facility] [address] [place] [address] 87515- 3060 Apr, [facility] [address] [place] [address] 99614- 8702 Apr, Type 2 diabetes mellitus without complications E11.9 ; Acquired hypothyroidism E03.9 ; Callus of foot L84 and Upper respiratory tract infection, unspecified type J06.9 [facility] [address] [place] [address]- 7769 March, [facility] [address] [place] [address]- 2378 Feb, [facility] [address] [place] [id number] [place] [address] 46953- 4511 Jan, Diabetes mellitus without mention of complication, type II or unspecified type, not stated as uncontrolled 250.00 [facility] [address] [place] [id number] [place] [address] 86817- 0378 Jan, [facility] [address] [place] [id number] [place] [address] 35121- 5492 16 Jan, 2016 Diabetes E11.9 and Hypothyroidism E03.9 [facility] [address] [place] [id number] [place] [address] 26143- 0430 29 Dec, 2015 Diarrhea R19.7 [facility] [address] [place] [id number] [place] [address] 55038- 9146 Dec, [facility] [address] [place] [id number] [place] [address] 28936- 0383 Dec, Hypothyroidism, unspecified E03.9 [facility] [address] [place] [id number] [place] [address] 36434- 6268 Dec, [facility] [address] [place] [id number] [place] [address] 31391- 5159 Dec, Hypothyroidism, unspecified E03.9 [facility] [address] [place] [id number] [place] [address] 35184- 3458 04 Dec, 2015 Diarrhea R19.7 [facility] [address] [place] [id number] [place] [address] 62169- 9004 Dec, Diarrhea R19.7 [facility] [address] [place] [id number] [place] [address] 00224- 8251 Nov, [facility] [address] [place] [id number] [place] [address] 05282- 2061 Nov, [facility] [address] [place] [id number] [place] [address] [id number]- 1763 Oct, [facility] [address] [place] [id number] [place] [address] 01840- 6082 Sep, Postnasal drip R09.82 [facility] [address], [place] [address]- 3766 Sep, [facility] [address] [place] [id number] [place] [address] 05366- 6344 Sep, [facility] [address] [place] [id number] [place] [address] 193328- 5919 Aug, [facility] [address] 916249- 4411 Aug, [facility] [address] [place] [id number] [place] [address] 77448- 2182 Jul, Hypothyroidism 244.9 [facility] [address] [place] [id number] [place] [address] 02299- 6612 Jul, Diabetes mellitus without mention of complication, type II or unspecified type, not stated as uncontrolled 250.00 [facility] [address] [place] [id number] [place] [address] 34359- 1623 Jul, [facility] [address] [place] [id number] [place] [address] 72849- 4816 Jul, [facility] [address] [place] [id number] [place] [address] 18913- 5964 Jun, [facility] [address] [place] [id number] [place] [address] 97269- 2244 May, Other chronic pain 338.29 [facility] [address] [place] [id number] [place] [address] 77525- 3634 May, Other chronic pain 338.29 [facility] [address] [place] [id number] [place] [address] 32258- 7057 May, [facility] [address] [place] [id number] [place] [address] 121896- 9257 May, [facility] [address] [place] [id number] [place] [address] 57757- 9249 Apr, Rash 782.1 ; Hypercholesterolemia 272.0 and Hypothyroidism 244.9 [facility] [address] [facility] [id number] [place] [address]- 2835 Apr, [facility] [place] [facility] [address] [facility] [id number] [place] [address]- 5193 Apr, [facility] [place] [facility] [address] [place] [id number] [place] [address]- 0855 March, [facility] [place] [facility] [address] [facility] [id number], [place] [address]- 6933 Feb, [facility] [place] [facility] [address] [facility] [id number] [place] [address]- 3768 Feb, [facility] [place] [facility] [address] [facility] [id number] [place] [address]- 7506 Jan, [facility] [place] [facility] [address] [place] [address]- 2359 Jan, [facility] [place] [facility] [address] [facility] [id number], [place] [address]- 2903 Jan, [facility] [place] [facility] [address] [place] [id number] [place] [address]- 8070 Jan, [facility] [place] [facility] [id number], [place] [address]- 8443 Jan, [facility] [place] [facility] [address] [place] [id number] [address]- 5649 Jan, [facility] [place] [facility] [address] [facility] [id number], [place] [address]- 1390 Jan, [facility] [place] [facility] [address] [facility] [id number], [place] [address]- 5145 Dec, [facility] [place] [facility] [address] [facility] [id number], [place] [address]- 1789 Dec, [facility] [place] [facility] [address] [place] [id number], [place] [address]- 7956 Nov, [facility] [place] [facility] [address] [facility] [id number] [place] [address]- 7117 Nov, [facility] [address] [id number] [place] [address]- 2445 Nov, [facility] [place] [facility] [address] [id number] [place] [address]- 2630 Nov, [facility] [address] [id number] [place] [address]- 5659 Nov, [facility] [place] [facility] [address] [id number] [place] [address]- 5658 Nov, [facility] [address] [id number] [place] [address]- 6477 Oct, [facility] [place] [facility] [address] [id number] [place] [address]- 6549 Oct, [facility] [address] [id number] [place] [address]- 1220 Sep, [facility] [address] [id number] [place] [address]- 3318 Sep, [facility] [place] [facility] [address] [id number] [place] [address]- 8739 Sep, [facility] [place] [facility] [address] [id number] [place] [address]- 0830 Sep, [facility] [place] [facility] [address] [id number] [place] [address]- 3320 Aug, [facility] [place] [facility] [address] [id number] [place] [address]- 3845 Aug, [facility] [place] [facility] [address] [id number] [place] [address]- 2577 Jul, [facility] [place] [facility] [address] [id number] [place] [address]- 0194 Jul, [facility] [place] [facility] [address] [id number] [place] [address]- 0595 Jun, [facility] [place] [facility] [address] [id number] [place] [address]- 6574 Jun, [facility] [place] [facility] [address] [id number] [place] [address]- 3550 Jun, [facility] [place] [facility] [address] [id number] [place] [address]- 8818 Jun, [facility] [place] [facility] [address] [id number] [place] [address]- 0457 May, [facility] [place] [facility] [address] [id number] [place] [address]- 6821 May, [facility] [place] [facility] [address] [id number] [place] [address]- 5118 May, [facility] [place] [facility] [address] [id number] [place] [address]- 7850 May, [facility] [place] [facility] [address] [id number] [place] [address]- 6254 Apr, [facility] [place] [facility] [address] [id number] [place] [address]- 0907 Apr, [facility] [place] [facility] [address] [id number] [place] [address]- 8654 March, [facility] [place] [facility] [address] [id number] [place] [address]- 2217 March, [facility] [place] [facility] [address] [id number] [place] [address]- 1139 March, [facility] [place] [facility] [address] [id number] [place] [address]- 3222 March, [facility] [place] [facility] [address] [id number] [place] [address]- 7916 March, [facility] [place] [facility] [address] [id number] [place] [address]- 4642 March, [facility] [place] [facility] [address] [id number] [place] [address]- 0503 Feb, [facility] [place] [facility] [address] [id number] [place] [address]- 9672 Feb, [facility] [place] [facility] [address] [id number] [place] [address]- 1481 Feb, [facility] [place] [facility] [address] [id number] [place] [address]- 1835 Feb, [facility] [place] [facility] [address] [id number] [place] [address]- 1528 Feb, [facility] [place] [facility] [address] [id number] [place] [address]- 4447 Feb, [facility] [place] [facility] [address] [id number] [place] [address]- 5952 Feb, [facility] [place] [facility] [address] [id number] [place] [address]- 5209 Feb, [facility] [place] [facility] [address] [id number] [place] [address]- 5022 Jan, [facility] [place] [facility] [address] [id number] [place] [address]- 6960 Jan, [facility] [place] [facility] [address] [id number] [place] [address]- 9683 Jan, [facility] [place] [facility] [address] [id number] [place] [address]- 7904 Jan, [facility] [place] [facility] [address] [id number] [place] [address]- 7703 Jan, [facility] [place] [facility] [address] [id number] [place] [address]- 9881 Jan, [facility] [place] [facility] [address] [id number] [place] [address]- 2265 Jan, [facility] [place] [facility] [address] [id number] [place] [address]- 1708 10 Jan, 2014 [facility] [place] [facility] [address] [id number] [place] [address]- 4807 Jan, [facility] [place] [facility] [address] [id number] [place] [address]- 9713 Dec, [facility] [place] [facility] [address] [id number] [place] [address]- 3828 Dec, [facility] [place] [facility] [address] [id number] [place] [address]- 9849 Nov, [facility] [place] [facility] [address] [id number] [place] [address]- 6490 Nov, [facility] [place] [facility] [address] [id number] [place] [address]- 0622 Nov, [facility] [place] [facility] [address] [id number] [place] [address] Nov, [facility] [place] [facility] [address] [id number] [place] [address] Nov, [facility] [place] [facility] [address] [id number] [place] [address] Nov, [facility] [place] [facility] [address] [id number] [place] [address] Oct, [facility] [place] [facility] [address] [id number] [place] [address] Oct, [facility] [place] [facility] [address] [id number] [place] [address] Sep, [facility] [place] [facility] [address] [id number] [place] [address] Sep, [facility] [place] [facility] [address] [id number] [place] [address] Sep, [facility] [place] [facility] [address] [id number] [place] [address] Sep, [facility] [place] [facility] [address] [id number] [place] [address] Sep, [facility] [place] [facility] [address] [id number] [place] [address] Sep, [facility] [place] [facility] [address] [id number] [place] [address] Sep, [facility] [place] [facility] [address] [id number] [place] [address] Sep, [facility] [place] [facility] [address] [id number] [place] [address] Aug, [facility] [place] [facility] [address] [id number] [place] [address] Aug, [facility] [place] [facility] [address] [id number] [place] [address] Aug, [facility] [place] [facility] [address] [id number] [place] [address] Jul, [facility] [place] [facility] [address] [id number] [place] [address] Jul, [facility] [place] [facility] [address] [id number] [place] [address] Jul, [facility] [place] [facility] [address] [id number] [place] [address] Jun, [facility] [place] [facility] [address] [id number], [place] [address] Jun, [facility] [place] [facility] [address] [id number], [place] [address] Jun, [facility] [place] [facility] [address] [id number] [place] [address] Jun, [facility] [place] [facility] [address] [id number], [place] [address] Jun, [facility] [place] [facility] [address] [id number] [place] [address] Jun, [facility] [place] [facility] [address] [id number] [place] [address] May, [facility] [address] [id number] [place] [address] May, [facility] [address] [id number] [place] [address] Apr, [facility] [address] [id number] [place] [address] Apr, [facility] [address] [id number] [place] [address] March, [facility] [address] [id number] [place] [address] Feb, [facility] [address] [id number] [place] [address] Feb, [facility] [address] [id number] [place] [address] 16 Feb, 2013 [facility] [address] [id number] [place] [address] Feb, [facility] [address] [id number] [place] [address] Jan, [facility] [address] [id number] [place] [address] Jan, [facility] [address] [id number] [place] [address] Jan, [facility] [address] [id number] [place] [address] Jan, [facility] [place] [facility] [address] [id number] [place] [address]- [address] 05 Jan, 2013 [facility] [place] [facility] [address] [id number] [place] [address] Dec, [facility] [address] [id number] [place] [address] Nov, [facility] [place] [facility] [address] [id number] [place] [address] Nov, [facility] [place] [facility] [address] [id number] [place] [address] Oct, [facility] [address] [id number] [place] [address] Oct, [facility] [place] [facility] [address] [id number] [place] [address] Oct, [facility] [address] [id number] [place] [address] Oct, [facility] [place] [facility] [address] [id number] [place] [address] Oct, [facility] [address] [id number] [place] [address] Oct, [facility] [address] [id number] [place] [address] Oct, [facility] [address] [id number] [place] [address] Oct, [facility] [place] [facility] [address] [id number] [place] [address] Aug, [facility] [place] [facility] [address] [id number] [place] [address] Aug, [facility] [place] [facility] [address] [id number], [place] [address] Aug, [facility] [place] [facility] [address] [id number] [place] [address] Aug, [facility] [place] [facility] [address] [id number] [place] [address] Aug, [facility] [place] [facility] [address] [id number] [place] [address] Aug, [facility] [place] [facility] [address] [id number], [place] [address] 15 Aug, 2012 [facility] [place] [facility] [address] [id number] [place] [address] 27 Jul, 2012 [facility] [place] [facility] [address] [id number] [place] [address] Jul, [facility] [place] [facility] [address] [id number] [place] [address] Jul, [facility] [place] [facility] [address] [id number] [place] [address] Jul, [facility] [place] [facility] [address] [id number] [place] [address] Jul, [facility] [place] [facility] [address] [id number] [place] [address] Jun, [facility] [place] [facility] [address] [id number] [place] [address] Jun, [facility] [place] [facility] [address] [id number] [place] [address] Jun, [facility] [place] [facility] [address] [id number] [place] [address] May, [facility] [place] [facility] [address] [id number] [place] [address] May, [facility] [place] [facility] [address] [id number] [place] [address] May, [facility] [place] [facility] [address] [id number] [place] [address] 94[address] May, [facility] [place] [facility] [address] [id number] [place] [address]69 May, [facility] [place] [facility] [address] [id number] [place] [address] May, [facility] [place] [facility] [address] [id number] [place] [address] May, [facility] [place] [facility] [address] [id number] [place] [address] 28 Apr, 2012 [facility] [place] [facility] [address] [id number] [place] [address] Apr, [facility] [place] [facility] [address] [id number] [place] [address] March, [facility] [place] [facility] [address] [id number] [place] [address] Feb, [facility] [place] [facility] [address] [id number] [place] [address] 30 Jan, 2012 [facility] [place] [facility] [address] [id number] [place] [address] Jan, [facility] [place] [facility] [address] [id number] [place] [address] Jan, [facility] [place] [facility] [address] [id number] [place] [address] Jan, [facility] [address] [id number] [place] [address] Jan, [facility] [place] [facility] [address] [id number] [place] [address] Jan, [facility] [place] [facility] [address] [id number] [place] [address] 2010 Jan, [facility] [place] [facility] [address] [id number] [place] [address] Jan, [facility] [place] [facility] [address] [id number] [place] [address] Jan, [facility] [place] [facility] [address] [id number] [place] [address] Jan, [facility] [place] [facility] [address] [id number] [place] [address] Dec, [facility] [place] [facility] [address] [id number] [place] [address] Dec, [facility] [id number] [place] [address] Dec, [facility] [id number], [place] [address] Dec, [facility] [id number], [place] [address] Dec, [facility] [id number], [place] [address] Dec, [facility] [id number], [place] [address] Dec, [facility] [id number] [place] [address] Dec, [facility] [id number], [place] [address] Nov, [facility] [id number] [place] [address] Nov, [facility] [id number], [place] [address] Nov, [facility] [id number], [place] [address] Oct, [facility] [address], [place] [address] Oct, [facility] [id number], [place] [address] Oct, [facility] [id number] [address] [address] Oct, [facility] [id number] [id number] Sep, IMMUNIZATIONS No Known Immunizations SOCIAL HISTORY Never Assessed REASON FOR VISIT Cough--CarleyleachMA, Causing chest pain, stomach pain, Shortness of breath PLAN OF CARE Activity Details Follow Up prn Reason: VITAL SIGNS Height 64 in 2017-11-18 Weight 208.0 lbs 2017-11-18 Temperature 97.8 degrees Fahrenheit 2017-11-18 Heart Rate 70 bpm 2017-11-18 Respiratory Rate 24 2017-11-18 BMI 35.70 kg/m2 2017-11-18 Blood pressure systolic 120 mmHg 2017-11-18 Blood pressure diastolic 90 mmHg 2017-11-18 MEDICATIONS Medication Instructions Dosage Frequency Start Date End Date Duration Status Metformin HCl 500 MG Orally 2 times a day 2 tablets 12h Active Ropinirole HCl 4 MG TAKE ONE TABLET BY MOUTH ONCE DAILY 30 Active PredniSONE 10 mg Orally once daily, morning with food 4 tablet x 2 day, then 3 tablets x 2 days, then 2 tablets x 2 days, then 1 tablets x 2 days 30 day(s) Active Crestor 40 MG Orally Once a day 1 tablet 24h 30 Active Montelukast Sodium 10 MG 1 tablet 24h 30 Active Levothyroxine Sodium 125 mcg Orally Once a day 1 tablet on an empty stomach in the morning 24h Active Ranitidine HCl 150 MG Orally Twice a day 1 tablet 12h Active Promethazine-Codeine 6.25-10 MG/5ML Orally every 6 hrs PRN cough 5 ml Active [place] 10-325 MG Orally every 6 hrs 1 tablet as needed 6h Oct, 28 days Active Azithromycin 250 MG Orally Once a day 2 tablets on day 1, the take 1 tablet day 2-5 24h 5 day(s) Active Zofran 4 MG Orally 3 times a day 1 tablet 8h 10 Active Myrbetriq 50 MG TAKE ONE TABLET BY MOUTH ONCE DAILY Apr, 30 Active RESULTS No Results PROCEDURES No Known procedures INSTRUCTIONS MEDICATIONS ADMINISTERED No Known Medications MEDICAL (GENERAL) HISTORY Type Description Date Medical History cardiovascular disorder-CAD s/p CABG x 2 ([facility]) Medical History hypertension Medical History hyperlipidemia Medical [...] intraocular lens prosthesis Hospitalization History admitted to [facility] for bronchitis then went into cardiac arrest and was resuscitated. She was in the hospital for 7 days. 2012 Hospitalization History surgeries
--- OUTSIDE RECORDS SUMMARY | 2019-01-08 00:04 | XMS REPORT ---
Author Author NALINI GOMEZ Organization [facility] Address [address] [place] [address] Care Team Providers Care Manager Operating Name Role Phone NALINI GOMEZ Unavailable PROBLEMS Type Condition ICD9-CM Code MVI57-UN Code Onset Dates Condition Status SNOMED Code Problem Hypothyroidism, unspecified E03.9 Active 35122758 Problem Other chronic pain G89.29 Active 02300698 Problem Hypercholesterolemia 272.0 Active 38053862 Problem Controlled type 2 diabetes mellitus without complication, without long -term current use of insulin E11.9 Active 556446566 Problem Type 2 diabetes mellitus without complications E11.9 Active [id number] ALLERGIES No Information ENCOUNTERS Encounter Location Date Diagnosis [place] [address] 67[address]- [address]478 Feb, Head lice B85.0 [place] [address] [place] [id number] [place] [address] 26399- 4145 Feb, Medicare annual wellness visit, initial Z00.00 ; Head lice B85.0 ; Tinea corporis B35.4 and Enlarged lymph node R59.9 [place] [address] [place] [id number] [place] [address] 22735- 6004 Jan, Viral gastroenteritis A08.4 [place] [address] 05356- 2522 Jan, [place] [address] 88828- 1506 Dec, Controlled type 2 diabetes mellitus without complication, without long-term current use of insulin E11.9 [place] [address] 61988- 3263 Dec, [place] [address] 29195- 6831 Dec, Viral gastroenteritis A08.4 [facility] [address] [place] [id number] [place] [address] 61761- 1316 Nov, Viral gastroenteritis A08.4 [place] [address] [place] [address] [id number] [place] [address] 26722- 2868 Oct, Acute upper respiratory infection, unspecified J06.9 and Other viral agents as the cause of diseases classified elsewhere B97.89 [place] [address] [place] [id number] [place] [address] 34464- 2890 Oct, Viral gastroenteritis A08.4 [place] [address] [place] [id number] [place] [address] 80451- 5122 Oct, Controlled type 2 diabetes mellitus without complication, without long-term current use of insulin E11.9 ; Encounter for immunization Z23 and Acute pain of left foot M79.672 [place] [address] [place] [address] [id number] [place] [address] 49047- 9508 Sep, Viral gastroenteritis A08.4 [place] [address] [place] [id number] [place] [address] 57742- 2549 Aug, Viral gastroenteritis A08.4 [place] [address] [place] [address] [id number] [place] [address] 55095- 4967 Jul, Viral gastroenteritis A08.4 [facility] [address] [place] [id number] [place] [address] 88682 -4521 Jul, Acute nasopharyngitis (common cold) J00 [facility] [address] [place] [id number] [place] [address] 64235- 5500 Jun, Viral gastroenteritis A08.4 [place] [address] [place] [id number] [place] [address] 84854- 1045 Jun, [place] [address] [place] [id number] [place] [address] 57062- 1174 Jun, Viral gastroenteritis A08.4 [place] [address] [place] [id number] [place] [address] 79272- 4210 May, Patellar tendinitis, left knee M76.52 [place] [address] [place] [id number] [place] [address] 27817- 7885 05 May, 2017 Viral gastroenteritis A08.4 [place] [address] [place] [id number] [place] [address] 79435- 7597 16 Apr, 2017 Viral gastroenteritis A08.4 and Hypothyroidism, unspecified E03.9 [place] [address] [place] [id number] [place] [address] 82718- 8210 15 Apr, 2017 Pain in left knee M25.562 ; Acute left-sided low back pain without sciatica M54.5 and Type 2 diabetes mellitus without complications E11.9 [place] [address] [place] [id number] [place] [address] 08002- 7119 07 Apr, 2017 Viral gastroenteritis A08.4 [place] [address] [place] [id number] [place] [address] 76767- 4084 March, Viral gastroenteritis A08.[address] [facility] [address] [place] [id number] [place] [address] 00948 -1620 Feb, Acute pain of left knee M25.562 [place] [address] [place] [id number] [place] [address] 86246- 0005 Feb, Viral gastroenteritis A08.4 [place] [address] [place] [id number] [place] [address] 10433- 7919 16 Jan, 2017 Viral gastroenteritis A08.4 and Controlled type 2 diabetes mellitus without complication, without long-term current use of insulin E11.9 [place] [address] [place] [id number] [place] [address] 04408- 0506 14 Jan, 2017 [place] [address] [place] [id number] [place] [address] 32047- 5526 16 Dec, 2016 Other chronic pain G89.29 ; Pain in left knee M25.562 ; Controlled type 2 diabetes mellitus without complication, without long-term current use of insulin E11.9 and Acute cystitis with hematuria N30.01 [facility] [id number] [address]- 0251 Dec, [facility] [address] [place] [id number] [place] [address] 35592- 7750 Nov, Type 2 diabetes mellitus without complications E11.9 [facility] [address] [place] [id number] [place] [address] 96339- 4362 Nov, [facility] [address] [place] [id number] [place] [address] 57735- 3380 Oct, [facility] [address] [place] [id number] [place] [address] 84595- 0029 Sep, [place] [address] [place] [id number] [place] [address] 12074- 7173 Aug, [place] [address] [place] [id number] [place] [address] 82411- 1213 Aug, [place] [address] [place] [id number] [place] [address] 18274- 1625 Jul, Controlled type 2 diabetes mellitus without complication, without long-term current use of insulin E11.9 ; Callus of foot L84 and URI, acute J06.9 [place] [id number] [place] [address] 20680- 9352 Jul, [place] [address] [place] [id number] [place] [address] 00260- 0613 Jun, Onychomycosis B35.1 and Nail ingrowing L60.0 [place] [address] [place] [id number] [place] [address] 56667- 3161 Jun, [place] [address] [place] [id number] [place] [address] 19006- 9974 Jun, Lumbar back pain with radiculopathy affecting left lower extremity M54.17 [place] [address] [place] [id number] [place] [address] 35362- 7816 Jun, [facility] [id number] [address]- 2484 Jun, Other chronic pain G89.29 [facility] [id number] [address]- 3583 Jun, Other chronic pain G89.29 [facility] [id number] [address]- 2152 Jun, Type 2 diabetes mellitus without complications E11.9 [facility] [id number] [address]- 1062 Jun, [facility] [address] [place] [id number] [place] [address] 09529- 7904 Jun, Onychomycosis B35.1 ; Callus L84 and Rash R21 [facility] [id number] [address]- 2266 May, [facility] [address] [address]- 6844 May, [facility] [id number] [address]- 9565 May, Type 2 diabetes mellitus without complications E11.9 [facility] [id number] [address]- 4902 May, [facility] [address] [address]- 1315 Apr, [facility] [address] [address]- 7221 Apr, Type 2 diabetes mellitus without complications E11.9 ; Acquired hypothyroidism E03.9 ; Callus of foot L84 and Upper respiratory tract infection, unspecified type J06.9 [facility] [id number] [address]- 3369 March, [facility] [id number] [address]- 1645 Feb, [facility] [id number] [address]- 6141 Jan, Diabetes mellitus without mention of complication, type II or unspecified type, not stated as uncontrolled 250.00 [facility] [address] [place] [id number] [place] [address] 69934- 4939 Jan, [facility] [address] [place] [id number] [place] [address] 29737- 3347 Jan, Diabetes E11.9 and Hypothyroidism E03.9 [facility] [address] [place] [id number] [place] [address] 43348- 6189 Dec, Diarrhea R19.7 [facility] [address] [place] [id number] [place] [address] 41813- 9357 Dec, [facility] [address] [place] [id number] [place] [address] 93923- 4293 Dec, Hypothyroidism, unspecified E03.9 [facility] [address] [place] [id number] [place] [address] 76440- 3193 Dec, [facility] [address] [place] [id number] [place] [address] 09146- 8164 Dec, Hypothyroidism, unspecified E03.9 [facility] [id number] [place] [address] 22957- 7025 Dec, Diarrhea R19.7 [facility] [address] [place] [id number] [place] [address] 13265- 1980 Dec, Diarrhea R19.7 [facility] [address] [place] [id number] [place] [address] 95152- 6396 Nov, [facility] [address] [place] [id number] [place] [address] 14677- 7389 Nov, [facility] [address] [place] [id number] [place] [address] 93925- 0981 Oct, [facility] [address] [place] [id number] [address]- 6768 Sep, Postnasal drip R09.82 [facility] [address] [place] [address] [id number] [address]- 8547 Sep, [facility] [address] [place] [id number] [place] [address] 34168- 1135 Sep, [facility] [address] [place] [id number] [place] [address] 58660- 5610 Aug, [facility] [address] [place] [id number] [place] [address] 32373- 6955 Aug, [facility] [address] [place] [id number] [place] [address] 49447- 6282 Jul, Hypothyroidism 244.9 [facility] [address] [place] [id number] [place] [address] 99908- 9811 Jul, Diabetes mellitus without mention of complication, type II or unspecified type, not stated as uncontrolled 250.00 [facility] [id number] [place] [address] 77950- 3790 Jul, [facility] [address] [place] [id number] [place] [address] 62958- 6877 Jul, [facility] [id number] [address]- 2848 Jun, [facility] [id number] [place] [address] 24360- 3849 May, Other chronic pain 338.29 [facility] [id number] [place] [address] 03302- 6048 10 May, 2015 Other chronic pain 338.29 [facility] [address] [place] [id number] [place] [address] 542392- 2606 May, [facility] [id number] 9856 May, [facility] [address] [place] [id number] [place] [address] 85612- 5687 Apr, Rash 782.1 ; Hypercholesterolemia 272.0 and Hypothyroidism 244.9 [facility] [address] [place] [id number] [place] [address]- 7791 Apr, [facility] [address] [facility] [id number] [place] [address]- 8396 Apr, [facility] [address] [facility] [id number] [address]- 8911 March, [facility] [address] [facility] [id number] [place] [address]- 8639 Feb, [facility] [id number] [place] [address], [place] [address]- 8477 Feb, [facility] [address] [place] [id number] [address]- 5367 Jan, [facility] [address] [place] [address]- 6362 Jan, [facility] [address] [place] [id number] [address]- 3782 Jan, [facility] [address] [address]- 6341 Jan, [facility] [address] [place] [id number] [address]- 1030 Jan, [facility] [id number] [address]- 1463 Jan, [facility] [address] [place] [address] [id number] [address]- 2442 Jan, [facility] [id number] [address]- 7397 Dec, [facility] [address] [place] [address] [id number] [address]- 5841 Dec, [facility] [address] [address]- 9218 Nov, [facility] [place] [facility] [address] [id number] [place] [address]- 6955 Nov, [facility] [place] [facility] [address] [id number] [place] [address]- 1470 Nov, [facility] [place] [facility] [address] [id number] [place] [address]- 9050 Nov, [facility] [place] [facility] [address] [id number] [place] [address]- 9376 Nov, [facility] [place] [facility] [address] [id number] [place] [address]- 0435 Nov, [facility] [place] [facility] [address] [id number] [place] [address]- 8870 Oct, [facility] [place] [facility] [address] [id number] [place] [address]- 9868 Oct, [facility] [place] [facility] [address] [id number] [address]- 7248 Sep, [facility] [place] [facility] [address] [id number] [address]- 9648 Sep, [facility] [place] [facility] [address] [id number] [address]- 7382 Sep, [facility] [place] [facility] [address] [id number] [address]- 6956 Sep, [facility] [place] [facility] [address] [id number] [address]- 9907 Aug, [facility] [place] [facility] [address] [id number] [place] [address]- 7136 Aug, [facility] [place] [facility] [address] [id number] [place] 0848 Jul, [facility] [place] [facility] [address] [id number] [place] [address]- 6249 Jul, [facility] [place] [facility] [address] [id number] [place] [address]- 9471 Jun, [facility] [place] [facility] [address] [id number] [place] 8028 Jun, [facility] [place] [facility] [address] [id number] [place] [address]- 7224 Jun, [facility] [place] [facility] [address] [id number] [place] [address]- 9958 Jun, [facility] [place] [facility] [address] [id number] [place] [address]- 4898 May, [facility] [place] [facility] [address] [id number] [place] [address]- 8951 May, [facility] [place] [facility] [address] [id number] [place] [address]- 2621 May, [facility] [place] [facility] [address] [id number] [place] [address]- 3840 May, [facility] [place] [facility] [address] [id number] [place] [address]- 4892 Apr, [facility] [place] [facility] [address] [id number] [place] [address]- 1942 Apr, [facility] [place] [facility] [address] [id number] [place] [address]- 9557 March, [facility] [place] [facility] [address] [id number] [place] [address]- 9761 March, [facility] [place] [facility] [address] [id number] [place] [address]- 3444 March, [facility] [place] [facility] [address] [id number] [place] [address]- 5464 March, [facility] [place] [facility] [address] [id number] [place] [address]- 9714 March, [facility] [place] [facility] [address] [id number] [place] [address]- 3632 March, [facility] [place] [facility] [address] [id number] [place] [address]- 7196 Feb, [facility] [place] [facility] [address] [id number] [place] [address]- 3161 Feb, [facility] [place] [facility] [address] [id number] [place] [address]- 3732 Feb, [facility] [place] [facility] [address] [id number] [place] [address]- 1198 Feb, [facility] [place] [facility] [address] [id number] [place] [address]- 6942 Feb, [facility] [place] [facility] [address] [id number] [place] [address]- 3163 Feb, [facility] [place] [facility] [address] [id number] [place] [address]- 1490 Feb, [facility] [place] [facility] [address] [id number] [place] [address]- 4183 Feb, [facility] [place] [facility] [address] [id number] [place] [address]- 9720 Jan, [facility] [place] [facility] [address] [id number] [place] [address]- 8191 Jan, [facility] [place] [facility] [address] [id number] [place] [address]- 2738 Jan, [facility] [place] [facility] [address] [id number] [place] [address]- 6331 Jan, [facility] [place] [facility] [address] [id number] [place] [address]- 4476 Jan, [facility] [place] [facility] [address] [id number] [place] [address]- 4212 Jan, [facility] [place] [facility] [address] [id number] [place] 5536 Jan, [facility] [place] [facility] [address] [id number] [place] [address]- 0752 Jan, [facility] [place] [facility] [address] [id number] [place] [address]- 8891 Jan, [facility] [place] [facility] [address] [id number] [place] [address]- 5933 Dec, [facility] [place] [facility] [address] [id number] [place] [address]- 3304 Dec, [facility] [place] [facility] [address] [id number] [place] [address]- 0878 Nov, [facility] [place] [facility] [address] [id number] [place] [address]- 6044 Nov, [facility] [place] [facility] [address] [id number] [place] [address]- 0063 Nov, [facility] [place] [facility] [address] [id number] [place] [address]- 8218 Nov, [facility] [place] [facility] [address] [id number] [place] [address]- 4070 Nov, [facility] [place] [facility] [address] [facility] [id number] [place] [address]- 0779 Nov, [facility] [place] [facility] [address] [facility] [id number] [place] [address]- 4713 Oct, [facility] [place] [facility] [address] [id number] [place] [address]- 6794 Oct, [facility] [place] [facility] [address] [id number] [place] [address]- 0510 Sep, [facility] [place] [facility] [address] [id number] [place] [address]- 3321 Sep, [facility] [place] [facility] [address] [id number] [place] [address]- 0239 Sep, [facility] [place] [facility] [address] [facility] [id number] [place] [address]- 9541 Sep, [facility] [place] [facility] [address] [id number] [place] [address]- 6813 08 Sep, 2013 [facility] [place] [facility] [address] [id number] [place] [address]- 0332 Sep, [facility] [place] [facility] [address] [id number] [place] [address]- 6066 Sep, [facility] [place] [facility] [address] [id number] [place] [address] Sep, [facility] [place] [facility] [address] [id number] [place] [address] Aug, [facility] [place] [facility] [address] [id number] [place] [address] Aug, [facility] [place] [facility] [address] [id number] [place] [address] Aug, [facility] [place] [facility] [address] [id number] [place] [address] Jul, [facility] [place] [facility] [address] [id number] [place] [address] Jul, [facility] [place] [facility] [address] [id number] [place] [address] Jul, [facility] [place] [facility] [address] [id number] [place] [address] Jun, [facility] [place] [facility] [address] [id number] [place] [address] Jun, [facility] [place] [facility] [address] [id number] [place] [address] Jun, [facility] [place] [facility] [address] [id number] [place] [address] Jun, [facility] [place] [facility] [address] [id number] [place] [address] Jun, [facility] [place] [facility] [address] [id number] [place] [address] Jun, [facility] [address] [id number] [place] [address] May, [facility] [place] [facility] [address] [id number] [place] [address] May, [facility] [place] [facility] [address] [id number] [place] [address] Apr, [facility] [place] [facility] [address] [id number] [place] [address] Apr, [facility] [place] [facility] [address] [id number] [place] [address] March, [facility] [place] [facility] [address] [id number] [place] [address] Feb, [facility] [place] [facility] [address] [id number] [place] [address] Feb, [facility] [place] [facility] [address] [id number] [place] [address] Feb, [facility] [place] [facility] [address] [id number] [place] [address] Feb, [facility] [place] [facility] [address] [id number] [place] [address] Jan, [facility] [place] [facility] [address] [id number] [place] [address] Jan, [facility] [place] [facility] [address] [id number] [place] [address] Jan, [facility] [place] [facility] [address] [id number] [place] [address] Jan, [facility] [place] [facility] [address] [id number] [place] [address] 05 Jan, 2013 [facility] [place] [facility] [address] [id number] [place] [address] Dec, [facility] [place] [facility] [address] [id number] [place] [address] Nov, [facility] [place] [facility] [address] [id number] [place] [address] Nov, [facility] [place] [facility] [address] [id number] [place] [address] Oct, [facility] [place] [facility] [address] [id number] [place] [address] Oct, [facility] [place] [facility] [address] [id number] [place] [address] Oct, [facility] [place] [facility] [address] [id number] [place] [address] Oct, [facility] [place] [facility] [address] [id number] [place] [address] Oct, [facility] [place] [facility] [address] [id number] [place] [address] Oct, [facility] [place] [facility] [address] [id number] [place] [address] Oct, [facility] [place] [facility] [address] [id number] [place] [address] Oct, [facility] [place] [facility] [address] [facility] [id number] [place] [address] Aug, [facility] [place] [facility] [address] [id number] [place] [address] Aug, [facility] [place] [facility] [address] [id number] [place] [address] Aug, [facility] [place] [facility] [address] [id number] [place] [address] Aug, [facility] [place] [facility] [address] [facility] [id number] [place] [address] Aug, [facility] [place] [facility] [address] [id number] [place] [address] Aug, [facility] [place] [facility] [address] [id number] [place] [address] Aug, [facility] [place] [facility] [address] [id number] [place] [address] Jul, [facility] [place] [facility] [address] [id number] [place] [address] Jul, [facility] [place] [facility] [address] [id number] [place] [address] Jul, [facility] [place] [facility] [address] [id number] [place] [address] Jul, [facility] [place] [facility] [address] [id number] [place] [address] Jul, [facility] [place] [facility] [address] [id number] [place] [address] Jun, [facility] [place] [facility] [address] [id number] [place] [address] Jun, [facility] [place] [facility] [address] [id number] [place] [address] Jun, [facility] [place] [facility] [address] [id number] [place] [address] May, [facility] [place] [facility] [address] [id number] [place] [address] May, [facility] [place] [facility] [address] [id number] [place] [address] May, [facility] [place] [facility] [address] [id number] [place] [address] May, [facility] [place] [facility] [address] [id number] [place] [address] May, [facility] [place] [facility] [address] [id number] [place] [address] May, [facility] [place] [facility] [address] [id number] [place] [address] May, [facility] [place] [facility] [address] [id number] [place] [address] Apr, [facility] [place] [facility] [address] [id number] [place] [address] Apr, [facility] [place] [facility] [address] [id number] [place] [address] March, [facility] [place] [facility] [address] [id number] [place] [address] Feb, [facility] [place] [facility] [address] [id number] [place] [address] 30 Jan, 2012 [facility] [place] [facility] [address] [id number] [place] [address] Jan, [facility] [place] [facility] [address] [id number] [place] [address] Jan, [facility] [place] [facility] [address] [id number] [place] [address] Jan, [facility] [place] [facility] [address] [id number] [place] [address] Jan, [facility] [place] [facility] [address] [id number] [place] [address] Jan, [facility] [place] [facility] [address] [id number] [place] [address] Jan, [facility] [place] [facility] [address] [id number] [place] [address] Jan, [facility] [place] [facility] [address] [id number] [place] [address]- [address] Jan, [facility] [place] [facility] [address] [id number] [place] [address] Jan, [facility] [place] [facility] [address] [id number] [place] [address] Dec, [facility] [place] [facility] [address] [facility] [id number] [address] Dec, [facility] [address] [facility] [id number] [place] [address] Dec, [facility] [address] [facility] [id number] [place] [address] Dec, [facility] [id number] [place] [address] Dec, [facility] [address] [facility] [id number] [place] [address] Dec, [facility] [id number] [place] [address], [place] [address] Dec, [facility] [id number] [place] [address] Dec, [facility] [id number] [address] Nov, [facility] [id number] [address] Nov, [facility] [id number] [address] Nov, [facility] [id number] [address] Oct, [facility] [id number] [address] Oct, [facility] [id number] [address] Oct, [facility] [id number] [address] [address] Oct, [facility] [address] [id number] [address] Sep, IMMUNIZATIONS No Known Immunizations SOCIAL HISTORY Never Assessed REASON FOR VISIT Refill request PLAN OF CARE VITAL SIGNS MEDICATIONS Medication Instructions Dosage Frequency Start Date End Date Duration Status Zofran 4 MG Orally 3 times a day 1 tablet 8h 10 Active RESULTS No Results PROCEDURES No Known [...]
--- OUTSIDE RECORDS SUMMARY | 2019-01-08 00:04 | XMS REPORT ---
Author Author NALINI GOMEZ Organization [facility] Address [address] [place] [address] Care Team Providers Care Rnp Name Role Phone NALINI GOMEZ Unavailable PROBLEMS Type Condition ICD9-CM Code UTZ47-AR Code Onset Dates Condition Status SNOMED Code Problem Hypothyroidism, unspecified E03.9 Active 42565631 Problem Other chronic pain G89.29 Active 43767715 Problem Hypercholesterolemia 272.0 Active 25502577 Problem Panlobular emphysema J43.1 Active 7612163 Problem Controlled type 2 diabetes mellitus without complication, without long -term current use of insulin E11.9 Active 333370345 Problem Type 2 diabetes mellitus without complications E11.9 Active [id number] ALLERGIES No Information ENCOUNTERS Encounter Location Date Diagnosis [facility] [id number] [place] [address] 91307- 2568 Apr, [facility] [address] 7[address]54- 9031 March, [facility] [id number] [place] [address] 23352- 6282 March, Viral gastroenteritis A08.4 [facility] [id number] [place] [address] 06419- 8005 Feb, Panlobular emphysema J43.1 [facility] [id number] [place] [address] 29744- 5289 Feb, Panlobular emphysema J43.1 [facility] [id number] [place] [address] 07970- 8927 Feb, [facility] [id number] [place] [address] 62469- 4149 Feb, [facility] [address] [place] [address]- 1894 Feb, Viral gastroenteritis A08.4 [facility] [id number] [place] [address] 97137- 7944 Feb, Head lice B85.0 [facility] [id number] [place] [address] 90367- 1973 Feb, Medicare annual wellness visit, initial Z00.00 ; Head lice B85.0 ; Tinea corporis B35.4 and Enlarged lymph node R59.9 [facility] [id number] [place] [address] 56965- 5636 Jan, Viral gastroenteritis A08.4 [facility] [id number] [place] [address] 10962- 1467 Jan, [facility] [id number] [place] [address] 61494- 3602 Dec, Controlled type 2 diabetes mellitus without complication, without long-term current use of insulin E11.9 [facility] [id number] [place] [address] 87144- 8031 Dec, [facility] [id number] [place] [address] 47328- 7289 Dec, Viral gastroenteritis A08.4 [facility] [id number] [place] [address] 05113- 9514 Nov, Viral gastroenteritis A08.4 [facility] [id number] [place] [address] 98095- 9789 Oct, Acute upper respiratory infection, unspecified J06.9 and Other viral agents as the cause of diseases classified elsewhere B97.89 [facility] [id number] [place] [address] 42818- 2998 Oct, Viral gastroenteritis A08.4 [facility] [id number] [place] [address] 86520- 7085 Oct, Controlled type 2 diabetes mellitus without complication, without long-term current use of insulin E11.9 ; Encounter for immunization Z23 and Acute pain of left foot M79.672 [facility] [address] 52375- 7715 Sep, Viral gastroenteritis A08.4 [facility] [address] 13447- 2530 Aug, Viral gastroenteritis A08.4 [facility] [address] 11916- 0110 Jul, Viral gastroenteritis A08.4 [facility] [address] 9[address]26 -7101 Jul, Acute nasopharyngitis (common cold) J00 [facility] [facility] [address] 29937- 0657 Jun, Viral gastroenteritis A08.4 [facility] [address] 21885- 9678 Jun, [facility] [address] 15074- 7931 Jun, Viral gastroenteritis A08.4 [facility] [address] 98883- 4722 May, Patellar tendinitis, left knee M76.52 [facility] [address] 64934- 5000 May, Viral gastroenteritis A08.4 [facility] [address] 45140- 2186 Apr, Viral gastroenteritis A08.4 and Hypothyroidism, unspecified E03.9 [facility] [address] 70710- 2708 15 Apr, 2017 Pain in left knee M25.562 ; Acute left-sided low back pain without sciatica M54.5 and Type 2 diabetes mellitus without complications E11.9 [facility] [address] [place] [address]- 6123 07 Apr, 2017 Viral gastroenteritis A08.4 [facility] [id number] [place] [address] 60338- 7246 March, Viral gastroenteritis A08.4 [facility] [address], [place] [address]9307 27 Feb, 2017 Acute pain of left knee M25.562 [facility] [id number] [place] [address] 88862- 9699 13 Feb, 2017 Viral gastroenteritis A08.4 [facility] [id number] [place] [address] 20474- 6246 16 Jan, 2017 Viral gastroenteritis A08.4 and Controlled type 2 diabetes mellitus without complication, without long-term current use of insulin E11.9 [facility] [id number] [place] [address] 77491- 1992 14 Jan, 2017 [facility] [id number] [place] [address] 19766- 5295 16 Dec, 2016 Other chronic pain G89.29 ; Pain in left knee M25.562 ; Controlled type 2 diabetes mellitus without complication, without long-term current use of insulin E11.9 and Acute cystitis with hematuria N30.01 [facility] [id number] [place] [address] 25770- 2925 Dec, [facility] [id number] [place] [address] 24250- 7559 06 Nov, 2016 Type 2 diabetes mellitus without complications E11.9 [facility] [id number] [place] [address] 63222- 1545 Nov, [facility] [id number] [place] [address] 34413- 5962 Oct, [facility] [id number] [place] [address] 66241- 6254 Sep, [facility] [id number] [place] [address] 60632- 9284 Aug, [facility] [id number] [place] [address] 10612- 0195 Aug, [facility] [id number] [place] [address] 6773 Jul, Controlled type 2 diabetes mellitus without complication, without long-term current use of insulin E11.9 ; Callus of foot L84 and URI, acute J06.9 [facility] [address] 17953- 8143 Jul, [facility] [address] 90180- 5768 Jun, Onychomycosis B35.1 and Nail ingrowing L60.0 [facility] [id number] [place] [address] 36750- 4019 Jun, [facility] [id number] [place] [address] 57386- 9929 Jun, Lumbar back pain with radiculopathy affecting left lower extremity M54.17 [facility] [id number] [place] [address] 05239- 9539 Jun, [facility] [id number] [place] [address] 53269- 7685 Jun, Other chronic pain G89.29 [facility] [address] 58373- 7652 Jun, Other chronic pain G89.29 [facility] [id number] [place] [address] 19076- 9576 Jun, Type 2 diabetes mellitus without complications E11.9 [facility] [id number] [place] [address] 31506- 4726 Jun, [facility] [id number] [place] [address] 29594- 1131 Jun, Onychomycosis B35.1 ; Callus L84 and Rash R21 [facility] [address], [place] [address]- 4899 May, [facility] [id number] [address]- 3580 May, [facility] [address], [place] [address]- 0221 May, Type 2 diabetes mellitus without complications E11.9 [facility] [id number] [place] [address] 50337- 6286 May, [facility] [id number] [place] [address] 79688- 1645 Apr, [facility] [id number] [place] [address] 57569- 7398 Apr, Type 2 diabetes mellitus without complications E11.9 ; Acquired hypothyroidism E03.9 ; Callus of foot L84 and Upper respiratory tract infection, unspecified type J06.9 [facility] [address], [place] [address]- 7110 March, [facility] [id number] [place] [address] 63628- 0563 Feb, [facility] [address], [place] [address]- 0033 Jan, Diabetes mellitus without mention of complication, type II or unspecified type, not stated as uncontrolled 250.00 [facility] [address], [place] [address]- 8133 Jan, [facility] [address], [place] [address]- 6454 Jan, Diabetes E11.9 and Hypothyroidism E03.9 [facility] [address], [place] [address]- 9756 29 Dec, 2015 Diarrhea R19.7 [facility] [id number] [place] [address] 99152- 2275 Dec, [facility] [address] [facility] [id number] [address]- 4732 Dec, Hypothyroidism, unspecified E03.9 [facility] [address], [place] [address] 2546 Dec, [facility] [address], [place] [address] 2546 Dec, Hypothyroidism, unspecified E03.9 [facility] [address] [place] [address], [place] [address] 2546 04 Dec, 2015 Diarrhea R19.7 [facility] [id number] [place] [address] 64390 2546 Dec, Diarrhea R19.7 [facility] [id number] [place] [address] 25445- 0474 Nov, [facility] [id number] [place] [address] 95991- 9651 Nov, [facility] [address], [place] [address]- 3220 Oct, [facility] [id number] [place] [address] 17116- 5601 Sep, Postnasal drip R09.82 [facility] [address], [place] [address]- 9859 Sep, [facility] [address], [place] [address]- 3533 Sep, [facility] [address], [place] [address]- 8656 Aug, [facility] [id number] [place] [address] 01416- 5714 08 Aug, 2015 [facility] [address], [place] [address]- 7646 Jul, Hypothyroidism 244.9 [facility] [address], [place] [address]- 0153 Jul, Diabetes mellitus without mention of complication, type II or unspecified type, not stated as uncontrolled 250.00 [facility] [address], [place] [address]- 8769 14 Jul, 2015 [facility] [address], [place] [address]- 4795 Jul, [facility] [id number] [place] [address] 76421- 2639 Jun, [facility] [id number] [place] [address] 52999- 4521 May, Other chronic pain 338.29 [facility] [id number] [place] [address] 45533- 0733 May, Other chronic pain 338.29 [facility] [id number] [place] [address] 35566- 0529 May, [facility] [id number] [place] [address] 68214- 4027 May, [facility] [id number] [place] [address] 46008- 7844 Apr, Rash 782.1 ; Hypercholesterolemia 272.0 and Hypothyroidism 244.9 [facility] [address], [place] [address]- 9012 Apr, [facility] [address], [place] [address]- 6105 Apr, [facility] [address], [place] [address]- 8752 March, [facility] [address], [place] [address]- 3035 Feb, [facility] [address], [place] [address]- 5041 Feb, [facility] [id number] [place] [address]- 8821 Jan, [facility] [place] [facility] [address] [id number] [place] [address]- 9536 Jan, [facility] [place] [facility] [address] [id number] [place] [address]- 2950 Jan, [facility] [place] [facility] [address] [id number] [place] [address]- 7219 Jan, [facility] [place] [facility] [address] [id number] [place] [address]- 8724 Jan, [facility] [place] [facility] [address] [id number] [place] [address]- 5255 Jan, [facility] [place] [facility] [address] [id number] [place] [address]- 6973 Jan, [facility] [place] [facility] [address] [id number] [place] [address]- 7977 Dec, [facility] [place] [facility] [address] [id number] [place] [address]- 4024 Dec, [facility] [place] [facility] [address] [id number] [place] [address]- 2416 Nov, [facility] [place] [facility] [address] [id number] [place] [address]- 8516 Nov, [facility] [place] [facility] [address] [id number] [place] [address]- 2576 Nov, [facility] [place] [facility] [address] [id number] [place] [address]- 7806 Nov, [facility] [place] [facility] [address] [id number] [place] [address]- 3655 Nov, [facility] [place] [facility] [address] [id number] [place] [address]- 8765 Nov, [facility] [place] [facility] [address] [id number] [place] 4973 Oct, [facility] [place] [facility] [address] [id number] [place] [address]- 1952 Oct, [facility] [place] [facility] [address] [id number] [place] [address]- 7557 Sep, [facility] [place] [facility] [address] [id number] [place] [address]- 1218 Sep, [facility] [place] [facility] [address] [id number] [place] [address]- 5413 Sep, [facility] [place] [facility] [address] [id number] [place] [address]- 9512 Sep, [facility] [place] [facility] [address] [id number] [place] [address]- 3666 Aug, [facility] [place] [facility] [address] [id number] [place] [address]- 3647 Aug, [facility] [place] [facility] [address] [id number] [place] [address]- 7932 Jul, [facility] [place] [facility] [address] [id number] [place] [address]- 1109 Jul, [facility] [place] [facility] [address] [id number] [place] [address]- 1317 Jun, [facility] [place] [facility] [address] [id number] [place] [address]- 5985 Jun, [facility] [place] [facility] [address] [id number] [place] [address]- 8035 Jun, [facility] [place] [facility] [address] [id number] [place] [address]- 2930 Jun, [facility] [place] [facility] [address] [id number] [place] [address]- 3483 May, [facility] [place] [facility] [address] [id number] [place] 0314 May, [facility] [place] [facility] [address] [id number], [place] [address]- 8838 May, [facility] [place] [facility] [address] [id number] [place] [address]- 3910 May, [facility] [place] [facility] [address] [id number] [place] [address]- 3693 Apr, [facility] [place] [facility] [address] [id number] [place] [address]- 0403 Apr, [facility] [place] [facility] [address] [id number] [place] [address]- 1957 March, [facility] [place] [facility] [address] [id number] [place] [address]- 2712 March, [facility] [place] [facility] [address] [id number] [place] [address]- 1317 March, [facility] [place] [facility] [address] [id number] [place] [address]- 2471 March, [facility] [place] [facility] [address] [id number] [place] [address]- 5419 March, [facility] [place] [facility] [address] [id number] [place] [address]- 2890 March, [facility] [place] [facility] [address] [id number] [place] [address]- 1203 Feb, [facility] [place] [facility] [address] [id number] [place] [address]- 6836 Feb, [facility] [place] [facility] [address] [id number] [place] [address]- 5717 Feb, [facility] [place] [facility] [address] [id number] [place] [address]- 4954 Feb, [facility] [place] [facility] [address] [id number] [place] [address]- 1169 Feb, [facility] [place] [facility] [address] [id number] [place] [address]- 6523 Feb, [facility] [place] [facility] [address] [id number] [place] [address]- 6629 Feb, [facility] [place] [facility] [address] [id number] [place] [address]- 3538 Feb, [facility] [place] [facility] [address] [id number] [place] [address]- 2156 Jan, [facility] [place] [facility] [address] [id number] [place] [address]- 8383 Jan, [facility] [place] [facility] [address] [id number] [place] [address]- 1798 Jan, [facility] [place] [facility] [address] [id number] [place] [address]- 0433 Jan, [facility] [place] [facility] [address] [id number] [place] [address]- 3538 Jan, [facility] [place] [facility] [address] [id number] [place] [address]- 0565 Jan, [facility] [place] [facility] [address] [id number] [place] [address]- 3872 Jan, [facility] [place] [facility] [address] [id number] [place] [address]- 0671 Jan, [facility] [place] [facility] [address] [id number] [place] [address]- 4290 Jan, [facility] [place] [facility] [address] [id number] [place] [address]- 9784 Dec, [facility] [place] [facility] [address] [id number] [place] [address]- 2074 Dec, [facility] [place] [facility] [address] [id number] [place] [address]- 1112 Nov, [facility] [place] [facility] [address] [id number] [place] 6061 Nov, [facility] [place] [facility] [address] [id number] [place] [address]- 9839 Nov, [facility] [place] [facility] [address] [id number] [place] [address]- 7317 Nov, [facility] [place] [facility] [address] [id number] [place] [address]- 5643 Nov, [facility] [place] [facility] [address] [id number] [place] [address]- 9383 Nov, [facility] [place] [facility] [address] [id number] [place] [address]- 5736 Oct, [facility] [place] [facility] [address] [id number] [place] [address]- 3718 Oct, [facility] [place] [facility] [address] [id number] [place] [address]- 9235 Sep, [facility] [place] [facility] [address] [id number] [place] [address]- 9858 Sep, [facility] [place] [facility] [address] [id number], [place] [address]- 2343 Sep, [facility] [place] [facility] [address] [id number] [place] [address]- 9929 Sep, [facility] [place] [facility] [address] [id number] [place] [address]- 6378 Sep, [facility] [place] [facility] [address] [id number], [place] [address]- 0184 Sep, [facility] [place] [facility] [address] [id number], [place] [address]- 5393 Sep, [facility] [place] [facility] [address] [id number] [place] [address]- 2279 Sep, [facility] [place] [facility] [address] [id number], [place] [address]- 7661 Aug, [facility] [place] [facility] [address] [id number], [place] [address]- 6322 Aug, [facility] [place] [facility] [address] [id number] [place] [address]- 3957 Aug, [facility] [address] [id number] [place] [address]- 0835 Jul, [facility] [address] [id number] [place] 7476 Jul, [facility] [address] [id number] [place] [address]- 2046 Jul, [facility] [address] [id number] [place] [address]- 8831 Jun, [facility] [address] [id number] [place] [address] Jun, [facility] [address] [id number] [place] [address] Jun, [facility] [address] [id number] [place] [address] Jun, [facility] [address] [id number] [place] [address] Jun, [facility] [address] [id number] [place] [address] Jun, [facility] [address] [id number] [place] [address] May, [facility] [address] [id number] [place] [address] May, [facility] [address] [id number] [place] [address] Apr, [facility] [place] [facility] [address] [id number] [place] [address] Apr, [facility] [place] [facility] [address] [id number] [place] [address] March, [facility] [address] [id number] [place] [address] Feb, [facility] [place] [facility] [address] [id number] [place] [address] 17 Feb, 2013 [facility] [address] [id number] [place] [address] 16 Feb, 2013 [facility] [address] [id number] [place] [address] Feb, [facility] [address] [id number] [place] [address] Jan, [facility] [address] [id number] [place] [address] Jan, [facility] [address] [id number] [place] [address] Jan, [facility] [address] [id number] [place] [address] Jan, [facility] [address] [id number] [place] [address] 05 Jan, 2013 [facility] [address] [id number] [place] [address] Dec, [facility] [address] [id number] [place] [address] Nov, [facility] [address] [id number] [place] [address] Nov, [facility] [address] [id number], [place] [address] Oct, [facility] [place] [facility] [address] [id number] [place] [address] Oct, [facility] [place] [facility] [address] [id number] [place] [address] Oct, [facility] [place] [facility] [address] [id number], [place] [address] Oct, [facility] [place] [facility] [address] [id number], [place] [address] Oct, [facility] [place] [facility] [address] [id number] [place] [address] Oct, [facility] [place] [facility] [address] [id number] [place] [address] Oct, [facility] [place] [facility] [address] [facility] [id number] [place] [address] Oct, [facility] [place] [facility] [address] [id number] [place] [address] Aug, [facility] [place] [facility] [address] [id number] [place] [address] 30 Aug, 2012 [facility] [place] [facility] [address] [id number] [place] [address] Aug, [facility] [place] [facility] [address] [facility] [id number] [place] [address] Aug, [facility] [place] [facility] [address] [facility] [id number] [place] [address] Aug, [facility] [place] [facility] [address] [facility] [id number], [place] [address] 19 Aug, 2012 [facility] [place] [facility] [address] [facility] [id number], [place] [address] 15 Aug, 2012 [facility] [place] [facility] [address] [facility] [id number], [place] [address] 27 Jul, 2012 [facility] [place] [facility] [address] [id number], [place] [address] 27 Jul, 2012 [facility] [facility] [address] [id number], [place] [address] 27 Jul, 2012 [facility] [place] [facility] [address] [facility] [id number], [place] [address] 27 Jul, 2011 [facility] [place] [facility] [address] [facility] [id number], [place] [address] 03 Jul, 2011 [facility] [place] [facility] [address] [id number] [place] [address] Jun, [facility] [place] [facility] [address] [id number] [place] [address] Jun, [facility] [place] [facility] [address] [id number] [place] [address] Jun, [facility] [place] [facility] [address] [id number] [place] [address] May, [facility] [place] [facility] [address] [id number] [place] [address] May, [facility] [place] [facility] [address] [id number] [place] [address] May, [facility] [place] [facility] [address] [id number] [place] [address] May, [facility] [place] [facility] [address] [id number] [place] [address] May, [facility] [place] [facility] [address] [id number] [place] [address] May, [facility] [place] [facility] [address] [id number] [place] [address] May, [facility] [facility] [address] [id number] [place] [address] Apr, [facility] [place] [facility] [address] [id number] [place] [address] Apr, [facility] [place] [facility] [address] [id number] [place] [address] March, [facility] [place] [facility] [address] [id number] [place] [address] Feb, [facility] [place] [facility] [address] [id number] [place] [address] Jan, [facility] [place] [facility] [address] [id number] [place] [address] 28 Jan, 2012 [facility] [place] [facility] [address] [id number] [place] [address] 28 Jan, 2012 [facility] [place] [facility] [address] [id number] [place] [address] 28 Jan, 2012 [facility] [place] [facility] [address] [id number] [place] [address] 28 Jan, 2012 [facility] [place] [facility] [address] [id number] [place] [address] Jan, [facility] [place] [facility] [address] [id number] [place] [address] Jan, [facility] [place] [facility] [address] [id number] [place] [address] Jan, [facility] [place] [facility] [address] [id number] [place] [address]- [address] Jan, [facility] [place] [facility] [address] [id number] [place] [address] Jan, [facility] [place] [facility] [address] [id number] [place] [address] Dec, [facility] [place] [facility] [address] [id number] [place] [address]- [address] Dec, [facility] [place] [facility] [address] [id number] [place] [address]157 Dec, [facility] [place] [facility] [address] [id number] [place] [address] Dec, [facility] [place] [facility] [address] [id number] [place] [address] Dec, [facility] [place] [facility] [address] [id number] [place] [address] 17 Dec, 2011 [facility] [place] [facility] [address] [id number] [place] [address] 10 Dec, 2011 [facility] [place] [address] [id number], [place] [address] Dec, [facility] [id number], [place] [address] Nov, [facility] [id number], [place] [address] Nov, [facility] [id number], [place] [address] Nov, [facility] [id number], [place] [address] Oct, [facility] [id number] [place] [address] Oct, [facility] [id number], [place] [address] Oct, [facility] [id number], [place] [address] Oct, [facility] [address] [id number], [place] [address] Sep, IMMUNIZATIONS No Known Immunizations SOCIAL HISTORY Never Assessed REASON FOR VISIT Controlled Med Refill 09/16/17 PLAN OF CARE VITAL SIGNS MEDICATIONS Medication Instructions Dosage Frequency Start Date End Date Duration Status [place] 10-325 MG Orally every 6 hrs 1 tablet as needed 6h Aug, 28 days Active RESULTS No Results PROCEDURES [...] intraocular lens prosthesis Hospitalization History admitted to [facility] for bronchitis then went into cardiac arrest and was resuscitated. She was in the hospital for 7 days. 2012 Hospitalization History surgeries
--- OUTSIDE RECORDS SUMMARY | 2019-01-08 00:05 | XMS REPORT ---
Author Author NALINI GOMEZ Organization [facility] Address [address] [place] [address] Care Team Providers Care Splitter Machine Name Role Phone NALINI GOMEZ Unavailable PROBLEMS Type Condition ICD9-CM Code ZNV48-ZN Code Onset Dates Condition Status SNOMED Code Problem Hypercholesterolemia 272.0 Active 92098027 Problem Panlobular emphysema J43.1 Active 8562850 Problem Hypothyroidism (acquired) E03.9 Active 87937613 Problem Acquired hypothyroidism E03.9 Active 457054192 Problem Controlled type 2 diabetes mellitus without complication, without long -term current use of insulin E11.9 Active 606575590 Problem Type 2 diabetes mellitus without complications E11.9 Active 586856084 Problem Hypothyroidism, unspecified E03.9 Active 07389805 Problem Other chronic pain G89.29 Active 61319055 ALLERGIES No Information ENCOUNTERS Encounter Location Date Diagnosis [place] [address] [address]- [address]15 May, [place] [address] 07910- 1359 May, [place] [address] 80074- 1396 May, Viral gastroenteritis A08.4 [place] [address] 96774- 4125 Apr, Acute diffuse otitis externa of left ear H60.312 and Hypothyroidism (acquired) E03.9 [place] [address] 47932- 7766 Apr, Viral gastroenteritis A08.4 and Acquired hypothyroidism E03.9 [place] [address] 95579- 8959 Apr, Type 2 diabetes mellitus without complications E11.9 and Panlobular emphysema J43.1 [facility] [address] [place] [id number] [place] [address] 24765- 3675 Apr, Viral gastroenteritis A08.4 [facility] [address] [place] [id number] [place] [address] 50711- 8126 March, [facility] [address] [place] [id number] [place] [address] 41355- 7304 March, Viral gastroenteritis A08.4 [facility] [address] [place] [id number] [place] [address] 97091- 9400 Feb, Panlobular emphysema J43.1 [place] [address] [place] [id number] [place] [address] 86832- 7174 Feb, Panlobular emphysema J43.1 [place] [address] [place] [id number] [place] [address] 00409- 2596 Feb, [facility] [address] [place] [id number] [place] [address] 52923- 4422 Feb, [place] [address] [place] [id number] [place] [address] 35789- 8985 Feb, Viral gastroenteritis A08.4 [place] [address] [place] [id number] [place] [address] 05647- 2540 Feb, Head lice B85.0 [place] [address] [place] [id number] [place] [address] 62221- 3463 Feb, Medicare annual wellness visit, initial Z00.00 ; Head lice B85.0 ; Tinea corporis B35.4 and Enlarged lymph node R59.9 [place] [address] [place] [id number] [place] [address] 92908- 6538 Jan, Viral gastroenteritis A08.4 [place] [address] [place] [id number] [place] [address] 35538- 5661 Jan, [facility] [address] [place] [id number] [place] [address] 33844- 6780 Dec, Controlled type 2 diabetes mellitus without complication, without long-term current use of insulin E11.9 [place] [address] [place] [id number] [place] [address] 23073- 9985 Dec, [place] [address] [place] [id number] [place] [address] 73519- 4192 Dec, Viral gastroenteritis A08.4 [place] [address] [place] [id number] [place] [address] 18163- 2063 Nov, Viral gastroenteritis A08.4 [place] [address] [place] [id number] [place] [address] 98273- 9092 Oct, Acute upper respiratory infection, unspecified J06.9 and Other viral agents as the cause of diseases classified elsewhere B97.89 [place] [address] [place] [id number] [place] [address] 64771- 5270 Oct, Viral gastroenteritis A08.4 [place] [address] [place] [id number] [place] [address] 97583- 1283 Oct, Controlled type 2 diabetes mellitus without complication, without long-term current use of insulin E11.9 ; Encounter for immunization Z23 and Acute pain of left foot M79.672 [place] [address] [place] [id number] [place] [address] 33732- 5181 Sep, Viral gastroenteritis A08.4 [place] [address] [place] [id number] [place] [address] 58873- 9078 Aug, Viral gastroenteritis A08.4 [place] [address] [place] [id number] [place] [address] 80529- 2385 Jul, Viral gastroenteritis A08.4 [facility] [address] [place] [id number] [place] [address] 81745 -8701 Jul, Acute nasopharyngitis (common cold) J00 [place] [address] [place] [id number] [place] [address] 54150- 2000 Jun, Viral gastroenteritis A08.4 [place] [address] [address]- 5816 Jun, [place] [address] [place] [id number] [place] [address] 94891- 0906 Jun, Viral gastroenteritis A08.4 [place] [address] [place] [id number] [place] [address] 39369- 1424 May, Patellar tendinitis, left knee M76.52 [place] [address] [place] [id number] [place] [address] 00280- 7104 May, Viral gastroenteritis A08.4 [place] [address] [place] [id number] [place] [address] 30701- 4569 Apr, Viral gastroenteritis A08.4 and Hypothyroidism, unspecified E03.9 [place] [address] [place] [id number] [place] [address] 67320- 8550 Apr, Pain in left knee M25.562 ; Acute left-sided low back pain without sciatica M54.5 and Type 2 diabetes mellitus without complications E11.9 [place] [address] [place] [id number] [place] [address] 16417- 0067 Apr, Viral gastroenteritis A08.4 [place] [address] [place] [id number] [place] [address] 33075- 3356 March, Viral gastroenteritis A08.4 [facility] [id number] [place] [address] 65166 -3720 Feb, Acute pain of left knee M25.562 [place] [address] [place] [address] 31721- 5880 Feb, Viral gastroenteritis A08.4 [place] [address] [place] [id number] [place] [address] 02244- 2888 Jan, Viral gastroenteritis A08.4 and Controlled type 2 diabetes mellitus without complication, without long-term current use of insulin E11.9 [place] [address] [place] [id number] [place] [address] 99268- 8612 14 Jan, 2017 [place] [address] [place] [address] 74865- 6787 16 Dec, 2016 Other chronic pain G89.29 ; Pain in left knee M25.562 ; Controlled type 2 diabetes mellitus without complication, without long-term current use of insulin E11.9 and Acute cystitis with hematuria N30.01 [place] [address] [place] [id number] [place] [address] 56450- 5297 Dec, [place] [address] [place] [id number] [place] [address] 52262- 2377 Nov, Type 2 diabetes mellitus without complications E11.9 [place] [address] [place] [id number] [place] [address] 55056- 9700 Nov, [place] [address] [place] [id number] [place] [address] 18380- 6834 Oct, [place] [address] [place] [id number] [place] [address] 83217- 0055 Sep, [place] [address] [place] [id number] [place] [address] 48650- 8204 Aug, [place] [address] [place] [id number] [place] [address] 70987- 9213 Aug, [place] [address] [place] [id number] [place] [address] 04815- 3528 Jul, Controlled type 2 diabetes mellitus without complication, without long-term current use of insulin E11.9 ; Callus of foot L84 and URI, acute J06.9 [place] [address] [place] [address] 41183- 8497 13 Jul, 2016 [place] [address] [place] [id number] [place] [address] 83630- 4114 Jun, Onychomycosis B35.1 and Nail ingrowing L60.0 [place] [address] [place] [id number] [place] [address] 59621- 6495 Jun, [facility] [address] [place] [address] 00872- 0921 Jun, Lumbar back pain with radiculopathy affecting left lower extremity M54.17 [facility] [address] [place] [id number] [place] [address] 28884- 3297 Jun, [facility] [address] [place] [id number] [place] [address] 34013- 2005 Jun, Other chronic pain G89.29 [facility] [address] [place] [id number] [place] [address] 84346- 6957 Jun, Other chronic pain G89.29 [facility] [address] [place] [id number] [place] [address] 22623- 9799 Jun, Type 2 diabetes mellitus without complications E11.9 [facility] [address] [place] [id number] [place] [address] 29780- 0222 Jun, [facility] [address] [place] [id number] [place] [address] 47094- 5875 Jun, Onychomycosis B35.1 ; Callus L84 and Rash R21 [facility] [address] [place] [id number] [place] [address] 10495- 4225 May, [facility] [address] [place] [id number] [place] [address] 52875- 1200 May, [facility] [address] [place] [id number] [place] [address] 10132- 5146 May, Type 2 diabetes mellitus without complications E11.9 [facility] [address] [place] [id number] [place] [address] 09922- 0220 May, [facility] [address] [place] [id number] [place] [address] 71988- 1831 Apr, [facility] [address] [place] [id number] [place] [address] 77275- 5349 Apr, Type 2 diabetes mellitus without complications E11.9 ; Acquired hypothyroidism E03.9 ; Callus of foot L84 and Upper respiratory tract infection, unspecified type J06.9 [facility] [address] [place] [id number] [place] [address] 43076- 6809 March, [facility] [address] [place] [id number] [place] [address] 84010- 6216 Feb, [facility] [address] [place] [id number] [place] [address] 80325- 3400 Jan, Diabetes mellitus without mention of complication, type II or unspecified type, not stated as uncontrolled 250.00 [facility] [address] [place] [id number] [place] [address] 33838- 1619 Jan, [facility] [address] 67094- 0214 Jan, Diabetes E11.9 and Hypothyroidism E03.9 [facility] [address] [place] [id number] [place] [address] 56271- 5244 Dec, Diarrhea R19.7 [facility] [address] [place] [id number] [place] [address] 10587- 8506 Dec, [facility] [address] [place] [id number] [place] [address] 57773- 3208 Dec, Hypothyroidism, unspecified E03.9 [facility] [address] [place] [id number] [place] [address] 47179- 5366 Dec, [facility] [address] [place] [id number] [place] [address] 83572- 1189 Dec, Hypothyroidism, unspecified E03.9 [facility] [address] [place] [id number] [place] [address] 78953- 5404 04 Dec, 2015 Diarrhea R19.7 [facility] [address] [place] [id number] [place] [address] 96562- 1231 01 Dec, 2015 Diarrhea R19.7 [facility] [address] [place] [id number] [place] [address] 98512- 9691 Nov, [facility] [address] [place] [id number] [address]- 4583 Nov, [facility] [address] [place] [address] 43638- 7246 Oct, [facility] [address] [address]- 6272 Sep, Postnasal drip R09.82 [facility] [address] [place] [id number] [place] [address] 72700- 8780 Sep, [facility] [address] [place] [id number] [place] [address] 37710- 4475 Sep, [facility] [address] [place] [id number] [place] [address] 47499- 9204 Aug, [facility] [address] [place] [address] 920302- 5670 Aug, [facility] [address] [address]- 5664 Jul, Hypothyroidism 244.9 [facility] [address] [place] [id number] [place] [address] 39127- 5120 Jul, Diabetes mellitus without mention of complication, type II or unspecified type, not stated as uncontrolled 250.00 [facility] [address] [address]- 5652 Jul, [facility] [address] [address]- 7293 Jul, [facility] [address] [address]- 8379 Jun, [facility] [address] [place] [id number] [place] [address] 52241- 2453 May, Other chronic pain 338.29 [facility] [address] 9310 May, Other chronic pain 338.29 [facility] [address] [facility] [id number] [address]- 3496 May, [facility] [address] [place] [id number] [place] [address] 02135- 8185 May, [facility] [address] [address]- 7344 Apr, Rash 782.1 ; Hypercholesterolemia 272.0 and Hypothyroidism 244.9 [facility] [address] [facility] [id number], [place] [address]- 2842 Apr, [facility] [address] [place] [id number] [place] [address] 91705- 0830 Apr, [facility] [address] [place] [id number] [address]- 0129 March, [facility] [address] [place] [id number] [place] [address] 17026- 7733 Feb, [facility] [address], [place] [address]- 0929 Feb, [facility] [address], [place] [address]- 6442 Jan, [facility] [address] [address]- 6323 Jan, [facility] [address] [address]- 8417 Jan, [facility] [address], [place] [address]- 1800 Jan, [facility] [address] [place] [id number] [address]- 5698 Jan, [facility] [address], [place] [address]- 5358 Jan, [facility] [address] [place] [id number] [address]- 7176 Jan, [facility] [place] [facility] [address] [id number] [place] [address]- 4297 16 Dec, 2014 [facility] [place] [facility] [address] [id number] [place] [address]- 7181 Dec, [facility] [place] [facility] [address] [id number] [place] [address]- 9261 Nov, [facility] [place] [facility] [address] [id number] [place] [address]- 7319 Nov, [facility] [place] [facility] [address] [id number] [place] [address]- 1821 Nov, [facility] [place] [facility] [address] [id number] [place] [address]- 1984 Nov, [facility] [place] [facility] [address] [id number] [place] [address]- 3423 Nov, [facility] [place] [facility] [address] [id number] [place] [address]- 0991 Nov, [facility] [place] [facility] [address] [id number] [place] [address]- 7224 Oct, [facility] [place] [facility] [address] [id number] [place] [address]- 2328 Oct, [facility] [place] [facility] [address] [id number] [place] [address]- 5688 Sep, [facility] [place] [facility] [address] [id number] [place] [address]- 2169 Sep, [facility] [place] [facility] [address] [id number] [place] [address]- 5499 Sep, [facility] [place] [facility] [address] [id number] [place] [address]- 8386 Sep, [facility] [place] [facility] [address] [id number] [place] [address]- 8631 Aug, [facility] [place] [facility] [address] [id number] [place] [address]- 1136 Aug, [facility] [place] [facility] [address] [id number] [place] 1976 Jul, [facility] [place] [facility] [address] [id number] [place] [address]- 8523 Jul, [facility] [place] [facility] [address] [id number] [place] 6546 Jun, [facility] [place] [facility] [address] [id number] [place] [address]- 8274 Jun, [facility] [place] [facility] [address] [id number] [place] [address]- 0446 Jun, [facility] [place] [facility] [address] [id number] [place] [address]- 9783 Jun, [facility] [place] [facility] [address] [id number] [place] [address]- 3423 May, [facility] [place] [facility] [address] [id number] [place] [address]- 9904 May, [facility] [place] [facility] [address] [id number] [place] [address]- 0941 May, [facility] [place] [facility] [address] [id number] [place] [address]- 1303 May, [facility] [place] [facility] [address] [id number] [place] [address]- 5173 Apr, [facility] [place] [facility] [address] [id number] [place] [address]- 7353 Apr, [facility] [place] [facility] [address] [id number] [place] [address]- 2497 March, [facility] [place] [facility] [address] [id number] [place] [address]- 2227 March, [facility] [place] [facility] [address] [id number] [place] [address]- 6874 March, [facility] [place] [facility] [address] [id number] [place] [address]- 9786 March, [facility] [address] [id number] [place] [address]- 7123 March, [facility] [place] [facility] [address] [id number] [place] [address]- 2816 March, [facility] [address] [id number] [place] [address]- 1224 Feb, [facility] [place] [facility] [address] [id number] [place] [address]- 8760 Feb, [facility] [address] [id number] [place] [address]- 7867 Feb, [facility] [address] [id number] [place] [address]- 1959 Feb, [facility] [place] [facility] [address] [id number] [place] [address]- 0239 Feb, [facility] [address] [id number] [place] [address]- 7555 Feb, [facility] [place] [facility] [address] [id number] [place] [address]- 9645 Feb, [facility] [address] [id number] [place] [address]- 9219 Feb, [facility] [place] [facility] [address] [id number] [place] [address]- 1540 Jan, [facility] [place] [facility] [address] [id number] [place] [address]- 8879 Jan, [facility] [place] [facility] [address] [id number] [place] [address]- 0803 Jan, [facility] [place] [facility] [address] [id number] [place] [address]- 3001 Jan, [facility] [place] [facility] [address] [id number] [place] [address]- 5778 Jan, [facility] [place] [facility] [address] [id number] [place] [address]- 9856 13 Jan, 2014 [facility] [place] [facility] [address] [id number] [place] [address]- 0678 Jan, [facility] [place] [facility] [address] [id number] [place] [address]- 3644 Jan, [facility] [place] [facility] [address] [id number] [place] [address]- 2327 Jan, [facility] [place] [facility] [address] [id number] [place] [address]- 4452 Dec, [facility] [place] [facility] [address] [id number] [place] [address]- 4571 Dec, [facility] [place] [facility] [address] [id number] [place] [address]- 4492 Nov, [facility] [place] [facility] [address] [id number] [place] [address]- 4586 Nov, [facility] [place] [facility] [address] [id number] [place] [address]- 1713 Nov, [facility] [place] [facility] [address] [id number] [place] [address]- 2359 Nov, [facility] [place] [facility] [address] [id number] [place] [address]- 4445 Nov, [facility] [place] [facility] [address] [id number] [place] [address]- 6390 Nov, [facility] [place] [facility] [address] [id number] [place] [address]- 1917 Oct, [facility] [place] [facility] [address] [id number] [place] [address] Oct, [facility] [place] [facility] [address] [id number] [place] [address] Sep, [facility] [place] [facility] [address] [id number] [place] [address] Sep, [facility] [place] [facility] [address] [id number] [place] [address] Sep, [facility] [place] [facility] [address] [id number] [place] [address] Sep, [facility] [place] [facility] [address] [id number] [place] [address] Sep, [facility] [place] [facility] [address] [id number] [place] [address] Sep, [facility] [place] [facility] [address] [id number] [place] [address] Sep, [facility] [place] [facility] [address] [id number] [place] [address] Sep, [facility] [place] [facility] [address] [id number] [place] [address] Aug, [facility] [place] [facility] [address] [id number] [place] [address] Aug, [facility] [place] [facility] [address] [id number] [place] [address] Aug, [facility] [place] [facility] [address] [id number] [place] [address] Jul, [facility] [place] [facility] [address] [id number] [place] [address] Jul, [facility] [place] [facility] [address] [id number], [place] [address] Jul, [facility] [place] [facility] [address] [id number] [place] [address] Jun, [facility] [place] [facility] [address] [id number] [place] [address] Jun, [facility] [place] [facility] [address] [id number], [place] [address] Jun, [facility] [place] [facility] [address] [id number] [place] [address] Jun, [facility] [place] [facility] [address] [id number] [place] [address] Jun, [facility] [place] [facility] [address] [id number] [place] [address] Jun, [facility] [place] [facility] [address] [id number] [place] [address] May, [facility] [place] [facility] [address] [id number] [place] [address] May, [facility] [place] [facility] [address] [id number] [place] [address] Apr, [facility] [place] [facility] [address] [id number] [place] [address] Apr, [facility] [place] [facility] [address] [id number] [place] [address] March, [facility] [address] [id number] [place] [address] Feb, [facility] [place] [facility] [address] [id number] [place] [address] Feb, [facility] [place] [facility] [address] [id number] [place] [address] Feb, [facility] [place] [facility] [address] [id number] [place] [address] Feb, [facility] [place] [facility] [address] [id number] [place] [address] Jan, [facility] [place] [facility] [address] [id number] [place] [address] Jan, [facility] [place] [facility] [address] [id number] [place] [address] Jan, [facility] [place] [facility] [address] [id number] [place] [address] Jan, [facility] [place] [facility] [address] [id number] [place] [address] Jan, [facility] [place] [facility] [address] [id number] [place] [address] Dec, [facility] [place] [facility] [address] [facility] [id number] [place] [address] Nov, [facility] [place] [facility] [address] [id number] [place] [address] Nov, [facility] [place] [facility] [address] [id number] [place] [address]- [address] Oct, [facility] [place] [facility] [address] [id number] [place] [address] Oct, [facility] [place] [facility] [address] [facility] [id number] [place] [address] Oct, [facility] [place] [facility] [address] [id number], [place] [address] Oct, [facility] [place] [facility] [address] [address] [id number] [place] [address] Oct, [facility] [place] [facility] [address] [facility] [id number] [place] [address] Oct, [facility] [place] [facility] [address] [id number], [place] [address] Oct, [facility] [place] [facility] [address] [id number], [place] [address] Oct, [facility] [place] [facility] [address] [id number] [place] [address] Aug, [facility] [place] [facility] [address] [facility] [id number], [place] [address] Aug, [facility] [place] [facility] [address] [facility] [id number], [place] [address] Aug, [facility] [place] [facility] [address] [id number] [place] [address] 26 Aug, 2012 [facility] [address] [id number] [place] [address] 19 Aug, 2012 [facility] [place] [facility] [address] [id number] [place] [address] 19 Aug, 2012 [facility] [address] [id number] [place] [address] 15 Aug, 2012 [facility] [place] [facility] [address] [id number] [place] [address] 27 Jul, 2012 [facility] [place] [facility] [address] [id number] [place] [address] 27 Jul, 2012 [facility] [place] [facility] [address] [id number] [place] [address] 27 Jul, 2012 [facility] [place] [facility] [address] [id number] [place] [address] 27 Jul, 2012 [facility] [address] [id number] [place] [address] 03 Jul, 2012 [facility] [place] [facility] [address] [id number] [place] [address] 28 Jun, 2012 [facility] [place] [facility] [address] [id number] [place] [address] Jun, [facility] [place] [facility] [address] [id number] [place] [address] Jun, [facility] [place] [facility] [address] [id number] [place] [address] May, [facility] [place] [facility] [address] [id number] [place] [address] May, [facility] [place] [facility] [address] [id number] [place] [address] May, [facility] [place] [facility] [address] [id number] [place] [address] May, [facility] [place] [facility] [address] [id number] [place] [address] 23 May, 2012 [facility] [place] [facility] [address] [id number] [place] [address] May, [facility] [place] [facility] [address] [id number] [place] [address] May, [facility] [place] [facility] [address] [id number] [place] [address] Apr, [facility] [place] [facility] [address] [id number] [place] [address] Apr, [facility] [place] [facility] [address] [id number] [place] [address] March, [facility] [place] [facility] [address] [id number] [place] [address] Feb, [facility] [place] [facility] [address] [id number] [place] [address] 30 Jan, 2012 [facility] [place] [facility] [address] [id number] [place] [address] Jan, [facility] [place] [facility] [address] [id number] [place] [address] Jan, [facility] [place] [facility] [address] [id number] [place] [address] Jan, [facility] [place] [facility] [address] [id number] [place] [address] Jan, [facility] [place] [facility] [address] [id number] [place] [address] Jan, [facility] [place] [facility] [address] [id number] [place] [address] Jan, [facility] [place] [facility] [address] [id number] [place] [address] Jan, [facility] [place] [facility] [address] [id number] [place] [address] Jan, [facility] [address] [id number] [place] [address] Jan, [facility] [place] [facility] [address] [id number] [place] [address] Dec, [facility] [place] [facility] [address] [id number] [place] [address] Dec, [facility] [place] [facility] [address] [id number] [place] [address] Dec, [facility] [place] [facility] [address] [id number] [place] [address] Dec, [facility] [place] [facility] [address] [id number] [place] [address] Dec, [facility] [address] [id number] [place] [address] Dec, [facility] [address] [id number] [place] [address] Dec, [facility] [address] [id number] [place] [address] Dec, [facility] [address] [id number] [place] [address] Nov, [facility] [place] [facility] [address] [id number] [place] [address] Nov, [facility] [place] [facility] [address] [id number] [place] [address] Nov, [facility] [place] [facility] [address] [id number] [place] [address] Oct, [facility] [place] [facility] [address] [id number] [place] [address] Oct, [facility] [place] [facility] [address] [id number] [place] [address]- [address] Oct, [facility] [address] [facility] [id number] [place] [address] Oct, [facility] [address] [facility] [id number] [place] [address] Sep, IMMUNIZATIONS No Known Immunizations SOCIAL HISTORY Never Assessed REASON FOR VISIT Rx request PLAN OF CARE VITAL SIGNS MEDICATIONS Medication Instructions Dosage Frequency Start Date End Date Duration Status Blood Glucose Monitor System w/Device subcutaneously 2 times a day test blood sugar 12h Active Blood Glucose Test - In Vitro 2 times a day test blood sugar 12h Active RESULTS No Results PROCEDURES No Known [...]
--- OUTSIDE RECORDS SUMMARY | 2019-01-08 00:06 | XMS REPORT ---
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 Role Phone SHAINA CAN Unavailable PROBLEMS Type Condition ICD9-CM Code SKU48-CF Code Onset Dates Condition Status SNOMED Code Problem Hypothyroidism, unspecified E03.9 Active 53434551 Problem Other chronic pain G89.29 Active 21462304 Problem Hypercholesterolemia 272.0 Active 18279960 Problem Controlled type 2 diabetes mellitus without complication, without long -term current use of insulin E11.9 Active 697246536 Problem Type 2 diabetes mellitus without complications E11.9 Active [id number] ALLERGIES No Information ENCOUNTERS Encounter Location Date Diagnosis [place] [address] [address]- 2847 Feb, [place] [address] 41650- 6220 Feb, [place] [address] 86878- 3276 Feb, Viral gastroenteritis A08.4 [place] [address] [place] [id number] [place] [address] 54776- 3361 Feb, Head lice B85.0 [place] [address] 76344- 3778 Feb, Medicare annual wellness visit, initial Z00.00 ; Head lice B85.0 ; Tinea corporis B35.4 and Enlarged lymph node R59.9 [place] [address] [place] [id number] [place] [address] 83786- 8641 Jan, Viral gastroenteritis A08.4 [place] [address] 64221- 3454 Jan, [place] [id number] [place] [address] 16445- 2057 Dec, Controlled type 2 diabetes mellitus without complication, without long-term current use of insulin E11.9 [place] [address] [place] [id number] [place] [address] 88733- 8075 Dec, [place] [address] [place] [id number] [place] [address] 26859- 3119 Dec, Viral gastroenteritis A08.4 [place] [address] [place] [id number] [place] [address] 08641- 7012 Nov, Viral gastroenteritis A08.4 [place] [address] [place] [id number] [place] [address] 33428- 9011 Oct, Acute upper respiratory infection, unspecified J06.9 and Other viral agents as the cause of diseases classified elsewhere B97.89 [place] [address] [place] [id number] [place] [address] 37036- 2103 Oct, Viral gastroenteritis A08.4 [place] [address] [place] [id number] [place] [address] 86274- 1961 Oct, Controlled type 2 diabetes mellitus without complication, without long-term current use of insulin E11.9 ; Encounter for immunization Z23 and Acute pain of left foot M79.672 [place] [address] [place] [id number] [place] [address] 38757- 3317 Sep, Viral gastroenteritis A08.4 [place] [address] [place] [id number] [place] [address] 19625- 5059 Aug, Viral gastroenteritis A08.4 [place] [address] [place] [id number] [place] [address] 15404- 4478 Jul, Viral gastroenteritis A08.4 [facility] [id number] [place] [address] 48297 -1393 12 Jul, 2017 Acute nasopharyngitis (common cold) J00 [place] [address] [place] [id number] [address]- 2576 Jun, Viral gastroenteritis A08.4 [place] [address] [place] [id number] [place] [address] 25977- 2235 Jun, [place] [address] [place] [id number] [place] [address] 73504- 6442 Jun, Viral gastroenteritis A08.4 [place] [address] [place] [id number] [place] [address] 07446- 6812 May, Patellar tendinitis, left knee M76.52 [place] [address] [place] [id number] [place] [address] 65519- 3408 May, Viral gastroenteritis A08.4 [place] [address] [place] [id number] [place] [address] 49898- 9481 Apr, Viral gastroenteritis A08.4 and Hypothyroidism, unspecified E03.9 [place] [address] [place] [id number] [place] [address] 78918- 4914 Apr, Pain in left knee M25.562 ; Acute left-sided low back pain without sciatica M54.5 and Type 2 diabetes mellitus without complications E11.9 [place] [id number] [place] [address] 38727- 3042 Apr, Viral gastroenteritis A08.4 [place] [address] [place] [id number] [place] [address] 39198- 4501 March, Viral gastroenteritis A08.4 [facility] [id number] [place] [address] 81729 -6802 Feb, Acute pain of left knee M25.562 [place] [address] [place] [id number] [place] [address] 98084- 7941 Feb, Viral gastroenteritis A08.4 [place] [address] [place] [id number] [place] [address] 68872- 9818 Jan, Viral gastroenteritis A08.4 and Controlled type 2 diabetes mellitus without complication, without long-term current use of insulin E11.9 [facility] [id number] [place] [address] 85495- 4076 14 Jan, 2017 [facility] [address] [place] [id number] [place] [address] 95204- 4079 16 Dec, 2016 Other chronic pain G89.29 ; Pain in left knee M25.562 ; Controlled type 2 diabetes mellitus without complication, without long-term current use of insulin E11.9 and Acute cystitis with hematuria N30.01 [facility] [address] [place] [id number] [place] [address] 68097- 9542 Dec, [place] [address] [place] [id number] [place] [address] 36898- 5380 Nov, Type 2 diabetes mellitus without complications E11.9 [place] [address] [place] [id number] [place] [address] 20154- 6953 Nov, [place] [address] [place] [id number] [place] [address] 06498- 3176 Oct, [facility] [address] [place] [id number] [place] [address] 46366- 7504 Sep, [place] [address] [place] [id number] [place] [address] 31184- 5669 Aug, [place] [address] [place] [id number] [place] [address] 26427- 6146 Aug, [place] [address] [place] [id number] [place] [address] 23138- 6024 Jul, Controlled type 2 diabetes mellitus without complication, without long-term current use of insulin E11.9 ; Callus of foot L84 and URI, acute J06.9 [place] [address] [place] [id number] [place] [address] 38121- 8991 13 Jul, 2016 [facility] [address] [place] [id number] [place] [address] 09715- 6223 Jun, Onychomycosis B35.1 and Nail ingrowing L60.0 [facility] [address] [place] [id number] [place] [address] 76895- 3566 15 Jun, 2016 [facility] [address] [place] [id number] [place] [address] 14996- 9647 Jun, Lumbar back pain with radiculopathy affecting left lower extremity M54.17 [facility] [address] [place] [id number] [place] [address] 68139- 9335 Jun, [facility] [address] [place] [id number] [place] [address] 33472- 0359 Jun, Other chronic pain G89.29 [facility] [address] 93800- 6150 Jun, Other chronic pain G89.29 [facility] [address] [place] [id number] [place] [address] 04565- 1210 Jun, Type 2 diabetes mellitus without complications E11.9 [facility] [address] [place] [id number] [place] [address] 36227- 3492 Jun, [facility] [address] [place] [id number] [place] [address] 40984- 1481 Jun, Onychomycosis B35.1 ; Callus L84 and Rash R21 [facility] [address] [place] [id number] [place] [address] 27064- 2590 May, [facility] [address] [place] [id number] [place] [address] 65306 2545 May, [facility] [id number] [place] [address] 54318 2548 May, Type 2 diabetes mellitus without complications E11.9 [facility] [address] [place] [id number] [place] [address] 55221 2546 May, [facility] [address] [place] [id number] [place] [address] 73929- 1094 Apr, [facility] [address] [place] [id number] [place] [address] 90759- 6856 Apr, Type 2 diabetes mellitus without complications E11.9 ; Acquired hypothyroidism E03.9 ; Callus of foot L84 and Upper respiratory tract infection, unspecified type J06.9 [facility] [address] [place] [id number] [place] [address] 37984- 4721 March, [facility] [address] [place] [id number] [place] [address] 76526- 9610 Feb, [facility] [address] 47662- 8811 Jan, Diabetes mellitus without mention of complication, type II or unspecified type, not stated as uncontrolled 250.00 [place] [address] [place] [id number] [place] [address] 30434- 1478 Jan, [place] [address] [place] [id number] [place] [address] 13524- 4395 Jan, Diabetes E11.9 and Hypothyroidism E03.9 [place] [address] [place] [id number] [place] [address] 35100- 1659 Dec, Diarrhea R19.7 [place] [address] [place] [id number] [place] [address] 82981- 4986 Dec, [facility] [address] [place] [id number] [place] [address] 65776- 1405 Dec, Hypothyroidism, unspecified E03.9 [facility] [address] [place] [id number] [place] [address] 10483- 7254 Dec, [facility] [address] [place] [id number] [place] [address] 50403- 7587 Dec, Hypothyroidism, unspecified E03.9 [facility] [address] [place] [id number] [place] [address] 02358- 9137 Dec, Diarrhea R19.7 [facility] [address] [place] [id number] [place] [address] 06536- 8024 Dec, Diarrhea R19.7 [facility] [address] [address]- 9688 Nov, [facility] [id number] [place] [address] 85131- 9776 Nov, [facility] [address] 7043 Oct, [facility] [address] [place] [id number] [place] [address] 24721- 9852 Sep, Postnasal drip R09.82 [facility] [address] [address]- 0490 Sep, [facility] [address] [place] [id number] [place] [address] 20155- 7823 Sep, [facility] [address] [place] [id number] [place] [address] 10870- 3273 Aug, [facility] [address] [address]- 8421 Aug, [facility] [id number] [place] [address] 89070- 6863 Jul, Hypothyroidism 244.9 [facility] [address] [address]- 2410 Jul, Diabetes mellitus without mention of complication, type II or unspecified type, not stated as uncontrolled 250.00 [facility] [address] [address]- 6180 Jul, [facility] [address] [address]- 0273 Jul, [facility] [address] [address]- 3025 Jun, [facility] [address] [address]- 2337 May, Other chronic pain 338.29 [facility] [address] [place] [id number] [address]- 4475 10 May, 2015 Other chronic pain 338.29 [facility] [address] [address]- 3429 09 May, 2015 [facility] [address] [place] [id number] [address]- 5935 May, [facility] [address] [place] [id number] [place] [address] 87380- 8346 Apr, Rash 782.1 ; Hypercholesterolemia 272.0 and Hypothyroidism 244.9 [facility] [address] [place] [id number] [place] [address] 32187- 3391 Apr, [facility] [address] [place] [id number] [place] [address] 37856- 2798 Apr, [facility] [address] [place] [id number] [address]- 4386 March, [facility] [address] [address]- 0539 Feb, [facility] [address] [address]- 9749 Feb, [facility] [address] [address]- 5356 Jan, [facility] [address] [address]- 2250 Jan, [facility] [address] [address]- 0369 Jan, [facility] [address] [address]- 8268 Jan, [facility] [address] [address]- 3184 Jan, [facility] [address] [place] [id number] 4578 Jan, [facility] [address] [place] [id number] [place] [address]- 6161 Jan, [facility] [address] [id number] [place] [address]- 8327 Dec, [facility] [place] [facility] [address] [id number] [place] 8071 Dec, [facility] [place] [facility] [address] [id number] [place] [address]- 2672 Nov, [facility] [place] [facility] [address] [id number] [place] [address]- 9227 Nov, [facility] [place] [facility] [address] [id number] [place] [address]- 9343 Nov, [facility] [place] [facility] [address] [id number] [place] [address]- 8666 Nov, [facility] [place] [facility] [address] [id number] [place] [address]- 0302 Nov, [facility] [place] [facility] [address] [id number] [place] [address]- 4080 Nov, [facility] [place] [facility] [address] [id number] [place] [address]- 7307 Oct, [facility] [place] [facility] [address] [id number] [place] [address]- 6142 Oct, [facility] [place] [facility] [address] [id number] [place] [address]- 9607 Sep, [facility] [place] [facility] [address] [id number] [place] [address]- 8920 Sep, [facility] [place] [facility] [address] [id number] [place] [address]- 9663 Sep, [facility] [place] [facility] [address] [id number] [place] [address]- 0363 Sep, [facility] [place] [facility] [address] [id number] [place] [address]- 7537 Aug, [facility] [place] [facility] [address] [id number] [place] [address]- 8988 Aug, [facility] [place] [facility] [address] [id number] [place] [address]- 6184 Jul, [facility] [place] [facility] [address] [id number] [place] [address]- 8414 Jul, [facility] [place] [facility] [address] [id number] [place] [address]- 6644 Jun, [facility] [place] [facility] [address] [id number] [place] [address]- 7183 Jun, [facility] [place] [facility] [address] [id number] [place] [address]- 6692 Jun, [facility] [place] [facility] [address] [id number] [place] [address]- 3312 Jun, [facility] [place] [facility] [address] [id number] [place] [address]- 2923 May, [facility] [place] [facility] [address] [id number] [place] [address]- 3222 May, [facility] [place] [facility] [address] [id number] [place] [address]- 4670 May, [facility] [place] [facility] [address] [id number] [place] [address]- 0837 May, [facility] [place] [facility] [address] [id number] [address]- 5300 Apr, [facility] [place] [facility] [address] [id number] [place] [address]- 7407 Apr, [facility] [place] [facility] [address] [id number] [place] [address]- 8997 March, [facility] [place] [facility] [address] [id number] [place] [address]- 3597 March, [facility] [place] [facility] [address] [id number] [place] [address]- 2904 March, [facility] [place] [facility] [address] [id number] [place] [address]- 8769 March, [facility] [place] [facility] [address] [id number] [place] [address]- 4910 March, [facility] [place] [facility] [address] [id number] [place] [address]- 8430 March, [facility] [place] [facility] [address] [id number] [place] [address]- 0089 Feb, [facility] [place] [facility] [address] [id number] [place] [address]- 5939 Feb, [facility] [place] [facility] [address] [id number] [place] [address]- 2972 Feb, [facility] [place] [facility] [address] [id number] [place] [address]- 5894 Feb, [facility] [place] [facility] [address] [id number] [place] [address]- 3430 Feb, [facility] [place] [facility] [address] [id number] [place] [address]- 8075 Feb, [facility] [place] [facility] [address] [id number] [place] [address]- 1154 Feb, [facility] [place] [facility] [address] [id number] [place] [address]- 9100 Feb, [facility] [place] [facility] [address] [id number] [place] [address]- 2954 Jan, [facility] [place] [facility] [address] [id number] [place] [address]- 0953 Jan, [facility] [place] [facility] [address] [id number] [place] [address]- 1578 Jan, [facility] [place] [facility] [address] [id number] [place] [address]- 0781 Jan, [facility] [place] [facility] [address] [id number] [place] [address]- 0472 13 Jan, 2014 [facility] [place] [facility] [address] [id number] [place] [address]- 9518 13 Jan, 2014 [facility] [place] [facility] [address] [id number] [place] [address]- 0501 Jan, [facility] [place] [facility] [address] [id number] [place] [address]- 1606 Jan, [facility] [place] [facility] [address] [id number] [place] [address]- 5861 Jan, [facility] [place] [facility] [address] [id number] [place] [address]- 4235 Dec, [facility] [place] [facility] [address] [id number] [place] [address]- 8508 Dec, [facility] [place] [facility] [address] [id number] [place] [address]- 0207 Nov, [facility] [place] [facility] [address] [id number] [place] [address]- 4413 Nov, [facility] [place] [facility] [address] [id number] [place] [address]- 7257 Nov, [facility] [place] [facility] [address] [id number] [place] [address]- 7478 Nov, [facility] [place] [facility] [address] [id number] [place] [address]- 7489 Nov, [facility] [place] [facility] [address] [id number] [place] [address]- 7847 Nov, [facility] [place] [facility] [address] [id number] [place] [address]- 6604 Oct, [facility] [place] [facility] [address] [id number] [place] 7803 Oct, [facility] [place] [facility] [address] [id number] [place] [address]- 5263 Sep, [facility] [place] [facility] [address] [id number] [place] [address]- 4035 Sep, [facility] [place] [facility] [address] [id number] [place] [address]- 4301 Sep, [facility] [place] [facility] [address] [id number] [place] [address]- 1095 Sep, [facility] [place] [facility] [address] [id number] [place] 2582 Sep, [facility] [place] [facility] [address] [id number] [place] [address]- 0954 Sep, [facility] [place] [facility] [address] [id number] [place] [address]- 7919 Sep, [facility] [place] [facility] [address] [id number] [place] [address]- 0091 Sep, [facility] [place] [facility] [address] [id number] [address]- 5535 Aug, [facility] [place] [facility] [address] [id number] [place] [address]- 7061 Aug, [facility] [place] [facility] [address] [id number] [place] [address]- 5402 Aug, [facility] [place] [facility] [address] [id number] [place] [address]- 1205 Jul, [facility] [place] [facility] [address] [id number] [address]- 6011 Jul, [facility] [place] [facility] [address] [id number] [place] [address]- 2962 Jul, [facility] [place] [facility] [address] [id number] [place] [address]- 9450 Jun, [facility] [place] [facility] [address] [id number] [place] [address] Jun, [facility] [place] [facility] [address] [id number] [place] [address] Jun, [facility] [address] [id number] [place] [address] Jun, [facility] [place] [facility] [address] [id number] [place] [address] Jun, [facility] [address] [id number] [place] [address] Jun, [facility] [place] [facility] [address] [id number] [place] [address] May, [facility] [address] [id number] [place] [address] May, [facility] [address] [id number] [place] [address] Apr, [facility] [address] [id number] [place] [address] Apr, [facility] [address] [id number] [place] [address] March, [facility] [address] [id number] [place] [address] Feb, [facility] [address] [id number] [place] [address] Feb, [facility] [address] [id number] [place] [address] Feb, [facility] [place] [facility] [address] [id number] [place] [address] Feb, [facility] [place] [facility] [address] [id number] [place] [address] Jan, [facility] [place] [facility] [address] [id number] [place] [address] Jan, [facility] [place] [facility] [address] [id number] [place] [address] Jan, [facility] [place] [facility] [address] [id number] [place] [address] Jan, [facility] [address] [id number] [place] [address]- [address] Jan, [facility] [address] [id number] [place] [address]- [address] Dec, [facility] [place] [facility] [address] [id number] [place] [address] Nov, [facility] [address] [id number] [place] [address] Nov, [facility] [address] [id number] [place] [address] Oct, [facility] [address] [id number] [place] [address] Oct, [facility] [address] [id number] [place] [address] Oct, [facility] [address] [id number] [place] [address] Oct, [facility] [address] [id number] [place] [address] Oct, [facility] [address] [id number] [place] [address] Oct, [facility] [place] [facility] [address] [id number] [place] [address] Oct, [facility] [place] [facility] [address] [id number] [place] [address] Oct, [facility] [place] [facility] [address] [id number] [place] [address] Aug, [facility] [place] [facility] [address] [id number] [place] [address] Aug, [facility] [place] [facility] [address] [id number] [place] [address] Aug, [facility] [place] [facility] [address] [id number] [place] [address] Aug, [facility] [place] [facility] [address] [id number] [place] [address] Aug, [facility] [place] [facility] [address] [id number] [place] [address] 19 Aug, 2012 [facility] [place] [facility] [address] [id number] [place] [address] 15 Aug, 2012 [facility] [place] [facility] [address] [id number] [place] [address] 27 Jul, 2012 [facility] [place] [facility] [address] [id number] [place] [address] 27 Jul, 2012 [facility] [place] [facility] [address] [id number] [place] [address] 27 Jul, 2012 [facility] [place] [facility] [address] [id number] [place] [address] 27 Jul, 2012 [facility] [place] [facility] [address] [id number] [place] [address]- [address] 03 Jul, 2012 [facility] [place] [facility] [address] [id number] [place] [address] Jun, [facility] [place] [facility] [address] [id number] [place] [address] Jun, [facility] [place] [facility] [address] [id number] [place] [address] Jun, [facility] [place] [facility] [address] [id number] [place] [address] May, [facility] [place] [facility] [address] [id number] [place] [address] May, [facility] [place] [facility] [address] [id number] [place] [address] May, [facility] [place] [facility] [address] [id number] [place] [address] May, [facility] [place] [facility] [address] [id number] [place] [address] May, [facility] [place] [facility] [address] [id number] [place] [address] 17 May, 2012 [facility] [place] [facility] [address] [id number] [place] [address] May, [facility] [place] [facility] [address] [id number] [place] [address] Apr, [facility] [place] [facility] [address] [id number] [place] [address] Apr, [facility] [place] [facility] [address] [id number] [place] [address] March, [facility] [place] [facility] [address] [id number] [place] [address] Feb, [facility] [place] [facility] [address] [id number] [place] [address] 30 Jan, 2012 [facility] [place] [facility] [address] [id number] [place] [address] Jan, [facility] [place] [facility] [address] [id number] [place] [address] Jan, [facility] [place] [facility] [address] [id number] [place] [address] Jan, [facility] [place] [facility] [address] [id number] [place] [address] Jan, [facility] [place] [facility] [address] [id number] [place] [address] Jan, [facility] [place] [facility] [address] [id number] [place] [address] Jan, [facility] [place] [facility] [address] [id number] [place] [address] Jan, [facility] [place] [facility] [address] [id number] [place] [address] Jan, [facility] [place] [facility] [address] [id number] [place] [address] Jan, [facility] [place] [facility] [address] [id number] [place] [address] Dec, [facility] [place] [facility] [address] [id number] [place] [address] Dec, [facility] [place] [facility] [address] [id number] [place] [address] Dec, [facility] [place] [facility] [address] [id number] [place] [address] Dec, [facility] [place] [facility] [address] [id number] [place] [address] Dec, [facility] [place] [facility] [address] [id number] [place] [address] Dec, [facility] [place] [facility] [address] [id number] [place] [address] Dec, [facility] [place] [facility] [address] [id number] [place] [address] Dec, [facility] [place] [facility] [address] [id number] [place] [address] Nov, [facility] [place] [facility] [address] [id number] [place] [address] Nov, [facility] [place] [facility] [address] [id number] [place] [address] Nov, [facility] [place] [facility] [address] [id number] [place] [address] Oct, [facility] [place] [facility] [address] [id number] [place] [address] Oct, [facility] [place] [facility] [address] [facility] [id number] [place] [address] 14 Oct, 2011 [facility] [address] [facility] [id number] [place] [address] Oct, [facility] [address] [facility] [id number] [place] [address] Sep, IMMUNIZATIONS No Known Immunizations SOCIAL HISTORY Never Assessed REASON FOR VISIT Controlled Med Refill 07/22/2017 PLAN OF CARE VITAL SIGNS MEDICATIONS Medication Instructions Dosage Frequency Start Date End Date Duration Status [place] 10-325 MG Orally every 6 hrs 1 tablet as needed 6h Jun, 28 days Active RESULTS No Results PROCEDURES [...] intraocular lens prosthesis Hospitalization History admitted to [facility] for bronchitis then went into cardiac arrest and was resuscitated. She was in the hospital for 7 days. 2012 Hospitalization History surgeries
--- OUTSIDE RECORDS SUMMARY | 2019-01-08 00:06 | XMS REPORT ---
Author Author NALINI GOMEZ Organization [facility] Address [address] [place] [address] Care Team Providers [employer] Sales Consultant Name Role Phone NALINI GOMEZ Unavailable PROBLEMS Type Condition ICD9-CM Code QUN16-VC Code Onset Dates Condition Status SNOMED Code Problem Hypothyroidism, unspecified E03.9 Active 70652293 Problem Other chronic pain G89.29 Active 98186179 Problem Hypercholesterolemia 272.0 Active 92852208 Problem Panlobular emphysema J43.1 Active 7420102 Problem Controlled type 2 diabetes mellitus without complication, without long -term current use of insulin E11.9 Active 094818707 Problem Type 2 diabetes mellitus without complications E11.9 Active [id number] ALLERGIES Substance Reaction Event Type Date Status Rocephin Unknown Drug Allergy Oct, Active Penicillin V Potassium Unknown Drug Allergy Oct, Active Nsaids (non-steroidal Anti-inflammatory Drug) renal insuffiency Non Drug Allergy Oct, Active ENCOUNTERS Encounter Location Date Diagnosis [facility] [id number] [place] [address] 03088- 8327 Apr, [facility] [id number] [place] [address] 42633- 3303 Apr, [facility] [id number] [place] [address] 15063- 4771 March, [facility] [id number] [place] [address] 48674- 4946 March, Viral gastroenteritis A08.4 [facility] [id number] [place] [address] 93668- 3728 Feb, Panlobular emphysema J43.1 [facility] [id number] [place] [address] 22067- 1139 Feb, Panlobular emphysema J43.1 [facility] [id number] [place] [address] 70081- 5428 Feb, [facility] [id number] [place] [address] 11514- 9831 Feb, [facility] [id number] [place] [address] 10735- 3557 Feb, Viral gastroenteritis A08.4 [facility] [id number] [place] [address] 48662- 5674 Feb, Head lice B85.0 [facility] [id number] [place] [address] 25729- 3798 Feb, Medicare annual wellness visit, initial Z00.00 ; Head lice B85.0 ; Tinea corporis B35.4 and Enlarged lymph node R59.9 [facility] [id number] [place] [address] 03025- 6426 Jan, Viral gastroenteritis A08.4 [facility] [id number] [place] [address] 60767- 0346 Jan, [facility] [id number] [place] [address] 10688- 4027 Dec, Controlled type 2 diabetes mellitus without complication, without long-term current use of insulin E11.9 [facility] [id number] [place] [address] 27986- 9305 Dec, [facility] [id number] [place] [address] 30031- 8269 Dec, Viral gastroenteritis A08.4 [facility] [id number] [place] [address] 63619- 2302 Nov, Viral gastroenteritis A08.4 [facility] [id number] [place] [address] 95690- 9323 Oct, Acute upper respiratory infection, unspecified J06.9 and Other viral agents as the cause of diseases classified elsewhere B97.89 [facility] [id number] [place] [address] 17816- 0456 Oct, Viral gastroenteritis A08.4 [facility] [id number] [place] [address] 76599- 1972 Oct, Controlled type 2 diabetes mellitus without complication, without long-term current use of insulin E11.9 ; Encounter for immunization Z23 and Acute pain of left foot M79.672 [facility] [address] 42562- 3531 Sep, Viral gastroenteritis A08.4 [facility] [address] 42814- 4158 Aug, Viral gastroenteritis A08.4 [facility] [id number] [place] [address] 41352- 4008 Jul, Viral gastroenteritis A08.4 [facility] [address] 11160 -2767 Jul, Acute nasopharyngitis (common cold) J00 [place] [facility] [address] 91970- 2813 Jun, Viral gastroenteritis A08.4 [facility] [id number] [place] [address] 04456- 5081 Jun, [facility] [id number] [place] [address] 92517- 5366 Jun, Viral gastroenteritis A08.4 [facility] [id number] [place] [address] 78833- 9743 May, Patellar tendinitis, left knee M76.52 [facility] [address] 53868- 8059 May, Viral gastroenteritis A08.4 [facility] [id number] [place] [address] 36143- 1699 Apr, Viral gastroenteritis A08.4 and Hypothyroidism, unspecified E03.9 [facility] [id number] [place] [address] 81490- 7904 15 Apr, 2017 Pain in left knee M25.562 ; Acute left-sided low back pain without sciatica M54.5 and Type 2 diabetes mellitus without complications E11.9 [facility] [id number] [place] [address] 52372- 1687 07 Apr, 2017 Viral gastroenteritis A08.4 [facility] [id number] [place] [address] 27538- 1158 March, Viral gastroenteritis A08.4 [facility] [id number] [place] [address] 71399 -6563 Feb, Acute pain of left knee M25.562 [facility] [id number] [place] [address] 09019- 4533 13 Feb, 2017 Viral gastroenteritis A08.4 [facility] [id number] [place] [address] 92817- 1661 16 Jan, 2017 Viral gastroenteritis A08.4 and Controlled type 2 diabetes mellitus without complication, without long-term current use of insulin E11.9 [facility] [id number] [place] [address] 08157- 9898 14 Jan, 2017 [facility] [id number] [place] [address] 69932- 4490 16 Dec, 2016 Other chronic pain G89.29 ; Pain in left knee M25.562 ; Controlled type 2 diabetes mellitus without complication, without long-term current use of insulin E11.9 and Acute cystitis with hematuria N30.01 [facility] [id number] [place] [address] 00607- 1238 Dec, [facility] [id number] [place] [address] 81312- 4124 Nov, Type 2 diabetes mellitus without complications E11.9 [facility] [id number] [place] [address] 93781- 5767 Nov, [facility] [id number] [place] [address] 48089- 9892 Oct, [facility] [id number] [place] [address] 36437- 0620 Sep, [facility] [id number] [place] [address] 96011- 7088 Aug, [facility] [address] 21643- 4696 Aug, [facility] [id number] [place] [address] 74634- 9941 Jul, Controlled type 2 diabetes mellitus without complication, without long-term current use of insulin E11.9 ; Callus of foot L84 and URI, acute J06.9 [facility] [id number] [place] [address] 41253- 8104 Jul, [facility] [id number] [place] [address] 06156- 9940 Jun, Onychomycosis B35.1 and Nail ingrowing L60.0 [facility] [id number] [place] [address] 83222- 9259 Jun, [facility] [id number] [place] [address] 18447- 3776 Jun, Lumbar back pain with radiculopathy affecting left lower extremity M54.17 [facility] [id number] [place] [address] 05931- 7275 Jun, [facility] [id number] [place] [address] 69346- 3828 Jun, Other chronic pain G89.29 [facility] [id number] [place] [address] 53523- 4555 Jun, Other chronic pain G89.29 [facility] [id number] [place] [address] 94827- 8025 03 Jun, 2016 Type 2 diabetes mellitus without complications E11.9 [facility] [address] [address]- 7998 Jun, [facility] [id number] [address]- 1925 Jun, Onychomycosis B35.1 ; Callus L84 and Rash R21 [facility] [id number] [address]- 7910 May, [facility] [id number] [address]- 3108 May, [facility] [id number] [place] [address] 70503- 5730 May, Type 2 diabetes mellitus without complications E11.9 [facility] [id number] [address]- 9507 May, [facility] [id number] [place] [address] 66702- 4950 Apr, [facility] [address] [address]- 6274 Apr, Type 2 diabetes mellitus without complications E11.9 ; Acquired hypothyroidism E03.9 ; Callus of foot L84 and Upper respiratory tract infection, unspecified type J06.9 [facility] [address] [place] [address]- 8450 March, [facility] [address] [place] [address]- 4421 Feb, [facility] [id number] [address]- 1787 Jan, Diabetes mellitus without mention of complication, type II or unspecified type, not stated as uncontrolled 250.00 [facility] [address] [place] [address]- 0136 Jan, [facility] [address] [place] [address]- 9477 Jan, Diabetes E11.9 and Hypothyroidism E03.9 [facility] [id number] [place] [address] 17824- 2266 Dec, Diarrhea R19.7 [facility] [id number] [place] [address] 06858- 2546 Dec, [facility] [id number] [place] [address] 86601- 6597 Dec, Hypothyroidism, unspecified E03.9 [facility] [id number] [place] [address] 84377- 5609 Dec, [facility] [id number] [place] [address] 40546- 7323 Dec, Hypothyroidism, unspecified E03.9 [facility] [id number] [place] [address] 99905- 4172 Dec, Diarrhea R19.7 [facility] [id number] [place] [address] 34927- 8568 Dec, Diarrhea R19.7 [facility] [id number] [place] [address] 41627- 3472 Nov, [facility] [id number] [place] [address] 36837- 4642 Nov, [facility] [id number] [place] [address] 94959- 7098 Oct, [facility] [address] [address]- 6905 18 Sep, 2015 Postnasal drip R09.82 [facility] [id number] [place] [address] 22701- 0709 Sep, [facility] [address] [place] [address]- 9243 Sep, [facility] [id number] [place] [address] 45092- 4050 Aug, [facility] [address] 0581 Aug, [facility] [id number] [place] [address] 159682- 3476 Jul, Hypothyroidism 244.9 [facility] [id number] [place] [address] 697393- 0353 Jul, Diabetes mellitus without mention of complication, type II or unspecified type, not stated as uncontrolled 250.00 [facility] [id number] [place] [address] 025276- 4172 14 Jul, 2015 [facility] [id number] [place] [address] 004488- 1897 Jul, [facility] [id number] [place] [address] 50624- 0467 Jun, [facility] [id number] [place] [address] 15530- 9833 May, Other chronic pain 338.29 [facility] [id number] [place] [address] 23915- 7071 May, Other chronic pain 338.29 [facility] [id number] [place] [address] 164239- 6626 May, [facility] [id number] [place] [address] 69987- 7631 May, [facility] [id number] [place] [address] 83407- 8721 Apr, Rash 782.1 ; Hypercholesterolemia 272.0 and Hypothyroidism 244.9 [facility] [id number] [place] [address] 608544- 1374 Apr, [facility] [id number] [place] [address] 171350- 8189 Apr, [facility] [id number] [place] [address] 60536- 7010 March, [facility] [place] [facility] [address] [id number] [place] [address]- 3033 14 Feb, 2015 [facility] [place] [facility] [address] [id number] [place] [address]- 5176 Feb, [facility] [place] [facility] [address] [id number] [place] [address]- 0027 Jan, [facility] [place] [facility] [address] [id number] [place] [address]- 4280 Jan, [facility] [place] [facility] [address] [id number] [place] [address]- 0571 Jan, [facility] [place] [facility] [address] [id number] [place] [address]- 0451 Jan, [facility] [place] [facility] [address] [id number] [place] [address]- 8685 Jan, [facility] [place] [facility] [address] [id number] [place] [address]- 0705 Jan, [facility] [place] [facility] [address] [id number] [place] [address]- 4792 Jan, [facility] [place] [facility] [address] [id number] [place] [address]- 9350 Dec, [facility] [place] [facility] [address] [id number] [place] [address]- 9760 Dec, [facility] [place] [facility] [address] [id number], [place] [address]- 6594 Nov, [facility] [place] [facility] [address] [id number] [place] [address]- 2566 Nov, [facility] [place] [facility] [address] [id number] [place] [address]- 0223 Nov, [facility] [place] [facility] [address] [id number] [place] [address]- 2431 Nov, [facility] [place] [facility] [address] [id number] [place] [address]- 0567 15 Nov, 2014 [facility] [address] [id number] [place] [address]- 4472 Nov, [facility] [place] [facility] [address] [id number] [place] [address]- 3273 Oct, [facility] [place] [facility] [address] [id number] [place] [address]- 6740 Oct, [facility] [place] [facility] [address] [id number] [place] [address]- 2783 Sep, [facility] [place] [facility] [address] [id number] [place] [address]- 4988 Sep, [facility] [place] [facility] [address] [id number] [place] [address]- 1082 Sep, [facility] [place] [facility] [address] [id number] [place] [address]- 4676 Sep, [facility] [place] [facility] [address] [id number] [place] [address]- 2421 Aug, [facility] [place] [facility] [address] [id number] [place] [address]- 5414 Aug, [facility] [place] [facility] [address] [id number] [place] [address]- 6210 Jul, [facility] [place] [facility] [address] [id number] [place] [address]- 0111 Jul, [facility] [place] [facility] [address] [id number] [place] [address]- 7672 Jun, [facility] [place] [facility] [address] [id number] [place] [address]- 4079 Jun, [facility] [place] [facility] [address] [id number] [place] [address]- 2520 Jun, [facility] [place] [facility] [address] [id number] [place] [address]- 5924 Jun, [facility] [place] [facility] [address] [id number] [place] [address]- 0735 May, [facility] [place] [facility] [address] [id number] [place] [address]- 4713 May, [facility] [place] [facility] [address] [id number] [place] [address]- 6761 May, [facility] [place] [facility] [address] [id number] [place] [address]- 7940 May, [facility] [place] [facility] [address] [id number] [place] [address]- 9125 Apr, [facility] [place] [facility] [address] [id number] [place] [address]- 1796 Apr, [facility] [place] [facility] [address] [id number] [place] [address]- 1110 March, [facility] [place] [facility] [address] [id number] [place] [address]- 6876 March, [facility] [place] [facility] [address] [id number] [place] [address]- 4119 March, [facility] [place] [facility] [address] [id number] [place] [address]- 8582 March, [facility] [place] [facility] [address] [id number] [place] [address]- 8067 March, [facility] [place] [facility] [address] [id number] [place] [address]- 0039 March, [facility] [place] [facility] [address] [id number] [place] [address]- 7194 Feb, [facility] [place] [facility] [address] [id number] [place] [address]- 9442 Feb, [facility] [place] [facility] [address] [id number] [place] [address]- 2749 Feb, [facility] [place] [facility] [address] [id number] [place] [address]- 9982 Feb, [facility] [place] [facility] [address] [id number] [place] [address]- 9337 Feb, [facility] [place] [facility] [address] [id number] [place] [address]- 5816 Feb, [facility] [place] [facility] [address] [id number] [place] [address]- 5170 Feb, [facility] [place] [facility] [address] [id number] [place] [address]- 9074 Feb, [facility] [place] [facility] [address] [id number] [place] [address]- 1948 Jan, [facility] [place] [facility] [address] [id number] [place] [address]- 2176 Jan, [facility] [place] [facility] [address] [id number] [place] [address]- 4458 Jan, [facility] [place] [facility] [address] [id number] [place] [address]- 8896 Jan, [facility] [place] [facility] [address] [id number] [place] [address]- 9582 Jan, [facility] [place] [facility] [address] [facility] [id number] [place] [address]- 2076 Jan, [facility] [place] [facility] [address] [id number] [place] [address]- 4097 Jan, [facility] [place] [facility] [address] [id number] [place] [address]- 8982 Jan, [facility] [place] [facility] [address] [id number] [place] [address]- 3057 Jan, [facility] [place] [facility] [address] [id number] [place] [address]- 1455 Dec, [facility] [place] [facility] [address] [id number] [place] [address]- 4741 Dec, [facility] [place] [facility] [address] [id number] [place] [address]- 3988 Nov, [facility] [place] [facility] [address] [id number] [place] [address]- 4200 Nov, [facility] [place] [facility] [address] [id number] [place] [address]- 2519 Nov, [facility] [place] [facility] [address] [id number] [place] [address]- 5449 Nov, [facility] [place] [facility] [address] [id number] [place] [address]- 5277 Nov, [facility] [place] [facility] [address] [id number] [place] [address]- 7917 Nov, [facility] [place] [facility] [address] [id number] [place] [address]- 3379 Oct, [facility] [place] [facility] [address] [id number] [place] [address]- 7713 Oct, [facility] [place] [facility] [address] [id number] [place] [address]- 0674 Sep, [facility] [place] [facility] [address] [id number] [place] [address]- 0929 Sep, [facility] [place] [facility] [address] [id number] [place] [address]- 4701 Sep, [facility] [place] [facility] [address] [id number] [place] [address]- 2882 Sep, [facility] [place] [facility] [address] [id number] [place] [address]- 1893 Sep, [facility] [place] [facility] [address] [id number] [place] [address]- 9992 Sep, [facility] [place] [facility] [address] [id number] [place] [address] Sep, [facility] [place] [facility] [address] [id number] [place] [address] Sep, [facility] [place] [facility] [address] [id number] [place] [address] Aug, [facility] [place] [facility] [address] [id number] [place] [address] Aug, [facility] [place] [facility] [address] [id number] [place] [address] Aug, [facility] [place] [facility] [address] [id number] [place] [address] Jul, [facility] [place] [facility] [address] [id number] [place] [address] Jul, [facility] [place] [facility] [address] [id number] [place] [address] Jul, [facility] [place] [facility] [address] [id number] [place] [address] Jun, [facility] [place] [facility] [address] [id number] [place] [address] Jun, [facility] [place] [facility] [address] [id number] [place] [address] Jun, [facility] [place] [facility] [address] [id number] [place] [address]- [address] Jun, [facility] [place] [facility] [address] [id number], [place] [address] Jun, [facility] [place] [facility] [address] [id number], [place] [address] Jun, [facility] [place] [facility] [address] [id number] [place] [address] May, [facility] [place] [facility] [address] [id number], [place] [address] May, [facility] [place] [facility] [address] [id number] [place] [address] Apr, [facility] [place] [facility] [address] [id number] [place] [address]- [address] Apr, [facility] [address] [id number] [place] [address] March, [facility] [address] [id number] [place] [address] Feb, [facility] [address] [id number] [place] [address] Feb, [facility] [address] [id number] [place] [address]- [address] 16 Feb, 2013 [facility] [address] [id number] [place] [address] Feb, [facility] [address] [id number] [place] [address] Jan, [facility] [address] [id number] [place] [address] Jan, [facility] [address] [id number] [place] [address] Jan, [facility] [address] [id number] [place] [address] Jan, [facility] [address] [id number] [place] [address] Jan, [facility] [address] [id number] [place] [address] Dec, [facility] [address] [id number] [place] [address] Nov, [facility] [address] [id number] [place] [address] 9[address] Nov, [facility] [address] [id number] [place] [address] Oct, [facility] [address] [id number] [place] [address] Oct, [facility] [place] [facility] [address] [id number] [place] [address] Oct, [facility] [place] [facility] [address] [id number] [place] [address]- [address] Oct, [facility] [place] [facility] [address] [id number] [place] [address]- [address] Oct, [facility] [place] [facility] [address] [id number] [place] [address], [place] [address] Oct, [facility] [place] [facility] [address] [id number] [place] [address]- [address] Oct, [facility] [place] [facility] [address] [id number] [place] [address]- [address] Oct, [facility] [address] [id number] [place] [address]- [address] Aug, [facility] [place] [facility] [address] [id number] [place] [address]- [address] Aug, [facility] [place] [facility] [address] [id number] [place] [address]- [address] Aug, [facility] [place] [facility] [address] [id number] [place] [address]- [address] Aug, [facility] [place] [facility] [address] [facility] [id number] [place] [address] Aug, [facility] [place] [facility] [address] [id number], [place] [address] Aug, [facility] [place] [facility] [address] [id number] [place] [address] 15 Aug, 2012 [facility] [place] [facility] [address] [id number] [place] [address] Jul, [facility] [place] [facility] [address] [id number] [address] 27 Jul, 2012 [facility] [place] [facility] [address] [id number], [place] [address] Jul, [facility] [place] [facility] [address] [id number] [place] [address] Jul, [facility] [place] [facility] [address] [id number] [place] [address] Jul, [facility] [place] [facility] [address] [id number] [place] [address] Jun, [facility] [place] [facility] [address] [id number] [place] [address] Jun, [facility] [place] [facility] [address] [id number] [place] [address] Jun, [facility] [place] [facility] [address] [id number] [place] [address] May, [facility] [place] [facility] [address] [id number] [place] [address] May, [facility] [place] [facility] [address] [id number] [place] [address] May, [facility] [place] [facility] [address] [id number] [place] [address] May, [facility] [place] [facility] [address] [id number] [place] [address] May, [facility] [place] [facility] [address] [id number] [place] [address] May, [facility] [place] [facility] [address] [id number] [place] [address] May, [facility] [place] [facility] [address] [id number] [place] [address] Apr, [facility] [place] [facility] [address] [id number] [place] [address] Apr, [facility] [place] [facility] [address] [id number] [place] [address] March, [facility] [place] [facility] [address] [id number] [place] [address] 13 Feb, 2012 [facility] [address] [id number] [place] [address] 30 Jan, 2012 [facility] [place] [facility] [address] [id number] [place] [address] 28 Jan, 2012 [facility] [place] [facility] [address] [id number] [place] [address] 2826 28 Jan, 2012 [facility] [place] [facility] [address] [id number] [place] [address] 28 Jan, 2012 [facility] [place] [facility] [address] [id number] [place] [address] Jan, [facility] [place] [facility] [address] [id number] [place] [address] Jan, [facility] [place] [facility] [address] [id number] [place] [address] Jan, [facility] [address] [id number] [place] [address] 28 Jan, 2012 [facility] [place] [facility] [address] [id number] [place] [address] Jan, [facility] [place] [facility] [address] [id number] [place] [address] Jan, [facility] [place] [facility] [address] [id number] [place] [address] Dec, [facility] [place] [facility] [address] [id number] [place] [address] Dec, [facility] [place] [facility] [address] [id number] [place] [address] Dec, [facility] [place] [facility] [address] [id number] [place] [address] Dec, [facility] [place] [facility] [address] [id number] [place] [address] Dec, [facility] [id number] [address] Dec, [facility] [id number], [place] [address] Dec, [facility] [id number], [place] [address] Dec, [facility] [id number] [place] [address] Nov, [facility] [id number] [place] [address] Nov, [facility] [id number] [place] [address] Nov, [facility] [id number] [place] [address] Oct, [facility] [id number] [place] [address] Oct, [facility] [id number] [place] [address] Oct, [facility] [id number], [place] [address] Oct, [facility] [address] [id number] [address] Sep, IMMUNIZATIONS Vaccine Route Administration Date Status FLUARIX QUAD (3 AND UP) 2017 IM Intramuscular Oct 22, 2017 Administered SOCIAL HISTORY Never Assessed REASON FOR VISIT Diabetes, left foot swelling and bruised and ankle pain-Dayron BURGOS PLAN OF CARE VITAL SIGNS Height 64 in 2017-10-22 Weight 212.8 lbs 2017-10-22 Temperature 98.0 degrees Fahrenheit 2017-10-22 Heart Rate 74 bpm 2017-10-22 Respiratory Rate 18 2017-10-22 BMI 36.52 kg/m2 2017-10-22 Blood pressure systolic 118 mmHg 2017-10-22 Blood pressure diastolic 74 mmHg 2017-10-22 MEDICATIONS Medication Instructions Dosage Frequency Start Date End Date Duration Status Ropinirole HCl 4 MG TAKE ONE TABLET BY MOUTH ONCE DAILY 30 Active Metformin HCl 500 MG Orally 2 times a day 2 tablets 12h Active Montelukast Sodium 10 MG 1 tablet 24h 30 Active Myrbetriq 50 MG TAKE ONE TABLET BY MOUTH ONCE DAILY Apr, 30 Active Crestor 40 MG Orally Once a day 1 tablet 24h 30 Active Levothyroxine Sodium 125 mcg Orally Once a day 1 tablet on an empty stomach in the morning 24h Active Ranitidine HCl 150 MG Orally Twice a day 1 tablet 12h Active [place] 10-325 MG Orally every 6 hrs 1 tablet as needed 6h Sep, 28 days Active Zofran 4 MG Orally 3 times a day 1 tablet 8h 10 Active RESULTS Name Result Date Reference Range A1C (IN HOUSE) 2017-10-22 A1C IN HOUSE 6.9 4.3 - 5.6 % Previous A1c 7.1 Lot [id number] Exp date 06/2019 MICROALBUMIN, URINE (IN HOUSE) 2017-10-22 MICROALBUMIN normal Lot # [id number] Exp date 07/2018 Clarity clear Color yellow ALB 10 CRE 100 A:C (IN HOUSE) <30 Control normal Control Lot # Exp date Xray : Foot, Left 3 views (IN HOUSE) 2017-10-22 PROCEDURES Procedure Date Ordered Result Body Site GLYCATED HEMOGLOBIN TEST Oct 22, 2017 MICROALBUMIN, SEMIQUANT Oct 22, 2017 X-RAY EXAM OF FOOT Oct 22, 2017 SINGLE IMMUNIZATION ADMIN Oct 22, 2017 FLUARIX QUAD (3 AND UP) 2016Oct 22, 2017 INSTRUCTIONS MEDICATIONS ADMINISTERED No Known Medications MEDICAL [...] intraocular lens prosthesis Hospitalization History admitted to [facility] for bronchitis then went into cardiac arrest and was resuscitated. She was in the hospital for 7 days. 2012 Hospitalization History surgeries
--- OUTSIDE RECORDS SUMMARY | 2019-01-08 00:07 | XMS REPORT ---
Author Author NALINI GOMEZ Organization [facility] Address [address] [place] [address] Care Team Providers Care Casework Supervisor Name Role Phone NALINI GOMEZ Unavailable PROBLEMS Type Condition ICD9-CM Code NPO20-AX Code Onset Dates Condition Status SNOMED Code Problem Hypothyroidism, unspecified E03.9 Active 52948282 Problem Other chronic pain G89.29 Active 89408885 Problem Hypercholesterolemia 272.0 Active 07098290 Problem Controlled type 2 diabetes mellitus without complication, without long -term current use of insulin E11.9 Active 228541407 Problem Type 2 diabetes mellitus without complications E11.9 Active [id number] ALLERGIES Substance Reaction Event Type Date Status Rocephin Unknown Drug Allergy Dec, Active Penicillin V Potassium Unknown Drug Allergy Dec, Active Nsaids (non-steroidal Anti-inflammatory Drug) renal insuffiency Non Drug Allergy Dec, Active SOCIAL HISTORY Never Assessed PLAN OF CARE VITAL SIGNS Height 64 in 2017-01-07 Weight 212 lbs 2017-01-07 Temperature 97.8 degrees Fahrenheit 2017-01-07 Heart Rate 76 bpm 2017-01-07 Respiratory Rate 18 2017-01-07 Head Circumference 76 cm 2017-01-07 BMI 36.39 kg/m2 2017-01-07 Blood pressure systolic 126 mmHg 2017-01-07 Blood pressure diastolic 80 mmHg 2017-01-07 MEDICATIONS Medication Instructions Dosage Frequency Start Date End Date Duration Status Advair Diskus 500-50 MCG/DOSE 1 puff 12h 30 Active Ranitidine HCl 150 MG Orally Twice a day 1 tablet 12h 90 Active Montelukast Sodium 10 MG 1 tablet 24h 90 Active Citalopram Hydrobromide 10 mg 1 tablet 24h Active Levothyroxine Sodium 125 MCG Orally Once a day 1 tablets 24h 90 Active Toviaz 8 MG TAKE ONE TABLET BY MOUTH ONCE DAILY 30 Active Ropinirole HCl 4 MG 1 tablet 24h 90 Active Crestor 40 MG Orally Once a day 1 tablet 24h 90 Active Blood Glucose Monitor System w/Device tests 3 times a day. Dispense per insurance, pt has one touch ultra currently (broken) Jun, Active Cozaar 50 MG Orally Once a day 1 tablet 24h 90 Active Bactrim DS 800-160 MG Orally Twice a day 1 tablet 12h Dec,Dec 10 day(s) Active OneTouch Ultra Test TEST BLOOD SUGAR 12h 30 days Active OneTouch Delica Lancets 33G 33 TEST TWO TIMES A DAY 30 Active Metformin HCl 500 MG Orally Twice a day 2 tablets 12h Active Neurontin 100 MG Orally Once a day, at night 1 capsule 30 Active [place] 10-325 MG Orally 4 times a day 1 tablet as needed 6h Dec, Jan, 28 days Active Myrbetriq 50 MG Orally Once a day 1 tablet 24h May, 30 day(s) Active RESULTS Name Result Date Reference Range A1C (IN HOUSE) 2017-01-07 A1C IN HOUSE 7.6 4.3 - 5.6 % Previous A1c 6.8 Lot [id number] Exp date 09/2018 UA LONG DIP (IN HOUSE) 2017-01-07 Lot # [id number] Exp date 11/2017 Clarity turbid Color orange Odor yes GLU Neg FERNANDA Neg KET Neg SG 1.025 BLO 1+ pH 5.0 Protein Trace URO 0.2 NIT Positive LEAH 1+ Lot # Exp date [employer] 2017-01-07 PROCEDURES Procedure Date Ordered Result Body Site URINALYSIS, AUTO, W/O SCOPE Jan 07, 2017 No Charge Jan 07, 2017 GLYCATED HEMOGLOBIN TEST Jan 07, 2017 IMMUNIZATIONS No Known Immunizations MEDICAL (GENERAL) HISTORY Type Description Date Medical [...] intraocular lens prosthesis Hospitalization History admitted to [facility] for bronchitis then went into cardiac arrest and was resuscitated. She was in the hospital for 7 days. 2012 Hospitalization History surgeries
--- OUTSIDE RECORDS SUMMARY | 2019-01-08 00:07 | XMS REPORT ---
Author Author NALINI GOEMZ Organization [facility] Address [address] [place] [address] Care Team Providers Care Brick Pointer Name Role Phone NALINI GOMEZ Unavailable PROBLEMS Type Condition ICD9-CM Code VNX30-PT Code Onset Dates Condition Status SNOMED Code Problem Hypothyroidism, unspecified E03.9 Active 24673322 Problem Other chronic pain G89.29 Active 39000533 Problem Hypercholesterolemia 272.0 Active 40612277 Problem Panlobular emphysema J43.1 Active 8864193 Problem Controlled type 2 diabetes mellitus without complication, without long -term current use of insulin E11.9 Active 495960506 Problem Type 2 diabetes mellitus without complications E11.9 Active 174772151 ALLERGIES No Information ENCOUNTERS Encounter Location Date Diagnosis [place] [address] [address] Apr, Type 2 diabetes mellitus without complications E11.9 and Panlobular emphysema J43.1 [place] [address] [place] [id number] [place] [address] 74226- 0814 Apr, Viral gastroenteritis A08.4 [place] [address] [place] [id number] [place] [address] 22641- 4128 March, [place] [address] [place] [id number] [place] [address] 76747- 9323 March, Viral gastroenteritis A08.4 [place] [address] [place] [id number] [place] [address] 84913- 1070 Feb, Panlobular emphysema J43.1 [place] [address] [place] [id number] [place] [address] 82867- 8636 Feb, Panlobular emphysema J43.1 [place] [address] 22412- 6203 Feb, [place] [address] [place] [id number] [place] [address] 94448- 9641 Feb, [place] [address] [place] [id number] [place] [address] 92540- 3197 Feb, Viral gastroenteritis A08.4 [place] [address] [place] [id number] [place] [address] 31570- 6953 Feb, Head lice B85.0 [place] [address] [place] [id number] [place] [address] 40455- 3461 Feb, Medicare annual wellness visit, initial Z00.00 ; Head lice B85.0 ; Tinea corporis B35.4 and Enlarged lymph node R59.9 [place] [address] [place] [id number] [place] [address] 56613- 0377 Jan, Viral gastroenteritis A08.4 [place] [address] [place] [id number] [place] [address] 63782- 6208 Jan, [place] [address] [place] [id number] [place] [address] 29758- 6696 Dec, Controlled type 2 diabetes mellitus without complication, without long-term current use of insulin E11.9 [place] [address] [place] [id number] [place] [address] 71362- 4472 Dec, [place] [address] [place] [id number] [place] [address] 11822- 6407 Dec, Viral gastroenteritis A08.4 [place] [address] [place] [id number] [place] [address] 36137- 4697 Nov, Viral gastroenteritis A08.4 [place] [address] [place] [id number] [place] [address] 42582- 5349 Oct, Acute upper respiratory infection, unspecified J06.9 and Other viral agents as the cause of diseases classified elsewhere B97.89 [place] [address] [place] [id number] [place] [address] 24696- 2685 Oct, Viral gastroenteritis A08.4 [facility] [address] [place] [id number] [place] [address] 38243- 5324 Oct, Controlled type 2 diabetes mellitus without complication, without long-term current use of insulin E11.9 ; Encounter for immunization Z23 and Acute pain of left foot M79.672 [place] [address] 02365- 9856 Sep, Viral gastroenteritis A08.4 [place] [address] 74429- 0203 Aug, Viral gastroenteritis A08.4 [place] [address] 72809- 1273 Jul, Viral gastroenteritis A08.4 [facility] [address] [place] [id number] [place] [address] 72707 -9701 Jul, Acute nasopharyngitis (common cold) J00 [place] [address] [place] [id number] [place] [address] 20105- 8708 Jun, Viral gastroenteritis A08.4 [place] [address] 93112- 0993 Jun, [place] [address] [place] [id number] [place] [address] 66296- 0592 Jun, Viral gastroenteritis A08.4 [place] [address] [place] [id number] [place] [address] 12644- 4055 May, Patellar tendinitis, left knee M76.52 [place] [address] [place] [id number] [place] [address] 48898- 7917 May, Viral gastroenteritis A08.4 [place] [address] [place] [id number] [place] [address] 91165- 4450 Apr, Viral gastroenteritis A08.4 and Hypothyroidism, unspecified E03.9 [place] [address] 31045- 1578 15 Apr, 2017 Pain in left knee M25.562 ; Acute left-sided low back pain without sciatica M54.5 and Type 2 diabetes mellitus without complications E11.9 [place] [address] [place] [id number] [place] [address] 57356- 4348 07 Apr, 2017 Viral gastroenteritis A08.4 [facility] [address] [place] [id number] [place] [address] 31772- 8761 March, Viral gastroenteritis A08.4 [facility] [address] [place] [id number] [place] [address] 95318 -2617 Feb, Acute pain of left knee M25.562 [place] [address] [place] [id number] [place] [address] 32406- 4179 Feb, Viral gastroenteritis A08.4 [facility] [address] [place] [id number] [place] [address] 50724- 5788 16 Jan, 2017 Viral gastroenteritis A08.4 and Controlled type 2 diabetes mellitus without complication, without long-term current use of insulin E11.9 [place] [address] [place] [id number] [place] [address] 67445- 1902 14 Jan, 2017 [place] [address] [place] [id number] [place] [address] 35444- 0245 16 Dec, 2016 Other chronic pain G89.29 ; Pain in left knee M25.562 ; Controlled type 2 diabetes mellitus without complication, without long-term current use of insulin E11.9 and Acute cystitis with hematuria N30.01 [place] [address] [place] [id number] [place] [address] 85281- 9677 Dec, [place] [address] [place] [id number] [place] [address] 62963- 2352 Nov, Type 2 diabetes mellitus without complications E11.9 [place] [address] [place] [id number] [place] [address] 21009- 5710 Nov, [place] [address] [place] [id number] [place] [address] 29986- 3110 Oct, [facility] [id number] [place] [address] 69147- 2003 Sep, [facility] [address] [place] [id number] [place] [address] 68707- 1722 Aug, [facility] [address] [place] [id number] [place] [address] 04328- 7655 Aug, [facility] [address] 29381- 4371 Jul, Controlled type 2 diabetes mellitus without complication, without long-term current use of insulin E11.9 ; Callus of foot L84 and URI, acute J06.9 [place] [address] [place] [id number] [place] [address] 02739- 6683 Jul, [place] [address] [place] [id number] [place] [address] 04996- 5676 Jun, Onychomycosis B35.1 and Nail ingrowing L60.0 [place] [address] [place] [id number] [place] [address] 43513- 8308 Jun, [place] [address] [place] [id number] [place] [address] 40020- 0128 Jun, Lumbar back pain with radiculopathy affecting left lower extremity M54.17 [place] [address] [place] [id number] [place] [address] 45253- 7746 Jun, [facility] [address] [place] [id number] [place] [address] 65501- 1143 Jun, Other chronic pain G89.29 [place] [address] [place] [id number] [place] [address] 86558- 2000 Jun, Other chronic pain G89.29 [facility] [address] [place] [id number] [place] [address] 46941- 5115 Jun, Type 2 diabetes mellitus without complications E11.9 [facility] [address] [place] [id number] [place] [address] 60806- 6626 Jun, [facility] [address] [address]- 0576 Jun, Onychomycosis B35.1 ; Callus L84 and Rash R21 [facility] [address] [address]- 3173 May, [facility] [address] [place] [id number] [place] [address] 47743- 5615 May, [facility] [address] [address]- 6526 May, Type 2 diabetes mellitus without complications E11.9 [facility] [address] [place] [id number] [address]- 5163 May, [facility] [address] [address]- 9632 Apr, [facility] [address] [address]- 2055 Apr, Type 2 diabetes mellitus without complications E11.9 ; Acquired hypothyroidism E03.9 ; Callus of foot L84 and Upper respiratory tract infection, unspecified type J06.9 [facility] [address] [address]- 9574 March, [facility] [address] [address]- 3896 Feb, [facility] [address] [address]- 6147 Jan, Diabetes mellitus without mention of complication, type II or unspecified type, not stated as uncontrolled 250.00 [facility] [address] [address]- 4348 Jan, [facility] [address] [address]- 6772 Jan, Diabetes E11.9 and Hypothyroidism E03.9 [facility] [address] [place] [id number] [address] 2546 29 Dec, 2015 Diarrhea R19.7 [facility] [id number] [place] [address] 06537 2546 Dec, [facility] [address] [address] 2546 Dec, Hypothyroidism, unspecified E03.9 [facility] [address] [place] [id number] [place] [address] 63941 2546 Dec, [facility] [id number] [place] [address] 52828 2546 Dec, Hypothyroidism, unspecified E03.9 [facility] [id number] [place] [address] 45104 2546 Dec, Diarrhea R19.7 [facility] [address] [place] [id number] [place] [address] 42633 2546 Dec, Diarrhea R19.7 [facility] [id number] [place] [address] 57281 2540 Nov, [facility] [id number] [place] [address] 67062 2546 Nov, [facility] [address] [address]- 8745 Oct, [facility] [address] [address]- 8147 Sep, Postnasal drip R09.82 [facility] [address] [address] 2546 Sep, [facility] [address] [address] 2546 Sep, [facility] [address] [address]- 9359 14 Aug, 2015 [facility] [id number] [place] [address] 07460- 0107 Aug, [facility] [address] [address]- 3224 Jul, Hypothyroidism 244.9 [facility] [address] [place] [id number] [place] [address] 311068- 9267 Jul, Diabetes mellitus without mention of complication, type II or unspecified type, not stated as uncontrolled 250.00 [facility] [address] [place] [id number] [place] [address] 22942- 6374 Jul, [facility] [address] [place] [id number] [place] [address] 19564- 1087 Jul, [facility] [address] [place] [id number] [place] [address] 44377- 9168 Jun, [facility] [address] [place] [id number] [place] [address] 65924- 1167 May, Other chronic pain 338.29 [facility] [address] [place] [id number] [place] [address] 27946- 8064 May, Other chronic pain 338.29 [facility] [address] [place] [id number] [place] [address] 95434- 8965 May, [facility] [id number] [place] [address] 36838- 7621 May, [facility] [id number] [place] [address] 71315- 0593 Apr, Rash 782.1 ; Hypercholesterolemia 272.0 and Hypothyroidism 244.9 [facility] [address] [address]- 8490 Apr, [facility] [address] [place] [id number] [place] [address] 24628- 7162 Apr, [facility] [id number] [place] [address] 96343- 9548 March, [facility] [address] [place] [id number] [place] [address] 72972- 1116 14 Feb, 2015 [facility] [place] [facility] [address] [id number] [place] [address]- 9413 13 Feb, 2015 [facility] [place] [facility] [address] [id number] [place] [address]- 0943 26 Jan, 2015 [facility] [place] [facility] [address] [id number] [place] [address]- 2650 Jan, [facility] [place] [facility] [address] [id number] [place] [address]- 9120 25 Jan, 2015 [facility] [place] [facility] [address] [id number] [place] [address]- 4981 Jan, [facility] [place] [facility] [address] [id number] [place] [address]- 3925 Jan, [facility] [place] [facility] [address] [id number] [place] [address]- 0963 Jan, [facility] [place] [facility] [address] [id number] [place] [address]- 4088 Jan, [facility] [place] [facility] [address] [id number] [place] [address]- 7385 Dec, [facility] [place] [facility] [address] [facility] [id number] [place] [address]- 0260 Dec, [facility] [place] [facility] [address] [id number] [place] [address]- 5282 Nov, [facility] [place] [facility] [address] [id number] [place] [address]- 9316 Nov, [facility] [place] [facility] [address] [id number] [place] [address]- 2929 Nov, [facility] [place] [facility] [address] [id number] [place] [address]- 2697 Nov, [facility] [place] [facility] [address] [facility] [id number] [address]- 2550 Nov, [facility] [place] [facility] [address] [id number] [place] [address]- 5168 Nov, [facility] [place] [facility] [address] [id number] [place] [address]- 4170 Oct, [facility] [place] [facility] [address] [id number] [place] [address]- 1298 Oct, [facility] [place] [facility] [address] [id number] [place] [address]- 2232 Sep, [facility] [place] [facility] [address] [id number] [place] [address]- 6421 Sep, [facility] [place] [facility] [address] [id number] [place] [address]- 5339 Sep, [facility] [place] [facility] [address] [id number] [place] [address]- 8012 Sep, [facility] [place] [facility] [address] [id number] [place] [address]- 0772 Aug, [facility] [place] [facility] [address] [id number] [place] [address]- 8333 Aug, [facility] [place] [facility] [address] [id number] [place] [address]- 1673 Jul, [facility] [place] [facility] [address] [id number] [place] [address]- 5135 Jul, [facility] [place] [facility] [address] [id number] [place] [address]- 4086 Jun, [facility] [place] [facility] [address] [id number] [place] [address]- 3154 Jun, [facility] [place] [facility] [address] [id number] [place] [address]- 1418 Jun, [facility] [place] [facility] [address] [id number] [place] [address]- 4437 Jun, [facility] [place] [facility] [address] [id number] [place] [address]- 9852 May, [facility] [place] [facility] [address] [id number] [place] [address]- 5357 May, [facility] [place] [facility] [address] [id number] [place] [address]- 0456 May, [facility] [place] [facility] [address] [id number] [place] [address]- 3550 May, [facility] [place] [facility] [address] [id number] [place] [address]- 1236 Apr, [facility] [place] [facility] [address] [id number] [place] [address]- 6838 Apr, [facility] [place] [facility] [address] [id number] [place] [address]- 9586 March, [facility] [place] [facility] [address] [id number] [place] [address]- 8673 March, [facility] [place] [facility] [address] [id number] [place] [address]- 6354 March, [facility] [place] [facility] [address] [id number] [place] [address]- 9394 March, [facility] [place] [facility] [address] [id number] [place] [address]- 3714 March, [facility] [place] [facility] [address] [id number] [place] [address]- 0904 March, [facility] [place] [facility] [address] [id number] [place] [address]- 9815 Feb, [facility] [place] [facility] [address] [id number] [place] [address]- 5134 Feb, [facility] [place] [facility] [address] [id number] [place] [address]- 9464 Feb, [facility] [place] [facility] [address] [id number] [place] [address]- 6084 Feb, [facility] [place] [facility] [address] [id number] [place] [address]- 4578 Feb, [facility] [address] [id number] [place] [address]- 5256 Feb, [facility] [place] [facility] [address] [id number] [place] [address]- 4033 Feb, [facility] [address] [id number] [place] [address]- 4352 Feb, [facility] [place] [facility] [address] [id number] [place] [address]- 1315 Jan, [facility] [place] [facility] [address] [id number] [place] [address]- 8671 Jan, [facility] [place] [facility] [address] [id number] [place] [address]- 0987 Jan, [facility] [place] [facility] [address] [id number] [place] [address]- 2471 Jan, [facility] [address] [id number] [place] [address]- 7060 Jan, [facility] [place] [facility] [address] [id number] [place] [address]- 7319 Jan, [facility] [address] [id number] [place] [address]- 9085 Jan, [facility] [place] [facility] [address] [id number] [place] [address]- 5024 Jan, [facility] [place] [facility] [address] [id number] [place] [address]- 8029 Jan, [facility] [place] [facility] [address] [id number] [place] [address]- 7857 Dec, [facility] [place] [facility] [address] [id number] [place] [address]- 9317 Dec, [facility] [place] [facility] [address] [id number] [place] 9927 Nov, [facility] [place] [facility] [address] [id number] [place] [address]- 0279 Nov, [facility] [place] [facility] [address] [id number] [place] [address]- 5175 Nov, [facility] [place] [facility] [address] [id number] [place] [address]- 6020 Nov, [facility] [place] [facility] [address] [id number] [place] [address]- 8085 Nov, [facility] [place] [facility] [address] [id number] [place] [address]- 2619 Nov, [facility] [place] [facility] [address] [id number] [place] [address]- 3741 Oct, [facility] [place] [facility] [address] [id number] [place] [address]- 8887 Oct, [facility] [place] [facility] [address] [id number] [address]- 1515 Sep, [facility] [place] [facility] [address] [id number] [place] [address]- 8248 Sep, [facility] [place] [facility] [address] [id number] [place] [address]- 2740 Sep, [facility] [place] [facility] [address] [id number] [place] [address]- 2952 Sep, [facility] [place] [facility] [address] [id number] [place] [address]- 3236 Sep, [facility] [place] [facility] [address] [id number] [place] [address]- 0085 Sep, [facility] [place] [facility] [address] [id number] [place] [address]- 6485 Sep, [facility] [place] [facility] [address] [id number] [place] [address]- 0384 Sep, [facility] [place] [facility] [address] [id number] [place] [address]- 4280 Aug, [facility] [place] [facility] [address] [id number] [place] [address]- 5764 Aug, [facility] [place] [facility] [address] [id number] [place] [address] Aug, [facility] [place] [facility] [address] [id number] [place] [address] Jul, [facility] [place] [facility] [address] [id number] [place] [address] Jul, [facility] [place] [facility] [address] [id number] [place] [address] Jul, [facility] [place] [facility] [address] [id number] [place] [address] Jun, [facility] [place] [facility] [address] [id number] [place] [address] Jun, [facility] [place] [facility] [address] [id number] [place] [address] Jun, [facility] [place] [facility] [address] [id number] [place] [address] Jun, [facility] [place] [facility] [address] [facility] [id number] [place] [address] Jun, [facility] [place] [facility] [address] [id number] [place] [address] Jun, [facility] [place] [facility] [address] [id number] [place] [address] May, [facility] [place] [facility] [address] [id number] [place] [address] May, [facility] [place] [facility] [address] [facility] [id number] [place] [address] Apr, [facility] [place] [facility] [address] [id number] [place] [address]- [address] Apr, [facility] [place] [facility] [address] [id number] [place] [address] March, [facility] [address] [id number] [place] [address] Feb, [facility] [place] [facility] [address] [id number] [place] [address] Feb, [facility] [address] [id number] [place] [address]- [address] 16 Feb, 2013 [facility] [place] [facility] [address] [id number] [place] [address]- [address] Feb, [facility] [address] [id number] [place] [address] Jan, [facility] [place] [facility] [address] [id number] [place] [address] Jan, [facility] [place] [facility] [address] [id number] [place] [address]- [address] Jan, [facility] [address] [id number] [place] [address] Jan, [facility] [address] [id number] [place] [address] Jan, [facility] [address] [id number] [place] [address] Dec, [facility] [address] [id number] [place] [address] Nov, [facility] [place] [facility] [address] [id number] [place] [address] Nov, [facility] [place] [facility] [address] [id number] [place] [address]- [address] Oct, [facility] [place] [facility] [address] [id number] [place] [address]- [address] Oct, [facility] [place] [facility] [address] [id number] [place] [address]- [address] Oct, [facility] [place] [facility] [address] [id number] [place] [address]- [address] Oct, [facility] [place] [facility] [address] [id number] [place] [address] Oct, [facility] [place] [facility] [address] [facility] [id number] [place] [address] Oct, [facility] [place] [facility] [address] [id number] [place] [address] Oct, [facility] [place] [facility] [address] [id number] [place] [address] Oct, [facility] [place] [facility] [address] [id number] [place] [address] Aug, [facility] [place] [facility] [address] [facility] [id number] [place] [address] Aug, [facility] [place] [facility] [address] [id number] [place] [address] Aug, [facility] [place] [facility] [address] [id number] [place] [address] Aug, [facility] [place] [facility] [address] [facility] [id number] [place] [address] Aug, [facility] [place] [facility] [address] [id number] [place] [address]- [address] 19 Aug, 2012 [facility] [place] [facility] [address] [id number] [place] [address] 15 Aug, 2012 [facility] [place] [facility] [address] [id number] [place] [address] 27 Jul, 2012 [facility] [place] [facility] [address] [facility] [id number] [address] 27 Jul, 2012 [facility] [place] [facility] [address] [facility] [id number] 27 Jul, 2012 [facility] [place] [facility] [address] [id number] [place] [address] Jul, [facility] [place] [facility] [address] [id number] [place] [address] Jul, [facility] [place] [facility] [address] [id number] [place] [address] Jun, [facility] [place] [facility] [address] [id number] [place] [address] Jun, [facility] [place] [facility] [address] [id number] [place] [address] Jun, [facility] [place] [facility] [address] [id number] [place] [address] May, [facility] [place] [facility] [address] [id number] [place] [address] May, [facility] [place] [facility] [address] [id number] [place] [address] May, [facility] [place] [facility] [address] [id number] [place] [address] May, [facility] [place] [facility] [address] [id number] [place] [address] May, [facility] [place] [facility] [address] [id number] [place] [address] May, [facility] [place] [facility] [address] [id number] [place] [address] May, [facility] [place] [facility] [address] [id number] [place] [address] Apr, [facility] [place] [facility] [address] [id number] [place] [address] Apr, [facility] [place] [facility] [address] [id number] [place] [id number] March, [facility] [place] [facility] [address] [id number] [place] [address] Feb, [facility] [place] [facility] [address] [id number] [place] [address] 30 Jan, 2012 [facility] [place] [facility] [address] [id number] [place] [address] Jan, [facility] [place] [facility] [address] [id number] [place] [address] Jan, [facility] [place] [facility] [address] [id number] [place] [address] Jan, [facility] [place] [facility] [address] [id number] [place] [address] Jan, [facility] [place] [facility] [address] [id number] [place] [address] Jan, [facility] [place] [facility] [address] [id number] [place] [address] Jan, [facility] [place] [facility] [address] [id number] [place] [address] Jan, [facility] [place] [facility] [address] [id number] [place] [address] Jan, [facility] [place] [facility] [address] [id number] [place] [address]647 Jan, [facility] [place] [facility] [address] [id number] [place] [address] Dec, [facility] [place] [facility] [address] [id number] [place] [address] Dec, [facility] [place] [facility] [address] [id number] [place] [address] Dec, [facility] [place] [facility] [address] [id number] [place] [address] Dec, [facility] [place] [facility] [address] [id number] [place] [address] Dec, [facility] [place] [facility] [address] [id number] [address] Dec, [facility] [address] [id number] [address] Dec, [facility] [id number] [address] Dec, [facility] [id number] [address] Nov, [facility] [id number] [address] Nov, [facility] [id number] [place] [address] Nov, [facility] [id number] [address] Oct, [facility] [id number] [place] [address]- [address] Oct, [facility] [id number] [address] Oct, [facility] [id number] Oct, [facility] [address] [id number] [address] Sep, IMMUNIZATIONS No Known Immunizations SOCIAL HISTORY Never Assessed REASON FOR VISIT Controlled Med Refill 11/11/17 PLAN OF CARE VITAL SIGNS MEDICATIONS Medication Instructions Dosage Frequency Start Date End Date Duration Status [place] 10-325 MG Orally every 6 hrs 1 [...]
--- OUTSIDE RECORDS SUMMARY | 2019-01-08 00:08 | XMS REPORT ---
Author Author NALINI GOMEZ Organization [facility] Address [address] [place] [address] Care Team Providers [facility] Manager Name Role Phone NALINI GOMEZ Unavailable PROBLEMS Type Condition ICD9-CM Code MIR82-IF Code Onset Dates Condition Status SNOMED Code Problem Hypothyroidism, unspecified E03.9 Active 46403272 Problem Other chronic pain G89.29 Active 64540672 Problem Hypercholesterolemia 272.0 Active 16278223 Problem Controlled type 2 diabetes mellitus without complication, without long -term current use of insulin E11.9 Active 017390471 Problem Type 2 diabetes mellitus without complications E11.9 Active [id number] ALLERGIES No Information SOCIAL HISTORY Never Assessed PLAN OF CARE VITAL SIGNS MEDICATIONS Unknown Medications RESULTS No Results PROCEDURES No Known procedures IMMUNIZATIONS No Known Immunizations MEDICAL (GENERAL) HISTORY [...]
--- OUTSIDE RECORDS SUMMARY | 2019-01-08 00:08 | XMS REPORT ---
Author Author NALINI GOMEZ Organization [facility] Address [address] [place] [address] Care Team Providers Care Accounting File Clerk Name Role Phone NALINI GOMEZ Unavailable PROBLEMS Type Condition ICD9-CM Code RBK27-RE Code Onset Dates Condition Status SNOMED Code Problem Hypercholesterolemia 272.0 Active 78310629 Problem Panlobular emphysema J43.1 Active 2770933 Problem Hypothyroidism (acquired) E03.9 Active 72687099 Problem Acquired hypothyroidism E03.9 Active 671500812 Problem Controlled type 2 diabetes mellitus without complication, without long -term current use of insulin E11.9 Active 369405050 Problem Type 2 diabetes mellitus without complications E11.9 Active 573751349 Problem Hypothyroidism, unspecified E03.9 Active 80415228 Problem Other chronic pain G89.29 Active 25501710 ALLERGIES No Information ENCOUNTERS Encounter Location Date Diagnosis [place] [address] [address]- [address] May, [place] [address] 84118- 3775 May, [place] [address] [address]69- 6042 May, Viral gastroenteritis A08.4 [place] [address] 90002- 0640 Apr, Acute diffuse otitis externa of left ear H60.312 and Hypothyroidism (acquired) E03.9 [place] [address] [address]777- 2681 Apr, Viral gastroenteritis A08.4 and Acquired hypothyroidism E03.9 [place] [address] 15754- 8699 Apr, Type 2 diabetes mellitus without complications E11.9 and Panlobular emphysema J43.1 [facility] [address] [place] [id number] [place] [address] 81682- 0153 Apr, Viral gastroenteritis A08.4 [facility] [address] [place] [id number] [place] [address] 27935- 3855 March, [facility] [address] [place] [id number] [place] [address] 51675- 0506 March, Viral gastroenteritis A08.4 [facility] [address] [place] [id number] [place] [address] 14733- 6638 Feb, Panlobular emphysema J43.1 [place] [address] [place] [id number] [place] [address] 29206- 9820 Feb, Panlobular emphysema J43.1 [place] [address] [place] [id number] [place] [address] 04729- 7187 Feb, [facility] [address] [place] [id number] [place] [address] 36444- 6335 Feb, [place] [address] [place] [id number] [place] [address] 16019- 6374 Feb, Viral gastroenteritis A08.4 [place] [address] [place] [id number] [place] [address] 22152- 8179 Feb, Head lice B85.0 [place] [address] [place] [id number] [place] [address] 41875- 8003 Feb, Medicare annual wellness visit, initial Z00.00 ; Head lice B85.0 ; Tinea corporis B35.4 and Enlarged lymph node R59.9 [place] [address] [place] [id number] [place] [address] 75519- 4391 Jan, Viral gastroenteritis A08.4 [place] [address] [place] [id number] [place] [address] 86032- 0543 Jan, [facility] [address] [place] [id number] [place] [address] 16872- 4339 Dec, Controlled type 2 diabetes mellitus without complication, without long-term current use of insulin E11.9 [place] [address] [place] [id number] [place] [address] 65090- 0595 Dec, [place] [address] [place] [id number] [place] [address] 74082- 6865 Dec, Viral gastroenteritis A08.4 [place] [address] [place] [id number] [place] [address] 97803- 8727 Nov, Viral gastroenteritis A08.4 [place] [address] [place] [id number] [place] [address] 80674- 6812 Oct, Acute upper respiratory infection, unspecified J06.9 and Other viral agents as the cause of diseases classified elsewhere B97.89 [place] [address] [place] [id number] [place] [address] 51393- 6921 Oct, Viral gastroenteritis A08.4 [place] [address] [place] [id number] [place] [address] 91193- 7886 Oct, Controlled type 2 diabetes mellitus without complication, without long-term current use of insulin E11.9 ; Encounter for immunization Z23 and Acute pain of left foot M79.672 [place] [address] [place] [id number] [place] [address] 06971- 3163 Sep, Viral gastroenteritis A08.4 [place] [address] [place] [id number] [place] [address] 19114- 0526 Aug, Viral gastroenteritis A08.4 [place] [address] [place] [id number] [place] [address] 19087- 9556 Jul, Viral gastroenteritis A08.4 [facility] [address] [place] [id number] [place] [address] 45053 -1856 Jul, Acute nasopharyngitis (common cold) J00 [place] [address] [place] [id number] [place] [address] 96461- 7520 Jun, Viral gastroenteritis A08.4 [place] [address] [address]- 9760 Jun, [place] [address] [place] [id number] [place] [address] 35341- 4586 Jun, Viral gastroenteritis A08.4 [place] [address] [place] [id number] [place] [address] 28400- 1229 May, Patellar tendinitis, left knee M76.52 [place] [address] [place] [id number] [place] [address] 04322- 0924 May, Viral gastroenteritis A08.4 [place] [address] [place] [id number] [place] [address] 11238- 7282 Apr, Viral gastroenteritis A08.4 and Hypothyroidism, unspecified E03.9 [place] [address] [place] [id number] [place] [address] 65666- 2940 Apr, Pain in left knee M25.562 ; Acute left-sided low back pain without sciatica M54.5 and Type 2 diabetes mellitus without complications E11.9 [place] [address] [place] [id number] [place] [address] 23272- 5273 Apr, Viral gastroenteritis A08.4 [place] [address] [place] [id number] [place] [address] 08244- 9607 March, Viral gastroenteritis A08.4 [facility] [id number] [place] [address] 70070 -8349 Feb, Acute pain of left knee M25.562 [place] [id number] [place] [address] 46728- 7814 Feb, Viral gastroenteritis A08.4 [place] [address] [place] [id number] [place] [address] 60689- 2230 Jan, Viral gastroenteritis A08.4 and Controlled type 2 diabetes mellitus without complication, without long-term current use of insulin E11.9 [place] [address] [place] [id number] [place] [address] 70167- 6896 14 Jan, 2017 [place] [id number] [place] [address] 53229- 9273 16 Dec, 2016 Other chronic pain G89.29 ; Pain in left knee M25.562 ; Controlled type 2 diabetes mellitus without complication, without long-term current use of insulin E11.9 and Acute cystitis with hematuria N30.01 [place] [address] [place] [id number] [place] [address] 60519- 2962 Dec, [place] [address] [place] [id number] [place] [address] 27122- 6844 Nov, Type 2 diabetes mellitus without complications E11.9 [place] [address] [place] [id number] [place] [address] 03971- 8579 Nov, [place] [address] [place] [id number] [place] [address] 57847- 6700 Oct, [place] [address] [place] [id number] [place] [address] 73165- 7374 Sep, [place] [address] [place] [id number] [place] [address] 95227- 2702 Aug, [place] [address] [place] [id number] [place] [address] 48956- 8043 Aug, [place] [address] [place] [id number] [place] [address] 62256- 7361 Jul, Controlled type 2 diabetes mellitus without complication, without long-term current use of insulin E11.9 ; Callus of foot L84 and URI, acute J06.9 [place] [id number] [place] [address] 86351- 3575 13 Jul, 2016 [place] [address] [place] [id number] [place] [address] 80244- 5431 Jun, Onychomycosis B35.1 and Nail ingrowing L60.0 [place] [address] [place] [id number] [place] [address] 81471- 1881 Jun, [facility] [id number] [place] [address] 79004- 6214 Jun, Lumbar back pain with radiculopathy affecting left lower extremity M54.17 [facility] [address] [place] [id number] [place] [address] 34799- 1389 Jun, [facility] [address] [place] [id number] [place] [address] 81000- 4673 Jun, Other chronic pain G89.29 [facility] [address] [place] [id number] [place] [address] 78763- 0952 Jun, Other chronic pain G89.29 [facility] [address] [place] [id number] [place] [address] 83752- 3889 Jun, Type 2 diabetes mellitus without complications E11.9 [facility] [address] [place] [id number] [place] [address] 52443- 8352 Jun, [facility] [address] [place] [id number] [place] [address] 73106- 8110 Jun, Onychomycosis B35.1 ; Callus L84 and Rash R21 [facility] [address] [place] [id number] [place] [address] 45751- 0363 May, [facility] [address] [place] [id number] [place] [address] 01422- 2964 May, [facility] [address] [place] [id number] [place] [address] 58921- 3651 May, Type 2 diabetes mellitus without complications E11.9 [facility] [address] [place] [id number] [place] [address] 27756- 6192 May, [facility] [address] [place] [id number] [place] [address] 57676- 7347 Apr, [facility] [address] [place] [id number] [place] [address] 47990- 2173 Apr, Type 2 diabetes mellitus without complications E11.9 ; Acquired hypothyroidism E03.9 ; Callus of foot L84 and Upper respiratory tract infection, unspecified type J06.9 [facility] [address] [place] [id number] [place] [address] 66259- 8086 March, [facility] [address] [place] [id number] [place] [address] 53002- 5736 Feb, [facility] [address] [place] [id number] [place] [address] 95957- 6803 Jan, Diabetes mellitus without mention of complication, type II or unspecified type, not stated as uncontrolled 250.00 [facility] [address] [place] [id number] [place] [address] 70421- 0276 Jan, [facility] [address] 77619- 4462 Jan, Diabetes E11.9 and Hypothyroidism E03.9 [facility] [address] [place] [id number] [place] [address] 89614- 0054 Dec, Diarrhea R19.7 [facility] [address] [place] [id number] [place] [address] 58887- 6312 Dec, [facility] [address] [place] [id number] [place] [address] 59137- 7150 Dec, Hypothyroidism, unspecified E03.9 [facility] [address] [place] [id number] [place] [address] 44184- 6958 Dec, [facility] [address] [place] [id number] [place] [address] 02592- 3828 Dec, Hypothyroidism, unspecified E03.9 [facility] [address] [place] [id number] [place] [address] 30795- 4556 04 Dec, 2015 Diarrhea R19.7 [facility] [address] [place] [id number] [place] [address] 39696- 1048 01 Dec, 2015 Diarrhea R19.7 [facility] [address] [place] [id number] [place] [address] 01946- 4611 Nov, [facility] [address] [place] [id number] [address]- 3980 Nov, [facility] [id number] [place] [address] 95323- 8886 Oct, [facility] [address], [place] [address]- 9014 Sep, Postnasal drip R09.82 [facility] [address] [place] [id number] [place] [address] 84211- 8186 Sep, [facility] [address] [place] [id number] [place] [address] 96360- 8937 Sep, [facility] [address] [place] [id number] [place] [address] 85525- 5149 Aug, [facility] [id number] [place] [address] 753053- 1003 Aug, [facility] [address], [place] [address]- 0037 Jul, Hypothyroidism 244.9 [facility] [address] [place] [id number] [place] [address] 58899- 8292 Jul, Diabetes mellitus without mention of complication, type II or unspecified type, not stated as uncontrolled 250.00 [facility] [address], [place] [address]- 4568 Jul, [facility] [address], [place] [address]- 1378 Jul, [facility] [address], [place] [address]- 3240 Jun, [facility] [address] [place] [id number] [place] [address] 31004- 5298 May, Other chronic pain 338.29 [facility] [address] 4955 May, Other chronic pain 338.29 [facility] [address] [facility] [id number] [address]- 1020 May, [facility] [address] [place] [id number] [place] [address] 19075- 4218 May, [facility] [address], [place] [address]- 6128 Apr, Rash 782.1 ; Hypercholesterolemia 272.0 and Hypothyroidism 244.9 [facility] [address] [facility] [id number] [address]- 6249 Apr, [facility] [address] [place] [id number] [place] [address] 08063- 1849 Apr, [facility] [address] [place] [address] [address]- 6664 March, [facility] [address] [place] [id number] [place] [address] 76193- 7462 Feb, [facility] [address], [place] [address]- 9669 Feb, [facility] [address], [place] [address]- 4950 Jan, [facility] [address], [place] [address]- 3359 Jan, [facility] [address], [place] [address]- 8402 Jan, [facility] [address], [place] [address]- 6409 Jan, [facility] [address] [place] [id number], [place] [address]- 5940 Jan, [facility] [address], [place] [address]- 5650 Jan, [facility] [address] [place] [id number], [place] [address]- 7537 Jan, [facility] [place] [facility] [address] [id number] [place] [address]- 1820 16 Dec, 2014 [facility] [place] [facility] [address] [id number] [place] [address]- 4104 Dec, [facility] [place] [facility] [address] [id number] [place] [address]- 3725 Nov, [facility] [place] [facility] [address] [id number] [place] [address]- 2109 Nov, [facility] [place] [facility] [address] [id number] [place] [address]- 8034 Nov, [facility] [place] [facility] [address] [id number] [place] [address]- 9634 Nov, [facility] [place] [facility] [address] [id number] [place] [address]- 6668 Nov, [facility] [place] [facility] [address] [id number] [place] [address]- 7385 Nov, [facility] [place] [facility] [address] [id number] [place] [address]- 8151 Oct, [facility] [place] [facility] [address] [id number] [place] [address]- 1720 Oct, [facility] [place] [facility] [address] [id number] [place] [address]- 5015 Sep, [facility] [place] [facility] [address] [id number] [place] [address]- 5643 Sep, [facility] [place] [facility] [address] [id number] [place] [address]- 7784 Sep, [facility] [place] [facility] [address] [id number] [place] [address]- 1877 Sep, [facility] [place] [facility] [address] [id number] [place] [address]- 9432 Aug, [facility] [place] [facility] [address] [id number] [place] [address]- 4646 Aug, [facility] [place] [facility] [address] [id number] [place] 7118 Jul, [facility] [place] [facility] [address] [id number] [place] [address]- 1953 Jul, [facility] [place] [facility] [address] [id number] [place] 2633 Jun, [facility] [place] [facility] [address] [id number] [place] [address]- 7095 Jun, [facility] [place] [facility] [address] [id number] [place] [address]- 8955 Jun, [facility] [place] [facility] [address] [id number] [place] [address]- 9072 Jun, [facility] [place] [facility] [address] [id number] [place] [address]- 5302 May, [facility] [place] [facility] [address] [id number] [place] [address]- 3215 May, [facility] [place] [facility] [address] [id number] [place] [address]- 4754 May, [facility] [place] [facility] [address] [id number] [place] [address]- 4465 May, [facility] [place] [facility] [address] [id number] [place] [address]- 4674 Apr, [facility] [place] [facility] [address] [id number] [place] [address]- 8184 Apr, [facility] [place] [facility] [address] [id number] [place] [address]- 5476 March, [facility] [place] [facility] [address] [id number] [place] [address]- 9397 March, [facility] [place] [facility] [address] [id number] [place] [address]- 3798 March, [facility] [place] [facility] [address] [id number] [place] [address]- 0929 March, [facility] [address] [id number] [place] [address]- 0453 March, [facility] [place] [facility] [address] [id number] [place] [address]- 5706 March, [facility] [address] [id number] [place] [address]- 4426 Feb, [facility] [place] [facility] [address] [id number] [place] [address]- 7181 Feb, [facility] [address] [id number] [place] [address]- 9229 Feb, [facility] [address] [id number] [place] [address]- 6251 Feb, [facility] [place] [facility] [address] [id number] [place] [address]- 9913 Feb, [facility] [address] [id number] [place] [address]- 8155 Feb, [facility] [place] [facility] [address] [id number] [place] [address]- 5436 Feb, [facility] [address] [id number] [place] [address]- 9439 Feb, [facility] [place] [facility] [address] [id number] [place] [address]- 5332 Jan, [facility] [place] [facility] [address] [id number] [place] [address]- 0882 Jan, [facility] [place] [facility] [address] [id number] [place] [address]- 9723 Jan, [facility] [place] [facility] [address] [id number] [place] [address]- 2442 Jan, [facility] [place] [facility] [address] [id number] [place] [address]- 7233 Jan, [facility] [place] [facility] [address] [id number] [place] [address]- 3599 13 Jan, 2014 [facility] [place] [facility] [address] [id number] [place] [address]- 1152 Jan, [facility] [place] [facility] [address] [id number] [place] [address]- 3468 Jan, [facility] [place] [facility] [address] [id number] [place] [address]- 1646 Jan, [facility] [place] [facility] [address] [id number] [place] [address]- 8459 Dec, [facility] [place] [facility] [address] [id number] [place] [address] Dec, [facility] [place] [facility] [address] [id number] [place] [address] Nov, [facility] [place] [facility] [address] [id number] [place] [address] Nov, [facility] [place] [facility] [address] [id number] [place] [address] Nov, [facility] [place] [facility] [address] [id number] [place] [address] Nov, [facility] [place] [facility] [address] [id number] [place] [address] Nov, [facility] [place] [facility] [address] [id number] [place] [address] Nov, [facility] [place] [facility] [address] [id number] [place] [address] Oct, [facility] [place] [facility] [address] [id number] [place] [address] Oct, [facility] [place] [facility] [address] [id number] [place] [address] Sep, [facility] [place] [facility] [address] [id number] [place] [address] Sep, [facility] [place] [facility] [address] [id number] [place] [address] Sep, [facility] [place] [facility] [address] [id number] [place] [address] Sep, [facility] [place] [facility] [address] [id number] [place] [address] Sep, [facility] [place] [facility] [address] [id number] [place] [address] Sep, [facility] [place] [facility] [address] [id number] [place] [address] Sep, [facility] [place] [facility] [address] [id number] [place] [address] Sep, [facility] [place] [facility] [address] [id number] [place] [address] Aug, [facility] [place] [facility] [address] [id number] [place] [address] Aug, [facility] [place] [facility] [address] [id number] [place] [address] Aug, [facility] [place] [facility] [address] [id number] [place] [address] Jul, [facility] [place] [facility] [address] [id number] [place] [address] Jul, [facility] [place] [facility] [address] [id number], [place] [address] Jul, [facility] [place] [facility] [address] [id number] [place] [address] Jun, [facility] [place] [facility] [address] [id number] [place] [address] Jun, [facility] [place] [facility] [address] [id number], [place] [address] Jun, [facility] [place] [facility] [address] [id number] [place] [address] Jun, [facility] [place] [facility] [address] [id number] [place] [address] Jun, [facility] [place] [facility] [address] [id number] [place] [address] Jun, [facility] [place] [facility] [address] [id number] [place] [address]- [address] May, [facility] [place] [facility] [address] [id number] [place] [address] May, [facility] [place] [facility] [address] [id number] [place] [address] Apr, [facility] [place] [facility] [address] [id number] [place] [address] Apr, [facility] [place] [facility] [address] [id number] [place] [address] March, [facility] [address] [id number] [place] [address] Feb, [facility] [place] [facility] [address] [id number] [place] [address] Feb, [facility] [place] [facility] [address] [id number] [place] [address] Feb, [facility] [place] [facility] [address] [id number] [place] [address] Feb, [facility] [place] [facility] [address] [id number] [place] [address] Jan, [facility] [place] [facility] [address] [id number] [place] [address] Jan, [facility] [place] [facility] [address] [id number] [place] [address] Jan, [facility] [place] [facility] [address] [id number] [place] [address] Jan, [facility] [place] [facility] [address] [id number] [place] [address] Jan, [facility] [place] [facility] [address] [id number] [place] [address]- [address] Dec, [facility] [place] [facility] [address] [facility] [id number] [place] [address] Nov, [facility] [place] [facility] [address] [id number] [place] [address] Nov, [facility] [place] [facility] [address] [id number] [place] [address] Oct, [facility] [place] [facility] [address] [id number] [place] [address] Oct, [facility] [place] [facility] [address] [facility] [id number] [place] [address] Oct, [facility] [place] [facility] [address] [id number], [place] [address] Oct, [facility] [place] [facility] [address] [id number] [place] [address] Oct, [facility] [place] [facility] [address] [facility] [id number] [place] [address] Oct, [facility] [place] [facility] [address] [id number], [place] [address] Oct, [facility] [place] [facility] [address] [id number], [place] [address] Oct, [facility] [place] [facility] [address] [id number] [place] [address] Aug, [facility] [place] [facility] [address] [facility] [id number], [place] [address] Aug, [facility] [place] [facility] [address] [facility] [id number], [place] [address] Aug, [facility] [place] [facility] [address] [id number] [place] [address] 26 Aug, 2012 [facility] [address] [id number] [place] [address]66 19 Aug, 2012 [facility] [place] [facility] [address] [id number] [place] [address] 19 Aug, 2012 [facility] [address] [id number] [place] [address] 15 Aug, 2012 [facility] [place] [facility] [address] [id number] [place] [address] 27 Jul, 2012 [facility] [place] [facility] [address] [id number] [place] [address] 27 Jul, 2012 [facility] [place] [facility] [address] [id number] [place] [address] 92[address] 27 Jul, 2012 [facility] [place] [facility] [address] [id number] [place] [address] 27 Jul, 2012 [facility] [address] [id number] [place] [address] 03 Jul, 2012 [facility] [place] [facility] [address] [id number] [place] [address] 1992 28 Jun, 2012 [facility] [place] [facility] [address] [id number] [place] [address] Jun, [facility] [place] [facility] [address] [id number] [place] [address] Jun, [facility] [place] [facility] [address] [id number] [place] [address] 4260 May, [facility] [place] [facility] [address] [id number] [place] [address] 280[address] May, [facility] [place] [facility] [address] [id number] [place] [address] May, [facility] [place] [facility] [address] [id number] [place] [address] May, [facility] [place] [facility] [address] [id number] [place] [address]778 23 May, 2012 [facility] [place] [facility] [address] [id number] [place] [address]226 May, [facility] [place] [facility] [address] [id number] [place] [address] May, [facility] [place] [facility] [address] [id number] [place] [address] Apr, [facility] [place] [facility] [address] [id number] [place] [address] Apr, [facility] [place] [facility] [address] [id number] [place] [address] March, [facility] [place] [facility] [address] [id number] [place] [address] Feb, [facility] [place] [facility] [address] [id number] [place] [address] 30 Jan, 2012 [facility] [place] [facility] [address] [id number] [place] [address] 1668 Jan, [facility] [place] [facility] [address] [id number] [place] [address] Jan, [facility] [place] [facility] [address] [id number] [place] [address] Jan, [facility] [place] [facility] [address] [id number] [place] [address] Jan, [facility] [place] [facility] [address] [id number] [place] [address] Jan, [facility] [place] [facility] [address] [id number] [place] [address] Jan, [facility] [place] [facility] [address] [id number] [place] [address] Jan, [facility] [place] [facility] [address] [id number] [place] [address] Jan, [facility] [address] [id number] [place] [address] 8099 Jan, [facility] [place] [facility] [address] [id number] [place] [address] Dec, [facility] [place] [facility] [address] [id number] [place] [address]- 4686 Dec, [facility] [place] [facility] [address] [id number] [place] [address]- 9818 Dec, [facility] [place] [facility] [address] [id number] [place] [address]684 Dec, [facility] [place] [facility] [address] [id number] [place] [address] 9389 Dec, [facility] [address] [id number] [place] [address]- [address] Dec, [facility] [address] [id number] [place] [address]- 4177 Dec, [facility] [address] [id number] [place] [address] Dec, [facility] [address] [id number] [place] [address]841 Nov, [facility] [place] [facility] [address] [id number] [place] [address] 2546 Nov, [facility] [place] [facility] [address] [id number] [place] [address] 2029 Nov, [facility] [place] [facility] [address] [id number] [place] [address]- 9424 Oct, [facility] [place] [facility] [address] [id number] [place] [address] 2656 Oct, [facility] [place] [facility] [address] [id number] [place] [address]- 74[address] Oct, [facility] [address] [facility] [id number] [place] [address] Oct, [facility] [address] [facility] [id number] [place] [address] Sep, IMMUNIZATIONS No Known Immunizations SOCIAL HISTORY Never Assessed REASON FOR VISIT Controlled Med Refill 01/04/18 PLAN OF CARE VITAL SIGNS MEDICATIONS Medication Instructions Dosage Frequency Start Date End Date Duration Status Goodyear 10-325 MG Orally every 6 hrs 1 tablet as needed 6h Dec, 28 days Active RESULTS No Results [...] intraocular lens prosthesis Hospitalization History admitted to [facility] for bronchitis then went into cardiac arrest and was resuscitated. She was in the hospital for 7 days. 2012 Hospitalization History surgeries
--- OUTSIDE RECORDS SUMMARY | 2019-01-08 00:10 | XMS REPORT ---
Author Author NALINI GOMEZ Organization [facility] Address [address] [place] [address] Care Team Providers Care Plant Health Manager Name Role Phone NALINI GOMEZ Unavailable PROBLEMS Type Condition ICD9-CM Code OTE01-DK Code Onset Dates Condition Status SNOMED Code Problem Hypercholesterolemia 272.0 Active 70910977 Problem Panlobular emphysema J43.1 Active 1361967 Problem Hypothyroidism (acquired) E03.9 Active 13946454 Problem Acquired hypothyroidism E03.9 Active 292274060 Problem Controlled type 2 diabetes mellitus without complication, without long -term current use of insulin E11.9 Active 085987038 Problem Type 2 diabetes mellitus without complications E11.9 Active 011986293 Problem Hypothyroidism, unspecified E03.9 Active 54636072 Problem Other chronic pain G89.29 Active 36829228 ALLERGIES No Information ENCOUNTERS Encounter Location Date Diagnosis [place] [address] [address]- 9[address] May, [place] [address] 98193- 9430 Apr, Acute diffuse otitis externa of left ear H60.312 and Hypothyroidism (acquired) E03.9 [facility] [address] 34847- 6261 Apr, Viral gastroenteritis A08.4 and Acquired hypothyroidism E03.9 [place] [address] [place] [id number] [place] [address] 73287- 1093 Apr, Type 2 diabetes mellitus without complications E11.9 and Panlobular emphysema J43.1 [facility] [address] 17822- 3626 Apr, Viral gastroenteritis A08.4 [place] [address] 29904- 7660 March, [facility] [address] [place] [id number] [place] [address] 61908- 8567 March, Viral gastroenteritis A08.4 [facility] [address] [place] [id number] [place] [address] 99291- 5112 Feb, Panlobular emphysema J43.1 [place] [address] [id number] [place] [address] 90836- 1618 Feb, Panlobular emphysema J43.1 [place] [address] [place] [id number] [place] [address] 84781- 7804 Feb, [place] [address] [id number] [place] [address] 71229- 3224 Feb, [place] [address] [id number] [place] [address] 11587- 5884 Feb, Viral gastroenteritis A08.4 [place] [address] [id number] [place] [address] 29533- 7101 Feb, Head lice B85.0 [place] [address] [id number] [place] [address] 12675- 6347 Feb, Medicare annual wellness visit, initial Z00.00 ; Head lice B85.0 ; Tinea corporis B35.4 and Enlarged lymph node R59.9 [place] [address] [id number] [place] [address] 26700- 1526 Jan, Viral gastroenteritis A08.4 [place] [address] [id number] [place] [address] 90254- 7133 Jan, [place] [address] [id number] [place] [address] 65313- 8901 Dec, Controlled type 2 diabetes mellitus without complication, without long-term current use of insulin E11.9 [place] [address] [id number] [place] [address] 90481- 8794 Dec, [place] [address] [place] [id number] [place] [address] 21464- 8104 Dec, Viral gastroenteritis A08.4 [place] [address] [id number] [place] [address] 50409- 5425 Nov, Viral gastroenteritis A08.4 [place] [address] [id number] [place] [address] 47873- 1288 Oct, Acute upper respiratory infection, unspecified J06.9 and Other viral agents as the cause of diseases classified elsewhere B97.89 [place] [address] [id number] [place] [address] 69615- 6072 Oct, Viral gastroenteritis A08.4 [place] [address] [id number] [place] [address] 70080- 0809 Oct, Controlled type 2 diabetes mellitus without complication, without long-term current use of insulin E11.9 ; Encounter for immunization Z23 and Acute pain of left foot M79.672 [place] [address] [id number] [place] [address] 77418- 4670 Sep, Viral gastroenteritis A08.4 [place] [address] [place] [id number] [place] [address] 57117- 0923 Aug, Viral gastroenteritis A08.4 [place] [address] [place] [id number] [place] [address] 14751- 6681 Jul, Viral gastroenteritis A08.4 [facility] [address] [place] [id number] [place] [address] 36949 -1019 Jul, Acute nasopharyngitis (common cold) J00 [place] [address] [place] [id number] [place] [address] 54513- 3320 Jun, Viral gastroenteritis A08.4 [facility] [address] [place] [id number] [place] [address] 45870- 9330 Jun, [place] [address] [place] [id number] [place] [address] 74968- 0401 Jun, Viral gastroenteritis A08.4 [place] [address] [address]- 4981 May, Patellar tendinitis, left knee M76.52 [place] [address] [place] [id number] [place] [address] 13796- 3478 05 May, 2017 Viral gastroenteritis A08.4 [place] [address] [place] [id number] [place] [address] 50065- 3759 16 Apr, 2017 Viral gastroenteritis A08.4 and Hypothyroidism, unspecified E03.9 [place] [address] [place] [id number] [place] [address] 67452- 8834 15 Apr, 2017 Pain in left knee M25.562 ; Acute left-sided low back pain without sciatica M54.5 and Type 2 diabetes mellitus without complications E11.9 [place] [address] [place] [id number] [place] [address] 54821- 0409 07 Apr, 2017 Viral gastroenteritis A08.4 [place] [address] [place] [id number] [place] [address] 92414- 8527 March, Viral gastroenteritis A08.4 [facility] [address] [place] [id number] [place] [address] 93758 -1586 Feb, Acute pain of left knee M25.562 [place] [id number] [place] [address] 51350- 5664 Feb, Viral gastroenteritis A08.4 [place] [address] [place] [id number] [place] [address] 30818- 8783 16 Jan, 2017 Viral gastroenteritis A08.4 and Controlled type 2 diabetes mellitus without complication, without long-term current use of insulin E11.9 [place] [address] [place] [id number] [place] [address] 86834- 0229 14 Jan, 2017 [place] [address] [place] [id number] [place] [address] 65669- 9090 16 Dec, 2016 Other chronic pain G89.29 ; Pain in left knee M25.562 ; Controlled type 2 diabetes mellitus without complication, without long-term current use of insulin E11.9 and Acute cystitis with hematuria N30.01 [place] [address] [place] [id number] [place] [address] 78042- 8846 Dec, [facility] [address] [place] [id number] [place] [address] 56294- 7982 Nov, Type 2 diabetes mellitus without complications E11.9 [facility] [address] [place] [id number] [place] [address] 96104- 3317 Nov, [place] [address] [place] [id number] [place] [address] 68225- 1875 Oct, [place] [address] [place] [id number] [place] [address] 30785- 3473 Sep, [place] [address] [place] [id number] [place] [address] 48912- 3656 Aug, [place] [address] [place] [id number] [place] [address] 03727- 0501 Aug, [place] [address] [place] [id number] [place] [address] 65038- 8443 Jul, Controlled type 2 diabetes mellitus without complication, without long-term current use of insulin E11.9 ; Callus of foot L84 and URI, acute J06.9 [place] [address] [place] [id number] [place] [address] 42398- 9372 Jul, [place] [address] [place] [id number] [place] [address] 71890- 3224 Jun, Onychomycosis B35.1 and Nail ingrowing L60.0 [place] [address] [place] [id number] [place] [address] 31776- 1048 Jun, [place] [address] [place] [id number] [place] [address] 31070- 7714 Jun, Lumbar back pain with radiculopathy affecting left lower extremity M54.17 [place] [address] [place] [address]- 1375 Jun, [facility] [address], [place] [address]- 7544 Jun, Other chronic pain G89.29 [facility] [address] [place] [id number] [address]- 5981 Jun, Other chronic pain G89.29 [facility] [address] [place] [id number] [place] [address] 09600- 7238 Jun, Type 2 diabetes mellitus without complications E11.9 [facility] [address] [place] [id number] [place] [address] 88840- 2219 Jun, [facility] [address] [place] [id number] [place] [address] 91677- 5718 Jun, Onychomycosis B35.1 ; Callus L84 and Rash R21 [facility] [address] [place] [id number] [place] [address] 43022- 1897 May, [facility] [id number] [place] [address] 52188- 8306 May, [facility] [address] [place] [address] 65608- 5811 May, Type 2 diabetes mellitus without complications E11.9 [facility] [address] [address]- 0992 May, [facility] [address], [place] [address]- 1316 Apr, [facility] [address], [place] [address]- 8083 Apr, Type 2 diabetes mellitus without complications E11.9 ; Acquired hypothyroidism E03.9 ; Callus of foot L84 and Upper respiratory tract infection, unspecified type J06.9 [facility] [address], [place] [address]- 0533 March, [facility] [address] [place] [id number] [place] [address] 01346- 4232 Feb, [facility] [address] [place] [id number] [place] [address] 59268- 9604 Jan, Diabetes mellitus without mention of complication, type II or unspecified type, not stated as uncontrolled 250.00 [facility] [address] [place] [id number] [place] [address] 59822- 4743 Jan, [facility] [address] [place] [id number] [place] [address] 02691- 9389 Jan, Diabetes E11.9 and Hypothyroidism E03.9 [facility] [address] [place] [id number] [place] [address] 07293- 8754 Dec, Diarrhea R19.7 [facility] [address] [place] [id number] [place] [address] 14606- 4003 Dec, [facility] [address] [place] [id number] [place] [address] 35424- 5432 Dec, Hypothyroidism, unspecified E03.9 [facility] [address] [place] [id number] [place] [address] 43507- 2710 Dec, [facility] [address] [place] [id number] [place] [address] 68771- 8296 Dec, Hypothyroidism, unspecified E03.9 [facility] [address] [place] [id number] [place] [address] 18427- 9073 Dec, Diarrhea R19.7 [facility] [address] [place] [id number] [place] [address] 96268- 8858 Dec, Diarrhea R19.7 [facility] [address] [place] [id number] [place] [address] 967411- 3559 Nov, [facility] [address] [place] [id number] [place] [address] 61394060- 3676 Nov, [facility] [address] [place] [id number] [place] [address] 11029- 4152 Oct, [facility] [address], [place] [address]- 6439 Sep, Postnasal drip R09.82 [facility] [address] [place] [address] 597240- 0561 Sep, [facility] [address] [place] [id number] [place] [address] 88692- 4385 Sep, [facility] [address] [place] [id number] [place] [address] 294296- 1608 Aug, [facility] [address] [place] [id number] [place] [address] 193866- 1724 Aug, [facility] [address] [place] [id number] [place] [address] 29961- 0649 Jul, Hypothyroidism 244.9 [facility] [address] [place] [id number] [place] [address] 53166- 0801 Jul, Diabetes mellitus without mention of complication, type II or unspecified type, not stated as uncontrolled 250.00 [facility] [address], [place] [address]- 1930 Jul, [facility] [address] [place] [address] 25632- 1049 Jul, [facility] [address], [place] [address]- 3737 Jun, [facility] [address] [place] [address] 61290- 3710 May, Other chronic pain 338.29 [facility] [address], [place] [address]- 6876 May, Other chronic pain 338.29 [facility] [address] [place] [address] 91617- 0319 May, [facility] [address], [place] [address]- 7406 May, [facility] [address] [facility] [id number] [place] [address]- 2898 15 Apr, 2015 Rash 782.1 ; Hypercholesterolemia 272.0 and Hypothyroidism 244.9 [facility] [address] [facility] [id number] [place] [address]- 6823 12 Apr, 2015 [facility] [address] [place] [address]- 9174 Apr, [facility] [address] [facility] [id number] [address]- 1979 March, [facility] [address] [place] [id number] [place] [address]- 2694 Feb, [facility] [address] [place] [address]- 5915 Feb, [facility] [address] [place] [address]- 0124 Jan, [facility] [address] [place] [id number] [place] [address]- 3212 Jan, [facility] [address] [place] [id number] [place] [address]- 3895 Jan, [facility] [address] [place] [address]- 0494 Jan, [facility] [address], [place] [address]- 2133 Jan, [facility] [place] [facility] [address] [place] [id number] [address]- 4113 Jan, [facility] [address] [place] [id number] [place] [address]- 3890 Jan, [facility] [place] [facility] [address] [place] [id number] [address]- 2046 16 Dec, 2014 [facility] [place] [facility] [address] [place] [id number] [address]- 0566 Dec, [facility] [address] [facility] [id number] [place] [address]- 0508 Nov, [facility] [address] [id number] [place] [address]- 8085 Nov, [facility] [place] [facility] [address] [id number] [place] [address]- 5546 Nov, [facility] [address] [id number] [place] [address]- 6482 Nov, [facility] [place] [facility] [address] [id number] [place] [address]- 4703 Nov, [facility] [address] [id number] [place] [address]- 6145 Nov, [facility] [address] [id number] [place] [address]- 3903 Oct, [facility] [place] [facility] [address] [id number] [place] [address]- 4219 Oct, [facility] [address] [id number] [place] [address]- 6679 Sep, [facility] [place] [facility] [address] [id number] [place] [address]- 2249 Sep, [facility] [address] [id number] [place] [address]- 9615 Sep, [facility] [place] [facility] [address] [id number] [place] [address]- 0753 Sep, [facility] [place] [facility] [address] [id number] [place] [address]- 1168 Aug, [facility] [place] [facility] [address] [id number] [place] 3612 Aug, [facility] [place] [facility] [address] [id number] [place] [address]- 2768 Jul, [facility] [place] [facility] [address] [id number] [place] [address]- 4051 Jul, [facility] [place] [facility] [address] [id number] [place] [address]- 6367 Jun, [facility] [place] [facility] [address] [id number] [place] [address]- 5739 Jun, [facility] [place] [facility] [address] [id number] [place] [address]- 3775 Jun, [facility] [place] [facility] [address] [id number] [place] [address]- 9489 Jun, [facility] [place] [facility] [address] [id number] [place] [address]- 1694 May, [facility] [place] [facility] [address] [id number] [place] [address]- 2588 May, [facility] [place] [facility] [address] [id number] [place] [address]- 7117 May, [facility] [place] [facility] [address] [id number] [place] [address]- 7991 May, [facility] [place] [facility] [address] [id number] [place] [address]- 5491 Apr, [facility] [place] [facility] [address] [id number] [place] [address]- 1759 Apr, [facility] [place] [facility] [address] [id number] [place] [address]- 3741 March, [facility] [place] [facility] [address] [id number] [place] [address]- 1890 March, [facility] [place] [facility] [address] [id number] [place] [address]- 0257 March, [facility] [place] [facility] [address] [id number] [place] 4771 March, [facility] [place] [facility] [address] [id number] [place] [address]- 1560 March, [facility] [place] [facility] [address] [id number] [place] [address]- 7163 March, [facility] [place] [facility] [address] [id number] [place] [address]- 6694 Feb, [facility] [place] [facility] [address] [id number] [place] [address]- 5571 Feb, [facility] [place] [facility] [address] [id number] [place] [address]- 8741 Feb, [facility] [place] [facility] [address] [id number] [place] [address]- 9640 Feb, [facility] [place] [facility] [address] [id number] [place] [address]- 0279 Feb, [facility] [place] [facility] [address] [id number] [place] [address]- 3552 Feb, [facility] [place] [facility] [address] [id number] [place] [address]- 7606 Feb, [facility] [place] [facility] [address] [id number] [place] [address]- 7406 Feb, [facility] [place] [facility] [address] [id number] [place] [address]- 7404 Jan, [facility] [place] [facility] [address] [id number] [place] [address]- 0941 Jan, [facility] [place] [facility] [address] [id number] [place] [address]- 3608 Jan, [facility] [place] [facility] [address] [id number] [place] [address]- 2571 Jan, [facility] [place] [facility] [address] [id number] [place] [address]- 6493 Jan, [facility] [place] [facility] [address] [id number] [place] [address]- 6519 Jan, [facility] [place] [facility] [address] [id number] [place] [address]- 0993 Jan, [facility] [place] [facility] [address] [id number] [place] [address]- 3746 Jan, [facility] [place] [facility] [address] [id number] [place] [address]- 5000 Jan, [facility] [place] [facility] [address] [id number] [place] [address]- 1440 Dec, [facility] [place] [facility] [address] [id number] [place] [address]- 0073 Dec, [facility] [place] [facility] [address] [id number] [place] [address]- 7750 Nov, [facility] [place] [facility] [address] [id number] [place] [address]- 7498 Nov, [facility] [place] [facility] [address] [id number] [place] [address]- 3023 Nov, [facility] [place] [facility] [address] [id number] [place] [address]- 5682 Nov, [facility] [place] [facility] [address] [id number] [place] [address] Nov, [facility] [place] [facility] [address] [id number] [place] [address] Nov, [facility] [place] [facility] [address] [id number] [place] [address] Oct, [facility] [place] [facility] [address] [id number] [place] [address] Oct, [facility] [place] [facility] [address] [id number] [place] [address] Sep, [facility] [place] [facility] [address] [id number] [place] [address] Sep, [facility] [place] [facility] [address] [id number] [place] [address] Sep, [facility] [place] [facility] [address] [id number] [place] [address] Sep, [facility] [place] [facility] [address] [id number] [place] [address] Sep, [facility] [place] [facility] [address] [id number] [place] [address] Sep, [facility] [place] [facility] [address] [id number] [place] [address] Sep, [facility] [place] [facility] [address] [id number] [place] [address] Sep, [facility] [place] [facility] [address] [id number] [place] [address] Aug, [facility] [place] [facility] [address] [id number] [place] [address] Aug, [facility] [place] [facility] [address] [id number] [place] [address] 2016 Aug, [facility] [place] [facility] [address] [id number] [place] [address] Jul, [facility] [place] [facility] [address] [id number] [place] [address] Jul, [facility] [place] [facility] [address] [id number] [place] [address] Jul, [facility] [place] [facility] [address] [id number] [address] Jun, [facility] [place] [facility] [address] [id number], [place] [address] Jun, [facility] [place] [facility] [address] [id number] [place] [address] Jun, [facility] [place] [facility] [address] [id number] [place] [address] Jun, [facility] [place] [facility] [address] [id number] [place] [address] Jun, [facility] [place] [facility] [address] [id number] [place] [address] Jun, [facility] [address] [id number] [place] [address] May, [facility] [address] [id number] [place] [address] May, [facility] [address] [id number] [place] [address] Apr, [facility] [address] [id number] [place] [address] Apr, [facility] [address] [id number] [place] [address] March, [facility] [address] [id number] [place] [address] Feb, [facility] [address] [id number] [place] [address] Feb, [facility] [address] [id number] [place] [address] 16 Feb, 2013 [facility] [address] [id number] [place] [address] Feb, [facility] [address] [id number] [place] [address] Jan, [facility] [address] [id number] [place] [address] Jan, [facility] [facility] [address] [id number] [place] [address] Jan, [facility] [address] [id number] [place] [address] Jan, [facility] [address] [id number] [place] [address] 05 Jan, 2013 [facility] [address] [id number] [place] [address] Dec, [facility] [place] [facility] [address] [id number] [place] [address] Nov, [facility] [place] [facility] [address] [id number] [place] [address] Nov, [facility] [place] [facility] [address] [id number] [place] [address] Oct, [facility] [place] [facility] [address] [id number] [place] [address] Oct, [facility] [place] [facility] [address] [id number] [place] [address] Oct, [facility] [place] [facility] [address] [id number] [place] [address] Oct, [facility] [place] [facility] [address] [id number] [place] [address] Oct, [facility] [place] [facility] [address] [id number] [address] Oct, [facility] [place] [facility] [address] [id number] [place] [address] Oct, [facility] [place] [facility] [address] [facility] [id number][place] [address] Oct, [facility] [place] [facility] [address] [facility] [id number][place] [address] Aug, [facility] [place] [facility] [address] [id number], [place] [address] Aug, [facility] [place] [facility] [address] [id number], [place] [address] Aug, [facility] [place] [facility] [address] [id number], [place] [address] Aug, [facility] [place] [facility] [address] [facility] [id number], [place] [address] Aug, [facility] [place] [facility] [address] [id number][place] [address] Aug, [facility] [place] [facility] [address] [id number] [place] [address] 15 Aug, 2012 [facility] [place] [facility] [address] [id number] [place] [address] 27 Jul, 2012 [facility] [place] [facility] [address] [id number] [place] [address] 27 Jul, 2012 [facility] [place] [facility] [address] [id number] [place] [address] 27 Jul, 2012 [facility] [place] [facility] [address] [id number] [place] [address] 27 Jul, 2012 [facility] [place] [facility] [address] [id number] [place] [address] Jul, [facility] [place] [facility] [address] [id number] [place] [address] Jun, [facility] [place] [facility] [address] [id number] [place] [address] Jun, [facility] [place] [facility] [address] [id number] [place] [address] Jun, [facility] [place] [facility] [address] [facility] [id number] [place] [address] May, [facility] [place] [facility] [address] [id number] [place] [address] May, [facility] [place] [facility] [address] [id number], [place] [address] May, [facility] [place] [facility] [address] [id number] [place] [address]38 May, [facility] [place] [facility] [address] [facility] [id number] [place] [address] May, [facility] [place] [facility] [address] [facility] [id number] [place] [address] 4[address] May, [facility] [place] [facility] [address] [id number] [place] [address] May, [facility] [place] [facility] [address] [id number] [place] [address] Apr, [facility] [place] [facility] [address] [id number] [place] [address] Apr, [facility] [place] [facility] [address] [id number] [place] [address] March, [facility] [place] [facility] [address] [id number] [place] [address] Feb, [facility] [place] [facility] [address] [id number] [place] [address] 30 Jan, 2012 [facility] [place] [facility] [address] [id number] [place] [address] Jan, [facility] [place] [facility] [address] [id number] [place] [address] Jan, [facility] [place] [facility] [address] [id number] [place] [address] Jan, [facility] [place] [facility] [address] [id number] [place] [address] Jan, [facility] [place] [facility] [address] [id number] [place] [address] Jan, [facility] [place] [facility] [address] [id number] [place] [address] Jan, [facility] [place] [facility] [address] [id number] [place] [address] 25[address] Jan, [facility] [place] [facility] [address] [id number] [place] [address] Jan, [facility] [place] [facility] [address] [id number] [place] [address] 25[address] Jan, [facility] [place] [facility] [address] [id number] [place] [address] Dec, [facility] [address] [facility] [id number] [place] [address] Dec, [facility] [address] [facility] [id number] [place] [address] Dec, [facility] [id number] [place] [address] Dec, [facility] [address] [facility] [id number] [place] [address] Dec, [facility] [address] [facility] [id number] [place] [address] Dec, [facility] [id number] [place] [address] Dec, [facility] [id number] [place] [address] Dec, [facility] [id number] [place] [address] Nov, [facility] [id number] [address] Nov, [facility] [id number] [place] [address] Nov, [facility] [id number], [place] [address] Oct, [facility] [id number], [place] [address] Oct, [facility] [id number], [place] [address] Oct, [facility] [id number], [place] [address] Oct, [facility] [id number], [place] [address] 08 Sep, 2011 IMMUNIZATIONS No Known Immunizations SOCIAL HISTORY Never Assessed REASON FOR VISIT Controlled Med Refill PLAN OF CARE VITAL SIGNS MEDICATIONS Medication Instructions Dosage Frequency Start Date End Date Duration Status Patriot 10-325 MG Orally every 6 hrs 1 tablet as needed 6h Nov, 28 days Active RESULTS No Results [...]
--- OUTSIDE RECORDS SUMMARY | 2019-01-08 00:10 | XMS REPORT ---
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 Name Role Phone NALINI GOMEZ Unavailable PROBLEMS Type Condition ICD9-CM Code [id number] Code Onset Dates Condition Status SNOMED Code Problem Hypothyroidism, unspecified E03.9 Active 71085225 Problem Other chronic pain G89.29 Active 06594969 Problem Hypercholesterolemia 272.0 Active 51713729 Problem Controlled type 2 diabetes mellitus without complication, without long -term current use of insulin E11.9 Active 215632781 Problem Type 2 diabetes mellitus without complications E11.9 Active 649551359 ALLERGIES No Information SOCIAL HISTORY Never Assessed PLAN OF CARE VITAL SIGNS MEDICATIONS Medication Instructions Dosage Frequency Start Date End Date Duration Status Beth[place]hem 10-325 MG Orally every 6 hrs 1 [...] lens prosthesis Hospitalization History admitted to [facility] for bronchitis then went into cardiac arrest and was resuscitated. She was in the hospital for 7 days. 2012 Hospitalization History surgeries
--- OUTSIDE RECORDS SUMMARY | 2019-01-08 00:11 | XMS REPORT ---
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 Role Phone NALINI GOMEZ Unavailable PROBLEMS Type Condition ICD9-CM Code [id number] Code Onset Dates Condition Status SNOMED Code Problem Hypothyroidism, unspecified E03.9 Active 09470974 Problem Other chronic pain G89.29 Active 50183976 Problem Hypercholesterolemia 272.0 Active 24189244 Problem Controlled type 2 diabetes mellitus without complication, without long -term current use of insulin E11.9 Active 780683738 Problem Type 2 diabetes mellitus without complications E11.9 Active 481862050 ALLERGIES Substance Reaction Event Type Date Status Rocephin Unknown Drug Allergy Jan, Active Penicillin V Potassium Unknown Drug Allergy Jan, Active Nsaids (non-steroidal Anti-inflammatory Drug) renal insuffiency Non Drug Allergy Jan, Active SOCIAL HISTORY Never Assessed PLAN OF CARE VITAL SIGNS Height 64 in 2017-02-04 Weight 214.3 lbs 2017-02-04 Temperature 97.7 degrees Fahrenheit 2017-02-04 Heart Rate 72 bpm 2017-02-04 Respiratory Rate 20 2017-02-04 BMI 36.78 kg/m2 2017-02-04 Blood pressure systolic 124 mmHg 2017-02-04 Blood pressure diastolic 80 mmHg 2017-02-04 MEDICATIONS Medication Instructions Dosage Frequency Start Date End Date Duration Status Crestor 40 mg Orally Once a day 1 tablet 24h 90 Active Cozaar 50 mg Orally Once a day 1 tablet 24h 30 Active Levothyroxine Sodium 125 mcg Orally Once a day 1 tablets 24h 30 Active OneTouch Delica Lancets 33G 33 TEST TWO TIMES A DAY 30 Active Citalopram Hydrobromide 10 mg Orally Once a day 1 tablet 24h Jan, Active Montelukast Sodium 10 MG 1 tablet 24h 90 Active Zofran 4 MG Orally 3 times a day 1 tablet 8h Jan, Active MeepsTouch Ultra Test TEST BLOOD SUGAR 12h 30 days Active Blood Glucose Monitor System w/Device tests 3 times a day. Dispense per insurance, pt has one touch ultra currently (broken) Jun, Active Ranitidine HCl 150 MG Orally Twice a day 1 tablet as needed 12h Jan, Active Neurontin 100 mg Orally Once a day 1 capsule 24h Jan, Active Ropinirole HCl 4 MG 1 tablet 24h 90 Active Metformin HCl 500 MG Orally Twice a day 2 tablets 12h Active Advair Diskus 500-50 MCG/DOSE 1 puff 12h 30 Active Myrbetriq 50 mg Orally Once a day 1 tablet 24h May, Jul, 30 day(s) Active Promethazine-Codeine 6.25-10 MG/5ML Orally every 6 hrs 5 ml as needed 6h Jan, Active Toviaz 8 MG 1 tablet 24h Active Monument 10-325 MG Orally every 6 hrs 1 tablet as needed 6h Jan, Active RESULTS No Results PROCEDURES No Known [...] intraocular lens prosthesis Hospitalization History admitted to [facility] for bronchitis then went into cardiac arrest and was resuscitated. She was in the hospital for 7 days. 2012 Hospitalization History surgeries
--- OUTSIDE RECORDS SUMMARY | 2019-01-08 00:11 | XMS REPORT ---
Author Author NALINI GOMEZ Organization [facility] Address [address] [place] [address] Care Team Providers Care Inside Channel Account Manager Name Role Phone NALINI GOMEZ Unavailable PROBLEMS Type Condition ICD9-CM Code ZSS67-VC Code Onset Dates Condition Status SNOMED Code Problem Hypothyroidism, unspecified E03.9 Active 44239918 Problem Other chronic pain G89.29 Active 88675019 Problem Hypercholesterolemia 272.0 Active 86547887 Problem Controlled type 2 diabetes mellitus without complication, without long -term current use of insulin E11.9 Active 516124440 Problem Type 2 diabetes mellitus without complications E11.9 Active [id number] ALLERGIES No Information ENCOUNTERS Encounter Location Date Diagnosis [place] [address] [address]- [address] Feb, Head lice B85.0 [place] [address] [place] [id number] [place] [address] 73656- 0423 Feb, Medicare annual wellness visit, initial Z00.00 ; Head lice B85.0 ; Tinea corporis B35.4 and Enlarged lymph node R59.9 [place] [address] [place] [id number] [place] [address] 57586- 8049 Jan, Viral gastroenteritis A08.4 [place] [address] [address]- 1008 Jan, [place] [address] [address]- [address] Dec, Controlled type 2 diabetes mellitus without complication, without long-term current use of insulin E11.9 [place] [address] 88861- 0336 Dec, [place] [address] 10165- 9695 Dec, Viral gastroenteritis A08.4 [facility] [address] [place] [id number] [place] [address] 88478- 4675 Nov, Viral gastroenteritis A08.4 [place] [address] [place] [id number] [place] [address] 41119- 9165 Oct, Acute upper respiratory infection, unspecified J06.9 and Other viral agents as the cause of diseases classified elsewhere B97.89 [place] [address] [place] [id number] [place] [address] 41198- 3364 Oct, Viral gastroenteritis A08.4 [place] [address] [place] [id number] [place] [address] 28754- 7606 Oct, Controlled type 2 diabetes mellitus without complication, without long-term current use of insulin E11.9 ; Encounter for immunization Z23 and Acute pain of left foot M79.672 [place] [address] [place] [id number] [place] [address] 38736- 9273 Sep, Viral gastroenteritis A08.4 [place] [address] [place] [id number] [place] [address] 37084- 2296 Aug, Viral gastroenteritis A08.4 [place] [address] [place] [id number] [place] [address] 29903- 7421 Jul, Viral gastroenteritis A08.4 [facility] [address] [place] [id number] [place] [address] 43962 -2419 Jul, Acute nasopharyngitis (common cold) J00 [facility] [address] [place] [id number] [place] [address] 12869- 4202 Jun, Viral gastroenteritis A08.4 [place] [address] [place] [id number] [place] [address] 39925- 4687 Jun, [place] [address] [place] [id number] [place] [address] 94240- 5561 Jun, Viral gastroenteritis A08.4 [place] [address] [place] [id number] [place] [address] 88828- 0066 May, Patellar tendinitis, left knee M76.52 [place] [address] [place] [id number] [place] [address] 63944- 8658 05 May, 2017 Viral gastroenteritis A08.4 [place] [address] [place] [id number] [place] [address] 73754- 5201 16 Apr, 2017 Viral gastroenteritis A08.4 and Hypothyroidism, unspecified E03.9 [place] [address] [place] [id number] [place] [address] 29989- 1692 15 Apr, 2017 Pain in left knee M25.562 ; Acute left-sided low back pain without sciatica M54.5 and Type 2 diabetes mellitus without complications E11.9 [place] [address] [place] [id number] [place] [address] 33119- 6613 07 Apr, 2017 Viral gastroenteritis A08.4 [place] [address] [place] [id number] [place] [address] 33322- 0843 March, Viral gastroenteritis A08.[address] [facility] [address] [place] [id number] [place] [address] 20581 -2198 Feb, Acute pain of left knee M25.562 [place] [address] [place] [id number] [place] [address] 80228- 1012 Feb, Viral gastroenteritis A08.4 [place] [address] [place] [id number] [place] [address] 67594- 9056 16 Jan, 2017 Viral gastroenteritis A08.4 and Controlled type 2 diabetes mellitus without complication, without long-term current use of insulin E11.9 [place] [address] [place] [id number] [place] [address] 36574- 1722 14 Jan, 2017 [place] [address] [place] [id number] [place] [address] 26432- 2470 16 Dec, 2016 Other chronic pain G89.29 ; Pain in left knee M25.562 ; Controlled type 2 diabetes mellitus without complication, without long-term current use of insulin E11.9 and Acute cystitis with hematuria N30.01 [facility] [address] [address]- 9670 Dec, [facility] [address] [place] [id number] [place] [address] 00610- 9721 Nov, Type 2 diabetes mellitus without complications E11.9 [facility] [address] [place] [id number] [place] [address] 69767- 7937 Nov, [facility] [address] [place] [id number] [place] [address] 32918- 2455 Oct, [facility] [address] [place] [id number] [place] [address] 80754- 9664 Sep, [place] [address] [place] [id number] [place] [address] 20254- 3607 Aug, [place] [address] [place] [id number] [place] [address] 52413- 2650 Aug, [place] [address] [place] [id number] [place] [address] 29913- 2283 Jul, Controlled type 2 diabetes mellitus without complication, without long-term current use of insulin E11.9 ; Callus of foot L84 and URI, acute J06.9 [place] [id number] [place] [address] 17188- 8786 Jul, [place] [address] [place] [id number] [place] [address] 30719- 0873 Jun, Onychomycosis B35.1 and Nail ingrowing L60.0 [place] [address] [place] [id number] [place] [address] 33743- 2384 Jun, [place] [address] [place] [id number] [place] [address] 65953- 9191 Jun, Lumbar back pain with radiculopathy affecting left lower extremity M54.17 [place] [address] [place] [id number] [place] [address] 33932- 9288 Jun, [facility] [address], [place] [address]- 3988 Jun, Other chronic pain G89.29 [facility] [address], [place] [address]- 1687 Jun, Other chronic pain G89.29 [facility] [address] [address]- 4894 Jun, Type 2 diabetes mellitus without complications E11.9 [facility] [address] [address]- 9982 Jun, [facility] [address] [place] [id number] [place] [address] 36892- 3172 Jun, Onychomycosis B35.1 ; Callus L84 and Rash R21 [facility] [address] [address]- 3730 May, [facility] [address] [address]- 9315 May, [facility] [address] [address]- 1119 May, Type 2 diabetes mellitus without complications E11.9 [facility] [address] [address]- 2285 May, [facility] [address], [place] [address]- 5306 Apr, [facility] [address], [place] [address]- 2787 Apr, Type 2 diabetes mellitus without complications E11.9 ; Acquired hypothyroidism E03.9 ; Callus of foot L84 and Upper respiratory tract infection, unspecified type J06.9 [facility] [address], [place] [address]- 7995 March, [facility] [address], [place] [address]- 3540 Feb, [facility] [address], [place] [address]- 3779 Jan, Diabetes mellitus without mention of complication, type II or unspecified type, not stated as uncontrolled 250.00 [facility] [address] [place] [id number] [place] [address] 12416- 9390 Jan, [facility] [address] [place] [id number] [place] [address] 89768- 8851 Jan, Diabetes E11.9 and Hypothyroidism E03.9 [facility] [address] [place] [id number] [place] [address] 47449- 8004 Dec, Diarrhea R19.7 [facility] [address] [place] [id number] [place] [address] 72773- 6823 Dec, [facility] [address] [place] [id number] [place] [address] 71497- 8119 Dec, Hypothyroidism, unspecified E03.9 [facility] [address] [place] [id number] [place] [address] 35342- 5612 Dec, [facility] [address] [place] [id number] [place] [address] 49874- 8394 Dec, Hypothyroidism, unspecified E03.9 [facility] [address] [place] [address] 49338- 8231 Dec, Diarrhea R19.7 [facility] [address] [place] [id number] [place] [address] 24647- 2079 Dec, Diarrhea R19.7 [facility] [address] [place] [id number] [place] [address] 08771- 9816 Nov, [facility] [address] [place] [id number] [place] [address] 06147- 3040 Nov, [facility] [address] [place] [id number] [place] [address] 53971- 7939 Oct, [facility] [address] [place] [id number] [address]- 5020 Sep, Postnasal drip R09.82 [facility] [address] [place] [id number] [address]- 6545 Sep, [facility] [address] [place] [id number] [place] [address] 21172- 3761 Sep, [facility] [address] [place] [id number] [place] [address] 71958- 8981 Aug, [facility] [address] [place] [id number] [place] [address] 18206- 0981 Aug, [facility] [address] [place] [id number] [place] [address] 15657- 2389 Jul, Hypothyroidism 244.9 [facility] [address] [place] [id number] [place] [address] 34630- 7108 Jul, Diabetes mellitus without mention of complication, type II or unspecified type, not stated as uncontrolled 250.00 [facility] [id number] [place] [address] 71042- 1265 Jul, [facility] [address] [place] [id number] [place] [address] 30950- 3427 Jul, [facility] [address], [place] [address]- 5375 Jun, [facility] [address] [place] [address] 44641- 3528 May, Other chronic pain 338.29 [facility] [address] [place] [address] 90599- 7123 10 May, 2015 Other chronic pain 338.29 [facility] [address] [place] [id number] [place] [address] 479940- 9697 May, [facility] [address] 8013 May, [facility] [address] [place] [id number] [place] [address] 67436- 5625 Apr, Rash 782.1 ; Hypercholesterolemia 272.0 and Hypothyroidism 244.9 [facility] [address] [place] [id number] [place] [address]- 6009 Apr, [facility] [address] [facility] [id number] [place] [address]- 5813 Apr, [facility] [address] [facility] [id number] [address]- 6774 March, [facility] [address] [facility] [id number] [place] [address]- 1496 Feb, [facility] [id number] [place] [address], [place] [address]- 2554 Feb, [facility] [address] [place] [id number] [address]- 9780 Jan, [facility] [address] [place] [address]- 3146 Jan, [facility] [address] [place] [id number] [address]- 9194 Jan, [facility] [address], [place] [address]- 7014 Jan, [facility] [address] [place] [id number] [address]- 0861 Jan, [facility] [address], [place] [address]- 7332 Jan, [facility] [address] [place] [id number], [place] [address]- 8820 Jan, [facility] [address], [place] [address]- 4986 Dec, [facility] [address] [place] [id number] [address]- 6484 Dec, [facility] [address], [place] [address]- 8948 Nov, [facility] [place] [facility] [address] [id number] [place] [address]- 0627 Nov, [facility] [place] [facility] [address] [id number] [place] [address]- 4719 Nov, [facility] [place] [facility] [address] [id number] [place] [address]- 4620 Nov, [facility] [place] [facility] [address] [id number] [place] [address]- 5453 Nov, [facility] [place] [facility] [address] [id number] [place] [address]- 8244 Nov, [facility] [place] [facility] [address] [id number] [place] [address]- 8333 Oct, [facility] [place] [facility] [address] [id number] [place] [address]- 9512 Oct, [facility] [place] [facility] [address] [id number], [place] [address]- 7784 Sep, [facility] [place] [facility] [address] [id number], [place] [address]- 6086 Sep, [facility] [place] [facility] [address] [id number], [place] [address]- 7551 Sep, [facility] [place] [facility] [address] [id number], [place] [address]- 7874 Sep, [facility] [place] [facility] [address] [id number], [place] [address]- 3058 Aug, [facility] [place] [facility] [address] [id number] [place] [address]- 0638 Aug, [facility] [place] [facility] [address] [id number] 2023 Jul, [facility] [place] [facility] [address] [id number], [place] [address]- 4882 Jul, [facility] [place] [facility] [address] [id number] [place] [address]- 2281 Jun, [facility] [place] [facility] [address] [id number] [place] 9094 Jun, [facility] [place] [facility] [address] [id number] [place] [address]- 7234 Jun, [facility] [place] [facility] [address] [id number] [place] [address]- 8589 Jun, [facility] [place] [facility] [address] [id number] [place] [address]- 6765 May, [facility] [place] [facility] [address] [id number] [place] [address]- 9271 May, [facility] [place] [facility] [address] [id number] [place] [address]- 8506 May, [facility] [place] [facility] [address] [id number] [place] [address]- 5069 May, [facility] [place] [facility] [address] [id number] [place] [address]- 3537 Apr, [facility] [place] [facility] [address] [id number] [place] [address]- 9262 Apr, [facility] [place] [facility] [address] [id number] [place] [address]- 4542 March, [facility] [place] [facility] [address] [id number] [place] [address]- 6939 March, [facility] [place] [facility] [address] [id number] [place] [address]- 2043 March, [facility] [place] [facility] [address] [id number] [place] [address]- 7242 March, [facility] [place] [facility] [address] [id number] [place] [address]- 1480 March, [facility] [place] [facility] [address] [id number] [place] [address]- 7639 March, [facility] [place] [facility] [address] [id number] [place] [address]- 2932 Feb, [facility] [place] [facility] [address] [id number] [place] [address]- 7840 Feb, [facility] [place] [facility] [address] [id number] [place] [address]- 7146 Feb, [facility] [place] [facility] [address] [id number] [place] [address]- 8702 Feb, [facility] [place] [facility] [address] [id number] [place] [address]- 1990 Feb, [facility] [place] [facility] [address] [id number] [place] [address]- 1157 Feb, [facility] [place] [facility] [address] [id number] [place] [address]- 8136 Feb, [facility] [place] [facility] [address] [id number] [place] [address]- 0063 Feb, [facility] [place] [facility] [address] [id number] [place] [address]- 6025 Jan, [facility] [place] [facility] [address] [id number] [place] [address]- 9849 Jan, [facility] [place] [facility] [address] [id number] [place] [address]- 9633 Jan, [facility] [place] [facility] [address] [id number] [place] [address]- 0418 Jan, [facility] [place] [facility] [address] [id number] [place] [address]- 0537 Jan, [facility] [place] [facility] [address] [id number] [place] [address]- 5648 Jan, [facility] [place] [facility] [address] [id number] [place] 8057 Jan, [facility] [place] [facility] [address] [id number] [place] [address]- 8981 Jan, [facility] [place] [facility] [address] [id number] [place] [address]- 9846 Jan, [facility] [place] [facility] [address] [id number] [place] [address]- 2118 Dec, [facility] [place] [facility] [address] [id number] [place] [address]- 7778 Dec, [facility] [place] [facility] [address] [id number] [place] [address]- 8901 Nov, [facility] [place] [facility] [address] [id number] [place] [address]- 9436 Nov, [facility] [place] [facility] [address] [id number] [place] [address]- 7409 Nov, [facility] [place] [facility] [address] [id number] [place] [address]- 4591 Nov, [facility] [place] [facility] [address] [id number] [place] [address]- 9102 Nov, [facility] [place] [facility] [address] [facility] [id number] [place] [address]- 3019 Nov, [facility] [place] [facility] [address] [facility] [id number] [place] [address]- 0542 Oct, [facility] [place] [facility] [address] [id number] [place] [address]- 5763 Oct, [facility] [place] [facility] [address] [id number] [place] [address]- 8320 Sep, [facility] [place] [facility] [address] [id number] [place] [address]- 7235 Sep, [facility] [place] [facility] [address] [id number] [place] [address]- 1644 Sep, [facility] [place] [facility] [address] [facility] [id number] [place] [address]- 6004 Sep, [facility] [place] [facility] [address] [id number] [place] [address]- 8896 08 Sep, 2013 [facility] [place] [facility] [address] [id number] [place] [address]- 0932 Sep, [facility] [place] [facility] [address] [id number] [place] [address] Sep, [facility] [place] [facility] [address] [id number] [place] [address] Sep, [facility] [place] [facility] [address] [id number] [place] [address] Aug, [facility] [place] [facility] [address] [id number] [place] [address] Aug, [facility] [place] [facility] [address] [id number] [place] [address] Aug, [facility] [place] [facility] [address] [id number] [place] [address] Jul, [facility] [place] [facility] [address] [id number] [place] [address] Jul, [facility] [place] [facility] [address] [id number] [place] [address] Jul, [facility] [place] [facility] [address] [id number] [place] [address] Jun, [facility] [place] [facility] [address] [id number] [place] [address] Jun, [facility] [place] [facility] [address] [id number] [place] [address] Jun, [facility] [place] [facility] [address] [id number] [place] [address] Jun, [facility] [place] [facility] [address] [id number] [place] [address] Jun, [facility] [place] [facility] [address] [id number] [place] [address] Jun, [facility] [address] [id number] [place] [address] May, [facility] [place] [facility] [address] [id number] [place] [address] May, [facility] [place] [facility] [address] [id number] [place] [address] Apr, [facility] [place] [facility] [address] [id number] [place] [address] Apr, [facility] [place] [facility] [address] [id number] [place] [address] March, [facility] [place] [facility] [address] [id number] [place] [address] Feb, [facility] [place] [facility] [address] [id number] [place] [address] Feb, [facility] [place] [facility] [address] [id number] [place] [address] Feb, [facility] [place] [facility] [address] [id number] [place] [address] Feb, [facility] [place] [facility] [address] [id number] [place] [address] Jan, [facility] [place] [facility] [address] [id number] [place] [address] Jan, [facility] [place] [facility] [address] [id number] [address] Jan, [facility] [place] [facility] [address] [id number] [place] [address] Jan, [facility] [place] [facility] [address] [id number] [place] [address] 05 Jan, 2013 [facility] [place] [facility] [address] [id number] [place] [address] Dec, [facility] [place] [facility] [address] [id number] [place] [address] Nov, [facility] [place] [facility] [address] [id number] [place] [address] Nov, [facility] [place] [facility] [address] [id number] [place] [address] Oct, [facility] [place] [facility] [address] [id number] [place] [address] Oct, [facility] [place] [facility] [address] [id number] [place] [address] Oct, [facility] [place] [facility] [address] [id number] [place] [address] Oct, [facility] [place] [facility] [address] [id number] [place] [address] 8527 Oct, [facility] [place] [facility] [address] [id number] [place] [address] Oct, [facility] [place] [facility] [address] [id number] [place] [address] Oct, [facility] [place] [facility] [address] [id number] [place] [address] Oct, [facility] [place] [facility] [address] [facility] [id number] [place] [address] Aug, [facility] [place] [facility] [address] [id number] [place] [address] Aug, [facility] [place] [facility] [address] [id number] [address] Aug, [facility] [place] [facility] [address] [id number] [place] [address] Aug, [facility] [place] [facility] [address] [facility] [id number] [place] [address] Aug, [facility] [place] [facility] [address] [id number] [place] [address] Aug, [facility] [facility] [address] [id number] [place] [address] Aug, [facility] [place] [facility] [address] [id number] [place] [address] Jul, [facility] [place] [facility] [address] [id number] [place] [address] Jul, [facility] [place] [facility] [address] [id number] [place] [address] Jul, [facility] [place] [facility] [address] [id number] [place] [address] Jul, [facility] [place] [facility] [address] [id number] [place] [address] Jul, [facility] [place] [facility] [address] [id number] [place] [address] Jun, [facility] [place] [facility] [address] [id number] [place] [address] Jun, [facility] [place] [facility] [address] [id number] [place] [address] Jun, [facility] [place] [facility] [address] [id number] [place] [address] May, [facility] [place] [facility] [address] [id number] [place] [address] May, [facility] [place] [facility] [address] [id number] [place] [address] May, [facility] [place] [facility] [address] [id number] [place] [address] May, [facility] [place] [facility] [address] [id number] [place] [address] May, [facility] [place] [facility] [address] [id number] [place] [address] May, [facility] [place] [facility] [address] [id number] [place] [address] May, [facility] [place] [facility] [address] [id number] [place] [address] Apr, [facility] [place] [facility] [address] [id number] [place] [address] 2016 Apr, [facility] [place] [facility] [address] [id number] [place] [address] March, [facility] [place] [facility] [address] [id number] [place] [address] Feb, [facility] [place] [facility] [address] [id number] [place] [address] 30 Jan, 2012 [facility] [place] [facility] [address] [id number] [place] [address] Jan, [facility] [place] [facility] [address] [id number] [place] [address] Jan, [facility] [place] [facility] [address] [id number] [place] [address] Jan, [facility] [place] [facility] [address] [id number] [place] [address] Jan, [facility] [place] [facility] [address] [id number] [place] [address] Jan, [facility] [place] [facility] [address] [id number] [place] [address] Jan, [facility] [place] [address] [id number] [place] [address] Jan, [facility] [address] [id number] [place] [address] Jan, [facility] [place] [facility] [address] [id number] [place] [address] Jan, [facility] [place] [facility] [address] [id number] [place] [address] Dec, [facility] [address] [facility] [id number] [place] [address] Dec, [facility] [address] [facility] [id number] [place] [address] Dec, [facility] [address] [facility] [id number] [place] [address] Dec, [facility] [address] [facility] [id number] [place] [address] Dec, [facility] [address] [facility] [id number] [place] [address] Dec, [facility] [address] [facility] [id number] [place] [address] Dec, [facility] [address] [facility] [id number] [place] [address] Dec, [facility] [address] [id number] [address] Nov, [facility] [address] [facility] [id number] [place] [address] Nov, [facility] [id number] [address] Nov, [facility] [id number] [address] Oct, [facility] [address] [facility] [id number] [address] Oct, [facility] [address] [facility] [id number], [place] [address] Oct, [facility] [address] [facility] [id number], [place] [address] Oct, [facility] [address] [facility] [id number], [place] [address] Sep, IMMUNIZATIONS No Known Immunizations SOCIAL HISTORY Never Assessed REASON FOR VISIT Controlled Med Refill 06/24/17 PLAN OF CARE VITAL SIGNS MEDICATIONS Medication Instructions Dosage Frequency Start Date End Date Duration Status [place] 10-325 MG Orally every 6 hrs 1 [...]
--- OUTSIDE RECORDS SUMMARY | 2019-01-08 00:12 | XMS REPORT ---
Author Author NALINI GOMEZ Organization [facility] Address [address] [place] [address] Care Team Providers Care Hand Binder Stripper Name Role Phone NALINI GOMEZ Unavailable PROBLEMS Type Condition ICD9-CM Code OZA41-TD Code Onset Dates Condition Status SNOMED Code Problem Hypothyroidism, unspecified E03.9 Active 02941967 Problem Other chronic pain G89.29 Active 79263794 Problem Hypercholesterolemia 272.0 Active 44709237 Problem Controlled type 2 diabetes mellitus without complication, without long -term current use of insulin E11.9 Active 260054684 Problem Type 2 diabetes mellitus without complications E11.9 Active [id number] ALLERGIES No Information ENCOUNTERS Encounter Location Date Diagnosis [place] [address] [address]- [address] Feb, [place] [address] 93017- 8857 Jan, Viral gastroenteritis A08.4 [place] [address] 7[address]24- 0213 Jan, [place] [address] 32023- 6798 Dec, Controlled type 2 diabetes mellitus without complication, without long-term current use of insulin E11.9 [facility] [address] [place] [id number] [place] [address] 65038- 3638 Dec, [place] [address] 51196- 6102 Dec, Viral gastroenteritis A08.4 [place] [address] 27626- 9225 Nov, Viral gastroenteritis A08.4 [place] [address] [place] [address]- 8645 Oct, Acute upper respiratory infection, unspecified J06.9 and Other viral agents as the cause of diseases classified elsewhere B97.89 [place] [address] 96036- 3201 Oct, Viral gastroenteritis A08.4 [place] [address] [place] [id number] [place] [address] 55851- 7523 Oct, Controlled type 2 diabetes mellitus without complication, without long-term current use of insulin E11.9 ; Encounter for immunization Z23 and Acute pain of left foot M79.672 [place] [address] 79537- 1053 Sep, Viral gastroenteritis A08.4 [place] [address] 17593- 7873 Aug, Viral gastroenteritis A08.4 [place] [address] 51315- 0418 Jul, Viral gastroenteritis A08.4 [facility] [address] 19990 -[address]92 Jul, Acute nasopharyngitis (common cold) J00 [place] [address] [place] [id number] [place] [address] 51565- 7423 Jun, Viral gastroenteritis A08.4 [place] [address] 06202- 3787 Jun, [place] [address] [place] [id number] [place] [address] 60194- 7176 Jun, Viral gastroenteritis A08.4 [place] [address] 06459- 2475 May, Patellar tendinitis, left knee M76.52 [place] [address] [place] [id number] [place] [address] 20423- 0668 May, Viral gastroenteritis A08.4 [place] [address] [place] [id number] [place] [address] 68392- 2461 16 Apr, 2017 Viral gastroenteritis A08.4 and Hypothyroidism, unspecified E03.9 [place] [address] [place] [id number] [place] [address] 10173- 6091 15 Apr, 2017 Pain in left knee M25.562 ; Acute left-sided low back pain without sciatica M54.5 and Type 2 diabetes mellitus without complications E11.9 [place] [address] [place] [id number] [place] [address] 68481- 3389 07 Apr, 2017 Viral gastroenteritis A08.4 [place] [address] [place] [id number] [place] [address] 90383- 6193 March, Viral gastroenteritis A08.4 [facility] [address] [place] [id number] [place] [address] 09502 -4550 Feb, Acute pain of left knee M25.562 [place] [address] [place] [id number] [place] [address] 28581- 5368 13 Feb, 2017 Viral gastroenteritis A08.4 [place] [address] [place] [id number] [place] [address] 73397- 6686 Jan, Viral gastroenteritis A08.4 and Controlled type 2 diabetes mellitus without complication, without long-term current use of insulin E11.9 [place] [address] [place] [id number] [place] [address] 80001- 2224 14 Jan, 2017 [place] [address] [place] [id number] [place] [address] 33039- 8397 16 Dec, 2016 Other chronic pain G89.29 ; Pain in left knee M25.562 ; Controlled type 2 diabetes mellitus without complication, without long-term current use of insulin E11.9 and Acute cystitis with hematuria N30.01 [place] [address] [place] [id number] [place] [address] 59730- 7010 Dec, [place] [address] [place] [id number] [place] [address] 97662- 1031 Nov, Type 2 diabetes mellitus without complications E11.9 [facility] [id number] [place] [address] 52673- 1724 Nov, [facility] [address] [place] [id number] [place] [address] 64240- 0138 Oct, [facility] [address] [place] [id number] [place] [address] 54235- 3742 Sep, [place] [address] [place] [id number] [place] [address] 43773- 6358 Aug, [facility] [address] [place] [id number] [place] [address] 25816- 6889 Aug, [place] [address] [place] [id number] [place] [address] 95613- 9430 Jul, Controlled type 2 diabetes mellitus without complication, without long-term current use of insulin E11.9 ; Callus of foot L84 and URI, acute J06.9 [place] [address] [place] [id number] [place] [address] 56509- 9023 Jul, [place] [address] [place] [id number] [place] [address] 29758- 7025 Jun, Onychomycosis B35.1 and Nail ingrowing L60.0 [place] [address] [place] [id number] [place] [address] 26664- 8138 Jun, [place] [address] [place] [id number] [place] [address] 07348- 2906 Jun, Lumbar back pain with radiculopathy affecting left lower extremity M54.17 [place] [address] [place] [id number] [place] [address] 83094- 4888 Jun, [place] [address] [place] [id number] [place] [address] 26183- 9359 Jun, Other chronic pain G89.29 [place] [address] [place] [id number] [place] [address] 83970- 2023 Jun, Other chronic pain G89.29 [facility] [address] [address]- 4906 Jun, Type 2 diabetes mellitus without complications E11.9 [facility] [address] [address]- 8873 Jun, [facility] [address] [place] [id number] [place] [address] 51577- 8805 Jun, Onychomycosis B35.1 ; Callus L84 and Rash R21 [facility] [address] [address]- 1362 May, [facility] [address] [place] [id number] [place] [address] 58889- 0567 May, [facility] [address] [place] [id number] [place] [address] 16620- 2058 May, Type 2 diabetes mellitus without complications E11.9 [facility] [address] [address]- 7512 May, [facility] [address] [address] 1988 Apr, [facility] [address] [address]- 3209 Apr, Type 2 diabetes mellitus without complications E11.9 ; Acquired hypothyroidism E03.9 ; Callus of foot L84 and Upper respiratory tract infection, unspecified type J06.9 [facility] [address] [address]- 9883 March, [facility] [address] [address]- 2592 Feb, [facility] [address] [address]- 8432 Jan, Diabetes mellitus without mention of complication, type II or unspecified type, not stated as uncontrolled 250.00 [facility] [id number] [place] [address] 88121- 8882 Jan, [facility] [id number] [place] [address] 15199- 1647 Jan, Diabetes E11.9 and Hypothyroidism E03.9 [facility] [address] [address] 2546 29 Dec, 2015 Diarrhea R19.7 [facility] [address] [place] [id number] [place] [address] 59378 2546 Dec, [facility] [id number] [place] [address] 35322- 1064 Dec, Hypothyroidism, unspecified E03.9 [facility] [address] [place] [id number] [place] [address] 51490- 6826 Dec, [facility] [address] [place] [id number] [place] [address] 11551- 3720 Dec, Hypothyroidism, unspecified E03.9 [facility] [address] [address]- 9284 04 Dec, 2015 Diarrhea R19.7 [facility] [address] [place] [id number] [place] [address] 94308- 1656 Dec, Diarrhea R19.7 [facility] [address] [address]- 5191 Nov, [facility] [address] [address]- 7448 Nov, [facility] [address] [address]- 6140 Oct, [facility] [address] [place] [id number] [place] [address] 84909- 3032 Sep, Postnasal drip R09.82 [facility] [address], [place] [address]- 8407 Sep, [facility] [address] [place] [id number] [place] [address] 80149- 0178 Sep, [facility] [address] [place] [id number] [place] [address] 83631- 8232 Aug, [facility] [address] [place] [id number] [place] [address] 57635- 0010 Aug, [facility] [address] [place] [id number] [place] [address] 05257- 3093 Jul, Hypothyroidism 244.9 [facility] [address] 03837- 0180 Jul, Diabetes mellitus without mention of complication, type II or unspecified type, not stated as uncontrolled 250.00 [facility] [address] [place] [id number] [place] [address] 265344- 1060 Jul, [facility] [address] [place] [id number] [place] [address] 22315- 7058 Jul, [facility] [address] [place] [id number] [place] [address] 86016- 1627 Jun, [facility] [address] [place] [id number] [place] [address] 693217- 8037 May, Other chronic pain 338.29 [facility] [address] [place] [id number] [place] [address] 76754- 1073 May, Other chronic pain 338.29 [facility] [address] [place] [id number] [place] [address] 65360- 9083 May, [facility] [address] [place] [id number] [place] [address] 16493- 7764 May, [facility] [address] 086232- 5371 Apr, Rash 782.1 ; Hypercholesterolemia 272.0 and Hypothyroidism 244.9 [facility] [address] [place] [id number] [place] [address] 90172- 8453 Apr, [facility] [address] [place] [address]- 5287 Apr, [facility] [place] [facility] [address] [id number] [place] [address]- 6981 March, [facility] [place] [facility] [address] [id number] [place] [address]- 4621 14 Feb, 2015 [facility] [place] [facility] [address] [id number] [place] [address]- 1479 Feb, [facility] [place] [facility] [address] [id number] [place] [address]- 7188 Jan, [facility] [place] [facility] [address] [id number] [place] [address]- 8059 Jan, [facility] [place] [facility] [address] [id number] [place] [address]- 7700 Jan, [facility] [place] [facility] [address] [id number] [place] [address]- 0213 Jan, [facility] [place] [facility] [address] [id number] [place] [address]- 4511 Jan, [facility] [place] [facility] [address] [id number] [place] [address]- 6194 Jan, [facility] [place] [facility] [address] [id number] [place] [address]- 3397 Jan, [facility] [place] [facility] [address] [id number] [place] [address]- 9865 16 Dec, 2014 [facility] [place] [facility] [address] [id number] [place] [address]- 0868 Dec, [facility] [place] [facility] [address] [id number] [place] [address]- 7364 Nov, [facility] [place] [facility] [address] [id number] [place] [address]- 9037 Nov, [facility] [place] [facility] [address] [id number] [place] [address]- 6860 Nov, [facility] [place] [facility] [address] [id number] [place] [address]- 7055 Nov, [facility] [place] [facility] [address] [id number] [place] [address]- 3211 Nov, [facility] [place] [facility] [address] [id number] [place] [address]- 6221 Nov, [facility] [place] [facility] [address] [id number] [place] [address]- 7030 Oct, [facility] [place] [facility] [address] [id number] [place] [address]- 8325 Oct, [facility] [place] [facility] [address] [id number] [place] [address]- 5125 Sep, [facility] [place] [facility] [address] [id number] [place] [address]- 3401 Sep, [facility] [place] [facility] [address] [id number] [place] [address]- 1340 Sep, [facility] [place] [facility] [address] [id number] [place] [address]- 0603 Sep, [facility] [place] [facility] [address] [id number] [place] [address]- 5729 Aug, [facility] [place] [facility] [address] [id number] [place] [address]- 7106 Aug, [facility] [place] [facility] [address] [id number] [place] [address]- 5810 Jul, [facility] [place] [facility] [address] [id number] [place] [address]- 1749 Jul, [facility] [place] [facility] [address] [id number] [place] [address]- 7454 Jun, [facility] [place] [facility] [address] [id number] [place] [address]- 0568 Jun, [facility] [place] [facility] [address] [id number] [place] [address]- 2546 Jun, [facility] [place] [facility] [address] [id number] [place] [address]- 0853 Jun, [facility] [place] [facility] [address] [id number] [place] [address]- 8803 May, [facility] [place] [facility] [address] [id number] [place] [address]- 5359 May, [facility] [place] [facility] [address] [id number] [place] [address]- 5633 May, [facility] [place] [facility] [address] [id number] [place] [address]- 5145 May, [facility] [place] [facility] [address] [id number] [place] [address]- 5309 Apr, [facility] [place] [facility] [address] [id number] [place] [address]- 1945 Apr, [facility] [place] [facility] [address] [id number] [place] [address]- 2982 March, [facility] [place] [facility] [address] [id number] [place] [address]- 2073 March, [facility] [place] [facility] [address] [id number] [place] [address]- 5301 March, [facility] [place] [facility] [address] [id number] [place] [address]- 2515 March, [facility] [place] [facility] [address] [id number] [place] [address]- 2638 March, [facility] [place] [facility] [address] [id number] [place] [address]- 2593 March, [facility] [place] [facility] [address] [id number] [place] [address]- 4252 Feb, [facility] [place] [facility] [address] [id number] [place] [address]- 0605 Feb, [facility] [place] [facility] [address] [id number] [place] [address]- 8110 Feb, [facility] [address] [id number] [place] [address]- 5397 Feb, [facility] [place] [facility] [address] [id number] [place] [address]- 2966 Feb, [facility] [address] [id number] [place] [address]- 4279 Feb, [facility] [place] [facility] [address] [id number] [place] [address]- 8428 Feb, [facility] [address] [id number] [place] [address]- 5717 Feb, [facility] [place] [facility] [address] [id number] [place] [address]- 2524 Jan, [facility] [place] [facility] [address] [id number] [place] [address]- 1833 Jan, [facility] [address] [id number] [place] [address]- 4797 Jan, [facility] [place] [facility] [address] [id number] [place] [address]- 3740 Jan, [facility] [address] [id number] [place] [address]- 4916 Jan, [facility] [place] [facility] [address] [id number] [place] [address]- 5932 Jan, [facility] [place] [facility] [address] [id number] [place] [address]- 1486 Jan, [facility] [place] [facility] [address] [id number] [place] [address]- 8701 10 Jan, 2014 [facility] [place] [facility] [address] [id number] [place] [address]- 1890 Jan, [facility] [place] [facility] [address] [id number] [place] [address]- 6682 Dec, [facility] [place] [facility] [address] [id number] [place] [address]- 7982 Dec, [facility] [place] [facility] [address] [id number] [place] [address]- 8391 Nov, [facility] [place] [facility] [address] [id number] [place] [address]- 4760 Nov, [facility] [place] [facility] [address] [id number] [place] [address]- 6285 Nov, [facility] [place] [facility] [address] [id number] [place] [address]- 8955 Nov, [facility] [place] [facility] [address] [id number] [place] [address]- 7099 Nov, [facility] [place] [facility] [address] [id number] [place] [address]- 6915 Nov, [facility] [place] [facility] [address] [id number] [place] [address]- 9434 Oct, [facility] [place] [facility] [address] [id number] [place] [address]- 1938 Oct, [facility] [place] [facility] [address] [id number] [place] [address]- 4786 Sep, [facility] [place] [facility] [address] [id number] [address]- 1172 Sep, [facility] [place] [facility] [address] [id number] [address]- 8036 Sep, [facility] [place] [facility] [address] [id number] [place] [address]- 4386 Sep, [facility] [place] [facility] [address] [id number], [place] [address]- 1450 Sep, [facility] [place] [facility] [address] [id number] [place] [address]- 6608 Sep, [facility] [place] [facility] [address] [id number] [place] [address]- 1075 Sep, [facility] [place] [facility] [address] [id number] [place] [address]- 6441 Sep, [facility] [place] [facility] [address] [id number] [place] [address]- 6470 Aug, [facility] [place] [facility] [address] [id number] [place] [address]- 3469 Aug, [facility] [place] [facility] [address] [id number] [place] [address]- 2552 Aug, [facility] [place] [facility] [address] [id number] [place] [address]- 8526 Jul, [facility] [place] [facility] [address] [id number] [place] [address]- 1150 Jul, [facility] [place] [facility] [address] [id number] [place] [address]- 3621 Jul, [facility] [place] [facility] [address] [id number] [place] [address]- 7276 Jun, [facility] [place] [facility] [address] [id number] [place] [address]- 8310 Jun, [facility] [place] [facility] [address] [id number] [place] [address]- 8470 Jun, [facility] [place] [facility] [address] [id number] [place] [address]- 4534 Jun, [facility] [place] [facility] [address] [id number] [place] [address]- 5278 Jun, [facility] [place] [facility] [address] [id number] [place] [address]- 5347 Jun, [facility] [place] [facility] [address] [id number] [place] [address]- 0399 May, [facility] [place] [facility] [address] [id number] [place] [address]- 9689 May, [facility] [place] [facility] [address] [id number] [place] [address]- 4699 Apr, [facility] [address] [id number] [place] [address]- 8177 Apr, [facility] [address] [id number] [place] [address] March, [facility] [address] [id number] [place] [address] Feb, [facility] [address] [id number] [place] [address] Feb, [facility] [address] [id number] [place] [address] Feb, [facility] [address] [id number] [place] [address] Feb, [facility] [address] [id number] [place] [address] Jan, [facility] [address] [id number] [place] [address] Jan, [facility] [address] [id number] [place] [address] Jan, [facility] [address] [id number] [place] [address] Jan, [facility] [address] [id number] [place] [address] Jan, [facility] [address] [id number] [place] [address] Dec, [facility] [place] [facility] [address] [id number] [place] [address] Nov, [facility] [place] [facility] [address] [id number] [place] [address] Nov, [facility] [place] [facility] [address] [id number], [place] [address] Oct, [facility] [place] [facility] [address] [id number] [place] [address] [address] Oct, [facility] [place] [facility] [address] [id number] [place] [address] Oct, [facility] [place] [facility] [address] [facility] [id number] [place] [address] Oct, [facility] [place] [facility] [address] [id number], [place] [address] Oct, [facility] [place] [facility] [address] [id number] [place] [address] Oct, [facility] [place] [facility] [address] [id number] [place] [address] Oct, [facility] [place] [facility] [address] [id number], [place] [address] Oct, [facility] [place] [facility] [address] [id number], [place] [address] Aug, [facility] [place] [facility] [address] [id number], [place] [address] 30 Aug, 2012 [facility] [place] [facility] [address] [id number], [place] [address] Aug, [facility] [place] [facility] [address] [id number], [place] [address] Aug, [facility] [place] [facility] [address] [id number], [place] [address] Aug, [facility] [place] [facility] [address] [id number] [address] 19 Aug, 2012 [facility] [place] [facility] [address] [facility] [id number] 15 Aug, 2012 [facility] [place] [facility] [address] [facility] [id number], [place] [address] 27 Jul, 2012 [facility] [place] [facility] [address] [id number] [place] [address]99 27 Jul, 2012 [facility] [address] [id number] [place] [address] 47[address] Jul, [facility] [place] [facility] [address] [id number] [place] [address] Jul, [facility] [address] [id number] [place] [address] Jul, [facility] [place] [facility] [address] [id number] [place] [address] Jun, [facility] [place] [facility] [address] [id number] [place] [address] Jun, [facility] [place] [facility] [address] [id number] [place] [address] Jun, [facility] [place] [facility] [address] [id number] [place] [address] May, [facility] [address] [id number] [place] [address] May, [facility] [place] [facility] [address] [id number] [place] [address] May, [facility] [address] [id number] [place] [address] May, [facility] [place] [facility] [address] [id number] [place] [address] May, [facility] [place] [facility] [address] [id number] [place] [address] May, [facility] [place] [facility] [address] [id number] [place] [address] May, [facility] [place] [facility] [address] [id number] [place] [address] Apr, [facility] [place] [facility] [address] [id number] [place] [address] Apr, [facility] [place] [facility] [address] [id number] [place] [address] March, [facility] [place] [facility] [address] [id number] [place] [address]- [address] Feb, [facility] [place] [facility] [address] [id number] [place] [address] 30 Jan, 2012 [facility] [place] [facility] [address] [id number] [place] [address] Jan, [facility] [place] [facility] [address] [id number] [place] [address] Jan, [facility] [place] [facility] [address] [id number] [place] [address] Jan, [facility] [place] [facility] [address] [id number] [place] [address] Jan, [facility] [place] [facility] [address] [id number] [place] [address] Jan, [facility] [place] [facility] [address] [id number] [place] [address] Jan, [facility] [place] [facility] [address] [id number] [place] [address] Jan, [facility] [place] [facility] [address] [id number] [place] [address] Jan, [facility] [place] [facility] [address] [id number] [place] [address] Jan, [facility] [place] [facility] [address] [id number] [place] [address] Dec, [facility] [place] [facility] [address] [id number] [place] [address] Dec, [facility] [place] [facility] [address] [id number] [place] [address] Dec, [facility] [place] [facility] [id number] [address] Dec, [facility] [id number] [address] Dec, [facility] [id number] [address] Dec, [facility] [id number] [place] [address]- [address] Dec, [facility] [id number] [place] [address]- [address] Dec, [facility] [id number] [place] [address]- [address] Nov, [facility] [id number] [place] [address] [id number]- [address] Nov, [facility] [id number] [place] [address]- [address] Nov, [facility] [id number] [address] Oct, [facility] [id number] [place] [address]- [address] Oct, [facility] [id number] [address] Oct, [facility] [id number] [address] Oct, [facility] [id number] [address] Sep, IMMUNIZATIONS No Known Immunizations SOCIAL HISTORY Never Assessed REASON FOR VISIT Controlled Med Refill Request PLAN OF CARE VITAL SIGNS MEDICATIONS Medication Instructions Dosage Frequency Start Date End Date Duration Status [place] 10-325 MG Orally every 6 hrs 1 [...]
--- OUTSIDE RECORDS SUMMARY | 2019-01-08 00:13 | XMS REPORT ---
Author Author SALLY Hu [facility] Address [address] [place] [address] Care Team Providers Care Back Tufter Name Role Phone SALLY Hu Unavailable PROBLEMS Type Condition ICD9-CM Code [id number] Code Onset Dates Condition Status SNOMED Code Problem Hypothyroidism, unspecified E03.9 Active 66771034 Problem Other chronic pain G89.29 Active 68673453 Problem Hypercholesterolemia 272.0 Active 03050347 Problem Controlled type 2 diabetes mellitus without complication, without long -term current use of insulin E11.9 Active 769378050 Problem Type 2 diabetes mellitus without complications E11.9 Active [id number] ALLERGIES Substance Reaction Event Type Date Status Rocephin Unknown Drug Allergy Jul, Active Penicillin V Potassium Unknown Drug Allergy Jul, Active Nsaids (non-steroidal Anti-inflammatory Drug) renal insuffiency Non Drug Allergy Jul, Active ENCOUNTERS Encounter Location Date Diagnosis [place] [address] 24539- 4264 Feb, [place] [address] 60026- 3745 Feb, [place] [address] 46300- 7952 Feb, [facility] [address] [place] [id number] [place] [address] 07988- 4722 Feb, Viral gastroenteritis A08.4 [place] [address] 85316- 9144 Feb, Head lice B85.0 [place] [id number] 31133- 7757 Feb, Medicare annual wellness visit, initial Z00.00 ; Head lice B85.0 ; Tinea corporis B35.4 and Enlarged lymph node R59.9 [place] [address] [place] [id number] [place] [address] 33440- 6935 Jan, Viral gastroenteritis A08.4 [place] [address] [place] [id number] [place] [address] 02888- 2584 Jan, [place] [address] 19874- 1697 Dec, Controlled type 2 diabetes mellitus without complication, without long-term current use of insulin E11.9 [place] [address] 67891- 6645 Dec, [place] [address] 80130- 4935 Dec, Viral gastroenteritis A08.4 [place] [address] 87270- 7971 Nov, Viral gastroenteritis A08.4 [place] [address] [place] [id number] [place] [address] 47476- 8908 Oct, Acute upper respiratory infection, unspecified J06.9 and Other viral agents as the cause of diseases classified elsewhere B97.89 [place] [address] [place] [id number] [place] [address] 28525- 0439 Oct, Viral gastroenteritis A08.4 [place] [address] [place] [id number] [place] [address] 29637- 1938 Oct, Controlled type 2 diabetes mellitus without complication, without long-term current use of insulin E11.9 ; Encounter for immunization Z23 and Acute pain of left foot M79.672 [place] [address] 31952- 2417 Sep, Viral gastroenteritis A08.4 [place] [address] [place] [id number] [place] [address] 68559- 2491 Aug, Viral gastroenteritis A08.4 [place] [address] [place] [id number] [place] [address] 90211- 0818 Jul, Viral gastroenteritis A08.4 [facility] [address] [place] [id number] [place] [address] 21498 -3479 Jul, Acute nasopharyngitis (common cold) J00 [facility] [address] [place] [id number] [place] [address] 93035- 1262 Jun, Viral gastroenteritis A08.4 [facility] [address] [place] [id number] [place] [address] 77228- 0491 Jun, [place] [address] [place] [id number] [place] [address] 23171- 2044 Jun, Viral gastroenteritis A08.4 [place] [address] [place] [id number] [place] [address] 23868- 0797 May, Patellar tendinitis, left knee M76.52 [place] [address] [place] [id number] [place] [address] 67155- 2140 May, Viral gastroenteritis A08.4 [place] [address] [place] [id number] [place] [address] 33376- 5459 Apr, Viral gastroenteritis A08.4 and Hypothyroidism, unspecified E03.9 [place] [address] [place] [id number] [place] [address] 36415- 4796 15 Apr, 2017 Pain in left knee M25.562 ; Acute left-sided low back pain without sciatica M54.5 and Type 2 diabetes mellitus without complications E11.9 [facility] [address] [place] [id number] [place] [address] 66352- 1160 Apr, Viral gastroenteritis A08.4 [place] [address] [place] [id number] [place] [address] 20249- 2873 March, Viral gastroenteritis A08.4 [facility] [address] [place] [id number] [place] [address] 86400 -3477 Feb, Acute pain of left knee M25.562 [place] [address] [place] [id number] [place] [address] 37970- 7993 13 Feb, 2017 Viral gastroenteritis A08.4 [place] [address] 94918- 9646 16 Jan, 2017 Viral gastroenteritis A08.4 and Controlled type 2 diabetes mellitus without complication, without long-term current use of insulin E11.9 [place] [address] [place] [id number] [place] [address] 60887- 9941 14 Jan, 2017 [place] [address] [place] [id number] [place] [address] 31814- 7582 16 Dec, 2016 Other chronic pain G89.29 ; Pain in left knee M25.562 ; Controlled type 2 diabetes mellitus without complication, without long-term current use of insulin E11.9 and Acute cystitis with hematuria N30.01 [place] [address] [place] [id number] [place] [address] 86458- 4408 Dec, [place] [address] [place] [id number] [place] [address] 63927- 8412 06 Nov, 2016 Type 2 diabetes mellitus without complications E11.9 [place] [address] [place] [id number] [place] [address] 53568- 7840 04 Nov, 2016 [place] [address] [place] [id number] [place] [address] 68907- 6190 07 Oct, 2016 [place] [address] [place] [id number] [place] [address] 68089- 2232 Sep, [place] [address] [place] [id number] [place] [address] 94657- 2835 11 Aug, 2016 [place] [address] [place] [id number] [place] [address] 62570- 0291 Aug, [place] [address] [place] [id number] [place] [address] 48518- 0551 20 Jul, 2016 Controlled type 2 diabetes mellitus without complication, without long-term current use of insulin E11.9 ; Callus of foot L84 and URI, acute J06.9 [facility] [address] [place] [id number] [place] [address] 74478- 0324 Jul, [facility] [address] [place] [id number] [place] [address] 50234- 9942 Jun, Onychomycosis B35.1 and Nail ingrowing L60.0 [facility] [address] [place] [id number] [place] [address] 12481- 3526 Jun, [facility] [address] [place] [id number] [place] [address] 98066 2543 Jun, Lumbar back pain with radiculopathy affecting left lower extremity M54.17 [place] [address] [place] [id number] [place] [address] 59258- 4434 Jun, [facility] [address] [place] [id number] [place] [address] 80080- 1631 Jun, Other chronic pain G89.29 [facility] [address] [place] [id number] [place] [address] 80185 2544 Jun, Other chronic pain G89.29 [facility] [address] [place] [id number] [place] [address] 89855 254 Jun, Type 2 diabetes mellitus without complications E11.9 [facility] [address] [place] [id number] [place] [address] 66909 2546 Jun, [facility] [address] [place] [id number] [place] [address] 15499 2540 Jun, Onychomycosis B35.1 ; Callus L84 and Rash R21 [facility] [address] [place] [id number] [place] [address] 87657 2546 May, [facility] [address] [place] [id number] [place] [address] 44909 2545 May, [facility] [address] [place] [id number] [place] [address] 14090 2547 May, Type 2 diabetes mellitus without complications E11.9 [facility] [address] [address]- 9739 14 May, 2016 [facility] [address] [place] [id number] [place] [address] 52453- 9296 Apr, [facility] [address] [address]- 8596 Apr, Type 2 diabetes mellitus without complications E11.9 ; Acquired hypothyroidism E03.9 ; Callus of foot L84 and Upper respiratory tract infection, unspecified type J06.9 [facility] [address] [address]- 0761 March, [facility] [address] [place] [id number] [place] [address] 34807- 6883 Feb, [facility] [address] [place] [id number] [place] [address] 98093- 5133 Jan, Diabetes mellitus without mention of complication, type II or unspecified type, not stated as uncontrolled 250.00 [facility] [address] [place] [address] 34697- 5340 Jan, [facility] [address] [place] [id number] [place] [address] 41754- 2047 Jan, Diabetes E11.9 and Hypothyroidism E03.9 [facility] [address] [address]- 1289 Dec, Diarrhea R19.7 [facility] [address] [address]- 8585 Dec, [facility] [address] [place] [address]- 1405 Dec, Hypothyroidism, unspecified E03.9 [facility] [address] [address]- 8255 Dec, [facility] [address], [place] [address]- 4578 Dec, Hypothyroidism, unspecified E03.9 [facility] [address] [place] [id number] [place] [address] 10126- 3713 04 Dec, 2015 Diarrhea R19.7 [facility] [address] [place] [id number] [place] [address] 35247- 1389 Dec, Diarrhea R19.7 [facility] [address] [place] [id number] [place] [address] 66987- 9327 Nov, [facility] [address] [place] [id number] [place] [address] 56116- 4215 Nov, [facility] [address] [place] [id number] [place] [address] 55548- 1449 Oct, [facility] [address] [place] [id number] [place] [address] 08459- 1051 Sep, Postnasal drip R09.82 [facility] [address] 30066- 9961 Sep, [facility] [address] [place] [id number] [place] [address] 74055- 6623 Sep, [facility] [address] [place] [id number] [place] [address] 39371- 8140 Aug, [facility] [address] [place] [id number] [place] [address] 46553- 4106 Aug, [facility] [address] [place] [id number] [place] [address] 50421- 4693 Jul, Hypothyroidism 244.9 [facility] [address] [place] [address] 10377- 0607 Jul, Diabetes mellitus without mention of complication, type II or unspecified type, not stated as uncontrolled 250.00 [facility] [address] [place] [id number] [place] [address] 90162- 4468 Jul, [facility] [address] [place] [id number] [place] [address] 50027- 1080 Jul, [facility] [address], [place] [address]- 7859 Jun, [facility] [address] [place] [id number] [place] [address] 503743- 2036 May, Other chronic pain 338.29 [facility] [address] [place] [id number] [place] [address] 471407- 5659 10 May, 2015 Other chronic pain 338.29 [facility] [address] [place] [id number] [place] [address] 24445- 5275 09 May, 2015 [facility] [address] [place] [id number] [place] [address] 07266- 4747 May, [facility] [address] [place] [id number] [place] [address] 48745- 2322 Apr, Rash 782.1 ; Hypercholesterolemia 272.0 and Hypothyroidism 244.9 [facility] [address] [place] [id number] [place] [address] 99790- 1872 Apr, [facility] [address] [place] [id number] [place] [address] 81045- 1295 Apr, [facility] [address] [place] [id number] [place] [address] 90977- 4231 March, [facility] [address] [place] [id number] [place] [address] 57733- 3243 Feb, [facility] [address] [place] [address] 46274- 1919 Feb, [facility] [address] [place] [address] 153276- 0736 Jan, [facility] [address] [place] [id number] [place] [address] [id number]- 4129 Jan, [facility] [address], [place] [address]- 0588 Jan, [facility] [address] [place] [id number] [place] [address] 01823- 2003 13 Jan, 2015 [facility] [place] [facility] [address] [id number] [place] [address]- 8913 13 Jan, 2015 [facility] [place] [facility] [address] [id number] [place] [address]- 7252 11 Jan, 2015 [facility] [place] [facility] [address] [id number] [place] [address]- 6635 Jan, [facility] [place] [facility] [address] [id number] [place] [address]- 8632 16 Dec, 2014 [facility] [place] [facility] [address] [id number] [place] [address]- 5655 Dec, [facility] [place] [facility] [address] [id number] [place] [address]- 1826 Nov, [facility] [place] [facility] [address] [id number] [place] [address]- 6254 Nov, [facility] [place] [facility] [address] [id number] [place] [address]- 6413 Nov, [facility] [place] [facility] [address] [id number] [place] [address]- 9387 Nov, [facility] [place] [facility] [address] [id number] [place] [address]- 9696 Nov, [facility] [place] [facility] [address] [id number] [place] [address]- 3462 Nov, [facility] [place] [facility] [address] [id number] [place] [address]- 9453 Oct, [facility] [place] [facility] [address] [id number] [place] [address]- 3111 Oct, [facility] [place] [facility] [address] [id number] [place] [address]- 6923 Sep, [facility] [place] [facility] [address] [id number] [place] [address]- 3104 Sep, [facility] [place] [facility] [address] [id number] [place] [address]- 1718 Sep, [facility] [place] [facility] [address] [id number] [place] [address]- 5852 Sep, [facility] [place] [facility] [address] [id number] [place] [address]- 7708 Aug, [facility] [place] [facility] [address] [id number] [place] [address]- 6418 Aug, [facility] [place] [facility] [address] [id number] [place] [address]- 9639 Jul, [facility] [place] [facility] [address] [id number] [place] [address]- 0578 Jul, [facility] [place] [facility] [address] [id number] [place] [address]- 0745 Jun, [facility] [place] [facility] [address] [id number] [place] [address]- 5540 Jun, [facility] [place] [facility] [address] [id number] [place] [address]- 2246 Jun, [facility] [place] [facility] [address] [id number] [place] [address]- 9139 Jun, [facility] [place] [facility] [address] [id number] [place] [address]- 1063 May, [facility] [place] [facility] [address] [id number] [place] [address]- 9570 May, [facility] [place] [facility] [address] [id number] [place] [address]- 3098 May, [facility] [place] [facility] [address] [id number] [place] [address]- 2453 May, [facility] [place] [facility] [address] [id number] [place] [address]- 6698 Apr, [facility] [place] [facility] [address] [id number] [place] 2043 Apr, [facility] [place] [facility] [address] [id number] [place] [address]- 0290 March, [facility] [place] [facility] [address] [id number] [place] [address]- 0473 March, [facility] [place] [facility] [address] [id number] [place] [address]- 8164 March, [facility] [place] [facility] [address] [id number] [place] [address]- 1233 March, [facility] [place] [facility] [address] [id number] [place] [address]- 1992 March, [facility] [place] [facility] [address] [id number] [place] [address]- 2335 March, [facility] [place] [facility] [address] [id number] [place] [address]- 9605 Feb, [facility] [place] [facility] [address] [id number] [place] [address]- 5275 Feb, [facility] [place] [facility] [address] [id number] [place] [address]- 2771 Feb, [facility] [place] [facility] [address] [id number] [place] [address]- 4968 Feb, [facility] [place] [facility] [address] [id number] [place] [address]- 9027 Feb, [facility] [place] [facility] [address] [id number] [place] [address]- 0920 Feb, [facility] [place] [facility] [address] [id number] [place] [address]- 1354 Feb, [facility] [place] [facility] [address] [id number] [place] [address]- 7965 Feb, [facility] [place] [facility] [address] [id number] [place] [address]- 6769 Jan, [facility] [place] [facility] [address] [id number] [place] [address]- 7964 Jan, [facility] [place] [facility] [address] [id number] [place] [address]- 5717 Jan, [facility] [place] [facility] [address] [id number] [place] [address]- 6086 Jan, [facility] [place] [facility] [address] [id number] [place] [address]- 9736 Jan, [facility] [place] [facility] [address] [id number] [place] [address]- 7299 Jan, [facility] [place] [facility] [address] [id number] [place] [address]- 1079 Jan, [facility] [place] [facility] [address] [id number] [place] [address]- 4509 Jan, [facility] [place] [facility] [address] [id number] [place] [address]- 1087 Jan, [facility] [place] [facility] [address] [id number] [place] [address]- 8953 Dec, [facility] [place] [facility] [address] [id number] [place] [address]- 3935 Dec, [facility] [place] [facility] [address] [facility] [id number] [place] [address]- 8661 Nov, [facility] [place] [facility] [address] [id number] [place] [address]- 4457 Nov, [facility] [place] [facility] [address] [id number] [place] [address]- 0795 Nov, [facility] [place] [facility] [address] [id number] [place] [address]- 1939 Nov, [facility] [place] [facility] [address] [id number] [place] [address]- 0652 Nov, [facility] [place] [facility] [address] [id number] [place] [address]- 8935 Nov, [facility] [place] [facility] [address] [id number] [place] [address]- 1762 Oct, [facility] [place] [facility] [address] [id number] [place] [address]- 9800 Oct, [facility] [place] [facility] [address] [id number] [place] [address]- 0453 Sep, [facility] [place] [facility] [address] [id number] [place] [address]- 4965 Sep, [facility] [place] [facility] [address] [id number] [place] [address]- 6996 Sep, [facility] [place] [facility] [address] [id number] [place] [address]- 3420 Sep, [facility] [place] [facility] [address] [id number] [place] [address]- 4448 Sep, [facility] [place] [facility] [address] [id number] [place] [address]- 2022 Sep, [facility] [place] [facility] [address] [id number] [place] [address]- 1755 Sep, [facility] [place] [facility] [address] [id number] [place] [address]- 2958 Sep, [facility] [place] [facility] [address] [id number] [place] [address]- 4505 Aug, [facility] [place] [facility] [address] [id number] [place] [address]- 5935 Aug, [facility] [place] [facility] [address] [id number] [place] [address]- 4910 Aug, [facility] [place] [facility] [address] [id number] [place] [address]- 5064 Jul, [facility] [place] [facility] [address] [id number] [place] [address]- 0569 Jul, [facility] [place] [facility] [address] [id number] [place] [address]- 9078 Jul, [facility] [place] [facility] [address] [id number] [place] [address]- 8627 Jun, [facility] [place] [facility] [address] [id number] [place] [address]- 4200 Jun, [facility] [place] [facility] [address] [id number] [place] [address] Jun, [facility] [place] [facility] [address] [id number] [place] [address] Jun, [facility] [place] [facility] [address] [id number] [place] [address] Jun, [facility] [place] [facility] [address] [id number] [place] [address] Jun, [facility] [place] [facility] [address] [id number] [place] [address] May, [facility] [place] [facility] [address] [id number] [place] [address] May, [facility] [place] [facility] [address] [id number] [place] [address] Apr, [facility] [place] [facility] [address] [id number] [place] [address] Apr, [facility] [place] [facility] [address] [id number] [place] [address] March, [facility] [place] [facility] [address] [id number] [place] [address] Feb, [facility] [place] [facility] [address] [id number] [place] [address] Feb, [facility] [place] [facility] [address] [id number] [place] [address] 16 Feb, 2013 [facility] [place] [facility] [address] [id number] [place] [address] Feb, [facility] [place] [facility] [address] [id number] [place] [address] 26 Jan, 2013 [facility] [address] [id number] [place] [address] 26 Jan, 2013 [facility] [address] [id number] [place] [address] 22 Jan, 2013 [facility] [address] [id number] [place] [address] Jan, [facility] [address] [id number] [place] [address] 05 Jan, 2013 [facility] [address] [id number] [place] [address] Dec, [facility] [address] [id number] [place] [address] Nov, [facility] [address] [id number] [place] [address] Nov, [facility] [address] [id number] [place] [address] Oct, [facility] [address] [id number] [place] [address] Oct, [facility] [address] [id number] [place] [address] Oct, [facility] [address] [id number] [place] [address] Oct, [facility] [address] [id number] [place] [address] Oct, [facility] [address] [id number] [place] [address] Oct, [facility] [address] [id number] [place] [address] Oct, [facility] [address] [id number] [place] [address] Oct, [facility] [place] [facility] [address] [id number] [place] [address] 30 Aug, 2012 [facility] [place] [facility] [address] [id number] [place] [address] 30 Aug, 2012 [facility] [place] [facility] [address] [id number] [place] [address] Aug, [facility] [place] [facility] [address] [id number] [place] [address] Aug, [facility] [place] [facility] [address] [id number] [place] [address] Aug, [facility] [place] [facility] [address] [id number] [place] [address] Aug, [facility] [place] [facility] [address] [facility] [id number] [place] [address] 15 Aug, 2012 [facility] [place] [facility] [address] [id number], [place] [address] 27 Jul, 2012 [facility] [place] [facility] [address] [id number] [place] [address] 27 Jul, 2012 [facility] [place] [facility] [address] [id number], [place] [address] 27 Jul, 2012 [facility] [place] [facility] [address] [facility] [id number], [place] [address] 27 Jul, 2012 [facility] [place] [facility] [address] [id number], [place] [address] 03 Jul, 2012 [facility] [place] [facility] [address] [id number] [place] [address] 28 Jun, 2012 [facility] [place] [facility] [address] [id number], [place] [address] Jun, [facility] [place] [facility] [address] [facility] [id number], [place] [address] 17 Jun, 2012 [facility] [place] [facility] [address] [id number], [place] [address] May, [facility] [place] [facility] [address] [id number] [place] [address] May, [facility] [place] [facility] [address] [id number] [place] [address] May, [facility] [place] [facility] [address] [id number] [place] [address] May, [facility] [place] [facility] [address] [id number] [place] [address] May, [facility] [place] [facility] [address] [id number] [place] [address] May, [facility] [place] [facility] [address] [id number] [place] [address] May, [facility] [place] [facility] [address] [id number] [place] [address] Apr, [facility] [place] [facility] [address] [id number] [place] [address] Apr, [facility] [place] [facility] [address] [id number] [place] [address] March, [facility] [place] [facility] [address] [id number] [place] [address] Feb, [facility] [place] [facility] [address] [id number] [place] [address] 30 Jan, 2012 [facility] [place] [facility] [address] [id number] [place] [address] Jan, [facility] [place] [facility] [address] [id number] [place] [address] Jan, [facility] [place] [facility] [address] [id number] [place] [address] Jan, [facility] [place] [facility] [address] [id number] [place] [address] Jan, [facility] [place] [facility] [address] [id number] [place] [address] 28 Jan, 2012 [facility] [place] [facility] [address] [id number] [place] [address] Jan, [facility] [place] [facility] [address] [id number] [place] [address] Jan, [facility] [place] [facility] [address] [id number] [place] [address] Jan, [facility] [place] [facility] [address] [id number] [place] [address] Jan, [facility] [place] [facility] [address] [id number] [place] [address] Dec, [facility] [place] [facility] [address] [id number] [place] [address] Dec, [facility] [place] [facility] [address] [id number] [place] [address] Dec, [facility] [place] [facility] [address] [id number] [place] [address] Dec, [facility] [place] [facility] [address] [id number] [place] [address] Dec, [facility] [place] [facility] [address] [facility] [id number] [place] [address] 17 Dec, 2011 [facility] [place] [facility] [address] [id number] [place] [address] Dec, [facility] [place] [facility] [address] [id number] [place] [address] Dec, [facility] [place] [facility] [address] [id number] [place] [address] Nov, [facility] [place] [facility] [address] [id number] [place] [address] Nov, [facility] [place] [facility] [address] [id number], [place] [address] Nov, [facility] [address] [facility] [id number], [place] [address] Oct, [facility] [address] [facility] [id number], [place] [address] Oct, [facility] [address] [facility] [id number], [place] [address] Oct, [facility] [address] [facility] [id number], [place] [address] Oct, [facility] [address] [facility] [id number], [place] [address] Sep, IMMUNIZATIONS No Known Immunizations SOCIAL HISTORY Never Assessed REASON FOR VISIT congestion/diarrhea, with cough and stomach ache, symtoms for over 3 days- Dayron [facility] PLAN OF CARE Activity Details Follow Up prn Reason: VITAL SIGNS Height 64 in 2017-08-03 Weight 211.7 lbs 2017-08-03 Temperature 98.2 degrees Fahrenheit 2017-08-03 Heart Rate 84 bpm 2017-08-03 Respiratory Rate 20 2017-08-03 BMI 36.33 kg/m2 2017-08-03 Blood pressure systolic 116 mmHg 2017-08-03 Blood pressure diastolic 74 mmHg 2017-08-03 MEDICATIONS Medication Instructions Dosage Frequency Start Date End Date Duration Status Ranitidine HCl Active Ranitidine HCl Active Metformin HCl Active Boling 10-325 MG Orally every 6 hrs 1 tablet as needed 6h 31 Jun, 2017 28 days Active Levothyroxine Sodium Active Myrbetriq Active Robitussin 12 Hour Cough 30 MG/5ML Orally every 12 hrs 10 ml as needed 12h 12 Jul, 2017 Jul, 10 days Active Boling Active Crestor 40 MG Orally Once a day 1 tablet 24h 30 Active Zofran 4 MG Orally 3 times [...] intraocular lens prosthesis Hospitalization History admitted to [facility] for bronchitis then went into cardiac arrest and was resuscitated. She was in the hospital for 7 days. 2012 Hospitalization History surgeries
--- OUTSIDE RECORDS SUMMARY | 2019-01-08 00:21 | XMS REPORT | Continuity of Care Document ---
Author Author [facility] Address Unknown Phone Unavailable Allergies Active Description Code Type Severity Reaction Onset Reported/Identified Relationship to Patient Clinical Status Yes ceftriaxone [id number] Drug Allergy Unknown N/A 02/03/2013 Yes Rocephin Drug Allergy N/A N/A 02/10/2013 Yes Rocephin Drug Allergy 02/10/2013 Yes Penicillins Drug Allergy N/A N/A 03/30/2013 Yes NSAIDS (Non-Steroidal Anti-Inflammatory Drug) Drug Allergy N/A N/A 2012 Yes ceftriaxone sodium [id number] Drug Allergy Unknown N/A 03/20/2014 Yes Penicillins [id number] Drug Allergy Unknown ANAPHALYTIC JORGITO 03/20/2014 Medications There is no data. 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 05/12/2011 Ot 414.02 CORON ATHEROSCLEROSIS AUTOLOG VEIN BYPAS 05/12/2011 Ot 440.0 AORTIC ATHEROSCLEROSIS 05/12/2011 Ot 440.20 ATHEROSCLEROSIS RAMPART ARTERIES EXTREMIT 05/12/2011 Ot 794.30 ABN CARDIOVASC STUDY NOS 05/12/2011 Ot 996.72 OTH COMPLICATIONS DUE TO OTH CARD DEVICE 05/12/2011 Ot V58.69 OTH MED,LT, CURRENT USE 07/01/2011 Ot 844.9 SPRAIN OF KNEE LEG NOS 07/01/2011 Ot 845.00 SPRAIN OF ANKLE NOS 07/01/2011 Ot 959.7 LOWER LEG INJURY NOS 07/01/2011 Ot E000.8 OTHER EXTERNAL CAUSE STATUS 07/01/2011 Ot E849.0 ACCIDENT IN HOME 07/01/2011 Ot E885.9 FALL FROM SLIPPING, TRIPPING, OR STUMBLI 09/29/2011 272.4 HYPERLIPIDEMIA 09/29/2011 401.9 HYPERTENSION ( SYSTEMIC) 09/29/2011 790.29 Hyperglycemia 09/29/2011 PATRICIA DIRECTOR OF ENTERTAINMENT, NALINI T 272.4 HYPERLIPIDEMIA 09/29/2011 PATRICIA DIRECTOR OF ENTERTAINMENT, NALINI T 401.9 HYPERTENSION (SYSTEMIC) 09/29/2011 PATRICIA DIRECTOR OF ENTERTAINMENT, NALINI T 790.29 Hyperglycemia 09/29/2011 PATRICIA DIRECTOR OF ENTERTAINMENT, NALINI T 272.4 HYPERLIPIDEMIA 09/29/2011 PATRICIA DIRECTOR OF ENTERTAINMENT, NALINI T 401.9 HYPERTENSION (SYSTEMIC) 09/29/2011 PATRICIA DIRECTOR OF ENTERTAINMENT, NALINI T 790.29 Hyperglycemia 09/29/2011 272.4 HYPERLIPIDEMIA 09/29/2011 401.9 HYPERTENSION ( SYSTEMIC) 09/29/2011 790.29 Hyperglycemia 09/29/2011 272.4 HYPERLIPIDEMIA 09/29/2011 401.9 HYPERTENSION ( SYSTEMIC) 09/29/2011 790.29 Hyperglycemia 09/29/2011 272.4 HYPERLIPIDEMIA 09/29/2011 401.9 HYPERTENSION ( SYSTEMIC) 09/29/2011 790.29 Hyperglycemia 09/29/2011 272.4 HYPERLIPIDEMIA 09/29/2011 401.9 HYPERTENSION ( SYSTEMIC) 09/29/2011 790.29 Hyperglycemia 09/29/2011 272.4 HYPERLIPIDEMIA 09/29/2011 401.9 HYPERTENSION ( SYSTEMIC) 09/29/2011 790.29 Hyperglycemia 09/29/2011 272.4 HYPERLIPIDEMIA 09/29/2011 401.9 HYPERTENSION ( SYSTEMIC) 09/29/2011 790.29 Hyperglycemia 09/29/2011 272.4 HYPERLIPIDEMIA 09/29/2011 401.9 HYPERTENSION ( SYSTEMIC) 09/29/2011 790.29 Hyperglycemia 09/29/2011 272.4 HYPERLIPIDEMIA 09/29/2011 401.9 HYPERTENSION ( SYSTEMIC) 09/29/2011 790.29 Hyperglycemia 09/29/2011 272.4 HYPERLIPIDEMIA 09/29/2011 401.9 HYPERTENSION ( SYSTEMIC) 09/29/2011 790.29 Hyperglycemia 09/29/2011 BUFFY PALOMINO MD 272.4 HYPERLIPIDEMIA 09/29/2011 BUFFY PALOMINO MD 401.9 HYPERTENSION (SYSTEMIC) 09/29/2011 BUFFY PALOMINO MD 790.29 Hyperglycemia 09/29/2011 NALINI GOMEZ APRN T 272.4 HYPERLIPIDEMIA 09/29/2011 PATRICIA DIRECTOR OF ENTERTAINMENT, NALINI T 401.9 HYPERTENSION (SYSTEMIC) 09/29/2011 PATRICIA DIRECTOR OF ENTERTAINMENT, NALINI T 790.29 Hyperglycemia 09/29/2011 PATRICIA DIRECTOR OF ENTERTAINMENT, NALINI T 272.4 HYPERLIPIDEMIA 09/29/2011 PATRICIA DIRECTOR OF ENTERTAINMENT NALINI T 401.9 HYPERTENSION (SYSTEMIC) 09/29/2011 PATRICIA REDMOND NALINI T 790.29 Hyperglycemia 09/29/2011 PATRICIA DIRECTOR OF ENTERTAINMENT, NALINI T 272.4 HYPERLIPIDEMIA 09/29/2011 PATRICIA DIRECTOR OF ENTERTAINMENT, NALINI T 401.9 HYPERTENSION (SYSTEMIC) 09/29/2011 PATRICIA REDMOND NALINI T 790.29 Hyperglycemia 09/29/2011 PATRICIA REDMOND NALINI T 272.4 HYPERLIPIDEMIA 09/29/2011 PATRICIA REDMOND NALINI T 401.9 HYPERTENSION (SYSTEMIC) 09/29/2011 NALINI GOMEZ APRN T 790.29 Hyperglycemia 09/29/2011 BUFFY PALOMINO MD 272.4 HYPERLIPIDEMIA 09/29/2011 BUFFY PALOMINO MD 401.9 HYPERTENSION (SYSTEMIC) 09/29/2011 BUFFY PALOMINO MD 790.29 Hyperglycemia 09/29/2011 DUPREE DO, KUSHAL K 272.4 HYPERLIPIDEMIA 09/29/2011 DUPREE DO, KUSHAL K 401.9 HYPERTENSION (SYSTEMIC) 09/29/2011 DUPREE DO, KUSHAL K 790.29 Hyperglycemia 09/29/2011 NALINI GOMEZ APRN T 272.4 HYPERLIPIDEMIA 09/29/2011 NALINI GOMEZ APRN T 401.9 HYPERTENSION (SYSTEMIC) 09/29/2011 NALINI GOMEZ APRN T 790.29 Hyperglycemia 09/29/2011 BUFFY PALOMINO MD 272.4 HYPERLIPIDEMIA 09/29/2011 BUFFY PALOMINO MD 401.9 HYPERTENSION (SYSTEMIC) 09/29/2011 BUFFY PALOMINO MD 790.29 Hyperglycemia 09/29/2011 NALINI GOMEZ APRN T 272.4 HYPERLIPIDEMIA 09/29/2011 PATRICIA REDMOND NALINI T 401.9 HYPERTENSION (SYSTEMIC) 09/29/2011 NALINI GOMEZ APRN T 790.29 Hyperglycemia 09/29/2011 NALINI GOMEZ APRN T 272.4 HYPERLIPIDEMIA 09/29/2011 PATRICIA REDMOND NALINI T 401.9 HYPERTENSION (SYSTEMIC) 09/29/2011 NALINI GOMEZ APRN T 790.29 Hyperglycemia 09/29/2011 LIU DIRECTOR OF ENTERTAINMENT, SHIN R 272.4 HYPERLIPIDEMIA 09/29/2011 LIU DIRECTOR OF ENTERTAINMENT, SHIN R 401.9 HYPERTENSION (SYSTEMIC) 09/29/2011 LIU DIRECTOR OF ENTERTAINMENT, SHIN R 790.29 Hyperglycemia 09/29/2011 LIU DIRECTOR OF ENTERTAINMENT, SHIN R 272.4 HYPERLIPIDEMIA 09/29/2011 LIU DIRECTOR OF ENTERTAINMENT, SHIN R 401.9 HYPERTENSION (SYSTEMIC) 09/29/2011 LIU DIRECTOR OF ENTERTAINMENT, SHIN R 790.29 Hyperglycemia 09/29/2011 NALINI GOMEZ APRN T 272.4 HYPERLIPIDEMIA 09/29/2011 PATRICIA CONTINNALINI T 401.9 HYPERTENSION (SYSTEMIC) 09/29/2011 NALINI GOMEZ APRN T 790.29 Hyperglycemia 09/29/2011 PAMELLA DIRECTOR OF ENTERTAINMENT, SHAINA S 272.4 HYPERLIPIDEMIA 09/29/2011 PAMELLA DIRECTOR OF ENTERTAINMENT, SHAINA S 401.9 HYPERTENSION (SYSTEMIC) 09/29/2011 PAMELLA DIRECTOR OF ENTERTAINMENT, SHAINA S 790.29 Hyperglycemia 09/29/2011 NALINI GOMEZ APRN T 272.4 HYPERLIPIDEMIA 09/29/2011 PATRICIA CONTINNALINI T 401.9 HYPERTENSION (SYSTEMIC) 09/29/2011 NALINI GOMEZ APRN T 790.29 Hyperglycemia 09/29/2011 PAMELLA DIRECTOR OF ENTERTAINMENT, SHAINA S 272.4 HYPERLIPIDEMIA 09/29/2011 PAMELLA DIRECTOR OF ENTERTAINMENT, SHAINA S 401.9 HYPERTENSION (SYSTEMIC) 09/29/2011 PAMELLA DIRECTOR OF ENTERTAINMENT, SHAINA S 790.29 Hyperglycemia 11/04/2011 724.5 BACK PAIN, GENERAL 11/04/2011 729.5 Pain In Limb 11/04/2011 788.30 URINARY INCONTINENCE UNSPECIFIED 11/04/2011 NALINI GOMEZ APRN T 724.5 BACK PAIN, GENERAL 11/04/2011 NALINI GOMEZ APRN T 729.5 Pain In Limb 11/04/2011 NALINI GOMEZ APRN T 788.30 URINARY INCONTINENCE UNSPECIFIED 11/04/2011 NALINI GOMEZ APRN T 724.5 BACK PAIN, GENERAL 11/04/2011 NALINI GOMEZ APRN 729.5 Pain In Limb 11/04/2011 NALINI GOMEZ APRN T 788.30 URINARY INCONTINENCE UNSPECIFIED 11/04/2011 724.5 BACK PAIN, GENERAL 11/04/2011 729.5 Pain In Limb 11/04/2011 788.30 URINARY INCONTINENCE UNSPECIFIED 11/04/2011 724.5 BACK PAIN, GENERAL 11/04/2011 729.5 Pain In Limb 11/04/2011 788.30 URINARY INCONTINENCE UNSPECIFIED 11/04/2011 724.5 BACK PAIN, GENERAL 11/04/2011 729.5 Pain In Limb 11/04/2011 788.30 URINARY INCONTINENCE UNSPECIFIED 11/04/2011 724.5 BACK PAIN, GENERAL 11/04/2011 729.5 Pain In Limb 11/04/2011 788.30 URINARY INCONTINENCE UNSPECIFIED 11/04/2011 724.5 BACK PAIN, GENERAL 11/04/2011 729.5 Pain In Limb 11/04/2011 788.30 URINARY INCONTINENCE UNSPECIFIED 11/04/2011 724.5 BACK PAIN, GENERAL 11/04/2011 729.5 Pain In Limb 11/04/2011 788.30 URINARY INCONTINENCE UNSPECIFIED 11/04/2011 724.5 BACK PAIN, GENERAL 11/04/2011 729.5 Pain In Limb 11/04/2011 788.30 URINARY INCONTINENCE UNSPECIFIED 11/04/2011 724.5 BACK PAIN, GENERAL 11/04/2011 729.5 Pain In Limb 11/04/2011 788.30 URINARY INCONTINENCE UNSPECIFIED 11/04/2011 724.5 BACK PAIN, GENERAL 11/04/2011 729.5 Pain In Limb 11/04/2011 788.30 URINARY INCONTINENCE UNSPECIFIED 11/04/2011 BUFFY PALOMINO MD 724.5 BACK PAIN, GENERAL 11/04/2011 BUFFY PALOMINO MD 729.5 Pain In Limb 11/04/2011 BUFFY PALOMINO MD 788.30 URINARY INCONTINENCE UNSPECIFIED 11/04/2011 NALINI GOMEZ APRN T 724.5 BACK PAIN, GENERAL 11/04/2011 NALIIN GOMEZ APRN T 729.5 Pain In Limb 11/04/2011 NALINI GOMEZ APRN T 788.30 URINARY INCONTINENCE UNSPECIFIED 11/04/2011 NALINI GOMEZ APRN T 724.5 BACK PAIN, GENERAL 11/04/2011 NALINI GOMEZ APRN T 729.5 Pain In Limb 11/04/2011 NALINI GOMEZ APRN T 788.30 URINARY INCONTINENCE UNSPECIFIED 11/04/2011 NALINI GOMEZ APRN 724.5 BACK PAIN, GENERAL 11/04/2011 NALINI GOMEZ APRN 729.5 Pain In Limb 11/04/2011 NALINI GOMEZ APRN T 788.30 URINARY INCONTINENCE UNSPECIFIED 11/04/2011 NALINI GOMEZ APRN 724.5 BACK PAIN, GENERAL 11/04/2011 NALINI GOMEZ APRN 729.5 Pain In Limb 11/04/2011 NALINI GOMEZ APRN 788.30 URINARY INCONTINENCE UNSPECIFIED 11/04/2011 BUFFY PALOMINO MD4.5 BACK PAIN, GENERAL 11/04/2011 BUFFY PALOMINO MD9.5 Pain In Limb 11/04/2011 BUFFY PALOMINO MD 788.30 URINARY INCONTINENCE UNSPECIFIED 11/04/2011 DUPREE DO, KUSHAL K 724.5 BACK PAIN, GENERAL 11/04/2011 DUPREE DO, KUSHAL K 729.5 Pain In Limb 11/04/2011 DUPREE DO, KUSHAL K 788.30 URINARY INCONTINENCE UNSPECIFIED 11/04/2011 NALINI GOMEZ APRN 724.5 BACK PAIN, GENERAL 11/04/2011 NALINI GOMEZ APRN 729.5 Pain In Limb 11/04/2011 NALINI GOMEZ APRN 788.30 URINARY INCONTINENCE UNSPECIFIED 11/04/2011 BUFFY PALOMINO MD4.5 BACK PAIN, GENERAL 11/04/2011 BUFFY PALOMION MD9.5 Pain In Limb 11/04/2011 BUFFY PALOMINO MD 788.30 URINARY INCONTINENCE UNSPECIFIED 11/04/2011 NALINI GOMEZ APRN 724.5 BACK PAIN, GENERAL 11/04/2011 NALINI GOMEZ APRN 729.5 Pain In Limb 11/04/2011 NALINI GOMEZ APRN 788.30 URINARY INCONTINENCE UNSPECIFIED 11/04/2011 NALINI GOMEZ APRN 724.5 BACK PAIN, GENERAL 11/04/2011 NALINI GOMEZ APRN 729.5 Pain In Limb 11/04/2011 NALINI GOMEZ APRN T 788.30 URINARY INCONTINENCE UNSPECIFIED 11/04/2011 SHIN LIU APRN R 724.5 BACK PAIN, GENERAL 11/04/2011 SHIN LIU APRN R 729.5 Pain In Limb 11/04/2011 LIU DIRECTOR OF ENTERTAINMENT, HSIN R 788.30 URINARY INCONTINENCE UNSPECIFIED 11/04/2011 LIU DIRECTOR OF ENTERTAINMENT, SHIN R 724.5 BACK PAIN, GENERAL 11/04/2011 ALEXA DIRECTOR OF ENTERTAINMENT, SHIN R 729.5 Pain In Limb 11/04/2011 ALEXA DIRECTOR OF ENTERTAINMENT, SHIN R 788.30 URINARY INCONTINENCE UNSPECIFIED 11/04/2011 NALINI GOMEZ APRN T 724.5 BACK PAIN, GENERAL 11/04/2011 NALINI GOMEZ APRN T 729.5 Pain In Limb 11/04/2011 NALINI GOMEZ APRN T 788.30 URINARY INCONTINENCE UNSPECIFIED 11/04/2011 PAMELLA REDMOND SHAINA S 724.5 BACK PAIN, GENERAL 11/04/2011 CAT CAN APRNA S 729.5 Pain In Limb 11/04/2011 ANNALISE CAN APRNNDA S 788.30 URINARY INCONTINENCE UNSPECIFIED 11/04/2011 NALINI GOMEZ APRN T 724.5 BACK PAIN, GENERAL 11/04/2011 NALINI GOMEZ APRN T 729.5 Pain In Limb 11/04/2011 NALINI GOMEZ APRN T 788.30 URINARY INCONTINENCE UNSPECIFIED 11/04/2011 PAMELLA REDMOND SHAINA S 724.5 BACK PAIN, GENERAL 11/04/2011 CAT CAN APRNA S 729.5 Pain In Limb 11/04/2011 ANNALISE CAN APRNNDA S 788.30 URINARY INCONTINENCE UNSPECIFIED 11/18/2011 493.90 ASTHMA UNSPECIFIED 11/18/2011 625.6 STRESS INCONTINENCE FEMALE 11/18/2011 NALINI GOMEZ APRN 493.90 ASTHMA UNSPECIFIED 11/18/2011 NALINI GOMEZ APRN 625.6 STRESS INCONTINENCE FEMALE 11/18/2011 NALINI GOMEZ APRN 493.90 ASTHMA UNSPECIFIED 11/18/2011 NALINI GOMEZ APRN 625.6 STRESS INCONTINENCE FEMALE 11/18/2011 493.90 ASTHMA UNSPECIFIED 11/18/2011 625.6 STRESS INCONTINENCE FEMALE 11/18/2011 493.90 ASTHMA UNSPECIFIED 11/18/2011 625.6 STRESS INCONTINENCE FEMALE 11/18/2011 493.90 ASTHMA UNSPECIFIED 11/18/2011 625.6 STRESS INCONTINENCE FEMALE 11/18/2011 493.90 ASTHMA UNSPECIFIED 11/18/2011 625.6 STRESS INCONTINENCE FEMALE 11/18/2011 493.90 ASTHMA UNSPECIFIED 11/18/2011 625.6 STRESS INCONTINENCE FEMALE 11/18/2011 493.90 ASTHMA UNSPECIFIED 11/18/2011 625.6 STRESS INCONTINENCE FEMALE 11/18/2011 493.90 ASTHMA UNSPECIFIED 11/18/2011 625.6 STRESS INCONTINENCE FEMALE 11/18/2011 493.90 ASTHMA UNSPECIFIED 11/18/2011 625.6 STRESS INCONTINENCE FEMALE 11/18/2011 493.90 ASTHMA UNSPECIFIED 11/18/2011 625.6 STRESS INCONTINENCE FEMALE 11/18/2011 BUFFY PALOMINO MD 493.90 ASTHMA UNSPECIFIED 11/18/2011 BUFFY PALOMINO MD 625.6 STRESS INCONTINENCE FEMALE 11/18/2011 NALINI GOMEZ APRN 493.90 ASTHMA UNSPECIFIED 11/18/2011 NALINI GOMEZ APRN 625.6 STRESS INCONTINENCE FEMALE 11/18/2011 NALINI GOMEZ APRN 493.90 ASTHMA UNSPECIFIED 11/18/2011 NALINI GOMEZ APRN 625.6 STRESS INCONTINENCE FEMALE 11/18/2011 NALINI GOMEZ APRN T 493.90 ASTHMA UNSPECIFIED 11/18/2011 NALINI GOMEZ APRN T 625.6 STRESS INCONTINENCE FEMALE 11/18/2011 NALINI GOMEZ APRN T 493.90 ASTHMA UNSPECIFIED 11/18/2011 NALINI GOMEZ APRN 625.6 STRESS INCONTINENCE FEMALE 11/18/2011 BUFFY PALOMINO MD 493.90 ASTHMA UNSPECIFIED 11/18/2011 BUFFY PALOMINO MD 625.6 STRESS INCONTINENCE FEMALE 11/18/2011 DUPREE DO KUSHAL K 493.90 ASTHMA UNSPECIFIED 11/18/2011 DUPREE DO, KUSHAL K 625.6 STRESS INCONTINENCE FEMALE 11/18/2011 NALINI GOMEZ APRN T 493.90 ASTHMA UNSPECIFIED 11/18/2011 NALINI GOMEZ APRN T 625.6 STRESS INCONTINENCE FEMALE 11/18/2011 BUFFY PALOMINO MD 493.90 ASTHMA UNSPECIFIED 11/18/2011 BUFFY PALOMINO MD 625.6 STRESS INCONTINENCE FEMALE 11/18/2011 NALINI GOMEZ APRN 493.90 ASTHMA UNSPECIFIED 11/18/2011 NALINI GOMEZ APRN T 625.6 STRESS INCONTINENCE FEMALE 11/18/2011 NALINI GOMEZ APRN T 493.90 ASTHMA UNSPECIFIED 11/18/2011 NALINI GOMEZ APRN 625.6 STRESS INCONTINENCE FEMALE 11/18/2011 LIU DIRECTOR OF ENTERTAINMENT, SHIN R 493.90 ASTHMA UNSPECIFIED 11/18/2011 ALEXA REDMOND, SHIN R 625.6 STRESS INCONTINENCE FEMALE 11/18/2011 SHIN LIU APRN R 493.90 ASTHMA UNSPECIFIED 11/18/2011 SHIN LIU APRN R 625.6 STRESS INCONTINENCE FEMALE 11/18/2011 NALINI GOMEZ APRN 493.90 ASTHMA UNSPECIFIED 11/18/2011 NALINI GOMEZ APRN 625.6 STRESS INCONTINENCE FEMALE 11/18/2011 SHAINA CAN APRN S 493.90 ASTHMA UNSPECIFIED 11/18/2011 SHAINA CAN APRN S 625.6 STRESS INCONTINENCE FEMALE 11/18/2011 NALINI GOMEZ APRN 493.90 ASTHMA UNSPECIFIED 11/18/2011 NALINI GOMEZ APRN 625.6 STRESS INCONTINENCE FEMALE 11/18/2011 SHAINA CAN APRN S 493.90 ASTHMA UNSPECIFIED 11/18/2011 SHAINA CAN APRN S 625.6 STRESS INCONTINENCE FEMALE 12/16/2011 Ot 244.9 HYPOTHYROIDISM NOS 12/16/2011 Ot 250.00 DIAB ALLY WO COMPL, TYPE II OR UNSPEC TY 12/16/2011 Ot 272.4 HYPERLIPIDEMIA NEC/NOS 12/16/2011 Ot 275.2 DIS MAGNESIUM METABOLISM 12/16/2011 Ot 401.9 HYPERTENSION NOS 12/16/2011 Ot 414.00 CORON ATHEROSCLER NOS TYPE VESSEL, NATIV 12/16/2011 Ot 496 CHR AIRWAY OBSTRUCT NEC 12/16/2011 Ot 530.81 ESOPHAGEAL REFLUX 12/16/2011 Ot 593.9 RENAL URETERAL DIS NOS 12/16/2011 Ot 715.95 OSTEOARTHROS NOS-PELVIS 12/16/2011 Ot 726.71 ACHILLES TENDINITIS 12/16/2011 Ot 786.59 CHEST PAIN NEC 12/16/2011 Ot 787.02 NAUSEA ALONE 12/16/2011 Ot V45.81 AORTOCORONARY BYPASS 12/16/2011 Ot V58.69 OTH MED,LT, CURRENT USE 12/22/2011 276.51 Dehydration 12/22/2011 NALINI GOMEZ APRN 276.51 Dehydration 12/22/2011 NALINI GOMEZ APRN 276.51 Dehydration 12/22/2011 276.51 Dehydration 12/22/2011 276.51 Dehydration 12/22/2011 276.51 Dehydration 12/22/2011 276.51 Dehydration 12/22/2011 276.51 Dehydration 12/22/2011 276.51 Dehydration 12/22/2011 276.51 Dehydration 12/22/2011 276.51 Dehydration 12/22/2011 276.51 Dehydration 12/22/2011 BUFFY PALOMINO MD 276.51 Dehydration 12/22/2011 NALINI GOMEZ APRN 276.51 Dehydration 12/22/2011 NALINI GOMEZ APRN 276.51 Dehydration 12/22/2011 NALINI GOMEZ APRN 276.51 Dehydration 12/22/2011 NALINI GOMEZ APRN 276.51 Dehydration 12/22/2011 BUFFY PALOMINO MD 276.51 Dehydration 12/22/2011 DUPREE KUSHAL URBANO K 276.51 Dehydration 12/22/2011 NALINI GOMEZ APRN 276.51 Dehydration 12/22/2011 BUFFY PALOMINO MD 276.51 Dehydration 12/22/2011 NALINI GOMEZ APRN 276.51 Dehydration 12/22/2011 NALINI GOMEZ APRN 276.51 Dehydration 12/22/2011 SHIN LIU APRN R 276.51 Dehydration 12/22/2011 SHIN LIU APRN R 276.51 Dehydration 12/22/2011 NALINI GOMEZ APRN 276.51 Dehydration 12/22/2011 SHAINA CAN APRN S 276.51 Dehydration 12/22/2011 NALINI GOMEZ APRN 276.51 Dehydration 12/22/2011 SHAINA CAN APRN S 276.51 Dehydration 01/01/2012 355.5 TARSUS TUNNEL SYNDROME 01/01/2012 726.71 Tendonitis Achilles 01/01/2012 726.91 EXOSTOSIS 01/01/2012 NALINI GOMEZ APRN 355.5 TARSUS TUNNEL SYNDROME 01/01/2012 NALINI GOMEZ APRN 726.71 Tendonitis Achilles 01/01/2012 NALINI GOMEZ APRN 726.91 EXOSTOSIS 01/01/2012 NALINI GOMEZ APRN 355.5 TARSUS TUNNEL SYNDROME 01/01/2012 NALINI GOMEZ APRN 726.71 Tendonitis Achilles 01/01/2012 NALINI GOMEZ APRN 726.91 EXOSTOSIS 01/01/2012 355.5 TARSUS TUNNEL SYNDROME 01/01/2012 726.71 Tendonitis Achilles 01/01/2012 726.91 EXOSTOSIS 01/01/2012 355.5 TARSUS TUNNEL SYNDROME 01/01/2012 726.71 Tendonitis Achilles 01/01/2012 726.91 EXOSTOSIS 01/01/2012 355.5 TARSUS TUNNEL SYNDROME 01/01/2012 726.71 Tendonitis Achilles 01/01/2012 726.91 EXOSTOSIS 01/01/2012 355.5 TARSUS TUNNEL SYNDROME 01/01/2012 726.71 Tendonitis Achilles 01/01/2012 726.91 EXOSTOSIS 01/01/2012 355.5 TARSUS TUNNEL SYNDROME 01/01/2012 726.71 Tendonitis Achilles 01/01/2012 726.91 EXOSTOSIS 01/01/2012 355.5 TARSUS TUNNEL SYNDROME 01/01/2012 726.71 Tendonitis Achilles 01/01/2012 726.91 EXOSTOSIS 01/01/2012 355.5 TARSUS TUNNEL SYNDROME 01/01/2012 726.71 Tendonitis Achilles 01/01/2012 726.91 EXOSTOSIS 01/01/2012 355.5 TARSUS TUNNEL SYNDROME 01/01/2012 726.71 Tendonitis Achilles 01/01/2012 726.91 EXOSTOSIS 01/01/2012 355.5 TARSUS TUNNEL SYNDROME 01/01/2012 726.71 Tendonitis Achilles 01/01/2012 726.91 EXOSTOSIS 01/01/2012 BUFFY PALOMINO MD 355.5 TARSUS TUNNEL SYNDROME 01/01/2012 BUFFY PALOMINO MD 726.71 Tendonitis Achilles 01/01/2012 BUFFY PALOMINO MD 726.91 EXOSTOSIS 01/01/2012 NALINI GOMEZ APRN 355.5 TARSUS TUNNEL SYNDROME 01/01/2012 NALINI GOMEZ APRN 726.71 Tendonitis Achilles 01/01/2012 NALINI GOMEZ APRN 726.91 EXOSTOSIS 01/01/2012 NALINI GOMEZ APRN 355.5 TARSUS TUNNEL SYNDROME 01/01/2012 NALINI GOMEZ APRN 726.71 Tendonitis Achilles 01/01/2012 NALINI GOMEZ APRN 726.91 EXOSTOSIS 01/01/2012 NALINI GOMEZ APRN 355.5 TARSUS TUNNEL SYNDROME 01/01/2012 NALINI GOMEZ APRN 726.71 Tendonitis Achilles 01/01/2012 NALINI GOMEZ APRN 726.91 EXOSTOSIS 01/01/2012 NALINI GOMEZ APRN 355.5 TARSUS TUNNEL SYNDROME 01/01/2012 NALINI GOMEZ APRN 726.71 Tendonitis Achilles 01/01/2012 NALINI GOMEZ APRN 726.91 EXOSTOSIS 01/01/2012 BUFFY PALOMINO MD 355.5 TARSUS TUNNEL SYNDROME 01/01/2012 BUFFY PALOMINO MD 726.71 Tendonitis Achilles 01/01/2012 BUFFY PALOMINO MD 726.91 EXOSTOSIS 01/01/2012 DUPREE DO, KUSHAL K 355.5 TARSUS TUNNEL SYNDROME 01/01/2012 DUPREE DO, KUSHAL K 726.71 Tendonitis Achilles 01/01/2012 DURPEE DO, KUSHAL K 726.91 EXOSTOSIS 01/01/2012 NALINI GOMEZ APRN 355.5 TARSUS TUNNEL SYNDROME 01/01/2012 NALINI GOMEZ APRN 726.71 Tendonitis Achilles 01/01/2012 NALINI GOMEZ APRN 726.91 EXOSTOSIS 01/01/2012 BUFFY PALOMINO MD.5 TARSUS TUNNEL SYNDROME 01/01/2012 BUFFY PALOMINO MD 726.71 Tendonitis Achilles 01/01/2012 BUFFY PALOMINO MD 726.91 EXOSTOSIS 01/01/2012 NALINI GOMEZ APRN 355.5 TARSUS TUNNEL SYNDROME 01/01/2012 NALINI GOMEZ APRN 726.71 Tendonitis Achilles 01/01/2012 NALINI GOMEZ APRN 726.91 EXOSTOSIS 01/01/2012 NALINI GOMEZ APRN 355.5 TARSUS TUNNEL SYNDROME 01/01/2012 NALINI GOMEZ APRN 726.71 Tendonitis Achilles 01/01/2012 NALINI GOMEZ APRN 726.91 EXOSTOSIS 01/01/2012 SHIN LIU APRN R 355.5 TARSUS TUNNEL SYNDROME 01/01/2012 ALEXA REDMOND SHIN R 726.71 Tendonitis Achilles 01/01/2012 ALEXA REDMOND SHIN R 726.91 EXOSTOSIS 01/01/2012 JACQUELYN LIU APRNRICIA R 355.5 TARSUS TUNNEL SYNDROME 01/01/2012 JACQUELYN LIU APRNRICIA R 726.71 Tendonitis Achilles 01/01/2012 JACQUELYN LIU APRNRICIA R 726.91 EXOSTOSIS 01/01/2012 NALINI GOMEZ APRN 355.5 TARSUS TUNNEL SYNDROME 01/01/2012 NALINI GOMEZ APRN T 726.71 Tendonitis Achilles 01/01/2012 NALINI GOMEZ APRN T 726.91 EXOSTOSIS 01/01/2012 PAMELLA REDMOND, SHAINA S 355.5 TARSUS TUNNEL SYNDROME 01/01/2012 PAMELLA DIRECTOR OF ENTERTAINMENT, SHAINA S 726.71 Tendonitis Achilles 01/01/2012 PAMELLA CONTIN, SHAINA S 726.91 EXOSTOSIS 01/01/2012 NALINI GOMEZ APRN T 355.5 TARSUS TUNNEL SYNDROME 01/01/2012 NALINI GOMEZ APRN T 726.71 Tendonitis Achilles 01/01/2012 NALINI GOMEZ APRN T 726.91 EXOSTOSIS 01/01/2012 ANNALISE CAN APRNNDA S 355.5 TARSUS TUNNEL SYNDROME 01/01/2012 PAMELLA REDMOND, SHAINA S 726.71 Tendonitis Achilles 01/01/2012 PAMELLA CONTIN, SHAINA S 726.91 EXOSTOSIS 01/08/2012 466.0 BRONCHITIS, ACUTE 01/08/2012 NALINI GOMEZ APRN 466.0 BRONCHITIS, ACUTE 01/08/2012 NALINI GOMEZ APRN 466.0 BRONCHITIS, ACUTE 01/08/2012 466.0 BRONCHITIS, ACUTE 01/08/2012 466.0 BRONCHITIS, ACUTE 01/08/2012 466.0 BRONCHITIS, ACUTE 01/08/2012 466.0 BRONCHITIS, ACUTE 01/08/2012 466.0 BRONCHITIS, ACUTE 01/08/2012 466.0 BRONCHITIS, ACUTE 01/08/2012 466.0 BRONCHITIS, ACUTE 01/08/2012 466.0 BRONCHITIS, ACUTE 01/08/2012 466.0 BRONCHITIS, ACUTE 01/08/2012 UBFFY PALOMINO MD 466.0 BRONCHITIS, ACUTE 01/08/2012 NALINI GOMEZ APRN 466.0 BRONCHITIS, ACUTE 01/08/2012 NALINI GOMEZ APRN 466.0 BRONCHITIS, ACUTE 01/08/2012 NALINI GOMEZ APRN 466.0 BRONCHITIS, ACUTE 01/08/2012 NALINI GOMEZ APRN 466.0 BRONCHITIS, ACUTE 01/08/2012 BUFFY PALOMINO MD 466.0 BRONCHITIS, ACUTE 01/08/2012 KUSHAL DUPREE DO 466.0 BRONCHITIS, ACUTE 01/08/2012 NALINI GOMEZ APRN 466.0 BRONCHITIS, ACUTE 01/08/2012 BUFFY PALOMINO MD 466.0 BRONCHITIS, ACUTE 01/08/2012 NALINI GOMEZ APRN 466.0 BRONCHITIS, ACUTE 01/08/2012 NALINI GOMEZ APRN 466.0 BRONCHITIS, ACUTE 01/08/2012 JACQUELYN LIU APRNRICIA R 466.0 BRONCHITIS, ACUTE 01/08/2012 ALEXA REDMOND SHIN R 466.0 BRONCHITIS, ACUTE 01/08/2012 NALINI GOMEZ APRN 466.0 BRONCHITIS, ACUTE 01/08/2012 SHAINA CAN APRN S 466.0 BRONCHITIS, ACUTE 01/08/2012 NALINI GOMEZ APRN 466.0 BRONCHITIS, ACUTE 01/08/2012 PAMELLA REDMOND SHANIA S 466.0 BRONCHITIS, ACUTE 02/04/2012 Ot 272.4 HYPERLIPIDEMIA NEC/NOS 02/04/2012 Ot 401.9 HYPERTENSION NOS 02/04/2012 Ot 414.01 CORONARY ATHEROSCLEROSIS OF RAMPART CORON 02/04/2012 Ot 440.21 ATHEROSCL RAMPART ARTER EXTREM W INTERMIT 02/04/2012 Ot V45.81 AORTOCORONARY BYPASS 03/04/2012 726.73 HEEL SPUR 03/04/2012 NALINI GOMEZ APRN 726.73 HEEL SPUR 03/04/2012 NALINI GOMEZ APRN 726.73 HEEL SPUR 03/04/2012 726.73 HEEL SPUR 03/04/2012 726.73 HEEL SPUR 03/04/2012 726.73 HEEL SPUR 03/04/2012 726.73 HEEL SPUR 03/04/2012 726.73 HEEL SPUR 03/04/2012 726.73 HEEL SPUR 03/04/2012 726.73 HEEL SPUR 03/04/2012 726.73 HEEL SPUR 03/04/2012 726.73 HEEL SPUR 03/04/2012 BUFFY PALOMINO MD 726.73 HEEL SPUR 03/04/2012 NALINI GOMEZ APRN 726.73 HEEL SPUR 03/04/2012 NALINI GOMEZ APRN 726.73 HEEL SPUR 03/04/2012 NALINI GOMEZ APRN 726.73 HEEL SPUR 03/04/2012 NALINI GOMEZ APRN 726.73 HEEL SPUR 03/04/2012 BUFFY PALOMINO MD 726.73 HEEL SPUR 03/04/2012 DUPREE DO, KUSHAL K 726.73 HEEL SPUR 03/04/2012 NALINI GOMEZ APRN T 726.73 HEEL SPUR 03/04/2012 BUFFY PALOMINO MD 726.73 HEEL SPUR 03/04/2012 NALINI GOMEZ APRN 726.73 HEEL SPUR 03/04/2012 NALINI GOMEZ APRN 726.73 HEEL SPUR 03/04/2012 ALEXA REDMOND SHIN R 726.73 HEEL SPUR 03/04/2012 ALEXA REDMOND SHIN R 726.73 HEEL SPUR 03/04/2012 NALINI GOMEZ APRN T 726.73 HEEL SPUR 03/04/2012 PAMELLA REDMOND SHAINA S 726.73 HEEL SPUR 03/04/2012 NALINI GOMEZ APRN 726.73 HEEL SPUR 03/04/2012 PAMELLA REDMOND, SHAINA S 726.73 HEEL SPUR 04/13/2012 Ot 719.46 JOINT PAIN-L /LEG 04/13/2012 Ot 787.20 DYSPHAGIA, UNSPECIFIED 04/28/2012 Ot 250.00 DIAB ALLY WO COMPL, TYPE II OR UNSPEC TY 04/28/2012 Ot 401.9 HYPERTENSION NOS 04/28/2012 Ot 414.00 CORON ATHEROSCLER NOS TYPE VESSEL, NATIV 04/28/2012 Ot 784.59 OTHER SPEECH DISTURBANCE 04/28/2012 Ot 787.20 DYSPHAGIA, UNSPECIFIED 04/28/2012 Ot V58.69 OTH MED,LT, CURRENT USE 06/13/2012 780.09 Alteration Of Consciousness Other 06/13/2012 NALINI GOMEZ APRN 780.09 Alteration Of Consciousness Other 06/13/2012 NALINI GOMEZ APRN 780.09 Alteration Of Consciousness Other 06/13/2012 780.09 Alteration Of Consciousness Other 06/13/2012 780.09 Alteration Of Consciousness Other 06/13/2012 780.09 Alteration Of Consciousness Other 06/13/2012 780.09 Alteration Of Consciousness Other 06/13/2012 780.09 Alteration Of Consciousness Other 06/13/2012 780.09 Alteration Of Consciousness Other 06/13/2012 780.09 Alteration Of Consciousness Other 06/13/2012 780.09 Alteration Of Consciousness Other 06/13/2012 780.09 Alteration Of Consciousness Other 06/13/2012 BUFFY PALOMINO MD 780.09 Alteration Of Consciousness Other 06/13/2012 NALINI GOMEZ APRN 780.09 Alteration Of Consciousness Other 06/13/2012 NALINI GOMEZ APRN 780.09 Alteration Of Consciousness Other 06/13/2012 NALINI GOMEZ APRN 780.09 Alteration Of Consciousness Other 06/13/2012 NALINI GOMEZ APRN 780.09 Alteration Of Consciousness Other 06/13/2012 BUFFY PALOMINO MD 780.09 Alteration Of Consciousness Other 06/13/2012 KUSHAL DUPREE DO 780.09 Alteration Of Consciousness Other 06/13/2012 NALINI GOMEZ APRN 780.09 Alteration Of Consciousness Other 06/13/2012 BUFFY PALOMINO MD 780.09 Alteration Of Consciousness Other 06/13/2012 NALINI GOMEZ APRN 780.09 Alteration Of Consciousness Other 06/13/2012 NALINI GOMEZ APRN 780.09 Alteration Of Consciousness Other 06/13/2012 SHIN LIU APRN 780.09 Alteration Of Consciousness Other 06/13/2012 SHIN LIU APRN 780.09 Alteration Of Consciousness Other 06/13/2012 NALINI GOMEZ APRN 780.09 Alteration Of Consciousness Other 06/13/2012 SHAINA CAN APRN 780.09 Alteration Of Consciousness Other 06/13/2012 NALINI GOMEZ APRN 780.09 Alteration Of Consciousness Other 06/13/2012 SHAINA CAN APRN 780.09 Alteration Of Consciousness Other 06/14/2012 244.9 HYPOTHYROIDISM 06/14/2012 250.00 DIABETES MELLITUS TYPE 2 06/14/2012 414.00 CORONARY ARTERY DISEASE 06/14/2012 458.0 ORTHOSTATIC HYPOTENSION IDIOPATHIC 06/14/2012 780.99 loss of pleasure from usual activities (anhedonia) 06/14/2012 NALINI GOMEZ APRN 244.9 HYPOTHYROIDISM 06/14/2012 NALINI GOMEZ APRN 250.00 DIABETES MELLITUS TYPE 2 06/14/2012 NALINI GOMEZ APRN 414.00 CORONARY ARTERY DISEASE 06/14/2012 NALINI GOMEZ APRN 458.0 ORTHOSTATIC HYPOTENSION IDIOPATHIC 06/14/2012 NALINI GOMEZ APRN 780.99 loss of pleasure from usual activities (anhedonia) 06/14/2012 NALINI GOMEZ APRN 244.9 HYPOTHYROIDISM 06/14/2012 NALINI GOMEZ APRN 250.00 DIABETES MELLITUS TYPE 2 06/14/2012 NALINI GOMEZ APRN 414.00 CORONARY ARTERY DISEASE 06/14/2012 NALINI GOMEZ APRN 458.0 ORTHOSTATIC HYPOTENSION IDIOPATHIC 06/14/2012 NALINI GOMEZ APRN 780.99 loss of pleasure from usual activities (anhedonia) 06/14/2012 244.9 HYPOTHYROIDISM 06/14/2012 250.00 DIABETES MELLITUS TYPE 2 06/14/2012 414.00 CORONARY ARTERY DISEASE 06/14/2012 458.0 ORTHOSTATIC HYPOTENSION IDIOPATHIC 06/14/2012 780.99 Loss Of Pleasure From Usual Activities (anhedonia) 06/14/2012 244.9 HYPOTHYROIDISM 06/14/2012 250.00 DIABETES MELLITUS TYPE 2 06/14/2012 414.00 CORONARY ARTERY DISEASE 06/14/2012 458.0 ORTHOSTATIC HYPOTENSION IDIOPATHIC 06/14/2012 780.99 Loss Of Pleasure From Usual Activities (anhedonia) 06/14/2012 244.9 HYPOTHYROIDISM 06/14/2012 250.00 DIABETES MELLITUS TYPE 2 06/14/2012 414.00 CORONARY ARTERY DISEASE 06/14/2012 458.0 ORTHOSTATIC HYPOTENSION IDIOPATHIC 06/14/2012 780.99 Loss Of Pleasure From Usual Activities (anhedonia) 06/14/2012 244.9 HYPOTHYROIDISM 06/14/2012 250.00 DIABETES MELLITUS TYPE 2 06/14/2012 414.00 CORONARY ARTERY DISEASE 06/14/2012 458.0 ORTHOSTATIC HYPOTENSION IDIOPATHIC 06/14/2012 780.99 Loss Of Pleasure From Usual Activities (anhedonia) 06/14/2012 244.9 HYPOTHYROIDISM 06/14/2012 250.00 DIABETES MELLITUS TYPE 2 06/14/2012 414.00 CORONARY ARTERY DISEASE 06/14/2012 458.0 ORTHOSTATIC HYPOTENSION IDIOPATHIC 06/14/2012 780.99 Loss Of Pleasure From Usual Activities (anhedonia) 06/14/2012 244.9 HYPOTHYROIDISM 06/14/2012 250.00 DIABETES MELLITUS TYPE 2 06/14/2012 414.00 CORONARY ARTERY DISEASE 06/14/2012 458.0 ORTHOSTATIC HYPOTENSION IDIOPATHIC 06/14/2012 780.99 Loss Of Pleasure From Usual Activities (anhedonia) 06/14/2012 244.9 HYPOTHYROIDISM 06/14/2012 250.00 DIABETES MELLITUS TYPE 2 06/14/2012 414.00 CORONARY ARTERY DISEASE 06/14/2012 458.0 ORTHOSTATIC HYPOTENSION IDIOPATHIC 06/14/2012 780.99 Loss Of Pleasure From Usual Activities (anhedonia) 06/14/2012 244.9 HYPOTHYROIDISM 06/14/2012 250.00 DIABETES MELLITUS TYPE 2 06/14/2012 414.00 CORONARY ARTERY DISEASE 06/14/2012 458.0 ORTHOSTATIC HYPOTENSION IDIOPATHIC 06/14/2012 780.99 Loss Of Pleasure From Usual Activities (anhedonia) 06/14/2012 244.9 HYPOTHYROIDISM 06/14/2012 250.00 DIABETES MELLITUS TYPE 2 06/14/2012 414.00 CORONARY ARTERY DISEASE 06/14/2012 458.0 ORTHOSTATIC HYPOTENSION IDIOPATHIC 06/14/2012 780.99 Loss Of Pleasure From Usual Activities (anhedonia) 06/14/2012 BUFFY PALOMINO MD 244.9 HYPOTHYROIDISM 06/14/2012 BUFFY PALOMINO MD 250.00 DIABETES MELLITUS TYPE 2 06/14/2012 BUFFY PALOMINO MD 414.00 CORONARY ARTERY DISEASE 06/14/2012 BUFFY PALOMINO MD 458.0 ORTHOSTATIC HYPOTENSION IDIOPATHIC 06/14/2012 BUFFY PALOMINO MD 780.99 Loss Of Pleasure From Usual Activities (anhedonia) 06/14/2012 NALINI GOMEZ APRN 244.9 HYPOTHYROIDISM 06/14/2012 NALINI GOMEZ APRN 250.00 DIABETES MELLITUS TYPE 2 06/14/2012 NALINI GOMEZ APRN 414.00 CORONARY ARTERY DISEASE 06/14/2012 NALINI GOMEZ APRN 458.0 ORTHOSTATIC HYPOTENSION IDIOPATHIC 06/14/2012 NALINI GOMEZ APRN 780.99 Loss Of Pleasure From Usual Activities (anhedonia) 06/14/2012 NALINI GOMEZ APRN 244.9 HYPOTHYROIDISM 06/14/2012 NALINI GOMEZ APRN 250.00 DIABETES MELLITUS TYPE 2 06/14/2012 NALINI GOMEZ APRN 414.00 CORONARY ARTERY DISEASE 06/14/2012 NALINI GOMEZ APRN 458.0 ORTHOSTATIC HYPOTENSION IDIOPATHIC 06/14/2012 NALINI GOMEZ APRN 780.99 Loss Of Pleasure From Usual Activities (anhedonia) 06/14/2012 NALINI GOMEZ APRN 244.9 HYPOTHYROIDISM 06/14/2012 NALINI GOMEZ APRN T 250.00 DIABETES MELLITUS TYPE 2 06/14/2012 NALINI GOMEZ APRN T 414.00 CORONARY ARTERY DISEASE 06/14/2012 NALINI GOMEZ APRN T 458.0 ORTHOSTATIC HYPOTENSION IDIOPATHIC 06/14/2012 NALINI GOMEZ APRN 780.99 Loss Of Pleasure From Usual Activities (anhedonia) 06/14/2012 NALINI GOMEZ APRN 244.9 HYPOTHYROIDISM 06/14/2012 NALINI GOMEZ APRN T 250.00 DIABETES MELLITUS TYPE 2 06/14/2012 NALINI GOMEZ APRN 414.00 CORONARY ARTERY DISEASE 06/14/2012 NALINI GOMEZ APRN 458.0 ORTHOSTATIC HYPOTENSION IDIOPATHIC 06/14/2012 NALINI GOMEZ APRN 780.99 Loss Of Pleasure From Usual Activities (anhedonia) 06/14/2012 BUFFY PALOMINO MD 244.9 HYPOTHYROIDISM 06/14/2012 BUFFY PALOMINO MD 250.00 DIABETES MELLITUS TYPE 2 06/14/2012 BUFFY PALOMINO MD 414.00 CORONARY ARTERY DISEASE 06/14/2012 BUFFY PALOMINO MD 458.0 ORTHOSTATIC HYPOTENSION IDIOPATHIC 06/14/2012 BUFFY PALOMINO MD 780.99 Loss Of Pleasure From Usual Activities (anhedonia) 06/14/2012 DUPREE DO, KUSHAL K 244.9 HYPOTHYROIDISM 06/14/2012 DUPREE DO, KUSHAL K 250.00 DIABETES MELLITUS TYPE 2 06/14/2012 DUPREE DO, KUSHAL K 414.00 CORONARY ARTERY DISEASE 06/14/2012 DUPREE DO, KUSHAL K 458.0 ORTHOSTATIC HYPOTENSION IDIOPATHIC 06/14/2012 DUPREE DO, KUSHAL K 780.99 loss of pleasure from usual activities (anhedonia) 06/14/2012 NALINI GOMEZ APRN 244.9 HYPOTHYROIDISM 06/14/2012 NALINI GOMEZ APRN 250.00 DIABETES MELLITUS TYPE 2 06/14/2012 NALINI GOMEZ APRN 414.00 CORONARY ARTERY DISEASE 06/14/2012 NALINI GOMEZ APRN 458.0 ORTHOSTATIC HYPOTENSION IDIOPATHIC 06/14/2012 NALINI GOMEZ APRN 780.99 Loss Of Pleasure From Usual Activities (anhedonia) 06/14/2012 BUFFY PALOMINO MD 244.9 HYPOTHYROIDISM 06/14/2012 BUFFY PALOMINO MD 250.00 DIABETES MELLITUS TYPE 2 06/14/2012 BUFFY PALOMINO MD 414.00 CORONARY ARTERY DISEASE 06/14/2012 BUFFY PALOMINO MD 458.0 ORTHOSTATIC HYPOTENSION IDIOPATHIC 06/14/2012 BUFFY PALOMINO MD 780.99 Loss Of Pleasure From Usual Activities (anhedonia) 06/14/2012 NALINI GOMEZ APRN 244.9 HYPOTHYROIDISM 06/14/2012 NALINI GOMEZ APRN 250.00 DIABETES MELLITUS TYPE 2 06/14/2012 NALINI GOMEZ APRN 414.00 CORONARY ARTERY DISEASE 06/14/2012 NALINI GOMEZ APRN 458.0 ORTHOSTATIC HYPOTENSION IDIOPATHIC 06/14/2012 NALINI GOMEZ APRN 780.99 Loss Of Pleasure From Usual Activities (anhedonia) 06/14/2012 NALINI GOMEZ APRN T 244.9 HYPOTHYROIDISM 06/14/2012 NALINI GOMEZ APRN T 250.00 DIABETES MELLITUS TYPE 2 06/14/2012 NALINI GOMEZ APRN 414.00 CORONARY ARTERY DISEASE 06/14/2012 NALINI GOMEZ APRN 458.0 ORTHOSTATIC HYPOTENSION IDIOPATHIC 06/14/2012 NALINI GOMEZ APRN 780.99 Loss Of Pleasure From Usual Activities (anhedonia) 06/14/2012 ALEXA REDMOND SHIN R 244.9 HYPOTHYROIDISM 06/14/2012 ALEXA REDMOND SHIN R 250.00 DIABETES MELLITUS TYPE 2 06/14/2012 ALEXA REDMOND SHIN R 414.00 CORONARY ARTERY DISEASE 06/14/2012 ALEXA REDMOND SHIN R 458.0 ORTHOSTATIC HYPOTENSION IDIOPATHIC 06/14/2012 ALEXA REDMOND SHIN R 780.99 Loss Of Pleasure From Usual Activities (anhedonia) 06/14/2012 ALEXA REDMOND SHIN R 244.9 HYPOTHYROIDISM 06/14/2012 ALEXA REDMOND SHIN R 250.00 DIABETES MELLITUS TYPE 2 06/14/2012 ALEXA REDMOND SHIN R 414.00 CORONARY ARTERY DISEASE 06/14/2012 ALEXA REDMOND SHIN R 458.0 ORTHOSTATIC HYPOTENSION IDIOPATHIC 06/14/2012 ALEXA REDMOND SHIN R 780.99 Loss Of Pleasure From Usual Activities (anhedonia) 06/14/2012 NALINI GOMEZ APRN 244.9 HYPOTHYROIDISM 06/14/2012 NALINI GOMEZ APRN 250.00 DIABETES MELLITUS TYPE 2 06/14/2012 NALINI GOMEZ APRN 414.00 CORONARY ARTERY DISEASE 06/14/2012 NALINI GOMEZ APRN 458.0 ORTHOSTATIC HYPOTENSION IDIOPATHIC 06/14/2012 NALINI GOMEZ APRN 780.99 Loss Of Pleasure From Usual Activities (anhedonia) 06/14/2012 PAMELLA REDMOND SHAINA S 244.9 HYPOTHYROIDISM 06/14/2012 PAMELLA REDMOND SHAINA S 250.00 DIABETES MELLITUS TYPE 2 06/14/2012 PAMELLA REDMOND SHAINA S 414.00 CORONARY ARTERY DISEASE 06/14/2012 PAMELLA REDMOND SHAINA S 458.0 ORTHOSTATIC HYPOTENSION IDIOPATHIC 06/14/2012 PAMELLA DIRECTOR OF ENTERTAINMENT, SHAINA S 780.99 Loss Of Pleasure From Usual Activities (anhedonia) 06/14/2012 NALINI GOMEZ APRN 244.9 HYPOTHYROIDISM 06/14/2012 NALINI GOMEZ APRN 250.00 DIABETES MELLITUS TYPE 2 06/14/2012 NALINI GOMEZ APRN 414.00 CORONARY ARTERY DISEASE 06/14/2012 NALINI GOMEZ APRN 458.0 ORTHOSTATIC HYPOTENSION IDIOPATHIC 06/14/2012 NALINI GOMEZ APRN 780.99 Loss Of Pleasure From Usual Activities (anhedonia) 06/14/2012 PAMELLA REDMOND, SHAINA S 244.9 HYPOTHYROIDISM 06/14/2012 PAMELLA CONTIN, SHAINA S 250.00 DIABETES MELLITUS TYPE 2 06/14/2012 PAMELLA REDMOND, SHAINA S 414.00 CORONARY ARTERY DISEASE 06/14/2012 PAMELLA REDMOND, SHAINA S 458.0 ORTHOSTATIC HYPOTENSION IDIOPATHIC 06/14/2012 PAMELLA REDMOND, SHAINA S 780.99 Loss Of Pleasure From Usual Activities (anhedonia) 07/11/2012 Ot 250.00 DIAB ALLY WO COMPL, TYPE II OR UNSPEC TY 07/11/2012 Ot 726.73 CALCANEAL SPUR 07/11/2012 Ot V57.1 PHYSICAL THERAPY NEC 09/01/2012 Ot 466.0 ACUTE BRONCHITIS 09/01/2012 Ot 786.05 SHORTNESS OF BREATH 09/01/2012 Ot 786.59 CHEST PAIN NEC 09/09/2012 465.9 UPPER RESPIRATORY INFECTION 09/09/2012 786.2 COUGH 09/09/2012 NALINI GOMEZ APRN 465.9 UPPER RESPIRATORY INFECTION 09/09/2012 NALINI GOMEZ APRN 786.2 COUGH 09/09/2012 NALINI GOMEZ APRN 465.9 UPPER RESPIRATORY INFECTION 09/09/2012 NALINI GOMEZ APRN 786.2 COUGH 09/09/2012 465.9 Upper Respiratory Infection 09/09/2012 786.2 Cough 09/09/2012 465.9 Upper Respiratory Infection 09/09/2012 786.2 Cough 09/09/2012 465.9 Upper Respiratory Infection 09/09/2012 786.2 Cough 09/09/2012 465.9 Upper Respiratory Infection 09/09/2012 786.2 Cough 09/09/2012 465.9 Upper Respiratory Infection 09/09/2012 786.2 Cough 09/09/2012 465.9 Upper Respiratory Infection 09/09/2012 786.2 Cough 09/09/2012 465.9 Upper Respiratory Infection 09/09/2012 786.2 Cough 09/09/2012 465.9 Upper Respiratory Infection 09/09/2012 786.2 Cough 09/09/2012 465.9 Upper Respiratory Infection 09/09/2012 786.2 Cough 09/09/2012 BUFFY PALOMINO MD 465.9 Upper Respiratory Infection 09/09/2012 BUFFY PALOMINO MD 786.2 Cough 09/09/2012 NALINI GOMEZ APRN T 465.9 Upper Respiratory Infection 09/09/2012 NALINI GOMEZ APRN T 786.2 Cough 09/09/2012 NALINI GOMEZ APRN T 465.9 Upper Respiratory Infection 09/09/2012 NALINI GOMEZ APRN T 786.2 Cough 09/09/2012 NALINI GOMEZ APRN T 465.9 Upper Respiratory Infection 09/09/2012 NALINI GOMEZ APRN T 786.2 Cough 09/09/2012 NALINI GOMEZ APRN T 465.9 Upper Respiratory Infection 09/09/2012 NALINI GOMEZ APRN T 786.2 Cough 09/09/2012 BUFFY PALOMINO MD 465.9 Upper Respiratory Infection 09/09/2012 BUFFY PALOMINO MD 786.2 Cough 09/09/2012 DUPREE DO, KUSHAL K 465.9 UPPER RESPIRATORY INFECTION 09/09/2012 DUPREE DO, KUSHAL K 786.2 COUGH 09/09/2012 NALINI GOMEZ APRN T 465.9 Upper Respiratory Infection 09/09/2012 NALINI GOMEZ APRN T 786.2 Cough 09/09/2012 BUFFY PALOMINO MD 465.9 Upper Respiratory Infection 09/09/2012 BUFFY PALOMINO MD 786.2 Cough 09/09/2012 NALINI GOMEZ APRN T 465.9 Upper Respiratory Infection 09/09/2012 NALINI GOMEZ APRN T 786.2 Cough 09/09/2012 NALINI GOMEZ APRN T 465.9 Upper Respiratory Infection 09/09/2012 NALINI GOMEZ APRN T 786.2 Cough 09/09/2012 ALEXA REDMOND SHIN R 465.9 Upper Respiratory Infection 09/09/2012 ALEXA REDMOND SHIN R 786.2 Cough 09/09/2012 ALEXA REDMOND SHIN R 465.9 Upper Respiratory Infection 09/09/2012 ALEXA REDMOND SHIN R 786.2 Cough 09/09/2012 NALINI GOMEZ APRN T 465.9 Upper Respiratory Infection 09/09/2012 NALINI GOMEZ APRN T 786.2 Cough 09/09/2012 SHAINA CAN APRN S 465.9 Upper Respiratory Infection 09/09/2012 SHAINA CAN APRN S 786.2 Cough 09/09/2012 NALINI GOMEZ APRN T 465.9 Upper Respiratory Infection 09/09/2012 NALINI GOMEZ APRN T 786.2 Cough 09/09/2012 SHAINA CAN APRN S 465.9 Upper Respiratory Infection 09/09/2012 PAMELLA REDMOND, SHAINA S 786.2 Cough 02/07/2013 Ot 244.9 HYPOTHYROIDISM NOS 02/07/2013 Ot 250.00 DIAB ALLY WO COMPL, TYPE II OR UNSPEC TY 02/07/2013 Ot 272.4 HYPERLIPIDEMIA NEC/NOS 02/07/2013 Ot 311 DEPRESSIVE DISORDER NEC 02/07/2013 Ot 338.29 OTHER CHRONIC PAIN 02/07/2013 Ot 348.1 ANOXIC BRAIN DAMAGE 02/07/2013 Ot 401.9 HYPERTENSION NOS 02/07/2013 Ot 414.00 CORON ATHEROSCLER NOS TYPE VESSEL, NATIV 02/07/2013 Ot 427.5 CARDIAC ARREST 02/07/2013 Ot 491.21 OBSTR CHRONIC BRONCHITIS, W (ACUTE) EXAC 02/07/2013 Ot 518.81 ACUTE RESPIRATORY FAILURE 02/07/2013 Ot 570 ACUTE NECROSIS OF LIVER 02/07/2013 Ot 584.9 ACUTE RENAL FAILURE, UNSPECIFIED 02/07/2013 Ot 715.90 OSTEOARTHROS NOS-UNSPEC 02/07/2013 Ot 995.0 OTHER ANAPHYLACTIC REACTION 02/07/2013 Ot E849.7 ACCID IN RESIDENT INSTIT 02/07/2013 Ot E930.5 ADV EFF CEPHALOSPORIN 02/07/2013 Ot V45.81 AORTOCORONARY BYPASS 02/07/2013 Ot V45.82 PERCUTANEOUS TRANSLUM CORON ANGIOPLASTY 03/24/2013 DC CALHOUN MD Ot 596.51 HYPERTONICITY OF BLADDER 03/24/2013 DC CALHOUN MD Ot 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 03/24/2013 DC CALHONU MD Ot 788.30 UNSPECIFIED URINARY INCONTINENCE 05/23/2013 780.4 DIZZINESS AND VERTIGO 05/23/2013 780.4 DIZZINESS AND VERTIGO 05/23/2013 780.4 DIZZINESS AND VERTIGO 05/23/2013 BUFFY PALOMINO MD 780.4 DIZZINESS AND VERTIGO 05/23/2013 NALINI GOMEZ APRN 780.4 DIZZINESS AND VERTIGO 05/23/2013 NALINI GOMEZ APRN T 780.4 DIZZINESS AND VERTIGO 05/23/2013 NALINI GOMEZ APRN T 780.4 DIZZINESS AND VERTIGO 05/23/2013 NALINI GOMEZ APRN 780.4 DIZZINESS AND VERTIGO 05/23/2013 BUFFY PALOMINO MD 780.4 DIZZINESS AND VERTIGO 05/23/2013 NALINI GOMEZ APRN 780.4 DIZZINESS AND VERTIGO 05/23/2013 BUFFY PALOMINO MD 780.4 DIZZINESS AND VERTIGO 05/23/2013 NALINI GOMEZ APRN 780.4 DIZZINESS AND VERTIGO 05/23/2013 NALNII GOMEZ APRN 780.4 DIZZINESS AND VERTIGO 05/23/2013 ALEXA REDMOND SHIN R 780.4 DIZZINESS AND VERTIGO 05/23/2013 ALEXA REDMOND SHIN R 780.4 DIZZINESS AND VERTIGO 05/23/2013 NALINI GOMEZ APRN 780.4 DIZZINESS AND VERTIGO 05/23/2013 SHAINA CAN APRN S 780.4 DIZZINESS AND VERTIGO 05/23/2013 NALINI GOMEZ APRN T 780.4 DIZZINESS AND VERTIGO 05/23/2013 CAT CAN APRNA S 780.4 DIZZINESS AND VERTIGO 06/03/2013 787.01 NAUSEA WITH VOMITING 06/03/2013 787.01 NAUSEA WITH VOMITING 06/03/2013 BUFFY PALOMINO MD 787.01 NAUSEA WITH VOMITING 06/03/2013 NALINI GOMEZ APRN 787.01 NAUSEA WITH VOMITING 06/03/2013 NALINI GOMEZ APRN 787.01 NAUSEA WITH VOMITING 06/03/2013 NALINI GOMEZ APRN 787.01 NAUSEA WITH VOMITING 06/03/2013 NALINI GOMEZ APRN 787.01 NAUSEA WITH VOMITING 06/03/2013 BUFFY PALOMINO MD 787.01 NAUSEA WITH VOMITING 06/03/2013 NALINI GOMEZ APRN 787.01 NAUSEA WITH VOMITING 06/03/2013 BUFFY PALOMINO MD 787.01 NAUSEA WITH VOMITING 06/03/2013 NALINI GOMEZ APRN 787.01 NAUSEA WITH VOMITING 06/03/2013 PATRICIA DIRECTOR OF ENTERTAINMENT, NALINI T 787.01 NAUSEA WITH VOMITING 06/03/2013 SHIN LIU APRN R 787.01 NAUSEA WITH VOMITING 06/03/2013 SHIN LIU APRN R 787.01 NAUSEA WITH VOMITING 06/03/2013 NALINI GOMEZ APRN 787.01 NAUSEA WITH VOMITING 06/03/2013 SHAINA CAN APRN 787.01 NAUSEA WITH VOMITING 06/03/2013 NALINI GOMEZ APRN 787.01 NAUSEA WITH VOMITING 06/03/2013 SHAINA CAN APRN S 787.01 NAUSEA WITH VOMITING 06/05/2013 RAVINDER DO VU K Ot 244.9 HYPOTHYROIDISM NOS 06/05/2013 RAVINDER DO, VU K Ot 250.00 DIAB ALLY WO COMPL, TYPE II OR UNSPEC TY 06/05/2013 RAVINDER DO VU K Ot 272.0 PURE HYPERCHOLESTEROLEM 06/05/2013 RAVINDER DO VU K Ot 401.9 HYPERTENSION NOS 06/05/2013 RAVINDER DO VU K Ot 414.00 CORON ATHEROSCLER NOS TYPE VESSEL, NATIV 06/05/2013 RAVINDER URBANO VU K Ot 473.3 CHR SPHENOIDAL SINUSITIS 06/05/2013 RAVINDER DO VU K Ot 496 CHR AIRWAY OBSTRUCT NEC 06/05/2013 RAVINDER DO VU K Ot 780.4 DIZZINESS AND GIDDINESS 06/05/2013 RAVINDER URBANO VU K Ot V45.81 AORTOCORONARY BYPASS 06/05/2013 RAVINDER URBANO VU K Ot V58.67 LONG-TERM (CURRENT) USE OF INSULIN 08/23/2013 LELIA PINEDA MD Ot 250.00 DIAB ALLY WO COMPL, TYPE II OR UNSPEC TY 08/23/2013 LELIA PINEDA MD Ot 272.4 HYPERLIPIDEMIA NEC/NOS 08/23/2013 LELIA PINEDA MD Ot 278.00 OBESITY, NOS 08/23/2013 LELIA PINEDA MD Ot 401.9 HYPERTENSION NOS 08/23/2013 LELIA PINEDA MD Ot 414.01 CORONARY ATHEROSCLEROSIS OF [place] CORON 08/23/2013 LELIA PINEDA MD Ot 496 CHR AIRWAY OBSTRUCT NEC 08/23/2013 LELIA PINEDA MD Ot 533.90 PEPTIC ULCER NOS 08/23/2013 LELIA PINEDA MD Ot 715.90 OSTEOARTHROS NOS-UNSPEC 08/23/2013 LELIA PINEDA MD Ot 780.4 DIZZINESS AND GIDDINESS 08/23/2013 LELIA PINEDA MD Ot 786.05 SHORTNESS OF BREATH 08/23/2013 LELIA PINEDA MD Ot V45.81 AORTOCORONARY BYPASS 08/23/2013 LELIA PINEDA MD Ot V45.82 PERCUTANEOUS TRANSLUM CORON ANGIOPLASTY 08/23/2013 LELIA PINEDA MD Ot V58.69 OT MED,LT,CURRENT USE 08/23/2013 LELIA PINEDA MD Ot V85.35 BODY MASS INDEX 35.0-35.9, ADULT 08/29/2013 BUFFY PALOMINO MD 719.46 PAIN- KNEE 08/29/2013 NALINI GOMEZ APRN 719.46 PAIN- KNEE 08/29/2013 NALINI GOMEZ APRN 719.46 PAIN- KNEE 08/29/2013 NALINI GOMEZ APRN 719.46 PAIN- KNEE 08/29/2013 NALINI GOMEZ APRN 719.46 PAIN- KNEE 08/29/2013 BUFFY PALOMINO MD 719.46 PAIN- KNEE 08/29/2013 NALINI GOMEZ APRN 719.46 PAIN- KNEE 08/29/2013 BUFFY PALOMINO MD 719.46 PAIN- KNEE 08/29/2013 NALINI GOMEZ APRN 719.46 PAIN- KNEE 08/29/2013 NALINI GOMEZ APRN 719.46 PAIN- KNEE 08/29/2013 SHIN LIU APRN R 719.46 PAIN- KNEE 08/29/2013 SHIN LIU APRN R 719.46 PAIN- KNEE 08/29/2013 NALINI GOMEZ APRN 719.46 PAIN- KNEE 08/29/2013 SHAINA CAN APRN S 719.46 PAIN- KNEE 08/29/2013 NALINI GOMEZ APRN 719.46 PAIN- KNEE 08/29/2013 SHAINA CAN APRN S 719.46 PAIN- KNEE 09/04/2013 PANCHO MARQUIS Ot 386.30 LABYRINTHITIS NOS 09/04/2013 PANCHO MARQUIS Ot 599.0 URIN TRACT INFECTION NOS 09/04/2013 PANCHO MARQUIS Ot 780.2 SYNCOPE AND COLLAPSE 09/13/2013 NALINI GOMEZ Ot 386.30 LABYRINTHITIS NOS 09/13/2013 NALINI GOMEZ Ot V57.1 PHYSICAL THERAPY NEC 11/02/2013 PANCHO MARQUIS Ot 466.0 ACUTE BRONCHITIS 11/02/2013 PANCHO MARQUIS Ot 786.2 COUGH 01/20/2014 DEEJAY FELIPE DIRECTOR OF ENTERTAINMENT Ot 490 BRONCHITIS NOS 01/20/2014 DEEJAY FELIPE APRN Ot 786.2 COUGH 01/29/2014 NALINI GOMEZ APRN T 078.10 WARTS 01/29/2014 NALINI GOMEZ APRN T 250.00 DIABETES II CONTROLLED (UNCOMPLICATED) 01/29/2014 NALINI GOMEZ APRN 466.0 BRONCHITIS, ACUTE 01/29/2014 NALINI GOMEZ APRN T 782.1 RASH 01/29/2014 BUFFY PALOMINO MD 078.10 WARTS 01/29/2014 BUFFY PALOMINO MD 250.00 DIABETES II CONTROLLED (UNCOMPLICATED) 01/29/2014 BUFFY PALOMINO MD 466.0 BRONCHITIS, ACUTE 01/29/2014 BUFFY PALOMINO MD 782.1 RASH 01/29/2014 NALINI GOMEZ APRN T 078.10 WARTS 01/29/2014 NALINI GOMEZ APRN 250.00 DIABETES II CONTROLLED (UNCOMPLICATED) 01/29/2014 NALINI GOMEZ APRN 466.0 BRONCHITIS, ACUTE 01/29/2014 NALINI GOMEZ APRN 782.1 RASH 01/29/2014 BUFFY PALOMINO MD 078.10 WARTS 01/29/2014 BUFFY PALOMINO MD 250.00 DIABETES II CONTROLLED (UNCOMPLICATED) 01/29/2014 BUFFY PALOMINO MD 466.0 BRONCHITIS, ACUTE 01/29/2014 BUFFY PALOMINO MD 782.1 RASH 01/29/2014 NALINI GOMEZ APRN T 078.10 WARTS 01/29/2014 NALINI GOMEZ APRN T 250.00 DIABETES II CONTROLLED (UNCOMPLICATED) 01/29/2014 NALINI GOMEZ APRN 466.0 BRONCHITIS, ACUTE 01/29/2014 NALINI GOMEZ APRN T 782.1 RASH 01/29/2014 NALINI GOMEZ APRN T 078.10 WARTS 01/29/2014 NALINI GOMEZ APRN T 250.00 DIABETES II CONTROLLED (UNCOMPLICATED) 01/29/2014 NALINI GOMEZ APRN T 466.0 BRONCHITIS, ACUTE 01/29/2014 NALINI GOMEZ APRN T 782.1 RASH 01/29/2014 ALEXA DIRECTOR OF ENTERTAINMENT, SHIN R 078.10 WARTS 01/29/2014 ALEXA DIRECTOR OF ENTERTAINMENT, SHIN R 250.00 DIABETES II CONTROLLED (UNCOMPLICATED) 01/29/2014 ALEXA DIRECTOR OF ENTERTAINMENT, SHIN R 466.0 BRONCHITIS, ACUTE 01/29/2014 ALEXA DIRECTOR OF ENTERTAINMENT, SHIN R 782.1 RASH 01/29/2014 ALEXA DIRECTOR OF ENTERTAINMENT, SHIN R 078.10 WARTS 01/29/2014 ALEXA DIRECTOR OF ENTERTAINMENT, SHIN R 250.00 DIABETES II CONTROLLED (UNCOMPLICATED) 01/29/2014 JUSTIN LIU APRNIA R 466.0 BRONCHITIS, ACUTE 01/29/2014 ALEXA CONTINJACQUELYNSHIN R 782.1 RASH 01/29/2014 NALINI GOMEZ APRN T 078.10 WARTS 01/29/2014 NALINI GOMEZ APRN T 250.00 DIABETES II CONTROLLED (UNCOMPLICATED) 01/29/2014 NALINI GOMEZ APRN 466.0 BRONCHITIS, ACUTE 01/29/2014 NALINI GOMEZ APRN T 782.1 RASH 01/29/2014 PAMELLA REDMOND, SHAINA S 078.10 WARTS 01/29/2014 PAMELLA REDMOND, SHAINA S 250.00 DIABETES II CONTROLLED (UNCOMPLICATED) 01/29/2014 PAMELLA REDMOND SHAINA S 466.0 BRONCHITIS, ACUTE 01/29/2014 PAMELLA REDMOND, SHAINA S 782.1 RASH 01/29/2014 NALINI GOMEZ APRN T 078.10 WARTS 01/29/2014 NALINI GOMEZ APRN T 250.00 DIABETES II CONTROLLED (UNCOMPLICATED) 01/29/2014 NALINI GOMEZ APRN T 466.0 BRONCHITIS, ACUTE 01/29/2014 NALINI GOMEZ APRN T 782.1 RASH 01/29/2014 PAMELLA REDMOND, SHAINA S 078.10 WARTS 01/29/2014 PAMELLA CONTIN, SHAINA S 250.00 DIABETES II CONTROLLED (UNCOMPLICATED) 01/29/2014 PAMELLA CONTIN, SHAINA S 466.0 BRONCHITIS, ACUTE 01/29/2014 PAMELLASARMAD CONTIN, SHAINA S 782.1 RASH 02/13/2014 CANDELARIO DANIEL, BUFFY 078.19 WARTS, COMMON 02/13/2014 NALINI GOMEZ APRN T 078.19 WARTS, COMMON 02/13/2014 CANDELARIO DANIEL, BUFFY 078.19 WARTS, COMMON 02/13/2014 NALINI GOMEZ APRN T 078.19 WARTS, COMMON 02/13/2014 NALINI GOMEZ APRN T 078.19 WARTS, COMMON 02/13/2014 ALEXA DIRECTOR OF ENTERTAINMENT, SHIN R 078.19 WARTS, COMMON 02/13/2014 ALEXA DIRECTOR OF ENTERTAINMENT, SHIN R 078.19 WARTS, COMMON 02/13/2014 NALINI GOMEZ APRN T 078.19 WARTS, COMMON 02/13/2014 PAMELLA REDMOND SHAINA S 078.19 WARTS, COMMON 02/13/2014 NALINI GOMEZ APRN T 078.19 WARTS, COMMON 02/13/2014 PAMELLA REDMOND SHAINA S 078.19 WARTS, COMMON 03/21/2014 DC CALHOUN MD Ot 596.51 HYPERTONICITY OF BLADDER 03/21/2014 DC CALHOUN MD Ot 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 03/21/2014 DC CALHOUN MD Ot 788.30 UNSPECIFIED URINARY INCONTINENCE 03/21/2014 DC CALHOUN MD Ot V58.69 OT MED,LT,CURRENT USE 03/31/2014 FLOR ARIZMENDI DO Ot 244.9 HYPOTHYROIDISM NOS 03/31/2014 FLOR ARIZMENDI DO Ot 250.00 DIAB ALLY WO COMPL, TYPE II OR UNSPEC TY 03/31/2014 FLOR ARIZMENDI DO Ot 272.4 HYPERLIPIDEMIA NEC/NOS 03/31/2014 FLOR ARIZMENDI DO Ot 401.9 HYPERTENSION NOS 03/31/2014 FLOR ARIZMENDI DO Ot 414.01 CORONARY ATHEROSCLEROSIS OF [place]AMPART CORON 03/31/2014 FLOR ARIZMENDI DO Ot 493.90 ASTHMA, UNSPECIFIED 03/31/2014 FLOR ARIZMENDI DO Ot 996.42 DISLOCATION OF PROSTHETIC JOINT 03/31/2014 FLOR ARIZMENDI DO, Ot V15.82 HISTORY OF TOBACCO USE 03/31/2014 FLOR ARIZMENDI DO, Ot V43.65 KNEE JOINT REPLACEMENT STATUS 03/31/2014 FLOR ARIZMENDI DO Ot V45.81 AORTOCORONARY BYPASS 05/27/2014 CANDELARIO DANIEL, BUFFY [place] Ot 038.42 E COLI SEPTICEMIA 05/27/2014 CANDELARIO DANIEL, BUFFY [place] Ot 250.00 DIAB ALLY WO COMPL, TYPE II OR UNSPEC TY 05/27/2014 CANDELARIO DANIEL, BUFFY [place] Ot 560.1 PARALYTIC ILEUS 05/27/2014 CANDELARIO DANIEL, BUFFY [place] Ot 590.80 PYELONEPHRITIS NOS 05/27/2014 CANDELARIO DANIEL, BUFFY [place] Ot 593.9 RENAL URETERAL DIS NOS 05/27/2014 CANDELARIO DANIEL, BUFFY [place] Ot 995.91 SEPSIS 12/12/2014 SHIN LIU APRN R 558.9 GASTROENTERITIS NONINFECTIOUS 12/12/2014 SHIN LIU APRN R 558.9 GASTROENTERITIS NONINFECTIOUS 12/12/2014 NALINI GOMEZ APRN 558.9 GASTROENTERITIS NONINFECTIOUS 12/12/2014 SHAINA CAN APRN S 558.9 GASTROENTERITIS NONINFECTIOUS 12/12/2014 NALINI GOMEZ APRN 558.9 GASTROENTERITIS NONINFECTIOUS 12/12/2014 SHAINA CAN APRN S 558.9 GASTROENTERITIS NONINFECTIOUS 01/15/2015 ELIZABETH DANIEL, LISSA Tomlinson Ot 250.00 02/01/2015 NALINI GOMEZ APRN 338.29 CHRONIC PAIN 02/01/2015 NALINI GOMEZ APRN 786.2 COUGH 02/01/2015 SHAINA CAN APRN S 338.29 CHRONIC PAIN 02/01/2015 SHAINA CAN APRN S 786.2 COUGH 02/01/2015 NALINI GOMEZ APRN 338.29 CHRONIC PAIN 02/01/2015 NALINI GOMEZ APRN 786.2 COUGH 02/01/2015 SHAINA CAN APRN S 338.29 CHRONIC PAIN 02/01/2015 SHAINA CAN APRN S 786.2 COUGH 02/19/2015 Ot 250.00 04/05/2015 Ot 996.41 04/05/2015 Ot V43.65 04/05/2015 Ot 414.00 04/05/2015 Ot 786.50 04/05/2015 Ot V72.81 04/05/2015 Ot 396.3 04/05/2015 Ot 397.0 04/05/2015 Ot 414.00 04/05/2015 Ot 416.8 04/05/2015 Ot 786.50 04/05/2015 Ot V72.81 04/05/2015 Ot 272.4 04/05/2015 Ot 401.9 04/05/2015 Ot 414.00 04/05/2015 Ot 401.9 04/05/2015 Ot 414.00 04/05/2015 Ot 440.21 04/05/2015 Ot V64.3 04/05/2015 Ot 401.9 04/05/2015 Ot 414.01 04/05/2015 Ot 440.20 04/05/2015 Ot V72.63 04/05/2015 Ot V72.81 04/05/2015 Ot 726.73 04/05/2015 Ot V72.83 04/05/2015 Ot V74.8 04/05/2015 ELIZABETH DANIEL, LISSA Tomlinson Ot 250.00 04/05/2015 MIRIAM DANIEL, LELIA Brewer Ot 414.01 04/05/2015 MIRIAM DANIEL, LELIA Brewer Ot 786.09 04/05/2015 MIRIAM DANIEL, LELIA Brewer Ot 786.50 04/05/2015 Ot 599.82 04/05/2015 Ot 788.30 04/05/2015 Ot V72.83 04/05/2015 Ot V74.8 04/05/2015 Ot 272.4 04/05/2015 Ot 401.9 04/05/2015 Ot 414.01 04/05/2015 FLOR ARIZMENDI DO Ot 719.46 04/05/2015 LJ DANIEL, DC Vick Ot 596.51 04/05/2015 LJ DANIEL, DC Vick Ot V72.63 04/05/2015 LJ DANIEL, DC Vick Ot V72.84 04/05/2015 LJ DANIEL, DC Vick Ot V74.8 04/05/2015 FLOR ARIZMENDI DO Ot 719.46 04/05/2015 FLOR ARIZMENDI DO Ot V72.84 04/05/2015 LJ DANIEL, DC Vick Ot 593.9 04/05/2015 LJ DANIEL, DC Vick Ot 593.9 04/05/2015 LJ DANIEL, DC Vick Ot V81.5 04/05/2015 Ot 250.00 05/02/2015 LELIA PINEDA MD Ot 272.4 05/02/2015 LELIA PINEDA MD Ot 401.9 05/02/2015 LELIA PINEDA MD Ot 414.9 05/02/2015 LELIA PINEDA MD Ot 786.50 05/16/2015 LELIA PINEDA MD Ot 250.00 DIAB ALLY WO COMPL, TYPE II OR UNSPEC TY 05/16/2015 LELIA PINDEA MD Ot 272.4 HYPERLIPIDEMIA NEC/NOS 05/16/2015 LELIA PINEDA MD Ot 278.00 OBESITY, NOS 05/16/2015 LELIA PINEDA MD Ot 401.9 HYPERTENSION NOS 05/16/2015 LELIA PINEDA MD Ot 414.01 CORONARY ATHEROSCLEROSIS OF [place] CORON 05/16/2015 LELIA PINEDA MD Ot 496 CHR AIRWAY OBSTRUCT NEC 05/16/2015 LELIA PINEDA MD Ot 786.50 CHEST PAIN NOS 05/16/2015 LELIA PINEDA MD Ot V45.81 AORTOCORONARY BYPASS 05/16/2015 LELIA PINEDA MD Ot V45.82 PERCUTANEOUS TRANSLUM CORON ANGIOPLASTY 05/16/2015 LELIA PINEDA MD Ot V58.69 OT MED,LT,CURRENT USE 05/16/2015 LELIA PINEDA MD Ot V85.36 BODY MASS INDEX 36.0-36.9, ADULT 05/28/2015 LELIA PINEDA MD Ot 272.4 05/28/2015 LELIA PINEDA MD Ot 401.9 05/28/2015 LELIA PINEDA MD Ot 414.00 05/28/2015 LELIA PINEDA MD Ot 786.50 08/06/2015 CARRIE FORTUNE Ot 272.4 12/10/2015 Ot 996.41 12/10/2015 Ot V43.65 12/10/2015 Ot 414.00 12/10/2015 Ot 786.50 12/10/2015 Ot V72.81 12/10/2015 Ot 396.3 12/10/2015 Ot 397.0 12/10/2015 Ot 414.00 12/10/2015 Ot 416.8 12/10/2015 Ot 786.50 12/10/2015 Ot V72.81 12/10/2015 Ot 272.4 12/10/2015 Ot 401.9 12/10/2015 Ot 414.00 12/10/2015 Ot 401.9 12/10/2015 Ot 414.00 12/10/2015 Ot 440.21 12/10/2015 Ot V64.3 12/10/2015 Ot 401.9 12/10/2015 Ot 414.01 12/10/2015 Ot 440.20 12/10/2015 Ot V72.63 12/10/2015 Ot V72.81 12/10/2015 Ot 726.73 12/10/2015 Ot V72.83 12/10/2015 Ot V74.8 12/10/2015 ELIZABETH DANIEL, LISSA Tomlinson Ot 250.00 12/10/2015 MIRIAM DANIEL, LELIA Brewer Ot 414.01 12/10/2015 MIRIAM DANIEL, LELIA Brewer Ot 786.09 12/10/2015 MIRIAM DANIEL, LELIA Brewer Ot 786.50 12/10/2015 Ot 599.82 12/10/2015 Ot 788.30 12/10/2015 Ot V72.83 12/10/2015 Ot V74.8 12/10/2015 Ot 272.4 12/10/2015 Ot 401.9 12/10/2015 Ot 414.01 12/10/2015 FLOR ARIZMENDI DO Ot 719.46 12/10/2015 LJ DANIEL, DC Vick Ot 596.51 12/10/2015 LJ DANIEL, CD Vick Ot V72.63 12/10/2015 LJ DANIEL, DC Vick Ot V72.84 12/10/2015 LJ DANIEL, DC A Ot V74.8 12/10/2015 FLOR ARIZMENDI DO Ot 719.46 12/10/2015 FLOR ARIZMENDI DO Ot V72.84 12/10/2015 LJ DANIEL, DC Vick Ot 593.9 12/10/2015 LJ DANIEL, DC Vick Ot 593.9 12/10/2015 LJ DANIEL, DC Vick Ot V81.5 12/10/2015 Ot 250.00 12/10/2015 MIRIAM DANIEL, LELIA J Ot 272.4 12/10/2015 MIRIAM DANIEL, LELIA Brewer Ot 401.9 12/10/2015 MIRIAM DANIEL, BASHAR J Ot 414.9 12/10/2015 MIRIAM DANIEL, LELIA J Ot 786.50 12/10/2015 MIRIAM DANIEL, LELIA Brweer Ot 272.4 12/10/2015 MIRIAM DANIEL, LELIA J Ot 401.9 12/10/2015 MIRIAM DANIEL, LELIA J Ot 414.00 12/10/2015 MIRIAM DANIEL, LELIA Brewer Ot 786.50 12/10/2015 CADEN ERNST, CARRIE Gonzalez Ot 272.4 12/17/2015 Ot 996.41 12/17/2015 Ot V43.65 12/17/2015 Ot 414.00 12/17/2015 Ot 786.50 12/17/2015 Ot V72.81 12/17/2015 Ot 396.3 12/17/2015 Ot 397.0 12/17/2015 Ot 414.00 12/17/2015 Ot 416.8 12/17/2015 Ot 786.50 12/17/2015 Ot V72.81 12/17/2015 Ot 272.4 12/17/2015 Ot 401.9 12/17/2015 Ot 414.00 12/17/2015 Ot 401.9 12/17/2015 Ot 414.00 12/17/2015 Ot 440.21 12/17/2015 Ot V64.3 12/17/2015 Ot 401.9 12/17/2015 Ot 414.01 12/17/2015 Ot 440.20 12/17/2015 Ot V72.63 12/17/2015 Ot V72.81 12/17/2015 Ot 726.73 12/17/2015 Ot V72.83 12/17/2015 Ot V74.8 12/17/2015 ELIZABETH DANIEL, LISSA Tomlinson Ot 250.00 12/17/2015 MIRIAM DANIEL, LELIA J Ot 414.01 12/17/2015 MIRIAM DANIEL, LELIA Brewer Ot 786.09 12/17/2015 MIRIAM DANIEL, LELIA Brewer Ot 786.50 12/17/2015 Ot 599.82 12/17/2015 Ot 788.30 12/17/2015 Ot V72.83 12/17/2015 Ot V74.8 12/17/2015 Ot 272.4 12/17/2015 Ot 401.9 12/17/2015 Ot 414.01 12/17/2015 FLOR ARIZMENDI DO Ot 719.46 12/17/2015 LJ DANIEL, DC Vick Ot 596.51 12/17/2015 LJ DANIEL, DC Vick Ot V72.63 12/17/2015 LJ DANIEL, DC Vick Ot V72.84 12/17/2015 LJ DANIEL, DC Vick Ot V74.8 12/17/2015 KYLEIGH URBANO FLOR Hayward Ot 719.46 12/17/2015 FLOR ARIZMENDI DO Mainor Ot V72.84 12/17/2015 LJ DANIEL, DC A Ot 593.9 12/17/2015 LJ DANIEL, DC A Ot 593.9 12/17/2015 LJ DANIEL, DC Vick Ot V81.5 12/17/2015 Ot 250.00 12/17/2015 MIRIAM DANIEL, LELIA Brewer Ot 272.4 12/17/2015 MIRIAM DANIEL, LELIA J Ot 401.9 12/17/2015 MIRIAM DANIEL, LELIA Brewer Ot 414.9 12/17/2015 MIRIAM DANIEL, LELIA Brewer Ot 786.50 12/17/2015 MIRIAM DANIEL, LELIA Brewer Ot 272.4 12/17/2015 MIRIAM DANIEL, LELIA Brewer Ot 401.9 12/17/2015 MIRIAM DANIEL, LELIA Brewer Ot 414.00 12/17/2015 MIRIAM DANIEL, LELIA Brewer Ot 786.50 12/17/2015 CARRIE FORTUNE Ot 272.4 12/17/2015 FLOR MARVIN MD Ot T84.59XA 12/26/2015 FLOR MARVIN MD Ot T84.59XA 12/27/2015 FLOR MARVIN MD Ot T84.59XA 04/05/2016 Ot 996.41 MECHANICAL LOOSENING OF PROSTHETIC JOINT 04/05/2016 Ot V43.65 KNEE JOINT REPLACEMENT STATUS 04/05/2016 Ot 414.00 CORON ATHEROSCLER NOS TYPE VESSEL, NATIV 04/05/2016 Ot 786.50 CHEST PAIN NOS 04/05/2016 Ot V72.81 EXAM-PRE- OPERATIVE CARDIOVASCULAR 04/05/2016 Ot 396.3 MITRAL/ AORTIC KAM INSUFF 04/05/2016 Ot 397.0 TRICUSPID VALVE DISEASE 04/05/2016 Ot 414.00 CORON ATHEROSCLER NOS TYPE VESSEL, NATIV 04/05/2016 Ot 416.8 CHR PULMON HEART DIS NEC 04/05/2016 Ot 786.50 CHEST PAIN NOS 04/05/2016 Ot V72.81 EXAM-PRE- OPERATIVE CARDIOVASCULAR 04/05/2016 Ot 272.4 HYPERLIPIDEMIA NEC/NOS 04/05/2016 Ot 401.9 HYPERTENSION NOS 04/05/2016 Ot 414.00 CORON ATHEROSCLER NOS TYPE VESSEL, NATIV 04/05/2016 Ot 401.9 HYPERTENSION NOS 04/05/2016 Ot 414.00 CORON ATHEROSCLER NOS TYPE VESSEL, NATIV 04/05/2016 Ot 440.21 ATHEROSCL [place] ARTER EXTREM W INTERMIT 04/05/2016 Ot V64.3 NO PROC FOR REASONS NEC 04/05/2016 Ot 401.9 HYPERTENSION NOS 04/05/2016 Ot 414.01 CORONARY ATHEROSCLEROSIS OF [place] CORON 04/05/2016 Ot 440.20 ATHEROSCLEROSIS [place] ARTERIES EXTREMIT 04/05/2016 Ot V72.63 PRE- PROCEDURAL LABORATORY EXAMINATION 04/05/2016 Ot V72.81 EXAM-PRE- OPERATIVE CARDIOVASCULAR 04/05/2016 Ot 726.73 CALCANEAL SPUR 04/05/2016 Ot V72.83 EXAM PRE- OPERATIVE NEC 04/05/2016 Ot V74.8 SCREEN- BACTERIAL DIS NEC 04/05/2016 ELIZABETH DANIEL, LISSA Tomlinson Ot 250.00 DIAB ALLY WO COMPL, TYPE II OR UNSPEC TY 04/05/2016 MIRIAM DANIEL, LELIA Brewer Ot 414.01 CORONARY ATHEROSCLEROSIS OF [place] CORON 04/05/2016 MIRIAM DANIEL, LELIA Brewer Ot 786.09 RESPIRATORY ABNORM NEC 04/05/2016 LELIA PINEDA MD Ot 786.50 CHEST PAIN NOS 04/05/2016 Ot 599.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 04/05/2016 Ot 788.30 UNSPECIFIED URINARY INCONTINENCE 04/05/2016 Ot V72.83 EXAM PRE- OPERATIVE NEC 04/05/2016 Ot V74.8 SCREEN- BACTERIAL DIS NEC 04/05/2016 Ot 272.4 HYPERLIPIDEMIA NEC/NOS 04/05/2016 Ot 401.9 HYPERTENSION NOS 04/05/2016 Ot 414.01 CORONARY ATHEROSCLEROSIS OF [place] CORON 04/05/2016 FLOR ARIZMENDI DO Ot 719.46 JOINT PAIN-L/LEG 04/05/2016 LJ DANIEL, DC Vick Ot 596.51 HYPERTONICITY OF BLADDER 04/05/2016 DC CALHOUN MD Ot V72.63 PRE-PROCEDURAL LABORATORY EXAMINATION 04/05/2016 DC CALHOUN MD Ot V72.84 EXAM PRE-OPERATIVE NOS 04/05/2016 DC CALHOUN MD Ot V74.8 SCREEN-BACTERIAL DIS NEC 04/05/2016 BLUFELIXFLOR GARCIA DO Ot 719.46 JOINT PAIN-L/LEG 04/05/2016 BLUFELIXFLOR GARCIA DO Ot V72.84 EXAM PRE-OPERATIVE NOS 04/05/2016 DC CALHOUN MD Ot 593.9 RENAL URETERAL DIS NOS 04/05/2016 CD CALHOUN MD Ot 593.9 RENAL URETERAL DIS NOS 04/05/2016 DC CALHOUN MD Ot V81.5 SCREEN FOR NEPHROPATHY 04/05/2016 Ot 250.00 DIAB ALLY WO COMPL, TYPE II OR UNSPEC TY 04/05/2016 LELIA PINEDA MD Ot 272.4 HYPERLIPIDEMIA NEC/NOS 04/05/2016 LELIA PINEDA MD Ot 401.9 HYPERTENSION NOS 04/05/2016 LELIA PINEDA MD Ot 414.9 CHR ISCHEMIC HRT DIS NOS 04/05/2016 LELIA PINEDA MD Ot 786.50 CHEST PAIN NOS 04/05/2016 LELIA PINEDA MD Ot 272.4 HYPERLIPIDEMIA NEC/NOS 04/05/2016 LELIA PNIEDA MD Ot 401.9 HYPERTENSION NOS 04/05/2016 LELIA PINEDA MD Ot 414.00 CORON ATHEROSCLER NOS TYPE VESSEL, NATIV 04/05/2016 LELIA PINEDA MD Ot 786.50 CHEST PAIN NOS 04/05/2016 CARRIE FORTUNE Ot 272.4 HYPERLIPIDEMIA NEC/NOS 04/05/2016 FLOR MARVIN MD Ot T84.59XA INFECT/INFLM REACTION DUE TO OTH INTERNA 04/05/2016 FLOR MARVIN MD Ot T84.59XA INFECT/INFLM REACTION DUE TO OTH INTERNA 04/05/2016 PANCHO MARQUIS Ot S61.216A LAC W/O FB OF R LITTLE FINGER W/O DAMAGE 04/05/2016 PANCHO MARQUIS Ot W45.2XXA LID OF CAN ENTERING THROUGH SKIN, INITIA 04/05/2016 PANCHO MARQUIS Ot Y92.[address] [facility] PL[address] [facility] (PRIVATE 04/05/2016 PANCHO MARQUIS Ot Y99.8 OTHER EXTERNAL CAUSE STATUS 04/14/2016 JEANNIE MARTINEZ MD Ot S61.211D LACERATION W/O FB OF L IDX FNGR W/O ROSEY 04/15/2016 JEANNIE MARTINEZ MD Ot S61.211D LACERATION W/O FB OF L IDX FNGR W/O ROSEY 07/14/2016 LELIA PINEDA MD Ot E78.5 HYPERLIPIDEMIA, UNSPECIFIED 07/14/2016 LELIA PINEDA MD Ot I10 ESSENTIAL (PRIMARY) HYPERTENSION 07/14/2016 LELIA PINEDA MD Ot I25.10 ATHSCL HEART DISEASE OF [place] CORONARY 07/14/2016 LELIA PINEDA MD Ot R07.89 OTHER CHEST PAIN 07/23/2016 LELIA PINEDA MD Ot E78.5 HYPERLIPIDEMIA, UNSPECIFIED 07/23/2016 LELIA PINEDA MD Ot I10 ESSENTIAL (PRIMARY) HYPERTENSION 07/23/2016 LELIA PINEDA MD Ot I25.10 ATHSCL HEART DISEASE OF [place] CORONARY 07/23/2016 LELIA PINEDA MD Ot R07.89 OTHER CHEST PAIN 11/27/2016 LELIA PINEDA MD Ot E78.2 MIXED HYPERLIPIDEMIA 11/27/2016 LELIA PINEDA MD Ot I10 ESSENTIAL (PRIMARY) HYPERTENSION 11/27/2016 LELIA PINEDA MD Ot I25.10 ATHSCL HEART DISEASE OF [place] CORONARY 11/27/2016 LELIA PINEDA MD Ot K27.9 [facility], SITE UNSP, UNSP AC OR CHR 11/27/2016 LELIA PINEDA MD Ot R07.9 CHEST PAIN, UNSPECIFIED 11/30/2016 Ot 272.4 HYPERLIPIDEMIA NEC/NOS 11/30/2016 Ot 401.9 HYPERTENSION NOS 11/30/2016 Ot 414.00 CORON ATHEROSCLER NOS TYPE VESSEL, NATIV 11/30/2016 Ot 401.9 HYPERTENSION NOS 11/30/2016 Ot 414.00 CORON ATHEROSCLER NOS TYPE VESSEL, NATIV 11/30/2016 Ot 440.21 ATHEROSCL [place] ARTER EXTREM W INTERMIT 11/30/2016 Ot V64.3 NO PROC FOR REASONS NEC 11/30/2016 Ot 401.9 HYPERTENSION NOS 11/30/2016 Ot 414.01 CORONARY ATHEROSCLEROSIS OF [place] CORON 11/30/2016 Ot 440.20 ATHEROSCLEROSIS [place] ARTERIES EXTREMIT 11/30/2016 Ot V72.63 PRE- PROCEDURAL LABORATORY EXAMINATION 11/30/2016 Ot V72.81 EXAM-PRE- OPERATIVE CARDIOVASCULAR 11/30/2016 Ot 726.73 CALCANEAL SPUR 11/30/2016 Ot V72.83 EXAM PRE- OPERATIVE NEC 11/30/2016 Ot V74.8 SCREEN- BACTERIAL DIS NEC 11/30/2016 ELIZABETH DANIEL, LISSA Tomlinson Ot 250.00 DIAB ALLY WO COMPL, TYPE II OR UNSPEC TY 11/30/2016 MIRIAM DANIEL, LELIA Brewer Ot 414.01 CORONARY ATHEROSCLEROSIS OF [place] CORON 11/30/2016 LELIA PINEDA MD Ot 786.09 RESPIRATORY ABNORM NEC 11/30/2016 LELIA PINEDA MD Ot 786.50 CHEST PAIN NOS 11/30/2016 Ot 599.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 11/30/2016 Ot 788.30 UNSPECIFIED URINARY INCONTINENCE 11/30/2016 Ot V72.83 EXAM PRE- OPERATIVE NEC 11/30/2016 Ot V74.8 SCREEN- BACTERIAL DIS NEC 11/30/2016 Ot 272.4 HYPERLIPIDEMIA NEC/NOS 11/30/2016 Ot 401.9 HYPERTENSION NOS 11/30/2016 Ot 414.01 CORONARY ATHEROSCLEROSIS OF [place] CORON 11/30/2016 FLOR ARIZMENDI DO Ot 719.46 JOINT PAIN-L/LEG 11/30/2016 DC CALHOUN MD Ot 596.51 HYPERTONICITY OF BLADDER 11/30/2016 DC CALHOUN MD Ot V72.63 PRE-PROCEDURAL LABORATORY EXAMINATION 11/30/2016 DC CALHOUN MD Ot V72.84 EXAM PRE-OPERATIVE NOS 11/30/2016 DC CALHOUN MD Ot V74.8 SCREEN-BACTERIAL DIS NEC 11/30/2016 FLOR ARIZMENDI DO Ot 719.46 JOINT PAIN-L/LEG 11/30/2016 FLOR ARIZMENDI DO Ot V72.84 EXAM PRE-OPERATIVE NOS 11/30/2016 DC CALHOUN MD Ot 593.9 RENAL URETERAL DIS NOS 11/30/2016 DC CALHOUN MD Ot 593.9 RENAL URETERAL DIS NOS 11/30/2016 LJ MD, DC A Ot V81.5 SCREEN FOR NEPHROPATHY 11/30/2016 Ot 250.00 DIAB ALLY WO COMPL, TYPE II OR UNSPEC TY 11/30/2016 LELIA PINEDA MD Ot 272.4 HYPERLIPIDEMIA NEC/NOS 11/30/2016 LELIA PINEDA MD Ot 401.9 HYPERTENSION NOS 11/30/2016 LELIA PINEDA MD Ot 414.9 CHR ISCHEMIC HRT DIS NOS 11/30/2016 LELIA PINEDA MD Ot 786.50 CHEST PAIN NOS 11/30/2016 LELIA PINEDA MD Ot 272.4 HYPERLIPIDEMIA NEC/NOS 11/30/2016 LELIA PINEDA MD Ot 401.9 HYPERTENSION NOS 11/30/2016 LELIA PINEDA MD Ot 414.00 CORON ATHEROSCLER NOS TYPE VESSEL, NATIV 11/30/2016 LELIA PINEDA MD Ot 786.50 CHEST PAIN NOS 11/30/2016 ACRRIE FORTUNE Ot 272.4 HYPERLIPIDEMIA NEC/NOS 11/30/2016 FLOR MARVIN MD Ot T84.59XA INFECT/INFLM REACTION DUE TO OTH INTERNA 11/30/2016 FLOR MARVIN MD Ot T84.59XA INFECT/INFLM REACTION DUE TO OTH INTERNA 11/30/2016 LELIA PINEDA MD Ot E78.5 HYPERLIPIDEMIA, UNSPECIFIED 11/30/2016 LELIA PINEDA MD Ot I10 ESSENTIAL (PRIMARY) HYPERTENSION 11/30/2016 LELIA PINEDA MD Ot I25.10 ATHSCL HEART DISEASE OF [place] CORONARY 11/30/2016 LELIA PINEDA MD Ot R07.89 OTHER CHEST PAIN 11/30/2016 LELIA PINEDA MD Ot E78.2 MIXED HYPERLIPIDEMIA 11/30/2016 LELIA PINEDA MD Ot I10 ESSENTIAL (PRIMARY) HYPERTENSION 11/30/2016 LELIA PINEDA MD Ot I25.10 ATHSCL HEART DISEASE OF [place] CORONARY 11/30/2016 LELIA PINEDA MD Ot K27.9 PEPTIC ULC, SITE UNSP, UNSP AC OR CHR 11/30/2016 LELIA PINEDA MD Ot R07.9 CHEST PAIN, UNSPECIFIED 11/30/2016 LELIA PINEDA MD Ot E78.2 MIXED HYPERLIPIDEMIA 11/30/2016 MIRIAM MD, BASHAR J Ot I10 ESSENTIAL (PRIMARY) HYPERTENSION 11/30/2016 LELIA PINEDA MD Ot I25.10 ATHSCL HEART DISEASE OF [place] CORONARY 11/30/2016 LELIA PINEDA MD Ot K27.9 PEPTIC ULC, SITE UNSP, UNSP AC OR CHR 11/30/2016 LELIA PINEDA MD Ot R07.9 CHEST PAIN, UNSPECIFIED 12/01/2016 LELIA PINEDA MD Ot E78.2 MIXED HYPERLIPIDEMIA 12/01/2016 LELIA PINEDA MD Ot I10 ESSENTIAL (PRIMARY) HYPERTENSION 12/01/2016 LELIA PINEDA MD Ot I25.10 ATHSCL HEART DISEASE OF [place] CORONARY 12/01/2016 LELIA PINEDA MD Ot K27.9 PEPTIC ULC, SITE UNSP, UNSP AC OR CHR 12/01/2016 LELIA PINEDA MD Ot R07.9 CHEST PAIN, UNSPECIFIED 12/04/2016 LELIA PINEDA MD Ot E78.2 MIXED HYPERLIPIDEMIA 12/04/2016 LELIA PINEDA MD Ot I10 ESSENTIAL (PRIMARY) HYPERTENSION 12/04/2016 LELIA PINEDA MD Ot I25.10 ATHSCL HEART DISEASE OF [place] CORONARY 12/04/2016 LELIA PINEDA MD Ot K27.9 PEPTIC ULC, SITE UNSP, UNSP AC OR CHR 12/04/2016 LELIA PINEDA MD Ot R07.9 CHEST PAIN, UNSPECIFIED 12/11/2016 LELIA PINEDA MD Ot E78.2 MIXED HYPERLIPIDEMIA 12/11/2016 LELIA PINEDA MD Ot I10 ESSENTIAL (PRIMARY) HYPERTENSION 12/11/2016 LELIA PINEDA MD Ot I25.10 ATHSCL HEART DISEASE OF [place] CORONARY 12/11/2016 LELIA PINEDA MD Ot K27.9 PEPTIC ULC, SITE UNSP, UNSP AC OR CHR 12/11/2016 LELIA PINEDA MD Ot R07.9 CHEST PAIN, UNSPECIFIED 12/16/2016 LELIA PINEDA MD Ot E78.2 MIXED HYPERLIPIDEMIA 12/16/2016 LELIA PINEDA MD Ot I10 ESSENTIAL (PRIMARY) HYPERTENSION 12/16/2016 LELIA PINEDA MD Ot I25.10 ATHSCL HEART DISEASE OF [place] CORONARY 12/16/2016 LELIA PINEDA MD Ot K27.9 PEPTIC ULC, SITE UNSP, UNSP AC OR CHR 12/16/2016 LELIA PINEDA MD Ot R07.9 CHEST PAIN, UNSPECIFIED 04/05/2017 Ot 401.9 HYPERTENSION NOS 04/05/2017 Ot 414.00 CORON ATHEROSCLER NOS TYPE VESSEL, NATIV 04/05/2017 Ot 440.21 ATHEROSCL [place] ARTER EXTREM W INTERMIT 04/05/2017 Ot V64.3 NO PROC FOR REASONS NEC 04/05/2017 Ot 401.9 HYPERTENSION NOS 04/05/2017 Ot 414.01 CORONARY ATHEROSCLEROSIS OF [place] CORON 04/05/2017 Ot 440.20 ATHEROSCLEROSIS [place] ARTERIES EXTREMIT 04/05/2017 Ot V72.63 PRE- PROCEDURAL LABORATORY EXAMINATION 04/05/2017 Ot V72.81 EXAM-PRE- OPERATIVE CARDIOVASCULAR 04/05/2017 Ot 726.73 CALCANEAL SPUR 04/05/2017 Ot V72.83 EXAM PRE- OPERATIVE NEC 04/05/2017 Ot V74.8 SCREEN- BACTERIAL DIS NEC 04/05/2017 ELIZABETH DANIEL, LISSA Tomlinson Ot 250.00 DIAB ALLY WO COMPL, TYPE II OR UNSPEC TY 04/05/2017 LELIA PINEDA MD Ot 414.01 CORONARY ATHEROSCLEROSIS OF [place] CORON 04/05/2017 LELIA PINEDA MD Ot 786.09 RESPIRATORY ABNORM NEC 04/05/2017 LELIA PINEDA MD Ot 786.50 CHEST PAIN NOS 04/05/2017 Ot 599.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 04/05/2017 Ot 788.30 UNSPECIFIED URINARY INCONTINENCE 04/05/2017 Ot V72.83 EXAM PRE- OPERATIVE NEC 04/05/2017 Ot V74.8 SCREEN- BACTERIAL DIS NEC 04/05/2017 Ot 272.4 HYPERLIPIDEMIA NEC/NOS 04/05/2017 Ot 401.9 HYPERTENSION NOS 04/05/2017 Ot 414.01 CORONARY ATHEROSCLEROSIS OF [place] CORON 04/05/2017 FLOR ARIZMENDI DO Ot 719.46 JOINT PAIN-L/LEG 04/05/2017 DC CALHOUN MD Ot 596.51 HYPERTONICITY OF BLADDER 04/05/2017 DC CALHOUN MD Ot V72.63 PRE-PROCEDURAL LABORATORY EXAMINATION 04/05/2017 DC CALHOUN MD Ot V72.84 EXAM PRE-OPERATIVE NOS 04/05/2017 DC CALHOUN MD Ot V74.8 SCREEN-BACTERIAL DIS NEC 04/05/2017 KYLEIGH FLOR Hayward Ot 719.46 JOINT PAIN-L/LEG 04/05/2017 KYLEIGH FLOR Hayward Ot V72.84 EXAM PRE-OPERATIVE NOS 04/05/2017 DC CALHOUN MD Ot 593.9 RENAL URETERAL DIS NOS 04/05/2017 DC CALHOUN MD Ot 593.9 RENAL URETERAL DIS NOS 04/05/2017 DC CALHOUN MD Ot V81.5 SCREEN FOR NEPHROPATHY 04/05/2017 Ot 250.00 DIAB ALLY WO COMPL, TYPE II OR UNSPEC TY 04/05/2017 LELIA PINEDA MD Ot 272.4 HYPERLIPIDEMIA NEC/NOS 04/05/2017 LELIA PINEDA MD Ot 401.9 HYPERTENSION NOS 04/05/2017 LELIA PINEDA MD Ot 414.9 CHR ISCHEMIC HRT DIS NOS 04/05/2017 LELIA PINEDA MD Ot 786.50 CHEST PAIN NOS 04/05/2017 LELIA PINEDA MD Ot 272.4 HYPERLIPIDEMIA NEC/NOS 04/05/2017 LELIA PINEDA MD Ot 401.9 HYPERTENSION NOS 04/05/2017 LELIA PINEDA MD Ot 414.00 CORON ATHEROSCLER NOS TYPE VESSEL, NATIV 04/05/2017 LELIA PINEDA MD Ot 786.50 CHEST PAIN NOS 04/05/2017 CARRIE FORTUNE Ot 272.4 HYPERLIPIDEMIA NEC/NOS 04/05/2017 FLOR MARVIN MD Ot T84.59XA INFECT/INFLM REACTION DUE TO OTH INTERNA 04/05/2017 FLOR MARVIN MD Ot T84.59XA INFECT/INFLM REACTION DUE TO OTH INTERNA 04/05/2017 LELIA PINEDA MD Ot E78.5 HYPERLIPIDEMIA, UNSPECIFIED 04/05/2017 LELIA PINEDA MD Ot I10 ESSENTIAL (PRIMARY) HYPERTENSION 04/05/2017 LELIA PINEDA MD Ot I25.10 ATHSCL HEART DISEASE OF [place] CORONARY 04/05/2017 LELIA PINEDA MD Ot R07.89 OTHER CHEST PAIN 04/05/2017 LELIA PINEDA MD Ot E78.2 MIXED HYPERLIPIDEMIA 04/05/2017 LELIA PINEDA MD Ot I10 ESSENTIAL (PRIMARY) HYPERTENSION 04/05/2017 LELIA PINEDA MD Ot I25.10 ATHSCL HEART DISEASE OF [place] CORONARY 04/05/2017 LELIA PINEDA MD Ot K27.9 PEPTIC ULC, SITE UNSP, UNSP AC OR CHR 04/05/2017 LELIA PINEDA MD Ot R07.9 CHEST PAIN, UNSPECIFIED 04/05/2017 LELIA PINEDA MD Ot E78.2 MIXED HYPERLIPIDEMIA 04/05/2017 LELIA PINEDA MD Ot I10 ESSENTIAL (PRIMARY) HYPERTENSION 04/05/2017 LELIA PINEDA MD Ot I25.10 ATHSCL HEART DISEASE OF [place] CORONARY 04/05/2017 LELIA PINEDA MD Ot K27.9 PEPTIC ULC, SITE UNSP, UNSP AC OR CHR 04/05/2017 LELIA PINEDA MD Ot R07.9 CHEST PAIN, UNSPECIFIED 04/05/2017 DEEJAY FELIPE APRN Ot M25.552 PAIN IN LEFT HIP 04/05/2017 DEEJAY FELIPE APRN Ot N39.0 URINARY TRACT INFECTION, SITE NOT SPECIF 04/05/2017 DEEJAY FELIPE DIRECTOR OF ENTERTAINMENT Ot 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 04/05/2017 DEEJAY FELIPE APRN Ot Z79.899 OTHER GRAPHIC ART DESIGNER (CURRENT) DRUG THERAPY 04/07/2017 DEEJAY FELIPE APRN Ot M25.552 PAIN IN LEFT HIP 04/07/2017 DEEJAY FELIPE APRN Ot N39.0 URINARY TRACT INFECTION, SITE NOT SPECIF 04/07/2017 DEEJAY FELIPE DIRECTOR OF ENTERTAINMENT Ot 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 04/07/2017 DEEJAY FELIPE DIRECTOR OF ENTERTAINMENT Ot Z79.899 OTHER RETIREMENT (CURRENT) DRUG THERAPY 05/05/2017 VU CASTELLON DO Ot E11.9 TYPE 2 DIABETES MELLITUS WITHOUT COMPLIC 05/05/2017 VU CASTELLON DO Ot G89.29 OTHER CHRONIC PAIN 05/05/2017 VU CASTELLON DO Ot I25.10 ATHSCL HEART DISEASE OF [place] CORONARY 05/05/2017 VU CASTELLON DO Ot M17.0 BILATERAL PRIMARY OSTEOARTHRITIS OF [place]NEE 05/05/2017 RAVINDER VU URBANO Ot M54.5 LOW BACK PAIN 05/05/2017 RAVINDER VU URBANO Ot Z79.82 RETIREMENT (CURRENT) USE OF ASPIRIN 05/05/2017 RAVINDER VU URBANO Ot Z87.891 PERSONAL HISTORY OF NICOTINE DEPENDENCE 05/05/2017 VU CASTELLON DO Ot Z95.1 PRESENCE OF AORTOCORONARY BYPASS GRAFT 05/05/2017 RAVINDER VU URBANO Ot Z96.653 PRESENCE OF ARTIFICIAL KNEE JOINT, BILAT 05/11/2017 RAVINDER FRANC URBANOA K Ot E11.9 TYPE 2 DIABETES MELLITUS WITHOUT COMPLIC 05/11/2017 VU CASTELLON DO Ot G89.29 OTHER CHRONIC PAIN 05/11/2017 RAVINDER VU URBANO Ot I25.10 ATHSCL HEART DISEASE OF [place] CORONARY 05/11/2017 RAVINDER VU URBANO Ot M17.0 BILATERAL PRIMARY OSTEOARTHRITIS OF KNEE 05/11/2017 RAVINDER VU URBANO Ot M54.5 LOW BACK PAIN 05/11/2017 RAVINDER VU URBANO Ot 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 05/11/2017 RAVINDER VU URBANO Ot Z87.891 PERSONAL HISTORY OF NICOTINE DEPENDENCE 05/11/2017 RAVINDER VU URBANO Ot Z95.1 PRESENCE OF AORTOCORONARY BYPASS GRAFT 05/11/2017 RAVINDER VU URBANO Ot Z96.653 PRESENCE OF ARTIFICIAL KNEE JOINT, BILAT 08/10/2017 LELIA PINEDA MD Ot E11.9 TYPE 2 DIABETES MELLITUS WITHOUT COMPLIC 08/10/2017 LELIA PINEDA MD Ot E78.2 MIXED HYPERLIPIDEMIA 08/10/2017 LELIA PINEDA MD Ot I10 ESSENTIAL (PRIMARY) HYPERTENSION 08/10/2017 LELIA PINEDA MD Ot I25.10 ATHSCL HEART DISEASE OF [place] CORONARY 08/10/2017 LELIA PINEDA MD Ot I50.9 HEART FAILURE, UNSPECIFIED 08/10/2017 LELIA PINEDA MD Ot R07.89 OTHER CHEST PAIN 08/10/2017 DEEJAY FELIPE APRN Ot E03.9 HYPOTHYROIDISM, UNSPECIFIED 08/10/2017 DEEJAY FELIPE APRN Ot E11.9 TYPE 2 DIABETES MELLITUS WITHOUT COMPLIC 08/10/2017 DEEJAY FELIPE APRN Ot F32.9 MAJOR DEPRESSIVE DISORDER, SINGLE EPISOD 08/10/2017 DEEJAY FELIPE APRN Ot F41.9 ANXIETY DISORDER, UNSPECIFIED 08/10/2017 DEEJAY FELIPE APRN Ot J45.909 UNSPECIFIED ASTHMA, UNCOMPLICATED 08/10/2017 DEEJAY FELIPE APRN Ot M19.90 UNSPECIFIED OSTEOARTHRITIS, UNSPECIFIED 08/10/2017 DEEJAY FELIPE APRN Ot M79.672 PAIN IN LEFT FOOT 08/10/2017 DEEJAY FELIPE APRN Ot M81.0 AGE-RELATED OSTEOPOROSIS W/O CURRENT PAT 08/10/2017 DEEJAY FELIPE APRN Ot N28.9 DISORDER OF KIDNEY AND URETER, UNSPECIFI 08/10/2017 DEEJAY FELIPE APRN Ot S93.602A UNSPECIFIED SPRAIN OF LEFT FOOT, INITIAL 08/10/2017 DEEJAY FELIPE APRN Ot W18.39XA OTHER FALL ON SAME LEVEL, INITIAL ENCOUN 08/10/2017 DEEJAY FELIPE APRN Ot Y92.002 BATHRM OF [facility] NON-INSTITUT RESDNCE SNGL 08/10/2017 DEEJAY FELIPE APRN Ot 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 08/10/2017 DEEJAY FELIPE APRN Ot Z82.49 FAMILY HX OF ISCHEM HEART DIS AND OTH DI 08/10/2017 DEEJAY FELIPE APRN Ot Z90.49 ACQUIRED ABSENCE OF OTHER SPECIFIED PART 08/10/2017 DEEJAY FELIPE APRN Ot Z90.710 ACQUIRED ABSENCE OF BOTH CERVIX AND UTER 08/10/2017 DEEJAY FELIPE APRN Ot Z95.1 PRESENCE OF AORTOCORONARY BYPASS GRAFT 08/10/2017 DEEJAY FELIPE APRN Ot Z96.653 PRESENCE OF ARTIFICIAL KNEE JOINT, BILAT 08/12/2017 DEEJAY FELIPE APRN Ot E03.9 HYPOTHYROIDISM, UNSPECIFIED 08/12/2017 DEEJAY FELIPE APRN Ot E11.9 TYPE 2 DIABETES MELLITUS WITHOUT COMPLIC 08/12/2017 DEEJAY FELIPE APRN Ot F32.9 MAJOR DEPRESSIVE DISORDER, SINGLE EPISOD 08/12/2017 DEEJAY FELIPE APRN Ot F41.9 ANXIETY DISORDER, UNSPECIFIED 08/12/2017 DEEJAY FELIPE APRN Ot J45.909 UNSPECIFIED ASTHMA, UNCOMPLICATED 08/12/2017 DEEJAY FELIPE APRN Ot M19.90 UNSPECIFIED OSTEOARTHRITIS, UNSPECIFIED 08/12/2017 DEEJAY FELIPE APRN Ot M79.672 PAIN IN LEFT FOOT 08/12/2017 DEEJAY FELIPE APRN Ot M81.0 AGE-RELATED OSTEOPOROSIS W/O CURRENT PAT 08/12/2017 DEEJAY FELIPE APRN Ot N28.9 DISORDER OF KIDNEY AND URETER, UNSPECIFI 08/12/2017 DEEJAY FELIPE APRN Ot S93.602A UNSPECIFIED SPRAIN OF LEFT FOOT, INITIAL 08/12/2017 DEEJAY FELIPE APRN Ot W18.39XA OTHER FALL ON SAME LEVEL, INITIAL ENCOUN 08/12/2017 DEEJAY FELIPE APRN Ot Y92.002 BATHRM OF [facility] NON-INSTITUT RESDNCE SNGL 08/12/2017 DEEJAY FELIPE APRN Ot 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 08/12/2017 DEEJAY FELIPE APRN Ot Z82.49 FAMILY HX OF ISCHEM HEART DIS AND OTH DI 08/12/2017 DEEJAY FELIPE APRN Ot Z90.49 ACQUIRED ABSENCE OF OTHER SPECIFIED PART 08/12/2017 DEEJAY FELIPE APRN Ot Z90.710 ACQUIRED ABSENCE OF BOTH CERVIX AND UTER 08/12/2017 DEEJAY FELIPE APRN Ot Z95.1 PRESENCE OF AORTOCORONARY BYPASS GRAFT 08/12/2017 DEEJAY FELIPE APRN Ot Z96.653 PRESENCE OF ARTIFICIAL KNEE JOINT, BILAT 11/17/2017 LELIA PINEDA MD Ot E78.2 MIXED HYPERLIPIDEMIA 11/17/2017 LELIA PINEDA MD Ot I10 ESSENTIAL (PRIMARY) HYPERTENSION 11/17/2017 LELIA PINEDA MD Ot I25.10 ATHSCL HEART DISEASE OF [place] CORONARY 11/17/2017 LELIA PINEDA MD Ot K27.9 PEPTIC ULC, SITE UNS, [facility] AC OR CHR 11/17/2017 LELIA PINEDA MD Ot R07.9 CHEST PAIN, UNSPECIFIED 11/17/2017 LELIA PINEDA MD Ot E78.2 MIXED HYPERLIPIDEMIA 11/17/2017 LELIA PINEDA MD Ot I10 ESSENTIAL (PRIMARY) HYPERTENSION 11/17/2017 LELIA PINEDA MD Ot I25.10 ATHSCL HEART DISEASE OF [place] CORONARY 11/17/2017 LELIA PINEDA MD Ot K27.9 PEPTIC ULC, SITE UNSP, UNSP AC OR CHR 11/17/2017 LELIA PINEDA MD Ot R07.9 CHEST PAIN, UNSPECIFIED 11/17/2017 LELIA PINEDA MD Ot E11.9 TYPE 2 DIABETES MELLITUS WITHOUT COMPLIC 11/17/2017 LELIA PINEDA MD Ot E78.2 MIXED HYPERLIPIDEMIA 11/17/2017 LELIA PINEDA MD Ot I10 ESSENTIAL (PRIMARY) HYPERTENSION 11/17/2017 LELIA PINEDA MD Ot I25.10 ATHSCL HEART DISEASE OF [place] CORONARY 11/17/2017 LELIA PINEDA MD Ot I50.9 HEART FAILURE, UNSPECIFIED 11/17/2017 LELIA PINEDA MD Ot R07.89 OTHER CHEST PAIN 11/17/2017 Ot 726.73 CALCANEAL SPUR 11/17/2017 Ot V72.83 EXAM PRE- OPERATIVE NEC 11/17/2017 Ot V74.8 SCREEN- BACTERIAL DIS NEC 11/17/2017 ELIZABETH DANIEL, LISSA Tomlinson Ot 250.00 DIAB ALLY WO COMPL, TYPE II OR UNSPEC TY 11/17/2017 LELIA PINEDA MD Ot 414.01 CORONARY ATHEROSCLEROSIS OF [place] CORON 11/17/2017 LELIA PINEDA MD Ot 786.09 RESPIRATORY ABNORM NEC 11/17/2017 LELIA PINEDA MD Ot 786.50 CHEST PAIN NOS 11/17/2017 Ot 599.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 11/17/2017 Ot 788.30 UNSPECIFIED URINARY INCONTINENCE 11/17/2017 Ot V72.83 EXAM PRE- OPERATIVE NEC 11/17/2017 Ot V74.8 SCREEN- BACTERIAL DIS NEC 11/17/2017 Ot 272.4 HYPERLIPIDEMIA NEC/NOS 11/17/2017 Ot 401.9 HYPERTENSION NOS 11/17/2017 Ot 414.01 CORONARY ATHEROSCLEROSIS OF [place] CORON 11/17/2017 FLOR ARIZMENDI DO Ot 719.46 JOINT PAIN-L/LEG 11/17/2017 DC CALHOUN MD Ot 596.51 HYPERTONICITY OF BLADDER 11/17/2017 DC CALHOUN MD Ot V72.63 PRE-PROCEDURAL LABORATORY EXAMINATION 11/17/2017 DC CALHOUN MD Ot V72.84 EXAM PRE-OPERATIVE NOS 11/17/2017 DC CALHOUN MD Ot V74.8 SCREEN-BACTERIAL DIS NEC 11/17/2017 BLULOYD FLOR URBANO Ot 719.46 JOINT PAIN-L/LEG 11/17/2017 JOSEPHFLOR GARCIA DO Ot V72.84 EXAM PRE-OPERATIVE NOS 11/17/2017 DC CALHOUN MD Ot 593.9 RENAL URETERAL DIS NOS 11/17/2017 DC CALHOUN MD Ot 593.9 RENAL URETERAL DIS NOS 11/17/2017 DC CALHOUN MD Ot V81.5 SCREEN FOR NEPHROPATHY 11/17/2017 Ot 250.00 DIAB ALLY WO COMPL, TYPE II OR UNSPEC TY 11/17/2017 LELIA PINEDA MD Ot 272.4 HYPERLIPIDEMIA NEC/NOS 11/17/2017 LELIA PINEDA MD Ot 401.9 HYPERTENSION NOS 11/17/2017 LELIA PINEDA MD Ot 414.9 CHR ISCHEMIC HRT DIS NOS 11/17/2017 LELIA PINEDA MD Ot 786.50 CHEST PAIN NOS 11/17/2017 LELIA PINEDA MD Ot 272.4 HYPERLIPIDEMIA NEC/NOS 11/17/2017 LELIA PINEDA MD Ot 401.9 HYPERTENSION NOS 11/17/2017 LELIA PINEDA MD Ot 414.00 CORON ATHEROSCLER NOS TYPE VESSEL, NATIV 11/17/2017 LELIA PINEDA MD Ot 786.50 CHEST PAIN NOS 11/17/2017 CARRIE FORTUNE Ot 272.4 HYPERLIPIDEMIA NEC/NOS 11/17/2017 FLOR MARVIN MD Ot T84.59XA INFECT/INFLM REACTION DUE TO OTH INTERNA 11/17/2017 FLOR MARVIN MD Ot T84.59XA INFECT/INFLM REACTION DUE TO OTH INTERNA 11/17/2017 LELIA PINEDA MD Ot E78.5 HYPERLIPIDEMIA, UNSPECIFIED 11/17/2017 LELIA PINEDA MD Ot I10 ESSENTIAL (PRIMARY) HYPERTENSION 11/17/2017 LELIA PINEDA MD Ot I25.10 ATHSCL HEART DISEASE OF [place] CORONARY 11/17/2017 LELIA PINEDA MD Ot R07.89 OTHER CHEST PAIN 11/17/2017 LELIA PINEDA MD Ot E78.2 MIXED HYPERLIPIDEMIA 11/17/2017 LELIA PINEDA MD Ot I10 ESSENTIAL (PRIMARY) HYPERTENSION 11/17/2017 LELIA PINEDA MD Ot I25.10 ATHSCL HEART DISEASE OF [place] CORONARY 11/17/2017 LELIA PINEDA MD Ot K27.9 PEPTIC ULC, SITE UNSP, UNSP AC OR CHR 11/17/2017 LELIA PINEDA MD Ot R07.9 CHEST PAIN, UNSPECIFIED 11/17/2017 LELIA PINEAD MD Ot E78.2 MIXED HYPERLIPIDEMIA 11/17/2017 LELIA PINEDA MD Ot I10 ESSENTIAL (PRIMARY) HYPERTENSION 11/17/2017 LELIA PINEDA MD Ot I25.10 ATHSCL HEART DISEASE OF [place] CORONARY 11/17/2017 LELIA PINEDA MD Ot K27.9 PEPTIC ULC, SITE UNSP, UNSP AC OR CHR 11/17/2017 LELIA PINEDA MD Ot R07.9 CHEST PAIN, UNSPECIFIED 11/17/2017 LELIA PINEDA MD Ot E11.9 TYPE 2 DIABETES MELLITUS WITHOUT COMPLIC 11/17/2017 LELIA PINEDA MD Ot E78.2 MIXED HYPERLIPIDEMIA 11/17/2017 LELIA PINEDA MD Ot I10 ESSENTIAL (PRIMARY) HYPERTENSION 11/17/2017 LELIA PINDEA MD Ot I25.10 ATHSCL HEART DISEASE OF [place] CORONARY 11/17/2017 LELIA PINEDA MD Ot I50.9 HEART FAILURE, UNSPECIFIED 11/17/2017 LELIA PINEDA MD Ot R07.89 OTHER CHEST PAIN 12/24/2017 LELIA PINEDA MD Ot E11.9 TYPE 2 DIABETES MELLITUS WITHOUT COMPLIC 12/24/2017 LELIA PINEDA MD Ot E78.2 MIXED HYPERLIPIDEMIA 12/24/2017 LELIA PINEDA MD Ot I11.0 HYPERTENSIVE HEART DISEASE WITH HEART FA 12/24/2017 LELIA PINEDA MD Ot I25.10 ATHSCL HEART DISEASE OF [place] CORONARY 12/24/2017 LELIA PINEDA MD Ot I50.9 HEART FAILURE, UNSPECIFIED 12/24/2017 LELIA PINEDA MD Ot R07.89 OTHER CHEST PAIN 01/14/2018 LELIA PINEDA MD Ot E11.9 TYPE 2 DIABETES MELLITUS WITHOUT COMPLIC 01/14/2018 LELIA PINEDA MD Ot E78.2 MIXED HYPERLIPIDEMIA 01/14/2018 LELIA PINEDA MD Ot I11.0 HYPERTENSIVE HEART DISEASE WITH HEART FA 01/14/2018 LELIA PINEDA MD Ot I25.10 ATHSCL HEART DISEASE OF [place] CORONARY 01/14/2018 LELIA PINEDA MD Ot I50.9 HEART FAILURE, UNSPECIFIED 01/14/2018 LELIA PINEDA MD Ot R07.89 OTHER CHEST PAIN 01/24/2018 LELIA PINEDA MD Ot E11.9 TYPE 2 DIABETES MELLITUS WITHOUT COMPLIC 01/24/2018 LELIA PINEDA MD Ot E78.2 MIXED HYPERLIPIDEMIA 01/24/2018 LELIA PINEDA MD Ot I11.0 HYPERTENSIVE HEART DISEASE WITH HEART FA 01/24/2018 LELIA PINEDA MD Ot I25.10 ATHSCL HEART DISEASE OF [place] CORONARY 01/24/2018 LELIA PINEDA MD Ot I50.9 HEART FAILURE, UNSPECIFIED 01/24/2018 LELIA PINEDA MD Ot R07.89 OTHER CHEST PAIN 05/06/2018 LELIA PINEDA MD Ot E78.2 MIXED HYPERLIPIDEMIA 05/06/2018 LELIA PINEDA MD Ot I10 ESSENTIAL (PRIMARY) HYPERTENSION 05/06/2018 LELIA PINEDA MD Ot I25.10 ATHSCL HEART DISEASE OF [place] CORONARY 05/06/2018 LELIA PINEDA MD Ot K27.9 PEPTIC UL, SITE UNSP, UNSP AC OR CHR 05/06/2018 LELIA PINEDA MD Ot R07.9 CHEST PAIN, UNSPECIFIED 06/10/2018 LELIA PINEDA MD Ot E11.9 TYPE 2 DIABETES MELLITUS WITHOUT COMPLIC 06/10/2018 LELIA PINEDA MD Ot E78.2 MIXED HYPERLIPIDEMIA 06/10/2018 LELIA PINEDA MD Ot I10 ESSENTIAL (PRIMARY) HYPERTENSION 06/10/2018 LELIA PINEDA MD Ot I25.10 ATHSCL HEART DISEASE OF [place] CORONARY 06/10/2018 LELIA PINEDA MD Ot I50.9 HEART FAILURE, UNSPECIFIED 06/10/2018 LELIA PINEDA MD Ot R07.89 OTHER CHEST PAIN Procedures Code Description Performed By Performed On 96.04 INSERT ENDOTRACHEAL TUBE 02/03/2013 96.71 CONTINUOUS INVASIVE MECHANICAL VENTILATI 02/03/2013 38924 ROUTINE VENIPUNCTURE 02/10/2013 93986 CMP 02/10/2013 85417 LIPID PANEL 02/10/2013 [id number] GFR CALC (RESULT ONLY) 02/10/2013 99226 CBC 02/10/2013 Dc Olvera 02/16/2013 98373 PULMONARY FUNCTION TEST (IN- HOUSE) 03/07/2013 06152 PULMONARY FUNCTION TEST (IN- HOUSE) 03/07/2013 80797 RESPIRATORY FLOW VOLUME LOOP 03/07/2013 59132 MICRO ALBUMIN-IN HOUSE 03/14/2013 97863 A1C (IN-HOUSE) 03/14/2013 59346 OXIMETRY 03/31/2013 PHYSICAL PHYSICAL THERAPY, VIA [facility] 07/11/2013 47142 URINE DRUG SCREEN (IN-HOUSE ) 09/29/2013 64132 A1C (IN-HOUSE) 10/03/2013 19117 ROUTINE VENIPUNCTURE 01/29/2014 26143 TSH 01/29/2014 06943 A1C (IN-HOUSE) 01/29/2014 03470 CBC 01/29/2014 [id number] GFR CALC (RESULT ONLY) 01/29/2014 84302 CMP 01/29/2014 70288 LIPID PANEL 01/29/2014 96238 WART DESTRUCT 1-14 (CRYO) 02/13/2014 90655 ROUTINE VENIPUNCTURE 03/16/2014 96674 TSH 03/16/2014 00.84 RILEY OF TOTAL KNEE REPLACEMENT, TIBIAL 03/29/2014 43233 A1C (IN-HOUSE) 06/20/2014 10583 INFLUENZA A & B (IN-HOUSE) 12/12/2014 J7613 ALBUTEROL UNIT DOSE FORM INHALED 02/26/2015 55111 NEBULIZER TREATMENT 02/26/2015 41302 OXIMETRY 02/26/2015 Results Test Result Range Complete blood count (CBC) with automated white blood cell (WBC) differential - 04/05/17 16:29 Blood leukocytes automated count (number/volume) 7.0 10*3/uL 4.3-11.0 Blood erythrocytes automated count (number/volume) 5.10 10*6/uL 4.35-5.85 Venous blood hemoglobin measurement (mass/volume) 14.4 g/dL 11.5-16.0 Blood hematocrit (volume fraction) 45 % 35-52 Automated erythrocyte mean corpuscular volume 88 [foz_us] 80-99 Automated erythrocyte mean corpuscular hemoglobin (mass per erythrocyte) 28 pg 25-34 Automated erythrocyte mean corpuscular hemoglobin concentration measurement ( mass/volume) 32 g/dL 32-36 Automated erythrocyte distribution width ratio 15.1 % 10.0-14.5 Automated blood platelet count (count/volume) 254 10*3/uL 130-400 Automated blood platelet mean volume measurement 8.8 [foz_us] 7.4-10.4 Automated blood neutrophils/100 leukocytes 57 % 42-75 Automated blood lymphocytes/100 leukocytes 33 % 12-44 Blood monocytes/100 leukocytes 7 % 0-12 Automated blood eosinophils/100 leukocytes 2 % 0-10 Automated blood basophils/100 leukocytes 0 % 0-10 Blood neutrophils automated count (number/volume) 4.0 10*3 1.8-7.8 Blood lymphocytes automated count (number/volume) 2.3 10*3 1.0-4.0 Blood monocytes automated count (number/volume) 0.5 10*3 0.0-1.0 Automated eosinophil count 0.2 10*3/uL 0.0-0.3 Automated blood basophil count (count/volume) 0.0 10*3/uL 0.0-0.1 Comprehensive metabolic panel - 04/05/17 16:29 Serum or plasma sodium measurement (moles/volume) 143 mmol/L 135-145 Serum or plasma potassium measurement (moles/volume) 4.2 mmol/L 3.6-5.0 Serum or plasma chloride measurement (moles/volume) 108 mmol/L 98-107 Carbon dioxide 30 mmol/L 21-32 Serum or plasma anion gap determination (moles/volume) 5 mmol/L 5-14 Serum or plasma urea nitrogen measurement (mass/volume) 13 mg/dL 7-18 Serum or plasma creatinine measurement (mass/volume) 1.02 mg/dL 0.60-1.30 Serum or plasma urea nitrogen/creatinine mass ratio 13 NRG Serum or plasma creatinine measurement with calculation of estimated glomerular filtration rate 54 NRG Serum or plasma glucose measurement (mass/volume) 101 mg/dL 70-105 Serum or plasma calcium measurement (mass/volume) 9.2 mg/dL 8.5-10.1 Serum or plasma total bilirubin measurement (mass/volume) 0.6 mg/dL 0.1-1.0 Serum or plasma alkaline phosphatase measurement (enzymatic activity/volume) 77 U/L 40-136 Serum or plasma aspartate aminotransferase measurement (enzymatic activity/ volume) 23 U/L 5-34 Serum or plasma alanine aminotransferase measurement (enzymatic activity/volume ) 25 U/L 0-55 Serum or plasma protein measurement (mass/volume) 7.3 g/dL 6.4-8.2 Serum or plasma albumin measurement (mass/volume) 4.3 g/dL 3.2-4.5 Complete urinalysis with reflex to culture - 04/05/17 17:14 Urine color determination YELLOW NRG Urine clarity determination SLIGHTLY CLOUDY NRG Urine pH measurement by test strip 5 5-9 Specific gravity of urine by test strip 1.020 1.016- 1.022 Urine protein assay by test strip, semi-quantitative 1+ NEGATIVE Urine glucose detection by automated test strip NEGATIVE NEGATIVE Erythrocytes detection in urine sediment by light microscopy 2+ NEGATIVE Urine ketones detection by automated test strip NEGATIVE NEGATIVE Urine nitrite detection by test strip POSITIVE NEGATIVE Urine total bilirubin detection by test strip NEGATIVE NEGATIVE Urine urobilinogen measurement by automated test strip (mass/volume) NORMAL NORMAL Urine leukocyte esterase detection by dipstick 3+ NEGATIVE Automated urine sediment erythrocyte count by microscopy (number/high power field) NONE NRG Automated urine sediment leukocyte count by microscopy (number/high power field ) > [HPF] NRG Bacteria detection in urine sediment by light microscopy MODERATE NRG Squamous epithelial cells detection in urine sediment by light microscopy 10-25 NRG Crystals detection in urine sediment by light microscopy NONE NRG Casts detection in urine sediment by light microscopy NONE NRG Mucus detection in urine sediment by light microscopy NEGATIVE NRG Complete urinalysis with reflex to culture YES NRG Bacterial urine culture - 04/05/17 17:14 Bacterial urine culture [id number] NRG COLONY COUNT >100,000/ML NRG FTX;REPORTABLE SENSITIVITY REPORTED 04/07/17 7:25 NRG Bacterial susceptibility panel - 04/05/17 17:14 Gentamicin susceptibility test by minimum inhibitory concentration < = NRG Trimethoprim/sulfamethoxazole susceptibility test by minimum inhibitoryconcentration <= NRG Ampicillin susceptibility test by minimum inhibitory concentration > = NRG Tobramycin susceptibility test by minimum inhibitory concentration < = NRG Cefazolin susceptibility test by minimum inhibitory concentration < = NRG Ceftriaxone susceptibility test by minimum inhibitory concentration <= NRG Ampicillin/sulbactam susceptibility test by minimum inhibitory concentration 4 NRG Piperacillin/tazobactam susceptibility test by minimum inhibitory concentration <= NRG Ciprofloxacin susceptibility test by minimum inhibitory concentration <= NRG Meropenem susceptibility test by minimum inhibitory concentration < = NRG Aztreonam susceptibility test by minimum inhibitory concentration < = NRG Extended spectrum beta lactamase (ESBL) producing bacteria susceptibility test by minimum inhibitory concentration - NRG Urine drug screening test - 05/05/17 16:25 Urine phencyclidine detection by screening method NEGATIVE NEGATIVE Urine benzodiazepines detection by screening method NEGATIVE NEGATIVE Urine cocaine detection NEGATIVE NEGATIVE Urine amphetamines detection by screening method NEGATIVE NEGATIVE Urine methamphetamine detection by screening method NEGATIVE NEGATIVE Urine cannabinoids detection by screening method NEGATIVE NEGATIVE Urine opiates detection by screening method NEGATIVE NEGATIVE Urine barbiturates detection NEGATIVE NEGATIVE Screening urine tricyclic antidepressants detection NEGATIVE NEGATIVE Urine methadone detection by screening method NEGATIVE NEGATIVE Urine oxycodone detection NEGATIVE NEGATIVE Urine propoxyphene detection NEGATIVE NEGATIVE Complete urinalysis with reflex to culture - 05/05/17 16:25 Urine color determination YELLOW NRG Urine clarity determination CLEAR NRG Urine pH measurement by test strip 7 5-9 Specific gravity of urine by test strip 1.010 1.016- 1.022 Urine protein assay by test strip, semi-quantitative NEGATIVE NEGATIVE Urine glucose detection by automated test strip NEGATIVE NEGATIVE Erythrocytes detection in urine sediment by light microscopy NEGATIVE NEGATIVE Urine ketones detection by automated test strip NEGATIVE NEGATIVE Urine nitrite detection by test strip NEGATIVE NEGATIVE Urine total bilirubin detection by test strip NEGATIVE NEGATIVE Urine urobilinogen measurement by automated test strip (mass/volume) 1 mg/dL NORMAL Urine leukocyte esterase detection by dipstick 1+ NEGATIVE Automated urine sediment erythrocyte count by microscopy (number/high power field) NONE NRG Automated urine sediment leukocyte count by microscopy (number/high power field ) [HPF] NRG Bacteria detection in urine sediment by light microscopy NONE NRG Squamous epithelial cells detection in urine sediment by light microscopy 2-5 NRG Crystals detection in urine sediment by light microscopy NONE NRG Casts detection in urine sediment by light microscopy NONE NRG Mucus detection in urine sediment by light microscopy NEGATIVE NRG Complete urinalysis with reflex to culture NO NRG CBC With Differential/Platelet - 05/06/17 09:15 WBC 6.2 x10E3/uL 3.4-10.8 RBC 4.85 x10E6/uL 3.77-5.28 Hemoglobin 13.6 g/dL 11.1-15.9 Hematocrit 43.1 % 34.0-46.6 MCV 89 fL 79-97 MCH 28.0 pg 26.6-33.0 MCHC 31.6 g/dL 31.5-35.7 RDW 15.0 % 12.3-15.4 Platelets 251 x10E3/uL 150-379 Neutrophils 54 % Lymphs 38 % Monocytes 6 % Eos 2 % Basos 0 % Neutrophils (Absolute) 3.3 x10E3/uL 1.4-7.0 Lymphs (Absolute) 2.4 x10E3/uL 0.7-3.1 Monocytes(Absolute) 0.4 x10E3/uL 0.1-0.9 Eos (Absolute) 0.1 x10E3/uL 0.0-0.4 Baso (Absolute) 0.0 x10E3/uL 0.0-0.2 Immature Granulocytes 0 % Immature Grans (Abs) 0.0 x10E3/uL 0.0-0.1 Comp. Metabolic Panel (14) - 05/06/17 09:15 Glucose, Serum 163 mg/dL 65-99 BUN 24 mg/dL 8-27 Creatinine, Serum 1.24 mg/dL 0.57-1.00 eGFR If NonAfricn Am 45 mL/min/1.73 >59 eGFR If Africn Am 52 mL/min/1.73 >59 BUN/Creatinine Ratio 19 12-28 Sodium, Serum 142 mmol/L 134-144 Potassium, Serum 5.0 mmol/L 3.5-5.2 Chloride, Serum 103 mmol/L 96-106 Carbon Dioxide, Total 21 mmol/L 18-29 Calcium, Serum 8.8 mg/dL 8.7-10.3 Protein, Total, Serum 6.8 g/dL 6.0-8.5 Albumin, Serum 4.2 g/dL 3.6-4.8 Globulin, Total 2.6 g/dL 1.5-4.5 A/G Ratio 1.6 1.2-2.2 Bilirubin, Total 0.3 mg/dL 0.0-1.2 Alkaline Phosphatase, S 100 IU/L 39-117 AST (SGOT) 27 IU/L 0-40 ALT (SGPT) 32 IU/L 0-32 Lipid Panel - 05/06/17 09:15 Cholesterol, Total 129 mg/dL 100-199 Triglycerides 148 mg/dL 0-149 HDL Cholesterol 39 mg/dL >39 VLDL Cholesterol Julio Cesar 30 mg/dL 5-40 LDL Cholesterol Calc 60 mg/dL 0-99 TSH - 05/06/17 09:15 TSH 9.670 uIU/mL 0.450-4.500 Complete blood count (CBC) with automated white blood cell (WBC) differential - 08/10/17 17:10 Blood leukocytes automated count (number/volume) 6.2 10*3/uL 4.3-11.0 Blood erythrocytes automated count (number/volume) 4.80 10*6/uL 4.35-5.85 Venous blood hemoglobin measurement (mass/volume) 13.5 g/dL 11.5-16.0 Blood hematocrit (volume fraction) 42 % 35-52 Automated erythrocyte mean corpuscular volume 88 [foz_us] 80-99 Automated erythrocyte mean corpuscular hemoglobin (mass per erythrocyte) 28 pg 25-34 Automated erythrocyte mean corpuscular hemoglobin concentration measurement ( mass/volume) 32 g/dL 32-36 Automated erythrocyte distribution width ratio 14.5 % 10.0-14.5 Automated blood platelet count (count/volume) 301 10*3/uL 130-400 Automated blood platelet mean volume measurement 8.7 [foz_us] 7.4-10.4 Automated blood neutrophils/100 leukocytes 61 % 42-75 Automated blood lymphocytes/100 leukocytes 29 % 12-44 Blood monocytes/100 leukocytes 8 % 0-12 Automated blood eosinophils/100 leukocytes 2 % 0-10 Automated blood basophils/100 leukocytes 0 % 0-10 Blood neutrophils automated count (number/volume) 3.7 10*3 1.8-7.8 Blood lymphocytes automated count (number/volume) 1.8 10*3 1.0-4.0 Blood monocytes automated count (number/volume) 0.5 10*3 0.0-1.0 Automated eosinophil count 0.1 10*3/uL 0.0-0.3 Automated blood basophil count (count/volume) 0.0 10*3/uL 0.0-0.1 Comprehensive metabolic panel - 08/10/17 17:10 Serum or plasma sodium measurement (moles/volume) 142 mmol/L 135-145 Serum or plasma potassium measurement (moles/volume) 4.6 mmol/L 3.6-5.0 Serum or plasma chloride measurement (moles/volume) 105 mmol/L 98-107 Carbon dioxide 25 mmol/L 21-32 Serum or plasma anion gap determination (moles/volume) 12 mmol/L 5-14 Serum or plasma urea nitrogen measurement (mass/volume) 21 mg/dL 7-18 Serum or plasma creatinine measurement (mass/volume) 1.87 mg/dL 0.60-1.30 Serum or plasma urea nitrogen/creatinine mass ratio 11 NRG Serum or plasma creatinine measurement with calculation of estimated glomerular filtration rate 27 NRG Serum or plasma glucose measurement (mass/volume) 93 mg/dL 70-105 Serum or plasma calcium measurement (mass/volume) 9.4 mg/dL 8.5-10.1 Serum or plasma total bilirubin measurement (mass/volume) 0.8 mg/dL 0.1-1.0 Serum or plasma alkaline phosphatase measurement (enzymatic activity/volume) 74 U/L 40-136 Serum or plasma aspartate aminotransferase measurement (enzymatic activity/ volume) 25 U/L 5-34 Serum or plasma alanine aminotransferase measurement (enzymatic activity/volume ) 24 U/L 0-55 Serum or plasma protein measurement (mass/volume) 7.8 g/dL 6.4-8.2 Serum or plasma albumin measurement (mass/volume) 4.2 g/dL 3.2-4.5 TSH - 04/29/18 10:40 TSH 11.48 mIU/L 0.40-4.50 TSH - 06/09/18 10:15 TSH 7.97 mIU/L 0.40-4.50 PDM - 09 PANEL (PROFILE 1) - 07/19/18 09:40 Prescribed Drug 1 Devers(TM) NRG Creatinine 157.4 mg/dL > or=20.0 pH 6.77 4.5 - 9.0 Oxidant NEGATIVE mcg/mL <200 Amphetamines NEGATIVE ng/mL <500 medMATCH Amphetamines CONSISTENT NRG Benzodiazepines NEGATIVE ng/mL <100 medMATCH Benzodiazepines CONSISTENT NRG Marijuana Metabolite NEGATIVE ng/mL <20 medMATCH Marijuana Metab CONSISTENT NRG Cocaine Metabolite NEGATIVE ng/mL <150 medMATCH Cocaine Metab CONSISTENT NRG Opiates POSITIVE ng/mL <100 Oxycodone NEGATIVE ng/mL <100 medMATCH Oxycodone CONSISTENT NRG COMMENT NRG Codeine NEGATIVE ng/mL <50 medMATCH Codeine CONSISTENT NRG Hydrocodone 599 ng/mL <50 medMATCH Hydrocodone CONSISTENT NRG Hydromorphone 310 ng/mL <50 medMATCH Hydromorphone CONSISTENT NRG Morphine NEGATIVE ng/mL <50 medMATCH Morphine CONSISTENT NRG Norhydrocodone 935 ng/mL <50 medMATCH Norhydrocodone CONSISTENT NRG Barbiturates NEGATIVE ng/mL <300 medMATCH Barbiturates CONSISTENT NRG Methadone Metabolite NEGATIVE ng/mL <100 medMATCH Methadone Metab CONSISTENT NRG Phencyclidine NEGATIVE ng/mL <25 medMATCH Phencyclidine CONSISTENT NRG Complete blood count (CBC) with automated white blood cell (WBC) differential - 01/07/19 21:54 Blood leukocytes automated count (number/volume) 8.4 10*3/uL 4.3-11.0 Blood erythrocytes automated count (number/volume) 5.01 10*6/uL 4.35-5.85 Venous blood hemoglobin measurement (mass/volume) 14.9 g/dL 11.5-16.0 Blood hematocrit (volume fraction) 44 % 35-52 Automated erythrocyte mean corpuscular volume 88 [foz_us] 80-99 Automated erythrocyte mean corpuscular hemoglobin (mass per erythrocyte) 30 pg 25-34 Automated erythrocyte mean corpuscular hemoglobin concentration measurement ( mass/volume) 34 g/dL 32-36 Automated erythrocyte distribution width ratio 14.2 % 10.0-14.5 Automated blood platelet count (count/volume) 239 10*3/uL 130-400 Automated blood platelet mean volume measurement 9.5 [foz_us] 7.4-10.4 Automated blood neutrophils/100 leukocytes 89 % 42-75 Automated blood lymphocytes/100 leukocytes 6 % 12-44 Blood monocytes/100 leukocytes 5 % 0-12 Automated blood eosinophils/100 leukocytes 0 % 0-10 Automated blood basophils/100 leukocytes 0 % 0-10 Blood neutrophils automated count (number/volume) 7.5 10*3 1.8-7.8 Blood lymphocytes automated count (number/volume) 0.5 10*3 1.0-4.0 Blood monocytes automated count (number/volume) 0.4 10*3 0.0-1.0 Automated eosinophil count 0.0 10*3/uL 0.0-0.3 Automated blood basophil count (count/volume) 0.0 10*3/uL 0.0-0.1 Comprehensive metabolic panel - 01/07/19 21:54 Serum or plasma sodium measurement (moles/volume) 135 mmol/L 135-145 Serum or plasma potassium measurement (moles/volume) 4.8 mmol/L 3.6-5.0 Serum or plasma chloride measurement (moles/volume) 100 mmol/L 98-107 Carbon dioxide 20 mmol/L 21-32 Serum or plasma anion gap determination (moles/volume) 15 mmol/L 5-14 Serum or plasma urea nitrogen measurement (mass/volume) 17 mg/dL 7-18 Serum or plasma creatinine measurement (mass/volume) 1.23 mg/dL 0.60-1.30 Serum or plasma urea nitrogen/creatinine mass ratio 14 NRG Serum or plasma creatinine measurement with calculation of estimated glomerular filtration rate 43 NRG Serum or plasma glucose measurement (mass/volume) 424 mg/dL 70-105 Serum or plasma calcium measurement (mass/volume) 9.4 mg/dL 8.5-10.1 Serum or plasma total bilirubin measurement (mass/volume) 0.6 mg/dL 0.1-1.0 Serum or plasma alkaline phosphatase measurement (enzymatic activity/volume) 107 U/L 40-136 Serum or plasma aspartate aminotransferase measurement (enzymatic activity/ volume) 93 U/L 5-34 Serum or plasma alanine aminotransferase measurement (enzymatic activity/volume ) 92 U/L 0-55 Serum or plasma protein measurement (mass/volume) 7.3 g/dL 6.4-8.2 Serum or plasma albumin measurement (mass/volume) 4.3 g/dL 3.2-4.5 CALCIUM CORRECTED 9.2 mg/dL 8.5-10.1 Blood manual differential performed detection - 01/07/19 21:54 Blood monocytes/100 leukocytes 1 % NRG Manual blood segmented neutrophils/100 leukocytes 88 % NRG Blood band neutrophils/100 leukocytes 1 % NRG Manual blood lymphocytes/100 leukocytes 3 % NRG Manual eosinophils/100 leukocytes in nose 2 % NRG Manual blood basophils/100 leukocytes 2 % NRG Blood lymphocytes variant/100 leukocytes 2 % NRG Blood erythrocyte morphology finding identification NORMAL NRG Manual blood metamyelocytes/100 leukocytes 1 % NRG Blood lactic acid measurement (moles/volume) - 01/07/19 21:54 Blood lactic acid measurement (moles/volume) 3.18 mmol/L 0.50-2.00 Influenza virus A and B antigen detection - 01/07/19 22:01 FLU RESULT NEGATIVE FOR INFLUENZA A AND B ANTIGENS BY IA NRG Complete urinalysis with reflex to culture - 01/07/19 22:34 Urine color determination YELLOW NRG Urine clarity determination VERY CLOUDY NRG Urine pH measurement by test strip 5 5-9 Specific gravity of urine by test strip 1.020 1.016- 1.022 Urine protein assay by test strip, semi-quantitative 2+ NEGATIVE Urine glucose detection by automated test strip 4+ NEGATIVE Erythrocytes detection in urine sediment by light microscopy 3+ NEGATIVE Urine ketones detection by automated test strip NEGATIVE NEGATIVE Urine nitrite detection by test strip NEGATIVE NEGATIVE Urine total bilirubin detection by test strip NEGATIVE NEGATIVE Urine urobilinogen measurement by automated test strip (mass/volume) NORMAL NORMAL Urine leukocyte esterase detection by dipstick 1+ NEGATIVE Automated urine sediment erythrocyte count by microscopy (number/high power field) [HPF] NRG Automated urine sediment leukocyte count by microscopy (number/high power field ) [HPF] NRG Bacteria detection in urine sediment by light microscopy LARGE NRG Squamous epithelial cells detection in urine sediment by light microscopy 0-2 NRG Crystals detection in urine sediment by light microscopy PRESENT NRG Casts detection in urine sediment by light microscopy NONE NRG Mucus detection in urine sediment by light microscopy NEGATIVE NRG Complete urinalysis with reflex to culture YES NRG Yeast detection in urine sediment by light microscopy FEW NRG Calcium oxalate crystals detection in urine sediment by light microscopy RARE NRG Encounters ACCT No. Visit Date/Time Discharge Status Pt. Type Provider Facility Loc./Unit Complaint [id number] 03/04/2015 10:57:00 03/04/2015 23:59:59 CLS Outpatient NALINI GOMEZ APRN [id number] 02/26/2015 09:57:00 02/26/2015 23:59:59 CLS Outpatient SHAINA CAN APRN [id number] 02/26/2015 09:57:00 02/26/2015 23:59:59 CLS Outpatient SHAINA CAN APRN [id number] 02/01/2015 11:17:00 02/01/2015 23:59:59 CLS Outpatient NALINI GOMEZ APRN [id number] 12/12/2014 11:46:00 12/12/2014 23:59:59 CLS Outpatient SHIN LUI APRN [id number] 12/12/2014 11:46:00 12/12/2014 23:59:59 CLS Outpatient SHIN LIU APRN [id number] 06/20/2014 16:18:00 06/20/2014 23:59:59 CLS Outpatient NALINI GOMEZ APRN [id number] 06/20/2014 16:18:00 06/20/2014 23:59:59 CLS Outpatient NALINI GOMEZ APRN [id number] 04/26/2014 09:22:00 04/26/2014 23:59:59 CLS Outpatient BUFFY PALOMINO MD [id number] 03/16/2014 11:27:00 03/16/2014 23:59:59 CLS Outpatient NALINI GOMEZ APRN [id number] 02/13/2014 12:45:00 02/13/2014 23:59:59 CLS Outpatient BUFFY PALOMINO MD [id number] 01/29/2014 08:53:00 01/29/2014 23:59:59 CLS Outpatient NALINI GOMEZ APRN [id number] 10/03/2013 12:40:00 10/03/2013 23:59:59 CLS Outpatient NALINI GOMEZ APRN [id number] 10/03/2013 12:40:00 10/03/2013 23:59:59 CLS Outpatient NALINI GOMEZ APRN [id number] 09/29/2013 15:00:00 09/29/2013 23:59:59 CLS Outpatient NALINI GOMEZ APRN [id number] 08/29/2013 12:41:00 08/29/2013 23:59:59 CLS Outpatient BUFFY PALOMINO MD [id number] 02/14/2013 14:47:00 02/14/2013 23:59:59 CLS Outpatient [id number] 02/10/2013 09:27:00 02/10/2013 23:59:59 CLS Outpatient NALINI GOMEZ APRN [id number] 11/25/2012 14:32:00 11/25/2012 23:59:59 CLS Outpatient NALINI GOMEZ APRN [id number] 09/16/2012 09:48:00 09/16/2012 23:59:59 CLS Outpatient KUSHAL DUPREE DO [id number] 09/16/2012 09:48:00 09/16/2012 23:59:59 CLS Outpatient [id number] 07/11/2013 14:44:00 Document Registration [id number] 06/23/2013 13:40:00 Document Registration [id number] 05/23/2013 16:19:00 Document Registration [id number] 03/30/2013 10:00:00 Document Registration [id number] 03/30/2013 10:00:00 Document Registration [id number] 03/14/2013 15:24:00 Document Registration [id number] 03/14/2013 15:24:00 Document Registration [id number] 03/02/2013 12:41:00 Document Registration [id number] 01/05/2019 11:00:00 ACT Outpatient NALINI GOMEZ APRN [facility] [id number] 07/19/2018 09:40:00 Document Registration [id number] 06/09/2018 11:00:00 Document Registration [id number] 04/29/2018 10:20:00 Document Registration [id number] 07/12/2015 03:14:56 ACT Document Registration [id number] 12/23/2017 12:32:00 12/23/2017 23:59:59 CLS Outpatient LELIA PINEDA MD [facility] CARD CAD [id number] 08/10/2017 15:29:00 08/10/2017 18:48:00 DIS Emergency DEEJAY FELIPE APRN [facility] ER LEFT FOOT INJ;FALL [id number] 07/29/2017 13:24:00 07/29/2017 23:59:59 CLS Outpatient LELIA PINEDA MD [facility] LAB I25.10,I50.9,R07.89,I10, E78.2,E11.9 [id number] 05/05/2017 15:57:00 05/05/2017 17:51:00 DIS Emergency VU CASTELLON DO [facility] ER BACK PAIN [id number] 04/05/2017 15:51:00 04/05/2017 18:24:00 DIS Emergency DEEJAY FELIPE APRN [facility] ER L HIP/THIGH PAIN [id number] 11/30/2016 07:51:00 11/30/2016 23:59:59 CLS Outpatient LELIA PINEDA MD [facility] CARD CAD,CHEST PAIN SYNDROME, HTN,PUD [id number] 11/26/2016 13:05:00 11/26/2016 23:59:59 CLS Outpatient LELIA PINEDA MD [facility] CARD CAD,PUD,CHEST PAIN SYNDROME [id number] 07/10/2016 08:28:00 07/10/2016 23:59:59 CLS Outpatient LELIA PINEDA MD [facility] LAB HLP,HTN,CAD,CHEST PAIN [id number] 04/14/2016 09:35:00 04/14/2016 10:35:00 DIS Emergency JEANNIE MARTINEZ MD [facility] ER SUTURE REMOVAL [id number] 04/05/2016 18:04:00 04/05/2016 22:31:00 DIS Emergency PANCHO MARQUIS [facility] ER LACERATION ON PINKY FINGER [id number] 12/17/2015 10:36:00 12/17/2015 23:59:59 CLS Outpatient FLOR MARVIN MD [facility] CARD INFECTION OF TOTAL KNEE REPLACEMENT [id number] 12/10/2015 11:07:00 12/10/2015 23:59:59 CLS Outpatient FLOR MARVIN MD [facility] LAB INFECTION OF TOTAL KNEE REPLACEMENT [id number] 07/11/2015 07:17:00 07/11/2015 23:59:59 CLS Outpatient CARRIE FORTUNE [facility] LAB HLP [id number] 05/15/2015 06:44:00 05/16/2015 14:20:00 DIS Outpatient LELIA PINEDA MD [facility] CATH ABNORMAL STRESS, CAD,HTN ,HLP [id number] 05/08/2015 07:26:00 05/08/2015 23:59:59 CLS Outpatient LELIA PINEDA MD [facility] CARD CAD,CP,HTN,HLP [id number] 04/05/2015 07:47:00 04/05/2015 23:59:59 CLS Outpatient MIRAIM DANIEL, LELIA Brewer [facility] CARD CAD,CP,HTN,HLP [id number] 12/31/2014 10:41:00 12/31/2014 23:59:59 CLS Outpatient ELIZABETH DANIEL, LISSA Tomlinson [facility] LAB DIABETES [id number] 07/25/2014 08:10:00 07/25/2014 23:59:59 CLS Outpatient DC CALHOUN MD [facility] RAD RIGHT RENAL MASS [id number] 07/17/2014 14:27:00 07/17/2014 23:59:59 CLS Outpatient DC CALHOUN MD [facility] LAB RT RENAL MASS [id number] 05/21/2014 18:14:00 05/27/2014 11:15:00 DIS Inpatient BUFFY PALOMINO MD [facility] 4TH PYELONEPHRITIS,ABD PAIN, NAUSEA/VOMITING [id number] 03/29/2014 08:10:00 03/31/2014 13:15:00 DIS Inpatient BLUTERFLOR GARCIA DO [facility] SURGICAL RIGHT KNEE PAIN; FAILED DEVICE;INSTABILITY [id number] 03/20/2014 06:00:00 03/21/2014 12:57:00 DIS Outpatient DC CALHOUN MD [facility] SDC OVERACTIVE BLADDER [id number] 03/19/2014 11:53:00 03/19/2014 23:59:59 CLS Outpatient BLUTERFLOR GARCIA DO [facility] PREOP RIGHT KNEE PAIN; FAILED DEVICE;INSTABILITY [id number] 03/14/2014 11:58:00 03/14/2014 23:59:59 CLS Outpatient DC CALHOUN MD [facility] PREOP OVERACTIVE BLADDER [id number] 02/27/2014 10:33:00 02/27/2014 23:59:59 CLS Outpatient BLUTERFLOR GARCIA DO [facility] LAB RT KNEE PAIN/PRE OP [id number] 01/20/2014 14:01:00 01/20/2014 16:45:00 DIS Emergency DEEJAY FELIPE APRN [facility] ER COUGH, CONGESTION [id number] 11/02/2013 10:42:00 11/02/2013 15:00:00 DIS Emergency PANCHO MARQUIS [facility] ER MULTIPLE COMPLAINTS [id number] 09/07/2013 09:45:00 09/13/2013 14:16:00 DIS Outpatient NALINI GOMEZ [facility] REHAB VERTIGO; LABYRHINITIS [id number] 09/04/2013 14:31:00 09/04/2013 18:00:00 DIS Emergency PANCHO MARQUIS [facility] ER SLURRED SPEECH, DIZZINESS [id number] 08/23/2013 07:17:00 08/23/2013 19:48:00 DIS Outpatient LELIA PINEDA MD [facility] CATH CP,CAD,HTN,HLP [id number] 06/05/2013 15:24:00 06/05/2013 19:30:00 DIS Emergency RAVINDER DO VU K [facility] ER DIZZINESS,NAUSEA [id number] 03/28/2013 11:55:00 03/28/2013 23:59:59 CLS Outpatient LELIA PINEDA MD [facility] RAD CAD [id number] 03/24/2013 06:06:00 03/24/2013 10:45:00 DIS Outpatient DC CALHOUN MD [facility] SDC INCONTINENCE [id number] 01/07/2019 22:07:00 Document Registration [id number] 04/05/2015 07:46:00 Document Registration [id number] 04/05/2015 07:46:00 Document Registration [id number] 04/05/2015 07:46:00 Document Registration [id number] 04/05/2015 07:46:00 Document Registration [id number] 04/05/2015 07:46:00 Document Registration [id number] 02/05/2015 10:56:00 Document Registration [id number] 03/14/2013 14:21:00 Document Registration [id number] 03/14/2013 14:08:00 Document Registration [id number] 09/01/2012 10:29:00 Document Registration [id number] 07/11/2012 05:42:00 Document Registration [id number] 07/07/2012 11:37:00 Document Registration [id number] 02/03/2012 05:32:00 Document Registration [id number] 01/27/2012 05:31:00 Document Registration [id number] 01/19/2012 08:45:00 Document Registration [id number] 12/13/2011 15:45:00 Document Registration [id number] 08/03/2011 15:14:00 Document Registration [id number] 07/01/2011 18:27:00 Document Registration [id number] 05/11/2011 13:44:00 Document Registration [id number] 05/06/2011 08:48:00 Document Registration [id number] 05/05/2011 11:00:00 Document Registration [id number] 03/13/2011 09:36:00 Document Registration [id number] 05/07/2017 08:42:00 Document Registration
[2019-01-08] MEDS ORDERED: NS IV 1000 ML 1,000 ML ONE (01:14)
--- NOTE | 2019-01-08 01:39 | NUR ---
Patient arrived to ICU room 1 at this time via bed. Bedside report from Janene DILL. Fluid bolus initiated. Patient to get additional 1,820ml NS as per Sepsis protocol. 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
[2019-01-08] MEDS ORDERED: ONDANSETRON 4 MG/2 ML (SDV) Z0FRAN IV PRN (02:15)
[2019-01-08] MEDS ORDERED: PROMETHAZINE 6.25 MG/5 ML SYRUP (PHENERGAN) 5 ML UDC PO PRN (02:15)
[2019-01-08] MEDS ORDERED: NS IV ONE (02:15)
--- NOTE | 2019-01-08 02:24 | NUR ---
Text to Dr Galdamez regarding T.O. to Janene DILL to initiate Sepsis protocol, questioning any additional orders for antibiotics other that the Levaquin already given in ED. No new orders at this time.
[2019-01-08] MEDS: NS IV 1000 ML 1,000 ML IV SCH ×7 (02:32→23:57)
[2019-01-08] MEDS: NOREPINEPHRINE 4 MG in NS (IVPB) 250 ML IV SCH ×2 (02:32→14:28)
--- NOTE | 2019-01-08 02:45 | NUR ---
ZIONBERT admitted to room CU1-1, with an admitting diagnosis of Suspected Pneumonia,Hypoxia, Uncontrolled IDDM, Asthma,UTI, Nausea and vomiting, on 01/07/19 from 4th floor room 410, accompanied by FUENTES Samuel.BERT DONOVAN introduced to surroundings, call light, bed controls, phone, TV, temperature control, lights, meal times, smoking policy, visitor policy, side rail policy, bathrooms and showers. Patient Rights given to patient in the handbook. BERT DONOVAN verbalizes understanding that [facility] is not responsible for the loss or damage to any personal effects or valuables that are kept in the patients possession during their hospitalization. The following Patient Care Plans were discussed with the patient: Discharge Planning, sepsis,UTI, and pain management. BERT DONOVAN verbalizes understanding of Interdisciplinary Patient Education. Patient and/or family were informed about the Rapid Response Team and its purpose.
[2019-01-08 02:52] LABS: BASOPHILS % (AUTO) 0 % (0-10); EOSINOPHILS % (AUTO) 0 % (0-10); HEMATOCRIT 39 % (35-52); HEMOGLOBIN 12.9 G/DL (11.5-16.0); LYMPHOCYTES # (AUTO) 0.4 X 10^3 (1.0-4.0); LYMPHOCYTES % (AUTO) 5 % (12-44); MEAN CORPUSCULAR HEMOGLOBIN 29 PG (25-34); MEAN CORPUSCULAR HGB CONC 33 G/DL (32-36); MEAN CORPUSCULAR VOLUME 90 FL (80-99); MEAN PLATELET VOLUME 9.5 FL (7.4-10.4); MONOCYTES # (AUTO) 0.3 X 10^3 (0.0-1.0); MONOCYTES % (AUTO) 5 % (0-12); NEUTROPHILS # (AUTO) 6.9 X 10^3 (1.8-7.8); NEUTROPHILS % (AUTO) 90 % (42-75); PLATELET COUNT 218 10^3/uL (130-400); RED CELL DISTRIBUTION WIDTH 14.1 % (10.0-14.5); WHITE BLOOD COUNT 7.6 10^3/uL (4.3-11.0)
[2019-01-08 03:35] LABS: ALBUMIN 3.7 GM/DL (3.2-4.5); BILIRUBIN,TOTAL 0.5 MG/DL (0.1-1.0); CREATININE SERUM 1.05 MG/DL (0.60-1.30); MAGNESIUM 1.4 MG/DL (1.8-2.4); POTASSIUM 4.7 MMOL/L (3.6-5.0); TOTAL PROTEIN 6.2 GM/DL (6.4-8.2)
--- NOTE | 2019-01-08 04:05 | NUR ---
Spoke to Dr Miranda via telephone at this time. Discussed patient labs and updated on patient condition. Order to treat glucose at this time. Additional orders for EKG and additional lab work.
[2019-01-08] MEDS: inSUlin ASPART (NovoLOG) 1 UNIT/0.01 ML (CHARGE PER UNIT) SC SCH ×5 (04:23→22:15)
[2019-01-08] MEDS ORDERED: MAGNESIUM 1 GM/100 ML IVPB 100 ML IV ONE ×2 (04:29→04:30)
--- NOTE | 2019-01-08 04:31 | Pulmonary Consultation ---
History of Present Illness History of Present Illness Date of Consultation 01/08/19 04:26 Date of Admission Allergies and Home Medications Allergies Coded Allergies: Penicillins (Unverified Allergy, Unknown, ANAPHALYTIC SHOCK, 03/20/14) ceftriaxone (Unverified Allergy, Unknown, 02/03/13) ceftriaxone sodium (Verified Allergy, Unknown, 03/20/14) Home Medications Albuterol 8.5 Gm Hfa.aer.ad, 1-2 PUFF IH Q4H PRN for SHORTNESS OF BREATH, ( Reported) Albuterol/Ipratropium 3 Ml Nebu, 3 ML NEB Q4H PRN for SHORTNESS OF BREATH, ( Reported) Aspirin 81 Mg Tablet.dr, 81 MG PO DAILY, (Reported) Cetirizine Hcl 10 Mg Capsule, 10 MG PO DAILY, (Reported) Citalopram Hydrobromide 10 Mg Tablet, 10 MG PO DAILY, (Reported) Fesoterodine Fumarate 8 Mg Tab.sr.24h, 8 MG PO DAILY, (Reported) Fluticasone/Salmeterol 1 Disk Inhp, 1 PUFF IH BID, (Reported) 1 PUFF Hydrocodone Bit/Acetaminophen 1 Each Tablet, 1 TAB PO EVERY 4-6 HOURS PRN for PAIN, (Reported) Levothyroxine Sodium 200 Mcg Tablet, 200 MCG PO DAILY, (Reported) Losartan Potassium 50 Mg Tablet, 50 MG PO DAILY, (Reported) Meclizine HCl 25 Mg Tablet, 25 MG PO TID PRN for DIZZINESS Prescribed by: DEEJAY FELIPE on 08/10/17 1725 Mirabegron 50 Mg Tab.er.24h, 50 MG PO DAILY, (Reported) Montelukast Sodium 10 Mg Tablet, 10 MG PO HS, (Reported) Ranitidine Hcl 150 Mg Tablet, 150 MG PO BID, (Reported) Ropinirole Hcl 4 Mg Tablet, 4 MG PO DAILY, (Reported) Rosuvastatin Calcium 40 Mg Tablet, 40 MG PO DAILY, (Reported) Triamcinolone Acet 15 Gm Cr, 0 TOP BID, (Reported) APPLY SPRARINGLY TO AFFECTED AREA(S) Past Yryfvar-Pnwcsg-Mmmexs Hx Patient Social History Alcohol Use: Denies Use Recreational Drug Use: No Smoking Status: Former Smoker Type Used: Cigarettes Former Smoker, Quit: Jan 07, 1988 2nd Hand Smoke Exposure: No Recent Foreign Travel: No Contact w/Someone Who Travel: No Recent Infectious Disease Expo: No Recent Hopitalizations: Yes (HYST,ANTONIA,CABG,APPY,BIAT.TKR,BREAST BX,FOOT SURG. 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 Genitourinary: No Gastrointestinal: Yes Ulcer Musculoskeletal: Yes (BILAT KNEE REPLACEMENT, BONE SPUR RIGHT HEEL) Osteoporosis, Arthritis, Chronic Back Pain Endocrine: Yes Hypothyroidsim, Diabetes, Non-Insulin dep Are Your Blood Sugars Over 250: Yes Cataract, Eye Injury Loss of Vision: Left Cancer: No Psychosocial: Yes Anxiety, Depression Integumentary: No Blood Disorders: No Family Medical History Cancer G8 SISTER Cataract 19 MOTHER Family history: Arthritis 19 MOTHER G8 SISTER Family history: Diabetes mellitus 19 FATHER 19 MOTHER G8 BROTHER G8 SISTER Family history: Hypertension 19 FATHER 19 MOTHER Family history: Thyroid disorder 19 MOTHER Hearing loss G8 BROTHER Myocardial infarction 19 FATHER 19 MOTHER Parkinson's disease 19 MOTHER No Family History of: Abdominal aortic aneurysm Alcoholism Family history: Alzheimer's disease Family history: Asthma Family history: Gastrointestinal disease Hereditary disease History of - anemia History of - respiratory disease Kidney disease Prostate cancer Psychotic disorder Seizure disorder Stroke Sepsis Event Evaluation Height, Weight, BMI Height: 5'4.00" Weight: 208lbs. 0.0oz. 94.035075hh; 35.7 BMI Method:Stated Exam Exam Vital Signs Date Time Temp Pulse Resp B/P (MAP) Pulse Ox O2 Delivery O2 Flow Rate FiO2 01/08/19 03:44 96 Nasal Cannula 2.00 01/08/19 02:45 84 22 113/52 (72) 96 Nasal Cannula 2.00 01/08/19 02:39 Nasal Cannula 2.00 01/08/19 02:15 82 27 103/46 (65) 96 Nasal Cannula 2.00 01/08/19 02:00 91 42 133/79 (97) 93 Nasal Cannula 2.00 01/08/19 01:45 87 28 118/67 (84) 94 Nasal Cannula 2.00 01/08/19 01:44 100 01/08/19 01:40 98.6 94 22 109/65 (80) 94 Nasal Cannula 2.00 01/08/19 00:55 99.6 96 22 110/67 (81) 96 Nasal Cannula 2.00 01/07/19 21:37 95 Nasal Cannula 2.00 100 01/07/19 21:37 Nasal Cannula 2.00 100.00 01/07/19 21:37 99.6 100 22 115/76 (89) 96 Nasal Cannula 2.00 I & O 01/08/19 07:00 Intake Total 4280.11 ml Balance 4280.11 ml Height & Weight Height: 5'4.00" Weight: 208lbs. 0.0oz. 94.127008rj; 35.7 BMI Method:Stated Capillary Refill: Less Than 3 Seconds Results Lab Laboratory Tests 01/07/19 21:54 01/08/19 02:30 Assessment/Plan Assessment/Plan UTI -Levaquin Pneumonia Nausea/vomiting -check amylase and lipase -Continue IVF Metabolic lactic acidosis -Continue IVF -Velásquez cultures Elevated LFTs- improving -Monitor Hypomag -replace NIDDM- uncontrolled -Check A1C DOROTHEA ALONSO DO Jan 08, 2019 04:31
[2019-01-08] MEDS: MAGNESIUM 1 GM/100 ML IVPB 100 ML IV SCH ×2 (04:35→05:35)
[2019-01-08 04:43] LABS: AMYLASE 31 U/L (25-125); LIPASE 36 U/L (8-78)
[2019-01-08] MEDS ORDERED: KCL 20 MEQ TAB (K-DUR) PO SCH (06:00)
[2019-01-08] MEDS ORDERED: MAGNESIUM 1 GM/100 ML IVPB 100 ML IV SCH (06:00)
[2019-01-08] MEDS ORDERED: POTASSIUM CL 10MEQ/50ML IVPB 50 ML IV SCH (06:00)
[2019-01-08] MEDS ORDERED: methylPREDNISolone 40 MG/ML (Solu-MEDROL) VIAL ONE (06:20)
[2019-01-08] MEDS: BENZONATATE 100 MG (TESSALON) CAPSULE PO PRN ×3 (06:28→14:27)
[2019-01-08] MEDS: methylPREDNISolone 40 MG/ML (Solu-MEDROL) VIAL IV SCH ×4 (06:28→23:57)
--- NOTE | 2019-01-08 06:48 | Diagnostic Imaging Report ---
INDICATION: Cough and congestion x2 days. TECHNIQUE: Single view chest 10:24 PM. CORRELATION STUDY: 05/15/2015 FINDINGS: Poststernotomy changes. Heart size enlarged with prominent appearance about superior left heart margin, stable. Vasculature slightly prominent. Mildly prominent interstitial markings. No focal infiltrate. IMPRESSION: 1. Cardiac enlargement with borderline vasculature. Dictated by: Dictated on workstation # [id number]
--- NOTE | 2019-01-08 07:17 | ED Cough/URI ---
General Chief Complaint: Cough/Cold/Flu Symptoms Stated Complaint: SUSPECTED PNEUMONIA,HYPOXIA,NASUEA,VOMITING,UTI Nursing Triage Note: Patient advises she has not been feeling well for several days she advises that she has had a cough x 2 days accompanied by vomiting. Sepsis Screen: No Definite Risk Source: patient, EMS History of Present Illness Date Seen by Provider: Jan 07, 2019 Time Seen by Provider: 21:40 Initial Comments PT ARRIVES VIA EMS FROM HOME C/O PRODUCTIVE COUGH FOR 2 WEEKS--MINIMALLY PRODUCTIVE WITH COLORED SPUTUM-- WORSE FOR SEVERAL DAYS C/O SUBJECTIVE FEVER C/O VOMITING A COUPLE OF TIMES--MOSTLY DUE TO COUGHING C/O SHORTNESS OF BREATH. SEEN AT [facility] BY FELICITA GOMEZ ON 12/26/18 FOR THIS PROBLEM. NO TESTS AND NO RX GIVEN, PER PT PT STATES SHE HAS ASTHMA/COPD--USED HER ADVAIR INHALER X 1 THIS AM, HAS NOT USED HER OTHER INHALER TODAY OR RECENTLY PT QUIT SMOKING IN 1987 PT HAS NEVER BEEN ON HOME O2 PCP:[facility]-- FELICITA GOMEZ COUNTRY SALES MANAGER : DR. PINEDA Allergies and Home Medications Allergies Coded Allergies: Penicillins (Unverified Allergy, Unknown, ANAPHALYTIC SHOCK, 03/20/14) ceftriaxone (Unverified Allergy, Unknown, 02/03/13) ceftriaxone sodium (Verified Allergy, Unknown, 03/20/14) Home Medications Albuterol 8.5 Gm Hfa.aer.ad, 1-2 PUFF IH Q4H PRN for SHORTNESS OF BREATH, ( Reported) Albuterol/Ipratropium 3 Ml Nebu, 3 ML NEB Q4H PRN for SHORTNESS OF BREATH, ( Reported) Aspirin 81 Mg Tablet.dr, 81 MG PO DAILY, (Reported) Cetirizine Hcl 10 Mg Capsule, 10 MG PO DAILY, (Reported) Citalopram Hydrobromide 10 Mg Tablet, 10 MG PO DAILY, (Reported) Fesoterodine Fumarate 8 Mg Tab.sr.24h, 8 MG PO DAILY, (Reported) Fluticasone/Salmeterol 1 Disk Inhp, 1 PUFF IH BID, (Reported) 1 PUFF Hydrocodone Bit/Acetaminophen 1 Each Tablet, 1 TAB PO EVERY 4-6 HOURS PRN for PAIN, (Reported) Levothyroxine Sodium 200 Mcg Tablet, 200 MCG PO DAILY, (Reported) Losartan Potassium 50 Mg Tablet, 50 MG PO DAILY, (Reported) Meclizine HCl 25 Mg Tablet, 25 MG PO TID PRN for DIZZINESS Prescribed by: DEEJAY FELIPE on 08/10/17 1725 Mirabegron 50 Mg Tab.er.24h, 50 MG PO DAILY, (Reported) Montelukast Sodium 10 Mg Tablet, 10 MG PO HS, (Reported) Ranitidine Hcl 150 Mg Tablet, 150 MG PO BID, (Reported) Ropinirole Hcl 4 Mg Tablet, 4 MG PO DAILY, (Reported) Rosuvastatin Calcium 40 Mg Tablet, 40 MG PO DAILY, (Reported) Triamcinolone Acet 15 Gm Cr, 0 TOP BID, (Reported) APPLY SPRARINGLY TO AFFECTED AREA(S) Patient Home Medication List Home Medication List Reviewed: Yes Review of Systems Review of Systems Constitutional: see HPI, fever, weakness EENTM: nose congestion Respiratory: see HPI, cough, phlegm, short of breath, wheezing Cardiovascular: no symptoms reported; No chest pain Gastrointestinal: see HPI; No abdominal pain; loss of appetite, vomiting Genitourinary: no symptoms reported Musculoskeletal: no symptoms reported Skin: no symptoms reported Psychiatric/Neurological: No Symptoms Reported Hematologic/Lymphatic: No Symptoms Reported Immunological/Allergic: no symptoms reported Past Umlruec-Fwivya-Qnhyig Hx Patient Social History Alcohol Use: Denies Use Recreational Drug Use: No Smoking Status: Former Smoker Type Used: Cigarettes Former Smoker, Quit: Jan 07, 1988 2nd Hand Smoke Exposure: No Recent Foreign Travel: No Contact w/Someone Who Travel: No Recent Infectious Disease Expo: No Recent Hopitalizations: Yes (HYST,ANTONIA,CABG,APPY,BIAT.TKR,BREAST BX,FOOT SURG. ,CATARACTS) Immunizations Up To Date Tetanus Booster (TDap): Unknown Date of Pneumonia Vaccine: March 24, 2012 Date of Influenza Vaccine: Aug 21, 2013 Past Medical History Surgeries: Yes (LT EYE R/T TRAUMA FROM A STAPLE ENTERING EYE; CARDIAC CATHS-- STENT X1 AND 2 VESSEL CABG; BILATERAL TOTAL KNEE REPLACEMENT WITH SURGERIES DUE TO INFECTION; HYST/BSO) Appendectomy, Cardiac, CABG, Coronary Stent, Eye Surgery, Gallbladder, Hysterectomy, Joint Replacement, Oophorectomy, Orthopedic Respiratory: Yes Asthma, COPD Currently Using CPAP: No Currently Using BIPAP: No Cardiac: Yes (S/P 2 VESSEL CABG AND STENT X 1; CHRONIC CHEST PAIN ) Coronary Artery Disease, High Cholesterol, Hypertension Neurological: No : No Reproductive Disorders: No 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: Hysterectomy Genitourinary: Yes Kidney Infection, Bladder Infection, UTI-Chronic Gastrointestinal: Yes Ulcer Musculoskeletal: Yes (BILAT KNEE REPLACEMENT, BONE SPUR RIGHT HEEL) Osteoporosis, Arthritis, Chronic Back Pain Endocrine: Yes Hypothyroidsim, Diabetes, Non-Insulin dep Are Your Blood Sugars Over 250: Yes HEENT: Yes Cataract, Eye Injury Loss of Vision: Left Cancer: No Psychosocial: Yes Anxiety, Depression Integumentary: No Blood Disorders: No Family Medical History Cancer G8 SISTER Cataract 19 MOTHER Family history: Arthritis 19 MOTHER G8 SISTER Family history: Diabetes mellitus 19 FATHER 19 MOTHER G8 BROTHER G8 SISTER Family history: Hypertension 19 FATHER 19 MOTHER Family history: Thyroid disorder 19 MOTHER Hearing loss G8 BROTHER Myocardial infarction 19 FATHER 19 MOTHER Parkinson's disease 19 MOTHER No Family History of: Abdominal aortic aneurysm Alcoholism Family history: Alzheimer's disease Family history: Asthma Family history: Gastrointestinal disease Hereditary disease History of - anemia History of - respiratory disease Kidney disease Prostate cancer Psychotic disorder Seizure disorder Stroke Physical Exam Vital Signs - First Documented 01/07/19 21:37 FiO2 100 Capillary Refill : Less Than 3 Seconds Height: 5'4.00" Weight: 212lbs. 0.0oz. 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 nml as tested, no motor/sensory deficits, alert, normal mood/affect, oriented x 3 Skin: normal color, warm/dry Focused Exam Lactate Level 01/07/19 21:54: Lactic Acid Level 3.18*H Lactic Acid Level Laboratory Tests Test 01/07/19 21:54 Lactic Acid Level 3.18 MMOL/L (0.50-2.00) *H Progress/Results/Core Measures Suspected Sepsis Recent Fever Within 48 Hours: No Infection Criteria Present: Documented Infection New/Unexplained Altered Menta: No Sepsis Screen: No Definite Risk SIRS Temperature:98.4 Pulse: 85 Respiratory Rate: 27 Laboratory Tests 01/07/19 21:54: White Blood Count 8.4 Blood Pressure 115 /62 Mean: 79 01/07/19 21:54: Lactic Acid Level 3.18*H Laboratory Tests 01/07/19 21:54: Creatinine 1.23, Platelet Count 239, Total Bilirubin 0.6 Results/Orders Lab Results Laboratory Tests Test 01/07/19 21:54 01/07/19 22:34 Range/Units White Blood Count 8.4 4.3-11.0 10^3/uL Red Blood Count 5.01 4.35-5.85 10^6/uL Hemoglobin 14.9 11.5-16.0 G/DL Hematocrit 44 35-52 % Mean Corpuscular Volume 88 80-99 FL Mean Corpuscular Hemoglobin 30 25-34 PG Mean Corpuscular Hemoglobin Concent 34 32-36 G/DL Red Cell Distribution Width 14.2 10.0-14.5 % Platelet Count 239 130-400 10^3/uL Mean Platelet Volume 9.5 7.4-10.4 FL Neutrophils (%) (Auto) 89 H 42-75 % Lymphocytes (%) (Auto) 6 L 12-44 % Monocytes (%) (Auto) 5 0-12 % Eosinophils (%) (Auto) 0 0-10 % Basophils (%) (Auto) 0 0-10 % Neutrophils # (Auto) 7.5 1.8-7.8 X 10^3 Lymphocytes # (Auto) 0.5 L 1.0-4.0 X 10^3 Monocytes # (Auto) 0.4 0.0-1.0 X 10^3 Eosinophils # (Auto) 0.0 0.0-0.3 10^3/uL Basophils # (Auto) 0.0 0.0-0.1 10^3/uL Neutrophils % (Manual) 88 % Lymphocytes % (Manual) 3 % Monocytes % (Manual) 1 % Eosinophils % (Manual) 2 % Basophils % (Manual) 2 % Metamyelocytes % 1 % Band Neutrophils 1 % Reactive Lymphocytes 2 % Blood Morphology Comment NORMAL Sodium Level 135 135-145 MMOL/L Potassium Level 4.8 3.6-5.0 MMOL/L Chloride Level 100 98-107 MMOL/L Carbon Dioxide Level 20 L 21-32 MMOL/L Anion Gap 15 H 5-14 MMOL/L Blood Urea Nitrogen 17 7-18 MG/DL Creatinine 1.23 0.60-1.30 MG/DL Estimat Glomerular Filtration Rate 43 BUN/Creatinine Ratio 14 Glucose Level 424 *H 70-105 MG/DL Lactic Acid Level 3.18 *H 0.50-2.00 MMOL/L Calcium Level 9.4 8.5-10.1 MG/DL Corrected Calcium 9.2 8.5-10.1 MG/DL Total Bilirubin 0.6 0.1-1.0 MG/DL Aspartate Amino Transf (AST/SGOT) 93 H 5-34 U/L Alanine Aminotransferase (ALT/SGPT) 92 H 0-55 U/L Alkaline Phosphatase 107 40-136 U/L Total Protein 7.3 6.4-8.2 GM/DL Albumin 4.3 3.2-4.5 GM/DL Urine Color YELLOW Urine Clarity VERY CLOUDY H Urine pH 5 5-9 Urine Specific [place] 1.020 1.016-1.022 Urine Protein 2+ H NEGATIVE Urine Glucose (UA) 4+ H NEGATIVE Urine Ketones NEGATIVE NEGATIVE Urine Nitrite NEGATIVE NEGATIVE Urine Bilirubin NEGATIVE NEGATIVE Urine Urobilinogen NORMAL NORMAL MG/DL Urine Leukocyte Esterase 1+ H NEGATIVE Urine RBC (Auto) 3+ H NEGATIVE Urine RBC 2-5 H /HPF Urine WBC 0-2 /HPF Urine Squamous Epithelial Cells 0-2 /HPF Urine Crystals PRESENT H /LPF Urine Calcium Oxalate Crystals RARE H /LPF Urine Bacteria LARGE H /HPF Urine Casts NONE /LPF Urine Mucus NEGATIVE /LPF Urine Yeast FEW H /HPF Urine Culture Indicated YES Micro Results Microbiology 01/07/19 Influenza Types A,B Antigen (DYLAN) - Final, Complete My Orders Orders - VU CASTELLON DO Saline Lock/Iv-Start (01/07/19 21:43) O2 (01/07/19 21:43) Monitor-Rhythm Ecg Trace Only (01/07/19 21:43) Cbc With Automated Diff (01/07/19 21:43) Comprehensive Metabolic Panel (01/07/19 21:43) Lactic Acid Analyzer (01/07/19 21:43) Ua Culture If Indicated (01/07/19 21:43) Blood Culture (01/07/19 21:43) Influenza A And B Antigens (01/07/19 21:43) Chest 1 View, Ap/Pa Only (01/07/19 21:43) Manual Differential (01/07/19 21:54) Insulin (Regular) Human (Humulin R (Per (01/07/19 22:45) Saline Lock/Iv-Start (01/07/19 22:33) Ns Iv 1000 Ml (Sodium Chloride 0.9%) (01/07/19 22:33) Albuterol/Ipra Inhalation Soln (Duoneb I (01/07/19 22:45) Dexamethasone Injection (Decadron Inject (01/07/19 22:45) Svn Small Volume Nebulizer (01/07/19 22:34) Ondansetron Injection (Zofran Injectio (01/07/19 22:45) Urine Culture (01/07/19 22:34) Levofloxacin 500 Mg/100 Ml Iv (Levaquin (01/07/19 23:00) Medications Given in ED Current Medications Medications Dose Ordered Sig/Rigo Route Start Time Stop Time Status Last Admin Dose Admin Albuterol/ Ipratropium 3 ml ONCE ONCE INH 01/07/19 22:45 01/07/19 22:46 DC 01/08/19 00:08 3 ML Dexamethasone Sodium Phosphate 20 mg ONCE ONCE IH 01/07/19 22:45 01/07/19 22:46 DC 01/08/19 00:28 20 MG Insulin Human Regular 25 unit ONCE ONCE IV 01/07/19 22:45 01/07/19 23:21 DC 01/07/19 23:18 25 UNIT Ondansetron HCl 4 mg ONCE ONCE IVP 01/07/19 22:45 01/07/19 22:46 DC 01/07/19 23:18 4 MG Sodium Chloride 1,000 ml @ 0 mls/hr Q0M ONCE IV 01/07/19 22:33 01/07/19 23:21 DC 01/07/19 23:18 0 MLS/HR Vital Signs/I&O 01/07/19 01/07/19 01/07/19 21:37 21:37 21:37 Temp 99.6 Pulse 100 Resp 22 B/P (MAP) 115/76 (89) Pulse Ox 96 95 O2 Delivery Nasal Cannula Nasal Cannula Nasal Cannula O2 Flow Rate 2.00 2.00 2.00 100.00 FiO2 100 Capillary Refill : Less Than 3 Seconds Blood Pressure Mean: 79 Point of Care Testing Finger Stick Blood Glucose: 308 Blood Glucose Action Taken: NOTIFIED DR. CASTELLON Progress Note : Progress Note WHEEZING DECREASED WITH NEB TREATMENT O2 SATS 88-89% ON ROOM AIR--UP TO MID 90'S ON 2L/NC NO DETERIORATION IN PT'S CONDITION DURING ER STAY Diagnostic Imaging Comments CXR--BIBASILAR INFILTRATES/ATELECTASIS, PENDING RADIOLOGIST REVIEW Reviewed: Reviewed by Me Departure Communication (Admissions) [id number]--SPOKE WITH DR. RAMEY, HOSPITALIST MAINTENANCE MECHANIC HELPER FOR [facility]. ACCEPTS PT FOR ADMIT. Impression Primary Impression: COPD exacerbation Additional Impressions: POSSIBLE PNEUMONIA Uncontrolled diabetes mellitus HX OF CAD WITH CABG UTI (urinary tract infection) Hypoxia Disposition: ADMITTED INPATIENT Condition: Improved Admissions Decision to Admit Reason: Admit from ER (General) Decision to Admit/Date: Jan 07, 2019 Time/Decision to Admit Time: 23:10 Departure-Patient Inst. Referrals: NALINI GOMEZ (Family) Primary Care Physician [facility] (PCP) Primary Care Physician VU CASTELLON DO Jan 08, 2019 07:17
[2019-01-08] MEDS ORDERED: FLU QUADRIvalent (5+ YOA) 2018-2019 (AFLURIA) 0.5 ML IM ONE (08:15)
[2019-01-08] MEDS: RT-ALBUTEROL/IPRATROPIUM 3 ML (DUONEB) VIAL INH SCH ×2 (08:29→15:51)
--- NOTE | 2019-01-08 10:04 | Diagnostic Imaging Report ---
INDICATION: Suspected pneumonia, hypoxia, nausea, vomiting. TECHNIQUE: Single view chest at 4:08 AM. CORRELATION STUDY: 01/07/2019 FINDINGS: Poststernotomy and coronary bypass changes. Heart size and mediastinum are generally stable. Vascularity is unchanged. Mildly prominent interstitial markings throughout both lung albright. No significant infiltrate. IMPRESSION: 1. Poststernotomy changes. Borderline heart size and vasculature. No significant infiltrate. Dictated by: Dictated on workstation # [id number]
--- NOTE | 2019-01-08 11:00 | Diagnostic Imaging Report ---
PROCEDURE: US abdomen complete. TECHNIQUE: Multiple real-time grayscale images were obtained over the abdomen in various projections. INDICATION: Abnormal liver function test. Nausea and vomiting. COMPARISON: Renal ultrasound performed on 05/22/[address] abdomen and pelvis performed on 04/05/2017. FINDINGS: Liver: Diffusely echogenic parenchyma. No focal lesion is seen. Appropriate hepatopetal flow is demonstrated in the main portal vein. Gallbladder: Surgically absent. Biliary Tree: No intrahepatic biliary ductal dilatation is demonstrated. The common bile duct is not visualized. Pancreas: Obscured by overlying bowel gas. Spleen: Normal in size and echotexture. Splenic length measures 10.2 cm. Right kidney: Normal parenchymal echotexture and thickness. No hydronephrosis or stone. No significant change in cyst in the upper pole measuring up to 5.5 cm. Left kidney: Normal parenchymal echotexture and thickness. No hydronephrosis, stone or mass. Aorta: The mid aorta is normal in course and caliber. The proximal and distal aorta are obscured by overlying bowel gas. Inferior vena cava: The intrahepatic portions of the IVC are normal. Other: No free fluid. IMPRESSION: 1. Mildly echogenic liver, likely reflecting hepatic steatosis. 2. Status post cholecystectomy. 3. Portions of the aorta and pancreas, as well as the common bile duct are obscured on this exam. Dictated by: Dictated on workstation # [id number]
[2019-01-08] MEDS: fentaNYL INJECTION 100 MCG/2 ML AMP IVP PRN ×5 (11:49→23:57)
--- NOTE | 2019-01-08 12:06 | History & Physical-Hospitalist ---
History of Present Illness HPI/Chief Complaint CC: Fever HPI: This is a 68yoWF w/h/o CAD with CABg who presents to the ER with weakness and fever. Patient was found to have elevated lactic acid and evidence of pneumonia and UTI with sepsis so she was placed in the ICU for close monitoring and critical care management consultation. Patient reports she feels about the same overall since admit and she is tolerating the aggressive IVF given for elevated lactic acid. Dr Carroll consultation is appreciated. Source: patient, RN/MD Exam Limitations: no limitations Date Seen 01/08/19 Time Seen by a Provider: 11:30 Attending Physician Nicole Galdamez DO [facility] Referring Physician Date of Admission Jan 07, 2019 at 23:10 Home Medications & Allergies Home Medications Reviewed patient Home Medication Reconciliation performed by pharmacy medication reconciliations electro mechanical solar technician and/or nursing. Patients Allergies have been reviewed. Allergies Allergies Coded Allergies Penicillins (Unverified Allergy, Unknown, ANAPHALYTIC SHOCK, 03/20/14) ceftriaxone (Unverified Allergy, Unknown, 02/03/13) ceftriaxone sodium (Verified Allergy, Unknown, 03/20/14) Past Ogkdrhm-Gasjji-Vopqaf Hx Past Med/Social Hx: Reviewed Nursing Past Med/Soc Hx, Reviewed and Corrections made Patient Social History Alcohol Use: Denies Use Recreational Drug Use: No Smoking Status: Former Smoker Former Smoker, Quit: Jan 07, 1988 Type Used: Cigarettes 2nd Hand Smoke Exposure: No Physical Abuse Screen: No Sexual Abuse: No Recent Foreign Travel: No Contact w/other who traveled: No Recent Hopitalizations: Yes (HYST,ANTONIA,CABG,APPY,BIAT.TKR,BREAST BX,FOOT SURG. ,CATARACTS) Recent Infectious Disease Expo: No Immunizations Up To Date Tetanus Booster (TDap): Unknown Date of Pneumonia Vaccine: March 24, 2012 Date of Influenza Vaccine: Aug 21, 2013 Past Medical History Surgeries: Appendectomy, Cardiac, CABG, Coronary Stent, Eye Surgery, Gallbladder, Hysterectomy, Joint Replacement, Oophorectomy, Orthopedic Currently Using CPAP: No Currently Using BIPAP: No Cardiac: Coronary Artery Disease, High Cholesterol, Hypertension : No Reproductive: No Hysterectomy Genitourinary: Kidney Infection, Bladder Infection, UTI-Chronic Gastrointestinal: Ulcer Musculoskeletal: Osteoporosis, Arthritis, Chronic Back Pain Endocrine: Hypothyroidsim, Diabetes, Non-Insulin dep Are Your Blood Sugars Over 250: Yes HEENT: Cataract, Eye Injury Loss of Vision: Left Psychosocial: Anxiety, Depression History of Blood Disorders: No Family History Cancer G8 SISTER Cataract 19 MOTHER Family history: Arthritis 19 MOTHER G8 SISTER Family history: Diabetes mellitus 19 FATHER 19 MOTHER G8 BROTHER G8 SISTER Family history: Hypertension 19 FATHER 19 MOTHER Family history: Thyroid disorder 19 MOTHER Hearing loss G8 BROTHER Myocardial infarction 19 FATHER 19 MOTHER Parkinson's disease 19 MOTHER No Family History of: Abdominal aortic aneurysm Alcoholism Family history: Alzheimer's disease Family history: Asthma Family history: Gastrointestinal disease Hereditary disease History of - anemia History of - respiratory disease Kidney disease Prostate cancer Psychotic disorder Seizure disorder Stroke Review of Systems Constitutional: see HPI, chills, diaphoresis, dizziness, fever, malaise, weakness EENTM: no symptoms reported Respiratory: cough, dyspnea on exertion, short of breath Cardiovascular: no symptoms reported Gastrointestinal: no symptoms reported Genitourinary: no symptoms reported Musculoskeletal: no symptoms reported Skin: no symptoms reported Psychiatric/Neurological: No Symptoms Reported All Other Systems Reviewed Negative Unless Noted: Yes Physical Exam Physical Exam Vital Signs Vital Signs - First Documented 01/07/19 21:37 FiO2 100 Capillary Refill : Less Than 3 Seconds Height, Weight, BMI Height: 5'4.00" Weight: 212lbs. 0.0oz. 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 Assessment/Plan Admission Diagnosis Assessment: Sepsis Elevated lactic acid Metabolic acidosis Pneumonia UTI CAD CABG hx Hypoxia DM Plan: IVF IV abx Monitor closely Admission Status: Inpatient Order (span 2 midnights) Reason for Inpatient Admission: Severe sepsis will require 3 days inpt at least Diagnosis/Problems Diagnosis/Problems (1) Pneumonia Status: Acute Qualifiers: Pneumonia type: due to unspecified organism Laterality: unspecified laterality Lung location: unspecified part of lung Qualified Codes: J18.9 - Pneumonia, unspecified organism (2) Metabolic acidosis Status: Acute (3) CAD (coronary artery disease) Status: Chronic Qualifiers: Coronary Disease-Associated Artery/Lesion type: saxman artery Hughes vs. transplanted heart: saxman heart Associated angina: without angina Qualified Codes: I25.10 - Atherosclerotic heart disease of saxman coronary artery without angina pectoris (4) Nausea and vomiting Status: Acute Qualifiers: Vomiting Intractability: unspecified (5) UTI (urinary tract infection) Status: Acute Qualifiers: Urinary tract infection type: acute cystitis Hematuria presence: without hematuria Qualified Codes: N30.00 - Acute cystitis without hematuria (6) COPD exacerbation Status: Acute (7) Hypoxia Status: Acute (8) Uncontrolled diabetes mellitus Status: Chronic Qualifiers: Diabetes mellitus type: type 2 Glycemic state: with hyperglycemia Qualified Codes: E11.65 - Type 2 diabetes mellitus with hyperglycemia Clinical Quality Measures DVT/VTE Risk/Contraindication: Risk Factor Score Per Nursin RFS Level Per Nursing on Admit: 4+=Very High NICOLE GALDAMEZ DO Jan 08, 2019 12:06
[2019-01-08] MEDS: ACETAMINOPHEN 500 MG TAB (TYLENOL) PO PRN (16:47)
[2019-01-08] MEDS ORDERED: LEVOFLOXACIN 750 MG/D5W 150 ML PRE-MIX IV NR (21:00)
[2019-01-09] VITALS (11 sets, daily range): BP systolic 86–133; BP diastolic 48–88
[2019-01-09 03:50] LABS: BASOPHILS % (AUTO) 0 % (0-10); EOSINOPHILS % (AUTO) 0 % (0-10); HEMATOCRIT 37 % (35-52); LYMPHOCYTES # (AUTO) 0.6 X 10^3 (1.0-4.0); LYMPHOCYTES % (AUTO) 7 % (12-44); MEAN CORPUSCULAR HEMOGLOBIN 29 PG (25-34); MEAN CORPUSCULAR HGB CONC 32 G/DL (32-36); MEAN CORPUSCULAR VOLUME 91 FL (80-99); MEAN PLATELET VOLUME 9.8 FL (7.4-10.4); MONOCYTES # (AUTO) 0.6 X 10^3 (0.0-1.0); MONOCYTES % (AUTO) 8 % (0-12); NEUTROPHILS # (AUTO) 6.9 X 10^3 (1.8-7.8); NEUTROPHILS % (AUTO) 85 % (42-75); PLATELET COUNT 172 10^3/uL (130-400); RED CELL DISTRIBUTION WIDTH 14.2 % (10.0-14.5); WHITE BLOOD COUNT 8.1 10^3/uL (4.3-11.0)
[2019-01-09] MEDS: RT-ALBUTEROL/IPRATROPIUM 3 ML (DUONEB) VIAL INH SCH ×4 (03:52→19:48)
[2019-01-09 04:10] LABS: ALBUMIN 3.5 GM/DL (3.2-4.5); BILIRUBIN,TOTAL 0.4 MG/DL (0.1-1.0); CALCIUM 7.9 MG/DL (8.5-10.1); CREATININE SERUM 0.93 MG/DL (0.60-1.30); MAGNESIUM 2.2 MG/DL (1.8-2.4); PHOSPHORUS 2.7 MG/DL (2.3-4.7); POTASSIUM 4.6 MMOL/L (3.6-5.0); TOTAL PROTEIN 5.9 GM/DL (6.4-8.2)
[2019-01-09] MEDS: fentaNYL INJECTION 100 MCG/2 ML AMP IVP PRN (04:13)
[2019-01-09] MEDS: ACETAMINOPHEN 500 MG TAB (TYLENOL) PO PRN ×2 (04:13→17:29)
--- NOTE | 2019-01-09 04:49 | Pulmonary Progress Note ---
Subjective Time Seen by a Provider: 04:53 Subjective/Events-last exam Pt still coughing and c/o SOB. Sepsis Event Evaluation Height, Weight, BMI Height: 5'4.00" Weight: 212lbs. 0.0oz. 96.154966li; 35.7 BMI Method:Stated Focused Exam Lactate Level 01/08/19 02:30: Lactic Acid Level 3.03*H 01/08/19 08:34: Lactic Acid Level 3.14*H 01/08/19 10:43: Lactic Acid Level 2.19*H Exam Exam Vital Signs Date Time Temp Pulse Resp B/P (MAP) Pulse Ox O2 Delivery O2 Flow Rate FiO2 01/09/19 03:52 94 Nasal Cannula 2.00 01/09/19 03:00 71 26 105/67 (80) 91 Nasal Cannula 2.00 01/09/19 02:00 78 32 118/67 (84) 91 Nasal Cannula 2.00 01/09/19 01:00 86 27 128/70 (89) 93 Nasal Cannula 2.00 01/09/19 01:00 86 01/09/19 00:00 77 32 114/65 (81) 93 Nasal Cannula 2.00 01/08/19 23:00 70 31 120/68 (85) 94 Nasal Cannula 2.00 01/08/19 22:00 71 38 121/67 (85) 94 Nasal Cannula 2.00 01/08/19 21:00 72 26 124/70 (88) 93 Nasal Cannula 2.00 01/08/19 20:00 96 Nasal Cannula 2.00 01/08/19 20:00 74 27 117/66 (83) 92 Nasal Cannula 2.00 01/08/19 19:00 71 15 109/62 (78) 94 Nasal Cannula 2.00 01/08/19 19:00 71 01/08/19 18:00 88 17 115/51 (72) 90 Nasal Cannula 2.00 01/08/19 17:00 94 27 132/63 (86) 94 Nasal Cannula 2.00 01/08/19 16:00 94 Nasal Cannula 2.00 01/08/19 16:00 92 13 110/60 (77) 94 Nasal Cannula 2.00 01/08/19 16:00 99.9 01/08/19 15:51 94 Nasal Cannula 2.00 01/08/19 15:00 80 30 138/54 (82) 94 Nasal Cannula 2.00 01/08/19 14:00 80 29 131/72 (91) 93 Nasal Cannula 2.00 01/08/19 13:00 76 26 120/68 (85) 95 Nasal Cannula 2.00 01/08/19 13:00 83 01/08/19 12:00 99.8 01/08/19 12:00 96 Nasal Cannula 2.00 01/08/19 12:00 87 30 127/70 (89) 94 Nasal Cannula 2.00 01/08/19 11:00 71 27 104/51 (68) 91 Nasal Cannula 2.00 01/08/19 10:00 78 16 110/58 (75) 96 Nasal Cannula 2.00 01/08/19 09:00 86 25 140/57 (84) 94 Nasal Cannula 2.00 01/08/19 08:29 97 Nasal Cannula 2.00 01/08/19 08:00 86 21 138/71 (93) 95 Nasal Cannula 2.00 01/08/19 08:00 99.4 01/08/19 08:00 96 Nasal Cannula 2.00 01/08/19 07:00 84 21 125/72 (89) 96 Nasal Cannula 2.00 01/08/19 07:00 84 01/08/19 06:00 85 27 115/62 (79) 95 Nasal Cannula 2.00 01/08/19 05:00 90 22 117/59 (78) 94 Nasal Cannula 2.00 I & O 01/09/19 06:59 Intake Total 4260 ml Output Total 350 ml Balance 3910 ml Height & Weight Height: 5'4.00" Weight: 212lbs. 0.0oz. 96.512482qt; 35.7 BMI Method:Stated General Appearance: No Apparent Distress, Anxious, Chronically ill, Obese Respiratory: Accessory Muscle Use, Crackles, Decreased Breath Sounds, Wheezing Capillary Refill: Less Than 3 Seconds Gastrointestinal: non tender, soft Neurologic/Psychiatric: Alert, Oriented x3, No Motor/Sensory Deficits, Normal Mood/Affect, internal communications writer II-XII Norm as Tested Skin: Normal Color, Warm/Dry Lymphatic: No Adenopathy Results Lab Laboratory Tests 01/07/19 21:54 01/08/19 02:30 01/09/19 03:10 Assessment/Plan Assessment/Plan Acute on chronic respiratory failure -Check ABG UTI -Levaquin Acute bronchitis with Pneumonia -Solumedrol -Levaquin -Decrease IVF to saline lock Nausea/vomiting - resolved - amylase and lipase - Normal Metabolic lactic acidosis - resolved -Continue IVF -Velásquez cultures Elevated LFTs- improving -Monitor NIDDM- uncontrolled -Check A1C DOROTHEA ALONSO DO Jan 09, 2019 04:49
[2019-01-09] MEDS: methylPREDNISolone 40 MG/ML (Solu-MEDROL) VIAL IV SCH ×3 (06:36→17:28)
[2019-01-09] MEDS: inSUlin ASPART (NovoLOG) 1 UNIT/0.01 ML (CHARGE PER UNIT) SC SCH ×4 (06:36→21:34)
--- NOTE | 2019-01-09 07:37 | Diagnostic Imaging Report ---
INDICATION: Hypoxia. COMPARISON: 01/08/2019 FINDINGS: Stable mild cardiomegaly. Pulmonary vasculature is within normal limits. Sternotomy wires are noted. The lungs are well aerated and clear. No large pleural effusion or pneumothorax is seen. The visualized osseous structures show no acute abnormalities. IMPRESSION: 1. Stable cardiomegaly, but no evidence of failure or focal infiltrate. Dictated by: Dictated on workstation # [id number]
[2019-01-09 07:53] LABS: ABG BASE EXCESS -2.8 MMOL/L (-2.5-2.5); ABG OXYGEN SATURATION 90 % (94-100); ABG PCO2 38 MMHG (35-45); ABG PH 7.38 (7.37-7.43); ABG PO2 55 MMHG (79-93); ABG TCO2 22.8 MMOL/L (21.0-31.0); ALLENS TEST YES-POS; INSPIRED O2 2; VENTILATOR NO
[2019-01-09] MEDS ORDERED: ROPI4TAB5 PO (09:05)
[2019-01-09] MEDS ORDERED: LOSA50TA63 PO (09:05)
[2019-01-09] MEDS ORDERED: RANI150T11 PO (09:05)
[2019-01-09] MEDS ORDERED: CETI10TA17 PO (09:05)
[2019-01-09] MEDS ORDERED: CITA10TA7 PO (09:05)
[2019-01-09] MEDS ORDERED: TROS20TA3 PO (09:05)
[2019-01-09] MEDS ORDERED: METF-397 PO (09:05)
[2019-01-09] MEDS ORDERED: LEVO175T5 PO (09:05)
[2019-01-09] MEDS ORDERED: ATOR40TA70 PO (09:05)
[2019-01-09] MEDS ORDERED: HYDR-3820 PO (09:05)
[2019-01-09] MEDS ORDERED: PRD20T PO (09:05)
[2019-01-09] MEDS ORDERED: FESO8TAB PO (09:25)
[2019-01-09] MEDS ORDERED: RT-ALBUINH INH (09:25)
[2019-01-09] MEDS ORDERED: MONT10TA21 PO (09:25)
[2019-01-09] MEDS ORDERED: FLUT1DIS27 IH (09:25)
[2019-01-09] MEDS ORDERED: GUAI5SYR PO (09:31)
--- NOTE | 2019-01-09 09:32 | NUR ---
SPOKE WITH THE PATIENT ABOUT HER MEDICATIONS. WE WENT OVER THE EXT MED HX AND SHE VERIFIED HOW SHE TAKES HER MEDICATION. IN ADDITION TO WHAT IS SHOWN ON THE EXT MED HX SHE TAKES THE FOLLOWIN11-18-18 SINGULAIR 10MG DAILY #11-03-18 TOVIAZ 8MG DAILY #10-28-18 ADVAIR 500-50 BID #3 INHALERS 04-29-18 VENTOLIN 2 PUFFS Q6H PRN SHE ALSO STATES SHE TAKES ROBITUSSIN DM OTC NEEDED, SHE STATE SOMETIMES SHE GETS PRESCRIPTION COUGH SYRUP BUT HAS NOT HAD THAT FILLED IN AWHILE. SHE STATES SHE IS SUPPOSED TO TAKE AN ASPIRIN DAILY OTC HOWEVER HAS NOT BEEN ABLE TO AFFORD THAT AND HAS BEEN WITHOUT IT FOR ABOUT A MONTH. I REMOVED IT FROM THE MED REC AT THIS TIME.
[2019-01-09] MEDS: BENZONATATE 100 MG (TESSALON) CAPSULE PO PRN ×2 (17:29)
--- NOTE | 2019-01-09 18:57 | NUR ---
Patient transferred to [facility] per accompanied by staff. Patient and family notified and understand transfer. Personal belongings with patient. Report recieved from FUENTES De La Torre. Will give report off to FUENTES Whatley as it is shift change at this time.
--- NOTE | 2019-01-09 19:55 | Progress Note (SOAP) ---
Subjective Subjective/Events-last exam 68 yo F with COPD that presented with worsening shortness of breath. This AM she is still having shortness of breath with minimal exertion but she is feeling better. Tolerating PO diet. Denies any fever or chills. Review of Systems Date Seen by Provider: Jan 09, 2019 Time Seen by Provider: 11:45 Pulmonary: Dyspnea, Cough Cardiovascular: Orthopnea, Edema; No: Chest Pain, Palpitations Gastrointestinal: No: Nausea, Vomiting Neurological: Weakness Focused Exam Lactate Level 01/08/19 02:30: Lactic Acid Level 3.03*H 01/08/19 08:34: Lactic Acid Level 3.14*H 01/08/19 10:43: Lactic Acid Level 2.19*H Objective Exam Last Set of Vital Signs Vital Signs Date Time Temp Pulse Resp B/P (MAP) Pulse Ox O2 Delivery O2 Flow Rate FiO2 01/09/19 19:19 98.3 85 28 133/61 93 Room Air 01/09/19 16:24 2.00 01/07/19 21:37 100 Capillary Refill : Less Than 3 Seconds I&O Intake and Output 01/09/19 00:00 Intake Total 9190.11 ml Output Total 700 ml Balance 8490.11 ml Intake Oral 2010 ml IV Total 7180.11 ml Output Urine Total 700 ml # Voids 8 # Bowel Movements 2 Daily Weight Change No General: Alert, Oriented X3, Cooperative, Mild Distress HEENT: Mucous Memb Moist/[place] Lungs: Other (Diminished breath sounds, mild increased work of breathing with minimal exertion and conversational dyspnea, basilar wheezing bilaterally) Abdomen: Normal Bowel Sounds, Soft, No Tenderness, No Masses Extremities: No Tenderness/Swelling Neuro: Strength at 5/5 X4 Ext, Cranial Nerves 3-12 NL Psych/Mental Status: Mental Status NL, Mood NL Results/Procedures Lab Laboratory Tests 01/08/19 22:00: Glucometer 315H 01/09/19 03:10: White Blood Count 8.1, Red Blood Count 4.10L, Hemoglobin 12.0, Hematocrit 37, Mean Corpuscular Volume 91, Mean Corpuscular Hemoglobin 29, Mean Corpuscular Hemoglobin Concent 32, Red Cell Distribution Width 14.2, Platelet Count 172, Mean Platelet Volume 9.8, Neutrophils (%) (Auto) 85H, Lymphocytes (%) (Auto) 7L , Monocytes (%) (Auto) 8, Eosinophils (%) (Auto) 0, Basophils (%) (Auto) 0, Neutrophils # (Auto) 6.9, Lymphocytes # (Auto) 0.6L, Monocytes # (Auto) 0.6, Eosinophils # (Auto) 0.0, Basophils # (Auto) 0.0, Sodium Level 137, Potassium Level 4.6, Chloride Level 107, Carbon Dioxide Level 21, Anion Gap 9, Blood Urea Nitrogen 15, Creatinine 0.93, Estimat Glomerular Filtration Rate 60, BUN/ Creatinine Ratio 16, Glucose Level 254H, Calcium Level 7.9L, Corrected Calcium 8.3L, Phosphorus Level 2.7, Magnesium Level 2.2, Total Bilirubin 0.4, Aspartate Amino Transf (AST/SGOT) 77H, Alanine Aminotransferase (ALT/SGPT) 69H, Alkaline Phosphatase 68, Total Protein 5.9L, Albumin 3.5 01/09/19 07:44: Blood Gas Puncture Site R RADIAL, Blood Gas Patient Temperature 98.0, Arterial Blood pH 7.38, Arterial Blood Partial Pressure CO2 38, Arterial Blood Partial Pressure O2 55L, Arterial Blood HCO3 22L, Arterial Blood Total CO2 22.8, Arterial Blood Oxygen Saturation 90L, Arterial Blood Base Excess -2.8L, Erick Test YES-POS, Blood Gas Ventilator Setting NO, Blood Gas Inspired Oxygen 2 01/09/19 11:09: Glucometer 329H 01/09/19 16:58: Glucometer 366H Microbiology 01/08/19 Blood Culture - Preliminary, Resulted No growth 01/08/19 MRSA Screen - Final, Complete 01/07/19 Urine Culture - Final, Complete 3 or more isolates Assessment/Plan Assessment/Plan (1) Acute and chronic respiratory failure with hypoxia Status: Acute Assessment & Plan: - Dr Carroll seeing patient, Will continue steroids/ antibiotics and breathing treatments, CXR clear, will titrate oxygen as tolerated (2) Non-insulin dependent type 2 diabetes mellitus Status: Chronic Assessment & Plan: - Hold home metformin, SSI (3) Elevated LFTs Status: Acute Assessment & Plan: - Will continue to monitor (4) COPD exacerbation Status: Acute (5) Acute bronchitis Status: Acute Qualifiers: Qualified Codes: J20.9 - Acute bronchitis, unspecified (6) UTI (urinary tract infection) Status: Acute Qualifiers: Qualified Codes: N30.00 - Acute cystitis without hematuria (7) DVT prophylaxis Status: Acute Assessment & Plan: - Lovenox Clinical Quality Measures DVT/VTE Risk/Contraindication: Risk Factor Score Per Nursin RFS Level Per Nursing on Admit: 4+=Very High LIN ARMSTRONG MD Jan 09, 2019 19:55
--- NOTE | 2019-01-09 21:00 | NUR ---
PER FBS [address] ARMSTRONG. DC SSA, START NOVOLOG SSB, GIVE 10 UNITS LEVEMIR SQ ONCE NOW. TORBV
[2019-01-09] MEDS ORDERED: inSUlin DETERMIR 1 UNIT/0.01 ML (LEVEMIR) CHARGE PER UNIT SQ ONE ×2 (21:14→21:15)
[2019-01-09] MEDS: LEVOFLOXACIN 750 MG TAB (LEVAQUIN) PO SCH (21:33)
[2019-01-09] MEDS ORDERED: LEVOFLOXACIN 750 MG/D5W 150 ML (PRE-MIX) IV ONE (23:00)
[2019-01-10 00:55] VITALS: BP 130/81
[2019-01-10] MEDS: methylPREDNISolone 40 MG/ML (Solu-MEDROL) VIAL IV SCH ×2 (01:30→07:00)
[2019-01-10] MEDS: RT-ALBUTEROL/IPRATROPIUM 3 ML (DUONEB) VIAL INH SCH ×4 (02:46→19:05)
[2019-01-10 05:18] LABS: BASOPHILS % (AUTO) 0 % (0-10); EOSINOPHILS % (AUTO) 0 % (0-10); HEMATOCRIT 39 % (35-52); HEMOGLOBIN 12.7 G/DL (11.5-16.0); LYMPHOCYTES # (AUTO) 0.6 X 10^3 (1.0-4.0); LYMPHOCYTES % (AUTO) 8 % (12-44); MEAN CORPUSCULAR HGB CONC 33 G/DL (32-36); MEAN CORPUSCULAR VOLUME 90 FL (80-99); MEAN PLATELET VOLUME 9.8 FL (7.4-10.4); MONOCYTES # (AUTO) 0.5 X 10^3 (0.0-1.0); MONOCYTES % (AUTO) 7 % (0-12); NEUTROPHILS # (AUTO) 6.2 X 10^3 (1.8-7.8); NEUTROPHILS % (AUTO) 85 % (42-75); PLATELET COUNT 180 10^3/uL (130-400); RED CELL DISTRIBUTION WIDTH 14.6 % (10.0-14.5); WHITE BLOOD COUNT 7.3 10^3/uL (4.3-11.0)
[2019-01-10 05:40] LABS: MEAN CORPUSCULAR HEMOGLOBIN 29 PG (25-34)
[2019-01-10 05:49] LABS: ALBUMIN 3.6 GM/DL (3.2-4.5); BILIRUBIN,TOTAL 0.3 MG/DL (0.1-1.0); CALCIUM 8.6 MG/DL (8.5-10.1); CREATININE SERUM 0.95 MG/DL (0.60-1.30); MAGNESIUM 1.8 MG/DL (1.8-2.4); PHOSPHORUS 3.3 MG/DL (2.3-4.7); POTASSIUM 4.2 MMOL/L (3.6-5.0); TOTAL PROTEIN 6.1 GM/DL (6.4-8.2)
[2019-01-10] MEDS: inSUlin ASPART (NovoLOG) 1 UNIT/0.01 ML (CHARGE PER UNIT) SC SCH ×4 (07:00→21:32)
--- NOTE | 2019-01-10 07:35 | Pulmonary Progress Note ---
Subjective Time Seen by a Provider: 06:45 Subjective/Events-last exam No complications noted. Sepsis Event Evaluation Height, Weight, BMI Height: 5'4.00" Weight: 224lbs. 0.6oz. 101.073773hd; 35.7 BMI Method:Stated Focused Exam Lactate Level 01/08/19 02:30: Lactic Acid Level 3.03*H 01/08/19 08:34: Lactic Acid Level 3.14*H 01/08/19 10:43: Lactic Acid Level 2.19*H Exam Exam Vital Signs Date Time Temp Pulse Resp B/P (MAP) Pulse Ox O2 Delivery O2 Flow Rate FiO2 01/10/19 02:48 92 Room Air 01/10/19 00:55 97.1 67 18 130/81 (97) 94 Room Air 01/09/19 20:00 94 Nasal Cannula 2.00 01/09/19 19:54 91 Room Air 01/09/19 19:19 98.3 85 28 133/61 93 Room Air 01/09/19 16:24 94 Nasal Cannula 2.00 01/09/19 16:10 92 Room Air 01/09/19 15:47 98.6 70 18 119/72 (88) 93 Room Air 01/09/19 13:00 105 01/09/19 12:00 94 Nasal Cannula 2.00 01/09/19 12:00 98.8 71 20 131/67 (88) 95 Room Air 01/09/19 09:41 96 Nasal Cannula 2.00 01/09/19 08:00 99.0 74 25 109/61 (77) 94 Nasal Cannula 2.00 01/09/19 08:00 94 Nasal Cannula 2.00 01/09/19 08:00 99.0 74 25 109/61 (77) 94 Nasal Cannula 2.00 01/09/19 08:00 94 Nasal Cannula 2.00 I & O 01/10/19 07:00 Intake Total 1340 ml Balance 1340 ml Height & Weight Height: 5'4.00" Weight: 224lbs. 0.6oz. 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
[2019-01-10 08:00] VITALS: BP 131/75
[2019-01-10] MEDS ORDERED: ANTACID SUSP 30 ML UDC (MYLANTA) PO NR (10:15)
[2019-01-10] MEDS ORDERED: LIDOCAINE 2% VISCOUS 15 ML UDC PO NR (10:15)
--- NOTE | 2019-01-10 11:07 | Progress Note (SOAP) ---
Subjective Subjective/Events-last exam Patient continues to complain of shortness of breath. Having some epigastric pain this AM. States that it does not change with eating. Had BM this AM. Tolerating PO diet and ambulation. Review of Systems Date Seen by Provider: Jan 10, 2019 Time Seen by Provider: 10:00 Pulmonary: Dyspnea, Cough Cardiovascular: No: Chest Pain, Palpitations Gastrointestinal: Abdominal Pain; No: Nausea, Vomiting Focused Exam Lactate Level 01/08/19 02:30: Lactic Acid Level 3.03*H 01/08/19 08:34: Lactic Acid Level 3.14*H 01/08/19 10:43: Lactic Acid Level 2.19*H Objective Exam Last Set of Vital Signs Vital Signs Date Time Temp Pulse Resp B/P (MAP) Pulse Ox O2 Delivery O2 Flow Rate FiO2 01/10/19 10:33 93 Room Air 01/10/19 08:00 98.0 77 20 131/75 (93) 01/09/19 20:00 2.00 01/07/19 21:37 100 Capillary Refill : Less Than 3 Seconds I&O Intake and Output 01/10/19 00:00 Intake Total 1590 ml Balance 1590 ml Intake Oral 1590 ml # Voids 7 # Urine Diapers 3 # Bowel Movements 2 General: Alert, Oriented X3, Cooperative, No Acute Distress HEENT: Mucous Memb Moist/[place] Lungs: Other (Diffuse wheezing and, normal work of breathing) Heart: Regular Rate, No Murmurs Abdomen: Normal Bowel Sounds, Soft, Other (epigastri ttp, no rebound or gaurding) Extremities: No Edema, No Tenderness/Swelling Results/Procedures Lab Laboratory Tests 01/09/19 11:09: Glucometer 329H 01/09/19 16:58: Glucometer 366H 01/09/19 20:55: Glucometer 407*H 01/10/19 04:40: White Blood Count 7.3, Red Blood Count 4.31L, Hemoglobin 12.7, Hematocrit 39, Mean Corpuscular Volume 90, Mean Corpuscular Hemoglobin 29, Mean Corpuscular Hemoglobin Concent 33, Red Cell Distribution Width 14.6H, Platelet Count 180, Mean Platelet Volume 9.8, Neutrophils (%) (Auto) 85H, Lymphocytes (%) (Auto) 8L , Monocytes (%) (Auto) 7, Eosinophils (%) (Auto) 0, Basophils (%) (Auto) 0, Neutrophils # (Auto) 6.2, Lymphocytes # (Auto) 0.6L, Monocytes # (Auto) 0.5, Eosinophils # (Auto) 0.0, Basophils # (Auto) 0.0, Sodium Level 140, Potassium Level 4.2, Chloride Level 106, Carbon Dioxide Level 22, Anion Gap 12, Blood Urea Nitrogen 17, Creatinine 0.95, Estimat Glomerular Filtration Rate 58, BUN/ Creatinine Ratio 18, Glucose Level 282H, Calcium Level 8.6, Corrected Calcium 8.9, Phosphorus Level 3.3, Magnesium Level 1.8, Total Bilirubin 0.3, Aspartate Amino Transf (AST/SGOT) 60H, Alanine Aminotransferase (ALT/SGPT) 66H, Alkaline Phosphatase 73, Total Protein 6.1L, Albumin 3.6 01/10/19 05:12: Glucometer 263H Microbiology 01/08/19 Blood Culture - Preliminary, Resulted No growth 01/08/19 MRSA Screen - Final, Complete 01/07/19 Urine Culture - Final, Complete 3 or more isolates Assessment/Plan Assessment/Plan (1) Acute and chronic respiratory failure with hypoxia Status: Acute Assessment & Plan: - Dr Carroll seeing patient, Will continue steroids/ antibiotics and breathing treatments, CXR clear, will titrate oxygen as tolerated 01/10: Patient titrated off oxygen but still short of breath, Continue Levaquin/ steroids and PRN breathing treatments, PT ordered today (2) Non-insulin dependent type 2 diabetes mellitus Status: Chronic Assessment & Plan: - Hold home metformin, SSI 01/10: Add Levemir and continue SSI, A1c pending (3) Epigastric abdominal pain Status: Acute Assessment & Plan: 01/10: Try GI cocktail (4) Elevated LFTs Status: Acute Assessment & Plan: - Will continue to monitor (5) COPD exacerbation Status: Acute (6) Acute bronchitis Status: Acute Qualifiers: Qualified Codes: J20.9 - Acute bronchitis, unspecified (7) UTI (urinary tract infection) Status: Acute Qualifiers: Qualified Codes: N30.00 - Acute cystitis without hematuria (8) DVT prophylaxis Status: Acute Assessment & Plan: - Lovenox Clinical Quality Measures DVT/VTE Risk/Contraindication: Risk Factor Score Per Nursin RFS Level Per Nursing on Admit: 4+=Very High LIN ARMSTRONG MD Jan 10, 2019 11:07
[2019-01-10] MEDS: predniSONE 10 MG TAB PO SCH (11:15)
--- NOTE | 2019-01-10 11:30 | Physical Therapy Evaluation ---
PT Evaluation-General Medical Diagnosis Admission Date Jan 07, 2019 at 23:10 Medical Diagnosis: Suspected Pneumonia, Hypoxia Onset Date: Jan 07, 2019 Therapy Diagnosis Therapy Diagnosis: decreased mobility Height/Weight Height (Feet): 5 Height (Inches): 4.00 Weight (Pounds): 255 Weight (Ounces): 8.0 Precautions Precautions/Isolations: Contact Isolation, Standard Precautions Weight Bear Status Right Lower Extremity: Right Weight Bearing/Tolerated Left Lower Extremity: Left Weight Bearing/Tolerated Referral Physician: Dr. Guy Reason for Referral: Evaluation/Treatment Medical History Pertinent Medical History: Arthritis, CABG, CAD, COPD, DM, HTN, Hypothroidism Additional Medical History CABG, B TKA, Asthma, Osteoporosis, Cataracts Current History Pt to ER via EMS from home with c/o cough for 2 days w/ vomiting. Reviewed History: Yes Social History Home: Single Level Current Living Status: Alone Entry Into Home: Stairs Without Railing PT Steps Into Home: 1 Prior/Core FIM Prior Level of Function Therapy Code Descriptions/Definitions Functional [place] Measure: 0=Not Assessed/NA 4=Minimal Assistance 1=Total Assistance 5=Supervision or Setup 2=Maximal Assistance 6=Modified Mchenry 3=Moderate Assistance 7=Complete [place] Therapy Quality Codes: 6 Independent with activity with or without an assistive device 5 Patient requires set up or clean up by helper. Patient completes activity by themselves 4 Supervision or touching assist (CGA). [place] provide cues , steadying assist 3 The helper provides less than half the effort to complete the activity 2 The helper provides more than half the effort to complete the activity 1 Dependent. The helper does all the effort to complete an activity 7 Patient refused to complete or attempt activity 9 The patient did not perform the activity before the current illness or injury 88 Not attempted due to Medical conditions or safety concerns Functional Abilities and Goals: Independent: Patient completed the activities by him/herself, with or without an assistive device, with no assistance from a helper. Needed Some Help: Patient needed partial assistance from another person to complete activities. Dependent: A helper completed the activities for the patient. Unknown: Not Applicable: Bed Mobility: 7 Transfers (B,C,W/C) (FIM): 7 Gait: 6 Stairs: 6 Indoor Mobility (Ambulation): Independent Stairs: Independent Prior Devices Use: Walker Prior Device Use: 4WW PT Evaluation-Current Subjective Pt was in bed and agreed to PT. Pain Numeric Pain Scale: 0-No Pain Location: No Pain Reported Pt/Family Goals Pt to return home. Objective Patient Orientation: Person, Place, Situation, Normal For Age ROM/Strength ROM Lower Extremities NT Strength Lower Extremities NT Integumentary/Posture Bowel Incontinence: No Bladder Incontinence: No Neuromuscular (Tone, Coordination, Reflexes) NT Sensory Hearing: Functional Sensation Right Lower Extremit: Intact Sensation Left Lower Extremity: Intact Transfers Therapy Code Descriptions/Definitions Functional [place] Measure: 0=Not Assessed/NA 4=Minimal Assistance 1=Total Assistance 5=Supervision or Setup 2=Maximal Assistance 6=Modified Mchenry 3=Moderate Assistance 7=Complete [place] Transfers (B, C, W/C) (FIM): 7 Scootin Rollin Supine to/from Sit: 7 Sit to/from Stand: 6 Gait Mode of Locomotion: Walk Anticipated Mode of Locomotion: Walk Gait (FIM): 6 Distance (FIM): 3=150 ft Distance: 250' Gait Level of Assist: 6 Gait Assistive Device: FWW Balance Sitting Static: Good Sitting Dynamic: Good Standing Static: Good Standing Dynamic: Good Assessment/Needs Pt able to perform bed mobility indep. Pt amb with FWW 250' with modified independent. Pt reports that she is at the prior level of amb and transferring as she was prior. PT instructed pt to use FWW and move around ad marciano. PT will not be picking pt up on their services. Rehab Potential: Good PT Plan Problem List Problem List: Activity Tolerance Treatment/Plan Treatment Plan: Discontinue PT Treatment Plan: Other Treatment Duration: Jan 10, 2019 Frequency: 1 time per week Estimated Hrs Per Day: Other Patient and/or Family Agrees t: Yes Time/GCodes Time In: 1020 Time Out: 1030 Total Billed Treatment Time: 10 Total Billed Treatment 1 visit EVL 10 min NIKHIL MACIAS PT Jan 10, 2019 11:30
[2019-01-10 15:55] VITALS: BP 148/69
[2019-01-10] MEDS: LEVOFLOXACIN 750 MG TAB (LEVAQUIN) PO SCH (21:32)
[2019-01-10] MEDS: ACETAMINOPHEN 500 MG TAB (TYLENOL) PO PRN (21:32)
[2019-01-10 23:50] VITALS: BP 115/57
[2019-01-11] MEDS: RT-ALBUTEROL/IPRATROPIUM 3 ML (DUONEB) VIAL INH SCH ×2 (01:22→10:03)
[2019-01-11] MEDS: ACETAMINOPHEN 500 MG TAB (TYLENOL) PO PRN (03:58)
[2019-01-11 04:34] LABS: BASOPHILS % (AUTO) 0 % (0-10); EOSINOPHILS % (AUTO) 0 % (0-10); HEMATOCRIT 40 % (35-52); HEMOGLOBIN 12.8 G/DL (11.5-16.0); LYMPHOCYTES # (AUTO) 1.1 X 10^3 (1.0-4.0); LYMPHOCYTES % (AUTO) 18 % (12-44); MEAN CORPUSCULAR HEMOGLOBIN 29 PG (25-34); MEAN CORPUSCULAR HGB CONC 32 G/DL (32-36); MEAN CORPUSCULAR VOLUME 90 FL (80-99); MONOCYTES # (AUTO) 0.3 X 10^3 (0.0-1.0); MONOCYTES % (AUTO) 6 % (0-12); NEUTROPHILS # (AUTO) 4.4 X 10^3 (1.8-7.8); NEUTROPHILS % (AUTO) 76 % (42-75); PLATELET COUNT 167 10^3/uL (130-400); RED CELL DISTRIBUTION WIDTH 14.3 % (10.0-14.5); WHITE BLOOD COUNT 5.8 10^3/uL (4.3-11.0)
[2019-01-11 05:01] LABS: ALANINE AMINOTRANSFERASE 53 U/L (0-55); ALBUMIN 3.4 GM/DL (3.2-4.5); ALKALINE PHOSPHATASE 74 U/L (40-136); BILIRUBIN,TOTAL 0.4 MG/DL (0.1-1.0); BUN/CREATININE RATIO 21; CALCIUM 8.3 MG/DL (8.5-10.1); CARBON DIOXIDE 25 MMOL/L (21-32); CHLORIDE 103 MMOL/L (98-107); CREATININE SERUM 0.87 MG/DL (0.60-1.30); GFR ESTIMATED > 60; GLUCOSE 212 MG/DL (70-105); MAGNESIUM 1.6 MG/DL (1.8-2.4); PHOSPHORUS 3.2 MG/DL (2.3-4.7); POTASSIUM 3.1 MMOL/L (3.6-5.0); SODIUM 139 MMOL/L (135-145); TOTAL PROTEIN 5.8 GM/DL (6.4-8.2)
[2019-01-11] MEDS: predniSONE 10 MG TAB PO SCH (06:21)
[2019-01-11] MEDS: inSUlin ASPART (NovoLOG) 1 UNIT/0.01 ML (CHARGE PER UNIT) SC SCH ×3 (06:21→16:36)
--- NOTE | 2019-01-11 06:50 | Pulmonary Progress Note ---
Subjective Time Seen by a Provider: 06:46 Sepsis Event Evaluation Height, Weight, BMI Height: 5'4.00" Weight: 225lbs. 5.0oz. 102.149113ye; 35.7 BMI Method:Stated Focused Exam Lactate Level 01/08/19 08:34: Lactic Acid Level 3.14*H 01/08/19 10:43: Lactic Acid Level 2.19*H Exam Exam Vital Signs Date Time Temp Pulse Resp B/P (MAP) Pulse Ox O2 Delivery O2 Flow Rate FiO2 01/11/19 01:22 92 Room Air 01/10/19 23:50 98.5 68 20 115/57 (76) 94 Room Air 01/10/19 21:00 Room Air 01/10/19 19:05 92 Room Air 01/10/19 15:55 99.0 71 21 148/69 (95) 91 Room Air 01/10/19 10:33 93 Room Air 01/10/19 08:10 Room Air 01/10/19 08:00 98.0 77 20 131/75 (93) 92 Room Air I & O 01/11/19 07:00 Intake Total 1760 ml Balance 1760 ml Height & Weight Height: 5'4.00" Weight: 225lbs. 5.0oz. 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 I will see her in 2-3 wks for hosp f/u. DOROTHEA ALONSO DO Jan 11, 2019 06:50
[2019-01-11] MEDS ORDERED: KCL 10 MEQ TAB (MICRO K) PO NR (07:00)
[2019-01-11] MEDS ORDERED: MAGNESIUM OXIDE (MAG-OX)400 MG TAB PO NR (07:00)
--- NOTE | 2019-01-11 08:12 | Diagnostic Imaging Report ---
INDICATION: Chest pain and shortness of air. TIME OF EXAM: 07:41 a.m. Correlation is made with prior study from 01/09/2019. 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 The heart is mildly enlarged but stable. Lungs are fairly clear. No infiltrate or failure is detected. There may be some minimal linear atelectasis in the left lower lobe. No effusion or pneumothorax is seen. IMPRESSION: Left lower lobe subsegmental atelectasis. The study is otherwise unremarkable. Dictated by: Dictated on workstation # [id number]
[2019-01-11] MEDS ORDERED: KCL 20 MEQ TAB (K-DUR) PO NR (09:15)
[2019-01-11] MEDS: SUCRALFATE 1 GM (CARAFATE) TAB PO SCH ×2 (12:03→16:36)
--- NOTE | 2019-01-11 13:17 | Discharge Summary ---
Diagnosis/Chief Complaint Date of Admission Jan 07, 2019 at 23:10 Date of Discharge Discharge Diagnosis Problems/Diagnosis: (1) Acute and chronic respiratory failure with hypoxia Assessment & Plan: - Dr Carroll seeing patient, Will continue steroids/ antibiotics and breathing treatments, CXR clear, will titrate oxygen as tolerated 01/10: Patient titrated off oxygen but still short of breath, Continue Levaquin/ steroids and PRN breathing treatments, PT ordered today Status: Acute (2) Non-insulin dependent type 2 diabetes mellitus Assessment & Plan: - Hold home metformin, SSI 01/10: Add Levemir and continue SSI, A1c pending Status: Chronic (3) Epigastric abdominal pain Assessment & Plan: 01/10: Try GI cocktail Status: Acute (4) Elevated LFTs Assessment & Plan: - Will continue to monitor Status: Acute (5) COPD exacerbation Status: Acute (6) Acute bronchitis Qualifiers: Qualified Codes: J20.9 - Acute bronchitis, unspecified Status: Acute (7) UTI (urinary tract infection) Qualifiers: Qualified Codes: N30.00 - Acute cystitis without hematuria Status: Acute (8) DVT prophylaxis Assessment & Plan: - Lovenox Status: Acute Discharge Summary-Simple/Stand Consultations Discharge Physical Examination Allergies: Coded Allergies: Penicillins (Unverified Allergy, Unknown, ANAPHALYTIC SHOCK, 03/20/14) ceftriaxone (Unverified Allergy, Unknown, 02/03/13) ceftriaxone sodium (Verified Allergy, Unknown, 03/20/14) Vitals & I&Os Vital Sign - Last 12Hours Date Time Temp Pulse Resp B/P (MAP) Pulse Ox O2 Delivery O2 Flow Rate FiO2 01/11/19 10:03 92 Room Air 01/10/19 23:50 98.5 68 20 115/57 (76) 01/09/19 20:00 2.00 01/07/19 21:37 100 Intake and Output 01/10/19 23:59 Intake Total 1160 ml Balance 1160 ml Hospital Course See final discharge diagnosis. Discharge Instructions to patient/family Please see electronic discharge instructions given to patient. Discharge Medications Reviewed and agree with Discharge Medication list on patient's Discharge Instruction sheet Clinical Quality Measures DVT/VTE Risk/Contraindication: Risk Factor Score Per Nursin RFS Level Per Nursing on Admit: 4+=Very High LIN ARMSTRONG MD Jan 11, 2019 13:17
[2019-01-11] MEDS ORDERED: LEVO750T39 PO (13:22)
[2019-01-11] MEDS ORDERED: SUCR1TAB PO (13:22)
[2019-01-11] MEDS ORDERED: RT-ALBUINH INH (13:22)
[2019-01-11] MEDS ORDERED: PRD10T PO (13:22)
--- NOTE | 2019-01-11 13:24 | Discharge Instructions ---
Discharge [facility] Discharge Medications New, Converted or Re-Newed RX: Transmitted to Pharmacy New Medications: Levofloxacin (Levofloxacin) 750 Mg Tablet 750 MG PO HS, #5 TAB Prednisone (Prednisone) 10 Mg Tab 50 MG PO DAILY@0700, #30 TAB Sucralfate (Sucralfate) 1 Gm Tablet 1 GM PO ACHS, #90 TAB Continued Medications: Albuterol Sulfate (Ventolin Hfa) 1 Puff Puff 2 PUFF INH Q6H PRN for SHORTNESS OF BREATH, #1 INHALER (This prescription has been renewed) Atorvastatin Calcium (Atorvastatin Calcium) 40 Mg Tablet 40 MG PO DAILY, TAB Cetirizine HCl (Cetirizine HCl) 10 Mg Tablet 10 MG PO DAILY, TAB Citalopram Hydrobromide (Citalopram HBr) 10 Mg Tablet 10 MG PO DAILY, TAB Fesoterodine Fumarate (Toviaz) 8 Mg Tab.er.24h 8 MG PO DAILY, TAB Fluticasone/Salmeterol (Advair 500-50 Diskus) 1 Each Blst.w.dev 1 PUFF IH BID, EA Guaifenesin/Dextromethorphan (Guaifenesin Dm Syrup) 5 Ml Syrup 5 ML PO Q4H PRN for COUGH, ML Hydrocodone/Acetaminophen (Hydrocodon-Acetaminophn 10-325) 1 Each Tablet 1 TAB PO Q6H PRN for PAIN-MODERATE, TAB Levothyroxine Sodium (Levothyroxine Sodium) 175 Mcg Tablet 175 MCG PO DAILY, TAB Losartan Potassium (Losartan Potassium) 50 Mg Tablet 50 MG PO DAILY, TAB Metformin HCl (Metformin HCl) 500 Mg Tablet 1000 MG PO BID, TAB TAKES 2 (500MG) TABLETS Montelukast Sodium (Singulair) 10 Mg Tablet 10 MG PO DAILY, TAB Ranitidine HCl (Ranitidine HCl) 150 Mg Tablet 150 MG PO BID, TAB Ropinirole HCl (Ropinirole HCl) 4 Mg Tablet 4 MG PO DAILY, TAB Trospium Chloride (Trospium Chloride) 20 Mg Tablet 20 MG PO HS, TAB Discontinued Medications: Prednisone (Prednisone) 20 Mg Tab 40 MG PO DAILY for 5 Days, TAB 5 DAY SUPPLY FILLED 01-05-19 Patient Instructions Goal/Follow Up Appt: You have a followup with Arvind Mcduffie on Wednesday 4 @ 200 PM Patient Instructions: - Make sure to complete your antibiotic and steroids Activity & Diet Discharge Diet: ADA Diet, Cardiac Diet Orders-Post D/C & Referrals Pneu Vac Indicated: Yes Copy Copies To 1: Arvind LOPEZ APRN GAULT, HOLLY R MD Jan 11, 2019 13:24
--- NOTE | 2019-01-11 15:11 | NUR ---
home oxygen study pt walked as far as she could on room air no desaturation occured, pt doesnt need oxygen at this time
[2019-01-11 15:16] VITALS: BP 149/76
--- NOTE | 2019-01-13 11:44 | Physician Query Clarification ---
PQ-Uncertain Diagnosis Admission/Discharge Admission Date: Jan 07, 2019 at 23:10 Discharge Date: Jan 11, 2019 at 16:45 The medical record reflects the following clinical scenario: History/Risk Factors: Acute on chronic hypoxic respiratory failure, Pneumonia, acute bronchitis COPD AE Clinical Findings: T99.6, P 100, R 22, WBC 8.4, BP 115/76, lactic acid 3.18 Treatment: aggressive IVF, IV Levofloxacin Question: Is Severe sepsis a clinically valid diagnosis? Severe sepsis was documented in the H&P with no further documentation in the medical record. Please document a response below. PHYSICIAN RESPONSE Diagnosis clinically valid: Yes, Conditon resolved In responding to this query, please exercise your independent professional judgment. The purpose of this communication is to more accurately reflect the complexity of your patients condition. The fact that a question is asked does not imply that any particular answer is desired or expected. Thank you for your timely response to this clarification. Requestors name: Cordell THIS PHYSICIAN QUERY FORM IS A PERMANENT PART OF THE MEDICAL RECORD CORDELL VERGARA Jan 13, 2019 11:44 LIN ARMSTRONG MD Jan 22, 2019 11:46
[2019-01-18] MEDS ORDERED: PRED-501 PO (09:57)
[2019-01-18] MEDS ORDERED: IPRA3AMP31 IH (09:57)
== END 2019-01-11 16:45 | disposition home or self-care (01) | DRG 871 ==
LOC: EDUNIT# 21:34 → ER 21:35 → 4TH 23:10 → ICU 01-08 02:10 → 4TH 01-09 18:55
PROVIDERS: ADMIT Internal Medicine; ATTEND Internal Medicine
DX: A41.9 Sepsis, unspecified organism (principal); R65.20 Severe sepsis without septic shock; J44.0 Chronic obstructive pulmonary disease with (acute) lower respiratory infection; J18.9 Pneumonia, unspecified organism; J20.9 Acute bronchitis, unspecified; N30.00 Acute cystitis without hematuria; J96.20 Acute and chronic respiratory failure, unspecified whether with hypoxia or hypercapnia; E87.2 Acidosis; J44.1 Chronic obstructive pulmonary disease with (acute) exacerbation; E11.65 Type 2 diabetes mellitus with hyperglycemia; I25.10 Atherosclerotic heart disease of native coronary artery without angina pectoris; I10 Essential (primary) hypertension; E78.00 Pure hypercholesterolemia, unspecified; E03.9 Hypothyroidism, unspecified; E83.42 Hypomagnesemia; R79.89 Other specified abnormal findings of blood chemistry; F41.9 Anxiety disorder, unspecified; F32.9 Major depressive disorder, single episode, unspecified; M54.9 Dorsalgia, unspecified; M81.0 Age-related osteoporosis without current pathological fracture; M19.91 Primary osteoarthritis, unspecified site; E66.9 Obesity, unspecified; Z95.1 Presence of aortocoronary bypass graft; Z95.5 Presence of coronary angioplasty implant and graft; Z87.891 Personal history of nicotine dependence; Z87.11 Personal history of peptic ulcer disease; Z68.38 Body mass index [BMI] 38.0-38.9, adult; Z96.653 Presence of artificial knee joint, bilateral; Z79.84 Long term (current) use of oral hypoglycemic drugs
CPT/HCPCS: 36415; 36600; 71045; 71046; 76700; 80053; 81000; 82150; 82805; 82962; 83605; 83690; 83735; 84100; 84484; 85007; 85025; 85027; 87040; 87081; 87088; 87804; 90686; 93005; 93041; 94640; 94760; 94761; 96365; 96375

== ENCOUNTER 2019-01-13 14:13 | Inpatient (IN) | payer MEDICARE, MEDICAID ==
[~2019-01-13] VITALS: Ht 160 cm; Wt 96.6 kg
[~2019-01-13 14:13] MED LIST changes: +CITA10TA7 PO; +GUAI5SYR PO; +HYDR-3820 PO; +LEVO175T5 PO; +LEVO750T39 PO; +LOSA50TA63 PO; +METF-397 PO; +MONT10TA21 PO; +RANI150T11 PO; +ROPI4TAB5 PO; +RT-ALBUINH INH; +SUCR1TAB PO; +TROS20TA3 PO
[2019-01-13] MEDS ORDERED: ONDANSETRON 4 MG/2 ML (SDV) Z0FRAN ONE (14:17)
[2019-01-13] MEDS ORDERED: NS IV 1000 ML 1,000 ML IV STA (14:27)
--- OUTSIDE RECORDS SUMMARY | 2019-01-13 14:28 | XMS REPORT | Clinical Summary ---
Author Author [facility] Organization [facility] Address Unknown Phone Unavailable Care Team Providers Care Internet Researcher Name Role Phone Gely Landin MD Unavailable Mary Maynard RN Unavailable Unavailable Latha, [facility] PCP Source Comments Some departments are not documenting in the electronic medical record. If you do not see the information that you expected, contact Release of Information in the Health Information Management department at [phone] for further assistance in locating additional records.[facility] Allergies Comments Active Allergy Reactions Severity Noted [...] MEDICAID [place] [employer] xxxxxxxxxxx Medicaid [place]ITY [place]AN [place] Advance Directives Patient has advance care planning documents on file. For more information, please contact: [facility] [address] [place] [address]
[2019-01-13] MEDS ORDERED: ONDANSETRON 4 MG/2 ML (SDV) Z0FRAN IVP ONE (14:30)
[2019-01-13] MEDS ORDERED: inSUlin (REGULAR) HUMAN 1 UNIT/0.01 ML (CHARGE PER UNIT) SC STA (14:32)
[2019-01-13 14:37] LABS: BASOPHILS # (AUTO) 0.2 10^3/uL (0.0-0.1); BASOPHILS % (AUTO) 2 % (0-10); EOSINOPHILS % (AUTO) 0 % (0-10); HEMATOCRIT 46 % (35-52); LYMPHOCYTES # (AUTO) 1.8 X 10^3 (1.0-4.0); LYMPHOCYTES % (AUTO) 19 % (12-44); MEAN CORPUSCULAR HEMOGLOBIN 29 PG (25-34); MEAN CORPUSCULAR HGB CONC 33 G/DL (32-36); MEAN CORPUSCULAR VOLUME 89 FL (80-99); MEAN PLATELET VOLUME 9.7 FL (7.4-10.4); MONOCYTES # (AUTO) 0.4 X 10^3 (0.0-1.0); MONOCYTES % (AUTO) 5 % (0-12); NEUTROPHILS % (AUTO) 75 % (42-75); PLATELET COUNT 236 10^3/uL (130-400); RED CELL DISTRIBUTION WIDTH 13.9 % (10.0-14.5); WHITE BLOOD COUNT 9.3 10^3/uL (4.3-11.0)
[2019-01-13 14:41] LABS: INR 1.1 (0.8-1.4); PROTHROMBIN TIME PATIENT 13.8 SEC (12.2-14.7)
[2019-01-13 14:49] LABS: ALANINE AMINOTRANSFERASE 75 U/L (0-55); ALBUMIN 3.6 GM/DL (3.2-4.5); ALKALINE PHOSPHATASE 61 U/L (40-136); BILIRUBIN,TOTAL 0.7 MG/DL (0.1-1.0); BUN/CREATININE RATIO 12; CALCIUM 8.3 MG/DL (8.5-10.1); CARBON DIOXIDE 26 MMOL/L (21-32); CHLORIDE 99 MMOL/L (98-107); CREATININE SERUM 1.29 MG/DL (0.60-1.30); GFR ESTIMATED 41; POTASSIUM 3.7 MMOL/L (3.6-5.0); SODIUM 138 MMOL/L (135-145); TOTAL PROTEIN 6.4 GM/DL (6.4-8.2)
--- NOTE | 2019-01-13 14:49 | NUR ---
LAB CONTACTED FOR BLOOD CX AND LACTIC.
[2019-01-13 14:52] LABS: GLUCOSE 403 MG/DL (70-105)
[2019-01-13] MEDS ORDERED: NS IV 1000 ML 1,000 ML ONE ×2 (14:52→15:52)
--- OUTSIDE RECORDS SUMMARY | 2019-01-13 14:58 | XMS REPORT | Continuity of Care Document ---
Author Author [facility] Address Unknown Phone Unavailable Allergies Active Description Code Type Severity Reaction Onset Reported/Identified Relationship to Patient Clinical Status Yes ceftriaxone [id number] Drug Allergy Unknown N/A 02/03/2013 Yes Rocephin Drug Allergy N/A N/A 02/10/2013 Yes Rocephin Drug Allergy 02/10/2013 Yes Penicillins Drug Allergy N/A N/A 03/30/2013 Yes NSAIDS (Non-Steroidal Anti-Inflammatory Drug) Drug Allergy N/A N/A 2012 Yes ceftriaxone sodium [id number] Drug Allergy Unknown N/A 03/20/2014 Yes Penicillins [id number] Drug Allergy Unknown ANAPHALYTIC JORGITO 03/20/2014 Medications [...] NOS 05/12/2011 Ot 414.01 CORONARY A[address]CLEROSIS OF [address] [place] CORON 05/12/2011 Ot 414.02 CORON ATHEROSCLEROSIS AUTOLOG VEIN BYPAS 05/12/2011 Ot 440.0 AORTIC ATHEROSCLEROSIS 05/12/2011 Ot [address] [place] ARTERIES EXTREMIT 05/12/2011 Ot 794.30 ABN CARDIOVASC [...] HYPERTENSION ( SYSTEMIC) 09/29/2011 790.29 Hyperglycemia 09/29/2011 PTARICIA OFF TRACK BETTING MANAGER, NALINI T 272.4 HYPERLIPIDEMIA 09/29/2011 PATRICIA OFF TRACK BETTING MANAGER, NALINI T 401.9 HYPERTENSION (SYSTEMIC) 09/29/2011 PATRICIA OFF TRACK BETTING MANAGER, NALINI T 790.29 Hyperglycemia 09/29/2011 PATRICIA OFF TRACK BETTING MANAGER, NALINI T 272.4 HYPERLIPIDEMIA 09/29/2011 PATRICIA OFF TRACK BETTING MANAGER, NALINI T 401.9 HYPERTENSION (SYSTEMIC) 09/29/2011 PATRICIA OFF TRACK BETTING MANAGER, NALINI T 790.29 Hyperglycemia 09/29/2011 272.4 HYPERLIPIDEMIA [...] GOMEZ APRN T 272.4 HYPERLIPIDEMIA 09/29/2011 PATRICIA OFF TRACK BETTING MANAGER, NALINI T 401.9 HYPERTENSION (SYSTEMIC) 09/29/2011 PATRICIA OFF TRACK BETTING MANAGER, NALINI T 790.29 Hyperglycemia 09/29/2011 PATRICIA OFF TRACK BETTING MANAGER, NALINI T 272.4 HYPERLIPIDEMIA 09/29/2011 PATRICIA OFF TRACK BETTING MANAGER NALINI T 401.9 HYPERTENSION (SYSTEMIC) 09/29/2011 PATRICIA REDMOND NALINI T 790.29 Hyperglycemia 09/29/2011 PATRICIA OFF TRACK BETTING MANAGER, NALINI T 272.4 HYPERLIPIDEMIA 09/29/2011 PATRICIA OFF TRACK BETTING MANAGER, NALINI T 401.9 HYPERTENSION (SYSTEMIC) 09/29/2011 PATRICIA [...] GOMEZ APRN T 790.29 Hyperglycemia 09/29/2011 LIU OFF TRACK BETTING MANAGER, SHIN R 272.4 HYPERLIPIDEMIA 09/29/2011 LIU OFF TRACK BETTING MANAGER, SHIN R 401.9 HYPERTENSION (SYSTEMIC) 09/29/2011 LIU OFF TRACK BETTING MANAGER, SHIN R 790.29 Hyperglycemia 09/29/2011 LIU OFF TRACK BETTING MANAGER, SHIN R 272.4 HYPERLIPIDEMIA 09/29/2011 LIU OFF TRACK BETTING MANAGER, SHIN R 401.9 HYPERTENSION (SYSTEMIC) 09/29/2011 LIU OFF TRACK BETTING MANAGER, SHIN R 790.29 Hyperglycemia 09/29/2011 NALINI GOMEZ APRN T 272.4 HYPERLIPIDEMIA 09/29/2011 PATRICIA CONTINNALINI T 401.9 HYPERTENSION (SYSTEMIC) 09/29/2011 NALINI GOMEZ APRN T 790.29 Hyperglycemia 09/29/2011 PAMELLA OFF TRACK BETTING MANAGER, SHAINA S 272.4 HYPERLIPIDEMIA 09/29/2011 PAMELLA OFF TRACK BETTING MANAGER, SHAINA S 401.9 HYPERTENSION (SYSTEMIC) 09/29/2011 PAMELLA OFF TRACK BETTING MANAGER, SHAINA S 790.29 Hyperglycemia 09/29/2011 NALINI GOMEZ APRN T 272.4 HYPERLIPIDEMIA 09/29/2011 PATRICIA CONTINNALINI T 401.9 HYPERTENSION (SYSTEMIC) 09/29/2011 NALINI GOMEZ APRN T 790.29 Hyperglycemia 09/29/2011 PAMELLA OFF TRACK BETTING MANAGER, SHAINA S 272.4 HYPERLIPIDEMIA 09/29/2011 PAMELLA OFF TRACK BETTING MANAGER, SHAINA S 401.9 HYPERTENSION (SYSTEMIC) 09/29/2011 PAMELLA OFF TRACK BETTING MANAGER, SHAINA S 790.29 Hyperglycemia 11/04/2011 724.5 BACK [...] R 729.5 Pain In Limb 11/04/2011 LIU OFF TRACK BETTING MANAGER, SHIN R 788.30 URINARY INCONTINENCE UNSPECIFIED 11/04/2011 LIU OFF TRACK BETTING MANAGER, SHIN R 724.5 BACK PAIN, GENERAL 11/04/2011 ALEXA OFF TRACK BETTING MANAGER, SHIN R 729.5 Pain In Limb 11/04/2011 ALEXA OFF TRACK BETTING MANAGER, SHIN R 788.30 URINARY INCONTINENCE UNSPECIFIED 11/04/2011 [...] PALOMINO MD 625.6 STRESS INCONTINENCE FEMALE 11/18/2011 DPUREE DO KUSHAL K 493.90 ASTHMA UNSPECIFIED 11/18/2011 [...] APRN 625.6 STRESS INCONTINENCE FEMALE 11/18/2011 LIU OFF TRACK BETTING MANAGER, SHIN R 493.90 ASTHMA UNSPECIFIED 11/18/2011 ALEXA [...] DO, KUSHAL K 726.71 Tendonitis Achilles 01/01/2012 DUPREE DO, KUSHAL K 726.91 EXOSTOSIS 01/01/2012 NALINI GOMEZ APRN 355.5 TARSUS TUNNEL SYNDROME 01/01/2012 NALINI OGMEZ APRN 726.71 Tendonitis Achilles 01/01/2012 NALINI GOMEZ [...] S 355.5 TARSUS TUNNEL SYNDROME 01/01/2012 PAMELLA OFF TRACK BETTING MANAGER, SHAINA S 726.71 Tendonitis Achilles 01/01/2012 PAMELLA [...] BRONCHITIS, ACUTE 01/08/2012 466.0 BRONCHITIS, ACUTE 01/08/2012 BUFFY PALOMINO MD [...] APRN 466.0 BRONCHITIS, ACUTE 01/08/2012 PAMELLA REDMOND SHAINA S 466.0 BRONCHITIS, ACUTE 02/04/2012 Ot 272.4 HYPERLIPIDEMIA NEC/NOS 02/04/2012 Ot 401.9 HYPERTENSION NOS 02/04/2012 Ot 414.01 CORONARY ATHEROSCLEROSIS OF [facility] [facility] [place] CORON 02/04/2012 Ot [address] [place] ARTER EXTREM W INTERMIT 02/04/2012 Ot V45.81 [...] 780.09 Alteration Of Consciousness Other 06/13/2012 NALINI GOMZE APRN 780.09 Alteration Of Consciousness Other 06/13/2012 [...] Of Pleasure From Usual Activities (anhedonia) 06/14/2012 BUFYF PALOMINO MD 244.9 HYPOTHYROIDISM 06/14/2012 BUFFY PALOMINO [...] S 458.0 ORTHOSTATIC HYPOTENSION IDIOPATHIC 06/14/2012 PAMELLA OFF TRACK BETTING MANAGER, SHAINA S 780.99 Loss Of Pleasure From [...] GOMEZ APRN T 786.2 Cough 09/09/2012 NALINI GMOEZ APRN T 465.9 Upper Respiratory Infection 09/09/2012 [...] 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 03/24/2013 DC CALHOUN MD Ot 788.30 UNSPECIFIED URINARY INCONTINENCE 05/23/2013 [...] APRN 787.01 NAUSEA WITH VOMITING 06/03/2013 PATRICIA OFF TRACK BETTING MANAGER, NALINI T 787.01 NAUSEA WITH VOMITING 06/03/2013 [...] PINEDA MD Ot 414.01 CORONARY ATHEROSCLEROSIS OF [address] [facility] CORON 08/23/2013 LELIA PINEDA MD Ot 496 [...] MARQUIS Ot 786.2 COUGH 01/20/2014 DEEJAY FELIPE OFF TRACK BETTING MANAGER Ot 490 BRONCHITIS NOS 01/20/2014 DEEJAY FELIPE [...] GOMEZ APRN T 782.1 RASH 01/29/2014 ALEXA OFF TRACK BETTING MANAGER, SHIN R 078.10 WARTS 01/29/2014 ALEXA OFF TRACK BETTING MANAGER, SHIN R 250.00 DIABETES II CONTROLLED (UNCOMPLICATED) 01/29/2014 ALEXA OFF TRACK BETTING MANAGER, SHIN R 466.0 BRONCHITIS, ACUTE 01/29/2014 ALEXA OFF TRACK BETTING MANAGER, SHIN R 782.1 RASH 01/29/2014 ALEXA OFF TRACK BETTING MANAGER, SHIN R 078.10 WARTS 01/29/2014 ALEXA OFF TRACK BETTING MANAGER, SHIN R 250.00 DIABETES II CONTROLLED (UNCOMPLICATED) [...] APRN T 078.19 WARTS, COMMON 02/13/2014 ALEXA OFF TRACK BETTING MANAGER, SHIN R 078.19 WARTS, COMMON 02/13/2014 ALEXA OFF TRACK BETTING MANAGER, SHIN R 078.19 WARTS, COMMON 02/13/2014 NALINI [...] ARIZMENDI DO Ot 414.01 CORONARY ATHEROSCLEROSIS OF [facility] [place] CORON 03/31/2014 FLOR ARIZMENDI DO Ot 493.90 [...] TYPE II OR UNSPEC TY 05/16/2015 LELIA PINEDA MD Ot 272.4 HYPERLIPIDEMIA NEC/NOS 05/16/2015 LELIA PINEDA MD Ot 278.00 OBESITY, NOS 05/16/2015 LELIA PINEDA MD Ot 401.9 HYPERTENSION NOS 05/16/2015 LELIA PINEDA MD Ot 414.01 CORONARY ATHEROSCLEROSIS OF [facility] [place] CORON 05/16/2015 LELIA PINEDA MD Ot 496 [...] DC Vick Ot 596.51 12/10/2015 LJ DANIEL, DC Vick Ot V72.63 12/10/2015 LJ DANIEL, DC [...] J Ot 786.50 12/10/2015 MIRIAM DANIEL, LELIA Brewer Ot 272.4 12/10/2015 MIRIAM DANIEL, LELIA J [...] KYLEIGH URBANO FLOR [place] Ot 719.46 12/17/2015 FLRO ARIZMENDI DO [place] Ot V72.84 12/17/2015 LJ [...] TYPE VESSEL, NATIV 04/05/2016 Ot [address] [place] ARTER EXTREM W INTERMIT 04/05/2016 Ot V64.3 NO PROC FOR REASONS NEC 04/05/2016 Ot 401.9 HYPERTENSION NOS 04/05/2016 Ot 414.01 CORONARY ATHEROSCLEROSIS OF [facility] [place] CORON 04/05/2016 Ot 440.[address] [place] ARTERIES EXTREMIT 04/05/2016 Ot V72.63 PRE- PROCEDURAL LABORATORY EXAMINATION 04/05/2016 Ot V72.81 EXAM-PRE- OPERATIVE CARDIOVASCULAR 04/05/2016 Ot 726.73 CALCANEAL SPUR 04/05/2016 Ot V72.83 EXAM PRE- OPERATIVE NEC 04/05/2016 Ot V74.8 SCREEN- BACTERIAL DIS NEC 04/05/2016 ELIZABETH DANIEL, LISSA Tomlinson Ot 250.00 DIAB ALLY WO COMPL, TYPE II OR UNSPEC TY 04/05/2016 MIRIAM DANIEL, LELIA Brewer Ot 414.01 CORONARY ATHEROSCLEROSIS OF [facility] [place] CORON 04/05/2016 MIRIAM DANIEL, LELIA Brewer Ot [...] NOS 04/05/2016 Ot 414.01 CORONARY ATHEROSCLEROSIS OF [facility] [place] CORON 04/05/2016 FLOR ARIZMENDI DO Ot 719.46 [...] DIS NOS 04/05/2016 DC CALHOUN MD Ot 593.9 [...] SKIN, INITIA 04/05/2016 PANCHO MARQUIS Ot Y92.[address] IN [place] [facility] ([facility] 04/05/2016 PANCHO MARQUIS Ot Y99.8 OTHER [...] MD Ot 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 07/14/2016 LELIA PINEDA MD Ot R07.89 OTHER CHEST PAIN 07/23/2016 LELIA PINEDA MD Ot E78.5 HYPERLIPIDEMIA, UNSPECIFIED 07/23/2016 LELIA PINDEA MD Ot I10 ESSENTIAL (PRIMARY) HYPERTENSION 07/23/2016 LELIA PINEDA MD Ot 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 07/23/2016 LELIA PINEDA MD Ot R07.89 OTHER CHEST PAIN 11/27/2016 LELIA PINEDA MD Ot E78.2 MIXED HYPERLIPIDEMIA 11/27/2016 LELIA PINEDA MD Ot I10 ESSENTIAL (PRIMARY) HYPERTENSION 11/27/2016 LELIA PINEDA MD Ot 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 11/27/2016 LELIA PINEDA MD Ot K27.9 [facility], SITE UNSP, UNSP AC OR CHR 11/27/2016 LELIA PINEDA MD Ot R07.9 CHEST PAIN, UNSPECIFIED 11/30/2016 Ot 272.4 HYPERLIPIDEMIA NEC/NOS 11/30/2016 Ot 401.9 HYPERTENSION NOS 11/30/2016 Ot 414.00 CORON ATHEROSCLER NOS TYPE VESSEL, NATIV 11/30/2016 Ot 401.9 HYPERTENSION NOS 11/30/2016 Ot 414.00 CORON ATHEROSCLER NOS TYPE VESSEL, NATIV 11/30/2016 Ot 440[address] [place] ARTER EXTREM W INTERMIT 11/30/2016 Ot V64.3 NO PROC FOR REASONS NEC 11/30/2016 Ot 401.9 HYPERTENSION NOS 11/30/2016 Ot 414.01 CORONARY ATHEROSCLEROSIS OF [facility] [facility] [place] CORON 11/30/2016 Ot 440.[address] [place] ARTERIES EXTREMIT 11/30/2016 Ot V72.63 PRE- PROCEDURAL LABORATORY EXAMINATION 11/30/2016 Ot V72.81 EXAM-PRE- OPERATIVE CARDIOVASCULAR 11/30/2016 Ot 726.73 CALCANEAL SPUR 11/30/2016 Ot V72.83 EXAM PRE- OPERATIVE NEC 11/30/2016 Ot V74.8 SCREEN- BACTERIAL DIS NEC 11/30/2016 ELIZABETH DANIEL, LISSA Tomlinson Ot 250.00 DIAB ALLY WO COMPL, TYPE II OR UNSPEC TY 11/30/2016 MIRIAM DANIEL, LELIA Brewer Ot 414.01 CORONARY ATHEROSCLEROSIS OF [facility] CORON 11/30/2016 LELIA PINEDA MD Ot 786.09 RESPIRATORY ABNORM NEC 11/30/2016 LELIA PINEDA MD Ot 786.50 CHEST PAIN NOS 11/30/2016 Ot 599.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 11/30/2016 Ot 788.30 UNSPECIFIED URINARY INCONTINENCE 11/30/2016 Ot V72.83 EXAM PRE- OPERATIVE NEC 11/30/2016 Ot V74.8 SCREEN- BACTERIAL DIS NEC 11/30/2016 Ot 272.4 HYPERLIPIDEMIA NEC/NOS 11/30/2016 Ot 401.9 HYPERTENSION NOS 11/30/2016 Ot 414.01 CORONARY ATHEROSCLEROSIS OF [facility] CORON 11/30/2016 FLOR ARIZMENDI DO Ot 719.46 [...] MD Ot 786.50 CHEST PAIN NOS 11/30/2016 CARRIE FORTUNE Ot 272.4 HYPERLIPIDEMIA NEC/NOS 11/30/2016 FLOR MARVIN MD Ot T84.59XA INFECT/INFLM REACTION DUE TO OTH INTERNA 11/30/2016 FLOR MARVIN MD Ot T84.59XA INFECT/INFLM REACTION DUE TO OTH INTERNA 11/30/2016 LELIA PINEDA MD Ot E78.5 HYPERLIPIDEMIA, UNSPECIFIED 11/30/2016 LELIA PINEDA MD Ot I10 ESSENTIAL (PRIMARY) HYPERTENSION 11/30/2016 LELIA PINEDA MD Ot 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 11/30/2016 LELIA PINEDA MD Ot R07.89 OTHER CHEST PAIN 11/30/2016 LELIA PINEDA MD Ot E78.2 MIXED HYPERLIPIDEMIA 11/30/2016 LELIA PINEDA MD Ot I10 ESSENTIAL (PRIMARY) HYPERTENSION 11/30/2016 LELIA PINEDA MD Ot 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 11/30/2016 LELIA PINEDA MD Ot K27.9 PEPTIC ULC, SITE UNSP, UNSP AC OR CHR 11/30/2016 LELIA PINEDA MD Ot R07.9 CHEST PAIN, UNSPECIFIED 11/30/2016 LELIA PINEDA MD Ot E78.2 MIXED HYPERLIPIDEMIA 11/30/2016 MIRIAM MD, BASHAR J Ot I10 ESSENTIAL (PRIMARY) HYPERTENSION 11/30/2016 LELIA PINEDA MD Ot 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 11/30/2016 LELIA PINEDA MD Ot K27.9 PEPTIC ULC, SITE UNSP, UNSP AC OR CHR 11/30/2016 LELIA PINEDA MD Ot R07.9 CHEST PAIN, UNSPECIFIED 12/01/2016 LELIA PINEDA MD Ot E78.2 MIXED HYPERLIPIDEMIA 12/01/2016 LELIA PINEDA MD Ot I10 ESSENTIAL (PRIMARY) HYPERTENSION 12/01/2016 LELIA PINEDA MD Ot 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 12/01/2016 LELIA PINEDA MD Ot K27.9 PEPTIC ULC, SITE UNSP, UNSP AC OR CHR 12/01/2016 LELIA PINEDA MD Ot R07.9 CHEST PAIN, UNSPECIFIED 12/04/2016 LELIA PINEDA MD Ot E78.2 MIXED HYPERLIPIDEMIA 12/04/2016 LELIA PINEDA MD Ot I10 ESSENTIAL (PRIMARY) HYPERTENSION 12/04/2016 LELIA PINEDA MD Ot 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 12/04/2016 LELIA PINEDA MD Ot K27.9 PEPTIC ULC, SITE UNSP, UNSP AC OR CHR 12/04/2016 LELIA PINEDA MD Ot R07.9 CHEST PAIN, UNSPECIFIED 12/11/2016 LELIA PINEAD MD Ot E78.2 MIXED HYPERLIPIDEMIA 12/11/2016 LELIA PINEDA MD Ot I10 ESSENTIAL (PRIMARY) HYPERTENSION 12/11/2016 LELIA PINEDA MD Ot 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 12/11/2016 LELIA PINEDA MD Ot K27.9 PEPTIC ULC, SITE UNSP, UNSP AC OR CHR 12/11/2016 LELIA PINEDA MD Ot R07.9 CHEST PAIN, UNSPECIFIED 12/16/2016 LELIA PINEDA MD Ot E78.2 MIXED HYPERLIPIDEMIA 12/16/2016 LELIA PINEDA MD Ot I10 ESSENTIAL (PRIMARY) HYPERTENSION 12/16/2016 LELIA PINEDA MD Ot 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 12/16/2016 LELIA PINEDA MD Ot K27.9 PEPTIC ULC, SITE UNSP, UNSP AC OR CHR 12/16/2016 LELIA PINEDA MD Ot R07.9 CHEST PAIN, UNSPECIFIED 04/05/2017 Ot 401.9 HYPERTENSION NOS 04/05/2017 Ot 414.00 CORON ATHEROSCLER NOS TYPE VESSEL, NATIV 04/05/[address] [place] ARTER EXTREM W INTERMIT 04/05/2017 Ot V64.3 NO PROC FOR REASONS NEC 04/05/2017 Ot 401.9 HYPERTENSION NOS 04/05/2017 Ot 414.01 CORONARY ATHEROSCLEROSIS OF [facility] [facility] CORON 04/05/2017 Ot 440[address] [place] ARTERIES EXTREMIT 04/05/2017 Ot V72.63 PRE- PROCEDURAL LABORATORY EXAMINATION 04/05/2017 Ot V72.81 EXAM-PRE- OPERATIVE CARDIOVASCULAR 04/05/2017 Ot 726.73 CALCANEAL SPUR 04/05/2017 Ot V72.83 EXAM PRE- OPERATIVE NEC 04/05/2017 Ot V74.8 SCREEN- BACTERIAL DIS NEC 04/05/2017 ELIZABETH DANIEL, LISSA Tomlinson Ot 250.00 DIAB ALLY WO COMPL, TYPE II OR UNSPEC TY 04/05/2017 LELIA PINEDA MD Ot 414.01 CORONARY ATHEROSCLEROSIS OF [place] CORON 04/05/2017 LELIA PINEDA MD Ot 786.09 RESPIRATORY ABNORM NEC 04/05/2017 LELIA PINEDA MD Ot 786.50 CHEST PAIN NOS 04/05/2017 Ot 599.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 04/05/2017 Ot 788.30 UNSPECIFIED URINARY INCONTINENCE 04/05/2017 Ot V72.83 EXAM PRE- OPERATIVE NEC 04/05/2017 Ot V74.8 SCREEN- BACTERIAL DIS NEC 04/05/2017 Ot 272.4 HYPERLIPIDEMIA NEC/NOS 04/05/2017 Ot 401.9 HYPERTENSION NOS 04/05/2017 Ot 414.01 CORONARY ATHEROSCLEROSIS OF [facility] [facility] CORON 04/05/2017 FLOR ARIZMENDI DO Ot 719.46 JOINT PAIN-L/LEG 04/05/2017 DC CALHOUN MD Ot 596.51 HYPERTONICITY OF BLADDER 04/05/2017 DC CALHOUN MD Ot V72.63 PRE-PROCEDURAL LABORATORY EXAMINATION 04/05/2017 DC CALHOUN MD Ot V72.84 EXAM PRE-OPERATIVE NOS 04/05/2017 DC CALHOUN MD Ot V74.8 SCREEN-BACTERIAL DIS NEC 04/05/2017 KYLEIGH FLOR aHyward Ot 719.46 JOINT PAIN-L/LEG 04/05/2017 KYLEIGH FLOR [...] Ot I10 ESSENTIAL (PRIMARY) HYPERTENSION 04/05/2017 LELIA IPNEDA MD Ot 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 04/05/2017 LELIA PINEDA MD Ot R07.89 OTHER CHEST PAIN 04/05/2017 LELIA PINEDA MD Ot E78.2 MIXED HYPERLIPIDEMIA 04/05/2017 LELIA PINEDA MD Ot I10 ESSENTIAL (PRIMARY) HYPERTENSION 04/05/2017 LELIA PINEDA MD Ot 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 04/05/2017 LELIA PINEDA MD Ot K27.9 PEPTIC ULC, SITE UNSP, UNSP AC OR CHR 04/05/2017 LELIA PINEDA MD Ot R07.9 CHEST PAIN, UNSPECIFIED 04/05/2017 LELIA PINEDA MD Ot E78.2 MIXED HYPERLIPIDEMIA 04/05/2017 LELIA PINEDA MD Ot I10 ESSENTIAL (PRIMARY) HYPERTENSION 04/05/2017 LELIA PINEDA MD Ot 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 04/05/2017 LELIA PINEDA MD Ot K27.9 PEPTIC ULC, SITE UNSP, UNSP AC OR CHR 04/05/2017 LELIA PINEDA MD Ot R07.9 CHEST PAIN, UNSPECIFIED 04/05/2017 DEEJAY FELIPE APRN Ot M25.552 PAIN IN LEFT HIP 04/05/2017 DEEJAY FELIPE APRN Ot N39.0 URINARY TRACT INFECTION, SITE NOT SPECIF 04/05/2017 DEEJAY FELIPE OFF TRACK BETTING MANAGER Ot Z79.82 COPPER TAPPER (CURRENT) USE OF ASPIRIN 04/05/2017 DEEJAY FELIPE APRN Ot Z79.899 OTHER COPPER TAPPER (CURRENT) DRUG THERAPY 04/07/2017 DEEJAY FELIPE APRN Ot M25.552 PAIN IN LEFT HIP 04/07/2017 DEEJAY FELIPE APRN Ot N39.0 URINARY TRACT INFECTION, SITE NOT SPECIF 04/07/2017 DEEJAY FELIPE OFF TRACK BETTING MANAGER Ot Z79.82 COPPER TAPPER (CURRENT) USE OF ASPIRIN 04/07/2017 DEEJAY FELIPE OFF TRACK BETTING MANAGER Ot Z79.899 OTHER ASSISTED (CURRENT) DRUG THERAPY 05/05/2017 VU CASTELLON DO Ot E11.9 TYPE 2 DIABETES MELLITUS WITHOUT COMPLIC 05/05/2017 VU CASTELLON DO Ot G89.29 OTHER CHRONIC PAIN 05/05/2017 VU CASTELLON DO Ot 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 05/05/2017 VU CASETLLON DO Ot M17.0 BILATERAL PRIMARY OSTEOARTHRITIS OF KNEE 05/05/2017 RAVINDER VU URBANO Ot M54.5 LOW BACK PAIN 05/05/2017 RAVINDER VU URBANO Ot Z79.82 ASSISTED (CURRENT) USE OF ASPIRIN 05/05/2017 RAVINDER VU [...] URBANO Ot 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 05/11/2017 RAVINDER VU URBANO Ot M17.0 BILATERAL PRIMARY OSTEOARTHRITIS OF KNEE 05/11/2017 RAVINDER VU URBANO Ot M54.5 LOW BACK PAIN 05/11/2017 RAVINDER VU URBANO Ot Z79.82 COPPER TAPPER (CURRENT) USE OF ASPIRIN 05/11/2017 RAVINDER VU [...] MD Ot 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 08/10/2017 LELIA PINEDA MD Ot I50.9 [...] DEEJAY FELIPE APRN Ot Y92.002 BATHRM OF RUST NON-INSTITUT RESDNCE SNGL 08/10/2017 DEEJAY FELIPE APRN Ot Z79.82 COPPER TAPPER (CURRENT) USE OF ASPIRIN 08/10/2017 DEEJAY FELIPE [...] DEEJAY FELIPE APRN Ot Y92.002 BATHRM OF RUST NON-INSTITUT RESDNCE SNGL 08/12/2017 DEEJAY FELIPE APRN Ot Z79.82 COPPER TAPPER (CURRENT) USE OF ASPIRIN 08/12/2017 DEEJAY FELIPE [...] MD Ot 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 11/17/2017 LELIA PINEDA MD Ot K27.9 PEPTIC ULC, SITE UNS, [place] AC OR CHR 11/17/2017 LELIA PINEDA MD Ot R07.9 CHEST PAIN, UNSPECIFIED 11/17/2017 LELIA PINEDA MD Ot E78.2 MIXED HYPERLIPIDEMIA 11/17/2017 LELIA PINEDA MD Ot I10 ESSENTIAL (PRIMARY) HYPERTENSION 11/17/2017 LELIA PINEDA MD Ot 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 11/17/2017 LELIA PINEDA MD Ot K27.9 PEPTIC ULC, SITE UNSP, UNSP AC OR CHR 11/17/2017 LELIA PINEDA MD Ot R07.9 CHEST PAIN, UNSPECIFIED 11/17/2017 LELIA PINEDA MD Ot E11.9 TYPE 2 DIABETES MELLITUS WITHOUT COMPLIC 11/17/2017 LELIA PINEDA MD Ot E78.2 MIXED HYPERLIPIDEMIA 11/17/2017 LELIA PINEDA MD Ot I10 ESSENTIAL (PRIMARY) HYPERTENSION 11/17/2017 LELIA PINEDA MD Ot 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 11/17/2017 LELIA PINEDA MD Ot I50.9 HEART FAILURE, UNSPECIFIED 11/17/2017 LELIA PINEDA MD Ot R07.89 OTHER CHEST PAIN 11/17/2017 Ot 726.73 CALCANEAL SPUR 11/17/2017 Ot V72.83 EXAM PRE- OPERATIVE NEC 11/17/2017 Ot V74.8 SCREEN- BACTERIAL DIS NEC 11/17/2017 ELIZABETH DANIEL, LISSA Tomlinson Ot 250.00 DIAB ALLY WO COMPL, TYPE II OR UNSPEC TY 11/17/2017 LELIA PINEDA MD Ot 414.01 CORONARY ATHEROSCLEROSIS OF [place] CORON 11/17/2017 LELIA PINEDA MD Ot 786.09 RESPIRATORY ABNORM NEC 11/17/2017 LELIA PINEDA MD Ot 786.50 CHEST PAIN NOS 11/17/2017 Ot 599.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 11/17/2017 Ot 788.30 UNSPECIFIED URINARY INCONTINENCE 11/17/2017 Ot V72.83 EXAM PRE- OPERATIVE NEC 11/17/2017 Ot V74.8 SCREEN- BACTERIAL DIS NEC 11/17/2017 Ot 272.4 HYPERLIPIDEMIA NEC/NOS 11/17/2017 Ot 401.9 HYPERTENSION NOS 11/17/2017 Ot 414.01 CORONARY A[address]OSCLEROSIS OF [address] [place] CORON 11/17/2017 FLOR ARIZMENDI DO Ot 719.46 [...] MD Ot 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 11/17/2017 LELIA PINEDA MD Ot R07.89 OTHER CHEST PAIN 11/17/2017 LELIA PINEDA MD Ot E78.2 MIXED HYPERLIPIDEMIA 11/17/2017 LELIA PINEDA MD Ot I10 ESSENTIAL (PRIMARY) HYPERTENSION 11/17/2017 LELIA PINEDA MD Ot 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 11/17/2017 LELIA PINEDA MD Ot K27.9 PEPTIC ULC, SITE UNSP, UNSP AC OR CHR 11/17/2017 LELIA PINEDA MD Ot R07.9 CHEST PAIN, UNSPECIFIED 11/17/2017 LELIA PINEDA MD Ot E78.2 MIXED HYPERLIPIDEMIA 11/17/2017 LELIA PINEDA MD Ot I10 ESSENTIAL (PRIMARY) HYPERTENSION 11/17/2017 LELIA PINEDA MD Ot 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 11/17/2017 LELIA PINEDA MD Ot K27.9 PEPTIC ULC, SITE UNSP, UNSP AC OR CHR 11/17/2017 LELIA PINEDA MD Ot R07.9 CHEST PAIN, UNSPECIFIED 11/17/2017 LELIA PINEDA MD Ot E11.9 TYPE 2 DIABETES MELLITUS WITHOUT COMPLIC 11/17/2017 LELIA PINEDA MD Ot E78.2 MIXED HYPERLIPIDEMIA 11/17/2017 LELIA PINEDA MD Ot I10 ESSENTIAL (PRIMARY) HYPERTENSION 11/17/2017 LELIA PINEDA MD Ot 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 11/17/2017 LELIA PINEDA MD Ot I50.9 HEART FAILURE, UNSPECIFIED 11/17/2017 LELIA PINEDA MD Ot R07.89 OTHER CHEST PAIN 12/24/2017 LELIA PINEDA MD Ot E11.9 TYPE 2 DIABETES MELLITUS WITHOUT COMPLIC 12/24/2017 LELIA PINEDA MD Ot E78.2 MIXED HYPERLIPIDEMIA 12/24/2017 LELIA PINEDA MD Ot I11.0 HYPERTENSIVE HEART DISEASE WITH HEART FA 12/24/2017 LELIA PINEDA MD Ot 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 12/24/2017 LELIA PINEDA MD Ot I50.9 HEART FAILURE, UNSPECIFIED 12/24/2017 LELIA PINEDA MD Ot R07.89 OTHER CHEST PAIN 01/14/2018 LELIA PINEDA MD Ot E11.9 TYPE 2 DIABETES MELLITUS WITHOUT COMPLIC 01/14/2018 LELIA PINEDA MD Ot E78.2 MIXED HYPERLIPIDEMIA 01/14/2018 LELIA PINEDA MD Ot I11.0 HYPERTENSIVE HEART DISEASE WITH HEART FA 01/14/2018 LELIA PINEDA MD Ot 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 01/14/2018 LELIA PINEDA MD Ot I50.9 HEART FAILURE, UNSPECIFIED 01/14/2018 LELIA PINEDA MD Ot R07.89 OTHER CHEST PAIN 01/24/2018 LELIA PINEDA MD Ot E11.9 TYPE 2 DIABETES MELLITUS WITHOUT COMPLIC 01/24/2018 LELIA PINEDA MD Ot E78.2 MIXED HYPERLIPIDEMIA 01/24/2018 LELIA PINEDA MD Ot I11.0 HYPERTENSIVE HEART DISEASE WITH HEART FA 01/24/2018 LELIA PINEDA MD Ot 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 01/24/2018 LELIA PINEDA MD Ot I50.9 HEART FAILURE, UNSPECIFIED 01/24/2018 LELIA PINEDA MD Ot R07.89 OTHER CHEST PAIN 05/06/2018 LELIA PINEDA MD Ot E78.2 MIXED HYPERLIPIDEMIA 05/06/2018 LELIA PNIEDA MD Ot I10 ESSENTIAL (PRIMARY) HYPERTENSION 05/06/2018 LELIA PINEDA MD Ot 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 05/06/2018 LELIA PINEDA MD Ot K27.9 PEPTIC UL, SITE UNSP, UNSP AC OR CHR 05/06/2018 LELIA PINEDA MD Ot R07.9 CHEST PAIN, UNSPECIFIED 06/10/2018 LELIA PINEDA MD Ot E11.9 TYPE 2 DIABETES MELLITUS WITHOUT COMPLIC 06/10/2018 LELIA PINEDA MD Ot E78.2 MIXED HYPERLIPIDEMIA 06/10/2018 LELIA PINEDA MD Ot I10 ESSENTIAL (PRIMARY) HYPERTENSION 06/10/2018 LELIA PINEDA MD Ot 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 06/10/2018 LELIA PINEDA MD Ot I50.9 HEART FAILURE, UNSPECIFIED 06/10/2018 LELIA PINEDA MD Ot R07.89 OTHER CHEST PAIN 01/07/2019 ELIZABETH DANIEL, LISSA Tomlinson Ot 250.00 DIAB ALLY WO COMPL, TYPE II OR UNSPEC TY 01/07/2019 FLOR ARIZMENDI DO Ot 719.46 JOINT PAIN-L/LEG 01/07/2019 DC CALHOUN MD Ot 596.51 HYPERTONICITY OF BLADDER 01/07/2019 DC CALHOUN MD Ot V72.63 PRE-PROCEDURAL LABORATORY EXAMINATION 01/07/2019 DC CALHOUN MD Ot V72.84 EXAM PRE-OPERATIVE NOS 01/07/2019 DC CALHOUN MD Ot V74.8 SCREEN-BACTERIAL DIS NEC 01/07/2019 FLRO ARIZMENDI DO Ot 719.46 JOINT PAIN-L/LEG 01/07/2019 FLOR ARIZMENDI DO, Ot V72.84 EXAM PRE-OPERATIVE NOS 01/07/2019 DC CALHOUN MD Ot 593.9 RENAL URETERAL DIS NOS 01/07/2019 DC CALHOUN MD Ot 593.9 RENAL URETERAL DIS NOS 01/07/2019 DC CALHOUN MD Ot V81.5 SCREEN FOR NEPHROPATHY 01/07/2019 Ot 250.00 DIAB ALLY WO COMPL, TYPE II OR UNSPEC TY 01/07/2019 LELIA PINEDA MD Ot 272.4 HYPERLIPIDEMIA NEC/NOS 01/07/2019 LELIA PINEDA MD Ot 401.9 HYPERTENSION NOS 01/07/2019 LELIA PINEDA MD Ot 414.9 CHR ISCHEMIC HRT DIS NOS 01/07/2019 LELIA PINEDA MD Ot 786.50 CHEST PAIN NOS 01/07/2019 LELIA PINEDA MD Ot 272.4 HYPERLIPIDEMIA NEC/NOS 01/07/2019 LELIA PINEDA MD Ot 401.9 HYPERTENSION NOS 01/07/2019 LELIA PINEDA MD Ot 414.00 CORON ATHEROSCLER NOS TYPE VESSEL, NATIV 01/07/2019 LELIA PINEDA MD Ot 786.50 CHEST PAIN NOS 01/07/2019 CARRIE FORTUNE Ot 272.4 HYPERLIPIDEMIA NEC/NOS 01/07/2019 FLOR MARVIN MD Ot T84.59XA INFECT/INFLM REACTION DUE TO OTH INTERNA 01/07/2019 FLOR MARVIN MD Ot T84.59XA INFECT/INFLM REACTION DUE TO OTH INTERNA 01/07/2019 LELIA PINEDA MD Ot E78.5 HYPERLIPIDEMIA, UNSPECIFIED 01/07/2019 LELIA PINEDA MD Ot I10 ESSENTIAL (PRIMARY) HYPERTENSION 01/07/2019 LELIA PINEDA MD Ot 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 01/07/2019 LELIA PINEDA MD Ot R07.89 OTHER CHEST PAIN 01/07/2019 LELIA PINEDA MD Ot E78.2 MIXED HYPERLIPIDEMIA 01/07/2019 LELIA PINEDA MD Ot I10 ESSENTIAL (PRIMARY) HYPERTENSION 01/07/2019 LELIA PINEDA MD Ot 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 01/07/2019 LELIA PINEDA MD Ot K27.9 PEPTIC ULC, SITE UNSP, UNSP AC OR CHR 01/07/2019 LELIA PINEDA MD Ot R07.9 CHEST PAIN, UNSPECIFIED 01/07/2019 LELIA PINEDA MD Ot E78.2 MIXED HYPERLIPIDEMIA 01/07/2019 LELIA PINEDA MD Ot I10 ESSENTIAL (PRIMARY) HYPERTENSION 01/07/2019 LELIA PINEDA MD Ot 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 01/07/2019 LELIA PINEDA MD Ot K27.9 PEPTIC ULC, SITE UNSP, UNSP AC OR CHR 01/07/2019 LELIA PINEDA MD Ot R07.9 CHEST PAIN, UNSPECIFIED 01/07/2019 LELIA PINEDA MD Ot E11.9 TYPE 2 DIABETES MELLITUS WITHOUT COMPLIC 01/07/2019 LELIA PINEDA MD Ot E78.2 MIXED HYPERLIPIDEMIA 01/07/2019 LELIA PINEDA MD Ot I11.0 HYPERTENSIVE HEART DISEASE WITH HEART FA 01/07/2019 LELIA PINEDA MD Ot 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 01/07/2019 LELIA PINEDA MD Ot I50.9 HEART FAILURE, UNSPECIFIED 01/07/2019 LELIA PINEDA MD Ot R07.89 OTHER CHEST PAIN 01/07/2019 LELIA PINEDA MD Ot E11.9 TYPE 2 DIABETES MELLITUS WITHOUT COMPLIC 01/07/2019 LELIA PINEDA MD Ot E78.2 MIXED HYPERLIPIDEMIA 01/07/2019 LELIA PINEDA MD Ot I10 ESSENTIAL (PRIMARY) HYPERTENSION 01/07/2019 LELIA PINEDA MD Ot 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 01/07/2019 LELIA PINEDA MD Ot I50.9 HEART FAILURE, UNSPECIFIED 01/07/2019 LELIA PINEDA MD Ot R07.89 OTHER CHEST PAIN 01/07/2019 ELIZABETH DANIEL, LISSA Tomlinson Ot 250.00 DIAB ALLY WO COMPL, TYPE II OR UNSPEC TY 01/07/2019 SATTERJOSE DO FLOR F Ot 719.46 JOINT PAIN-L/LEG 01/07/2019 DC CALHOUN MD Ot 596.51 HYPERTONICITY OF BLADDER 01/07/2019 DC CALHOUN MD Ot V72.63 PRE-PROCEDURAL LABORATORY EXAMINATION 01/07/2019 DC CALHOUN MD Ot V72.84 EXAM PRE-OPERATIVE NOS 01/07/2019 DC CALHOUN MD Ot V74.8 SCREEN-BACTERIAL DIS NEC 01/07/2019 KYLEIGH URBANO FLOR F Ot 719.46 JOINT PAIN-L/LEG 01/07/2019 FLOR ARIZMENDI DO Ot V72.84 EXAM PRE-OPERATIVE NOS 01/07/2019 DC CALHOUN MD Ot 593.9 RENAL URETERAL DIS NOS 01/07/2019 DC CALHOUN MD Ot 593.9 RENAL URETERAL DIS NOS 01/07/2019 DC CALHOUN MD Ot V81.5 SCREEN FOR NEPHROPATHY 01/07/2019 Ot 250.00 DIAB ALLY WO COMPL, TYPE II OR UNSPEC TY 01/07/2019 LELIA PINEDA MD Ot 272.4 HYPERLIPIDEMIA NEC/NOS 01/07/2019 LELIA PINEDA MD Ot 401.9 HYPERTENSION NOS 01/07/2019 LELIA PINEDA MD Ot 414.9 CHR ISCHEMIC HRT DIS NOS 01/07/2019 LELIA PINEDA MD Ot 786.50 CHEST PAIN NOS 01/07/2019 LELIA PINEDA MD Ot 272.4 HYPERLIPIDEMIA NEC/NOS 01/07/2019 LELIA PINEDA MD Ot 401.9 HYPERTENSION NOS 01/07/2019 LELIA PINEDA MD Ot 414.00 CORON ATHEROSCLER NOS TYPE VESSEL, NATIV 01/07/2019 LELIA PINEDA MD Ot 786.50 CHEST PAIN NOS 01/07/2019 CARRIE FORTUNE Ot 272.4 HYPERLIPIDEMIA NEC/NOS 01/07/2019 FLOR MARVIN MD Ot T84.59XA INFECT/INFLM REACTION DUE TO OTH INTERNA 01/07/2019 FLOR MARVIN MD Ot T84.59XA INFECT/INFLM REACTION DUE TO OTH INTERNA 01/07/2019 LELIA PINEDA MD Ot E78.5 HYPERLIPIDEMIA, UNSPECIFIED 01/07/2019 LELIA PINEAD MD Ot I10 ESSENTIAL (PRIMARY) HYPERTENSION 01/07/2019 LELIA PINEDA MD Ot 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 01/07/2019 LELIA PINEDA MD Ot R07.89 OTHER CHEST PAIN 01/07/2019 LELIA PINEDA MD Ot E78.2 MIXED HYPERLIPIDEMIA 01/07/2019 LELIA PINEDA MD Ot I10 ESSENTIAL (PRIMARY) HYPERTENSION 01/07/2019 LELIA PINEDA MD Ot 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 01/07/2019 LELIA PINEDA MD Ot K27.9 PEPTIC ULC, SITE UNSP, UNSP AC OR CHR 01/07/2019 LELIA PINEDA MD Ot R07.9 CHEST PAIN, UNSPECIFIED 01/07/2019 LELIA PINEDA MD Ot E78.2 MIXED HYPERLIPIDEMIA 01/07/2019 LELIA PINDEA MD Ot I10 ESSENTIAL (PRIMARY) HYPERTENSION 01/07/2019 LELIA PINEDA MD Ot 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 01/07/2019 LELIA PINEDA MD Ot K27.9 PEPTIC ULC, SITE UNSP, UNSP AC OR CHR 01/07/2019 LELIA PINEDA MD Ot R07.9 CHEST PAIN, UNSPECIFIED 01/07/2019 LELIA PINEDA MD Ot E11.9 TYPE 2 DIABETES MELLITUS WITHOUT COMPLIC 01/07/2019 LELIA PINEDA MD Ot E78.2 MIXED HYPERLIPIDEMIA 01/07/2019 LELIA PINEDA MD Ot I11.0 HYPERTENSIVE HEART DISEASE WITH HEART FA 01/07/2019 LELIA IPNEDA MD Ot 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 01/07/2019 LELIA PINEDA MD Ot I50.9 HEART FAILURE, UNSPECIFIED 01/07/2019 LELIA PINEDA MD Ot R07.89 OTHER CHEST PAIN 01/07/2019 LELIA PINEDA MD Ot E11.9 TYPE 2 DIABETES MELLITUS WITHOUT COMPLIC 01/07/2019 LELIA PINEDA MD Ot E78.2 MIXED HYPERLIPIDEMIA 01/07/2019 LELIA PINEDA MD Ot I10 ESSENTIAL (PRIMARY) HYPERTENSION 01/07/2019 LELIA PINEDA MD, Ot 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 01/07/2019 LELIA PINEDA MD Ot I50.9 HEART FAILURE, UNSPECIFIED 01/07/2019 LELIA PINEDA MD Ot R07.89 OTHER CHEST PAIN Procedures Code Description Performed By Performed On 96.04 INSERT ENDOTRACHEAL TUBE 02/03/2013 96.71 CONTINUOUS INVASIVE MECHANICAL VENTILATI 02/03/2013 67792 ROUTINE VENIPUNCTURE 02/10/2013 57193 CMP 02/10/2013 59758 LIPID PANEL 02/10/2013 [id number] GFR CALC (RESULT ONLY) 02/10/2013 69391 CBC 02/10/2013 Dc [place] 02/16/2013 86687 PULMONARY FUNCTION TEST (IN- HOUSE) 03/07/2013 94573 PULMONARY FUNCTION TEST (IN- HOUSE) 03/07/2013 39075 RESPIRATORY FLOW VOLUME LOOP 03/07/2013 16471 MICRO ALBUMIN-IN HOUSE 03/14/2013 43063 A1C (IN-HOUSE) 03/14/2013 57821 OXIMETRY 03/31/2013 PHYSICAL PHYSICAL THERAPY, VIA [facility] 07/11/2013 54349 URINE DRUG SCREEN (IN-HOUSE ) 09/29/2013 58496 A1C (IN-HOUSE) 10/03/2013 77369 ROUTINE VENIPUNCTURE 01/29/2014 89783 TSH 01/29/2014 37337 A1C (IN-HOUSE) 01/29/2014 53914 CBC 01/29/2014 [id number] GFR CALC (RESULT ONLY) 01/29/2014 78935 CMP 01/29/2014 42408 LIPID PANEL 01/29/2014 38274 WART DESTRUCT 1-14 ([facility]) 02/13/2014 68683 ROUTINE VENIPUNCTURE 03/16/2014 47838 TSH 03/16/2014 00.84 RILEY OF TOTAL KNEE REPLACEMENT, TIBIAL 03/29/2014 62061 A1C (IN-HOUSE) 06/20/2014 44507 INFLUENZA A & B (IN-HOUSE) 12/12/2014 J7613 ALBUTEROL UNIT DOSE FORM INHALED 02/26/2015 28146 NEBULIZER TREATMENT 02/26/2015 25984 OXIMETRY 02/26/2015 Results Test Result Range Complete [...] culture - 04/05/17 17:14 Bacterial urine culture [id number] NRG COLONY COUNT >100,000/ML NRG FTX;REPORTABLE SENSITIVITY [...] susceptibility test by minimum inhibitory concentration - NR Urine drug screening test - 05/05/17 16:25 [...] 1) - 07/19/18 09:40 Prescribed Drug 1 [place](TM) NRG Creatinine 157.4 mg/dL > or=20.0 pH [...] NRG Blood erythrocyte morphology finding identification NORMAL NR Manual blood metamyelocytes/100 leukocytes 1 % NRG Blood lactic acid measurement (moles/volume) - 01/07/19 21:54 Blood lactic acid measurement (moles/volume) 3.18 mmol/L 0.50-2.00 Bacterial blood culture - 01/07/19 21:54 QUANTITY OF GROWTH . [facility] Bacterial blood culture SEE COMMEN [facility] Influenza virus A and B antigen detection - 01/07/19 22:01 FLU RESULT NEGATIVE FOR INFLUENZA A AND B ANTIGENS BY IA [facility] Bacterial blood culture - 01/07/19 22:09 Bacterial blood culture [facility] Complete urinalysis with reflex to culture - [...] urine sediment by light microscopy RARE NRG Bacterial urine culture - 01/07/19 22:34 Bacterial urine culture 3 OR MORE NRG COLONY COUNT >100,000/ML NRG FTX;REPORTABLE SUGGESTING PROBABLE COLLECTION NRG FREE TEXT ENTRY 2 CONTAMINATION WITH SKIN TEREZA NRG FREE TEXT ENTRY 3 NO SUSCEPTIBILITY PERFORMED NRG Serum or plasma lactate measurement (moles/volume) - 01/08/19 00:41 Serum or plasma lactate measurement (moles/volume) 5.34 mmol/L 0.50-2.00 Capillary blood glucose measurement by glucometer (mass/volume) - 01/08/19 00: 46 Capillary blood glucose measurement by glucometer (mass/volume) 248 mg/dL 70-110 Methicillin resistant Staphylococcus aureus (MRSA) screening culture - 02:00 MRSA SCREEN RESULT MRSA ISOLATED NRG Complete blood count (CBC) with automated white blood cell (WBC) differential - 01/08/19 02:30 Blood leukocytes automated count (number/volume) 7.6 10*3/uL 4.3-11.0 Blood erythrocytes automated count (number/volume) 4.40 10*6/uL 4.35-5.85 Venous blood hemoglobin measurement (mass/volume) 12.9 g/dL 11.5-16.0 Blood hematocrit (volume fraction) 39 % 35-52 Automated erythrocyte mean corpuscular volume 90 [foz_us] 80-99 Automated erythrocyte mean corpuscular hemoglobin (mass per erythrocyte) 29 pg 25-34 Automated erythrocyte mean corpuscular hemoglobin concentration measurement ( mass/volume) 33 g/dL 32-36 Automated erythrocyte distribution width ratio 14.1 % 10.0-14.5 Automated blood platelet count (count/volume) 218 10*3/uL 130-400 Automated blood platelet mean volume measurement 9.5 [foz_us] 7.4-10.4 Automated blood neutrophils/100 leukocytes 90 % 42-75 Automated blood lymphocytes/100 leukocytes 5 % 12-44 Blood monocytes/100 leukocytes 5 % 0-12 Automated blood eosinophils/100 leukocytes 0 % 0-10 Automated blood basophils/100 leukocytes 0 % 0-10 Blood neutrophils automated count (number/volume) 6.9 10*3 1.8-7.8 Blood lymphocytes automated count (number/volume) 0.4 10*3 1.0-4.0 Blood monocytes automated count (number/volume) 0.3 10*3 0.0-1.0 Automated eosinophil count 0.0 10*3/uL 0.0-0.3 Automated blood basophil count (count/volume) 0.0 10*3/uL 0.0-0.1 Blood lactic acid measurement (moles/volume) - 01/08/19 02:30 Blood lactic acid measurement (moles/volume) 3.03 mmol/L 0.50-2.00 Comprehensive metabolic panel - 01/08/19 02:30 Serum or plasma sodium measurement (moles/volume) 135 mmol/L 135-145 Serum or plasma potassium measurement (moles/volume) 4.7 mmol/L 3.6-5.0 Serum or plasma chloride measurement (moles/volume) 104 mmol/L 98-107 Carbon dioxide 18 mmol/L 21-32 Serum or plasma anion gap determination (moles/volume) 13 mmol/L 5-14 Serum or plasma urea nitrogen measurement (mass/volume) 18 mg/dL 7-18 Serum or plasma creatinine measurement (mass/volume) 1.05 mg/dL 0.60-1.30 Serum or plasma urea nitrogen/creatinine mass ratio 17 NRG Serum or plasma creatinine measurement with calculation of estimated glomerular filtration rate 52 NRG Serum or plasma glucose measurement (mass/volume) 375 mg/dL 70-105 Serum or plasma calcium measurement (mass/volume) 8.0 mg/dL 8.5-10.1 Serum or plasma total bilirubin measurement (mass/volume) 0.5 mg/dL 0.1-1.0 Serum or plasma alkaline phosphatase measurement (enzymatic activity/volume) 84 U/L 40-136 Serum or plasma aspartate aminotransferase measurement (enzymatic activity/ volume) 69 U/L 5-34 Serum or plasma alanine aminotransferase measurement (enzymatic activity/volume ) 75 U/L 0-55 Serum or plasma protein measurement (mass/volume) 6.2 g/dL 6.4-8.2 Serum or plasma albumin measurement (mass/volume) 3.7 g/dL 3.2-4.5 CALCIUM CORRECTED 8.2 mg/dL 8.5-10.1 Serum or plasma phosphate measurement (mass/volume) - 01/08/19 02:30 Serum or plasma phosphate measurement (mass/volume) 4.0 mg/dL 2.3-4.7 Magnesium - 01/08/19 02:30 Magnesium 1.4 mg/dL 1.8-2.4 Serum or plasma amylase measurement (enzymatic activity/volume) - 01/08/19 02: 30 Serum or plasma amylase measurement (enzymatic activity/volume) 31 U /L 25-125 Lipase - 01/08/19 02:30 Lipase 36 U/L 8-78 Serum or plasma troponin i.cardiac measurement (mass/volume) - 01/08/19 02:30 Serum or plasma troponin i.cardiac measurement (mass/volume) < ng/ mL <0.028 Bacterial blood culture - 01/08/19 02:30 Bacterial blood culture NG NRG Bacterial blood culture - 01/08/19 02:35 Bacterial blood culture NG NRG Capillary blood glucose measurement by glucometer (mass/volume) - 01/08/19 06: 27 Capillary blood glucose measurement by glucometer (mass/volume) 308 mg/dL 70-110 Blood lactic acid measurement (moles/volume) - 01/08/19 08:34 Blood lactic acid measurement (moles/volume) 3.14 mmol/L 0.50-2.00 Serum or plasma lactate measurement (moles/volume) - 01/08/19 10:43 Serum or plasma lactate measurement (moles/volume) 2.19 mmol/L 0.50-2.00 Capillary blood glucose measurement by glucometer (mass/volume) - 01/08/19 11: 18 Capillary blood glucose measurement by glucometer (mass/volume) 279 mg/dL 70-110 Serum or plasma troponin i.cardiac measurement (mass/volume) - 01/08/19 12:34 Serum or plasma troponin i.cardiac measurement (mass/volume) < ng/ mL <0.028 Capillary blood glucose measurement by glucometer (mass/volume) - 01/08/19 16: 28 Capillary blood glucose measurement by glucometer (mass/volume) 356 mg/dL 70-110 Serum or plasma troponin i.cardiac measurement (mass/volume) - 01/08/19 18:05 Serum or plasma troponin i.cardiac measurement (mass/volume) < ng/ mL <0.028 Capillary blood glucose measurement by glucometer (mass/volume) - 01/08/19 22: 00 Capillary blood glucose measurement by glucometer (mass/volume) 315 mg/dL 70-110 Complete blood count (CBC) with automated white blood cell (WBC) differential - 01/09/19 03:10 Blood leukocytes automated count (number/volume) 8.1 10*3/uL 4.3-11.0 Blood erythrocytes automated count (number/volume) 4.10 10*6/uL 4.35-5.85 Venous blood hemoglobin measurement (mass/volume) 12.0 g/dL 11.5-16.0 Blood hematocrit (volume fraction) 37 % 35-52 Automated erythrocyte mean corpuscular volume 91 [foz_us] 80-99 Automated erythrocyte mean corpuscular hemoglobin (mass per erythrocyte) 29 pg 25-34 Automated erythrocyte mean corpuscular hemoglobin concentration measurement ( mass/volume) 32 g/dL 32-36 Automated erythrocyte distribution width ratio 14.2 % 10.0-14.5 Automated blood platelet count (count/volume) 172 10*3/uL 130-400 Automated blood platelet mean volume measurement 9.8 [foz_us] 7.4-10.4 Automated blood neutrophils/100 leukocytes 85 % 42-75 Automated blood lymphocytes/100 leukocytes 7 % 12-44 Blood monocytes/100 leukocytes 8 % 0-12 Automated blood eosinophils/100 leukocytes 0 % 0-10 Automated blood basophils/100 leukocytes 0 % 0-10 Blood neutrophils automated count (number/volume) 6.9 10*3 1.8-7.8 Blood lymphocytes automated count (number/volume) 0.6 10*3 1.0-4.0 Blood monocytes automated count (number/volume) 0.6 10*3 0.0-1.0 Automated eosinophil count 0.0 10*3/uL 0.0-0.3 Automated blood basophil count (count/volume) 0.0 10*3/uL 0.0-0.1 Comprehensive metabolic panel - 01/09/19 03:10 Serum or plasma sodium measurement (moles/volume) 137 mmol/L 135-145 Serum or plasma potassium measurement (moles/volume) 4.6 mmol/L 3.6-5.0 Serum or plasma chloride measurement (moles/volume) 107 mmol/L 98-107 Carbon dioxide 21 mmol/L 21-32 Serum or plasma anion gap determination (moles/volume) 9 mmol/L 5-14 Serum or plasma urea nitrogen measurement (mass/volume) 15 mg/dL 7-18 Serum or plasma creatinine measurement (mass/volume) 0.93 mg/dL 0.60-1.30 Serum or plasma urea nitrogen/creatinine mass ratio 16 NRG Serum or plasma creatinine measurement with calculation of estimated glomerular filtration rate 60 NRG Serum or plasma glucose measurement (mass/volume) 254 mg/dL 70-105 Serum or plasma calcium measurement (mass/volume) 7.9 mg/dL 8.5-10.1 Serum or plasma total bilirubin measurement (mass/volume) 0.4 mg/dL 0.1-1.0 Serum or plasma alkaline phosphatase measurement (enzymatic activity/volume) 68 U/L 40-136 Serum or plasma aspartate aminotransferase measurement (enzymatic activity/ volume) 77 U/L 5-34 Serum or plasma alanine aminotransferase measurement (enzymatic activity/volume ) 69 U/L 0-55 Serum or plasma protein measurement (mass/volume) 5.9 g/dL 6.4-8.2 Serum or plasma albumin measurement (mass/volume) 3.5 g/dL 3.2-4.5 CALCIUM CORRECTED 8.3 mg/dL 8.5-10.1 Serum or plasma phosphate measurement (mass/volume) - 01/09/19 03:10 Serum or plasma phosphate measurement (mass/volume) 2.7 mg/dL 2.3-4.7 Magnesium - 01/09/19 03:10 Magnesium 2.2 mg/dL 1.8-2.4 Arterial blood gas measurement - 01/09/19 07:44 Blood pCO2 38 mm[Hg] 35-45 Blood pO2 55 mm[Hg] 79-93 Arterial blood bicarbonate measurement (moles/volume) 22 mmol/L 23-27 Arterial blood base excess by calculation -2.8 mmol/L - 2.5-2.5 Arterial blood oxygen saturation measurement 90 % 94-100 * Inhaled oxygen flow rate 2 NRG Arterial blood pH measurement with patient temperature correction 7.38 7.37-7.43 Arterial blood carbon dioxide, total measurement (moles/volume) 22.8 mmol/L 21.0-31.0 Body site R RADIAL NRG Assessment of wrist artery patency prior to arterial puncture YES- POS NRG Setting of ventilation mode NO NRG Measurement of body temperature 98.0 NRG Capillary blood glucose measurement by glucometer (mass/volume) - 01/09/19 11: 09 Capillary blood glucose measurement by glucometer (mass/volume) 329 mg/dL 70-110 Capillary blood glucose measurement by glucometer (mass/volume) - 01/09/19 16: 58 Capillary blood glucose measurement by glucometer (mass/volume) 366 mg/dL 70-110 Capillary blood glucose measurement by glucometer (mass/volume) - 01/09/19 20: 55 Capillary blood glucose measurement by glucometer (mass/volume) 407 mg/dL 70-110 Complete blood count (CBC) with automated white blood cell (WBC) differential - 01/10/19 04:40 Blood leukocytes automated count (number/volume) 7.3 10*3/uL 4.3-11.0 Blood erythrocytes automated count (number/volume) 4.31 10*6/uL 4.35-5.85 Venous blood hemoglobin measurement (mass/volume) 12.7 g/dL 11.5-16.0 Blood hematocrit (volume fraction) 39 % 35-52 Automated erythrocyte mean corpuscular volume 90 [foz_us] 80-99 Automated erythrocyte mean corpuscular hemoglobin (mass per erythrocyte) 29 pg 25-34 Automated erythrocyte mean corpuscular hemoglobin concentration measurement ( mass/volume) 33 g/dL 32-36 Automated erythrocyte distribution width ratio 14.6 % 10.0-14.5 Automated blood platelet count (count/volume) 180 10*3/uL 130-400 Automated blood platelet mean volume measurement 9.8 [foz_us] 7.4-10.4 Automated blood neutrophils/100 leukocytes 85 % 42-75 Automated blood lymphocytes/100 leukocytes 8 % 12-44 Blood monocytes/100 leukocytes 7 % 0-12 Automated blood eosinophils/100 leukocytes 0 % 0-10 Automated blood basophils/100 leukocytes 0 % 0-10 Blood neutrophils automated count (number/volume) 6.2 10*3 1.8-7.8 Blood lymphocytes automated count (number/volume) 0.6 10*3 1.0-4.0 Blood monocytes automated count (number/volume) 0.5 10*3 0.0-1.0 Automated eosinophil count 0.0 10*3/uL 0.0-0.3 Automated blood basophil count (count/volume) 0.0 10*3/uL 0.0-0.1 Comprehensive metabolic panel - 01/10/19 04:40 Serum or plasma sodium measurement (moles/volume) 140 mmol/L 135-145 Serum or plasma potassium measurement (moles/volume) 4.2 mmol/L 3.6-5.0 Serum or plasma chloride measurement (moles/volume) 106 mmol/L 98-107 Carbon dioxide 22 mmol/L 21-32 Serum or plasma anion gap determination (moles/volume) 12 mmol/L 5-14 Serum or plasma urea nitrogen measurement (mass/volume) 17 mg/dL 7-18 Serum or plasma creatinine measurement (mass/volume) 0.95 mg/dL 0.60-1.30 Serum or plasma urea nitrogen/creatinine mass ratio 18 NRG Serum or plasma creatinine measurement with calculation of estimated glomerular filtration rate 58 NRG Serum or plasma glucose measurement (mass/volume) 282 mg/dL 70-105 Serum or plasma calcium measurement (mass/volume) 8.6 mg/dL 8.5-10.1 Serum or plasma total bilirubin measurement (mass/volume) 0.3 mg/dL 0.1-1.0 Serum or plasma alkaline phosphatase measurement (enzymatic activity/volume) 73 U/L 40-136 Serum or plasma aspartate aminotransferase measurement (enzymatic activity/ volume) 60 U/L 5-34 Serum or plasma alanine aminotransferase measurement (enzymatic activity/volume ) 66 U/L 0-55 Serum or plasma protein measurement (mass/volume) 6.1 g/dL 6.4-8.2 Serum or plasma albumin measurement (mass/volume) 3.6 g/dL 3.2-4.5 CALCIUM CORRECTED 8.9 mg/dL 8.5-10.1 Serum or plasma phosphate measurement (mass/volume) - 01/10/19 04:40 Serum or plasma phosphate measurement (mass/volume) 3.3 mg/dL 2.3-4.7 Magnesium - 01/10/19 04:40 Magnesium 1.8 mg/dL 1.8-2.4 Capillary blood glucose measurement by glucometer (mass/volume) - 01/10/19 05: 12 Capillary blood glucose measurement by glucometer (mass/volume) 263 mg/dL 70-110 Capillary blood glucose measurement by glucometer (mass/volume) - 01/10/19 11: 07 Capillary blood glucose measurement by glucometer (mass/volume) 312 mg/dL 70-110 Capillary blood glucose measurement by glucometer (mass/volume) - 01/10/19 16: 13 Capillary blood glucose measurement by glucometer (mass/volume) 325 mg/dL 70-110 Capillary blood glucose measurement by glucometer (mass/volume) - 01/10/19 21: 16 Capillary blood glucose measurement by glucometer (mass/volume) 301 mg/dL 70-110 Complete blood count (CBC) with automated white blood cell (WBC) differential - 01/11/19 03:55 Blood leukocytes automated count (number/volume) 5.8 10*3/uL 4.3-11.0 Blood erythrocytes automated count (number/volume) 4.39 10*6/uL 4.35-5.85 Venous blood hemoglobin measurement (mass/volume) 12.8 g/dL 11.5-16.0 Blood hematocrit (volume fraction) 40 % 35-52 Automated erythrocyte mean corpuscular volume 90 [foz_us] 80-99 Automated erythrocyte mean corpuscular hemoglobin (mass per erythrocyte) 29 pg 25-34 Automated erythrocyte mean corpuscular hemoglobin concentration measurement ( mass/volume) 32 g/dL 32-36 Automated erythrocyte distribution width ratio 14.3 % 10.0-14.5 Automated blood platelet count (count/volume) 167 10*3/uL 130-400 Automated blood platelet mean volume measurement 10.0 [foz_us] 7.4-10.4 Automated blood neutrophils/100 leukocytes 76 % 42-75 Automated blood lymphocytes/100 leukocytes 18 % 12-44 Blood monocytes/100 leukocytes 6 % 0-12 Automated blood eosinophils/100 leukocytes 0 % 0-10 Automated blood basophils/100 leukocytes 0 % 0-10 Blood neutrophils automated count (number/volume) 4.4 10*3 1.8-7.8 Blood lymphocytes automated count (number/volume) 1.1 10*3 1.0-4.0 Blood monocytes automated count (number/volume) 0.3 10*3 0.0-1.0 Automated eosinophil count 0.0 10*3/uL 0.0-0.3 Automated blood basophil count (count/volume) 0.0 10*3/uL 0.0-0.1 Comprehensive metabolic panel - 01/11/19 03:55 Serum or plasma sodium measurement (moles/volume) 139 mmol/L 135-145 Serum or plasma potassium measurement (moles/volume) 3.1 mmol/L 3.6-5.0 Serum or plasma chloride measurement (moles/volume) 103 mmol/L 98-107 Carbon dioxide 25 mmol/L 21-32 Serum or plasma anion gap determination (moles/volume) 11 mmol/L 5-14 Serum or plasma urea nitrogen measurement (mass/volume) 18 mg/dL 7-18 Serum or plasma creatinine measurement (mass/volume) 0.87 mg/dL 0.60-1.30 Serum or plasma urea nitrogen/creatinine mass ratio 21 NRG Serum or plasma creatinine measurement with calculation of estimated glomerular filtration rate > NRG Serum or plasma glucose measurement (mass/volume) 212 mg/dL 70-105 Serum or plasma calcium measurement (mass/volume) 8.3 mg/dL 8.5-10.1 Serum or plasma total bilirubin measurement (mass/volume) 0.4 mg/dL 0.1-1.0 Serum or plasma alkaline phosphatase measurement (enzymatic activity/volume) 74 U/L 40-136 Serum or plasma aspartate aminotransferase measurement (enzymatic activity/ volume) 47 U/L 5-34 Serum or plasma alanine aminotransferase measurement (enzymatic activity/volume ) 53 U/L 0-55 Serum or plasma protein measurement (mass/volume) 5.8 g/dL 6.4-8.2 Serum or plasma albumin measurement (mass/volume) 3.4 g/dL 3.2-4.5 CALCIUM CORRECTED 8.8 mg/dL 8.5-10.1 Serum or plasma phosphate measurement (mass/volume) - 01/11/19 03:55 Serum or plasma phosphate measurement (mass/volume) 3.2 mg/dL 2.3-4.7 Magnesium - 01/11/19 03:55 Magnesium 1.6 mg/dL 1.8-2.4 Serum or plasma troponin i.cardiac measurement (mass/volume) - 01/11/19 03:55 Serum or plasma troponin i.cardiac measurement (mass/volume) < ng/ mL <0.028 Capillary blood glucose measurement by glucometer (mass/volume) - 01/11/19 05: 36 Capillary blood glucose measurement by glucometer (mass/volume) 198 mg/dL 70-110 Capillary blood glucose measurement by glucometer (mass/volume) - 01/11/19 11: 23 Capillary blood glucose measurement by glucometer (mass/volume) 341 mg/dL 70-110 Complete blood count (CBC) with automated white blood cell (WBC) differential - 01/13/19 14:20 Blood leukocytes automated count (number/volume) 9.3 10*3/uL 4.3-11.0 Blood erythrocytes automated count (number/volume) 5.21 10*6/uL 4.35-5.85 Venous blood hemoglobin measurement (mass/volume) 15.0 g/dL 11.5-16.0 Blood hematocrit (volume fraction) 46 % 35-52 Automated erythrocyte mean corpuscular volume 89 [foz_us] 80-99 Automated erythrocyte mean corpuscular hemoglobin (mass per erythrocyte) 29 pg 25-34 Automated erythrocyte mean corpuscular hemoglobin concentration measurement ( mass/volume) 33 g/dL 32-36 Automated erythrocyte distribution width ratio 13.9 % 10.0-14.5 Automated blood platelet count (count/volume) 236 10*3/uL 130-400 Automated blood platelet mean volume measurement 9.7 [foz_us] 7.4-10.4 Automated blood neutrophils/100 leukocytes 75 % 42-75 Automated blood lymphocytes/100 leukocytes 19 % 12-44 Blood monocytes/100 leukocytes 5 % 0-12 Automated blood eosinophils/100 leukocytes 0 % 0-10 Automated blood basophils/100 leukocytes 2 % 0-10 Blood neutrophils automated count (number/volume) 7.0 10*3 1.8-7.8 Blood lymphocytes automated count (number/volume) 1.8 10*3 1.0-4.0 Blood monocytes automated count (number/volume) 0.4 10*3 0.0-1.0 Automated eosinophil count 0.0 10*3/uL 0.0-0.3 Automated blood basophil count (count/volume) 0.2 10*3/uL 0.0-0.1 Encounters ACCT No. Visit Date/Time Discharge Status Pt. Type Provider Facility Loc./Unit Complaint [id number] 03/04/2015 10:57:00 03/04/2015 23:59:59 CLS Outpatient NALINI GOMEZ APRN [id number] 02/26/2015 09:57:00 02/26/2015 23:59:59 CLS Outpatient SHAINA CAN APRN [id number] 02/26/2015 09:57:00 02/26/2015 23:59:59 CLS Outpatient SHAINA CAN APRN [id number] 02/01/2015 11:17:00 02/01/2015 23:59:59 CLS Outpatient NALINI GOMEZ APRN [id number] 12/12/2014 11:46:00 12/12/2014 23:59:59 CLS Outpatient SHIN LIU APRN [id number] 12/12/2014 11:46:00 12/12/2014 23:59:59 CLS Outpatient SHIN LIU APRN [id number] 06/20/2014 16:18:00 06/20/2014 23:59:59 CLS Outpatient NALINI GOMEZ APRN [facility] [id number] 06/20/2014 16:18:00 06/20/2014 23:59:59 CLS Outpatient NALINI GOMEZ APRN [id number] 04/26/2014 09:22:00 04/26/2014 23:59:59 CLS Outpatient BUFFY PALOMINO MD [id number] 03/16/2014 11:27:00 03/16/2014 23:59:59 CLS Outpatient NALINI GOMEZ APRN [id number] 02/13/2014 12:45:00 02/13/2014 23:59:59 CLS Outpatient BUFFY PALOMINO MD [id number] 01/29/2014 08:53:00 01/29/2014 23:59:59 CLS Outpatient NALINI GOMEZ APRN [id number] 10/03/2013 12:40:00 10/03/2013 23:59:59 CLS Outpatient NALINI GOMEZ APRN [facility] [id number] 10/03/2013 12:40:00 10/03/2013 23:59:59 CLS Outpatient NALINI GOMEZ APRN [id number] 09/29/2013 15:00:00 09/29/2013 23:59:59 CLS Outpatient NALINI GOMEZ APRN [id number] 08/29/2013 12:41:00 08/29/2013 23:59:59 CLS Outpatient BUFFY PALOMINO MD [id number] 02/14/2013 14:47:00 02/14/2013 23:59:59 CLS Outpatient [id number] 02/10/2013 09:27:00 02/10/2013 23:59:59 CLS Outpatient NALINI GOMEZ APRN [facility] [id number] 11/25/2012 14:32:00 11/25/2012 23:59:59 CLS Outpatient NALINI GOMEZ APRN [id number] 09/16/2012 09:48:00 09/16/2012 23:59:59 CLS Outpatient KUSHAL DUPREE DO [id number] 09/16/2012 09:48:00 09/16/2012 23:59:59 CLS Outpatient [id number] 07/11/2013 14:44:00 Document Registration [id number] 06/23/2013 13:40:00 Document Registration [id number] 05/23/2013 16:19:00 Document Registration [id number] 03/30/2013 10:00:00 Document Registration [id number] 03/30/2013 10:00:00 Document Registration [id number] 03/14/2013 15:24:00 Document Registration [id number] 03/14/2013 15:24:00 Document Registration [id number] 03/02/2013 12:41:00 Document Registration [id number] 01/05/2019 11:00:00 01/05/2019 23:59:59 CLS Outpatient NALINI GOMEZ APRN [facility] [id number] 07/19/2018 09:40:00 Document Registration [id number] 06/09/2018 11:00:00 Document Registration [id number] 04/29/2018 10:20:00 Document Registration [id number] 07/12/2015 03:14:56 ACT Document Registration [id number] 01/07/2019 23:10:00 01/11/2019 16:45:00 DIS Inpatient MERY RAMEY DO [facility] 4TH SUSPECTED PNEUMONIA, HYPOXIA,NASUEA,VOMITING,UTI. [id number] 12/23/2017 12:32:00 12/23/2017 23:59:59 CLS Outpatient LELIA PINEDA MD [facility] CARD CAD [id number] 08/10/2017 15:29:00 08/10/2017 18:48:00 DIS Emergency FELIPEDEEJAY GONSALEZ APRN [facility] ER LEFT FOOT INJ;FALL [id number] 07/29/2017 13:24:00 07/29/2017 23:59:59 CLS Outpatient LELIA PINEDA MD [facility] LAB I25.10,I50.9,R07.89,I10, E78.2,E11.9 [id number] 05/05/2017 15:57:00 05/05/2017 17:51:00 DIS Emergency VU CASTELLON DO [facility] ER BACK PAIN [id number] 04/05/2017 15:51:00 04/05/2017 18:24:00 DIS Emergency DEEJAY FELIPE NYLA [facility] ER L HIP/THIGH PAIN [id number] 11/30/2016 07:51:00 11/30/2016 23:59:59 CLS Outpatient LELIA PINEDA MD [facility] CARD CAD,CHEST PAIN SYNDROME, HTN,PUD [id number] 11/26/2016 13:05:00 11/26/2016 23:59:59 CLS Outpatient LELIA PINEDA MD [facility] CARD CAD,PUD,CHEST PAIN SYNDROME [id number] 07/10/2016 08:28:00 07/10/2016 23:59:59 CLS Outpatient LELIA PINEDA MD [facility] LAB HLP,HTN,CAD,CHEST PAIN [id number] 04/14/2016 09:35:00 04/14/2016 10:35:00 DIS Emergency JEANNIE MARTINEZ MD [facility] ER SUTURE REMOVAL [id number] 04/05/2016 18:04:00 04/05/2016 22:31:00 DIS Emergency PANCHO MARQUIS [facility] ER LACERATION ON PINKY FINGER [id number] 12/17/2015 10:36:00 12/17/2015 23:59:59 CLS Outpatient FLOR MARVIN MD [facility] CARD INFECTION OF TOTAL KNEE REPLACEMENT [id number] 12/10/2015 11:07:00 12/10/2015 23:59:59 CLS Outpatient FLOR MARVIN MD [facility] LAB INFECTION OF TOTAL KNEE REPLACEMENT [id number] 07/11/2015 07:17:00 07/11/2015 23:59:59 CLS Outpatient CARRIE FORTUNE [facility] LAB HLP [id number] 05/15/2015 06:44:00 05/16/2015 14:20:00 DIS Outpatient LELIA PINEDA MD [facility] CATH ABNORMAL STRESS, CAD,HTN ,HLP [id number] 05/08/2015 07:26:00 05/08/2015 23:59:59 CLS Outpatient LELIA PINEDA MD [facility] CARD CAD,CP,HTN,HLP [id number] 04/05/2015 07:47:00 04/05/2015 23:59:59 CLS Outpatient LELIA PINEDA MD [facility] CARD CAD,CP,HTN,HLP [id number] 12/31/2014 10:41:00 12/31/2014 23:59:59 CLS Outpatient LISSA JOHNSON MD [facility] LAB DIABETES [id number] 07/25/2014 08:10:00 07/25/2014 23:59:59 CLS Outpatient DC CALHOUN MD [facility] RAD RIGHT RENAL MASS [id number] 07/17/2014 14:27:00 07/17/2014 23:59:59 CLS Outpatient DC CALHOUN MD [facility] LAB RT RENAL MASS [id number] 05/21/2014 18:14:00 05/27/2014 11:15:00 DIS Inpatient BUFFY PALOMINO MD [facility] 4TH PYELONEPHRITIS,ABD PAIN, NAUSEA/VOMITING [id number] 03/29/2014 08:10:00 03/31/2014 13:15:00 DIS Inpatient BLUTERFLOR GARCIA DO [facility] SURGICAL RIGHT KNEE PAIN; FAILED DEVICE;INSTABILITY [id number] 03/20/2014 06:00:00 03/21/2014 12:57:00 DIS Outpatient DC CALHOUN MD [facility] SDC OVERACTIVE BLADDER [id number] 03/19/2014 11:53:00 03/19/2014 23:59:59 CLS Outpatient BLUTERFLOR GARCIA DO [facility] PREOP RIGHT KNEE PAIN; FAILED DEVICE;INSTABILITY [id number] 03/14/2014 11:58:00 03/14/2014 23:59:59 CLS Outpatient DC CALHOUN MD [facility] PREOP OVERACTIVE BLADDER [id number] 02/27/2014 10:33:00 02/27/2014 23:59:59 CLS Outpatient FLOR ARIZMENDI DO [facility] LAB RT KNEE PAIN/PRE OP [id number] 01/20/2014 14:01:00 01/20/2014 16:45:00 DIS Emergency DEEJAY FELIPE APRN [facility] ER COUGH, CONGESTION [id number] 11/02/2013 10:42:00 11/02/2013 15:00:00 DIS Emergency PANCHO MARQUIS [facility] ER MULTIPLE COMPLAINTS [id number] 09/07/2013 09:45:00 09/13/2013 14:16:00 DIS Outpatient NALINI GOMEZ [facility] REHAB VERTIGO; LABYRHINITIS [id number] 09/04/2013 14:31:00 09/04/2013 18:00:00 DIS Emergency PANCHO MARQUIS [facility] ER SLURRED SPEECH, DIZZINESS [id number] 08/23/2013 07:17:00 08/23/2013 19:48:00 DIS Outpatient LELIA PINEDA MD [facility] CATH CP,CAD,HTN,HLP [id number] 06/05/2013 15:24:00 06/05/2013 19:30:00 DIS Emergency RAVINDER URBANOVU [facility] ER DIZZINESS,NAUSEA [id number] 03/28/2013 11:55:00 03/28/2013 23:59:59 CLS Outpatient LELIA PINEDA MD [facility] RAD CAD [id number] 03/24/2013 06:06:00 03/24/2013 10:45:00 DIS Outpatient DC CALHOUN MD [facility] SDC INCONTINENCE [id number] 01/13/2019 14:16:00 ACT Emergency HILL VIGIL MD [facility] ER CHEST PAIN [id number] 04/05/2015 07:46:00 Document Registration [id number] 04/05/2015 07:46:00 Document Registration [id number] 04/05/2015 07:46:00 Document Registration [id number] 04/05/2015 07:46:00 Document Registration [id number] 04/05/2015 07:46:00 Document Registration [id number] 02/05/2015 10:56:00 Document Registration [id number] 03/14/2013 14:21:00 Document Registration [id number] 03/14/2013 14:08:00 Document Registration [id number] 09/01/2012 10:29:00 Document Registration [id number] 07/11/2012 05:42:00 Document Registration [id number] 07/07/2012 11:37:00 Document Registration [id number] 02/03/2012 05:32:00 Document Registration [id number] 01/27/2012 05:31:00 Document Registration [id number] 01/19/2012 08:45:00 Document Registration [id number] 12/13/2011 15:45:00 Document Registration [id number] 08/03/2011 15:14:00 Document Registration [id number] 07/01/2011 18:27:00 Document Registration [id number] 05/11/2011 13:44:00 Document Registration [id number] 05/06/2011 08:48:00 Document Registration [id number] 05/05/2011 11:00:00 Document Registration [id number] 03/13/2011 09:36:00 Document Registration [id number] 05/07/2017 08:42:00 Document Registration
--- NOTE | 2019-01-13 15:05 | Diagnostic Imaging Report ---
INDICATION: Pneumonia and possible seizure. TIME OF EXAM: 02:49 p.m. Correlation is made with prior study from 01/11/2019. 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 There is some minimal patchy increased density to the right base, which may represent some mild infiltrate There is no evidence of failure. No effusion or pneumothorax is identified. IMPRESSION: Findings suggestive of mild patchy right basilar infiltrate. Dictated by: Dictated on workstation # [id number]
--- NOTE | 2019-01-13 15:08 | ED General ---
General Chief Complaint: Dizziness/Syncope Stated Complaint: CHEST PAIN Nursing Triage Note: EMS CALLED TO HOME FOR POSSIBLE SEIZURE. FAMILY REPORTS PT BECAME STIFF AND WENT TO THE FLOOR HITTING HER HEAD. EMS REPORTS PT HAVING CHEST PAIN IN ROUTE ET GIVING HER ASA 324MG. UPON ARRIVAL PT NAUSEATED ET SMELLS OF URINE. ALERT. EMS REPORTS BLOOD SUGAR ON 394. RECENT DISCHARGE FROM THIS HOSPITAL WITH PNEUMONIA. Nursing Sepsis Screen: No Definite Risk Source of Information: Patient Exam Limitations: No Limitations History of Present Illness Date Seen by Provider: Jan 13, 2019 Time Seen by Provider: 14:21 Initial Comments Here with report of episode in which the patient passed out and family thought she may have had a seizure. Apparently she hasn't been feeling well for several days and was hospitalized from the through the and then discharged home. She apparently had suspected pneumonia. She is currently continuing outpatient medications as prescribed. She states that she has been increasingly weak and not feeling well since returning home with it being worse yesterday and much worse today. She got up and that's when she felt very weak and passed out. Family reports that she was shaking some. She will In the family members arms on the floor. She apparently hit her head when she fell. She denies ever having seizures before. Does admit to cough and shortness of breath. She is not typically on oxygen. EMS reports that she had an initial O2 sat of 86% on their arrival. She complains of some central chest pain that she describes as tightness that is associated with a cough and breathing difficulty. She is also diabetic and blood sugars were noted to be 394. EMS did give aspirin in route. Blood pressure was on the low end and EMS appropriately held nitroglycerin. Oxygen saturations improved with 6 L via nasal cannula. Timing/Duration: 1 Week, Getting Worse Severity: Moderate, Severe Associated Systoms: Chest Pain, Cough, Fever/Chills, Headaches, Shortness of Air, Syncope, Weakness Allergies and Home Medications Allergies Coded Allergies: Penicillins (Unverified Allergy, Unknown, ANAPHALYTIC SHOCK, 03/20/14) ceftriaxone (Unverified Allergy, Unknown, 02/03/13) ceftriaxone sodium (Verified Allergy, Unknown, 03/20/14) Home Medications Albuterol Sulfate 1 Puff Puff, 2 PUFF INH Q6H PRN for SHORTNESS OF BREATH Prescribed by: LIN ARMSTRONG on 01/11/19 1322 Atorvastatin Calcium 40 Mg Tablet, 40 MG PO DAILY, (Reported) Cetirizine HCl 10 Mg Tablet, 10 MG PO DAILY, (Reported) Citalopram Hydrobromide 10 Mg Tablet, 10 MG PO DAILY, (Reported) Fesoterodine Fumarate 8 Mg Tab.er.24h, 8 MG PO DAILY, (Reported) Fluticasone/Salmeterol 1 Each Blst.w.dev, 1 PUFF IH BID, (Reported) Guaifenesin/Dextromethorphan 5 Ml Syrup, 5 ML PO Q4H PRN for COUGH, (Reported) Hydrocodone/Acetaminophen 1 Each Tablet, 1 TAB PO Q6H PRN for PAIN-MODERATE, ( Reported) Levofloxacin 750 Mg Tablet, 750 MG PO HS Prescribed by: LIN ARMSTRONG on 01/11/19 1322 Levothyroxine Sodium 175 Mcg Tablet, 175 MCG PO DAILY, (Reported) Losartan Potassium 50 Mg Tablet, 50 MG PO DAILY, (Reported) Metformin HCl 500 Mg Tablet, 1,000 MG PO BID, (Reported) TAKES 2 (500MG) TABLETS Montelukast Sodium 10 Mg Tablet, 10 MG PO DAILY, (Reported) Prednisone 10 Mg Tab, 50 MG PO DAILY@0700 Prescribed by: LIN ARMSTRONG on 01/11/19 1322 Ranitidine HCl 150 Mg Tablet, 150 MG PO BID, (Reported) Ropinirole HCl 4 Mg Tablet, 4 MG PO DAILY, (Reported) Sucralfate 1 Gm Tablet, 1 GM PO ACHS Prescribed by: LIN ARMSTRONG on 01/11/19 1322 Trospium Chloride 20 Mg Tablet, 20 MG PO HS, (Reported) Patient Home Medication List Home Medication List Reviewed: Yes Review of Systems Review of Systems Constitutional: see HPI, chills, weakness EENTM: no symptoms reported Respiratory: see HPI, cough, short of breath, wheezing Cardiovascular: chest pain (tightness that is worse with coughing and better with rest. Nonradiating.), syncope Gastrointestinal: No abdominal pain; nausea, vomiting Genitourinary: no symptoms reported Musculoskeletal: no symptoms reported Skin: no symptoms reported Psychiatric/Neurological: See HPI All Other Systems Reviewed Negative Unless Noted: Yes Past Bfzkfrm-Jpjlrw-Srwyzx Hx Past Med/Social Hx: Reviewed Nursing Past Med/Soc Hx Patient Social History Alcohol Use: Denies Use Recreational Drug Use: No Smoking Status: Former Smoker Type Used: Cigarettes Former Smoker, Quit: Jan 07, 1988 2nd Hand Smoke Exposure: No Recent Foreign Travel: No Contact w/Someone Who Travel: No Recent Infectious Disease Expo: No Recent Hopitalizations: Yes (PNEUMONA 12/28/18) Immunizations Up To Date Tetanus Booster (TDap): Unknown Date of Pneumonia Vaccine: March 24, 2012 Date of Influenza Vaccine: Aug 21, 2013 Past Medical History Surgeries: Yes Appendectomy, Cardiac, CABG, Coronary Stent, Eye Surgery, Gallbladder, Hysterectomy, Joint Replacement, Oophorectomy, Orthopedic Respiratory: Yes Asthma, Pneumonia, COPD Currently Using CPAP: No Currently Using BIPAP: No Cardiac: Yes (S/P 2 VESSEL CABG AND STENT X 1; CHRONIC CHEST PAIN ) Coronary Artery Disease, High Cholesterol, Hypertension Neurological: No Reproductive Disorders: No 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 Genitourinary: Yes Kidney Infection, Bladder Infection, UTI-Chronic Gastrointestinal: Yes Ulcer Musculoskeletal: Yes (BILAT KNEE REPLACEMENT, BONE SPUR RIGHT HEEL) Osteoporosis, Arthritis, Chronic Back Pain Endocrine: Yes Hypothyroidsim, Diabetes, Non-Insulin dep HEENT: Yes Cataract, Eye Injury Loss of Vision: Left Cancer: No Psychosocial: Yes Anxiety, Depression Integumentary: No Blood Disorders: No Family Medical History Reviewed Nursing Family Hx Cancer G8 SISTER Cataract 19 MOTHER Family history: Arthritis 19 MOTHER G8 SISTER Family history: Diabetes mellitus 19 FATHER 19 MOTHER G8 BROTHER G8 SISTER Family history: Hypertension 19 FATHER 19 MOTHER Family history: Thyroid disorder 19 MOTHER Hearing loss G8 BROTHER Myocardial infarction 19 FATHER 19 MOTHER Parkinson's disease 19 MOTHER No Family History of: Abdominal aortic aneurysm Alcoholism Family history: Alzheimer's disease Family history: Asthma Family history: Gastrointestinal disease Hereditary disease History of - anemia History of - respiratory disease Kidney disease Prostate cancer Psychotic disorder Seizure disorder Stroke Physical Exam-Suspected Sepsis Physical Exam Vital Signs Vital Signs - First Documented 01/13/19 14:13 Temp 98.0 Pulse 89 Resp 28 B/P (MAP) 103/75 (84) Pulse Ox 91 O2 Delivery Nasal Cannula O2 Flow Rate 2.00 Capillary Refill : Less Than 3 Seconds Blood Pressure Mean: 84 Height, Weight, BMI Height: 5'4.00" Weight: 215lbs. 5.0oz. 97.613026vo; 35.7 BMI Method:Stated General Appearance: No Apparent Distress, WD/WN HEENT: TMs Normal, Pharynx Normal, Other (abnormal pupil on the left with patient has history of cataract surgery) Neck: Non Tender, Supple Respiratory: No Accessory Muscle Use, Crackles, Expiration, Wheezing Cardiovascular: Regular Rate, Rhythm, No Murmur Gastrointestinal: Non Tender, Soft Back: Normal Inspection, No CVA Tenderness, No Vertebral Tenderness Extremity: Normal Capillary Refill, Normal Range of Motion, Non Tender, No Calf Tenderness Neurologic/Psychiatric: Alert, Oriented x3 Skin: normal color, warm/dry Focused Exam Lactate Level 01/13/19 15:00: Lactic Acid Level 2.42*H Lactic Acid Level Laboratory Tests Test 01/13/19 15:00 Lactic Acid Level 2.42 MMOL/L (0.50-2.00) *H Progress/Results/Core Measures Suspected Sepsis Recent Fever Within 48 Hours: No Infection Criteria Present: Documented Infection New/Unexplained Altered Menta: No Sepsis Screen: No Definite Risk SIRS Temperature:98.0 Pulse: 89 Respiratory Rate: 28 Laboratory Tests 01/13/19 14:20: White Blood Count 9.3 Blood Pressure 103 /75 Mean: 84 01/13/19 15:00: Lactic Acid Level 2.42*H Laboratory Tests 01/13/19 14:20: Creatinine 1.29, INR Comment 1.1, Platelet Count 236, Total Bilirubin 0.7 Results/Orders Lab Results Laboratory Tests Test 01/13/19 14:20 01/13/19 15:00 01/13/19 16:25 Range/Units White Blood Count 9.3 4.3-11.0 10^3/uL Red Blood Count 5.21 4.35-5.85 10^6/uL Hemoglobin 15.0 11.5-16.0 G/DL Hematocrit 46 35-52 % Mean Corpuscular Volume 89 80-99 FL Mean Corpuscular Hemoglobin 29 25-34 PG Mean Corpuscular Hemoglobin Concent 33 32-36 G/DL Red Cell Distribution Width 13.9 10.0-14.5 % Platelet Count 236 130-400 10^3/uL Mean Platelet Volume 9.7 7.4-10.4 FL Neutrophils (%) (Auto) 75 42-75 % Lymphocytes (%) (Auto) 19 12-44 % Monocytes (%) (Auto) 5 0-12 % Eosinophils (%) (Auto) 0 0-10 % Basophils (%) (Auto) 2 0-10 % Neutrophils # (Auto) 7.0 1.8-7.8 X 10^3 Lymphocytes # (Auto) 1.8 1.0-4.0 X 10^3 Monocytes # (Auto) 0.4 0.0-1.0 X 10^3 Eosinophils # (Auto) 0.0 0.0-0.3 10^3/uL Basophils # (Auto) 0.2 H 0.0-0.1 10^3/uL Prothrombin Time 13.8 12.2-14.7 SEC INR Comment 1.1 0.8-1.4 Activated Partial Thromboplast Time 25 24-35 SEC Sodium Level 138 135-145 MMOL/L Potassium Level 3.7 3.6-5.0 MMOL/L Chloride Level 99 98-107 MMOL/L Carbon Dioxide Level 26 21-32 MMOL/L Anion Gap 13 5-14 MMOL/L Blood Urea Nitrogen 16 7-18 MG/DL Creatinine 1.29 0.60-1.30 MG/DL Estimat Glomerular Filtration Rate 41 BUN/Creatinine Ratio 12 Glucose Level 403 *H 70-105 MG/DL Calcium Level 8.3 L 8.5-10.1 MG/DL Corrected Calcium 8.6 8.5-10.1 MG/DL Total Bilirubin 0.7 0.1-1.0 MG/DL Aspartate Amino Transf (AST/SGOT) 69 H 5-34 U/L Alanine Aminotransferase (ALT/SGPT) 75 H 0-55 U/L Alkaline Phosphatase 61 40-136 U/L Troponin I < 0.028 <0.028 NG/ML Total Protein 6.4 6.4-8.2 GM/DL Albumin 3.6 3.2-4.5 GM/DL Lactic Acid Level 2.42 *H 0.50-2.00 MMOL/L Urine Color YELLOW Urine Clarity SL CLOUDY Urine pH 5 5-9 Urine Specific [place] 1.015 L 1.016-1.022 Urine Protein 2+ H NEGATIVE Urine Glucose (UA) 4+ H NEGATIVE Urine Ketones 1+ H NEGATIVE Urine Nitrite NEGATIVE NEGATIVE Urine Bilirubin NEGATIVE NEGATIVE Urine Urobilinogen NORMAL NORMAL MG/DL Urine Leukocyte Esterase NEGATIVE NEGATIVE Urine RBC (Auto) NEGATIVE NEGATIVE Urine RBC NONE /HPF Urine WBC RARE /HPF Urine Squamous Epithelial Cells 2-5 /HPF Urine Crystals NONE /LPF Urine Bacteria TRACE /HPF Urine Casts PRESENT /LPF Urine Hyaline Casts 5-10 H /LPF Urine Mucus SMALL H /LPF Urine Yeast MODERATE H /HPF Urine Culture Indicated NO Micro Results Microbiology 01/13/19 Influenza Types A,B Antigen (DYLAN) - Final, Complete My Orders Orders - HILL VIGIL MD Cbc With Automated Diff (01/13/19 14:27) Comprehensive Metabolic Panel (01/13/19 14:27) Blood Culture (01/13/19 14:27) Sputum Culture (01/13/19 14:27) Urinalysis (01/13/19 14:27) Urine Culture (01/13/19 14:) Protime With Inr (01/13/19:) Partial Thromboplastin Time (01/13/19 14:27) Chest 1 View, Ap/Pa Only (01/13/19 14:27) Saline Lock/Iv-Start (01/13/19 14:27) Ekg Tracing (01/13/19 14:27) Troponin I (01/13/19 14:27) Vital Signs Adult Sepsis Patie Q15M (01/13/19 14:27) O2 (01/13/19 14:27) Remove Rings In Anticipation O (01/13/19 14:27) Lactic Acid Analyzer (01/13/19 14:27) Influenza A And B Antigens (01/13/19 14:27) Ondansetron Injection (Zofran Injectio (01/13/19 14:30) Ns Iv 1000 Ml (Sodium Chloride 0.9%) (01/13/19 14:27) Ct Head/Cervical Spine Wo (01/13/19 14:27) Insulin (Regular) Human (Humulin R (Per (01/13/19 14:32) Saline Lock/Iv-Start (01/13/19 14:52) Ns Iv 1000 Ml (Sodium Chloride 0.9%) (01/13/19 14:52) Ondansetron Injection (Zofran Injectio (01/13/19 14:17) Ns Iv 1000 Ml (Sodium Chloride 0.9%) (01/13/19 14:52) Ns Iv 1000 Ml (Sodium Chloride 0.9%) (01/13/19 15:52) Meropenem (Merrem 500 Mg) (01/13/19 16:15) Fluconazole Tablet (Ed Only) (Diflucan T (01/13/19 16:44) Medications Given in ED Current Medications Medications Dose Ordered Sig/Rigo Route Start Time Stop Time Status Last Admin Dose Admin Meropenem 500 mg/ Sterile Water 10 ml @ 200 mls/hr ONCE ONCE IV 01/13/19 16:15 01/13/19 16:17 DC 01/13/19 16:39 200 MLS/HR Ondansetron HCl 8 mg ONCE ONCE IVP 01/13/19 14:30 01/13/19 14:31 DC 01/13/19 14:22 8 MG Vital Signs/I&O 01/13/19 01/13/19 14:13 14:13 Temp 98.0 Pulse 89 Resp 28 B/P (MAP) 103/75 (84) Pulse Ox 91 89 O2 Delivery Nasal Cannula Room Air O2 Flow Rate 2.00 Capillary Refill : Less Than 3 Seconds Blood Pressure Mean: 84 Progress Note : Progress Note Seen and evaluated. IV, labs, UA, saline 1 L bolus, Zofran 8 mg IV, blood cultures and lactic acid ordered. Records reviewed from previous visit. She was apparently discharged on Levaquin. Patient has findings concerning for sepsis. Blood pressure on the low end of normal but still in the normal range. Monitor patient. 1500: Patient noted to have blood pressure 83 systolic. In the setting of pneumonia as noted on the chest x-ray, patient meets findings for severe sepsis. Lactic acid pending. We will go ahead and give 2 additional liters of normal saline to exceed the 30 mL/kg requirement and monitor for improvement of blood pressure. She will have second IV established. [place] neb ordered. Monitor patient. 1616: Patient is doing much better overall with blood pressure remaining 110s to 120s systolic since initiation of fluids. Lactic acid is mildly elevated. I discussed the case with Dr. Armstrong. We will initiate meropenem due to allergies and failure of Levaquin. Patient to be admitted. Ultimately I believe the patient is stable for med telemetry admission and Dr. Armstrong agrees at this point. We will await UA and make final determination. 1655 : UA is obtained and shows no significant findings other than yeast and concentration. Diflucan 150 mg by mouth was ordered. Patient tolerating by mouth fluids now. Admit, inpatient status. Patient agrees with plan. ECG Initial ECG Impression Date: Jan 13, 2019 Initial ECG Impression Time: 14:21 Initial ECG Rate: 94 Initial ECG Rhythm: Normal Sinus Comment Sinus rhythm with normal axis. Inferior Q waves noted. No evidence of ST elevation [place]. Similar to 01/08/19. To by me. Diagnostic Imaging Diagonstic Imaging: Xray Plain Films/CT/US/NM/MRI: chest Comments Question of right lower lobe infiltrate Reviewed: Reviewed by Me, Discussed w/Radiologist Diagonstic Imaging: CT Plain Films/CT/US/NM/MRI: c-spine, head Comments NAME: BERT DONOVAN [facility] REC#: [id number] PT STATUS: REG ER : 1950 PHYSICIAN: HILL VIGIL MD ADMIT DATE: 01/13/19/ER Signed Date of Exam: 01/13/19 CT HEAD/CERVICAL SPINE WO PROCEDURE: CT head and CT cervical spine without contrast. TECHNIQUE: Multiple contiguous axial images were obtained through the brain and cervical spine without the use of intravenous contrast. Sagittal and coronal reformations through the cervical spine were then performed. INDICATION: Possible seizure. COMPARISON: Correlation is made with head CT from 08/10/2017. CT HEAD: The ventricles and sulci are within normal limits. No sulcal effacement, midline shift, or hemorrhage is detected. Cisterns are patent. The visualized paranasal sinuses are clear. IMPRESSION: No acute intracranial process is detected. CT CERVICAL SPINE: There is straightening of the normal cervical lordotic curvature. Minimal retrolisthesis of C4 on C5 is noted. There is significant degenerative disc disease at C4-5, C5-6, and C6-7 levels with disc space narrowing and marginal spurring. No fractures are identified. Odontoid is intact. Prevertebral tissues are within normal limits. There appears to be some mild patchy ground-glass infiltrates in the right lung apex. IMPRESSION: 1. Cervical spondylosis. No acute bony abnormality is detected. 2. Mild patchy ground-glass right upper lobe pulmonary infiltrates. Dictated by: Dictated on workstation # [id number] Dict: 01/13/19 1554 Trans: 01/13/19 1558 Interpreted by: MARVIN MAYERS MD Electronically signed by: MARVIN MAYERS MD 01/13/19 1558 Departure Communication (Admissions) Time/Spoke to Admitting Phy: 16:16 Impression Primary Impression: Pneumonia Qualified Codes: J18.1 - Lobar pneumonia, unspecified organism Additional Impressions: Uncontrolled diabetes mellitus Qualified Codes: E11.65 - Type 2 diabetes mellitus with hyperglycemia Yeast UTI Disposition: ADMITTED INPATIENT Condition: Stable Admissions Decision to Admit Reason: Admit from ER (General) Decision to Admit/Date: Jan 13, 2019 Time/Decision to Admit Time: 16:16 Departure-Patient Inst. Referrals: [facility] (PCP) Primary Care Physician NALINI GOMEZ (Family) Primary Care Physician HILL VIGIL MD Jan 13, 2019 15:08
--- NOTE | 2019-01-13 15:14 | NUR ---
JESSI CALLED PER PT REQUEST AND UPDATED ON HER CONDITION.
[2019-01-13] MEDS: NS IV 1000 ML 1,000 ML IV SCH ×3 (15:59→18:58)
--- NOTE | 2019-01-13 15:59 | Diagnostic Imaging Report ---
PROCEDURE: CT head and CT cervical spine without contrast. TECHNIQUE: Multiple contiguous axial images were obtained through the brain and cervical spine without the use of intravenous contrast. Sagittal and coronal reformations through the cervical spine were then performed. INDICATION: Possible seizure. COMPARISON: Correlation is made with head CT from 08/10/2017. CT HEAD: The ventricles and sulci are within normal limits. No sulcal effacement, midline shift, or hemorrhage is detected. Cisterns are patent. The visualized paranasal sinuses are clear. IMPRESSION: No acute intracranial process is detected. CT CERVICAL SPINE: There is straightening of the normal cervical lordotic curvature. Minimal retrolisthesis of C4 on C5 is noted. There is significant degenerative disc disease at C4-5, C5-6, and C6-7 levels with disc space narrowing and marginal spurring. No fractures are identified. Odontoid is intact. Prevertebral tissues are within normal limits. There appears to be some mild patchy ground-glass infiltrates in the right lung apex. IMPRESSION: 1. Cervical spondylosis. No acute bony abnormality is detected. 2. Mild patchy ground-glass right upper lobe pulmonary infiltrates. Dictated by: Dictated on workstation # [id number]
--- NOTE | 2019-01-13 16:08 | NUR ---
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
[2019-01-13] MEDS ORDERED: MEROPENEM 500 MG in WATER (STERILE) FOR INJECTION 10 ML IV ONE (16:15)
[2019-01-13 16:31] LABS: BILIRUBIN,URINE NEGATIVE (NEGATIVE); COLOR,URINE YELLOW; GLUCOSE, URINE (UA) 4+ (NEGATIVE); KETONES,URINE 1+ (NEGATIVE); LEUKOCYTE ESTERASE ,URINE NEGATIVE (NEGATIVE); NITRITE,URINE NEGATIVE (NEGATIVE); PH,URINE 5 (5-9); PROTEIN,URINE 2+ (NEGATIVE); UROBILINOGEN,URINE NORMAL (NORMAL)
[2019-01-13 16:38] LABS: BACTERIA,URINE TRACE /HPF; CLARITY,URINE SL CLOUDY; WBC,URINE RARE /HPF; YEAST,URINE MODERATE /HPF
[2019-01-13] MEDS ORDERED: FLUCONAZOLE 150 MG TABLET (ED ONLY) PO STA (16:44)
--- NOTE | 2019-01-13 17:00 | NUR ---
DR VIGIL CONTACTED [employer]GS[employer] OPENER FOR A ROOM AND WAS GIVEN ONE
[2019-01-13] MEDS ORDERED: ACETAMINOPHEN 500 MG TAB (TYLENOL) PO PRN (18:00)
[2019-01-13] MEDS ORDERED: ONDANSETRON 4 MG/2 ML (SDV) Z0FRAN IV PRN (18:00)
[2019-01-13 18:25] VITALS: BP 126/76
[2019-01-13] MEDS ORDERED: FLU QUADRIvalent (5+ YOA) 2018-2019 (AFLURIA) 0.5 ML IM ONE (18:45)
--- NOTE | 2019-01-13 18:51 | NUR ---
Bert Garcia admitted to room 411-1, with an admitting diagnosis of Pneumonia and UTI, on 01/13/19 from ED via stretcher, accompanied by Staff.BERT GARCIA introduced to surroundings, call light, bed controls, phone, TV, temperature control, lights, meal times, smoking policy, visitor policy, side rail policy, bathrooms and showers. Patient Rights given to patient in the handbook.BERT GARCIA verbalizes understanding that [facility] is not responsible for the loss or damage to any personal effects or valuables that are kept in the patients posession during their hospitalization. The following Patient Care Plans were discussed with the Patient: Discharge Planning, Pneumonia. BERT GARCIA verbalizes understanding of Interdisciplinary Patient Education.
[2019-01-13] MEDS: inSUlin ASPART (NovoLOG) 1 UNIT/0.01 ML (CHARGE PER UNIT) SC SCH (21:05)
[2019-01-13 23:21] VITALS: BP 126/76
[2019-01-13] MEDS: MEROPENEM 500 MG/SWFI 10 ML IV PUSH IV SCH ×2 (23:29)
[2019-01-14] VITALS: BP 108/70
[2019-01-14] MEDS: NS IV 1000 ML 1,000 ML IV SCH ×3 (03:09→21:22)
[2019-01-14] MEDS: RT-ALBUTEROL/IPRATROPIUM 3 ML (DUONEB) VIAL INH SCH ×6 (03:17→22:59)
[2019-01-14 04:00] VITALS: BP 146/74
[2019-01-14 05:13] LABS: BASOPHILS % (AUTO) 1 % (0-10); EOSINOPHILS # (AUTO) 0.1 10^3/uL (0.0-0.3); EOSINOPHILS % (AUTO) 2 % (0-10); HEMATOCRIT 38 % (35-52); HEMOGLOBIN 12.4 G/DL (11.5-16.0); LYMPHOCYTES # (AUTO) 2.3 X 10^3 (1.0-4.0); LYMPHOCYTES % (AUTO) 40 % (12-44); MEAN CORPUSCULAR HEMOGLOBIN 29 PG (25-34); MEAN CORPUSCULAR HGB CONC 33 G/DL (32-36); MEAN CORPUSCULAR VOLUME 90 FL (80-99); MEAN PLATELET VOLUME 9.4 FL (7.4-10.4); MONOCYTES # (AUTO) 0.4 X 10^3 (0.0-1.0); MONOCYTES % (AUTO) 8 % (0-12); NEUTROPHILS # (AUTO) 2.9 X 10^3 (1.8-7.8); NEUTROPHILS % (AUTO) 50 % (42-75); PLATELET COUNT 188 10^3/uL (130-400); WHITE BLOOD COUNT 5.7 10^3/uL (4.3-11.0)
[2019-01-14 05:42] LABS: ALANINE AMINOTRANSFERASE 50 U/L (0-55); ALBUMIN 2.9 GM/DL (3.2-4.5); ALKALINE PHOSPHATASE 49 U/L (40-136); BILIRUBIN,TOTAL 0.4 MG/DL (0.1-1.0); BUN/CREATININE RATIO 14; CALCIUM 7.6 MG/DL (8.5-10.1); CARBON DIOXIDE 23 MMOL/L (21-32); CHLORIDE 107 MMOL/L (98-107); CREATININE SERUM 0.71 MG/DL (0.60-1.30); GFR ESTIMATED > 60; GLUCOSE 137 MG/DL (70-105); POTASSIUM 3.3 MMOL/L (3.6-5.0); SODIUM 141 MMOL/L (135-145); TOTAL PROTEIN 5.2 GM/DL (6.4-8.2)
[2019-01-14] MEDS: inSUlin ASPART (NovoLOG) 1 UNIT/0.01 ML (CHARGE PER UNIT) SC SCH ×4 (06:02→21:03)
[2019-01-14] MEDS: MEROPENEM 500 MG/SWFI 10 ML IV PUSH IV SCH ×8 (06:02→23:37)
--- NOTE | 2019-01-14 06:03 | History & Physicial (CHS) ---
HPI History of Present Illness: 68-year-old female admitted through emergency department during the afternoon of January 13, 2019 with right-sided basilar pneumonia or infiltrates. According the family they thought perhaps she had had a seizure. She hadn't been feeling well for several days and she was recently in the hospital with suspected pneumonia. She has been weak and felt like she was going to pass out. She apparently had struck her head on the floor. Patient is a known diabetic but blood glucose was noted to be 394 by EMS. She did complain of some chest tightness and had received aspirin in route to hospital. Source: patient Exam Limitations: clinical condition Date seen by provider: Jan 14, 2019 Time Seen by Provider: 07:00 Attending Physician Claudine Guy MD [facility] Consult Date of Admission Jan 13, 2019 at 16:36 Home Medications Home Medications Reviewed patient Home Medication Reconciliation performed by pharmacy medication reconciliations biology specimen technician and/or nursing. Patients Allergies have been reviewed. Allergies Coded Allergies: Penicillins (Unverified Allergy, Unknown, ANAPHALYTIC SHOCK, 03/20/14) ceftriaxone (Unverified Allergy, Unknown, 02/03/13) ceftriaxone sodium (Verified Allergy, Unknown, 03/20/14) KRD-Fmorsw-[id number] Hx Patient Social History Alcohol Use: Denies Use Recreational Drug Use: No Smoking Status: Former Smoker Former smoker/When Quit: Aug 23, 1970 Type Used: Cigarettes 2nd Hand Smoke Exposure: No Recent Foreign Travel: No Contact w/other who traveled: No Recent Hopitalizations: Yes (PNEUMONA 12/28/18) Recent Infectious Disease Expo: No Physical Abuse Screen: No Sexual Abuse: No Immunizations Up To Date Tetanus Booster (TDap): Unknown Date of Pneumonia Vaccine: March 24, 2012 Date of Influenza Vaccine: Aug 21, 2013 Family Medical History Family History: Cancer G8 SISTER Cataract 19 MOTHER Family history: Arthritis 19 MOTHER G8 SISTER Family history: Diabetes mellitus 19 FATHER 19 MOTHER G8 BROTHER G8 SISTER Family history: Hypertension 19 FATHER 19 MOTHER Family history: Thyroid disorder 19 MOTHER Hearing loss G8 BROTHER Myocardial infarction 19 FATHER 19 MOTHER Parkinson's disease 19 MOTHER No Family History of: Abdominal aortic aneurysm Alcoholism Family history: Alzheimer's disease Family history: Asthma Family history: Gastrointestinal disease Hereditary disease History of - anemia History of - respiratory disease Kidney disease Prostate cancer Psychotic disorder Seizure disorder Stroke Review of Systems (CHC) Constitutional: see HPI Reviewed Test Results Reviewed Test Results Lab Laboratory Tests Test 01/13/19 14:20 01/13/19 15:00 01/13/19 16:25 01/13/19 16:53 Range/Units White Blood Count 9.3 4.3-11.0 10^3/uL Red Blood Count 5.21 4.35-5.85 10^6/uL Hemoglobin 15.0 11.5-16.0 G/DL Hematocrit 46 35-52 % Mean Corpuscular Volume 89 80-99 FL Mean Corpuscular Hemoglobin 29 25-34 PG Mean Corpuscular Hemoglobin Concent 33 32-36 G/DL Red Cell Distribution Width 13.9 10.0-14.5 % Platelet Count 236 130-400 10^3/uL Mean Platelet Volume 9.7 7.4-10.4 FL Neutrophils (%) (Auto) 75 42-75 % Lymphocytes (%) (Auto) 19 12-44 % Monocytes (%) (Auto) 5 0-12 % Eosinophils (%) (Auto) 0 0-10 % Basophils (%) (Auto) 2 0-10 % Neutrophils # (Auto) 7.0 1.8-7.8 X 10^3 Lymphocytes # (Auto) 1.8 1.0-4.0 X 10^3 Monocytes # (Auto) 0.4 0.0-1.0 X 10^3 Eosinophils # (Auto) 0.0 0.0-0.3 10^3/uL Basophils # (Auto) 0.2 H 0.0-0.1 10^3/uL Prothrombin Time 13.8 12.2-14.7 SEC INR Comment 1.1 0.8-1.4 Activated Partial Thromboplast Time 25 24-35 SEC Sodium Level 138 135-145 MMOL/L Potassium Level 3.7 3.6-5.0 MMOL/L Chloride Level 99 98-107 MMOL/L Carbon Dioxide Level 26 21-32 MMOL/L Anion Gap 13 5-14 MMOL/L Blood Urea Nitrogen 16 7-18 MG/DL Creatinine 1.29 0.60-1.30 MG/DL Estimat Glomerular Filtration Rate 41 BUN/Creatinine Ratio 12 Glucose Level 403 *H 70-105 MG/DL Calcium Level 8.3 L 8.5-10.1 MG/DL Corrected Calcium 8.6 8.5-10.1 MG/DL Total Bilirubin 0.7 0.1-1.0 MG/DL Aspartate Amino Transf (AST/SGOT) 69 H 5-34 U/L Alanine Aminotransferase (ALT/SGPT) 75 H 0-55 U/L Alkaline Phosphatase 61 40-136 U/L Troponin I < 0.028 <0.028 NG/ML Total Protein 6.4 6.4-8.2 GM/DL Albumin 3.6 3.2-4.5 GM/DL Lactic Acid Level 2.42 *H 0.50-2.00 MMOL/L Urine Color YELLOW Urine Clarity SL CLOUDY Urine pH 5 5-9 Urine Specific [place] 1.015 L 1.016-1.022 Urine Protein 2+ H NEGATIVE Urine Glucose (UA) 4+ H NEGATIVE Urine Ketones 1+ H NEGATIVE Urine Nitrite NEGATIVE NEGATIVE Urine Bilirubin NEGATIVE NEGATIVE Urine Urobilinogen NORMAL NORMAL MG/DL Urine Leukocyte Esterase NEGATIVE NEGATIVE Urine RBC (Auto) NEGATIVE NEGATIVE Urine RBC NONE /HPF Urine WBC RARE /HPF Urine Squamous Epithelial Cells 2-5 /HPF Urine Crystals NONE /LPF Urine Bacteria TRACE /HPF Urine Casts PRESENT /LPF Urine Hyaline Casts 5-10 H /LPF Urine Mucus SMALL H /LPF Urine Yeast MODERATE H /HPF Urine Culture Indicated NO Glucometer 275 H 70-110 MG/DL Test 01/13/19 17:46 01/13/19 20:33 01/14/19 05:02 01/14/19 05:18 Range/Units Lactic Acid Level 1.59 0.50-2.00 MMOL/L Glucometer 242 H 135 H 70-110 MG/DL White Blood Count 5.7 4.3-11.0 10^3/uL Red Blood Count 4.21 L 4.35-5.85 10^6/uL Hemoglobin 12.4 11.5-16.0 G/DL Hematocrit 38 35-52 % Mean Corpuscular Volume 90 80-99 FL Mean Corpuscular Hemoglobin 29 25-34 PG Mean Corpuscular Hemoglobin Concent 33 32-36 G/DL Red Cell Distribution Width 14.0 10.0-14.5 % Platelet Count 188 130-400 10^3/uL Mean Platelet Volume 9.4 7.4-10.4 FL Neutrophils (%) (Auto) 50 42-75 % Lymphocytes (%) (Auto) 40 12-44 % Monocytes (%) (Auto) 8 0-12 % Eosinophils (%) (Auto) 2 0-10 % Basophils (%) (Auto) 1 0-10 % Neutrophils # (Auto) 2.9 1.8-7.8 X 10^3 Lymphocytes # (Auto) 2.3 1.0-4.0 X 10^3 Monocytes # (Auto) 0.4 0.0-1.0 X 10^3 Eosinophils # (Auto) 0.1 0.0-0.3 10^3/uL Basophils # (Auto) 0.0 0.0-0.1 10^3/uL Sodium Level 141 135-145 MMOL/L Potassium Level 3.3 L 3.6-5.0 MMOL/L Chloride Level 107 98-107 MMOL/L Carbon Dioxide Level 23 21-32 MMOL/L Anion Gap 11 5-14 MMOL/L Blood Urea Nitrogen 10 7-18 MG/DL Creatinine 0.71 0.60-1.30 MG/DL Estimat Glomerular Filtration Rate > 60 BUN/Creatinine Ratio 14 Glucose Level 137 H 70-105 MG/DL Calcium Level 7.6 L 8.5-10.1 MG/DL Corrected Calcium 8.5 8.5-10.1 MG/DL Total Bilirubin 0.4 0.1-1.0 MG/DL Aspartate Amino Transf (AST/SGOT) 38 H 5-34 U/L Alanine Aminotransferase (ALT/SGPT) 50 0-55 U/L Alkaline Phosphatase 49 40-136 U/L Total Protein 5.2 L 6.4-8.2 GM/DL Albumin 2.9 L 3.2-4.5 GM/DL Radiology NAME: BERT DONOVAN [facility] REC#: [id number] PT STATUS: REG ER : 1950 PHYSICIAN: HILL VIGIL MD ADMIT DATE: 01/13/19/ER Signed Date of Exam: 01/13/19 CHEST 1 VIEW, AP/PA ONLY INDICATION: Pneumonia and possible seizure. TIME OF EXAM: 02:49 p.m. Correlation is made with prior study from 01/11/2019. 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 There is some minimal patchy increased density to the right base, which may represent some mild infiltrate There is no evidence of failure. No effusion or pneumothorax is identified. IMPRESSION: Findings suggestive of mild patchy right basilar infiltrate. Dictated by: Dictated on workstation # [id number] Dict: 01/13/19 1502 Trans: 01/13/19 1555 Interpreted by: MARVIN MAYERS MD Electronically signed by: MARVIN MAYERS MD 01/13/19 1558 Physical Exam-(CHC) Physical Exam Vital Signs VS - Last 72 Hours, by Label 01/13/19 01/13/19 01/13/19 01/13/19 14:13 14:13 17:20 18:25 Temp 98.0 96.8 97.7 Pulse 89 82 78 Resp 28 16 20 B/P (MAP) 103/75 (84) 111/68 (82) 126/76 (93) Pulse Ox 91 89 96 98 O2 Delivery Nasal Cannula Room Air Nasal Cannula Nasal Cannula O2 Flow Rate 2.00 2.00 4.00 01/13/19 01/13/19 01/13/19 01/13/19 18:35 20:00 23:00 23:21 Pulse 74 Pulse Ox 94 O2 Delivery Nasal Cannula Nasal Cannula Nasal Cannula O2 Flow Rate 2.00 2.00 3.00 FiO2 28 01/14/19 01/14/19 01/14/19 01/14/19 00:00 00:01 03:18 04:00 Temp 98.5 97.7 Pulse 74 77 64 Resp 21 20 B/P (MAP) 108/70 (83) 146/74 (98) Pulse Ox 96 95 95 O2 Delivery Nasal Cannula Nasal Cannula Nasal Cannula O2 Flow Rate 2.00 3.00 3.00 3.00 01/14/19 06:52 Pulse 76 Capillary Refill : Less Than 3 SecondsLess Than 3 Seconds General Appearance: no apparent distress Eyes: Bilateral Eye Normal Inspection HEENT: pharynx normal Neck: non-tender, supple Respiratory: rales (Noted in the right base) Cardiovascular: normal peripheral pulses Gastrointestinal: soft Rectal: deferred Back: normal inspection Neurologic/Psychiatric: alert, normal mood/affect, oriented x 3 Skin: normal color Assessment/Plan Assessment/Plan Admission Dx 1. Right basilar pneumonia 2. Fall with head injury 3. Diabetes mellitus Admission Status: Inpatient Order (span 2 midnights) Reason for Inpatient Admission: Further antibiotic care to treat right basilar infiltrates Assessment & Plan 1. Right basilar pneumonia -Initiation of meropenem -Breathing treatments per RT 2. Fall with head injury -CT of head was noted to be negative 3. Diabetes mellitus -Sliding-scale insulin if needed and return to home therapy as she improves Clinical Quality Measures DVT/VTE Risk/Contraindication: Risk Factor Score Per Nursin RFS Level Per Nursing on Admit: 4+=Very High HILARY DEMARCO MD Jan 14, 2019 06:03
[2019-01-14 08:00] VITALS: BP 146/83
[2019-01-14] MEDS ORDERED: FLU QUADRIvalent (5+ YOA) 2018-2019 (AFLURIA) 0.5 ML IM ONE (08:59)
[2019-01-14] MEDS ORDERED: FESO8TAB PO (10:51)
[2019-01-14] MEDS ORDERED: LEVO750T39 PO (11:00)
--- NOTE | 2019-01-14 11:03 | NUR ---
Spoke to patient she had an old list with her. Verified with external medication history and called the pharmacy.
[2019-01-14 12:00] VITALS: BP 120/63
[2019-01-14 15:50] VITALS: BP 137/73
[2019-01-14 20:21] VITALS: BP 124/65
[2019-01-15] VITALS (8 sets, daily range): BP systolic 130–158; BP diastolic 61–81
[2019-01-15] MEDS: RT-ALBUTEROL/IPRATROPIUM 3 ML (DUONEB) VIAL INH SCH ×6 (01:33→23:35)
[2019-01-15 05:46] LABS: BASOPHILS % (AUTO) 0 % (0-10); EOSINOPHILS # (AUTO) 0.1 10^3/uL (0.0-0.3); EOSINOPHILS % (AUTO) 1 % (0-10); HEMATOCRIT 38 % (35-52); HEMOGLOBIN 12.2 G/DL (11.5-16.0); LYMPHOCYTES # (AUTO) 2.4 X 10^3 (1.0-4.0); LYMPHOCYTES % (AUTO) 41 % (12-44); MEAN CORPUSCULAR HEMOGLOBIN 29 PG (25-34); MEAN CORPUSCULAR HGB CONC 32 G/DL (32-36); MEAN CORPUSCULAR VOLUME 90 FL (80-99); MEAN PLATELET VOLUME 9.6 FL (7.4-10.4); MONOCYTES # (AUTO) 0.4 X 10^3 (0.0-1.0); MONOCYTES % (AUTO) 7 % (0-12); NEUTROPHILS # (AUTO) 2.9 X 10^3 (1.8-7.8); NEUTROPHILS % (AUTO) 50 % (42-75); PLATELET COUNT 200 10^3/uL (130-400); RED CELL DISTRIBUTION WIDTH 13.8 % (10.0-14.5); WHITE BLOOD COUNT 5.7 10^3/uL (4.3-11.0)
[2019-01-15] MEDS: MEROPENEM 500 MG/SWFI 10 ML IV PUSH IV SCH ×8 (05:49→23:39)
[2019-01-15 06:06] LABS: BUN/CREATININE RATIO 7; CALCIUM 7.7 MG/DL (8.5-10.1); CARBON DIOXIDE 26 MMOL/L (21-32); CHLORIDE 105 MMOL/L (98-107); CREATININE SERUM 0.73 MG/DL (0.60-1.30); GFR ESTIMATED > 60; GLUCOSE 174 MG/DL (70-105); SODIUM 143 MMOL/L (135-145)
[2019-01-15] MEDS: NS IV 1000 ML 1,000 ML IV SCH ×2 (06:40→17:29)
[2019-01-15] MEDS: inSUlin ASPART (NovoLOG) 1 UNIT/0.01 ML (CHARGE PER UNIT) SC SCH ×4 (06:40→20:10)
--- NOTE | 2019-01-15 08:38 | Progress Note (SOAP) ---
Subjective Subjective/Events-last exam Patient is without any significant shortness of breath. She continues to have a cough. Her appetite is fine and she is drinking plenty of fluids. Review of Systems Date Seen by Provider: Jan 15, 2019 Time Seen by Provider: 07:50 Focused Exam Lactate Level 01/13/19 15:00: Lactic Acid Level 2.42*H 01/13/19 17:46: Lactic Acid Level 1.59 Objective Exam Last Set of Vital Signs Vital Signs Date Time Temp Pulse Resp B/P (MAP) Pulse Ox O2 Delivery O2 Flow Rate FiO2 01/15/19 07:02 95 01/15/19 06:29 95 Nasal Cannula 1.00 01/15/19 04:17 98.0 20 149/77 (101) 01/13/19 23:21 28 Capillary Refill : Less Than 3 SecondsLess Than 3 Seconds I&O Intake and Output 01/15/19 00:00 Intake Total 8330 ml Output Total 1100 ml Balance 7230 ml Intake Oral 2310 ml IV Total 6020 ml Output Urine Total 1100 ml # Voids 6 General: No Acute Distress Lungs: Clear to Auscultation (Except for Rales in right lower base) Heart: Regular Rate Abdomen: Soft Skin: No Rashes Neuro: Normal Speech Results/Procedures Lab Laboratory Tests 01/14/19 11:18: Glucometer 196H 01/14/19 15:59: Glucometer 244H 01/14/19 20:24: Glucometer 171H 01/15/19 05:08: White Blood Count 5.7, Red Blood Count 4.21L, Hemoglobin 12.2, Hematocrit 38, Mean Corpuscular Volume 90, Mean Corpuscular Hemoglobin 29, Mean Corpuscular Hemoglobin Concent 32, Red Cell Distribution Width 13.8, Platelet Count 200, Mean Platelet Volume 9.6, Neutrophils (%) (Auto) 50, Lymphocytes (%) (Auto) 41, Monocytes (%) (Auto) 7, Eosinophils (%) (Auto) 1, Basophils (%) (Auto) 0, Neutrophils # (Auto) 2.9, Lymphocytes # (Auto) 2.4, Monocytes # (Auto) 0.4, Eosinophils # (Auto) 0.1, Basophils # (Auto) 0.0, Sodium Level 143, Potassium Level 3.0L, Chloride Level 105, Carbon Dioxide Level 26, Anion Gap 12, Blood Urea Nitrogen 5L, Creatinine 0.73, Estimat Glomerular Filtration Rate > 60, BUN/ Creatinine Ratio 7, Glucose Level 174H, Calcium Level 7.7L 01/15/19 05:55: Glucometer 176H Microbiology 01/13/19 Blood Culture - Preliminary, Resulted No growth 01/13/19 Influenza Types A,B Antigen (DYLAN) - Final, Complete 01/13/19 Urine Culture - Final, Complete NO GROWTH Radiology NAME: BERT DONOVAN [facility] REC#: [id number] PT STATUS: REG ER : 1950 PHYSICIAN: HILL VIGIL MD ADMIT DATE: 01/13/19/ER Signed Date of Exam: 01/13/19 CHEST 1 VIEW, AP/PA ONLY INDICATION: Pneumonia and possible seizure. TIME OF EXAM: 02:49 p.m. Correlation is made with prior study from 01/11/2019. 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 There is some minimal patchy increased density to the right base, which may represent some mild infiltrate There is no evidence of failure. No effusion or pneumothorax is identified. IMPRESSION: Findings suggestive of mild patchy right basilar infiltrate. Dictated by: Dictated on workstation # [id number] Dict: 01/13/19 1502 Trans: 01/13/19 1551 Interpreted by: MARVIN MAYERS MD Electronically signed by: MARVIN MAYERS MD 01/13/19 1559 Assessment/Plan Assessment/Plan Assessment & Plan 1. Right basilar pneumonia -Initiation of meropenem -Breathing treatments per RT 01/15 -Day number 2 meropenem 2. Fall with head injury -CT of head was noted to be negative 3. Diabetes mellitus -Sliding-scale insulin if needed and return to home therapy as she improves 01/15 -IV fluids decreased to 80 mL per hour Clinical Quality Measures DVT/VTE Risk/Contraindication: Risk Factor Score Per Nursin RFS Level Per Nursing on Admit: 4+=Very High HILARY DEMARCO MD Jan 15, 2019 08:38
[2019-01-15] MEDS ORDERED: HYDROcodone/APAP 10 MG/325 MG (LORTAB) TAB PO PRN (08:45)
[2019-01-15] MEDS: LOSARTAN 50 MG (COZAAR) TAB PO SCH (09:35)
[2019-01-15] MEDS: rOPINIRole 1 MG (REQUIP) TABLET PO SCH (09:35)
[2019-01-15] MEDS: MONTELUKAST 10 MG (SINGULAIR) TAB PO SCH (09:35)
[2019-01-15] MEDS: LEVOTHYROXINE 75 MCG (LEVOTHROID) TABLET PO SCH (09:39)
[2019-01-15] MEDS: LEVOTHYROXINE 100 MCG (LEVOTHROID) TAB PO SCH (09:39)
[2019-01-15] MEDS: metFORMIN 500 MG (GLUCOPHAGE) TAB PO SCH ×2 (09:39→17:26)
[2019-01-15] MEDS: SUCRALFATE 1 GM (CARAFATE) TAB PO SCH ×3 (11:30→20:10)
[2019-01-15] MEDS: ATORVASTATIN 40 MG (LIPITOR) TABLET PO SCH (20:10)
[2019-01-16] MEDS: RT-ALBUTEROL/IPRATROPIUM 3 ML (DUONEB) VIAL INH SCH ×5 (02:30→19:32)
[2019-01-16 03:50] VITALS: BP 156/82
[2019-01-16] MEDS: LEVOTHYROXINE 100 MCG (LEVOTHROID) TAB PO SCH (06:07)
[2019-01-16] MEDS: MEROPENEM 500 MG/SWFI 10 ML IV PUSH IV SCH ×8 (06:07→23:32)
[2019-01-16] MEDS: LEVOTHYROXINE 75 MCG (LEVOTHROID) TABLET PO SCH (06:07)
[2019-01-16] MEDS: SUCRALFATE 1 GM (CARAFATE) TAB PO SCH ×4 (06:08→20:21)
[2019-01-16] MEDS: metFORMIN 500 MG (GLUCOPHAGE) TAB PO SCH ×2 (06:08→16:44)
[2019-01-16] MEDS: inSUlin ASPART (NovoLOG) 1 UNIT/0.01 ML (CHARGE PER UNIT) SC SCH ×4 (06:09→20:26)
[2019-01-16 07:02] VITALS: BP 156/82
[2019-01-16] MEDS ORDERED: RT-ALBUTEROL/IPRATROPIUM 3 ML (DUONEB) VIAL INH PRN (07:15)
[2019-01-16] MEDS: MONTELUKAST 10 MG (SINGULAIR) TAB PO SCH (08:07)
[2019-01-16] MEDS: NS IV 1000 ML 1,000 ML IV SCH (08:07)
[2019-01-16] MEDS: LOSARTAN 50 MG (COZAAR) TAB PO SCH (08:07)
[2019-01-16] MEDS: rOPINIRole 1 MG (REQUIP) TABLET PO SCH (08:07)
[2019-01-16 08:50] VITALS: BP 145/74
--- NOTE | 2019-01-16 08:50 | Progress Note-Hospitalist ---
Subjective HPI/CC On Admission Date Seen by Provider: Jan 16, 2019 Time Seen by Provider: 09:00 Subjective/Events-last exam Pt is doing a little better but had a vomiting spell this morning. Pt is breathing better. Overall felt very weak and came back to the hospital shortly after being discharged last week. Potassium is 3.0 so will replace and will add potassium to the fluid and maintain fluid because she is having a vomiting spell in case she can't tolerate oral fluids. Will initiate PT and OT. May need inpatient rehab but upon further assessment she is walking too well and too independent to meet criteria. Review of Systems General: Fatigue Pulmonary: Dyspnea, Cough Gastrointestinal: Nausea, Vomiting Focused Exam Lactate Level Objective Exam Vital Signs Vital Signs Date Time Temp Pulse Resp B/P (MAP) Pulse Ox O2 Delivery O2 Flow Rate FiO2 01/16/19 19:33 90 Room Air 01/16/19 16:33 97.9 78 18 137/74 (95) 01/15/19 20:00 1.00 01/13/19 23:21 28 Capillary Refill : Less Than 3 SecondsLess Than 3 Seconds General Appearance: No Apparent Distress, WD/WN, Chronically ill HEENT: TMs Normal, Pharynx Normal, Other (abnormal pupil on the left with patient has history of cataract surgery) Neck: Non Tender, Supple Respiratory: No Accessory Muscle Use, Crackles, Decreased Breath Sounds, Expiration, Wheezing Cardiovascular: Regular Rate, Rhythm, No Murmur Gastrointestinal: Non Tender, Soft Back: Normal Inspection, No CVA Tenderness, No Vertebral Tenderness Extremity: Normal Capillary Refill, Normal Range of Motion, Non Tender, No Calf Tenderness Neurologic/Psychiatric: Alert, Oriented x3 Results/Procedures Lab Patient resulted labs reviewed. Assessment/Plan Assessment and Plan Assess & Plan/Chief Complaint Assessment: Pneumonia Plan: Abx Nebs O2 Continue IVF due to vomiting episode this am Diagnosis/Problems Diagnosis/Problems (1) Pneumonia Status: Acute Qualifiers: Pneumonia type: due to unspecified organism Laterality: right Lung location: lower lobe of lung Qualified Codes: J18.1 - Lobar pneumonia, unspecified organism (2) Uncontrolled diabetes mellitus Status: Chronic Qualifiers: Diabetes mellitus type: type 2 Glycemic state: with hyperglycemia Qualified Codes: E11.65 - Type 2 diabetes mellitus with hyperglycemia (3) Nausea and vomiting Status: Acute Qualifiers: Vomiting Intractability: unspecified (4) CAD (coronary artery disease) Status: Chronic Qualifiers: Coronary Disease-Associated Artery/Lesion type: [place] artery [place] vs. transplanted heart: [place] heart Associated angina: without angina Qualified Codes: I25.10 - Atherosclerotic heart disease of [place] coronary artery without angina pectoris (5) Fall Status: Resolved Qualifiers: Encounter type: subsequent encounter Qualified Codes: W19.XXXD - Unspecified fall, subsequent encounter (6) Head injury, closed Status: Acute Qualifiers: Encounter type: subsequent encounter Qualified Codes: S09.90XD - Unspecified injury of head, subsequent encounter (7) Hypokalemia Status: Acute Clinical Quality Measures DVT/VTE Risk/Contraindication: Risk Factor Score Per Nursin RFS Level Per Nursing on Admit: 4+=Very High MERY RAMEY DO Jan 16, 2019 08:50
[2019-01-16] MEDS ORDERED: MAGNESIUM 1 GM/100 ML IVPB 100 ML IV ONE (10:00)
[2019-01-16] MEDS: NS W/KCL 20 MEQ/L 1,000 ML IV SCH ×2 (10:14→22:50)
[2019-01-16] MEDS: POTASSIUM CL 10MEQ/50ML IVPB 50 ML IV SCH ×4 (11:44→14:55)
--- NOTE | 2019-01-16 11:49 | Physical Therapy Evaluation ---
PT Evaluation-General Medical Diagnosis Admission Date Jan 13, 2019 at 16:36 Medical Diagnosis: pneumonia/hyperglycemia Onset Date: Jan 13, 2019 Therapy Diagnosis Therapy Diagnosis: generalized weakness/debility Height/Weight Height (Feet): 5 Height (Inches): 3.00 Weight (Pounds): 213 Weight (Ounces): 0.0 Precautions Precautions/Isolations: Standard Precautions Weight Bear Status Right Lower Extremity: Right Full Weight Bearing Left Lower Extremity: Left Full Weight Bearing Referral Physician: Rudolph Reason for Referral: Evaluation/Treatment Medical History Pertinent Medical History: Arthritis, CABG, CAD, COPD, DM, HTN, Hypothroidism Current History EMS secondary to possible seizure/hit head Reviewed History: Yes Social History Home: Single Level Current Living Status: Other Family Entry Into Home: Level Entry Prior/Core FIM Prior Level of Function Therapy Code Descriptions/Definitions Functional [place] Measure: 0=Not Assessed/NA 4=Minimal Assistance 1=Total Assistance 5=Supervision or Setup 2=Maximal Assistance 6=Modified [place] 3=Moderate Assistance 7=Complete [place] Therapy Quality Codes: 6 Independent with activity with or without an assistive device 5 Patient requires set up or clean up by helper. Patient completes activity by themselves 4 Supervision or touching assist (CGA). [place] provide cues , steadying assist 3 The helper provides less than half the effort to complete the activity 2 The helper provides more than half the effort to complete the activity 1 Dependent. The helper does all the effort to complete an activity 7 Patient refused to complete or attempt activity 9 The patient did not perform the activity before the current illness or injury 88 Not attempted due to Medical conditions or safety concerns Functional Abilities and Goals: Independent: Patient completed the activities by him/herself, with or without an assistive device, with no assistance from a helper. Needed Some Help: Patient needed partial assistance from another person to complete activities. Dependent: A helper completed the activities for the patient. Unknown: Not Applicable: Bed Mobility: 6 Transfers (B,C,W/C) (FIM): 6 Gait: 6 Indoor Mobility (Ambulation): Independent Stairs: Independent Prior Devices Use: Walker PT Evaluation-Current Subjective Patient agrees to PT. No c/o. Pain Numeric Pain Scale: 0-No Pain Location: No Pain Reported Objective Patient Orientation: Person, Time, Situation Problem Solving: Fair Attachments: Oxygen, [place] Catheter, IV ROM/Strength ROM Lower Extremities bilateral LE WFL Strength Lower Extremities 4-/5 grossly bilaterally Integumentary/Posture Integumentary refer to nursing notes Bowel Incontinence: No Bladder Incontinence: [place] Cath Posture WFL Neuromuscular (Tone, Coordination, Reflexes) grossly intact Sensory Vision: Functional Hearing: Functional Sensation Right Lower Extremit: Impaired Sensation Left Lower Extremity: Impaired Transfers Therapy Code Descriptions/Definitions Functional [place] Measure: 0=Not Assessed/NA 4=Minimal Assistance 1=Total Assistance 5=Supervision or Setup 2=Maximal Assistance 6=Modified [place] 3=Moderate Assistance 7=Complete [place] Transfers (B, C, W/C) (FIM): 6 Scootin Rollin Supine to/from Sit: 6 Sit to/from Stand: 6 Gait Mode of Locomotion: Walk Anticipated Mode of Locomotion: Walk Gait (FIM): 6 Distance (FIM): 3=150 ft Distance: 250' Gait Level of Assist: 6 Gait Assistive Device: FWW Comments/Gait Description steady gait sequence with no deviation Balance Sitting Static: Normal Sitting Dynamic: Normal Standing Static: Normal Standing Dynamic: Normal Assessment/Needs 68 y.o. female, will be seen short term by skilled PT to address functional strength and mobility to improve current LOF and to safely return to home with family at maximum LOF Rehab Potential: Fair Post Rehab Potential-Barriers: compliance PT Short Term Goals Short Term Goals Time Frame: Jan 18, 2019 Transfers (B,C,W/C) (FIM): 6 Gait (FIM): 6 Distance (FIM): 3=150 ft Gait Level of Assist: 6 Gait Assistive Device: FWW PT Plan Treatment/Plan Treatment Plan: Continue Plan of Care Treatment Plan: Education, Functional Activity [place], Functional Strength, Gait , Safety, Therapeutic Exercise, Transfers Treatment Duration: Jan 18, 2019 Frequency: 3 times per week Estimated Hrs Per Day: .25 hour per day Patient and/or Family Agrees t: Yes Discharge Recommendations Therapy D/C Recommendations: Home w/ Family Support Time/GCodes Time In: 1051 Time Out: 1102 Total Billed Treatment Time: 11 Total Billed Treatment 1 visit EVLowC 11 min NIKHIL MACIAS PT Jan 16, 2019 11:49
[2019-01-16 12:31] VITALS: BP 140/70
--- NOTE | 2019-01-16 15:56 | Occupational Therapy Eval ---
OT Evaluation-General/PLF Medical Diagnosis Admission Date Jan 13, 2019 at 16:36 Medical Diagnosis: pneumonia/hyperglycemia Onset Date: Jan 13, 2019 Therapy Diagnosis Therapy Diagnosis: weakness Height/Weight Height (Feet): 5 Height (Inches): 3.00 Weight (Pounds): 213 Weight (Ounces): 0.0 Precautions Precautions/Isolations: Standard Precautions Safety Interventions: None Weight Bear Status Weight Bearing Restriction: Full Weight Bearing Location Restriction: L LE, R LE Referral Physician: Rudolph Referral Reason: Activity Tolerance, Evaluation/Treatment, Strengthening/ROM Medical History Pertinent Medical History: Arthritis, CABG, CAD, COPD, DM, HTN, Hypothroidism Social History Home: Single Level Current Living Status: Other Family Entry Into Home: Level Entry ADL-Prior Level of Function Therapy Code Descriptions/Definitions Functional [place] Measure: 0=Not Assessed/NA 4=Minimal Assistance 1=Total Assistance 5=Supervision or Setup 2=Maximal Assistance 6=Modified [place] 3=Moderate Assistance 7=Complete [place] Therapy Quality Codes: 6 Independent with activity with or without an assistive device 5 Patient requires set up or clean up by helper. Patient completes activity by themselves 4 Supervision or touching assist (CGA). [place] provide cues , steadying assist 3 The helper provides less than half the effort to complete the activity 2 The helper provides more than half the effort to complete the activity 1 Dependent. The helper does all the effort to complete an activity 7 Patient refused to complete or attempt activity 9 The patient did not perform the activity before the current illness or injury 88 Not attempted due to Medical conditions or safety concerns Functional Abilities and Goals: Independent: Patient completed the activities by him/herself, with or without an assistive device, with no assistance from a helper. Needed Some Help: Patient needed partial assistance from another person to complete activities. Dependent: A helper completed the activities for the patient. Unknown: Not Applicable: ADL PLOF Comments Pt lives at home with her son & was Independent in all self care tasks & walking with FWW.. OT Current Status Subjective Pt in bed , alert, oriented & agree for OT Eval. Pain Numeric Pain Scale: 0-No Pain Mental Status/Objective Patient Orientation: Person, Place, Time, Situation, Normal For Age Attachments: IV, Saline Lock Current Glasses/Contacts: No Hearing Aids: No Hand Dominance: Right Upper Extremity ROM WFL Upper Extremity Coordination Intact . Upper Extremity Strength MS in BUE -4/5 grossly graded. ADL-Treatment ADL-Current Pt needs SBA in supine to sit in bed & SBA from sit to stand with fww. Unsteady standing balance. Pt needs Min-SBA in all self care tasks . Fatigue soon. MS in BUE -4/5 grossly graded. Therapy Code Descriptions/Definitions Functional [place] Measure: 0=Not Assessed/NA 4=Minimal Assistance 1=Total Assistance 5=Supervision or Setup 2=Maximal Assistance 6=Modified [place] 3=Moderate Assistance 7=Complete [place] Therapy Quality Codes: 6 Independent with activity with or without an assistive device 5 Patient requires set up or clean up by helper. Patient completes activity by themselves 4 Supervision or touching assist (CGA). [place] provide cues , steadying assist 3 The helper provides less than half the effort to complete the activity 2 The helper provides more than half the effort to complete the activity 1 Dependent. The helper does all the effort to complete an activity 7 Patient refused to complete or attempt activity 9 The patient did not perform the activity before the current illness or injury 88 Not attempted due to Medical conditions or safety concerns Eating (FIM): 7 Grooming (FIM): 7 Bathing (FIM): 0 Upper Body Dressing (FIM): 6 Lower Body Dressing (FIM): 5 Toileting (FIM): 7 Transfers (B, C, W/C) (FIM): 5 Toilet/Commode Transfer (FIM): 5 Tub Transfer (FIM): 0 Shower Transfer (FIM): 0 Education OT Patient Education: Correct positioning, Safety issues Teaching Recipient: Patient Teaching Methods: Demonstration Response to Teaching: Verbalize Understanding OT Short Term Goals Short Term Goals Time Frame: Jan 30, 2019 Transfers (B,C,W/C) (FIM): 6 Additional Short Term Goals: 1-Demonstrate ADL Tasks, 2-Verbalize Understanding , 3-ImproveStrength/Jairo 1=Demonstrate adherence to instructed precautions during ADL tasks. 2=Patient will verbalize/demonstrate understanding of assistive devices/ modifications for ADL. 3=Patient will improve strength/tolerance for activity to enable patient to perform ADL's. OT [employer] Goals Intermediate Goals Time Frame: Feb 13, 2019 Eating (FIM): 7 Grooming(FIM): 7 Bathing(FIM): 7 Bathing Location: L Arm, R Arm, L Upper Leg, R Upper Leg, L Lower Leg ( including foot), R Lower Leg (including foot), Chest, Abdomen, Buttocks, Perineal Area Upper Body Dressing(FIM): 7 Lower Body Dressing(FIM): 7 Toileting(FIM): 7 Transfers (B,C,W/C) (FIM): 7 Toilet/Commode Transfer(FIM): 7 Tub Transfer(FIM): 7 Shower Transfer(FIM): 7 Additional Goals: 1-Demonstrate ADL Tasks, 2-Verbalize Understanding, 3- ImproveStrength/Jairo 1=Demonstrate adherence to instructed precautions during ADL tasks. 2=Patient will verbalize/demonstrate understanding of assistive devices/ modifications for ADL. 3=Patient will improve strength/tolerance for activity to enable patient to perform ADL's. OT Education/Plan Problem List/Assessment Assessment: Decreased Activ Tolerance, Decreased Safety Aware, Decreased UE Strength, Dependent Transfers, Impaired Bed Mobility, Impaired Funct Balance, Impaired Self-Care Skills Discharge Recommendations Plan/Recommendations: Continue POC Therapy D/C Recommendations: Home w/ Family Support Patient/Family Goals To return home Independently with son. Treatment Plan/Plan of Care Treatment,Training & Education: Yes Patient would benefit from OT for education, treatment and training to promote independence in ADL's, mobility, safety and/or upper extremity function for ADL' s. Plan of Care: ADL Retraining, Functional Mobility, UE Funct Exercise/Act, UE Neuromus Re-Ed/Coord Treatment Duration: Feb 13, 2019 Frequency: 5 times per week Estimated Hrs Per Day: .25 hour per day Agreement: Yes Rehab Potential: Good Time/GCodes Start Time: 14:00 Stop Time: 14:24 Total Time Billed (hr/min): 24 Billed Treatment Time 1, EVM 14 min, Ex 10 min. Total 24 minutes. LISA PARKER OT Jan 16, 2019 15:56
[2019-01-16 16:33] VITALS: BP 137/74
[2019-01-16] MEDS: ATORVASTATIN 40 MG (LIPITOR) TABLET PO SCH (20:21)
[2019-01-16 20:38] VITALS: BP 131/82
[2019-01-17] VITALS: BP 150/82
[2019-01-17] MEDS: MEROPENEM 500 MG/SWFI 10 ML IV PUSH IV SCH ×8 (05:57→23:54)
[2019-01-17] MEDS: SUCRALFATE 1 GM (CARAFATE) TAB PO SCH ×4 (06:01→20:20)
[2019-01-17] MEDS: LEVOTHYROXINE 100 MCG (LEVOTHROID) TAB PO SCH (06:01)
[2019-01-17] MEDS: metFORMIN 500 MG (GLUCOPHAGE) TAB PO SCH ×2 (06:01→17:43)
[2019-01-17] MEDS: LEVOTHYROXINE 75 MCG (LEVOTHROID) TABLET PO SCH (06:01)
[2019-01-17 06:04] LABS: BASOPHILS % (AUTO) 0 % (0-10); EOSINOPHILS # (AUTO) 0.1 10^3/uL (0.0-0.3); EOSINOPHILS % (AUTO) 2 % (0-10); HEMATOCRIT 41 % (35-52); HEMOGLOBIN 13.2 G/DL (11.5-16.0); LYMPHOCYTES # (AUTO) 1.6 X 10^3 (1.0-4.0); LYMPHOCYTES % (AUTO) 31 % (12-44); MEAN CORPUSCULAR HEMOGLOBIN 29 PG (25-34); MEAN CORPUSCULAR HGB CONC 32 G/DL (32-36); MEAN CORPUSCULAR VOLUME 90 FL (80-99); MEAN PLATELET VOLUME 9.1 FL (7.4-10.4); MONOCYTES # (AUTO) 0.4 X 10^3 (0.0-1.0); MONOCYTES % (AUTO) 8 % (0-12); NEUTROPHILS % (AUTO) 59 % (42-75); PLATELET COUNT 266 10^3/uL (130-400); RED CELL DISTRIBUTION WIDTH 14.1 % (10.0-14.5)
[2019-01-17 06:23] LABS: ALANINE AMINOTRANSFERASE 53 U/L (0-55); ALBUMIN 3.4 GM/DL (3.2-4.5); ALKALINE PHOSPHATASE 60 U/L (40-136); BILIRUBIN,TOTAL 0.7 MG/DL (0.1-1.0); BUN/CREATININE RATIO 6; CALCIUM 8.4 MG/DL (8.5-10.1); CARBON DIOXIDE 27 MMOL/L (21-32); CHLORIDE 102 MMOL/L (98-107); CREATININE SERUM 0.72 MG/DL (0.60-1.30); GFR ESTIMATED > 60; GLUCOSE 142 MG/DL (70-105); POTASSIUM 3.6 MMOL/L (3.6-5.0); SODIUM 139 MMOL/L (135-145); TOTAL PROTEIN 6.1 GM/DL (6.4-8.2)
[2019-01-17] MEDS: inSUlin ASPART (NovoLOG) 1 UNIT/0.01 ML (CHARGE PER UNIT) SC SCH ×4 (06:26→20:20)
[2019-01-17] MEDS: RT-ALBUTEROL/IPRATROPIUM 3 ML (DUONEB) VIAL INH SCH ×4 (07:08→19:59)
[2019-01-17] MEDS: LOSARTAN 50 MG (COZAAR) TAB PO SCH (08:43)
[2019-01-17] MEDS: MONTELUKAST 10 MG (SINGULAIR) TAB PO SCH (08:43)
[2019-01-17] MEDS: rOPINIRole 1 MG (REQUIP) TABLET PO SCH (08:43)
[2019-01-17 08:50] VITALS: BP 139/65
--- NOTE | 2019-01-17 09:25 | Progress Note-Hospitalist ---
Subjective HPI/CC On Admission Date Seen by Provider: Jan 17, 2019 Time Seen by Provider: 09:00 Subjective/Events-last exam Pt doing much better No emesis Will ambulate on her own today Will heplock IV fluid Had a BM yesterday Crackles are noted on lung exam and since she was a bounce back readmission will initiate very low dose of Solumedrol to help with the bronchospasm Having a neck rash and that is an uncertain source causing that but the steroid will likely help that. In addition I will give Benadryl 12.5 mg Q 8hrs Review of Systems General: Fatigue Pulmonary: Dyspnea Objective Exam Vital Signs Vital Signs Date Time Temp Pulse Resp B/P (MAP) Pulse Ox O2 Delivery O2 Flow Rate FiO2 01/17/19 16:02 98.0 77 20 141/76 (97) 93 Room Air 01/15/19 20:00 1.00 01/13/19 23:21 28 Capillary Refill : Less Than 3 SecondsLess Than 3 Seconds General Appearance: No Apparent Distress, WD/WN, Chronically ill HEENT: TMs Normal, Pharynx Normal, Other (abnormal pupil on the left with patient has history of cataract surgery) Neck: Non Tender, Supple Respiratory: Chest Non Tender, No Accessory Muscle Use, Crackles, Wheezing Cardiovascular: Regular Rate, Rhythm, No Murmur Gastrointestinal: Non Tender, Soft Back: Normal Inspection, No CVA Tenderness, No Vertebral Tenderness Extremity: Normal Capillary Refill, Normal Range of Motion, Non Tender, No Calf Tenderness Neurologic/Psychiatric: Alert, Oriented x3 Results/Procedures Lab Laboratory Tests 01/17/19 05:35 Patient resulted labs reviewed. Assessment/Plan Assessment and Plan Assess & Plan/Chief Complaint Assessment: Pneumonia Neck rash? Plan: Abx Nebs O2 HLIVF due to vomiting episode resolved Replace potassium IV steroids Benadryl low dose for neck rash Diagnosis/Problems Diagnosis/Problems (1) Pneumonia Status: Acute Qualifiers: Pneumonia type: due to unspecified organism Laterality: right Lung location: lower lobe of lung Qualified Codes: J18.1 - Lobar pneumonia, unspecified organism (2) Uncontrolled diabetes mellitus Status: Chronic Qualifiers: Diabetes mellitus type: type 2 Glycemic state: with hyperglycemia Qualified Codes: E11.65 - Type 2 diabetes mellitus with hyperglycemia (3) Nausea and vomiting Status: Resolved Qualifiers: Vomiting Intractability: unspecified Resolution Date/Time: 01/17/19 @ 13:27 (4) CAD (coronary artery disease) Status: Chronic Qualifiers: Coronary Disease-Associated Artery/Lesion type: [place] artery [place] vs. transplanted heart: [place] heart Associated angina: without angina Qualified Codes: I25.10 - Atherosclerotic heart disease of [place] coronary artery without angina pectoris (5) Fall Status: Resolved Qualifiers: Encounter type: subsequent encounter Qualified Codes: W19.XXXD - Unspecified fall, subsequent encounter (6) Head injury, closed Status: Acute Qualifiers: Encounter type: subsequent encounter Qualified Codes: S09.90XD - Unspecified injury of head, subsequent encounter (7) Hypokalemia Status: Resolved Resolution Date/Time: 01/17/19 @ 13:27 (8) Bronchospasm, acute Status: Acute (9) Urticaria due to drug allergy Status: Acute Assessment & Plan: 01/17/19: Isolated to neck will start steroids anyway for wheezing and also start Benadryl low dose scheduled Clinical Quality Measures DVT/VTE Risk/Contraindication: Risk Factor Score Per Nursin RFS Level Per Nursing on Admit: 3=High MERY RAMEY DO Jan 17, 2019 09:25
--- NOTE | 2019-01-17 09:42 | Physician Query Clarification ---
PQ-Conflicting Diagnosis Admission/Discharge Admission Date: Jan 13, 2019 at 16:36 Discharge Date: The medical record reflects the following clinical scenario: History/Risk Factors: Pneumonia Nauseated/smells of urine. Clinical Findings:UA-Specific [place] 1.015m, Protein 2+, Glucose 4+, Ketone 1+ , Qsyjz-Ujfmi-Qygcaibl. Urine Culture showing > 100,000/ML Yeast. Treatment: Diflucan 150mg. Question: Do you agree with the impression of the Yeast UTI per Dr. Melgar' ED record? Please document a response below. PHYSICIAN RESPONSE Do you agree w/Consulting Dx?: Yes In responding to this query, please exercise your independent professional judgment. The purpose of this communication is to more accurately reflect the complexity of your patients condition. The fact that a question is asked does not imply that any particular answer is desired or expected. Thank you for your timely response to this clarification. Requestors name: Laurita Williamson [facility] Phone # ext [phone] or [phone] THIS PHYSICIAN QUERY FORM IS A PERMANENT PART OF THE MEDICAL RECORD LAURITA WILLIAMSON Jan 17, 2019 09:42 MERY RAMEY DO Jan 17, 2019 10:02
[2019-01-17] MEDS: methylPREDNISolone 40 MG/ML (Solu-MEDROL) VIAL IV SCH ×2 (09:54→20:20)
--- NOTE | 2019-01-17 09:56 | Physical Therapy Daily Note ---
PT Daily Note-Current Subjective Patient is very agreeable to participate with PT and reports she is feeling better and will dismiss to home tomorrow. Pain Numeric Pain Scale: 0-No Pain Location: No Pain Reported Mental Status Patient Orientation: Person, Time, Situation Attachments: IV Transfers Therapy Code Descriptions/Definitions Functional [place] Measure: 0=Not Assessed/NA 4=Minimal Assistance 1=Total Assistance 5=Supervision or Setup 2=Maximal Assistance 6=Modified [place] 3=Moderate Assistance 7=Complete [place] Therapy Quality Codes: 6 Independent with activity with or without an assistive device 5 Patient requires set up or clean up by helper. Patient completes activity by themselves 4 Supervision or touching assist (CGA). [place] provide cues , steadying assist 3 The helper provides less than half the effort to complete the activity 2 The helper provides more than half the effort to complete the activity 1 Dependent. The helper does all the effort to complete an activity 7 Patient refused to complete or attempt activity 9 The patient did not perform the activity before the current illness or injury 88 Not attempted due to Medical conditions or safety concerns Transfers (B, C, W/C) (FIM): 6 Scootin Supine to/from Sit: 6 Sit to/from Stand: 6 Bed to/from Chair: 6 Weight Bearing Right Lower Extremity: Right Full Weight Bearing Left Lower Extremity: Left Full Weight Bearing Gait Training Gait (FIM): 6 Distance (FIM): 3=150 ft Distance: 350' Gait Level of Assist: 6 Gait Assistive Device: FWW safe and steady (PLOF) Assessment Patient is currently at PLOF with all gross motor skills and does not require continued skilled PT. PT to dismiss patient from services and has instructed patient and nursing to have patient ambulate PRN in hallway with FWW. PT Short Term Goals Short Term Goals Time Frame: Jan 18, 2019 Transfers (B,C,W/C) (FIM): 6 Gait (FIM): 6 Distance (FIM): 3=150 ft Gait Level of Assist: 6 Gait Assistive Device: FWW PT Plan Treatment/Plan Treatment Plan: Discontinue PT, goals met Treatment Plan: Education, Functional Activity Jairo, Functional Strength, Gait , Safety, Therapeutic Exercise, Transfers Treatment Duration: Jan 18, 2019 Frequency: 3 times per week Estimated Hrs Per Day: .25 hour per day Patient and/or Family Agrees t: Yes Time/GCodes Time In: 920 Time Out: 930 Total Billed Treatment Time: 10 Total Billed Treatment 1 visit FA 10 min NIKHIL MACIAS PT Jan 17, 2019 09:56
--- NOTE | 2019-01-17 10:00 | Occupational Ther Daily Note ---
OT Current Status-Daily Note Subjective No pain reported. Appearance Pt. up in chair, alert and oriented. Mental Status/Objective Patient Orientation: Person, Place Therapy Code Descriptions/Definitions Functional [place] Measure: 0=Not Assessed/NA 4=Minimal Assistance 1=Total Assistance 5=Supervision or Setup 2=Maximal Assistance 6=Modified [place] 3=Moderate Assistance 7=Complete [place] ADL-Treatment Lower Body Dressing (FIM): 7 (Pt. is able to doff/don slipper socks with no difficulty, and no equipment needed.) Other Treatment OT explains to pt. OT goals. OT offers to assist pt. with shower, or sponge bath. Pt. states that she has an IV going, and would like to wait until her IV is done at later time. States that she will not have difficulty with shower. OT offered to assist pt. on walk. Pt. states that she just returned from walk. States that she hopes to leave tomorrow, and will have son and daughter in law to assist her as needed. OT does ask pt.to work on LE dressing. Pt. agrees to doff/don slipper socks. Does this with no difficulty. Pt. demonstrates good flexibility and balance. OT provides pt. with warm blanket and call light. Pt. states that she has no other needs at this time. Education OT Patient Education: Correct positioning, Modified ADL techniques, Progress toward Goal/Update tx plan, Purpose of tx/functional activities, Reviewed precautions, Rehab process Teaching Recipient: Patient Teaching Methods: Demonstration, Discussion Response to Teaching: Verbalize Understanding, Return Demonstration OT Short Term Goals Short Term Goals Time Frame: Jan 30, 2019 Transfers (B,C,W/C) (FIM): 6 Additional Short Term Goals: 1-Demonstrate ADL Tasks, 2-Verbalize Understanding , 3-ImproveStrength/Jairo 1=Demonstrate adherence to instructed precautions during ADL tasks. 2=Patient will verbalize/demonstrate understanding of assistive devices/ modifications for ADL. 3=Patient will improve strength/tolerance for activity to enable patient to perform ADL's. OT Longterm Goals Longterm Goals Time Frame: Feb 13, 2019 Eating (FIM): 7 Grooming(FIM): 7 Bathing(FIM): 7 Bathing Location: L Arm, R Arm, L Upper Leg, R Upper Leg, L Lower Leg ( including foot), R Lower Leg (including foot), Chest, Abdomen, Buttocks, Perineal Area Upper Body Dressing(FIM): 7 Lower Body Dressing(FIM): 7 Toileting(FIM): 7 Transfers (B,C,W/C) (FIM): 7 Toilet/Commode Transfer(FIM): 7 Tub Transfer(FIM): 7 Shower Transfer(FIM): 7 Additional Goals: 1-Demonstrate ADL Tasks, 2-Verbalize Understanding, 3- ImproveStrength/Jairo 1=Demonstrate adherence to instructed precautions during ADL tasks. 2=Patient will verbalize/demonstrate understanding of assistive devices/ modifications for ADL. 3=Patient will improve strength/tolerance for activity to enable patient to perform ADL's. OT Education/Plan Discharge Recommendations Plan/Recommendations: Discharge/Goals Met Therapy D/C Recommendations: Home w/ Family Support Patient/Family Goals Pt. reports no difficulties, and demonstrates ability to reach feet for ADLs with no concerns. No further OT needs warranted at this time. Treatment Plan/Plan of Care Treatment,Training & Education: Yes Treatment Duration: Feb 13, 2019 Frequency: 1 time per week Estimated Hrs Per Day: .25 hour per day Agreement: Yes Rehab Potential: Good Time/GCodes Start Time: 09:35 Stop Time: 09:45 Total Time Billed (hr/min): 10 Billed Treatment Time 1, ADL Discharge OT at this time. MAR MYERS OT Jan 17, 2019 10:00
[2019-01-17] MEDS: diphenhydrAMINE 25 MG TAB (BENADRYL) PO SCH ×2 (14:57→21:14)
[2019-01-17 16:02] VITALS: BP 141/76
[2019-01-17] MEDS: ATORVASTATIN 40 MG (LIPITOR) TABLET PO SCH (20:20)
[2019-01-18 00:02] VITALS: BP 150/86
[2019-01-18] MEDS: LEVOTHYROXINE 75 MCG (LEVOTHROID) TABLET PO SCH (06:09)
[2019-01-18] MEDS: SUCRALFATE 1 GM (CARAFATE) TAB PO SCH ×2 (06:09→11:46)
[2019-01-18] MEDS: metFORMIN 500 MG (GLUCOPHAGE) TAB PO SCH (06:09)
[2019-01-18] MEDS: diphenhydrAMINE 25 MG TAB (BENADRYL) PO SCH (06:10)
[2019-01-18] MEDS: LEVOTHYROXINE 100 MCG (LEVOTHROID) TAB PO SCH (06:10)
[2019-01-18] MEDS: MEROPENEM 500 MG/SWFI 10 ML IV PUSH IV SCH ×4 (06:10→11:47)
[2019-01-18 06:39] LABS: BASOPHILS % (AUTO) 0 % (0-10); EOSINOPHILS % (AUTO) 0 % (0-10); HEMATOCRIT 43 % (35-52); LYMPHOCYTES # (AUTO) 1.3 X 10^3 (1.0-4.0); LYMPHOCYTES % (AUTO) 12 % (12-44); MEAN CORPUSCULAR HEMOGLOBIN 29 PG (25-34); MEAN CORPUSCULAR HGB CONC 33 G/DL (32-36); MEAN CORPUSCULAR VOLUME 88 FL (80-99); MEAN PLATELET VOLUME 9.6 FL (7.4-10.4); MONOCYTES # (AUTO) 0.5 X 10^3 (0.0-1.0); MONOCYTES % (AUTO) 5 % (0-12); NEUTROPHILS # (AUTO) 8.6 X 10^3 (1.8-7.8); NEUTROPHILS % (AUTO) 83 % (42-75); PLATELET COUNT 323 10^3/uL (130-400); RED CELL DISTRIBUTION WIDTH 13.8 % (10.0-14.5); WHITE BLOOD COUNT 10.3 10^3/uL (4.3-11.0)
[2019-01-18 06:56] LABS: ALANINE AMINOTRANSFERASE 46 U/L (0-55); ALBUMIN 3.9 GM/DL (3.2-4.5); ALKALINE PHOSPHATASE 75 U/L (40-136); BILIRUBIN,TOTAL 0.8 MG/DL (0.1-1.0); BUN/CREATININE RATIO 12; CALCIUM 9.3 MG/DL (8.5-10.1); CARBON DIOXIDE 25 MMOL/L (21-32); CHLORIDE 101 MMOL/L (98-107); CREATININE SERUM 0.77 MG/DL (0.60-1.30); GFR ESTIMATED > 60; GLUCOSE 189 MG/DL (70-105); POTASSIUM 3.9 MMOL/L (3.6-5.0); SODIUM 138 MMOL/L (135-145); TOTAL PROTEIN 7.1 GM/DL (6.4-8.2)
[2019-01-18] MEDS: inSUlin ASPART (NovoLOG) 1 UNIT/0.01 ML (CHARGE PER UNIT) SC SCH ×2 (07:04→11:33)
[2019-01-18 08:00] VITALS: BP 132/66
[2019-01-18] MEDS: methylPREDNISolone 40 MG/ML (Solu-MEDROL) VIAL IV SCH (08:54)
[2019-01-18] MEDS: rOPINIRole 1 MG (REQUIP) TABLET PO SCH (08:55)
[2019-01-18] MEDS: MONTELUKAST 10 MG (SINGULAIR) TAB PO SCH (08:55)
[2019-01-18] MEDS: LOSARTAN 50 MG (COZAAR) TAB PO SCH (08:55)
[2019-01-18] MEDS ORDERED: PRED-501 PO (09:57)
[2019-01-18] MEDS ORDERED: IPRA3AMP31 IH (09:57)
--- NOTE | 2019-01-18 10:06 | Discharge Summary-Hospitalist ---
Diagnosis/Chief Complaint Date of Admission Jan 13, 2019 at 16:36 Date of Discharge Discharge Date: Jan 18, 2019 Discharge Diagnosis (1) Pneumonia Status: Acute (2) Uncontrolled diabetes mellitus Status: Chronic (3) Nausea and vomiting Status: Resolved (4) CAD (coronary artery disease) Status: Chronic (5) Fall Status: Resolved (6) Head injury, closed Status: Acute (7) Hypokalemia Status: Resolved (8) Bronchospasm, acute Status: Acute (9) Urticaria due to drug allergy Status: Acute Assessment & Plan: 01/17/19: Isolated to neck will start steroids anyway for wheezing and also start Benadryl low dose scheduled Discharge Summary Discharge Physical Exam Allergies: Coded Allergies: meropenem (Verified Allergy, Intermediate, RASH, 01/18/19) developed rash after 4 days on therapy Penicillins (Unverified Allergy, Unknown, ANAPHALYTIC SHOCK, 03/20/14) ceftriaxone (Unverified Allergy, Unknown, 02/03/13) ceftriaxone sodium (Verified Allergy, Unknown, 03/20/14) Vitals & I&Os Vital Signs Date Time Temp Pulse Resp B/P (MAP) Pulse Ox O2 Delivery O2 Flow Rate FiO2 01/18/19 10:18 92 Room Air 01/18/19 08:00 97.0 88 16 132/66 (88) 01/15/19 20:00 1.00 01/13/19 23:21 28 General Appearance: No Apparent Distress, WD/WN, Chronically ill HEENT: TMs Normal, Pharynx Normal, Other (abnormal pupil on the left with patient has history of cataract surgery) Respiratory: Chest Non Tender, No Accessory Muscle Use, Crackles, Wheezing Cardiovascular: Regular Rate, Rhythm, No Murmur Gastrointestinal: Non Tender, Soft Extremity: Normal Capillary Refill, Normal Range of Motion, Non Tender, No Calf Tenderness Neurologic/Psychiatric: Alert, Oriented x3 Hospital Course Was the Problem List Reviewed?: Yes Hospital course: Patient had a lengthy hospital course due to readmission from pneumonia after a fall and hypoxia. Patient was maintained on meropenem and oxygen supplementation along with nebulizer treatments. Patient tolerated everything well but did have some nausea and vomiting that required IV fluid maintenance. Low potassium was supplemented with good results. IV steroids initiated which were very well-tolerated considering she has diabetes. Patient was deemed stable for discharge did not require home oxygen after RT completed the evaluation but she did need nebulizer treatment machine and that order was placed along with prednisone taper dose and DuoNeb medications sent to the clinic pharmacy. Patient still had some slight wheezing on exam on end expiratory phase but overall much improved was ambulating without difficulty and will have close follow-up as scheduled with Arvind Mcduffie on 01/23/19. Labs (last 24 hrs) Laboratory Tests 01/17/19 12:07: Glucometer 184H 01/17/19 16:07: Glucometer 225H 01/17/19 19:58: Glucometer 196H 01/18/19 05:32: White Blood Count 10.3, Red Blood Count 4.82, Hemoglobin 14.0, Hematocrit 43, Mean Corpuscular Volume 88, Mean Corpuscular Hemoglobin 29, Mean Corpuscular Hemoglobin Concent 33, Red Cell Distribution Width 13.8, Platelet Count 323, Mean Platelet Volume 9.6, Neutrophils (%) (Auto) 83H, Lymphocytes (%) (Auto) 12 , Monocytes (%) (Auto) 5, Eosinophils (%) (Auto) 0, Basophils (%) (Auto) 0, Neutrophils # (Auto) 8.6H, Lymphocytes # (Auto) 1.3, Monocytes # (Auto) 0.5, Eosinophils # (Auto) 0.0, Basophils # (Auto) 0.0, Sodium Level 138, Potassium Level 3.9, Chloride Level 101, Carbon Dioxide Level 25, Anion Gap 12, Blood Urea Nitrogen 9, Creatinine 0.77, Estimat Glomerular Filtration Rate > 60, BUN/ Creatinine Ratio 12, Glucose Level 189H, Calcium Level 9.3, Corrected Calcium 9.4, Total Bilirubin 0.8, Aspartate Amino Transf (AST/SGOT) 27, Alanine Aminotransferase (ALT/SGPT) 46, Alkaline Phosphatase 75, Total Protein 7.1, Albumin 3.9 Microbiology 01/13/19 Blood Culture - Preliminary, Resulted No growth 01/13/19 Influenza Types A,B Antigen (DYLAN) - Final, Complete 01/13/19 Urine Culture - Final, Complete Yeast species Patient resulted labs reviewed. Pending Labs Laboratory Tests 01/18/19 05:32: White Blood Count 10.3, Red Blood Count 4.82, Hemoglobin 14.0, Hematocrit 43, Mean Corpuscular Volume 88, Mean Corpuscular Hemoglobin 29, Mean Corpuscular Hemoglobin Concent 33, Red Cell Distribution Width 13.8, Platelet Count 323, Mean Platelet Volume 9.6, Neutrophils (%) (Auto) 83, Lymphocytes (%) (Auto) 12, Monocytes (%) (Auto) 5, Eosinophils (%) (Auto) 0, Basophils (%) (Auto) 0, Neutrophils # (Auto) 8.6, Lymphocytes # (Auto) 1.3, Monocytes # (Auto) 0.5, Eosinophils # (Auto) 0.0, Basophils # (Auto) 0.0, Sodium Level 138, Potassium Level 3.9, Chloride Level 101, Carbon Dioxide Level 25, Anion Gap 12, Blood Urea Nitrogen 9, Creatinine 0.77, Estimat Glomerular Filtration Rate > 60, BUN/ Creatinine Ratio 12, Glucose Level 189, Calcium Level 9.3, Corrected Calcium 9.4 , Total Bilirubin 0.8, Aspartate Amino Transf (AST/SGOT) 27, Alanine Aminotransferase (ALT/SGPT) 46, Alkaline Phosphatase 75, Total Protein 7.1, Albumin 3.9 Discussion & Recommendations Discharge Planning: <30 minutes discharge planning Discharge Home Medications: Active Scripts Active Iprat-Albut 0.5-3(2.5) mg/3 ml (Ipratropium/Albuterol Sulfate) 3 Ml Ampul.neb 3 Ml IH TID PRN Deltasone (Prednisone) 20 Mg Tablet 20 Mg PO DAILY Sucralfate 1 Gm Tablet 1 Gm PO ACHS Ventolin Hfa (Albuterol Sulfate) 1 Puff Puff 2 Puff INH Q6H PRN Reported Levofloxacin 750 Mg Tablet 750 Mg PO DAILY 5 DAY SUPPLY FILLED 01/11/19 Toviaz (Fesoterodine Fumarate) 8 Mg Tab.er.24h 8 Mg PO DAILY Singulair (Montelukast Sodium) 10 Mg Tablet 10 Mg PO DAILY Advair 500-50 Diskus (Fluticasone/Salmeterol) 1 Each Blst.w.dev 1 Puff IH BID Losartan Potassium 50 Mg Tablet 50 Mg PO DAILY Ranitidine HCl 150 Mg Tablet 150 Mg PO BID Citalopram HBr (Citalopram Hydrobromide) 10 Mg Tablet 10 Mg PO DAILY Trospium Chloride 20 Mg Tablet 20 Mg PO HS Levothyroxine Sodium 175 Mcg Tablet 175 Mcg PO DAILY Atorvastatin Calcium 40 Mg Tablet 40 Mg PO DAILY Cetirizine HCl 10 Mg Tablet 10 Mg PO DAILY Metformin HCl 500 Mg Tablet 1,000 Mg PO BID TAKES 2 (500MG) TABLETS Hydrocodon-Acetaminophn 10-325 (Hydrocodone/Acetaminophen) 1 Each Tablet 1 Tab PO Q6H PRN Ropinirole HCl 4 Mg Tablet 4 Mg PO DAILY Instructions to patient/family Please see electronic discharge instructions given to patient. Clinical Quality Measures DVT/VTE Risk/Contraindication: Risk Factor Score Per Nursin RFS Level Per Nursing on Admit: 3=High Problem Qualifiers (1) Pneumonia: Pneumonia type: due to unspecified organism Laterality: right Lung location : lower lobe of lung Qualified Codes: J18.1 - Lobar pneumonia, unspecified organism (2) Uncontrolled diabetes mellitus: Diabetes mellitus type: type 2 Glycemic state: with hyperglycemia Qualified Codes: E11.65 - Type 2 diabetes mellitus with hyperglycemia (3) Nausea and vomiting: Vomiting Intractability: unspecified (4) CAD (coronary artery disease): Coronary Disease-Associated Artery/Lesion type: [place] artery [place] vs. transplanted heart: [place] heart Associated angina: without angina Qualified Codes: I25.10 - Atherosclerotic heart disease of [place] coronary artery without angina pectoris (5) Fall: Encounter type: subsequent encounter Qualified Codes: W19.XXXD - Unspecified fall, subsequent encounter (6) Head injury, closed: Encounter type: subsequent encounter Qualified Codes: S09.90XD - Unspecified injury of head, subsequent encounter MERY RAMEY DO Jan 18, 2019 10:06
[2019-01-18] MEDS: RT-ALBUTEROL/IPRATROPIUM 3 ML (DUONEB) VIAL INH SCH (10:17)
--- NOTE | 2019-01-18 12:38 | NUR ---
CM/SS, respond to consult for nebulizer. DME: Coordinated with patient preferred agency, [facility]. Patient wanted to pick up attendant the item; however, her transport is not expected until 1700. Supervisor [employer] coordinated for HME to deliver item to hospital room for her convenience. Patient has been ambulating independently in foster. She identifies no other needs at this time.
--- NOTE | 2019-01-18 15:15 | NUR ---
Initial visit: pt's friend Vikash was visiting. Both welcomed customer sales specialist support, shared about recent struggles with health and felt improvements/healing. Positive coping and mutual support demonstrated. Offered active listening and compassionate presence. No spiritual affiliation at this time.
[2019-01-18 16:39] VITALS: BP 132/66
== END 2019-01-18 15:30 | disposition home or self-care (01) | DRG 194 ==
LOC: EDUNIT# 14:13 → ER 14:16 → 4TH 16:36
PROVIDERS: ADMIT Family Medicine; ATTEND Family Medicine
DX: J18.9 Pneumonia, unspecified organism (principal); B37.41 Candidal cystitis and urethritis; E11.65 Type 2 diabetes mellitus with hyperglycemia; J44.9 Chronic obstructive pulmonary disease, unspecified; J98.01 Acute bronchospasm; I25.10 Atherosclerotic heart disease of native coronary artery without angina pectoris; I10 Essential (primary) hypertension; L50.0 Allergic urticaria; T50.905A Adverse effect of unspecified drugs, medicaments and biological substances, initial encounter; E78.00 Pure hypercholesterolemia, unspecified; E03.9 Hypothyroidism, unspecified; E87.6 Hypokalemia; R11.2 Nausea with vomiting, unspecified; M81.0 Age-related osteoporosis without current pathological fracture; M19.91 Primary osteoarthritis, unspecified site; M54.9 Dorsalgia, unspecified; F41.9 Anxiety disorder, unspecified; F32.9 Major depressive disorder, single episode, unspecified; S09.90XA Unspecified injury of head, initial encounter; W19.XXXA Unspecified fall, initial encounter; Y92.009 Unspecified place in unspecified non-institutional (private) residence as the place of occurrence of the external cause; Z87.891 Personal history of nicotine dependence; Z95.1 Presence of aortocoronary bypass graft; Z95.5 Presence of coronary angioplasty implant and graft; Z79.84 Long term (current) use of oral hypoglycemic drugs; Z87.11 Personal history of peptic ulcer disease; Z96.653 Presence of artificial knee joint, bilateral
CPT/HCPCS: 36415; 51701; 70450; 71045; 72125; 80048; 80053; 81000; 82962; 83605; 84484; 85025; 85610; 85730; 87040; 87088; 87804; 90686; 93005; 94640; 94760; 94761; 96361; 96372; 96374; 96375

== ENCOUNTER → 2019-05-05 | Outpatient (CLI) | payer MEDICARE, MEDICAID ==
[~2019-05-05] MED LIST changes: +IPRA3AMP31 IH; +PRED-501 PO
== END ==
LOC: CARD 12:15
PROVIDERS: ATTEND Internal Medicine Cardiovascular Disease
DX: I25.10 Atherosclerotic heart disease of native coronary artery without angina pectoris (principal); R07.9 Chest pain, unspecified; I11.0 Hypertensive heart disease with heart failure; I50.9 Heart failure, unspecified; E78.5 Hyperlipidemia, unspecified
CPT/HCPCS: 93306

== ENCOUNTER → 2019-05-10 | Outpatient (CLI) | payer MEDICARE, MEDICAID ==
[~2019-05-10] VITALS: Ht 162.6 cm; Wt 95.3 kg
[~2019-05-10] MED LIST changes: +CATHETER FLUSH 10 ML SYR IV PRN; +REGADENOSON 0.4 MG/5 ML SYR (LEXISCAN) IV ONE
--- NOTE | 2019-05-10 14:55 | STRESS TEST ---
DATE OF SERVICE: 05/10/2019 LEXISCAN MYOVIEW STRESS TEST REPORT REFERRING PHYSICIAN: [facility]. Baseline heart rate is 72. Baseline blood pressure 158/98. Baseline EKG is sinus rhythm with no ischemic changes. In summary, the patient was injected with 10.62 mCi of technetium-99 Myoview and the resting images were obtained. Then, the patient received 0.4 mg of Lexiscan followed by 29.2 mCi of technetium-99 Myoview. Throughout the test, there were no EKG changes. The resting and stress images were reviewed and compared in the short axis, horizontal long axis, and vertical long axis views. Review of the images showed breast attenuation affecting the quality of the images. There is no significant ischemia or infarction was seen. SSS is 3, SDS 2, TID value 0.9. On the gated images, the left ventricle appeared to be normal size with normal contractility. Calculated ejection fraction 67%. CONCLUSION: 1. The patient tolerated Lexiscan well. 2. Breast attenuation with no significant ischemia or infarction on SPECT images. 3. Normal left ventricular size with normal contractility. Calculated ejection fraction 67%. Job ID: [id number] DocumentID: [id number] Dictated Date: 05/10/2019 14:32:30 Supervisor [employer] Date: 05/10/2019 14:53:51 Dictated By: LELIA PINEDA MD
== END ==
LOC: CARD 05:44
PROVIDERS: ATTEND Internal Medicine Cardiovascular Disease
DX: I25.10 Atherosclerotic heart disease of native coronary artery without angina pectoris (principal); R07.89 Other chest pain; I11.0 Hypertensive heart disease with heart failure; I50.9 Heart failure, unspecified; E78.5 Hyperlipidemia, unspecified
CPT/HCPCS: 78452; 93017

== ENCOUNTER 2019-11-09 13:18 | Outpatient (CLI) | payer MEDICARE, MEDICAID ==
[~2019-11-09] VITALS: Ht 162.6 cm; Wt 95.3 kg
[~2019-11-09 13:18] MED LIST changes: -CATHETER FLUSH 10 ML SYR IV PRN; -REGADENOSON 0.4 MG/5 ML SYR (LEXISCAN) IV ONE
[2019-11-09 13:26] VITALS: BP 144/87
[2019-11-09] MEDS ORDERED: LOSA100T57 PO (13:49)
[2019-11-09] MEDS ORDERED: GLIP5TAB13 PO (13:49)
[2019-11-09] MEDS ORDERED: OLOP5DRO13 OU (13:49)
== END 2019-11-09 14:00 | disposition home or self-care (01) ==
LOC: PREOP 13:18
PROVIDERS: ATTEND Podiatrist Foot & Ankle Surgery
DX: Z01.818 Encounter for other preprocedural examination (principal)
CPT/HCPCS: 87081

== ENCOUNTER 2019-11-13 06:05 | Day surgery (SDC) | payer MEDICARE, MEDICAID ==
[~2019-11-13] VITALS: Ht 162 cm; Wt 95.3 kg
[~2019-11-13 06:05] MED LIST changes: +GLIP5TAB13 PO; +LOSA100T57 PO; +OLOP5DRO13 OU
[2019-11-13] MEDS ORDERED: LACTATED RINGERS 1,000 ML IV PRN (06:11)
[2019-11-13] MEDS ORDERED: CLINDAMYCIN 600 MG/50 ML IVPB 50 ML IV ONE (06:15)
[2019-11-13 06:25] VITALS: BP 138/87
[2019-11-13] MEDS ORDERED: ONDANSETRON 4 MG/2 ML (SDV) Z0FRAN ONE (06:46)
[2019-11-13] MEDS ORDERED: LIDOCAINE PF 2% 5 ML (XYLOCAINE) VIAL ONE (06:46)
[2019-11-13] MEDS ORDERED: MIDAZOLAM 2 MG/2 ML (VERSED) VIAL ONE (06:46)
[2019-11-13] MEDS ORDERED: PROPOFOL INJECTION 50 ML IV ONE (06:46)
[2019-11-13] MEDS ORDERED: fentaNYL INJECTION 100 MCG/2 ML AMP ONE (06:47)
[2019-11-13] MEDS ORDERED: BUPIVACAINE 0.5% 30 ML (SENSORCAINE) VIAL ONE (07:16)
[2019-11-13] MEDS ORDERED: LIDOCAINE 1% INJ 20 ML 20 ML VIAL ONE (07:16)
--- NOTE | 2019-11-13 07:35 | Progress Note-Pre Operative ---
Pre-Operative Progress Note H&P Reviewed The H&P was reviewed, patient examined and no changes noted. Date Seen by Provider: Nov 13, 2019 Time Seen by Provider: 07:34 Date H&P Reviewed: Nov 13, 2019 Time H&P Reviewed: 07:34 Pre-Operative Diagnosis: Hallux Valgus, left ALEXY TREVINO DPM Nov 13, 2019 07:35
[2019-11-13 09:01] VITALS: BP 98/64
[2019-11-13] MEDS ORDERED: LACTATED RINGERS 1,000 ML IV SCH (09:03)
--- NOTE | 2019-11-13 09:03 | Progress Note-Post Operative ---
Post-Operative Progess Note Surgeon (s)/Brainer (s) Surgeon ALEXY TREVINO DPM Brainer: none Pre-Operative Diagnosis Hallux Valgus, left Post-Operative Diagnosis Same Procedure & Operative Findings Date of Procedure 11/13/19 Procedure Performed/Findings Modified Willy-Crescencio Bunionectomy left Anesthesia Type MAC Estimated Blood Loss Estimated blood loss (mL): Minimal Specimens/Packing Specimens Removed None ALEXY TREVINO DPM Nov 13, 2019 09:03
[2019-11-13] MEDS ORDERED: CLIN150C2 PO (09:06)
--- NOTE | 2019-11-13 09:06 | Anesthesia-General Post-Op ---
MAC Patient Condition Mental Status/LOC: Same as Preop Cardiovascular: Satisfactory Nausea/Vomiting: Absent Respiratory: Satisfactory Pain: Controlled Complications: Absent Post Op Complications Complications None Follow Up Care/Instructions Patient Instructions None needed. Anesthesiology Discharge Order Discharge Order Patient is doing well, no complaints, stable vital signs, no apparent adverse anesthesia problems. No complications reported per nursing. CLYDE CRABTREE CRNA Nov 13, 2019 09:06
[2019-11-13 09:10] VITALS: BP 97/74
[2019-11-13] MEDS ORDERED: HYDROcodone/APAP 5 MG/325 MG (LORTAB) TAB PO PRN (09:15)
[2019-11-13] MEDS ORDERED: morphine INJ 10 MG/ML 1ML (SYR OR VIAL) IVP ONE (09:15)
[2019-11-13 09:20] VITALS: BP 125/78
[2019-11-13 09:30] VITALS: BP_SYST 128; BP_SYST 138; BP_DIAS 82; BP_DIAS 83
--- NOTE | 2019-11-13 09:54 | Diagnostic Imaging Report ---
EXAMINATION: Left foot radiographs, 2 views. COMPARISON: August 10, 2017. HISTORY: 69-year-old female, postop. FINDINGS: There have been interval osteotomy changes of the first metatarsal. There is a fixation pin at the level of the osteotomy changes. There are also procedural changes of the first proximal phalanx. There is no cortical or aggressive bone destruction. There is no aggressive periosteal reaction. There is normal variant congenital fusion of the fifth digit middle and distal phalanges. There is no identified acute fracture. There is degenerative type calcaneal enthesopathy. There is mild degenerative-type enthesopathy of the dorsal aspect of the midfoot. IMPRESSION: 1. Postoperative changes of the first digit without identified complication. Dictated by: Dictated on workstation # [id number]
[2019-11-13 10:00] VITALS: BP 141/74
--- NOTE | 2019-11-13 10:43 | Physical Therapy Ortho Eval ---
PT Orthopedic Evaluation Type of Surgery hallux valgus left foot Prior Level of Function Current Living Status: Other Family Locomotion (Upon Admit): Independent provided pt with a FWW; currently, she has a 4WW Subjective Subjective Agrees to PT. Reports she will have help at home upon discharge. Reports she lives in an apartment and does not have stairs. Entry Into Home: Level Entry Motor Control Motor Control: Motor Control WNL ROM ROM: WFL Strength Strength: WFL Transfer Transfers (B, C, W/C) (FIM): 5 (6 post eval) Gait Gait Assistive Device: FWW Right Lower Extremity: Right Weight Bearing Status RLE: Full Weight Bearing Left Lower Extremity: Left Weight Bearing Status LLE: Non Weight Bearing Other Weight Bearing Inst.: Heel contact for transfers and balance Gait (FIM): 4 (SBA post treatment with FWW; with cues for NWB status) Distance (FIM): 1=522-53 ft Summary/Comments Pt able to maintain NWB status but tires quickly. Only able to go short distances Treatment Rendered Treatment: Gait Train Assessment/Goals Goal Time Frame: 1 Visit Safe Ambulation: Yes Plan Treatment Plan: Discharge PT/Family Agrees to Plan: Yes Time Time In: 1000 Time Out: 1023 Total Billed Treatment Time: 23 Billed Treatment Time visit EVL 23 WOOD [place] PT Nov 13, 2019 10:43
--- NOTE | 2019-11-13 15:51 | OPERATIVE REPORT ---
DATE OF SERVICE: 11/13/2019 SURGEON: Alexy Trevino DPM. PREOPERATIVE DIAGNOSIS: Hallux abductovalgus with metatarsal primus varus, left foot. POSTOPERATIVE DIAGNOSIS: Hallux abductovalgus with metatarsal primus varus, left foot. PROCEDURE: Modified Willy-Crescencio bunionectomy, left. WOUND CLASS: Clean. ANESTHESIA: Monitored anesthesia care. HEMOSTASIS: Pneumatic ankle tourniquet at 250 mmHg. INDICATIONS: This 69-year-old female presents complaining of painful bunion, left foot. Conservative therapy is met with unsatisfactory results and the patient is agreeable to surgical intervention after risks and complications were discussed at length. No guarantees were extended to the patient and she is willing to proceed. DESCRIPTION OF PROCEDURE: The patient was brought back to the operating table, placed in secure supine position. Appropriate timeout was performed. Pneumatic ankle tourniquet was placed on the left lower extremity over several layers of padding. The left foot was then anesthetized utilizing 16 mL of 1:1 mixture of 1% Xylocaine, 0.5% Marcaine injected in a Carr block. The left foot was then prepped and draped in normal sterile manner. The left foot was then elevated and allowed to exsanguinate after which the tourniquet was inflated to 250 mmHg. Attention was then directed to the dorsal aspect of the first metatarsophalangeal joint where a 6 cm longitudinal linear incision was created. The incision was deepened in same plane with great care to identify and retract all vital neurovascular structures. Only necessary blood vessels were cauterized as encountered. The incision was deepened down to the capsular tissue where a longitudinal capsulotomy was performed medial to the extensor hallucis longus tendon. The incision was deepened down to bone and this exposed the hypertrophic medial eminence of the first metatarsal head, which was resected utilizing a power sagittal saw. Next, blunt dissection was carried out into the first intermetatarsal space where a lateral release was performed. The lateral capsulorrhaphy was performed as well as release of the conjoint tendon of the adductor hallucis. The fibular sesamoidal ligament was also released. The hallux was then forcibly adducted releasing additional fibers holding in its abnormal position. Attention was redirected to the medial aspect of the first metatarsal head area where a Chevron-type osteotomy was performed utilizing a power sagittal saw. Once the capital fragment was translocated laterally, it was fixated in its corrected position utilizing a 0.062 threaded K-wire driven from dorsal proximal to plantar distal across the osteotomy. The K-wire was cut, flush with the dorsal aspect of the first metatarsal. Excellent bony apposition and fixation was appreciated at this time. The head of the left first metatarsal was further contoured and smoothed with a power sagittal saw and power bur. The wound was flushed with copious amounts of normal saline. Attention was then directed to the proximal phalanx of the left hallux where a dorsal spurring was noted to the base of the proximal phalanx. The spur was reduced with a rongeur. Next, the Crescencio type procedure was performed. The subperiosteal dissection was carried out to the diaphysis of the proximal phalanx, after which a sagittal saw was utilized to create a wedge osteotomy. The base of the wedge was medial and the lateral cortices held intact and the wedge was resected. Once that was closed the realignment of the distal phalanx in a more appropriate sagittal alignment with the first metatarsal. The wound was flushed with copious amounts of normal saline. Two check pilot holes were created at the dorsal medial aspect of the osteotomy after which a 28-gauge monofilament wire was passed through the check pilot holes and securing the osteotomy in a closed position. Excellent bony apposition and fixation was appreciated at this time. The wound was flushed with copious amounts of normal saline and closure was then performed in layers. Deep closure was performed with 3-0 Vicryl, superficial with 4-0 Vicryl, skin closure with 4-0 Prolene in a horizontal mattress type stitch. Postoperative dressing consisted of Betadine soaked Adaptic, sterile 4 x 4, sterile Kerlix all secured with a Coban wrap. The patient tolerated the anesthesia and procedure well, was transported from the operating room to the recovery area with vital signs stable and vascular status intact to all digits of the left foot. Postoperative instructions were dispensed to the patient. She was given a prescription for clindamycin. She has been already given a prescription for hydrocodone. We will see the patient back in the office in 10 days' period of time. In the meantime, she is to be nonweightbearing on the left foot with heel contact for transfers and balance only. Job ID: [id number] DocumentID: [id number] Dictated Date: 11/13/2019 09:12:57 Employee Development Director Date: 11/13/2019 15:50:36 Dictated By: ALEXY TREVINO DPM
== END 2019-11-13 10:25 | disposition home or self-care (01) ==
LOC: SDC 06:05
PROVIDERS: ATTEND Podiatrist Foot & Ankle Surgery
DX: M20.12 Hallux valgus (acquired), left foot (principal); M20.32 Hallux varus (acquired), left foot; I10 Essential (primary) hypertension; I25.10 Atherosclerotic heart disease of native coronary artery without angina pectoris; E11.69 Type 2 diabetes mellitus with other specified complication; E78.5 Hyperlipidemia, unspecified; E66.9 Obesity, unspecified; J44.9 Chronic obstructive pulmonary disease, unspecified; K21.9 Gastro-esophageal reflux disease without esophagitis; E03.9 Hypothyroidism, unspecified; M19.90 Unspecified osteoarthritis, unspecified site; G89.29 Other chronic pain; F32.9 Major depressive disorder, single episode, unspecified; F41.9 Anxiety disorder, unspecified; Z68.36 Body mass index [BMI] 36.0-36.9, adult; Z88.1 Allergy status to other antibiotic agents; Z88.0 Allergy status to penicillin; Z95.1 Presence of aortocoronary bypass graft; Z90.49 Acquired absence of other specified parts of digestive tract; Z90.89 Acquired absence of other organs; Z90.710 Acquired absence of both cervix and uterus; Z79.84 Long term (current) use of oral hypoglycemic drugs; Z88.8 Allergy status to other drugs, medicaments and biological substances; Z79.899 Other long term (current) drug therapy; Z80.9 Family history of malignant neoplasm, unspecified
CPT/HCPCS: 73620; 82962

== ENCOUNTER → 2020-05-07 | Outpatient (CLI) | payer MEDICARE, MEDICAID ==
[~2020-05-07] MED LIST changes: +ACHYD1T PO; +CLIN150C2 PO; -HYDR-3820 PO; -MECL-106 PO; +MECL-149 PO
[2020-05-07 11:40] LABS: ALANINE AMINOTRANSFERASE 104 U/L (0-55); ALBUMIN 4.7 GM/DL (3.2-4.5); ALKALINE PHOSPHATASE 110 U/L (40-136); BILIRUBIN,TOTAL 0.7 MG/DL (0.1-1.0); BUN/CREATININE RATIO 11; CALCIUM 9.9 MG/DL (8.5-10.1); CARBON DIOXIDE 20 MMOL/L (21-32); CHLORIDE 101 MMOL/L (98-107); CHOLESTEROL 313 MG/DL (< 200); CREATININE SERUM 1.32 MG/DL (0.60-1.30); GFR ESTIMATED 40; HDL CHOLESTEROL 43 MG/DL (40-60); POTASSIUM 4.3 MMOL/L (3.6-5.0); SODIUM 137 MMOL/L (135-145); TOTAL PROTEIN 8.7 GM/DL (6.4-8.2); TRIGLYCERIDES 358 MG/DL (<150); VLDL CHOLESTEROL 72 MG/DL (5-40)
[2020-05-07 11:45] LABS: GLUCOSE 447 MG/DL (70-105)
== END ==
LOC: LAB 10:59
PROVIDERS: ATTEND Internal Medicine Cardiovascular Disease
DX: E78.2 Mixed hyperlipidemia (principal); E11.9 Type 2 diabetes mellitus without complications; I11.0 Hypertensive heart disease with heart failure; I50.9 Heart failure, unspecified
CPT/HCPCS: 36415; 80053; 80061

== ENCOUNTER → 2020-06-05 | Outpatient (CLI) | payer MEDICARE, MEDICAID ==
[~2020-06-05] VITALS: Ht 163 cm; Wt 91.0 kg
[~2020-06-05] MED LIST changes: +REGADENOSON 0.4 MG/5 ML SYR (LEXISCAN) IV ONE
[2020-06-05] MEDS: CATHETER FLUSH 10 ML SYR IV PRN ×2 (07:18→08:52)
[2020-06-05 08:52] VITALS: BP 140/74
--- NOTE | 2020-06-05 12:22 | Cardiology Stress Test Report ---
Stress Test Report Date of Procedure/Referring: Date of Procedure: Jun 05, 2020 PCP Lelia Polanco MD Admitting Physician [facility] Baseline Heart Rate: 86 Baseline Blood Pressure: Blood Pressure Systolic: 140 Blood Pressure Diastolic: 74 Baseline Vitals Vital Signs Date Time Temp Pulse Resp B/P (MAP) Pulse Ox O2 Delivery O2 Flow Rate FiO2 06/05/20 08:52 82 16 140/74 (96) 96 Room Air Baseline EKG: Baseline EKG: Normal sinus rhythm Summary After explaining the procedure to the patient, she signed a consent and then brought to the stress nuclear laboratory. Patient received 0.4 mg Lexiscan for stress test, ECG, heart rate and blood pressure were monitored continuously. Resting and stress dose of radio tracer were injected, imaging was acquired and reviewed in short axis, horizontal long axis and vertical long axis views. TID: 1.16 SSS: 7 SDS: 7 EF: 68 1. Patient tolerated Lexiscan well 2. Breast attenuation with mild decrease uptake involving the base of the anterior wall and anterolateral wall with subtle reversibility most probably due to the breast attenuation, no significant ischemia or infarction was noted 3. Normal left ventricular size, EF 68 percent LELIA POLANCO MD Jun 05, 2020 12:22
== END ==
LOC: CARD 07:04
PROVIDERS: ATTEND Internal Medicine Cardiovascular Disease
DX: E11.9 Type 2 diabetes mellitus without complications (principal); E78.5 Hyperlipidemia, unspecified; I11.0 Hypertensive heart disease with heart failure
CPT/HCPCS: 78452; 93017; 93306; A9502

== ENCOUNTER → 2020-11-07 | Outpatient (CLI) | payer MEDICARE, MEDICAID ==
[~2020-11-07] MED LIST changes: -REGADENOSON 0.4 MG/5 ML SYR (LEXISCAN) IV ONE
[2020-11-07 11:21] LABS: ALANINE AMINOTRANSFERASE 30 U/L (0-55); ALKALINE PHOSPHATASE 93 U/L (40-136); BILIRUBIN,TOTAL 0.4 MG/DL (0.1-1.0); BUN/CREATININE RATIO 13; CALCIUM 8.9 MG/DL (8.5-10.1); CARBON DIOXIDE 26 MMOL/L (21-32); CHLORIDE 108 MMOL/L (98-107); CHOLESTEROL 204 MG/DL (< 200); CREATININE SERUM 0.86 MG/DL (0.60-1.30); GFR ESTIMATED > 60; GLUCOSE 83 MG/DL (70-105); HDL CHOLESTEROL 41 MG/DL (40-60); POTASSIUM 3.7 MMOL/L (3.6-5.0); SODIUM 142 MMOL/L (135-145); TOTAL PROTEIN 7.6 GM/DL (6.4-8.2); TRIGLYCERIDES 202 MG/DL (<150); VLDL CHOLESTEROL 40 MG/DL (5-40)
== END ==
LOC: LAB 10:43
PROVIDERS: ATTEND Physician Assistant
DX: E11.9 Type 2 diabetes mellitus without complications (principal); E78.5 Hyperlipidemia, unspecified; I10 Essential (primary) hypertension
CPT/HCPCS: 36415; 80053; 80061

== ENCOUNTER → 2020-12-27 | Outpatient (CLI) | payer MEDICARE, MEDICAID ==
[2020-12-27 13:21] LABS: ALBUMIN 4.1 GM/DL (3.2-4.5); BILIRUBIN,DIRECT 0.2 MG/DL (0.0-0.3); BILIRUBIN,INDIRECT 0.3 MG/DL; BILIRUBIN,TOTAL 0.5 MG/DL (0.1-1.0); TOTAL PROTEIN 7.5 GM/DL (6.4-8.2)
== END ==
LOC: LAB 12:48
PROVIDERS: ATTEND Physician Assistant
DX: E78.2 Mixed hyperlipidemia (principal)
CPT/HCPCS: 36415; 80076